=== PATIENT | female | born 1960 | race Caucasian/White ===

== ENCOUNTER 2020-05-10 08:00 | Outpatient (RCR) | payer OTHER, SELFPAY | END 2020-05-19 10:32 | disposition home or self-care (01) | LOC: PT.CARL 08:00 | PROVIDERS: Visit Provider Orthopaedic Surgery Sports Medicine | DX: Z47.1 Aftercare following joint replacement surgery (principal); M25.511 Pain in right shoulder | CPT/HCPCS: 97010; 97014; 97033; 97110; 97140; 97163; 97164; G0283 ==

== ENCOUNTER 2022-01-15 13:50 | Inpatient (IN) | payer MEDICARE, MEDICAID, SELFPAY ==
[2022-01-15] VITALS (12 sets, daily range): BP systolic 145–172; BP diastolic 65–86; PULSE 83–109; RESP 16–22; TEMP 37; O2SAT 54–100; BMI 17.4; BMI 18.6
--- NOTE | 2022-01-15 14:24 | XR_ITS ---
PROCEDURE INFORMATION: Exam: XR Chest Exam date and time: 01/15/2022 2:24 PM Age: 61 years old Clinical indication: Patient HX: Shortness of breath, smoker, no chest surgeries. ; Additional info: SOA TECHNIQUE: Imaging protocol: XR of the chest. Views: 1 view. COMPARISON: No relevant prior studies available. FINDINGS: Airway: Patent Lungs: Diffuse interstitial prominence. Ground-glass and dense airspace consolidation in the right lung base. Diffuse patchy ground-glass airspace opacities seen throughout the lungs. COPD/emphysema is appreciated. Pleural spaces: Unremarkable. No pleural effusion. No pneumothorax. Heart/Mediastinum: The heart is moderately enlarged. Vasculature: Calcified aortic knob. Bones/joints: Reverse right shoulder arthroplasty. Partially visualized lumbar spine fixation hardware without complications. No acute skeletal abnormality or aggressive osseous lesion. IMPRESSION: 1. Diffuse interstitial and early airspace disease, worse in the right lung base. Differential would include pulmonary edema or atypical infectious pneumonia. Atypical viral organisms should be entertained in the appropriate clinical setting. 2. COPD/emphysema.
--- NOTE | 2022-01-15 14:27 | HMH.EDGENADL ---
ED Disposition Clinical Impression: Acute respiratory failure with hypoxia Pneumonia Qualifiers: Pneumonia type: due to unspecified organism Laterality: bilateral Lung location: lower lobe of lung Qualified Code(s): J18.9 - Pneumonia, unspecified organism Sepsis Qualifiers: Sepsis type: sepsis due to unspecified organism Sepsis acute organ dysfunction status: with acute organ dysfunction Severe sepsis acute organ dysfunction type: acute respiratory failure Acute respiratory failure type: with hypoxia Severe sepsis shock status: without septic shock Qualified Code(s): A41.9 - Sepsis, unspecified organism; R65.20 - Severe sepsis without septic shock; J96.01 - Acute respiratory failure with hypoxia Disposition: Admitted As Inpatient Condition on Discharge: Serious Instructions: DI for Altered Mental Status Referrals: Provider,Referral, MD [Primary Care Provider] - - Critical Care Critical Care Time: No Attestation: On 01/15/22, the high probability of a clinically significant, sudden or life threatening deterioration of the following system(s) required my full and direct attention, intervention and personal management. The time I documented below is in addition to time spent performing reported procedures but includes the following listed in this critical care notation. Medical Decision Making - Kayden Inquiry Pt receiving controlled substance: No Vital Signs: 01/15/22 13:52 01/15/22 13:53 01/15/22 13:55 Temperature 98.6 F Temperature Source Oral Pulse Rate Pulse Rate [Left Radial] 103 H Respiratory Rate 16 Blood Pressure Blood Pressure [Right Arm] 172/65 H Blood Pressure Mean Blood Pressure Mean [Right Arm] 100 Blood Pressure Source [Right Arm] Automatic Cuff Blood Pressure Position [Right Arm] Sitting 02 Sat by Pulse Oximetry 54 L 83 L 95 Oxygen Delivery Method Room Air Nasal Cannula Non-Rebreather Oxygen Flow Rate (LPM) 6 15 01/15/22 14:00 01/15/22 14:30 01/15/22 15:30 Temperature Temperature Source Pulse Rate 109 H 99 H 94 H Pulse Rate [Left Radial] Respiratory Rate Blood Pressure 172/85 H 155/82 H 161/86 H Blood Pressure [Right Arm] Blood Pressure Mean Blood Pressure Mean [Right Arm] Blood Pressure Source [Right Arm] Blood Pressure Position [Right Arm] 02 Sat by Pulse Oximetry 55 L 100 100 Oxygen Delivery Method Room Air Non-Rebreather Oxygen Flow Rate (LPM) 01/15/22 16:00 Temperature Temperature Source Pulse Rate 97 H Pulse Rate [Left Radial] Respiratory Rate Blood Pressure 154/86 H Blood Pressure [Right Arm] Blood Pressure Mean 105 Blood Pressure Mean [Right Arm] Blood Pressure Source [Right Arm] Blood Pressure Position [Right Arm] 02 Sat by Pulse Oximetry 100 Oxygen Delivery Method Oxygen Flow Rate (LPM) - Lab Data Lab Results 01/15/22 14:10: WBC 20.0 H, RBC 4.45, Hgb 13.3, Hct 42.4, MCV 95.4, MCH 29.8, MCHC 31.2 L, RDW 16.1, Plt Count 186, MPV 9.3, Neut % (Auto) 93.7 H, Lymph % (Auto) 2.3 L, Hunt % (Auto) 2.9, Eos % (Auto) 0.7, Baso % (Auto) 0.5, Neut # (Auto) 18.7 H, Lymph # (Auto) 0.5 L, Hunt # (Auto) 0.6, Eos # (Auto) 0.1, Baso # (Auto) 0.1, Total Counted 100, Neutrophils % (Manual) 84 H, Lymphocytes % (Manual) 12, Monocytes % (Manual) 4, Platelet Estimate Normal, Hypochromasia 1+, Microcytosis 1+ 01/15/22 14:10: Sodium 127 L, Potassium 4.8, Chloride 90 L, Carbon Dioxide 29, Anion Gap 12.8, BUN 20 H, Creatinine 0.60, Estimated Creat Clear 40, Estimated GFR 101, Est GFR ( Amer) 123, Glucose 104 H, Calcium 8.2 L, Total Bilirubin 1.0, AST 28, ALT 20, Alkaline Phosphatase 164 H, Troponin I 0.03, Total Protein 6.9, Albumin 3.5, Globulin 3.4 H, Albumin/Globulin Ratio 1.0 L 01/15/22 14:10: NT-Pro-B Natriuret Pep [id number] H 01/15/22 14:34: SARS-CoV-2 (PCR) Not detected, Influenza A Untype (PCR) Not detected, Influenza Type B (PCR) Not detected 01/15/22 15:20: Lactate 1.2 01/15/22 16:00: Urine Color Yellow, Urine Appear
[2022-01-15 14:32] LABS: Basophils # 0.1 K/mm3 (0-0.2); Basophils % 0.5 % (0.1-2.0); Eosinophils # 0.1 K/mm3 (0.0-0.4); Eosinophils % 0.7 % (0.1-12.0); Hematocrit 42.4 % (37.0-47.0); Hemoglobin 13.3 g/dL (12.2-16.2); Lymphocytes # 0.5 K/mm3 (0.7-4.5); Lymphocytes % 2.3 % (10-50); Mean Corpuscular HGB Conc 31.2 g/dL (31.8-35.4); Mean Corpuscular Hemoglobin 29.8 pg (27.0-31.2); Mean Corpuscular Volume 95.4 fl (81-99); Mean Platelet Volume 9.3 fl (7.4-10.4); Monocytes # 0.6 K/mm3 (0.1-1.0); Monocytes % 2.9 % (1.7-9.3); Neutrophils # 18.7 K/mm3 (1.8-7.8); Neutrophils % 93.7 % (37.0-80.0); Platelet Count 186 K/mm3 (142-424); Red Blood Count 4.45 M/mm3 (4.20-5.40); Red Cell Distribution Width 16.1 % (11.5-17.5)
--- NOTE | 2022-01-15 14:32 | ECG_ITS ---
APPROVED REPORT Exam: Resting ECG HR:98 bpm ECG Measurements Heart Rate 98 AXES NC 170 P 69 QRSd 79 QRS 0 QT 352 T 73 QTc 407 Conclusion SINUS RHYTHM LEFT ATRIAL ENLARGEMENT [-0.15mV P-WAVE IN V1/V2] POSSIBLE RIGHT VENTRICULAR CONDUCTION DELAY [RSR (QR) IN V1/V2] ABNORMAL ECG UNCONFIRMED REPORT Electronically signed by : Sudheer Tan MD 01/16/2022 19:51:56
[2022-01-15 14:34] LABS: Chloride 90 mmol/L (98-107); Potassium 4.8 mmoL/L (3.5-5.1); Sodium 127 mmol/L (136-145)
[2022-01-15 14:37] LABS: Alanine Aminotransferase 20 U/L (12-78); Albumin Level 3.5 g/dl (3.5-5.0); Alkaline Phosphatase 164 U/L (38-126); Anion Gap 12.8 mEq/L (5-15); Aspartate Amino Transferase 28 U/L (14-36); Blood Urea Nitrogen 20 mg/dl (7-17); Carbon Dioxide 29 mmol/L (22.0-30.0); Creatinine Clearance Estimated 40 mL/min (50-200); Estimated Glomerular Filt Rate 101 ml/min (>60); GFR (African American) 123 ML/MIN (>60); Globulin 3.4 g/dL (1.3-3.2); Total Protein,Serum 6.9 g/dl (6.3-8.2)
[2022-01-15 14:38] LABS: Calcium 8.2 mg/dl (8.4-10.2); Glucose 104 mg/dl (74-100)
[2022-01-15 14:41] LABS: MANUAL DIFFERENTIAL MANUAL DIFFERENTIAL (MANUAL DIFF)
[2022-01-15 14:47] LABS: NT Pro Brain Natriuretic Pep. 16700 pg/mL (0-125)
--- NOTE | 2022-01-15 14:48 | CT_ITS ---
PROCEDURE INFORMATION: Exam: CT Head Without Contrast Exam date and time: 01/15/2022 2:48 PM Age: 61 years old Clinical indication: Altered mental status/memory loss; Confusion or disorientation; Additional info: AMS, fall TECHNIQUE: Imaging protocol: Computed tomography of the head without contrast. Radiation optimization: All CT scans at this facility use at least one of these dose optimization techniques: automated exposure control; mA and/or kV adjustment per patient size (includes targeted exams where dose is matched to clinical indication); or iterative reconstruction. COMPARISON: No relevant prior studies available. FINDINGS: Brain: No acute intracranial hemorrhage.. There is mild diffuse heterogeneity of the white matter attenuation, consistent with chronic white matter ischemic changes. Mild cerebral atrophy Cerebral ventricles: No ventriculomegaly. Paranasal sinuses: Visualized sinuses are unremarkable. No fluid levels. Mastoid air cells: Visualized mastoid air cells are well aerated. Bones/joints: Unremarkable. No acute fracture. Soft tissues: Unremarkable. IMPRESSION: No acute intracranial hemorrhage..
--- NOTE | 2022-01-15 14:48 | CT_ITS ---
PROCEDURE INFORMATION: Exam: CTA Chest With Contrast Exam date and time: 01/15/2022 2:48 PM Age: 61 years old Clinical indication: Shortness of breath; Additional info: Hypoxia, hemoptysis TECHNIQUE: Imaging protocol: Computed tomographic angiography of the chest with contrast. 3D rendering (Not supervised by radiologist): MIP and/or 3D reconstructed images were created by the technologist. Radiation optimization: All CT scans at this facility use at least one of these dose optimization techniques: automated exposure control; mA and/or kV adjustment per patient size (includes targeted exams where dose is matched to clinical indication); or iterative reconstruction. Contrast material: ISOVUE; Contrast volume: 70 ml; Contrast route: INTRAVENOUS (IV); COMPARISON: CR XR CHEST PORTABLE 01/15/2022 2:34 PM FINDINGS: Pulmonary arteries: The pulmonary arteries demonstrate moderate central enlargement, consistent with moderate pulmonary hypertension. No pulmonary emboli. Aorta: Aneurysmal dilation of the mid ascending thoracic aorta measuring 4 cm. The aorta demonstrates mild atherosclerotic calcification. No acute pathology in the aorta. Thyroid: 1.3 cm right thyroid lobe nodule. Consider correlation with nonemergent thyroid ultrasound. Lungs: Basal predominant ground-glass and patchy airspace consolidations appreciated, worse in the right lower lobe and right middle lobe. There is atelectasis in the right lower lobe, right middle lobe, and left lower lobe noted as well. There is interlobular septal thickening in the lung bases. COPD related lung changes. There is diffuse moderate to severe centrilobular emphysema. There is bilateral segmental bronchial wall thickening. There is multifocal mucoid impaction of the bilateral lower lobe segmental bronchi. Pleural spaces: Unremarkable. No pneumothorax. No pleural effusion. Heart: There is calcification of the aortic valve annulus. There is mild atherosclerotic calcification of the coronary arteries. The heart is markedly enlarged. No pericardial thickening or effusion. Lymph nodes: Prominent diffuse mediastinal and bilateral hilar lymph nodes. No axillary adenopathy. Bones/joints: Partially visualized thoracolumbar spine fixation hardware. Reverse right shoulder arthroplasty. No acute skeletal pathology. Mild multilevel degenerative changes of the spine, as manifested by multilevel anterior osteophytes and multilevel decrease in intervertebral disc space. Soft tissues: Unremarkable. Other findings: The visualized intra-abdominal structures demonstrate no acute findings. IMPRESSION: 1. No pulmonary emboli. 2. Mediastinal and bilateral hilar adenopathy, most probably of reactive etiology. 3. Severe and bilateral basal predominant pneumonia, worse in the right lower lobe. Considering the associated multifocal bronchial mucoid impaction, both infectious and aspiration related pneumonia should be entertained. 4. Severe COPD/emphysema. 5. Incidental findings as above. COMMENTS: Consistent with the [employer]'s Incidental Findings Committee white paper (J Am Jt Radiol 2015): In patients aged 35 years and older with an incidental thyroid nodule equal to or greater than 1.[address], MRI or extrathyroidal US, further evaluation with dedicated thyroid US is recommended for patients with normal life expectancy and without comorbidities. For smaller nodules without suspicious features, no further evaluation or follow up is recommended.
[2022-01-15 14:50] LABS: Troponin I 0.03 ng/ml (0.00-0.034)
--- NOTE | 2022-01-15 14:51 | PC.NURSE ---
lab to come draw cultures and lactic
--- NOTE | 2022-01-15 14:57 | PC.NURSE ---
Pt to rad.
[2022-01-15 15:10] LABS: Coronavirus 19, PCR Not Detected (NotDetected); Influenza A, PCR Not Detected (NotDetected); Influenza B, PCR Not Detected (NotDetected)
[2022-01-15 15:23] LABS: Lymphocytes % 12 % (10-50); Monocytes % 4 % (2-9); Neutrophils % 84 % (42-76); Total Cells Counted 100
[2022-01-15 15:24] LABS: Hypochromasia 1+; Microcytosis 1+; Platelet Estimate Normal
[2022-01-15 15:45] LABS: Lactic Acid 1.2 mmol/L (0.7-2.1)
[2022-01-15 16:00] LABS: Microscopic, Urine URINE MICROSCOPIC (MICROSCOPIC)
[2022-01-15 16:03] LABS: Appearance,Urine CLEAR (Clear); Bilirubin,Urine Negative (Negative); Blood, Urine TRACE-L (Negative); Color,Urine YELLOW (Yellow); Glucose,Urine (UA) Negative (Negative); Ketones,Urine TRACE (Negative); Leukocyte Esterase,Urine Negative (Negative); Nitrate,Urine Negative (Negative); Protein,Urine 1+ (Negative); Urobilinogen,Urine 0.2 EU/dl (0.2)
[2022-01-15 16:33] LABS: Bacteria,Urine Trace /lpf; Squamous Epithelial Cell,Urine Occasional #/hpf (0-5)
--- NOTE | 2022-01-15 17:15 | PC.NURSE ---
report given to Orin VILLAREAL
[2022-01-16] VITALS (10 sets, daily range): BP systolic 127–168; BP diastolic 68–85; PULSE 84–106; RESP 16–22; TEMP 36.2–36.9; O2SAT 81–100; BMI 18.6
[2022-01-16 06:48] LABS: Basophils % 0.1 % (0.1-2.0); Eosinophils % 0.1 % (0.1-12.0); Hematocrit 44.6 % (37.0-47.0); Hemoglobin 13.8 g/dL (12.2-16.2); Lymphocytes # 0.4 K/mm3 (0.7-4.5); Lymphocytes % 3.3 % (10-50); Mean Corpuscular Hemoglobin 29.6 pg (27.0-31.2); Mean Corpuscular Volume 95.5 fl (81-99); Monocytes # 0.2 K/mm3 (0.1-1.0); Monocytes % 1.7 % (1.7-9.3); Neutrophils # 12.3 K/mm3 (1.8-7.8); Neutrophils % 94.8 % (37.0-80.0); Platelet Count 174 K/mm3 (142-424); Red Blood Count 4.67 M/mm3 (4.20-5.40)
[2022-01-16 07:12] LABS: MANUAL DIFFERENTIAL MANUAL DIFFERENTIAL (MANUAL DIFF)
--- NOTE | 2022-01-16 07:26 | HMH.PHAVTE ---
[facility] VTE Monitoring - Patient Demographics Admission date: 01/15/22 Report Date: 01/16/22 Time: 07:26 Allergies/Adverse Reactions: Patient Allergies No Known Allergies Allergy (Verified 01/15/22 14:24) Height: 1.63 m Weight: 49.47 kg Patient Problems: Current Active Problems Pneumonia (Acute) Acute respiratory failure with hypoxia (Acute) Sepsis (Acute) - VTE Risk Labs: VTE Related Lab Results Hgb 13.8 g/dL (12.2-16.2) 01/16/22 06:25 Hct 44.6 % (37.0-47.0) 01/16/22 06:25 Plt Count 174 K/mm3 (142-424) 01/16/22 06:25 BUN 20 mg/dl (7-17) H 01/15/22 14:10 Creatinine 0.60 mg/dl (0.52-1.04) 01/15/22 14:10 Estimated Creat Clear 40 mL/min (50-200) 01/15/22 14:10 Was VTE Risk Assessment Performed: Yes VTE Score: 1 Clinical Trial Participant: No - Prophylaxis VTE Prophylaxis Ordered?: Yes Types of VTE Prophylaxis: TEDS Knee High
[2022-01-16 07:52] LABS: Lymphocytes % 4 % (10-50); Neutrophils % 96 % (42-76); Platelet Estimate Normal; RBC Morphology Normal; Total Cells Counted 100
--- NOTE | 2022-01-16 09:27 | HMH.HP ---
*Admission Date: 01/15/22 *Chief complaint: Altered mental status *History of present illness: History is limited. History obtained from brother and boyfriend. Both of them are able to provide very limited information. The patient is unable to provide any further information herself. The patient saw her primary care provider about a week to 2 ago. Brother and boyfriend are uncertain why she saw him. They state that her oxygen was found to be very low and they wanted her started on oxygen, but she refused. They also wanted her to go straight to [facility] for further testing and she also refused that and came home. He thinks that they told her she might have pneumonia or something in her lungs. She is apparently supposed to have some sort of further evaluation, possibly a biopsy within the next few days. They state that she fell on 3 days ago and cracked some ribs. She did not seek medical care for that fall. Brother states that he talked to her today and noted that she was disoriented and short of breath. The patient currently denies any pain, but is disoriented. Boyfriend and brother report that she is on gabapentin and Linzess, no other medications. She is a smoker but does not have a diagnosis of COPD or any other lung or heart conditions. She is not diabetic. She has been vaccinated against COVID-19, but has not had a booster. No known exposures to any illnesses (Per Dr. Kaba). 61-year-old female patient sitting up in bed, she denies any needs at present. Current oxygenation 98% on nonrebreather. She denies wearing oxygen at home. She does report she is a longtime smoker. She is a very poor historian and we will make attempts to contact family for past medical history. [facility] History I have reviewed the patient's past medical history: Yes Medical History: Denies:: Cancer, Diabetes Mellitus Type 1, Diabetes Mellitus Type 2, MRSA *Have you ever received a pneumonia vaccine?: Yes *Have you received a flu vaccine this season?: Yes Other Medical History: Reports: Arthritis Amputation: No - *Social History Last grade of school completed: High school graduate Smoking Status: Current every day smoker Tobacco Type: cigarettes # Packs/Day (cigarettes): 3 Alcohol Intake: never *Occupational Status:: disabled Housing: house Household Members: significant other *Travel in the last 8 weeks: None Family Hx:: Cancer Review of Systems - Review of Systems Review of systems:: pertinent systems reviewed and negative unless documented below Limited data, patient is poor historian - Constitutional Reports chills, Reports fatigue, Denies fever(s) - Eyes Denies double vision, Denies loss of vision - ENT Denies difficulty swallowing, Denies headache(s) - *Cardiovascular Reports shortness of breath, Reports shortness of breath with activity, Denies chest pain - *Respiratory Reports chest congestion, Reports cough, Reports shortness of breath, Reports shortness of breath with activity - Integumentary/Breasts Reports change in skin color, Reports lesions, Denies rash - *Neurologic Denies dizziness, Denies loss of vision Meds Home Medications Medication Instructions Recorded Confirmed Type Furosemide [Furosemide 20mg Tab*] 20 mg PO DAILY 01/16/22 01/16/22 History Gabapentin [Gabapentin 400mg Cap] 400 mg PO DAY 01/16/22 01/16/22 History Linaclotide [Linzess] 145 mcg PO DAILY 01/16/22 01/16/22 History Potassium Chloride [Micro-K 10mEq 20 meq PO DAILY 01/16/22 01/16/22 History cap] lisinopriL [Lisinopril] 5 mg PO DAILY 01/16/22 01/16/22 History Allergies Allergy/AdvReac Type Severity Reaction Status Date / Time No Known Allergies Allergy Verified 01/15/22 14:24 Exam Vital signs and Labs for Last 24 Hours: Temp Pulse Resp BP Pulse Ox 97.6 F 85 19 168/79 H 81 L 01/16/22 08:00 01/16/22 11:40 01/16/22 08:00 01/16/22 08:00 01/16/22 11:40 Laboratory
[2022-01-16 09:33] LABS: Anion Gap 12.6 mEq/L (5-15); Blood Urea Nitrogen 22 mg/dl (7-17); Calcium 8.6 mg/dl (8.4-10.2); Carbon Dioxide 30 mmol/L (22.0-30.0); Chloride 97 mmol/L (98-107); Creatinine Clearance Estimated 46 mL/min (50-200); Estimated Glomerular Filt Rate 125 ml/min (>60); GFR (African American) 151 ML/MIN (>60); Glucose 110 mg/dl (74-100); Potassium 4.6 mmoL/L (3.5-5.1); Sodium 135 mmol/L (136-145)
--- NOTE | 2022-01-16 09:33 | HMH.PULMCON ---
*Admission Date: 01/15/22 *Reason for consult:: Acute hypoxic respiratory failure *History of present illness: Patient is a poor historian. Limited history available. Ms. Kruse is a 61-year-old female with questionable around 2-pack-year smoking history not using any oxygen at baseline presented to the hospital with worsening respiratory distress and pulmonary was called for further management [facility] History Medical History: Denies:: Cancer, Diabetes Mellitus Type 1, Diabetes Mellitus Type 2, MRSA *Have you ever received a pneumonia vaccine?: Yes *Have you received a flu vaccine this season?: Yes Other Medical History: Reports: Arthritis Amputation: No - *Social History Last grade of school completed: High school graduate Smoking Status: Current every day smoker Tobacco Type: cigarettes # Packs/Day (cigarettes): 3 Alcohol Intake: never *Occupational Status:: disabled Housing: house Household Members: significant other *Travel in the last 8 weeks: None Family Hx:: Cancer ROS - Review of Systems Limited review of systems, poor historian. - Cons Reports chills - Card Reports shortness of breath, Reports shortness of breath with activity - Resp Respiratory: Reports chest congestion, Reports cough, Reports dyspnea on exertion, Reports excessive phlegm production - GI Gastrointestingal: Denies: abdominal pain - Psych Denies thoughts of hurting/killing others, Denies thoughts of hurting/killing yourself Meds Home Medications Medication Instructions Recorded Confirmed Type Furosemide [Furosemide 20mg Tab*] 20 mg PO DAILY 01/16/22 01/16/22 History Gabapentin [Gabapentin 400mg Cap] 400 mg PO 5XDAY 01/16/22 01/16/22 History Linaclotide [Linzess] 145 mcg PO DAILY 01/16/22 01/16/22 History Potassium Chloride [Micro-K 10mEq 20 meq PO DAILY 01/16/22 01/16/22 History cap] lisinopriL [Lisinopril] 5 mg PO DAILY 01/16/22 01/16/22 History Allergies Allergy/AdvReac Type Severity Reaction Status Date / Time No Known Allergies Allergy Verified 01/15/22 14:24 Exam - Constitutional Constitutional:: Present: no acute distress - HENMT Exam HENMT: Present: normocephalic - Eye Exam Eyes:: Present: normal appearance both eyes and related structures - Neck Exam Neck:: Present: normal visual inspection - Respiratory Exam Respiratory:: Present: able to speak in complete sentences, no respiratory distress, rhonchi. Absent: wheezing - Cardiovascular Exam Cardiac:: Present: S1, S2 - GI Exam GI:: Present: soft - Skin Exam Skin: Present: warm, no rash - Neurological Exam Neurological: Present: awake. Absent: alert, normal cognition, oriented X3 - Extremities Exam Extremities: Present: no cyanosis, no clubbing, no edema Internal Medicine - CN: Reslt - Labs CBC & Chem 7: 01/16/22 06:25 01/16/22 08:07 Labs: Short CBC 01/15/22 01/16/22 Range/Units 14:10 06:25 WBC 20.0 H 13.0 H D (4.8-10.8) K/mm3 Hgb 13.3 13.8 (12.2-16.2) g/dL Hct 42.4 44.6 (37.0-47.0) % Plt Count 186 174 (142-424) K/mm3 BMP 01/15/22 14:10 Sodium 127 L Potassium 4.8 Chloride 90 L Carbon Dioxide 29 BUN 20 H Creatinine 0.60 Glucose 104 H Calcium 8.2 L Cardiac Enzymes 01/15/22 Range/Units 14:10 Troponin I 0.03 (0.00-0.034) ng/ml Liver Function 01/15/22 Range/Units 14:10 Total Bilirubin 1.0 (0.2-1.3) mg/dl AST 28 (14-36) U/L ALT 20 (12-78) U/L Alkaline Phosphatase 164 H (38-126) U/L Albumin 3.5 (3.5-5.0) g/dl Urine 01/15/22 Range/Units 16:00 Urine Color Yellow (Yellow) Urine Appearance Clear (Clear) Urine pH 6.0 (5.0-8.5) Ur Specific [place] 1.020 (1.005-1.030) Urine Protein 1+ (Negative) Urine Glucose (UA) Negative (Negative) Assessment and Plan - Assessment and plan all Dx Assessment and Plan for all problems:: #Acute hypoxic respiratory failure: #Community-acquired pneumonia: Pa
--- NOTE | 2022-01-16 10:00 | SW/DCPLANNER ---
I spoke with this patient S.O. regarding discharge plans: S.O. stated that he does reside at home with patient and present most of the day. S.O. stated that patient does not have home O2 at this time. S.O. stated that he plans on patient returning home at time of discharge. Discharge date is unknown at this time.
[2022-01-16 10:26] LABS: ABG Oxygen Saturation 98 % (90-100); ABG PCO2 44.8 mmhg (35.0-45.0); ABG PH 7.43 mmol/L (7.35-7.45); ABG PO2 97.2 mmhg (80-100); ABG TCO2 30.4 mmhg (23-27)
[2022-01-16 10:27] LABS: Oxygen 100 NRB %; Source Left Radial
[2022-01-16 16:27] LABS: ABG Base Excess 1.9 mmol/L (-2.4-2.3); ABG Oxygen Saturation 85 % (90-100); ABG PCO2 46.7 mmhg (35.0-45.0); ABG PH 7.38 mmol/L (7.35-7.45); ABG PO2 51.9 mmhg (80-100); ABG TCO2 28.4 mmhg (23-27)
[2022-01-16 16:31] LABS: Allen's Test acceptable; Oxygen 50 %; Source Left Radial
--- NOTE | 2022-01-16 16:31 | PC.NURSE ---
SPUTUM COLLECTED AND SENT TO LAB
[2022-01-17] VITALS (9 sets, daily range): BP systolic 130–161; BP diastolic 59–79; PULSE 65–90; RESP 16–20; TEMP 36.4–37; O2SAT 90–98; BMI 19.5
[2022-01-17 07:24] LABS: Basophils % 0.3 % (0.1-2.0); Eosinophils % 0.2 % (0.1-12.0); Hematocrit 41.3 % (37.0-47.0); Hemoglobin 12.3 g/dL (12.2-16.2); Lymphocytes # 0.4 K/mm3 (0.7-4.5); Mean Corpuscular HGB Conc 29.7 g/dL (31.8-35.4); Mean Corpuscular Hemoglobin 29.1 pg (27.0-31.2); Mean Corpuscular Volume 97.8 fl (81-99); Mean Platelet Volume 8.7 fl (7.4-10.4); Monocytes # 0.4 K/mm3 (0.1-1.0); Monocytes % 3.8 % (1.7-9.3); Neutrophils # 9.2 K/mm3 (1.8-7.8); Neutrophils % 91.7 % (37.0-80.0); Platelet Count 156 K/mm3 (142-424); Red Blood Count 4.23 M/mm3 (4.20-5.40); Red Cell Distribution Width 16.1 % (11.5-17.5)
[2022-01-17 07:25] LABS: MANUAL DIFFERENTIAL MANUAL DIFFERENTIAL (MANUAL DIFF)
[2022-01-17 07:36] LABS: Blood Urea Nitrogen 24 mg/dl (7-17); Calcium 8.6 mg/dl (8.4-10.2); Carbon Dioxide 32 mmol/L (22.0-30.0); Chloride 101 mmol/L (98-107); Creatinine Clearance Estimated 48 mL/min (50-200); Estimated Glomerular Filt Rate 101 ml/min (>60); GFR (African American) 123 ML/MIN (>60); Glucose 110 mg/dl (74-100); Sodium 137 mmol/L (136-145)
[2022-01-17 08:16] LABS: Lymphocytes % 2 % (10-50); Monocytes % 1 % (2-9); Neutrophils % 97 % (42-76); Total Cells Counted 100
[2022-01-17 08:17] LABS: Platelet Estimate Normal
--- NOTE | 2022-01-17 09:16 | HMH.PULMPN ---
Internal Medicine - PN: Subj *Date: 01/17/22 *Time: 10:33 Interval history: No acute respiratory vents overnight. Patient admits continued improvement in her symptoms. Exam - Constitutional Constitutional:: Present: no acute distress, comfortable - HENMT Exam HENMT: Present: normocephalic, atraumatic - Eye Exam Eyes:: Present: normal appearance both eyes and related structures - Neck Exam Neck:: Present: normal visual inspection - Respiratory Exam Respiratory:: Present: able to speak in complete sentences, no respiratory distress. Absent: wheezing - Cardiovascular Exam Cardiac:: Present: S1, S2 - GI Exam GI:: Present: soft - Skin Exam Skin: Present: warm, no rash - Neurological Exam Neurological: Present: alert, awake, normal cognition - Extremities Exam Extremities: Present: no cyanosis, no clubbing, no edema Assessment and Plan (1) Pneumonia Status: Acute Qualifiers: Pneumonia type: due to unspecified organism Laterality: bilateral Lung location: lower lobe of lung Qualified Code(s): J18.9 - Pneumonia, unspecified organism Category: Medical Code(s): J18.9 - Pneumonia, unspecified organism (2) Acute respiratory failure with hypoxia Status: Acute Category: Medical Code(s): J96.01 - Acute respiratory failure with hypoxia (3) Sepsis Status: Acute Qualifiers: Sepsis type: sepsis due to unspecified organism Sepsis acute organ dysfunction status: with acute organ dysfunction Severe sepsis acute organ dysfunction type: acute respiratory failure Acute respiratory failure type: with hypoxia Severe sepsis shock status: without septic shock Qualified Code(s): A41.9 - Sepsis, unspecified organism; R65.20 - Severe sepsis without septic shock; J96.01 - Acute respiratory failure with hypoxia Category: Medical Code(s): A41.9 - Sepsis, unspecified organism (4) Community acquired bacterial pneumonia Status: Acute Category: Medical Code(s): J15.9 - Unspecified bacterial pneumonia - Assessment and plan all Dx Assessment and Plan for all problems:: #Acute hypoxic respiratory failure: #Community-acquired pneumonia: Patient is a poor historian, limited history available. Questionable 2-PPD smoking history not using any oxygen at baseline presented with worsening respiratory distress. CTA on admission, no pulmonary embolism, bilateral predominant lower lobe airspace disease right greater than left. CT chest also noted to have bronchiectasis. Leukocytosis on admission, improving. Patient was initiated on ceftriaxone azithromycin along with methylprednisolone and nebulization treatments. Interval update: Patient respiratory status continued to improve. On 2 L nasal cannula this morning. Saturating 90%.. Talk with the patient family this morning, patient has been noncompliant with all her medications except for gabapentin. She has greater than 10-[id number] smoking current smoker. She has been noncompliant with her inhaler therapy. Sputum less than 10 WBC rare gram-positive cocci likely result in MURF, will continue current antibiotics Plan: -Continue nasal oxygen supplementation to maintain O2 saturation goal of 80% and above -Continue incentive spirometry. -Continue Trelegy 100 inhaler, will change duo nebs to every 6 hours as needed -Prednisone 40 mg daily x5 days -Ceftriaxone and azithromycin X5 DAYS, can be weaned to levofloxacin to complete total of 5-day course prior to discharge. #Thank you for involving pulmonary in this patient care. We will continue to follow.
--- NOTE | 2022-01-17 09:27 | XR_ITS ---
FINAL REPORT CLINICAL HISTORY: soa COMPARISON: January 15, 2022 FINDINGS: Two views of the chest were obtained. Cardiomegaly is noted. The mediastinum is normal. There is a worsening left base opacity. There is a small left pleural effusion. There is persistent but partially improved right basilar opacity. There is no pneumothorax. The bony thorax is intact. IMPRESSION: Worsening left base opacity could represent pneumonia or atelectasis. Persistent but partially improved right base opacity. Small left pleural effusion. Reviewed, Interpreted and Dictated by Arthur Mora III, MD Transcribed by Malaika Agee Authenticated by Arthur Mora III, MD on 01/17/2022 11:09:33 AM [facility]
--- NOTE | 2022-01-17 09:27 | HMH.ACPN2 ---
Internal Medicine - PN: Subj *Date: 01/17/22 *Time: 19:55 Interval history: 61-year-old female patient sitting up in bed she denies any shortness of breath or chest pain during the night. She is currently on room air with oxygen saturation of 96%, she reports she is feeling better today than yesterday. When asked she denies having any inhalers at home and has not been using any. Currently blood cultures x2 no growth at 48 hours Exam Vital signs and Labs for Last 24 Hours: Temp Pulse Resp BP Pulse Ox 97.7 F 65 17 149/62 H 98 01/17/22 08:00 01/17/22 08:00 01/17/22 08:00 01/17/22 08:00 01/17/22 08:00 Laboratory Results - last 24 hr 01/15/22 14:35: Specimen Source Left radial, O2 % 100 nrb, ABG pH 7.43, ABG pCO2 44.8, ABG pO2 97.2, ABG HCO3 29.0 H, ABG Total CO2 30.4 H, ABG O2 Saturation 98, ABG Base Excess 4.0 H 01/16/22 08:07: Sodium 135 L, Potassium 4.6, Chloride 97 L, Carbon Dioxide 30, Anion Gap 12.6, BUN 22 H, Creatinine 0.50 L, Estimated Creat Clear 46, Estimated GFR 125, Est GFR ( Amer) 151 D, Glucose 110 H, Calcium 8.6 01/16/22 09:16: Specimen Source Left radial, O2 % 50, ABG pH 7.38, ABG pCO2 46.7 H, ABG pO2 51.9 L, ABG HCO3 27.0 H, ABG Total CO2 28.4 H, ABG O2 Saturation 85 L*, ABG Base Excess 1.9, Emigdio Test acceptable 01/17/22 07:05: WBC 10.0, RBC 4.23, Hgb 12.3, Hct 41.3, MCV 97.8, MCH 29.1, MCHC 29.7 L, RDW 16.1, Plt Count 156, MPV 8.7, Neut % (Auto) 91.7 H, Lymph % (Auto) 4.0 L, [place] % (Auto) 3.8, Eos % (Auto) 0.2, Baso % (Auto) 0.3, Neut # (Auto) 9.2 H, Lymph # (Auto) 0.4 L, [place] # (Auto) 0.4, Eos # (Auto) 0.0, Baso # (Auto) 0.0, Total Counted 100, Neutrophils % (Manual) 97 H, Lymphocytes % (Manual) 2 L, Monocytes % (Manual) 1 L, Platelet Estimate Normal 01/17/22 07:05: Sodium 137, Potassium 4.0, Chloride 101, Carbon Dioxide 32 H, Anion Gap 8.0, BUN 24 H, Creatinine 0.60, Estimated Creat Clear 48, Estimated GFR 101, Est GFR ( Amer) 123, Glucose 110 H, Calcium 8.6 I & O for Last 24 hours: Intake & Output 01/14/22 01/15/22 01/16/22 01/17/22 23:59 23:59 23:59 23:59 Intake Total 240 / 270 390 / 390 Output Total 0 / 0 Balance 240 / 270 390 / 390 Weight 108 lb 8 oz 109 lb 1.003 oz 114 lb 9.6 oz Microbiology Reports for the Last 24 Hours: Microbiology 01/16/22 16:28 Sputum - Expectorated Sputum Gram Stain - Final - Constitutional no acute distress, chronically ill appearing - *Routine HEENT Exam Head: Present: normocephalic Eye: Present: EOMI ENT: Present: mucous membranes moist - *Routine Neck Exam Present: trachea midline. Absent: tracheal deviation - *Routine Respiratory Exam Present: decreased breath sounds. Absent: accessory muscle use - *Routine Cardiovascular Exam Present: RRR - *Routine Abdominal Exam Present: soft, normoactive bowel sounds. Absent: tenderness, guarding - *Routine Extremities Exam Present: full ROM, pulses intact. Absent: cyanosis, clubbing, edema - *Routine Skin Exam Present: intact, dry. Absent: cyanosis, erythema - *Routine Neurological Exam Present: alert, oriented X3. Absent: motor deficit - Routine Psychiatric Exam Present: normal affect, normal thought process Assessment and Plan (1) Pneumonia Status: Acute Qualifiers: Pneumonia type: due to unspecified organism Laterality: bilateral Lung location: lower lobe of lung Qualified Code(s): J18.9 - Pneumonia, unspecified organism Category: Medical Code(s): J18.9 - Pneumonia, unspecified organism (2) Acute respiratory failure with hypoxia Status: Acute Category: Medical Code(s): J96.01 - Acute respiratory failure with hypoxia (3) Sepsis Status: Acute Qualifiers: Sepsis type: sepsis due to unspecified organism Sepsis acute organ dysfunction status: with acute organ dysfunction Severe sepsis acute organ dysfunction type: acute respiratory failure Acute respiratory failure type: with hypoxia Severe sepsis shock status: wit
[2022-01-17 10:22] LABS: Adenovirus,PCR Not Detected (NotDetected); Bordetella Pertussis Not Detected (NotDetected); Chlamydophila Pneumoniae, PCR Not Detected (NotDetected); Coronavirus 19, PCR Not Detected (NotDetected); Coronavirus 229E Not Detected (NotDetected); Coronavirus NL63 Not Detected (NotDetected); Coronavirus OC43 Not Detected (NotDetected); Coronovirus HKU1,PCR Not Detected (NotDetected); Human Metapneumovirus Not Detected (NotDetected); Influenza A, PCR Not Detected (NotDetected); Influenza AH1, 2009 Not Detected (NotDetected); Influenza AH1, PCR Not Detected (NotDetected); Influenza AH3,PCR Not Detected (NotDetected); Influenza B, PCR Not Detected (NotDetected); Mycoplasma Pneumoniae, PCR Not Detected (NotDetected); Parainfluenza 1, PCR Not Detected (NotDetected); Parainfluenza 2, PCR Not Detected (NotDetected); Parainfluenza 3, PCR Not Detected (NotDetected); Parainfluenza 4, PCR Not Detected (NotDetected); Respiratory Syncytial Virus Not Detected (NotDetected); Rhinovirus/Enterovirus Not Detected (NotDetected)
[2022-01-17 10:30] LABS: Ammonia < 9 umol/L (9-30)
--- NOTE | 2022-01-17 14:14 | PC.NURSE ---
rounded on patient. patient was up at sink filling out her menu for tomorrow. educated patient and family on her new inhaler and how to use. also educated on pleurisy pain with coughing. no other concerns, questions or needs voiced at this time.
[2022-01-18] VITALS: BP 153/81; PULSE 78; RESP 22; TEMP 36.4; O2SAT 92
[2022-01-18 04:00] VITALS: BP 155/82; PULSE 71; RESP 16; TEMP 37; O2SAT 95
[2022-01-18 06:00] VITALS: BMI 18.6
[2022-01-18 06:45] LABS: Basophils % 0.3 % (0.1-2.0); Hematocrit 37.5 % (37.0-47.0); Hemoglobin 11.8 g/dL (12.2-16.2); Lymphocytes # 0.7 K/mm3 (0.7-4.5); Lymphocytes % 8.2 % (10-50); Mean Corpuscular HGB Conc 31.5 g/dL (31.8-35.4); Mean Corpuscular Hemoglobin 29.6 pg (27.0-31.2); Monocytes # 0.4 K/mm3 (0.1-1.0); Monocytes % 4.8 % (1.7-9.3); Neutrophils % 86.6 % (37.0-80.0); Platelet Count 129 K/mm3 (142-424); Red Blood Count 3.99 M/mm3 (4.20-5.40); Red Cell Distribution Width 15.8 % (11.5-17.5); White Blood Count 8.1 K/mm3 (4.8-10.8)
[2022-01-18 06:51] LABS: MANUAL DIFFERENTIAL MANUAL DIFFERENTIAL (MANUAL DIFF)
[2022-01-18 07:19] LABS: Anion Gap 5.6 mEq/L (5-15); Blood Urea Nitrogen 22 mg/dl (7-17); Calcium 8.4 mg/dl (8.4-10.2); Carbon Dioxide 35 mmol/L (22.0-30.0); Chloride 98 mmol/L (98-107); Creatinine Clearance Estimated 46 mL/min (50-200); Estimated Glomerular Filt Rate 101 ml/min (>60); GFR (African American) 123 ML/MIN (>60); Glucose 88 mg/dl (74-100); Potassium 3.6 mmoL/L (3.5-5.1); Sodium 135 mmol/L (136-145)
[2022-01-18 07:42] VITALS: O2SAT 95
[2022-01-18 08:00] VITALS: BP 151/70; PULSE 90; RESP 14; TEMP 36.6; O2SAT 95
[2022-01-18 09:04] LABS: Lymphocytes % 8 % (10-50); Monocytes % 3 % (2-9); Neutrophils % 89 % (42-76); Platelet Estimate Normal; Total Cells Counted 100
--- NOTE | 2022-01-18 09:34 | HMH.DCSUM ---
General - General Admission date:: 01/15/22 Discharge date: 01/18/22 HPI HPI: History is limited. History obtained from brother and boyfriend. Both of them are able to provide very limited information. The patient is unable to provide any further information herself. The patient saw her primary care provider about a week to 2 ago. Brother and boyfriend are uncertain why she saw him. They state that her oxygen was found to be very low and they wanted her started on oxygen, but she refused. They also wanted her to go straight to [facility] for further testing and she also refused that and came home. He thinks that they told her she might have pneumonia or something in her lungs. She is apparently supposed to have some sort of further evaluation, possibly a biopsy within the next few days. They state that she fell on 3 days ago and cracked some ribs. She did not seek medical care for that fall. Brother states that he talked to her today and noted that she was disoriented and short of breath. The patient currently denies any pain, but is disoriented. Boyfriend and brother report that she is on gabapentin and Linzess, no other medications. She is a smoker but does not have a diagnosis of COPD or any other lung or heart conditions. She is not diabetic. She has been vaccinated against COVID-19, but has not had a booster. No known exposures to any illnesses (Per Dr. Kaba). 61-year-old female patient sitting up in bed, she denies any needs at present. Current oxygenation 98% on nonrebreather. She denies wearing oxygen at home. She does report she is a longtime smoker. She is a very poor historian and we will make attempts to contact family for past medical history. Hospital Course Hospital Course: 61-year-old female patient presented to the [facility] emergency department with increasing shortness of breath and confusion and was admitted with pneumonia. 01/15/22 CXR: IMPRESSION: 1. Diffuse interstitial and early airspace disease, worse in the right lung base. Differential would include pulmonary edema or atypical infectious pneumonia. Atypical viral organisms should be entertained in the appropriate clinical setting. 2. COPD/emphysema. Electronically signed by Gerardo Parra MD 01/15/22 Chest CTA: FINDINGS: Pulmonary arteries: The pulmonary arteries demonstrate moderate central enlargement, consistent with moderate pulmonary hypertension. No pulmonary emboli. Aorta: Aneurysmal dilation of the mid ascending thoracic aorta measuring 4 cm. The aorta demonstrates mild atherosclerotic calcification. No acute pathology in the aorta. Thyroid: 1.3 cm right thyroid lobe nodule. Consider correlation with nonemergent thyroid ultrasound. Lungs: Basal predominant ground-glass and patchy airspace consolidations appreciated, worse in the right lower lobe and right middle lobe. There is atelectasis in the right lower lobe, right middle lobe, and left lower lobe noted as well. There is interlobular septal thickening in the lung bases. COPD related lung changes. There is diffuse moderate to severe centrilobular emphysema. There is bilateral segmental bronchial wall thickening. There is multifocal mucoid impaction of the bilateral lower lobe segmental bronchi. Pleural spaces: Unremarkable. No pneumothorax. No pleural effusion. Heart: There is calcification of the aortic valve annulus. There is mild atherosclerotic calcification of the coronary arteries. The heart is markedly enlarged. No pericardial thickening or effusion. Lymph nodes: Prominent diffuse mediastinal and bilateral hilar lymph nodes. No axillary adenopathy. Bones/joints: Partially visualized thoracolumbar spine fixation hardware. Reverse right shoulder arthroplasty. No acute skeletal pathology. Mild multilevel degenerative changes of the spine, as manifested by
--- NOTE | 2022-01-18 09:37 | HMH.OTEV ---
OT Inpatient Evaluation Rehab OT IP Evaluation Start: 01/18/22 08:39 Freq: ONCE Status: Complete Protocol: Document 01/18/22 09:26 FELIZ (Rec: 01/18/22 09:36 CIERRAOMID [id number]) Rehab OT IP Assessment Subjective History History is limited. History obtained from brother and boyfriend. Both of them are able to provide very limited information. The patient is unable to provide any further information herself. The patient saw her primary care provider about a week to 2 ago . Brother and boyfriend are uncertain why she saw him. They state that her oxygen was found to be very low and they wanted her started on oxygen, but she refused. They also wanted her to go straight to [facility] for further testing and she also refused that and came home. He thinks that they told her she might have pneumonia or something in her lungs. She is apparently supposed to have some sort of further evaluation, possibly a biopsy within the next few days. They state that she fell on 3 days ago and cracked some ribs. She did not seek medical care for that fall. Brother states that he talked to her today and noted that she was disoriented and short of breath. The patient currently denies any pain, but is disoriented. Boyfriend and brother report that she is on gabapentin and Linzess, no other medications. She is a smoker but does not have a diagnosis of COPD or any other lung or heart conditions. She is not diabetic. She has been vaccinated against COVID- 19, but has not had a booster. No known exposures to any
--- NOTE | 2022-01-18 09:41 | HMH.PULMPN ---
Internal Medicine - PN: Subj *Date: 01/18/22 *Time: 10:31 Interval history: No acute respiratory vents overnight. Patient admits continued improvement in her symptoms. Exam - Constitutional Constitutional:: Present: no acute distress, comfortable - HENMT Exam HENMT: Present: normocephalic, atraumatic - Eye Exam Eyes:: Present: normal appearance both eyes and related structures - Neck Exam Neck:: Present: normal visual inspection - Respiratory Exam Respiratory:: Present: able to speak in complete sentences, no respiratory distress. Absent: crackles, wheezing - Cardiovascular Exam Cardiac:: Present: S1, S2 - GI Exam GI:: Present: soft - Skin Exam Skin: Present: warm, no rash - Neurological Exam Neurological: Present: alert, awake. Absent: normal cognition - Extremities Exam Extremities: Present: no cyanosis, no clubbing, no edema Assessment and Plan (1) Pneumonia Status: Acute Qualifiers: Pneumonia type: due to unspecified organism Laterality: bilateral Lung location: lower lobe of lung Qualified Code(s): J18.9 - Pneumonia, unspecified organism Category: Medical Code(s): J18.9 - Pneumonia, unspecified organism (2) Acute respiratory failure with hypoxia Status: Acute Category: Medical Code(s): J96.01 - Acute respiratory failure with hypoxia (3) Sepsis Status: Acute Qualifiers: Sepsis type: sepsis due to unspecified organism Sepsis acute organ dysfunction status: with acute organ dysfunction Severe sepsis acute organ dysfunction type: acute respiratory failure Acute respiratory failure type: with hypoxia Severe sepsis shock status: without septic shock Qualified Code(s): A41.9 - Sepsis, unspecified organism; R65.20 - Severe sepsis without septic shock; J96.01 - Acute respiratory failure with hypoxia Category: Medical Code(s): A41.9 - Sepsis, unspecified organism (4) Community acquired bacterial pneumonia Status: Acute Category: Medical Code(s): J15.9 - Unspecified bacterial pneumonia - Assessment and plan all Dx Assessment and Plan for all problems:: #Acute hypoxic respiratory failure: #Community-acquired pneumonia: Patient is a poor historian, limited history available. Questionable 2-PPD smoking history not using any oxygen at baseline presented with worsening respiratory distress. CTA on admission, no pulmonary embolism, bilateral predominant lower lobe airspace disease right greater than left. CT chest also noted to have bronchiectasis. Leukocytosis on admission, improving. Patient was initiated on ceftriaxone azithromycin along with methylprednisolone and nebulization treatments. Interval update: Patient respiratory status continued to improve. She was weaned to room air this morning with saturations maintained at 90% and above. I have extensively discussed the patient however it is interesting to notice that patient denies any prior knowledge of COPD or she being prescribed any inhalers however her boyfriend that stays with the patient has a different story where patient has a diagnosis COPD and she has been noncompliant with inhalers. I have extensively discussed the patient regarding the need to continue her Trelegy inhaler and will follow in the clinic in 4 to 6 weeks with a full PFT and 6-minute walk testing and will plan further. Plan: -Continue incentive spirometry. -Continue Trelegy 100 inhaler, long with albuterol/duo nebs to every 6 hours as needed -Prednisone 40 mg daily x5 days -Ceftriaxone and azithromycin X5 DAYS, can be weaned to levofloxacin to complete total of 5-day course prior to discharge. #Thank you for involving pulmonary in this patient care. We will follow in pulmonary clinic in 4 to 6 weeks with a full PFT and 6-minute walk testing.
--- NOTE | 2022-01-18 10:20 | DIET.NUTRFU ---
During rounds Dr Sheldon and this RD expressed the importance for getting routine meals in and drinking supplements to maintain weight at home. She cannot afford to skip multiple meals throughout the day and maintain strength. Family present during review. Plans to discharge home with family today
--- NOTE | 2022-01-18 10:51 | HMH.PTEV ---
Physical Therapy Evaluation Rehab PT IP Evaluation Start: 01/18/22 08:38 Freq: ONCE Status: Active Protocol: Document 01/18/22 10:47 NELYRALPH (Rec: 01/18/22 10:51 PURVI [id number]) Subjective/History History History History is limited. History obtained from brother and boyfriend. Both of them are able to provide very limited information. The patient is unable to provide any further information herself. The patient saw her primary care provider about a week to 2 ago . Brother and boyfriend are uncertain why she saw him. They state that her oxygen was found to be very low and they wanted her started on oxygen, but she refused. They also wanted her to go straight to [facility] for further testing and she also refused that and came home. He thinks that they told her she might have pneumonia or something in her lungs. She is apparently supposed to have some sort of further evaluation, possibly a biopsy within the next few days. They state that she fell on 3 days ago and cracked some ribs. She did not seek medical care for that fall. Brother states that he talked to her today and noted that she was disoriented and short of breath. Subjective Subjective No complaints from pt - agrees to participate w/ therapy Rehab PT IP Eval Objective Appearance Patient Behavior Appropriate,Cooperative Patient Orientation Name,Birthday,Year,Situation Difficulty following instructions none Speech Pattern Clear,Appropriate Ambulation Patient Able to Ambulate Yes Ambulation Observation IP General Gait Pattern Observation No Deviations/Normal Ambulation Distance (feet) 60 Ambulation Assistive Device None Ambulation Ability Supervision/Stand by Balance Ability to Arise
--- NOTE | 2022-01-18 11:29 | CARE MANAGER ---
Nebulizer ordered for this patient, called [facility] (per patient choice) and faxed order and demographic information, they will deliver later today to patient.
[2022-01-18 12:00] VITALS: BP 152/71; PULSE 80; RESP 16; TEMP 36.6; O2SAT 95
--- NOTE | 2022-01-18 13:51 | HMH.PHAINT ---
Discharge counseling complete. Informed patient of new medications, purpose, how to take, and potential side effects. Pt expressed concern over her ability to quit smoking and frustrations with family pushing her to do so. I explained potential smoking cessation options including gum, lozenge, patch, and Chantix. Pt seemed receptive but slightly hesitant. Emphasized the importance of compliance with her new medications.
--- NOTE | 2022-01-19 13:43 | CARE MANAGER ---
Spoke with patient and she states that she is doing well, no problems at this time.
== END 2022-01-18 13:59 | disposition home or self-care (01) | DRG 871 ==
LOC: ER 16:24 → 2ND 16:35
PROVIDERS: Nurse Practitioner Family; Admitting Provider Emergency Medicine; Emergency Provider Emergency Medicine; Visit Provider Emergency Medicine
DX: A41.9 Sepsis, unspecified organism (principal); J96.01 Acute respiratory failure with hypoxia; J18.9 Pneumonia, unspecified organism; R65.20 Severe sepsis without septic shock; F17.210 Nicotine dependence, cigarettes, uncomplicated; Z20.822 Contact with and (suspected) exposure to COVID-19; M19.90 Unspecified osteoarthritis, unspecified site; Z91.14 Patient's other noncompliance with medication regimen
CPT/HCPCS: 36415; 70450; 71045; 71046; 71275; 80048; 80053; 81001; 82140; 82803; 83605; 83880; 84484; 85007; 85025; 87040; 87070; 87077; 87186; 87205; 87581; 87632; 87798; 93005; 93306; 94640; 94760; 94761; 96374; 96375; 97162; 97165; 99285; C9803; J0456; J0696; Q9967; U0003; U0005

== ENCOUNTER → 2022-02-16 07:49 | Outpatient (CLI) | payer MEDICARE, MEDICAID, SELFPAY | PROVIDERS: Visit Provider Internal Medicine Pulmonary Disease | DX: J96.01 Acute respiratory failure with hypoxia (principal) | CPT/HCPCS: 94060; 94618; 94726; 94729 ==

== ENCOUNTER → 2022-07-04 13:56 | Outpatient (CLI) | payer MEDICARE, MEDICAID, SELFPAY ==
--- NOTE | 2022-07-04 13:56 | CT_ITS ---
FINAL REPORT CLINICAL HISTORY: lung cancer screening COMPARISON: January 15, 2022 FINDINGS: Low-Dose Chest CT Axial images were obtained from the lung apex to the mid abdomen by computed tomography. Low-dose protocol was utilized. CTDI vol (mGy): 2.90 DLP (mGy-cm): 108.38 There is some mild to moderate mediastinal adenopathy, particularly in the right paratracheal region measuring up to 1.3 cm. This is more evident than on the previous exam. There is no axillary adenopathy. There is no hilar adenopathy. The heart is proper size. A small pericardial effusion measures up to 1.2 cm. Limited images of the upper abdomen are unremarkable. Lung window images demonstrate advanced changes of centrilobular emphysema. There is biapical pleural and parenchymal scarring. Streak artifact arises from a right shoulder prosthesis. There is pleural calcification in the medial right hemithorax. There are some small noncalcified nodules in the posterior right lower lobe seen on image 41 of series 4 measuring up to 4 mm. IMPRESSION: Small noncalcified nodules in the posterior right lower lobe measuring up to 4 mm. Modifier S: Moderate mediastinal adenopathy and new pericardial effusion. Lung RADS category 2S. Recommend 12 month follow-up low-dose chest CT. Reviewed, Interpreted and Dictated by Skyler Mills MD Transcribed by Roselia Starr Authenticated and [facility]
== END ==
PROVIDERS: PCP Physician Assistant; Visit Provider Internal Medicine Pulmonary Disease
DX: Z87.891 Personal history of nicotine dependence (principal); Z12.2 Encounter for screening for malignant neoplasm of respiratory organs
CPT/HCPCS: 71271

== ENCOUNTER → 2022-08-01 12:01 | Outpatient (CLI) | payer MEDICARE, MEDICAID, SELFPAY ==
[2022-08-01 16:27] LABS: Erythrocyte Sedimentation Rate 18 mm/hr (0-30)
[2022-08-01 16:30] LABS: Basophils % 0.6 % (0.1-2.0); Eosinophils # 0.1 K/mm3 (0.0-0.4); Eosinophils % 1.7 % (0.1-12.0); Hematocrit 35.8 % (37.0-47.0); Hemoglobin 11.1 g/dL (12.2-16.2); Lymphocytes # 0.6 K/mm3 (0.7-4.5); Lymphocytes % 11.4 % (10-50); Mean Corpuscular Volume 80.9 fl (81-99); Mean Platelet Volume 9.6 fl (7.4-10.4); Monocytes # 0.4 K/mm3 (0.1-1.0); Monocytes % 7.3 % (1.7-9.3); Neutrophils # 3.9 K/mm3 (1.8-7.8); Neutrophils % 79.1 % (37.0-80.0); Platelet Count 304 K/mm3 (142-424); Red Blood Count 4.43 M/mm3 (4.20-5.40); Red Cell Distribution Width 17.6 % (11.5-17.5); White Blood Count 4.9 K/mm3 (4.8-10.8)
[2022-08-01 16:35] LABS: Chloride 93 mmol/L (98-107)
[2022-08-01 16:36] LABS: Potassium 4.3 mmoL/L (3.5-5.1); Sodium 133 mmol/L (136-145)
[2022-08-01 16:38] LABS: Alanine Aminotransferase 17 U/L (12-78); Albumin Level 3.1 g/dl (3.5-5.0); Alkaline Phosphatase 97 U/L (38-126); Anion Gap 14.3 mEq/L (5-15); Aspartate Amino Transferase 36 U/L (14-36); Blood Urea Nitrogen 7 mg/dl (7-17); Carbon Dioxide 30 mmol/L (22.0-30.0); Estimated Glomerular Filt Rate 85 ml/min (>60); GFR (African American) 102 ML/MIN (>60); Glucose 90 mg/dl (74-100); Total Protein,Serum 6.1 g/dl (6.3-8.2)
[2022-08-01 16:44] LABS: C-Reactive Protein 69.3 mg/L (0-4)
[2022-08-01 16:49] LABS: Bilirubin,Total < 0.1 mg/dl (0.2-1.3)
== END ==
PROVIDERS: PCP Orthopaedic Surgery; Visit Provider Orthopaedic Surgery
DX: R79.9 Abnormal finding of blood chemistry, unspecified (principal); R79.82 Elevated C-reactive protein (CRP)
CPT/HCPCS: 80053; 85025; 85651; 86140

== ENCOUNTER 2024-01-25 17:25 | Emergency (ER) | payer MEDICARE, MEDICAID, SELFPAY ==
[2024-01-25] VITALS (7 sets, daily range): BP systolic 127–174; BP diastolic 70–92; PULSE 85–112; RESP 15–18; TEMP 36.6; O2SAT 88–95; BMI 18.3
--- NOTE | 2024-01-25 17:25 | ECG_ITS ---
APPROVED REPORT Exam: Resting ECG HR:100 bpm ECG Measurements Heart Rate 100 AXES FL 210 P 62 QRSd 82 QRS 47 QT 336 T 87 QTc 393 Conclusion SINUS TACHYCARDIA WITH FIRST DEGREE AV BLOCK WITH OCCASIONAL SUPRAVENTRICULAR PREMATURE COMPLEXES Electronically signed by : RYAN MORRIS, 01/25/2024 23:56:52
--- NOTE | 2024-01-25 17:32 | XR_ITS ---
PROCEDURE INFORMATION: Exam: XR Chest Exam date and time: 01/25/2024 5:33 PM Age: 63 years old Clinical indication: Pain; Chest pressure; Additional info: Chest pain TECHNIQUE: Imaging protocol: Radiologic exam of the chest. Views: 1 view. COMPARISON: CT LUNG SCREENING 07/04/2022 2:02 PM FINDINGS: Lungs: Stable mild diffuse pulmonary interstitial prominence. No emmanuel pulmonary consolidation. Pleural spaces: Unremarkable. No pleural effusion. No pneumothorax. Heart/Mediastinum: Unremarkable. No cardiomegaly. Bones/joints: Right shoulder prosthesis in place. Orthopedic hardware noted in the lumbar spine. IMPRESSION: No acute disease
[2024-01-25 17:41] LABS: Basophils # 0.1 K/mm3 (0-0.2); Chloride 98 mmol/L (98-107); Eosinophils # 0.1 K/mm3 (0.0-0.4); Eosinophils % 1.7 % (0.1-12.0); Hemoglobin 13.6 g/dL (12.2-16.2); Lymphocytes # 1.9 K/mm3 (0.7-4.5); Lymphocytes % 22.6 % (10-50); Mean Corpuscular Hemoglobin 28.3 pg (27.0-31.2); Mean Corpuscular Volume 91.1 fl (81-99); Mean Platelet Volume 8.4 fl (7.4-10.4); Monocytes # 0.6 K/mm3 (0.1-1.0); Neutrophils # 5.6 K/mm3 (1.8-7.8); Neutrophils % 67.7 % (37.0-80.0); Platelet Count 201 K/mm3 (142-424); Potassium 4.1 mmoL/L (3.5-5.1); Red Blood Count 4.82 M/mm3 (4.20-5.40); Red Cell Distribution Width 15.7 % (11.5-17.5); Sodium 132 mmol/L (136-145); White Blood Count 8.3 K/mm3 (4.8-10.8)
[2024-01-25 17:44] LABS: Anion Gap 8.1 mEq/L (5-15); Blood Urea Nitrogen 7 mg/dl (7-17); Carbon Dioxide 30 mmol/L (22.0-30.0); Creatinine Clearance Estimated 45 mL/min (50-200); Estimated Glomerular Filt Rate 101 ml/min (>60); GFR (African American) 122 ML/MIN (>60); Glucose 70 mg/dl (74-100)
[2024-01-25 17:54] LABS: NT Pro Brain Natriuretic Pep. 2150 pg/mL (0-125)
[2024-01-25] MEDS: ASPIRIN 81MG CHEWABLE TABLET 324 MG PO (18:02)
[2024-01-25 18:11] LABS: Troponin I < 0.01 ng/ml (0.00-0.034)
--- NOTE | 2024-01-25 18:21 | ED_ITS ---
Discharge Plan Disposition Patient Disposition: Home, Self-Care Chief Complaint: Chest Pain Prescriptions Prescriptions: No Action furosemide 20 mg tablet 20 mg PO DAILY Qty: 30 1RF albuterol sulfate 90 mcg/actuation HFA aerosol inhaler 2 inh INHALATION Q6H PRN (Reason: shortness of breath or wheezing) 90 Days Qty: 8.5 3RF cjibvyqblsu-vkrnunwvw-uezausaz 100-62.5-25 mcg blister with device 1 inh INHALATION DAILY 90 Days Qty: 1 3RF prednisone 10 mg tablet 10 mg PO .COMPLEX Qty: 60 0RF Rx Instructions: 20mg (2 Tabs) PO BID x5days; 10 mg (1 Tab) PO BID x5days; 5mg (1/2 Tab) PO BID x5days potassium chloride 10 MEQ capsule, extended release 20 meq PO DAILY gabapentin 400 MG capsule 400 mg PO 5XDAY lisinopril 5 MG tablet 5 mg PO DAILY linaclotide 145 MCG capsule 145 mcg PO DAILY levofloxacin 750 MG tablet 750 mg PO DAILY 2 Days Qty: 2 0RF Activity Restrictions/Add. Instructions Additional Instructions/Restrictions: Follow-up with field technical support consultant to get sooner appointment scheduled. If you have any other concerning signs or symptoms, return to the emergency department for further evaluation. Clinical Impressions Clinical Impression: Chest pain Discharge ED Provider: Merlin Espinosa General Chief Complaint: Chest Pain Stated Complaint: chest pain Time Seen by Provider: 01/25/24 17:26 Mode of Arrival: Ambulatory Source of Information: Patient Limitations: No Limitations Description of Symptoms (Recalled from ER Triage Doc. by RN): Patient presents to ER with complaints of intermittent chest pain that started yesterday. Patient states the pain is sharp and is in left and right chest. Patient reports no current pain. History of Present Illness HPI narrative: 63-year-old female history of hypertension, hyperlipidemia, COPD still currently smoking, CHF presenting with chest pain. Patient states that she has had new, sharp chest pains over the past couple of days. Yesterday, started while she was walking, had left-sided chest pain that did not radiate, moderate in intensity, self abated. Today, she had 2 episodes, one was just prior to arrival. Not associated with any other symptoms including shortness of breath, diaphoresis, nausea, vomiting, or any other concerns. Related Data Home Medications Medication Instructions Recorded Confirmed gabapentin 400 mg capsule 400 mg PO 5XDAY Pain 01/16/22 06/26/22 linaclotide 145 mcg capsule 145 mcg PO DAILY constipation 01/16/22 06/26/22 lisinopril 5 mg tablet 5 mg PO DAILY Hypertension 01/16/22 06/26/22 potassium chloride 10 mEq 20 meq PO DAILY potassium 01/16/22 06/26/22 capsule,extended release replacement Previous Rx's Medication Instructions Recorded levofloxacin 750 mg tablet 750 mg PO DAILY 2 days #2 tabs 01/18/22 prednisone 10 mg tablet 10 mg PO .COMPLEX #60 tabs 01/18/22 furosemide 20 mg tablet 20 mg PO DAILY Fluid #30 tabs 01/25/22 albuterol sulfate 90 mcg/actuation 2 inh inhalation Q6H PRN shortness 02/16/22 aerosol inhaler of breath or wheezing 90 days #8.5 grams fluticasone fur. 100 mcg-umeclid 1 inh inhalation DAILY 90 days #1 06/26/22 62.5 mcg-vilant 25 mcg ea inhalat.powder Allergies Allergy/AdvReac Type Severity Reaction Status Date / Time No Known Allergies Allergy Verified 06/26/22 16:13 [facility] Disclaimer: The information contained in this section may have been updated after the patient was seen, as this information can be updated by other users. Medical History (Updated 01/25/24 @ 20:39 by Merlin Espinosa MD) Encounter for screening for malignant neoplasm of lung in current smoker with 30 pack year history or greater Pleural thickening Lung nodule Tobacco abuse disorder Tobacco abuse counseling COPD (chronic obstructive pulmonary disease) Smoking greater than 30 pack years Dyspnea on exertion Surgical History (Updated 07/06/22 @ 09:41 by Nandini Nix RT) Previous back surgery Social History (Updated 07/06/22 @ 13:49 by Melvin Aponte MD) Smoking Status: Current every day smoker tobacco type: cigarettes packs per day: 3 alcohol intake: never current occupational status: disabled Travel in the last 8 weeks: None household members: significant other housing: house caffeine: Yes ROS Obtained: Yes All systems reviewed & no additional complaints except as documented Physical Exam General General appearance: alert Neck Neck exam: Present trachea midline Chest Chest inspection: Present normal inspection and symmetric chest wall rise Respiratory Respiratory exam: Present normal lung sounds bilaterally; Absent respiratory distress, wheezes, stridor, accessory muscle use or prolonged expiratory phase Cardiovascular Cardiovascular exam: Present regular rate and normal rhythm Extremities Exam Extremities exam: Absent edema Neurological Exam Neurological exam: Present alert, oriented X3 and CN II-XII intact Skin Skin exam: Present warm and dry; Absent cyanosis, diaphoresis or pallor HEART Score HEART Score HEART Score assessment performed?: Yes HEART Score: 4 Critical Care Critical Care Time Critical Care Time: No Medical Decision Making Medical Records Medical records reviewed: Yes I reviewed the patient's medical records. Kayden Inquiry Pt receiving controlled substance: No Kayden was queried for this patient: No Vital Signs Vital Signs: 01/25/24 17:25 01/25/24 17:30 01/25/24 17:34 Temperature 97.9 F Temperature Source Oral Pulse Rate 85 100 H Pulse Rate [Right] 112 H Respiratory Rate 18 18 Blood Pressure 167/88 H Blood Pressure [Right Arm] 174/92 H Blood Pressure Mean [Right Arm] 119 Blood Pressure Source [Right Arm] Automatic Cuff 02 Sat by Pulse Oximetry 95 95 Oxygen Delivery Method Room Air Room Air 01/25/24 18:00 01/25/24 18:30 Temperature Temperature Source Pulse Rate 86 90 Pulse Rate [Right] Respiratory Rate 16 15 Blood Pressure 141/70 H 153/78 H Blood Pressure [Right Arm] Blood Pressure Mean [Right Arm] Blood Pressure Source [Right Arm] 02 Sat by Pulse Oximetry 92 L 90 L Oxygen Delivery Method Lab Data Labs: Lab Results 01/25/24 17:25: WBC 8.3, RBC 4.82, Hgb 13.6, Hct 44.0, MCV 91.1, MCH 28.3, MCHC 31.0 L, RDW 15.7, Plt Count 201, MPV 8.4, Neut % (Auto) 67.7, Lymph % (Auto) 22.6, [place] % (Auto) 7.0, Eos % (Auto) 1.7, Baso % (Auto) 1.0, Neut # (Auto) 5.6, Lymph # (Auto) 1.9, [place] # (Auto) 0.6, Eos # (Auto) 0.1, Baso # (Auto) 0.1, D- Dimer 0.44, Sodium 132 L, Potassium 4.1, Chloride 98, Carbon Dioxide 30, Anion Gap 8.1, BUN 7, Creatinine 0.60, Estimated Creat Clear 45, Estimated GFR 101, Est GFR ( Amer) 122, Glucose 70 L, Calcium 9.0, Troponin I < 0.01, N T-Pro-B Natriuret Pep 2150 H 01/25/24 19:48: Troponin I < 0.01 01/25/24 17:25 01/25/24 17:25 Response Orders (Tests/Meds): ED MEDICATIONS Discontinued Medications Generic Name Dose Route Start Last Admin Trade Name Joyce PRN Reason Stop Dose Admin Aspirin 324 mg 01/25/24 17:55 01/25/24 18:02 Aspirin 81mg Chewable Tablet PO 01/25/24 17:56 324 mg ONCE ONE Administration ORDERS Category Date Time Status XR chest portable Stat Exams 01/25/24 17:32 Completed BNP [Brain Natriuretic Peptide] Stat Lab 01/25/24 17:25 Completed Basic Metabolic Panel Stat Lab 01/25/24 17:25 Completed Complete Blood Count Auto Diff Stat Lab 01/25/24 17:25 Completed D-Dimer Stat Lab 01/25/24 17:25 Completed Troponin I Q3H Lab 01/25/24 19:48 Completed Troponin I Q3H Lab 01/25/24 23:45 Ordered Troponin I Stat Lab 01/25/24 17:25 Completed MDM Narrative Medical Decision Narrative: 63-year-old female history of hypertension, hyperlipidemia, COPD still currently smoking, CHF presenting with chest pain. Patient states that she has had new, sharp chest pains over the past couple of days. Yesterday, started while she was walking, had left-sided chest pain that did not radiate, moderate in intensity, self abated. Today, she had 2 episodes, one was just prior to arrival. Not associated with any other symptoms including shortness of breath, diaphoresis, nausea, vomiting, or any other concerns. History was obtained via conversation with patient. On arrival, patient hemodynamically stable, alert, oriented x4, appropriate, GCS 15, moving all extremities spontaneously, pupils equal and reactive to light. Full physical exam performed and significant for well-appearing woman in no acute distress. Lungs are clear to auscultation bilaterally, cardiac exam within normal limits. Pulses equal and symmetric. Neurologically intact. Differential includes microvascular coronary artery disease, CHF, ACS, PR, coronary artery dissection, pneumothorax, PE, dissection, pericarditis, myocarditis, pneumothorax, aortic aneurysm, pneumonia, bronchitis, among others. Patient was given 324 mg aspirin for symptomatic management and correction of underlying abnormalities. Workup independently interpreted and significant for nonactionable CBC or chemistry. BNP nonactionable. Initial troponin negative, chest x-ray without acute cardiopulmonary airspace disease.. See radiology read for full review of final results. Independent interpretation of EKG shows sinus tachycardia [address] or T wave changes concerning for acute ischemia. DE, QRS, QT intervals within normal limits. [place] normal. Patient placed on continuous cardiac monitoring and continuous pulse ox with initial blood pressure 174/92, heart rate 112, saturation 95% on room air. Heart score 4. Patient was placed in observation beginning at 6 PM in order to rule out evolving PR with delta troponins and determine need for admission versus home-going. The patient was provided serial exams, monitoring, labs while awaiting results. Independent interpretation of results demonstrated negative delta troponin. On reevaluation, patient ready go feeling much better. At this time, I feel patient is appropriate for discharge. Total observation time 3 hours. Patient states that she does not have follow-up with cardiology until May, it is recommended that she call and schedule follow-up for much sooner given concern for continued smoking and possible stable angina. She voiced her understanding. Return precautions given.
[2024-01-25 18:27] LABS: D-Dimer 0.44 ug/mL (0.0-0.5)
[2024-01-25 20:23] LABS: Troponin I < 0.01 ng/ml (0.00-0.034)
== END 2024-01-25 20:53 | disposition home or self-care (01) ==
PROVIDERS: Emergency Provider Emergency Medicine
DX: R07.9 Chest pain, unspecified (principal); J44.9 Chronic obstructive pulmonary disease, unspecified; I11.0 Hypertensive heart disease with heart failure; I50.9 Heart failure, unspecified; E78.5 Hyperlipidemia, unspecified; F17.210 Nicotine dependence, cigarettes, uncomplicated
CPT/HCPCS: 71045; 80048; 83880; 84484; 85025; 85378; 93005; 99285

== ENCOUNTER 2024-03-15 16:26 | Emergency (ER) | payer MEDICARE, SELFPAY ==
[2024-03-15 16:27] VITALS: BP 150/92; PULSE 100; RESP 18; TEMP 37.2; O2SAT 95; BMI 20.5
[2024-03-15 16:32] VITALS: BP 150/92; PULSE 102; RESP 18; O2SAT 94
--- NOTE | 2024-03-15 16:39 | PC.NURSE ---
DR MORRIS AT BEDSIDE
[2024-03-15 17:00] VITALS: BP 153/87; PULSE 99; RESP 18; O2SAT 92
--- NOTE | 2024-03-15 17:01 | XR_ITS ---
PROCEDURE INFORMATION: Exam: XR Lumbosacral Spine Exam date and time: 03/15/2024 5:30 PM Age: 63 years old Clinical indication: Low back pain; Prior surgery; Surgery date: 6+ months; Surgery type: L spine; Additional info: Hardware, acute pain L paraspinal TECHNIQUE: Imaging protocol: Radiologic exam of the lumbosacral spine. Views: 2 or 3 views. COMPARISON: No relevant prior studies available. FINDINGS: Bones/joints: L2-S1 posterior lumbar and bilateral sacroiliac joint fusion. Grossly intact surgical hardware. No acute fracture. Mild levoconvex curvature. Multilevel degenerative changes. Chronic appearing severe L1-L2 endplate erosive changes. Soft tissues: Unremarkable. IMPRESSION: 1. Postsurgical changes of lumbosacral and sacroiliac joint effusion without identifiable acute hardware complication. No acute osseous findings. 2. Multilevel degenerative changes. Chronic appearing severe L1-L2 endplate erosive changes.
[2024-03-15] MEDS: LIDOCAINE 5% TRANSDERMAL PATCH 1 EACH TP (17:14)
[2024-03-15] MEDS: predniSONE 20MG TAB 40 MG PO (17:15)
--- NOTE | 2024-03-15 17:15 | ED_ITS ---
Discharge Plan Disposition Patient Disposition: Home, Self-Care Prescriptions Prescriptions: New prednisone 20 mg tablet 40 mg PO DAILY 5 Days Qty: 10 0RF lidocaine 5 % adhesive patch,medicated 1 patch topical DAILY Qty: 30 0RF Rx Instructions: leave on most painful area for up to 12 hrs No Action furosemide 20 mg tablet 20 mg PO DAILY Qty: 30 1RF albuterol sulfate 90 mcg/actuation HFA aerosol inhaler 2 inh INHALATION Q6H PRN (Reason: shortness of breath or wheezing) 90 Days Qty: 8.5 3RF hqnofmoclyr-kuevcgenc-nboarkci 100-62.5-25 mcg blister with device 1 inh INHALATION DAILY 90 Days Qty: 1 3RF prednisone 10 mg tablet 10 mg PO .COMPLEX Qty: 60 0RF Rx Instructions: 20mg (2 Tabs) PO BID x5days; 10 mg (1 Tab) PO BID x5days; 5mg (1/2 Tab) PO BID x5days potassium chloride 10 MEQ capsule, extended release 20 meq PO DAILY gabapentin 400 MG capsule 400 mg PO 5XDAY lisinopril 5 MG tablet 5 mg PO DAILY linaclotide 145 MCG capsule 145 mcg PO DAILY levofloxacin 750 MG tablet 750 mg PO DAILY 2 Days Qty: 2 0RF Referrals Follow up/Referrals: Debora Mckeon [Primary Care Provider] - See instructions Activity Restrictions/Add. Instructions Additional Instructions/Restrictions: Call your family doctor to establish care for this visit to the emergency department and schedule follow-up within 48 hours to ensure improvement. If you have any worsening of your condition or any other concerning signs or symptoms, return to the emergency department or your primary care doctor for further evaluation. Clinical Impressions Clinical Impression: Acute lumbar radiculopathy Instructions Patient Instructions: DI for Low Back Pain Discharge ED Provider: Merlin Espinosa General Adult HPI General Chief complaint: Back Pain/Injury Stated complaint: hip/back pain, no accident Time Seen by Provider: 03/15/24 16:28 Mode of Arrival: Ambulatory Limitations: No Limitations Description of Symptoms (Recalled from ER Triage Doc. by RN): PT C/O CHRONIC LOW BACK PAIN, WORSE FOR ABOUT 3-4 WEEKS, PAIN RADIATES TO LEFT HIP. NO INJURY. HX OF BACK SURGERY History of Present Illness HPI narrative: Please note that above description of symptoms, in this electronic medical record under categorization of recalled from ER triage doctor by RN are reflective of an initial nursing assessment, however, is not reflective of my full history and physical exam that was personally taken and clarified. Consequentially, this preceding description of symptoms, which may include the patient's categorized chief complaint in the EMR, do not reflect my personal clinical impression, and the ultimate description of history of present illness and patient stated complaints should be deferred to this section of the note. Unless stated otherwise or congruent with this section of the note, additional signs, symptoms, or incongruence should be interpreted as inaccurate with my clinical impression. Related Data Home Medications Medication Instructions Recorded Confirmed gabapentin 400 mg capsule 400 mg PO 5XDAY Pain 01/16/22 06/26/22 linaclotide 145 mcg capsule 145 mcg PO DAILY constipation 01/16/22 06/26/22 lisinopril 5 mg tablet 5 mg PO DAILY Hypertension 01/16/22 06/26/22 potassium chloride 10 mEq 20 meq PO DAILY potassium 01/16/22 06/26/22 capsule,extended release replacement Previous Rx's Medication Instructions Recorded levofloxacin 750 mg tablet 750 mg PO DAILY 2 days #2 tabs 01/18/22 prednisone 10 mg tablet 10 mg PO .COMPLEX #60 tabs 01/18/22 furosemide 20 mg tablet 20 mg PO DAILY Fluid #30 tabs 01/25/22 albuterol sulfate 90 mcg/actuation 2 inh inhalation Q6H PRN shortness 02/16/22 aerosol inhaler of breath or wheezing 90 days #8.5 grams fluticasone fur. 100 mcg-umeclid 1 inh inhalation DAILY 90 days #1 06/26/22 62.5 mcg-vilant 25 mcg ea inhalat.powder lidocaine 5 % topical patch 1 patch topical DAILY #30 ea 03/15/24 prednisone 20 mg tablet 40 mg (2 x 20 mg) PO DAILY 5 days 03/15/24 #10 tabs Allergies Allergy/AdvReac Type Severity Reaction Status Date / Time No Known Allergies Allergy Verified 06/26/22 16:13 [facility] Disclaimer: The information contained in this section may have been updated after the patient was seen, as this information can be updated by other users. Medical History (Updated 03/15/24 @ 18:31 by Merlin Espinosa MD) Encounter for screening for malignant neoplasm of lung in current smoker with 30 pack year history or greater Pleural thickening Lung nodule Tobacco abuse disorder Tobacco abuse counseling COPD (chronic obstructive pulmonary disease) Smoking greater than 30 pack years Dyspnea on exertion Surgical History (Updated 07/06/22 @ 09:41 by Nandini Nix RT) Previous back surgery Social History (Updated 07/06/22 @ 13:49 by Melvin Aponte MD) Smoking Status: Current every day smoker tobacco type: cigarettes packs per day: 3 alcohol intake: never current occupational status: disabled Travel in the last 8 weeks: None household members: significant other housing: house caffeine: Yes ROS Obtained: Yes All systems reviewed & no additional complaints except as documented Physical Exam General General appearance: alert and in no apparent distress Head Head exam: atraumatic and normocephalic Eye Eye exam: Present normal appearance, PERRL and EOMI ENT ENT exam: Present mucous membranes moist Neck Neck exam: Present normal inspection, full ROM and trachea midline Respiratory Respiratory exam: Absent respiratory distress, wheezes, stridor, accessory mu scle use or prolonged expiratory phase Cardiovascular Cardiovascular exam: Present normal rhythm Abdominal Exam Abdominal exam: Present soft; Absent distention, tenderness, guarding, rebound or rigidity Extremities Exam Extremities exam: Absent edema Back Exam Back exam: Present tenderness (Left side paraspinal, no outward signs of abnormality) Neurological Exam Neurological exam: Present alert, oriented X3, CN II-XII intact and normal gait; Absent motor sensory deficit Skin Skin exam: Present warm and dry; Absent diaphoresis or erythema Medical Decision Making Medical Records Medical records reviewed: Yes I reviewed the patient's medical records. Kayden Inquiry Pt receiving controlled substance: No Kayden was queried for this patient: No Vital Signs: 03/15/24 16:27 03/15/24 16:32 03/15/24 17:00 Temperature 99.0 F Temperature Source Oral Pulse Rate 102 H 99 H Pulse Rate [Radial] 100 H Respiratory Rate 18 18 18 Blood Pressure 150/92 H 153/87 H Blood Pressure [Right Arm] 150/92 H Blood Pressure Mean 104 109 Blood Pressure Mean [Right Arm] 111 Blood Pressure Source [Right Arm] Automatic Cuff Blood Pressure Position [Right Arm] Sitting 02 Sat by Pulse Oximetry 95 94 L 92 L Oxygen Delivery Method Room Air Orders (Tests/Meds): ED MEDICATIONS Discontinued Medications Generic Name Dose Route Start Last Admin Trade Name Freq PRN Reason Stop Dose Admin Lidocaine 1 each 03/15/24 16:43 03/15/24 17:14 Lidocaine 5% Transdermal Patch TP 03/15/24 16:44 1 each ONCE ONE Administration Prednisone 40 mg 03/15/24 16:43 03/15/24 17:15 Prednisone 20mg Tab PO 03/15/24 16:44 40 mg ONCE ONE Administration ORDERS Category Date Time Status Lumbar spine XR 2-3 views [XR lumbar spine 2-3V] Stat Exams 03/15/24 17:01 Taken Medical Decision Narrative: Is a 63-year-old female with history of chronic back pain, RA, lumbar spinal fixation presenting with left flank/buttock pain. Has been getting worse over the last couple of days, she has been putting her arthritis cream on it. This seems to help a little bit. Today, severe, stabbing, point tenderness just above SI joint on the left. No neurologic deficits in the left leg, no bowel or bladder dysfunction, otherwise okay. History was obtained via conversation with patient. On arrival, patient hemodynamically stable, alert, oriented x4, appropriate, GCS 15, moving all extremities spontaneously, pupils equal and reactive to light. Neurologically intact. full physical exam performed and significant for midline lumbar spinal scar appears normal limits. She does have paraspinal tenderness on the left without outward signs of injury. Differential includes radiculopathy, neuropathy, hardware failure, among others. Patient was given lidocaine patch and prednisone for symptomatic management and correction of underlying abnormalities. Workup independently interpreted and significant for nonactionable flexion extension AP and lateral films of the lumbar spine with intact hardware. See radiology read for full review of final results. On reevaluation, patient resting comfortably ready to go. Given patient presentation, workup, history, this most likely represents sciatica. Because patient at baseline without signs or symptoms of clinical decompensation, deemed appropriate for discharge. Results were relayed to patient who voiced understanding and were agreeable to outpatient management and follow up. I discussed my clinical impression with patient and answered all ques tions. At this time, the evidence for any other entities in the differential is insufficient to warrant any further testing or ED observation. This was explained as well. Advisory was given that persistent or worsening symptoms require further evaluation. I confirmed the understanding of this discussion. Critical Care Critical Care Time Critical Care Time: No
--- NOTE | 2024-03-15 17:37 | PC.NURSE ---
PT TO XR
--- NOTE | 2024-03-15 18:29 | PC.NURSE ---
DR MORRIS AT BEDSIDE TO UPDATE PT AND FAMILY
[2024-03-15 18:35] VITALS: BP 153/87; PULSE 99; RESP 18; TEMP 37.2; O2SAT 92
== END 2024-03-15 18:35 | disposition home or self-care (01) ==
PROVIDERS: Emergency Provider Emergency Medicine; PCP Nurse Practitioner Family
DX: M54.16 Radiculopathy, lumbar region (principal); M54.59 Other low back pain; M25.552 Pain in left hip
CPT/HCPCS: 72100; 99283

== ENCOUNTER 2024-05-07 08:20 | Outpatient (CLI) | payer MEDICARE, SELFPAY ==
--- NOTE | 2024-05-07 08:39 | CT_ITS ---
FINAL REPORT CLINICAL HISTORY: LOW BACK PAIN FINDINGS: CT LUMBAR SPINE TECHNIQUE: Thin section axial CT with sagittal and coronal reconstructions FINDINGS: No acute fracture is evident. Extensive postoperative changes spinal fixation are noted with hardware extending from L2-S2. The L2 pedicle screws do extend into the L1-2 disc space. There is sclerosis and mild endplate irregularity particularly right side. There is mild levoscoliosis. Lateral subluxation at L1-2 measures up to 10 mm. Postoperative changes of laminectomy are present. Thecal sac is obscured by postoperative change. Neural foraminal narrowing is noted L1-2 and L2-3. IMPRESSION: 1. Postoperative changes spinal fixation L2-S2 2. L2 hardware screws do extend into the L1-2 disc space particular right side. There is endplate sclerosis and remodeling. Findings could indicate discitis or chronic postoperative and degenerative change. 3. No bony canal stenosis. However there is neural foraminal narrowing upper lumbar spine This study was performed using automated techniques to achieve radiation exposure as low as reasonably achievable Authenticated and [facility]
[2024-05-07 08:49] LABS: Blood Urea Nitrogen 7 mg/dl (7-17); Estimated Glomerular Filt Rate 84 ml/min (>60); GFR (African American) 102 ML/MIN (>60)
--- NOTE | 2024-05-07 09:01 | MR_ITS ---
FINAL REPORT TECHNIQUE: Multiplanar MR, without and with gadolinium enhancement CLINICAL HISTORY: HISTORY OF ARTHRODESIS concern for broken hardware COMPARISON: None FINDINGS: There is endplate irregularity with sclerosis at L1-2. There is also fluid in the disc space with endplate enhancement. The L2 pedicle screws extend into the L1-2 disc space, most pronounced on the right. Discitis is not excluded, although changes could be attributed to hardware erosion into the disc space. Spinal fixation rods and pedicle screws are noted extending from L2-S2. L1-2: Hardware artifact mildly obscures the spinal canal. No obvious canal stenosis. Moderate bilateral neuroforaminal narrowing. L2-3: Mild annular disc bulge. L3-4: Status post laminectomy without canal stenosis. L4-5: Mild endplate spurring. No canal stenosis. L5-S1: No evidence of canal stenosis. IMPRESSION: Abnormal appearance of the disc space at L1-2. Discitis is not excluded although this could be related to L2 pedicle screws extending into the disc space. No evidence of central canal stenosis. Reviewed, Interpreted and Dictated by Sunni Quesada MD Transcribed by Kelsey Bejarano Authenticated and [facility]
== END 2024-05-07 23:59 | disposition home or self-care (01) ==
LOC: RAD 08:21
PROVIDERS: Visit Provider Physician Assistant
DX: M54.50 Low back pain, unspecified (principal); Z98.1 Arthrodesis status
CPT/HCPCS: 36415; 72131; 72158; 82565; 84520; A9576

== ENCOUNTER 2024-07-29 16:00 | Emergency (ER) | payer MEDICARE, SELFPAY ==
--- NOTE | 2024-07-29 16:41 | ED_ITS ---
<Statement entered by Linda Carmona DO - 07/29/24 18:19> I was consulted by the SENTHIL, and we discussed the complexity of the problems being addressed. I approved the treatment and management plan for this patient's care in the emergency department, thus performing a substantive portion of the medical decision making. Linda Carmona DO Discharge Plan Disposition Patient Disposition: Home, Self-Care Condition: Good Chief Complaint: Back Pain/Injury Prescriptions Prescriptions: No Action furosemide 20 mg tablet 20 mg PO DAILY Qty: 30 1RF albuterol sulfate 90 mcg/actuation HFA aerosol inhaler 2 inh INHALATION Q6H PRN (Reason: shortness of breath or wheezing) 90 Days Qty: 8.5 3RF ikjxdfphebz-qpgatpkrn-sblexlgp 100-62.5-25 mcg blister with device 1 inh INHALATION DAILY 90 Days Qty: 1 3RF prednisone 10 mg tablet 10 mg PO .COMPLEX Qty: 60 0RF Rx Instructions: 20mg (2 Tabs) PO BID x5days; 10 mg (1 Tab) PO BID x5days; 5mg (1/2 Tab) PO BID x5days potassium chloride 10 MEQ capsule, extended release 20 meq PO DAILY gabapentin 400 MG capsule 400 mg PO 5XDAY lisinopril 5 MG tablet 5 mg PO DAILY linaclotide 145 MCG capsule 145 mcg PO DAILY levofloxacin 750 MG tablet 750 mg PO DAILY 2 Days Qty: 2 0RF prednisone 20 mg tablet 40 mg PO DAILY 5 Days Qty: 10 0RF lidocaine 5 % adhesive patch,medicated 1 patch topical DAILY Qty: 30 0RF Rx Instructions: leave on most painful area for up to 12 hrs Referrals Follow up/Referrals: Debora Mckeon [Primary Care Provider] - See instructions Activity Restrictions/Add. Instructions Additional Instructions/Restrictions: Follow-up with PCP/neurosurgeon in [place] as directed. Continue to follow postoperative restrictions, utilize Tylenol and muscle relaxers for pain. Clinical Impressions Clinical Impression: Back pain, thoracic Instructions Patient Instructions: DI for Low Back Pain Print Language Print Language: Icelandic Discharge ED Provider: Linda Carmona General Adult HPI General Chief complaint: Back Pain/Injury Stated complaint: back [id number] back pain Time Seen by Provider: 07/29/24 16:22 Mode of Arrival: Ambulatory Source of Information: Patient History of Present Illness HPI narrative: 64-year-old female presents emergency department with a mid thoracic back injury. Patient states that yesterday she was outside walking the dog, when the dog knocked her over, she landed on her knees, she denies striking the head denies any anticoagulant use, denies even landing on her back. But does admit thoracic back pain outside of her normal postoperative back pain since yesterday. Patient is status post what sounds like a large multilevel thoracolumbar fusion formed at [facility] on July 09. He has followed her postoperative striction's thus far, and denies any fever chills chest pain shortness of breath, abdominal pain, nausea, vomiting, or any other acute symptomatology. He denies any other upper or lower extremity weakness, saddle anesthesia, urinary bladder or bowel dysfunction. Medical history consistent with hypertension, IBS, hyperlipidemia, COPD, she is current everyday smoker, osteoarthritis, she denies any alcohol or drug use. Triage vitals grossly unremarkable. Onset (ago): day(s) Related Data Home Medications ?Medication ?Instructions ?Recorded ?Confirmed gabapentin 400 mg capsule 400 mg PO 5XDAY Pain 01/16/22 06/26/22 linaclotide 145 mcg capsule 145 mcg PO DAILY constipation 01/16/22 06/26/22 lisinopril 5 mg tablet 5 mg PO DAILY Hypertension 01/16/22 06/26/22 potassium chloride 10 mEq 20 meq PO DAILY potassium 01/16/22 06/26/22 capsule,extended release replacement Previous Rx's ?Medication ?Instructions ?Recorded levofloxacin 750 mg tablet 750 mg PO DAILY 2 days #2 tabs 01/18/22 prednisone 10 mg tablet 10 mg PO .COMPLEX #60 tabs 01/18/22 furosemide 20 mg tablet 20 mg PO DAILY Fluid #30 tabs 01/25/22 albuterol sulfate 90 mcg/actuation 2 inh inhalation Q6H PRN shortness 02/16/22 aerosol inhaler of breath or wheezing 90 days #8.5 grams fluticasone fur. 100 mcg-umeclid 1 inh inhalation DAILY 90 days #1 06/26/22 62.5 mcg-vilant 25 mcg ea inhalat.powder lidocaine 5 % topical patch 1 patch topical DAILY #30 ea 03/15/24 prednisone 20 mg tablet 40 mg (2 x 20 mg) PO DAILY 5 days 03/15/24 #10 tabs Allergies Allergy/AdvReac Type Severity Reaction Status Date / Time No Known Allergies Allergy Verified 06/26/22 16:13 [facility] Disclaimer: The information contained in this section may have been updated after the patient was seen, as this information can be updated by other users. Medical History (Updated 07/29/24 @ 18:08 by ANY Agarwal) Encounter for screening for malignant neoplasm of lung in current smoker with 30 pack year history or greater Pleural thickening Lung nodule Tobacco abuse disorder Tobacco abuse counseling COPD (chronic obstructive pulmonary disease) Smoking greater than 30 pack years Dyspnea on exertion Surgical History (Updated 07/06/22 @ 09:41 by RT Ketty) Previous back surgery Social History (Updated 07/06/22 @ 13:49 by Melvin Aponte MD) Smoking Status: Current every day smoker tobacco type: cigarettes packs per day: 3 alcohol intake: never current occupational status: disabled Travel in the last 8 weeks: None household members: significant other housing: house caffeine: Yes ROS Obtained: Yes All systems reviewed & no additional complaints except as documented Physical Exam General General appearance: alert and in no apparent distress Head Head exam: atraumatic and normocephalic Eye Eye exam: Present PERRL and EOMI ENT ENT exam: Present mucous membranes moist Neck Neck exam: Present normal inspection Chest Chest inspection: Present normal inspection and symmetric chest wall rise Respiratory Respiratory exam: Present normal lung sounds bilaterally; Absent respiratory distress Cardiovascular Cardiovascular exam: Present regular rate and normal rhythm Abdominal Exam Abdominal exam: Present soft; Absent tenderness Extremities Exam Extremities exam: Present normal inspection Back Exam Back exam: Present normal inspection, full ROM, tenderness and paraspinal tenderness; Absent straight leg raise (R) or straight leg raise (L) Neurological Exam Neurological exam: Present alert, oriented X3 and other (Patient has 5 out of 5 strength in the bilateral lower and upper extremities, negative straight leg test bilaterally, extremities to command, no sensation deficit, negative Juan Jose sign bilaterally) Psychiatric Psychiatric exam: Present normal affect Skin Skin exam: Present warm, dry and other (Patient has large thoracolumbar incision looks to be well-healed, well epithelialized, there is no evidence of any wound dehiscence, no erythema or drainage.) Medical Decision Making Medical Records Screening: Per USPSTF and CDC recommendations, given the prevalence of disease in our region, it is our hospital?s policy to screen for HIV and viral Hepatitis for all patients aged 18 and over and those with ongoing risk factors. [place]den Inquiry Pt receiving controlled substance: Yes [place] was queried for this patient: Yes Risks and benefits of using a controlled substance: were discussed with pt by me Vital Signs: 07/29/24 16:54 Pulse Rate [Right Radial] 95 H Respiratory Rate 20 Blood Pressure [Right Arm] 106/61 L Blood Pressure Mean [Right Arm] 76 Blood Pressure Source [Right Arm] Automatic Cuff Blood Pressure Position [Right Arm] Sitting 02 Sat by Pulse Oximetry 97 Oxygen Delivery Method Room Air Orders (Tests/Meds): ED MEDICATIONS Discontinued Medications Generic Name Dose Route Start Last Admin Trade Name Freq PRN Reason Stop Dose Admin Hydrocodone Bitart/Acetaminophen 1 tab 07/29/24 16:40 07/29/24 16:59 Hydrocodone/Apap 5/325 Mg Tablet PO 07/29/24 16:41 1 tab ONCE ONE Administration ORDERS Category Date Time Status CT lumbar spine wo con Stat Cat Scan 07/29/24 16:[address] thoracic spine wo con Stat Cat Scan 07/29/24 16:48 Completed Medical Decision Narrative: 64-year-old female presents emergency department with midthoracic back pain, after fall yesterday, differential diagnose include but not limited to, hardware failure, acute lumbar sacral strain, acute thoracic myofascial sprain, thoracic spine fracture. Discussed this patient's case with the attending physician Dr. Carmona I will obtain CT without Contrast of the thoracic and lumbar spine to assess for any hardware failure, I will give 5 mg p.o. [place] for pain. I reviewed the patient's CT of the thoracic and without contrast on the corresponding radiologic report, there is no CT evidence of significant thoracic spine abnormality, by pedicular fusion hardware being at the T11 level and extending off the bottom of the study, the T11 and T12 hardware is intact, calcified coronary artery disease, extensive central lobar emphysema. I reviewed the patient's CT lumbar spine without contrast on the corresponding radiologic report, there is interval revision of the posterior spinal fusion which now spans from T11-S1, the hardware is intact and there are no acute abnormalities, the by pedicular screws at L2 have been removed since prior study, stable chronic changes at the L1-L2 disc space, unchanged from April 2024, MRI of the lumbar spine possibly representing sequela of discitis/osteomyelitis, moderate constipation. I discussed these findings with the patient at the bedside, patient's pain is better, patient agreement with current plan/discharge plan, follow-up with neurosurgery provider/PCP as directed, strict ED return precaution given. Patient can utilize Tylenol and muscle relaxers which she has at home for postoperative pain. Continue to follow postoperative striction's. Critical Care Critical Care Time Critical Care Time: No
--- NOTE | 2024-07-29 16:48 | CT_ITS ---
PROCEDURE INFORMATION: Exam: CT Lumbar Spine Without Contrast Exam date and time: 07/29/2024 5:14 PM Age: 64 years old Clinical indication: Low back pain; Prior surgery; Surgery date: 1-6 months; Surgery type: Hardware; Additional info: Fall S/P fusion, assess for hardware failure or FX TECHNIQUE: Imaging protocol: Computed tomography of the lumbar spine without contrast. Radiation optimization: All CT scans at this facility use at least one of these dose optimization techniques: automated exposure control; mA and/or kV adjustment per patient size (includes targeted exams where dose is matched to clinical indication); or iterative reconstruction. COMPARISON: 1. MR LUMBAR SPINE WO/W CON 05/07/2024 9:[address] LUMBAR SPINE WO CON 05/07/2024 8:48 AM FINDINGS: Tubes, catheters and devices: There are intact posterior bipedicular screws and intervening rods spanning the T11-S1 level. The bipedicular screws at the L2 level have been removed when compared to prior imaging and the T11-L1 screws have been added. All hardware appears intact. There are also fixation screws spanning the sacroiliac joints on each side. Bones/joints: Stable destructive bone changes along the inferior endplate of L1 and superior endplate of L2, possibly representing the sequelae of prior infection. Previous laminectomies L1-L5. Kidneys and ureters: Left renal atrophy. Stomach and bowel: Moderate constipation. Soft tissues: Dystrophic calcifications in the soft tissues IMPRESSION: 1. Interval revision of the posterior spinal fusion which now spans T11-S1. The hardware is intact and there are no acute abnormalities appreciated. The bipedicular screws at L2 have been removed since the prior study. 2. Stable chronic changes at the L1-L2 disc space, unchanged from the April 2024 MRI of the lumbar spine, possibly representing the sequelae of discitis/osteomyelitis. 3. Moderate constipation.
--- NOTE | 2024-07-29 16:48 | CT_ITS ---
PROCEDURE INFORMATION: Exam: CT Thoracic Spine Without Contrast Exam date and time: 07/29/2024 5:11 PM Age: 64 years old Clinical indication: Pain in thoracic spine; Prior surgery; Surgery date: 1-6 months; Surgery type: Hardware; Additional info: Fall S/P fusion, assess for hardware failure or FX TECHNIQUE: Imaging protocol: Computed tomography of the thoracic spine without contrast. Radiation optimization: All CT scans at this facility use at least one of these dose optimization techniques: automated exposure control; mA and/or kV adjustment per patient size (includes targeted exams where dose is matched to clinical indication); or iterative reconstruction. COMPARISON: MR LUMBAR SPINE WO/W CON 05/07/2024 9:14 AM FINDINGS: Bones/joints: Significant chronic degenerative disc disease at C6-C7. There are minor degenerative changes in the upper and midthoracic spine. There is bone cement in the T11 and T12 vertebral bodies. There are intact posterior bipedicular fusion screws in the T11 and T12 vertebral bodies. Soft tissues: Unremarkable. Lungs: Extensive centrilobular emphysema. Bilateral upper lobe pulmonary parenchymal scar. Pleural spaces: Small/focal calcified pleural plaque in the medial right lower chest. Heart: Aortic valve calcifications. Coronary arteries: Calcified coronary artery disease. IMPRESSION: 1. No CT evidence of a significant thoracic spine abnormality. 2. Bipedicular fusion hardware beginning at the T11 level and extending off the bottom of the study. The T11 and T12 hardware is intact. 3. Calcified coronary artery disease. 4. Extensive centrilobular emphysema.
[2024-07-29 16:54] VITALS: BP 106/61; PULSE 95; RESP 20; O2SAT 97; BMI 17.4
[2024-07-29] MEDS: HYDROCODONE/APAP 5/325 MG TABLET 1 TAB PO (16:59)
[2024-07-29 18:21] VITALS: BP 143/67; PULSE 70; RESP 20; TEMP 36.7; O2SAT 100
== END 2024-07-29 18:22 | disposition home or self-care (01) ==
PROVIDERS: Emergency Provider Emergency Medicine; PCP Nurse Practitioner Family
DX: M54.6 Pain in thoracic spine (principal); W54.8XXA Other contact with dog, initial encounter; M43.25 Fusion of spine, thoracolumbar region
CPT/HCPCS: 72128; 72131; 99284

== ENCOUNTER 2024-10-25 19:12 | Emergency (ER) | payer MEDICARE, SELFPAY ==
--- NOTE | 2024-10-25 17:45 | ECG_ITS ---
APPROVED REPORT Exam: Resting ECG HR:87 bpm ECG Measurements Heart Rate 87 AXES NC 205 P 70 QRSd 85 QRS 50 QT 377 T 83 QTc 422 Conclusion SINUS RHYTHM VOLTAGE CRITERIA FOR LVH [MEETS CRITERIA IN ONE OF: R(aVL), S(V1), R(V5), R(V5/V6)+S(V1)] ABNORMAL ECG UNCONFIRMED REPORT Electronically signed by : MURIEL MITCEHLL, 10/27/2024 23:24:49
[2024-10-25 19:13] VITALS: BP 135/64; PULSE 85; RESP 26; TEMP 36.4; O2SAT 95; BMI 17.3
[2024-10-25 19:30] VITALS: BP 139/72; RESP 12
--- NOTE | 2024-10-25 19:37 | XR_ITS ---
PROCEDURE INFORMATION: Exam: XR Chest Exam date and time: 10/25/2024 7:40 PM Age: 64 years old Clinical indication: Shortness of breath TECHNIQUE: Imaging protocol: Radiologic exam of the chest. Views: 2 views. COMPARISON: CR XR CHEST 2V 10/25/2024 7:40 PM FINDINGS: Lungs: There is a rounded nodular opacity in the right mid lung which is new from the comparison study and measures up to 2.3 cm. Pleural spaces: No large effusion or pneumothorax. Heart/Mediastinum: No evidence of mediastinal widening or cardiac silhouette enlargement; the mediastinum and heart appear within normal limits for contour and size. Vasculature: There are calcifications of the aortic arch. Bones/joints: Status post right shoulder arthroplasty. Surgical hardware is noted within the thoracolumbar spine. This could reflect a developing consolidation but further evaluation with thoracic CT may be appropriate. IMPRESSION: There is a rounded nodular opacity in the right mid lung which is new from the comparison study and measures up to 2.3 cm. This could reflect a developing consolidation but further evaluation with thoracic CT may be appropriate.
[2024-10-25] MEDS: ONDANSETRON 4MG/2ML VIAL 4 MG IV (19:42)
[2024-10-25] MEDS: ACETAMINOPHEN 500MG TAB 1000 MG PO (19:42)
[2024-10-25 19:45] LABS: Coronavirus 19, PCR Not Detected (NotDetected); Influenza A, PCR Not Detected (NotDetected); Influenza B, PCR Not Detected (NotDetected)
--- NOTE | 2024-10-25 19:45 | HMH.EDGENADL ---
Discharge Plan Disposition Patient Disposition: Home, Self-Care Condition: Good Prescriptions Prescriptions: New amoxicillin 250 mg capsule 250 mg PO BID 4 Days Qty: 8 0RF amoxicillin 500 mg capsule 1,000 mg PO TID 6 Days Qty: 36 0RF No Action furosemide 20 mg tablet 20 mg PO DAILY Qty: 30 1RF albuterol sulfate 90 mcg/actuation HFA aerosol inhaler 2 inh INHALATION Q6H PRN (Reason: shortness of breath or wheezing) 90 Days Qty: 8.5 3RF uthuwvckoxh-pgqarizgq-ghagapmi 100-62.5-25 mcg blister with device 1 inh INHALATION DAILY 90 Days Qty: 1 3RF prednisone 10 mg tablet 10 mg PO .COMPLEX Qty: 60 0RF Rx Instructions: 20mg (2 Tabs) PO BID x5days; 10 mg (1 Tab) PO BID x5days; 5mg (1/2 Tab) PO BID x5days potassium chloride 10 MEQ capsule, extended release 20 meq PO DAILY gabapentin 400 MG capsule 400 mg PO 5XDAY lisinopril 5 MG tablet 5 mg PO DAILY linaclotide 145 MCG capsule 145 mcg PO DAILY levofloxacin 750 MG tablet 750 mg PO DAILY 2 Days Qty: 2 0RF prednisone 20 mg tablet 40 mg PO DAILY 5 Days Qty: 10 0RF lidocaine 5 % adhesive patch,medicated 1 patch topical DAILY Qty: 30 0RF Rx Instructions: leave on most painful area for up to 12 hrs Referrals Follow up/Referrals: Provider,Referral, MD [Primary Care Provider] - See instructions Activity Restrictions/Add. Instructions Additional Instructions/Restrictions: You are being prescribed antibiotics to treat your pneumonia. Take this as prescribed. Follow-up with your primary care doctor on Sunday or Sunday if symptoms do not improve. If you develop any new or worsening symptoms, or if you become concerned for your health for any reason, return to the emergency department for evaluation Clinical Impressions Clinical Impression: Pneumonia Qualifiers: Pneumonia type: due to unspecified organism Laterality: bilateral Lung location: lower lobe of lung Qualified Code(s): J18.9 - Pneumonia, unspecified organism Print Language Print Language: Danish Discharge ED Provider: Eddie Canales Adult [facility] General Chief complaint: Chest Pain Stated complaint: stomach and head pain soa Time Seen by Provider: 10/25/24 19:27 Mode of Arrival: Wheelchair Source of Information: Patient Limitations: No Limitations Description of Symptoms (Recalled from ER Triage Doc. by RN): Pt c/o chest pressure/soa/cough/vasquez starting today around 1600. History of Present Illness HPI narrative: Marisa Yepez is a 64-year-old female with a past medical history of COPD and reportedly had congestive heart failure at 1 point who presents to the emergency department for complaints of 1 day of upper abdominal pain, chest tightness and a headache. Patient states that the pain in her chest feels tight and radiates to her back. She states that she has never had a heart attack before. She has had pneumonia before and states that it feels somewhat similar to this but not quite the same. She does have a cough as well as a headache that began around the same time. She denies any body aches or joints. She denies any leg swelling. She denies any previous history of pancreatitis or gallbladder issues. She denies any previous abdominal surgeries. She denies any dysuria or hematuria. Related Data Home Medications ?Medication ?Instructions ?Recorded ?Confirmed gabapentin 400 mg capsule 400 mg PO 5XDAY Pain 01/16/22 06/26/22 linaclotide 145 mcg capsule 145 mcg PO DAILY constipation 01/16/22 06/26/22 lisinopril 5 mg tablet 5 mg PO DAILY Hypertension 01/16/22 06/26/22 potassium chloride 10 mEq 20 meq PO DAILY potassium 01/16/22 06/26/22 capsule,extended release replacement Previous Rx's ?Medication ?Instructions ?Recorded levofloxacin 750 mg tablet 750 mg PO DAILY 2 days #2 tabs 01/18/22 prednisone 10 mg tablet 10 mg PO .COMPLEX #60 tabs 01/18/22 furosemide 20 mg tablet 20 mg PO DAILY Fluid #30 tabs 01/25/22 albuterol sulfate 90 mcg/actuation 2 inh inhalation Q6H PRN shortness 02/16/22 aerosol inhaler of breath or wheezing 90 days #8.5 grams fluticasone fur. 100 mcg-umeclid 1 inh inhalation DAILY 90 days #1 06/26/22 62.5 mcg-vilant 25 mcg ea inhalat.powder lidocaine 5 % topical patch 1 patch topical DAILY #30 ea 03/15/24 prednisone 20 mg tablet 40 mg (2 x 20 mg) PO DAILY 5 days 03/15/24 #10 tabs amoxicillin 250 mg capsule 250 mg PO BID 4 days #8 caps 10/25/24 amoxicillin 500 mg capsule 1,000 mg (2 x 500 mg) PO TID 6 10/25/24 days #36 caps Allergies Allergy/AdvReac Type Severity Reaction Status Date / Time No Known Allergies Allergy Verified 06/26/22 16:13 [facility] Disclaimer: The information contained in this section may have been updated after the patient was seen, as this information can be updated by other users. Medical History (Updated 10/25/24 @ 21:36 by Eddie Canales MD) Encounter for screening for malignant neoplasm of lung in current smoker with 30 pack year history or greater Pleural thickening Lung nodule Tobacco abuse disorder Tobacco abuse counseling COPD (chronic obstructive pulmonary disease) Smoking greater than 30 pack years Dyspnea on exertion Surgical History (Updated 07/06/22 @ 09:41 by RT Ketty) Previous back surgery Social History (Updated 07/06/22 @ 13:49 by Melvin Aponte MD) Smoking Status: Current some day smoker tobacco type: cigarettes packs per day: 3 alcohol intake: never current occupational status: disabled Travel in the last 8 weeks: None household members: significant other housing: house caffeine: Yes Have you lived/traveled outside [place] in past 30 days?: No Contact w/someone who lives/traveled outside [place] past 30 days?: No Exposure to someone with infectious disease in past 14 days?: No Do you have a fever (greater than 100.4 F or 38 C)?: No Have you tested positive for COVID-19: No Exposed to someone with COVID-19 in past 14 days?: Yes Do you have a sore throat?: No Do you have a cough?: No Do you have any weakness?: Yes Do you have any diarrhea?: No Are you experiencing any unusual bleeding?: No Do you have any muscle aches/pain?: No Do you have any abdominal pain?: Yes Are you experiencing loss of taste or smell?: No Other Medical History Have you received the Flu Vaccine for this season: No Have you received the Pneumonia Vaccine: No ROS Obtained: Yes Systems reviewed as appropriate & no additional complaints except as documented Physical Exam General General appearance: alert and in no apparent distress Comment: Thin Head Head exam: atraumatic Eye Eye exam: Present normal appearance ENT ENT exam: Present normal external ear exam Neck Neck exam: Present full ROM Chest Chest inspection: Present symmetric chest wall rise Respiratory Respiratory exam: Present normal lung sounds bilaterally; Absent respiratory distress, wheezes or stridor Cardiovascular Cardiovascular exam: Present regular rate and normal rhythm Abdominal Exam Abdominal exam: Present soft; Absent distention, tenderness or guarding Extremities Exam Extremities exam: Present normal inspection; Absent edema Back Exam Back exam: Present normal inspection Neurological Exam Neurological exam: Present alert and oriented X3 Psychiatric Psychiatric exam: Present normal affect Skin Skin exam: Present warm and dry Medical Decision Making Medical Records Screening: Per USPSTF and CDC recommendations, given the prevalence of disease in our region, it is our hospital?s policy to screen for HIV and viral Hepatitis for all patients aged 18 and over and those with ongoing risk factors. Kayden Inquiry Pt receiving controlled substance: No Vital Signs: 10/25/24 19:13 10/25/24 19:30 10/25/24 21:28 Temperature 97.6 F 98 F Temperature Source Oral Pulse Rate 87 Pulse Rate [Apical] 85 Respiratory Rate 26 H 12 22 Blood Pressure 139/72 143/66 H Blood Pressure [Right Arm] 135/64 Blood Pressure Mean [Right Arm] 87 02 Sat by Pulse Oximetry 95 Oxygen Delivery Method Room Air Room Air Lab Data Lab Results 10/25/24 19:25: WBC 11.9 H, RBC 3.76 L, Hgb 10.4 L, Hct 32.0 L, MCV 85.1, MCH 27.7, MCHC 32.6, RDW 15.9, Plt Count 294, MPV 8.0, Neut % (Auto) 81.8 H, Lymph % (Auto) 9.9 L, [place] % (Auto) 7.7, Eos % (Auto) 0.3, Baso % (Auto) 0.3, Neut # (Auto) 9.7 H, Lymph # (Auto) 1.2, [place] # (Auto) 0.9, Eos # (Auto) 0.0, Baso # (Auto) 0.0, Sodium 126 L, Potassium 4.4, Chloride 93 L, Carbon Dioxide 30, Anion Gap 7.4, BUN 15, Creatinine 0.50 L, Estimated Creat Clear 42, Estimated GFR 124, Est GFR ( Amer) 150, Glucose 108 H, Calcium 8.8, Total Bilirubin 0.5, AST 24, ALT 17, Alkaline Phosphatase 121, Troponin I < 0.01, NT-Pro-B Natriuret Pep 1860 H, Total Protein 6.5, Albumin 3.4 L, Globulin 3.1, Albumin/Globulin Ratio 1.1, Lipase 150 10/25/24 19:32: SARS-CoV-2 (PCR) Not detected, Influenza A Untype (PCR) Not detected, Influenza Type B (PCR) Not detected 10/25/24 19:46: Lactate 0.8 10/25/24 19:25 10/25/24 19:25 Orders (Tests/Meds): ED MEDICATIONS Discontinued Medications Generic Name Dose Route Start Last Admin Trade Name Freq PRN Reason Stop Dose Admin Acetaminophen 1,000 mg 10/25/24 19:37 10/25/24 19:42 Acetaminophen 500mg Tab PO 10/25/24 19:38 1,000 mg ONCE ONE Administration Amoxicillin 1,000 mg 10/25/24 21:32 10/25/24 21:36 Amoxicillin 500mg Capsule PO 10/25/24 21:33 1,000 mg ONCE ONE Administration Azithromycin 500 mg 10/25/24 21:32 10/25/24 21:36 Azithromycin 250mg Tablet PO 10/25/24 21:33 500 mg ONCE ONE Administration Ondansetron HCl 4 mg 10/25/24 19:37 10/25/24 19:42 Ondansetron 4mg/2ml Vial IV 10/25/24 19:38 4 mg ONCE ONE Administration ORDERS Category Date Time Status CXR 2 view (NOT portable) [XR chest 2V] Stat Exams 10/25/24 19:37 Completed BNP [NT Pro Brain Natriuretic Pep.] Stat Lab 10/25/24 19:25 Completed CBC w/Auto Diff [Complete Blood Count Auto Diff] Stat Lab 10/25/24 19:25 Completed CMP [Comprehensive Metabolic Panel] Stat Lab 10/25/24 19:25 Completed HIV (1&2) Antibody Rapid Stat Lab 10/25/24 19:25 Received Hep C Ab with Reflex to RNA Stat Lab 10/25/24 19:25 Received Lactic Acid Stat Lab 10/25/24 19:46 Completed Lipase Stat Lab 10/25/24 19:25 Completed Rapid PCR Covid and Flu A/B Stat Lab 10/25/24 19:32 Completed Troponin I Stat Lab 10/25/24 19:25 Completed UA [Urinalysis and Microscopic] Stat Lab 10/25/24 19:37 Stop Req Medical Decision Narrative: Marisa Yepez is a 64-year-old female with a past medical history of COPD, tobacco use and reported history of CHF in the past who presents to the emergency department for complaints of 4 hours of chest tightness, upper abdominal pain and cough as well as headache. On arrival, patient is hemodynamically stable, in no acute respiratory distress, afebrile, breathing comfortably on room air and is not tachypneic. SpO2 is 95% on room air. Physical exam, as stated above, reveals a thin appearing female in no acute distress. No wheezing, rales or rhonchi. No murmurs were appreciated. Abdomen is soft, nontender and nondistended. She does not have any peripheral edema. Differential diagnosis includes, but is not limited to: Pneumonia, ACS, pancreatitis, UTI, viral respiratory illness, among others. Patient's workup in the emergency department included: EKG, two-view chest x-ray, troponin, BNP, CBC, CMP, lipase, urinalysis. Patient's headache was treated with 1000 mg of oral Tylenol EKG interpreted by me personally at 1923 demonstrated a normal sinus rhythm with a ventricular rate of [address] elevation or depression. Patient does have large QRS complexes in the lateral leads likely indicative of LVH. Normal QTc of 422. W[place] interval of 205. Patient's chest x-ray interpreted by me personally. There is increased airway opacity in the right middle lobe concerning for infection. See radiology report for final details. Given patient's cough in the setting of these x-ray findings, will treat community-acquired pneumonia with amoxicillin and azithromycin. Lab work with mild leukocytosis of 11.9, sodium of 126 (is chronically low and close to baseline), no THUAN, electrolytes within normal limits, initial troponin 0.01 (will discontinue second troponin), BNP elevated at 1860, however at or below patient's baseline, lipase normal at 150, negative rapid respiratory panel. Patient was given a dose of amoxicillin and azithromycin here in the emergency department and is being discharged with a prescription for azithromycin and amoxicillin. Patient instructed to follow-up with her primary care physician on Sunday or Sunday of next week if symptoms are not improving. Return precautions were given. All questions were answered. She had remained hemodynamically stable throughout her entire ED visit and was appropriate for discharge at this time. She was amenable to this plan. She was then discharged from the emergency department in stable condition Critical Care Critical Care Time Critical Care Time: No
[2024-10-25 19:48] LABS: Albumin Level 3.4 g/dl (3.5-5.0); Basophils % 0.3 % (0.1-2.0); Chloride 93 mmol/L (98-107); Eosinophils % 0.3 % (0.1-12.0); Hemoglobin 10.4 g/dL (12.2-16.2); Lymphocytes # 1.2 K/mm3 (0.7-4.5); Lymphocytes % 9.9 % (10-50); Mean Corpuscular HGB Conc 32.6 g/dL (31.8-35.4); Mean Corpuscular Hemoglobin 27.7 pg (27.0-31.2); Mean Corpuscular Volume 85.1 fl (81-99); Monocytes # 0.9 K/mm3 (0.1-1.0); Monocytes % 7.7 % (1.7-9.3); Neutrophils # 9.7 K/mm3 (1.8-7.8); Neutrophils % 81.8 % (37.0-80.0); Platelet Count 294 K/mm3 (142-424); Red Blood Count 3.76 M/mm3 (4.20-5.40); Red Cell Distribution Width 15.9 % (11.5-17.5); White Blood Count 11.9 K/mm3 (4.8-10.8)
--- NOTE | 2024-10-25 19:48 | PC.NURSE ---
Pt to xray via wheelchair
[2024-10-25 19:49] LABS: Potassium 4.4 mmoL/L (3.5-5.1); Sodium 126 mmol/L (136-145)
[2024-10-25 19:51] LABS: Alanine Aminotransferase 17 U/L (12-78); Alkaline Phosphatase 121 U/L (38-126); Anion Gap 7.4 mEq/L (5-15); Aspartate Amino Transferase 24 U/L (14-36); Bilirubin,Total 0.5 mg/dl (0.2-1.3); Blood Urea Nitrogen 15 mg/dl (7-17); Carbon Dioxide 30 mmol/L (22.0-30.0); Creatinine Clearance Estimated 42 mL/min (50-200); Estimated Glomerular Filt Rate 124 ml/min (>60); GFR (African American) 150 ML/MIN (>60)
[2024-10-25 19:52] LABS: Albumin/Globulin Ratio 1.1 (1.1-1.8); Calcium 8.8 mg/dl (8.4-10.2); Globulin 3.1 g/dL (1.3-3.2); Glucose 108 mg/dl (74-100); Lipase 150 U/L (23-300); Total Protein,Serum 6.5 g/dl (6.3-8.2)
--- NOTE | 2024-10-25 19:52 | PC.NURSE ---
Pt back from xray
[2024-10-25 20:01] LABS: NT Pro Brain Natriuretic Pep. 1860 pg/mL (0-125)
[2024-10-25 20:05] LABS: Troponin I < 0.01 ng/ml (0.00-0.034)
[2024-10-25 20:08] LABS: Lactic Acid 0.8 mmol/L (0.7-2.1)
--- NOTE | 2024-10-25 20:20 | PC.NURSE ---
Pt to bathroom via wheelchair with lab technician assisting, unsuccessful urine collection. pt states I feel like im dehydrated. pt placed back into bed, placed back on monitor. aware
[2024-10-25 21:28] VITALS: BP 143/66; PULSE 87; RESP 22; TEMP 36.6; O2SAT 95
[2024-10-25] MEDS: AMOXICILLIN 500MG CAPSULE 1000 MG PO (21:36)
[2024-10-25] MEDS: AZITHROMYCIN 250MG TABLET 500 MG PO (21:36)
[2024-10-26 13:25] LABS: HIV Combo NEGATIVE (Negative)
[2024-10-27 10:08] LABS: HCV Ab Non Reactive (Non Reactive)
== END 2024-10-25 21:47 | disposition home or self-care (01) ==
PROVIDERS: Emergency Provider Student in an Organized Health Care Education/Training Program
DX: J18.9 Pneumonia, unspecified organism (principal); R07.89 Other chest pain; R06.02 Shortness of breath; R05.9 Cough, unspecified; R51.9 Headache, unspecified; F17.210 Nicotine dependence, cigarettes, uncomplicated
CPT/HCPCS: 71046; 80053; 83605; 83690; 83880; 84484; 85025; 86803; 87389; 87636; 93005; 96374; 99284; J2405

== ENCOUNTER 2024-12-18 09:50 | Inpatient (IN) | payer MEDICARE, SELFPAY ==
[2024-12-18] VITALS (17 sets, daily range): BP systolic 102–162; BP diastolic 46–78; PULSE 71–104; RESP 16–20; TEMP 36.3–36.7; O2SAT 90–100; BMI 16.6; BMI 16.9
--- NOTE | 2024-12-18 10:30 | XR_ITS ---
FINAL REPORT CLINICAL HISTORY: sob, cough COMPARISON: 01/25/2024 FINDINGS: There is mild cardiomegaly. The mediastinum is normal. There is a new dense airspace opacity at the right base probably due to acute pneumonia. There is no pneumothorax. There is a right shoulder prosthesis fusion and fusion hardware bridging the upper lumbar spine. IMPRESSION: New dense right lower lobe airspace infiltrate and effusion consistent with acute pneumonia or aspiration. Reviewed, Interpreted and Dictated by Skyler Mills MD Transcribed by Juliana Bowers Authenticated and [facility]
--- NOTE | 2024-12-18 10:34 | CT_ITS ---
FINAL REPORT TECHNIQUE: Axial images were performed through the brain. This study was performed with techniques to keep radiation doses as low as reasonably achievable, (ALARA). Individualized dose reduction techniques using automated exposure control or adjustment of mA and/or kV according to the patient''s size were employed. CLINICAL HISTORY: ams COMPARISON: 01/15/2022 FINDINGS: There is mild atrophy with proportional ventriculomegaly. There is no extra-axial fluid or midline shift. There is no evidence of acute hemorrhage or mass. There is mild opacification of the inferior right mastoid air cells consistent with mild right mastoiditis. IMPRESSION: Mild atrophy without acute intracranial abnormality. Mild right mastoiditis. Reviewed, Interpreted and Dictated by Skyler Mills MD Transcribed by Rosalina Currie Authenticated and [facility]
--- NOTE | 2024-12-18 10:51 | HMH.EDGENADL ---
Discharge Plan Disposition Patient Disposition: Admitted Clinical Impressions Clinical Impression: COPD exacerbation Pneumonia Qualifiers: Laterality: right Lung location: lower lobe of lung Discharge ED Provider: Ralph Mckeon Adult HPI General Chief complaint: Recheck/Abnormal Lab/Rx Stated complaint: Confusion Time Seen by Provider: 12/18/24 09:55 Mode of Arrival: Wheelchair Source of Information: Spouse Limitations: No Limitations Description of Symptoms (Recalled from ER Triage Doc. by RN): Spouse states the patient is talking out of her head. States he is having to repeat himself over and over again. Patient is currently alert and oriented x 4. History of Present Illness HPI narrative: Patient is a 64-year-old female with a history of COPD, not on any oxygen at home. Patient presents today due to concern for altered mental status. Reportedly yesterday she was talking out of her head . This is per significant other who is at bedside. Reports that she has not done this before. He does report that she has been more short of breath as of recent, reports chronic cough with no change in the characteristic of the cough. Denies any falls. She is denying any chest pain. Denies any fevers. Denying any dysuria, hematuria, vomiting, diarrhea. Denying any focal weakness numbness tingling. Does report that she had a headache this morning that self resolved. Related Data Home Medications ?Medication ?Instructions ?Recorded ?Confirmed linaclotide 145 mcg capsule 145 mcg PO DAILY 01/16/22 12/18/24 carvedilol 6.25 mg tablet 6.25 mg PO BID 12/18/24 12/18/24 diclofenac sodium 75 mg 75 mg PO BID 12/18/24 12/18/24 tablet,delayed release fluticasone fur. 200 mcg-umeclid 1 inh inhalation DAILY 12/18/24 12/18/24 62.5 mcg-vilant 25 mcg inhalat.powder (Trelegy Ellipta) fluticasone propionate 50 1 spray intranasal DAILY 12/18/24 12/18/24 mcg/actuation nasal spray,suspension lisinopril 10 mg tablet 10 mg PO DAILY 12/18/24 12/18/24 omeprazole 20 mg capsule,delayed 20 mg PO DAILY 12/18/24 12/18/24 release potassium chloride 20 mEq 20 meq PO DAILY 12/18/24 12/18/24 tablet,extended release(part/cryst) rosuvastatin 10 mg tablet 10 mg PO HS 12/18/24 12/18/24 Allergies Allergy/AdvReac Type Severity Reaction Status Date / Time No Known Allergies Allergy Verified 06/26/22 16:13 [facility] Disclaimer: The information contained in this section may have been updated after the patient was seen, as this information can be updated by other users. Medical History Encounter for screening for malignant neoplasm of lung in current smoker with 30 pack year history or greater Pleural thickening Lung nodule Tobacco abuse disorder Tobacco abuse counseling COPD (chronic obstructive pulmonary disease) Smoking greater than 30 pack years Dyspnea on exertion Surgical History Previous back surgery Family History Other No significant family history Social History Smoking Status: Current every day smoker tobacco type: cigarettes packs per day: 3 alcohol intake: never current occupational status: disabled Travel in the last 8 weeks: None household members: significant other housing: house caffeine: Yes Contact w/someone who lives/traveled outside [place] past 30 days?: No Exposure to someone with infectious disease in past 14 days?: No Do you have a fever (greater than 100.4 F or 38 C)?: No Have you tested positive for COVID-19: No Exposed to someone with COVID-19 in past 14 days?: No Do you have a sore throat?: No Do you have a cough?: No Do you have any weakness?: No Are you experiencing any nausea/vomitting?: No Do you have any diarrhea?: No Are you experiencing any unusual bleeding?: No Do you have any muscle aches/pain?: No Do you have any abdominal pain?: No Are you experiencing loss of taste or smell?: No Other Medical History Have you received the Flu Vaccine for this season: No Have you received the Pneumonia Vaccine: No ROS Obtained: Yes All systems reviewed & no additional complaints except as documented Physical Exam General General appearance: alert and in no apparent distress Head Head exam: atraumatic and normocephalic Eye Eye exam: Present PERRL and EOMI ENT ENT exam: Present normal oropharynx Neck Neck exam: Present full ROM and trachea midline Chest Chest inspection: Present symmetric chest wall rise Respiratory Respiratory exam: Present normal lung sounds bilaterally and wheezes (Rhonchi in the bases as well. No increased work of breathing no retractions); Absent stridor Cardiovascular Cardiovascular exam: Present regular rate and normal rhythm Abdominal Exam Abdominal exam: Present soft; Absent distention or tenderness Extremities Exam Extremities exam: Present full ROM Neurological Exam Neurological exam: Present alert and oriented X3 Psychiatric Psychiatric exam: Present normal mood Skin Skin exam: Present warm and dry Medical Decision Making Medical Records Screening: Per USPSTF and CDC recommendations, given the prevalence of disease in our region, it is our hospital?s policy to screen for HIV and viral Hepatitis for all patients aged 18 and over and those with ongoing risk factors. [place] Inquiry Pt receiving controlled substance: No Vital Signs: 12/18/24 09:52 12/18/24 10:11 12/18/24 10:31 Temperature 97.9 F Temperature Source Oral Pulse Rate 83 80 Pulse Rate [Radial] 87 Respiratory Rate 18 Blood Pressure 116/63 119/58 L Blood Pressure [Right Arm] 116/63 Blood Pressure Mean [Right Arm] 80 Blood Pressure Source Blood Pressure Source [Right Arm] Automatic Cuff Blood Pressure Position Blood Pressure Position [Right Arm] Sitting 02 Sat by Pulse Oximetry 95 92 L 98 Oxygen Delivery Method Room Air Nasal Cannula Nasal Cannula Oxygen Flow Rate (LPM) Fraction of Inspired Oxygen 12/18/24 11:01 12/18/24 11:25 12/18/24 11:30 Temperature Temperature Source Pulse Rate 84 76 Pulse Rate [Radial] Respiratory Rate Blood Pressure 124/61 105/53 L Blood Pressure [Right Arm] Blood Pressure Mean [Right Arm] Blood Pressure Source Blood Pressure Source [Right Arm] Blood Pressure Position Blood Pressure Position [Right Arm] 02 Sat by Pulse Oximetry 100 100 Oxygen Delivery Method Nasal Cannula Nasal Cannula Oxygen Flow Rate (LPM) Fraction of Inspired Oxygen 35 12/18/24 12:01 12/18/24 12:30 12/18/24 13:00 Temperature Temperature Source Pulse Rate 75 71 76 Pulse Rate [Radial] Respiratory Rate Blood Pressure 125/54 L 102/49 L 113/55 L Blood Pressure [Right Arm] Blood Pressure Mean [Right Arm] Blood Pressure Source Blood Pressure Source [Right Arm] Blood Pressure Position Blood Pressure Position [Right Arm] 02 Sat by Pulse Oximetry 99 99 98 Oxygen Delivery Method BiPAP BiPAP BiPAP Oxygen Flow Rate (LPM) Fraction of Inspired Oxygen 12/18/24 13:32 12/18/24 14:00 12/18/24 14:01 Temperature Temperature Source Pulse Rate 78 85 Pulse Rate [Radial] Respiratory Rate Blood Pressure 139/50 L 113/57 L Blood Pressure [Right Arm] Blood Pressure Mean [Right Arm] Blood Pressure Source Blood Pressure Source [Right Arm] Blood Pressure Position Blood Pressure Position [Right Arm] 02 Sat by Pulse Oximetry 98 96 Oxygen Delivery Method BiPAP Nasal Cannula Nasal Cannula Oxygen Flow Rate (LPM) 2 Fraction of Inspired Oxygen 12/18/24 14:03 Temperature 98.0 F Temperature Source Oral Pulse Rate 74 Pulse Rate [Radial] Respiratory Rate 16 Blood Pressure 139/78 Blood Pressure [Right Arm] Blood Pressure Mean [Right Arm] Blood Pressure Source Automatic Cuff Blood Pressure Source [Right Arm] Blood Pressure Position Sitting Blood Pressure Position [Right Arm] 02 Sat by Pulse Oximetry Oxygen Delivery Method Nasal Cannula Oxygen Flow Rate (LPM) 3 Fraction of Inspired Oxygen Lab Data Lab Results 12/18/24 10:43: WBC 8.6, RBC 3.33 L, Hgb 8.8 L, Hct 27.0 L, MCV 81.1, MCH 26.4 L, MCHC 32.6, RDW 17.5, Plt Count 146, MPV 9.7, Neut % (Auto) 86.3 H, Lymph % (Auto) 6.1 L, [place] % (Auto) 6.5, Eos % (Auto) 0.1, Baso % (Auto) 0.2, Neut # (Auto) 7.4, Lymph # (Auto) 0.5 L, [place] # (Auto) 0.6, Eos # (Auto) 0.0, Baso # (Auto) 0.0, Sodium 126 L, Potassium 4.5, Chloride 89 L, Carbon Dioxide 33 H, Anion Gap 8.5, BUN 12, Creatinine 0.50 L, Estimated Creat Clear 40, Estimated GFR 124, Est GFR ( Amer) 150, Glucose 78, Calcium 8.6, Magnesium 1.6, Total Bilirubin 0.2, AST 24, ALT 19, Alkaline Phosphatase 127 H, Ammonia < 9 L, Total Protein 6.2 L, Albumin 3.0 L, Globulin 3.2, Albumin/Globulin Ratio 0.9 L, Procalcitonin 0.071, TSH 1.03, Free T4 2.09, HCV Ab VEGA w/Rflx PCR Qn Negative, HIV Ag/Ab Combo Qual Negative 12/18/24 10:51: VBG pH 7.34, VBG pCO2 55.3 H, VBG pO2 41.8 H, VBG HCO3 29.3, VBG Total CO2 31.0 H, VBG O2 Saturation 73.3 H, VBG Base Excess 3.6 H, VBG Lactic Acid 0.9 12/18/24 12:52: VBG pH 7.34, VBG pCO2 53.8 H, VBG pO2 56.6 H, VBG HCO3 28.5, VBG Total CO2 30.2 H, VBG O2 Saturation 87.3 H, VBG Base Excess 2.8 H, VBG Lactic Acid 0.9 12/18/24 10:43 12/18/24 10:43 Orders (Tests/Meds): ED MEDICATIONS Generic Name Dose Route Start Last Admin Trade Name Freq PRN Reason Stop Dose Admin Acetaminophen 650 mg 12/18/24 14:13 Acetaminophen 325mg Tab PO 01/17/25 14:12 Q4HP PRN Fever or Mild Pain (1-3) Albuterol/Ipratropium 3 ml 12/18/24 18:00 Ipratropium/Albuterol 3 Ml Neb IH 01/17/25 17:59 Q6RT ROMULO Enoxaparin Sodium 40 mg 12/19/24 09:00 Enoxaparin 40mg/0.4ml Syringe SUBCUT 01/18/25 08:59 DAILY ROMULO Ceftriaxone Sodium 2 gm/ 100 mls @ 200 mls/hr 12/18/24 12:45 12/18/24 12:55 Sodium Chloride IV 12/28/24 12:44 200 mls/hr Q24H ROMULO Administration Azithromycin 500 mg/ Sodium 250 mls @ 250 mls/hr 12/18/24 12:45 12/18/24 13:48 Chloride IV 12/28/24 12:44 250 mls/hr Q24H ROMULO Administration Sodium Chloride 10 ml 12/18/24 14:28 Sodium Chloride 0.9% 10ml Flush Syringe IV 01/17/25 14:27 NEEDED PRN Maintain IV Site Discontinued Medications Generic Name Dose Route Start Last Admin Trade Name Freq PRN Reason Stop Dose Admin Albuterol/Ipratropium 9 ml 12/18/24 10:30 12/18/24 10:55 Ipratropium/Albuterol 3 Ml Neb IH 12/18/24 10:31 9 ml ONCE ONE Administration Magnesium Sulfate 2 gm in 50 mls @ 50 mls/hr 12/18/24 10:30 12/18/24 10:55 Magnesium Sulfate 2gm/50ml Premix IV 12/18/24 11:29 50 mls/hr ONCE ONE Administration Methylprednisolone Sodium Succinate 80 mg 12/18/24 10:30 12/18/24 10:55 Methylprednisolone Sod Succ 125mg Vial IV 12/18/24 10:31 80 mg ONCE ONE Administration ORDERS Category Date Time Status CT head/brain wo con Stat Cat Scan 12/18/24 10:34 Completed XR chest portable Stat Exams 12/18/24 10:30 Completed Ammonia Stat Lab 12/18/24 10:43 Completed CBC w/Auto Diff [Complete Blood Count Auto Diff] Stat Lab 12/18/24 10:43 Completed CMP [Comprehensive Metabolic Panel] Stat Lab 12/18/24 10:43 Completed Free T4 (Free Thyroxine) Stat Lab 12/18/24 10:43 Completed MAG [Magnesium] Stat Lab 12/18/24 10:43 Completed Procalcitonin Stat Lab 12/18/24 10:43 Completed TSH [Thyroid Stimulating Hormone] Stat Lab 12/18/24 10:43 Completed UA [Urinalysis and Microscopic] Stat Lab 12/18/24 10:31 Ordered UDS [Drug Screen,Urine] Stat Lab 12/18/24 10:31 Ordered Urine Culture Stat Micro 12/18/24 10:33 Ordered VBG [Venous Blood Gas] Stat RT 12/18/24 10:51 Completed VBG [Venous Blood Gas] Stat RT 12/18/24 12:52 Completed ECG Data Tracing #1: I reviewed this ECG and interpreted as documented below: Independently interpreted by myself demonstrate normal sinus rhythm with no acute ischemic ST changes. Meets criteria for LVH, not acutely actionable. Medical Decision Narrative: In summary, this 64-year-old presents to the emergency department today with altered mental status. On initial evaluation patient is afebrile, hemodynamically stable, apart from desaturating into the low 80s on room air. Placed on 2 L nasal cannula with good response. On exam, patient is warm and well-perfused with full pulses in bilateral upper extremities. She has no significant lower extremity edema. Heart is regular rate and rhythm, lung sounds have diffuse wheezing with a prolonged expiratory phase and rhonchi in the bases.. Differential diagnosis includes but is not limited to COPD exacerbation, ICH, SDH, delirium, UTI, electrolyte disturbance, hypothyroidism. Based on these concerns, I ordered CBC, CMP, magnesium, ammonia, TSH, free T4, chest x-ray, CT head, urinalysis. Patient received Solu-Medrol, magnesium IV, Rocephin, azithromycin, DuoNeb for treatment. Labs personally reviewed demonstrate anemia with hemoglobin of 8.8, down from 10.4 when compared with prior my independent review of the EMR. Mild hyponatremia at 126, similar compared with prior. No evidence of THUAN, no evidence of hyperammonemia, thyroid studies within normal limits. VBG demonstrates compensated respiratory acidosis 7.3 //. Spent an hour on BiPAP with some minimal improvement. She reports symptomatically she feels better. Though, once trialed on nasal cannula, she was unable to maintain her oxygen saturations above 80%, so was placed on 3 L nasal cannula with good effect. This is a new oxygen requirement, so will consult hospitalist for admission.. XR personally interpreted demonstrates right lower lobe pneumonia. CT imaging personally interpreted demonstrate no acute intracranial abnormality. I had an interactive discussion with hospitalist Dr. Huber who agrees to admit the patient to service for further workup and management. Patient returns to their service in hemodynamically stable condition on 3 L nasal cannula.. Of note, social determinants of health include poor health literacy. Critical Care Critical Care Time Critical Care Time: Yes Attestation: On 12/18/24, the high probability of a clinically significant, sudden or life threatening deterioration of the following system(s) required my full and direct attention, intervention and personal management. The time I documented below is in addition to time spent performing reported procedures but includes the following listed in this critical care notation. Total Time Total Critical Care Time: 35
--- NOTE | 2024-12-18 10:52 | PC.NURSE ---
NOTIFIED RESPIRATORY OF VBG ORDER
[2024-12-18] MEDS: METHYLPREDNISOLONE SOD SUCC 125MG VIAL 80 MG IV (10:55)
[2024-12-18] MEDS: MAGNESIUM SULFATE IN WATER 2 GM/50 ML PIGGYBACK IV (10:55)
[2024-12-18] MEDS: IPRATROPIUM/ALBUTEROL 3 ML NEB 9 ML IH (10:55)
--- NOTE | 2024-12-18 10:55 | ECG_ITS ---
APPROVED REPORT Exam: Resting ECG HR:88 bpm ECG Measurements Heart Rate 88 AXES MO 215 P 65 QRSd 87 QRS 14 QT 376 T 89 QTc 421 Conclusion SINUS RHYTHM WITH FIRST DEGREE AV BLOCK VOLTAGE CRITERIA FOR LVH [MEETS CRITERIA IN ONE OF: R(aVL), S(V1), R(V5), R(V5/V6)+S(V1)] NONSPECIFIC T-WAVE ABNORMALITY ABNORMAL ECG UNCONFIRMED REPORT Electronically signed by : MURIEL MITCHELL, 12/19/2024 06:52:18
[2024-12-18 10:56] LABS: Chloride 89 mmol/L (98-107); Sodium 126 mmol/L (136-145)
[2024-12-18 10:57] LABS: Potassium 4.5 mmoL/L (3.5-5.1)
[2024-12-18 10:59] LABS: Lactate Venous 0.9 mmol/L (0.4-2.0); VBG Base Excess 3.6 mmol/L (-2.4-2.3); VBG HCO3 29.3 mmol/L (23-30); VBG Oxygen Saturation 73.3 % (50-70); VBG PH 7.34 mmol/L (7.31-7.41); VBG PO2 41.8 mmol/L (28-40)
[2024-12-18 10:59] LABS: Alanine Aminotransferase 19 U/L (12-78); Albumin/Globulin Ratio 0.9 (1.1-1.8); Alkaline Phosphatase 127 U/L (38-126); Ammonia < 9 umol/L (9-30); Anion Gap 8.5 mEq/L (5-15); Aspartate Amino Transferase 24 U/L (14-36); Bilirubin,Total 0.2 mg/dl (0.2-1.3); Blood Urea Nitrogen 12 mg/dl (7-17); Calcium 8.6 mg/dl (8.4-10.2); Carbon Dioxide 33 mmol/L (22.0-30.0); Creatinine Clearance Estimated 40 mL/min (50-200); Estimated Glomerular Filt Rate 124 ml/min (>60); GFR (African American) 150 ML/MIN (>60); Globulin 3.2 g/dL (1.3-3.2); Glucose 78 mg/dl (74-100); Total Protein,Serum 6.2 g/dl (6.3-8.2)
[2024-12-18 11:00] LABS: Magnesium 1.6 mg/dl (1.6-2.3)
[2024-12-18 11:02] LABS: VBG PCO2 55.3 mmol/L (35-51)
--- NOTE | 2024-12-18 11:13 | PC.NURSE ---
Respiratory aware that MD order for bipap for one hour and then repeat vbg
[2024-12-18 11:20] LABS: Basophils % 0.2 % (0.1-2.0); Eosinophils % 0.1 % (0.1-12.0); Hemoglobin 8.8 g/dL (12.2-16.2); Lymphocytes # 0.5 K/mm3 (0.7-4.5); Lymphocytes % 6.1 % (10-50); Mean Corpuscular HGB Conc 32.6 g/dL (31.8-35.4); Mean Corpuscular Hemoglobin 26.4 pg (27.0-31.2); Mean Corpuscular Volume 81.1 fl (81-99); Mean Platelet Volume 9.7 fl (7.4-10.4); Monocytes # 0.6 K/mm3 (0.1-1.0); Monocytes % 6.5 % (1.7-9.3); Neutrophils # 7.4 K/mm3 (1.8-7.8); Neutrophils % 86.3 % (37.0-80.0); Platelet Count 146 K/mm3 (142-424); Red Blood Count 3.33 M/mm3 (4.20-5.40); Red Cell Distribution Width 17.5 % (11.5-17.5); White Blood Count 8.6 K/mm3 (4.8-10.8)
[2024-12-18 11:25] LABS: Free T4 (Free Thyroxine) 2.09 ng/dl (0.78-2.19)
[2024-12-18 11:30] LABS: Thyroid Stimulating Hormone 1.03 uIU/mL (0.465-4.68)
--- NOTE | 2024-12-18 12:45 | PC.NURSE ---
VBG sent to lab at 1245. Respiratory notified.
[2024-12-18] MEDS: CEFTRIAXONE SODIUM 2 GM in 0.9 % SODIUM CHLORIDE 100 ML IV (12:55)
[2024-12-18 13:11] LABS: Procalcitonin 0.071 ng/mL (0.0-2.0)
--- NOTE | 2024-12-18 13:16 | PC.NURSE ---
Ce from respiratory called, 7.34 pH, CO53.8, PO2 56.6, and sat 87.3
[2024-12-18 13:21] LABS: VBG HCO3 28.5 mmol/L (23-30); VBG PCO2 53.8 mmol/L (35-51); VBG PH 7.34 mmol/L (7.31-7.41); VBG PO2 56.6 mmol/L (28-40)
[2024-12-18 13:22] LABS: Lactate Venous 0.9 mmol/L (0.4-2.0); VBG Base Excess 2.8 mmol/L (-2.4-2.3); VBG Oxygen Saturation 87.3 % (50-70); VBG Total CO2 30.2 mmol/L (23-27)
[2024-12-18] MEDS: AZITHROMYCIN 500 MG in 0.9 % SODIUM CHLORIDE 250 ML 250 MG IV (13:48)
--- NOTE | 2024-12-18 13:53 | PC.NURSE ---
[facility] made [facility]
--- NOTE | 2024-12-18 14:03 | PC.NURSE ---
Report called to [facility] Spaulding on Med Surg.
--- NOTE | 2024-12-18 14:09 | HMH.PHAINT1 ---
Pharmacy Intervention Comments: MEDICATION RECONCILIATION COMPLETED ON PATIENT USING EXTERNAL FILL HISTORY FROM PHARMACY. -BEN SILVA, JUANAD
--- NOTE | 2024-12-18 14:15 | P.HP_ITS ---
History of Present Illness *Admission Date: 12/18/24 *Reason for visit:: Shortness of breath, confusion, cough *History of present illness: Mrs. Kruse is a 64-year-old female with extensive smoking history, COPD, hypertension, hyperlipidemia. She presents to the ER with her who states she has been talking out of her head. He has been repeating himself more than usual. On arrival to the ER, she appeared alert. Workup in the ER shows patient to be hypoxic. Normally wears 1 L at night, needing 3 L continuous to maintain sats above 90%. Initial labs showed normal white count, sodium low at 126. Chest imaging concerning for right lower lobe airspace disease. Given her confusion, findings on chest imaging, and increased oxygen requirement, medicine consulted for admission and treatment of pneumonia. Patient initiated on antibiotics in the ER. Hemodynamically stable febrile this time. On evaluation after arriving to the floor, she denies any significant chest pain. Does complain of cough for about a week. Denies any fevers but has been cold lately. No nausea, vomiting, diarrhea. Given location of pneumonia, asked about choking when she eats. States sometimes she will cough when she eats or drinks but not regularly. She is alert and oriented x 4 on my interview. Exam remarkable for crackles in right lower lobe. Appears comfortable in bed. [facility] Disclaimer: The information contained in this section may have been updated after the patient was seen, as this information can be updated by other users. Medical History Encounter for screening for malignant neoplasm of lung in current smoker with 30 pack year history or greater Pleural thickening Lung nodule Tobacco abuse disorder Tobacco abuse counseling COPD (chronic obstructive pulmonary disease) Smoking greater than 30 pack years Dyspnea on exertion Surgical History Previous back surgery Family History Other No significant family history Social History Smoking Status: Current every day smoker tobacco type: cigarettes packs per day: 3 alcohol intake: never current occupational status: disabled Travel in the last 8 weeks: None household members: significant other housing: house caffeine: Yes Contact w/someone who lives/traveled outside [place] past 30 days?: No Exposure to someone with infectious disease in past 14 days?: No Do you have a fever (greater than 100.4 F or 38 C)?: No Have you tested positive for COVID-19: No Exposed to someone with COVID-19 in past 14 days?: No Do you have a sore throat?: No Do you have a cough?: No Do you have any weakness?: No Are you experiencing any nausea/vomitting?: No Do you have any diarrhea?: No Are you experiencing any unusual bleeding?: No Do you have any muscle aches/pain?: No Do you have any abdominal pain?: No Are you experiencing loss of taste or smell?: No Other Medical History Have you received the Flu Vaccine for this season: No Have you received the Pneumonia Vaccine: No Review of Systems Review of Systems Review of systems (narrative): 14 point review of systems performed, pertinent positives and negatives as per [facility] Meds Home Medications and Allergies Home Medications ?Medication ?Instructions ?Recorded ?Confirmed ?Type linaclotide 145 mcg capsule 145 mcg PO DAILY 01/16/22 12/18/24 History carvedilol 6.25 mg tablet 6.25 mg PO BID 12/18/24 12/18/24 History diclofenac sodium 75 mg 75 mg PO BID 12/18/24 12/18/24 History tablet,delayed release fluticasone fur. 200 mcg-umeclid 1 inh inhalation DAILY 12/18/24 12/18/24 History 62.5 mcg-vilant 25 mcg inhalat.powder (Trelegy Ellipta) fluticasone propionate 50 1 spray intranasal DAILY 12/18/24 12/18/24 History mcg/actuation nasal spray,suspension lisinopril 10 mg tablet 10 mg PO DAILY 12/18/24 12/18/24 History omeprazole 20 mg capsule,delayed 20 mg PO DAILY 12/18/24 12/18/24 History release potassium chloride 20 mEq 20 meq PO DAILY 12/18/24 12/18/24 History tablet,extended release(part/cryst) rosuvastatin 10 mg tablet 10 mg PO HS 12/18/24 12/18/24 History New Prescriptions to Start Prescriptions: Allergies Allergy/AdvReac Type Severity Reaction Status Date / Time No Known Allergies Allergy Verified 06/26/22 16:13 Exam Data for Last 24 hours Vital signs and Labs for Last 24 Hours: Temp Pulse Resp BP Pulse Ox O2 Del Method O2 Flow Rate 98.0 F 74 16 139/78 98 Nasal Cannula 3 12/18/24 14:03 12/18/24 14:03 12/18/24 14:03 12/18/24 14:03 12/18/24 13:32 12/18/24 14:03 12/18/24 14:03 FiO2 35 12/18/24 11:25 Laboratory Results - last 24 hr 12/18/24 10:43: WBC 8.6, RBC 3.33 L, Hgb 8.8 L, Hct 27.0 L, MCV 81.1, MCH 26.4 L , MCHC 32.6, RDW 17.5, Plt Count 146, MPV 9.7, Neut % (Auto) 86.3 H, Lymph % (Auto) 6.1 L, [place] % (Auto) 6.5, Eos % (Auto) 0.1, Baso % (Auto) 0.2, Neut # (Auto) 7.4, Lymph # (Auto) 0.5 L, [place] # (Auto) 0.6, Eos # (Auto) 0.0, Baso # (Auto) 0.0, Sodium 126 L, Potassium 4.5, Chloride 89 L, Carbon Dioxide 33 H, Anion Gap 8.5, BUN 12, Creatinine 0.50 L, Estimated Creat Clear 40, Estimated GFR 124, Est GFR ( Amer) 150, Glucose 78, Calcium 8.6, Magnesium 1.6, Total Bilirubin 0.2, AST 24, ALT 19, Alkaline Phosphatase 127 H, Ammonia < 9 L, Total Protein 6.2 L, Albumin 3.0 L, Globulin 3.2, Albumin/Globulin Ratio 0.9 L, Procalcitonin 0.071, TSH 1.03, Free T4 2.09 12/18/24 10:51: VBG pH 7.34, VBG pCO2 55.3 H, VBG pO2 41.8 H, VBG HCO3 29.3, VBG Total CO2 31.0 H, VBG O2 Saturation 73.3 H, VBG Base Excess 3.6 H, VBG Lactic Acid 0.9 12/18/24 12:52: VBG pH 7.34, VBG pCO2 53.8 H, VBG pO2 56.6 H, VBG HCO3 28.5, VBG Total CO2 30.2 H, VBG O2 Saturation 87.3 H, VBG Base Excess 2.8 H, VBG Lactic Acid 0.9 I & O for Last 24 hours: Intake & Output 12/15/24 12/16/24 12/17/24 12/18/24 23:59 23:59 23:59 23:59 Weight 45.359 kg Constitutional Constitutional: mild distress, thin, chronically ill appearing and cooperative *Routine HEENT Exam Head: Present normocephalic Eye: Present EOMI and PERRL ENT: Present mucous membranes moist *Routine Neck Exam Neck: Present supple; Absent lymphadenopathy *Routine Respiratory Exam Respiratory: Present prolonged expiratory phase and crackles (Right lower lung field); Absent accessory muscle use, rhonchi or wheezes *Routine Cardiovascular Exam Cardiovascular: Present RRR *Routine Abdominal Exam Abdominal: Present soft and normoactive bowel sounds; Absent tenderness *Routine Rectal Exam Rectal:: deferred *Routine Genitalia Exam Genitalia:: deferred *Routine Extremities Exam Extremities: Absent cyanosis, clubbing or edema *Routine Skin Exam Skin: Present warm; Absent rash *Routine Neurological Exam Neurological: Present alert, oriented X3 and moving all extremities; Absent altered mental status Assessment and Plan *Assessment and plan (1) Pneumonia: Status: Acute Qualifiers: Laterality: right Lung location: lower lobe of lung Category: Medical Code(s): J18.9 - Pneumonia, unspecified organism (2) Acute on chronic hypoxic respiratory failure: Status: Acute Category: Medical Code(s): J96.21 - Acute and chronic respiratory failure with hypoxia (3) Confusion: Status: Acute Category: Medical Code(s): R41.0 - Disorientation, unspecified (4) COPD (chronic obstructive pulmonary disease): Status: Chronic Qualifiers: COPD type: unspecified COPD Qualified Code(s): J44.9 - Chronic obstructive pulmonary disease, unspecified Category: Medical Code(s): J44.9 - Chronic obstructive pulmonary disease, unspecified (5) Smoking greater than 30 pack years: Status: Chronic Category: Social Hx Code(s): F17.210 - Nicotine dependence, cigarettes, uncomplicated (6) Severe protein-calorie malnutrition: Status: Acute Category: Medical Code(s): E43 - Unspecified severe protein-calorie malnutrition Plan 64-year-old female with extensive smoking history on intermittent oxygen at night. Presents with worsening shortness of breath and cough for a week. Family brought her in because she was confused and talking out of her head. Has some improvement in mentation but found to have pneumonia on chest imaging. Discussed case with ER physician, request admission for further management. I agreed to admit for further treatment, IV antibiotics, given increased oxygen requirement. PSI/port score 105, class IV risk. necessitating admission. Problems addressed as follows Lobar pneumonia COPD Acute on chronic hypoxemic respiratory failure -Pneumonia concerning for community-acquired versus aspiration given location in right lobe. Per my review of chest x-ray, has consolidation of right lower lobe. White count normal at 8.6. Procalcitonin 0.07 - White count neutrophil predominant 86%. -Continue supplemental oxygen as needed for goal sats greater 90%. Currently on 2L -Continue ceftriaxone 2 g daily and azithromycin 500 mg daily. -Received methylprednisolone in the ER, she does not have significant wheeze we will hold on further steroid -DuoNebs every 6 hours - sputum and blood cultures pending -Resume home Trelegy 200 inhaler - CBC,CMP Mg ordered for the morning Hyponatremia -May be additional culprit in her confusion. Sodium 126 on presentation. Urine sodium pending. Monitor for improvement with gentle hydration. -Suspect SIADH given lung infection and lung pathology versus hypovolemic hyponatremia. CAD Hyperlipidemia Hypertension -Continue home Crestor 10 mg nightly, continue lisinopril 10 mg daily, continue carvedilol 6.25 mg twice daily GERD: Continue home PPI Severe protein calorie malnutrition: Patient is cachectic with BMI of 17. Will supplement with meals. Nutrition consulted. DNR/DNI Lovenox 40 mg subcu daily Regular diet
[2024-12-18 15:16] LABS: Adenovirus,PCR Not Detected (NotDetected); Bordetella Pertussis Not Detected (NotDetected); Chlamydophila Pneumoniae, PCR Not Detected (NotDetected); Coronavirus 19, PCR Not Detected (NotDetected); Coronavirus 229E Not Detected (NotDetected); Coronavirus NL63 Not Detected (NotDetected); Coronavirus OC43 Not Detected (NotDetected); Coronovirus HKU1,PCR Not Detected (NotDetected); Human Metapneumovirus Not Detected (NotDetected); Influenza A, PCR Not Detected (NotDetected); Influenza AH1, 2009 Not Detected (NotDetected); Influenza AH1, PCR Not Detected (NotDetected); Influenza AH3,PCR Not Detected (NotDetected); Influenza B, PCR Not Detected (NotDetected); Mycoplasma Pneumoniae, PCR Not Detected (NotDetected); Parainfluenza 1, PCR Not Detected (NotDetected); Parainfluenza 2, PCR Not Detected (NotDetected); Parainfluenza 3, PCR Not Detected (NotDetected); Parainfluenza 4, PCR Not Detected (NotDetected); Respiratory Syncytial Virus Not Detected (NotDetected); Rhinovirus/Enterovirus Not Detected (NotDetected)
[2024-12-18 15:24] LABS: HIV Combo NEGATIVE (Negative)
[2024-12-18 15:32] LABS: Hepatitis C Ab Qual. W/ RFX NEGATIVE (Negative)
--- NOTE | 2024-12-18 15:36 | PC.NURSE ---
Pt. passed bedside swallow exam.
[2024-12-18] MEDS: 0.9 % SODIUM CHLORIDE 1000ML 1,000 ML 100 ML IV (16:53)
[2024-12-18] MEDS: IPRATROPIUM/ALBUTEROL 3 ML NEB IH (18:02)
[2024-12-18] MEDS: PANTOPRAZOLE 40MG TABLET 40 MG PO (20:19)
[2024-12-18] MEDS: CARVEDILOL 6.25MG TABLET 6.25 MG PO (20:19)
[2024-12-19] VITALS: BP 126/54; PULSE 95; RESP 17; TEMP 36.6; O2SAT 93
[2024-12-19] MEDS: IPRATROPIUM/ALBUTEROL 3 ML NEB IH ×3 (00:15→12:58)
[2024-12-19 01:42] LABS: Microscopic, Urine URINE MICROSCOPIC (MICROSCOPIC)
[2024-12-19 02:26] LABS: Appearance,Urine CLEAR (Clear); Bilirubin,Urine Negative (Negative); Blood, Urine Negative (Negative); Color,Urine YELLOW (Yellow); Glucose,Urine (UA) Negative (Negative); Ketones,Urine Negative (Negative); Leukocyte Esterase,Urine TRACE (Negative); Nitrate,Urine Negative (Negative); PH,Urine 6.5 (5.0-8.5); Protein,Urine Negative (Negative); Specific Gravity, Urine 1.015 (1.005-1.030); Urobilinogen,Urine 0.2 EU/dl (0.2)
[2024-12-19 02:37] LABS: Bacteria,Urine Trace /lpf; WBC,Urine Occasional #/hpf (0-3)
[2024-12-19 03:50] LABS: Barbiturates Screen,Urine Negative ng/ml (<200)
[2024-12-19 03:51] LABS: Amphetamine/Metha Screen,Urine Negative ng/ml (<1000); Benzodiazepines Screen,Urine Negative ng/ml (<200)
[2024-12-19 03:52] LABS: Cannabinoid Screen,Urine Negative ng/ml (<50); Methadone Screen,Urine Negative ng/ml (<300)
[2024-12-19 03:53] LABS: Cocaine Screen,Urine Negative ng/ml (<300)
[2024-12-19 03:54] LABS: Opiate Screen,Urine Negative ng/ml (<300)
[2024-12-19 03:55] LABS: Phencyclidine Screen,Urine Negative ng/ml (<25)
[2024-12-19 04:00] VITALS: BP 129/88; PULSE 93; RESP 16; TEMP 36.4; O2SAT 91; BMI 17.8
--- NOTE | 2024-12-19 04:16 | PC.NURSE ---
Patient is alert and oriented x4. Patient was observed to have eyes closed, respirations even and unlabored on 2 L of oxygen via nasal cannula, and no apparent distress throughout the night. Oxygen saturations have remained within the low 90s. She has not had any complaints this shift. Upon auscultation, diminished lung sounds could be heard; heart and bowel sounds were within normal findings. Abdomen was soft and non-tender with palpation. Upon assessment, she stated that she was unsure of when her last bowel movement occurred. Scheduled medications were administered as appropriately per JAN. Normal saline infusion was completed during this shift. Patient ambulates independently as tolerated with standby assistance. She refused a bedtime snack but was given a couple different beverages to drink. Swallows without difficulty. At this time, the patient is resting in bed. No acute changes noted thus far. Call light within reach.
[2024-12-19 06:26] LABS: Basophils % 0.2 % (0.1-2.0); Hematocrit 23.9 % (37.0-47.0); Lymphocytes # 0.5 K/mm3 (0.7-4.5); Lymphocytes % 8.2 % (10-50); Mean Corpuscular HGB Conc 32.2 g/dL (31.8-35.4); Mean Corpuscular Hemoglobin 26.2 pg (27.0-31.2); Mean Corpuscular Volume 81.3 fl (81-99); Mean Platelet Volume 9.8 fl (7.4-10.4); Monocytes # 0.3 K/mm3 (0.1-1.0); Neutrophils % 84.6 % (37.0-80.0); Platelet Count 119 K/mm3 (142-424); Red Blood Count 2.94 M/mm3 (4.20-5.40); Red Cell Distribution Width 17.6 % (11.5-17.5)
[2024-12-19 06:45] LABS: Albumin Level 2.7 g/dl (3.5-5.0); Chloride 92 mmol/L (98-107); Potassium 4.6 mmoL/L (3.5-5.1); Sodium 126 mmol/L (136-145)
[2024-12-19 06:48] LABS: Alanine Aminotransferase 15 U/L (12-78); Albumin/Globulin Ratio 0.9 (1.1-1.8); Alkaline Phosphatase 103 U/L (38-126); Anion Gap 6.6 mEq/L (5-15); Aspartate Amino Transferase 23 U/L (14-36); Blood Urea Nitrogen 9 mg/dl (7-17); Carbon Dioxide 32 mmol/L (22.0-30.0); Creatinine Clearance Estimated 43 mL/min (50-200); Estimated Glomerular Filt Rate 124 ml/min (>60); GFR (African American) 150 ML/MIN (>60); Total Protein,Serum 5.7 g/dl (6.3-8.2)
[2024-12-19 06:49] LABS: Calcium 8.4 mg/dl (8.4-10.2); Glucose 110 mg/dl (74-100)
[2024-12-19 06:51] LABS: Hemoglobin 7.7 g/dL (12.2-16.2)
[2024-12-19 06:52] LABS: Bilirubin,Total 0.1 mg/dl (0.2-1.3)
[2024-12-19 08:00] VITALS: BP 140/70; PULSE 91; RESP 18; TEMP 36.6; O2SAT 92
[2024-12-19] MEDS: CARVEDILOL 6.25MG TABLET 6.25 MG PO (08:48)
[2024-12-19] MEDS: LISINOPRIL 10MG TABLET 10 MG PO (08:48)
[2024-12-19] MEDS: ENOXAPARIN 40MG/0.4ML SYRINGE 40 MG SUBCUT (08:50)
--- NOTE | 2024-12-19 10:36 | HMH.SLDYSPHA ---
Speech & Language Evaluation Speech/Language Dysphagia Evaluation Start: 12/19/24 10:16 Freq: ONCE Status: Active Protocol: Document 12/19/24 10:16 MIKE (Rec: 12/19/24 10:36 [facility] [id number]) Dysphagia Assess/Goals/Plan Assessment Date of Evaluation: 12/19/24 Evaluation Type Initial Certification Assessment/Problems dysphagia per MD order Does Patient Qualify for Service No Qualify/Failure Comment Based on clinical observations made throughout CSE, as well as patient and nursing interviews, pt's mastication and manipulation of bolus appear to be WFL no further skilled speech therapy services are warranted at this time. Recommendations PHYSICIAN CERTIFICATION: The specified therapy services are required, authorized, and reviewed every 30 days. Diet Recommendations Mechanical Soft Liquid Type Recommendations Normal/Thin SL Swallow Guidelines Alt bite w/sip thru meal, Standard Aspiration Prec. Dysphagia Swallow Precautions/Strategies Sitting Upright (90 deg),Small Bites and Sips,Alternate Liquids/Solids Plan Pt/Guardian verbally ack understanding Yes of dx/prognosis/goals G -code Required No Education Instructions provided Discussed CSE results, diet recommendations, compensatory strategies, and aspiration risks/precautions with pt, nursing, and care management all of which expressed understanding. Pt/Caregiver able to recall information Able to recall/restate Reinforcement needed No Speech & Language HPI History Present Illness Description of Patient Problem SENIOR BI ARCHITECT pulled following from H&P and chart review, Mrs. Kruse is a 64-year-old female with extensive smoking history, COPD, hypertension, hyperlipidemia. She presents to the ER with her who states she has been talking out of her head. He has been repeating himself more than usual. On arrival to the ER, she appeared alert. Workup in the ER shows patient to be hypoxic. Normally wears 1 L at night, needing 3 L continuous to maintain sats above 90%. Initial labs showed normal white count, sodium low at 126. Chest imaging concerning for right lower lobe airspace disease. Given her confusion, findings on chest imaging, and increased oxygen requirement, medicine consulted for admission and treatment of pneumonia. Patient initiated on antibiotics in the ER. Hemodynamically stable febrile this time. On evaluation after arriving to the floor, she denies any significant chest pain. Does complain of cough for about a week. Denies any fevers but has been cold lately. No nausea, vomiting, diarrhea. Given location of pneumonia, asked about choking when she eats. States sometimes she will cough when she eats or drinks but not regularly. She is alert and oriented x 4 on my interview. Exam remarkable for crackles in right lower lobe. Appears comfortable in bed. CXR impressions New dense right lower lobe airspace infiltrate and effusion consistent with acute pneumonia or aspiration. Pt/Caregiver Concerns Pt reports no concerns with swallowing. She states it takes her longer to eat 2' not wearing bottom dentures. When asked about coughing/choking concerns pt declined. Pt also noted to report she does not eat much and grazes. SENIOR BI ARCHITECT reported to nursing given pt c /o sore tongue and mouth. Rehab Services Assessed Speech therapy Language Primary Language [place]uran General Information General Current Food Consistancy Regular,Thin Liquids Dentition Upper Only Oxygen Status Nasal Cannula Patient Orientation Person,Place,Time,Situation Ability to Follow Directions Good Communication Ability No Impairment Dysphagia:Food Presentation Evaluation Food Type Pureed,Mechanical Soft,Regular ,Liquid,Pudding Dysphagia Evaluation Summary Pt was seen sitting upright in bed at this date. She was A& Ox4. She reported no difficulty with breakfast. Nursing stated she ate well and had no s/sxs of overt aspiration, as well as doing well with meds. She was presented all bolus consistency trials x3 to assess for consistency and/or fatigue. Pt reports her mouth is sore, does not wear her bottom denture, and mealtimes are extended 2' eating slowly. Pt was administered the following trials with no overt s/sxs of aspiration: thin liquids (declined ice chips, spoonful of water, one open cup sip (pt then stated she prefers straw and rarely drinks with open cup, straw sip, and subsequent sips from straw), pudding, pureed applesauce, mechanical soft ( nutrigrain bar), and regular ( claudine cracker x1 given oral withholding to 'soften' cracker 2' lack of adequate dentition.) Pt would benefit from mechanical soft chopped diet with thin liquids during stay at [facility] and no further skilled speech therapy services are warranted at this time. SENIOR BI ARCHITECT will f/u as needed and/or if new concerns arise. Stroke Dysphagia Assessment PHYSICIAN CERTIFICATION: I certify the specified therapy services for Marisa Kruse are required, authorized, and reviewed every 30 days.
[2024-12-19] MEDS: CEFTRIAXONE SODIUM 2 GM in 0.9 % SODIUM CHLORIDE 100 ML IV (12:42)
[2024-12-19] MEDS: NYSTATIN SUSP 500,000 UNITS/5ML UDC 500000 UNIT PO (12:42)
[2024-12-19 13:19] VITALS: RESP 18
[2024-12-19] MEDS: SODIUM CHLORIDE 3% 15ML NEB 3 ML IH (13:21)
[2024-12-19 13:30] VITALS: BP 143/72; PULSE 77; RESP 18; TEMP 36.7; O2SAT 98
[2024-12-19] MEDS: AZITHROMYCIN 500 MG in 0.9 % SODIUM CHLORIDE 250 ML 250 MG IV (13:32)
[2024-12-19 13:45] VITALS: BP 125/69; PULSE 78; RESP 20; O2SAT 95
--- NOTE | 2024-12-19 14:03 | P.DS_ITS ---
General Admission date:: 12/18/24 Discharge date: 12/19/24 HPI HPI HPI: Mrs. Kruse is a 64-year-old female with extensive smoking history, COPD, hypertension, hyperlipidemia. She presents to the ER with her who states she has been talking out of her head. He has been repeating himself more than usual. On arrival to the ER, she appeared alert. Workup in the ER shows patient to be hypoxic. Normally wears 1 L at night, needing 3 L continuous to maintain sats above 90%. Initial labs showed normal white count, sodium low at 126. Chest imaging concerning for right lower lobe airspace disease. Given her confusion, findings on chest imaging, and increased oxygen requirement, medicine consulted for admission and treatment of pneumonia. Patient initiated on antibiotics in the ER. Hemodynamically stable febrile this time. On evaluation after arriving to the floor, she denies any significant chest pain. Does complain of cough for about a week. Denies any fevers but has been cold lately. No nausea, vomiting, diarrhea. Given location of pneumonia, asked about choking when she eats. States sometimes she will cough when she eats or drinks but not regularly. She is alert and oriented x 4 on my interview. Exam remarkable for crackles in right lower lobe. Appears comfortable in bed. Hospital Course Hospital Course Hospital Course: 64-year-old female with extensive smoking history on intermittent oxygen at night. Presents with worsening shortness of breath and cough for a week. Family brought her in because she was confused and talking out of her head. Has some improvement in mentation but found to have pneumonia on chest imaging. Discussed case with ER physician, request admission for further management. I agreed to admit for further treatment, IV antibiotics, given increased oxygen requirement. PSI/port score 105, class IV risk. necessitating admission. Patient did well during admission. Evaluated by speech, recommend mechanical soft diet. Tolerating antibiotics. Will transition to oral antibiotics. Stable oxygen requirement of 2 L. Stable to discharge home with further management as an outpatient. Problems addressed as follows -Concern for component of thrush due to antibiotics and inhalers. Started on nystatin swish and swallow 4 times a day. Lobar pneumonia COPD Acute on chronic hypoxemic respiratory failure -Pneumonia concerning for community-acquired versus aspiration given location in right lobe. Per my review of chest x-ray, has consolidation of right lower lobe. White count normal at 8.6. Procalcitonin 0.07. White count neutrophil predominant. Remained stable at 6 on day of discharge. Continues to require continuous supplemental oxygen at 2 L. Patient's oxygen saturation was 85% at rest on room air. Initially treated with ceftriaxone and azithromycin on admission. Transition to Augmentin for coverage of aspiration pathogens. Continue breathing treatments as needed. Resume Trelegy 200 inhaler. Cultures remain negative recommend follow-up with PCP in 1 to 2 weeks Hyponatremia -May be additional culprit in her confusion. Sodium 126 on presentation. Urine sodium 52, inappropriately high for hyponatremia. Suspect component of mild SIADH from lung pathology or lung infection. Would benefit from liberal sodium intake with diet. Encourage restriction less than 2 L a day of p.o. free water CAD Hyperlipidemia Hypertension -Continue home Crestor 10 mg nightly, continue lisinopril 10 mg daily, continue carvedilol 6.25 mg twice daily GERD: Continue home PPI Severe protein calorie malnutrition: Patient is cachectic with BMI of 17. Will supplement with meals. Nutrition consulted. Exam Data for Last 24 hours Vital signs and Labs for Last 24 Hours: Temp Pulse Resp BP Pulse Ox O2 Del Method O2 Flow Rate 97.8 F 91 H 18 140/70 92 L Nasal Cannula 2 12/19/24 08:00 12/19/24 08:00 12/19/24 13:19 12/19/24 08:00 12/19/24 08:00 12/19/24 13:00 12/19/24 13:00 FiO2 35 12/18/24 11:25 Laboratory Results - last 24 hr 12/18/24 10:43: HCV Ab VEGA w/Rflx PCR Qn Negative, HIV Ag/Ab Combo Qual Negative 12/18/24 15:11: Chlamy pneumoniae PCR Not detected, Adenovirus (PCR) Not detected, B. pertussis DNA (PCR) Not detected, Coronavirus OC43 (PCR) Not detected, Coronavirus HKU1 (PCR) Not detected, Coronavirus 229E (PCR) Not detected, SARS-CoV-2 (PCR) Not detected, Coronavirus NL63 (PCR) Not detected, Human Metapneumovir PCR Not detected, Influenza A (H1) PCR Not detected, Influ A (H1N1/09) PCR Not detected, Influenza A (H3) PCR Not detected, Influenza Type A (PCR) Not detected, Influenza Type B (PCR) Not detected, M. pneumoniae (PCR) Not detected, Parainfluenza 1 (PCR) Not detected, Parainfluenza 2 (PCR) Not detected, Parainfluenza 3 (PCR) Not detected, Parainfluenza 4 (PCR) Not detected, RSV (PCR) Not detected, Entero/Rhino (PCR) Not detected 12/19/24 01:39: Urine Color Yellow, Urine Appearance Clear, Urine pH 6.5, Ur Specific [place] 1.015, Urine Protein Negative, Urine Glucose (UA) Negative, Urine Ketones Negative, Urine Blood Negative, Urine Nitrate Negative, Urine Bilirubin Negative, Urine Urobilinogen 0.2, Ur Leukocyte Esterase Trace, Urine WBC Occasional, Ur Squamous Epith Cells 3-5, Urine Bacteria Trace, Urine Sodium 52.0, Urine Opiates Screen Negative, Urine Methadone Screen Negative, Ur Barbituates Screen Negative, Ur Phencyclidine Scrn Negative, Ur Amphetamines Screen Negative, U Benzodiazepines Scrn Negative, Urine Cocaine Screen Negative, U Marijuana (THC) Screen Negative 12/19/24 05:43: WBC 6.0 D, RBC 2.94 L, Hgb 7.7 L D, Hct 23.9 L, MCV 81.3, MCH 26.2 L, MCHC 32.2, RDW 17.6 H, Plt Count 119 L, MPV 9.8, Neut % (Auto) 84.6 H, Lymph % (Auto) 8.2 L, [place] % (Auto) 5.0, Eos % (Auto) 0.0 L, Baso % (Auto) 0.2, Neut # (Auto) 5.0, Lymph # (Auto) 0.5 L, [place] # (Auto) 0.3, Eos # (Auto) 0.0, Baso # (Auto) 0.0, Sodium 126 L, Potassium 4.6, Chloride 92 L, Carbon Dioxide 32 H, Anion Gap 6.6, BUN 9, Creatinine 0.50 L, Estimated Creat Clear 43, Estimated GFR 124, Est GFR ( Amer) 150, Glucose 110 H D, Calcium 8.4, Magnesium 2.0 D, Total Bilirubin 0.1 L, AST 23, ALT 15, Alkaline Phosphatase 103, Total Protein 5.7 L, Albumin 2.7 L, Globulin 3.0, Albumin/Globulin Ratio 0.9 L I & O for Last 24 hours: Intake & Output 12/16/24 12/17/24 12/18/24 12/19/24 23:59 23:59 23:59 23:59 Intake Total 1788 Output Total 0 / 0 Balance 1788 Weight 46.266 kg 48.58 kg Constitutional Constitutional: no acute distress, cachectic, chronically ill appearing and cooperative *Routine HEENT Exam Head: Present normocephalic Eye: Present EOMI and PERRL ENT: Present mucous membranes moist *Routine Neck Exam Neck: Present supple; Absent lymphadenopathy *Routine Respiratory Exam Respiratory: Present crackles (Right lower lobe) and normal respiratory effort; Absent rhonchi or wheezes *Routine Cardiovascular Exam Cardiovascular: Present RRR *Routine Abdominal Exam Abdominal: Present soft and normoactive bowel sounds; Absent tenderness *Routine Rectal Exam Patient deferred: visual exam *Routine Exam Patient deferred: external exam *Routine Extremities Exam Extremities: Absent cyanosis, clubbing or edema *Routine Skin Exam Skin: Present warm; Absent rash *Routine Neurological Exam Neurological: Present alert, oriented X3 and moving all extremities; Absent altered mental status Results Data Completed and Pending Labs on day of discharge: Labs from last 24 hours 12/19/24 12/19/24 12/18/24 05:43 01:39 15:11 WBC 6.0 D RBC 2.94 L Hgb 7.7 L D Hct 23.9 L MCV 81.3 MCH 26.2 L MCHC 32.2 RDW 17.6 H Plt Count 119 L MPV 9.8 Neut % (Auto) 84.6 H Lymph % (Auto) 8.2 L [place] % (Auto) 5.0 Eos % (Auto) 0.0 L Baso % (Auto) 0.2 Neut # (Auto) 5.0 Lymph # (Auto) 0.5 L [place] # (Auto) 0.3 Eos # (Auto) 0.0 Baso # (Auto) 0.0 Sodium 126 L Potassium 4.6 Chloride 92 L Carbon Dioxide 32 H Anion Gap 6.6 BUN 9 Creatinine 0.50 L Estimated Creat Clear 43 Estimated GFR 124 Est GFR ( Amer) 150 Glucose 110 H D Calcium 8.4 Magnesium 2.0 D Total Bilirubin 0.1 L AST 23 ALT 15 Alkaline Phosphatase 103 Total Protein 5.7 L Albumin 2.7 L Globulin 3.0 Albumin/Globulin Ratio 0.9 L Urine Color Yellow Urine Appearance Clear Urine pH 6.5 Ur Specific [place] 1.015 Urine Protein Negative Urine Glucose (UA) Negative Urine Ketones Negative Urine Blood Negative Urine Nitrate Negative Urine Bilirubin Negative Urine Urobilinogen 0.2 Ur Leukocyte Esterase Trace Urine WBC Occasional Ur Squamous Epith Cells 3-5 Urine Bacteria Trace Urine Sodium 52.0 Urine Opiates Screen Negative Urine Methadone Screen Negative Ur Barbituates Screen Negative Ur Phencyclidine Scrn Negative Ur Amphetamines Screen Negative U Benzodiazepines Scrn Negative Urine Cocaine Screen Negative U Marijuana (THC) Screen Negative Chlamy pneumoniae PCR Not detected Adenovirus (PCR) Not detected B. pertussis DNA (PCR) Not detected Coronavirus OC43 (PCR) Not detected Coronavirus HKU1 (PCR) Not detected Coronavirus 229E (PCR) Not detected SARS-CoV-2 (PCR) Not detected Coronavirus NL63 (PCR) Not detected HCV Ab VEGA w/Rflx PCR Qn HIV Ag/Ab Combo Qual Human Metapneumovir PCR Not detected Influenza A (H1) PCR Not detected Influ A (H1N1/09) PCR Not detected Influenza A (H3) PCR Not detected Influenza Type A (PCR) Not detected Influenza Type B (PCR) Not detected M. pneumoniae (PCR) Not detected Parainfluenza 1 (PCR) Not detected Parainfluenza 2 (PCR) Not detected Parainfluenza 3 (PCR) Not detected Parainfluenza 4 (PCR) Not detected RSV (PCR) Not detected Entero/Rhino (PCR) Not detected 12/18/24 10:43 WBC RBC Hgb Hct MCV MCH MCHC RDW Plt Count MPV Neut % (Auto) Lymph % (Auto) [place] % (Auto) Eos % (Auto) Baso % (Auto) Neut # (Auto) Lymph # (Auto) [place] # (Auto) Eos # (Auto) Baso # (Auto) Sodium Potassium Chloride Carbon Dioxide Anion Gap BUN Creatinine Estimated Creat Clear Estimated GFR Est GFR ( Amer) Glucose Calcium Magnesium Total Bilirubin AST ALT Alkaline Phosphatase Total Protein Albumin Globulin Albumin/Globulin Ratio Urine Color Urine Appearance Urine pH Ur Specific [place] Urine Protein Urine Glucose (UA) Urine Ketones Urine Blood Urine Nitrate Urine Bilirubin Urine Urobilinogen Ur Leukocyte Esterase Urine WBC Ur Squamous Epith Cells Urine Bacteria Urine Sodium Urine Opiates Screen Urine Methadone Screen Ur Barbituates Screen Ur Phencyclidine Scrn Ur Amphetamines Screen U Benzodiazepines Scrn Urine Cocaine Screen U Marijuana (THC) Screen Chlamy pneumoniae PCR Adenovirus (PCR) B. pertussis DNA (PCR) Coronavirus OC43 (PCR) Coronavirus HKU1 (PCR) Coronavirus 229E (PCR) SARS-CoV-2 (PCR) Coronavirus NL63 (PCR) HCV Ab VEGA w/Rflx PCR Qn Negative HIV Ag/Ab Combo Qual Negative Human Metapneumovir PCR Influenza A (H1) PCR Influ A (H1N1/) PCR Influenza A (H3) PCR Influenza Type A (PCR) Influenza Type B (PCR) M. pneumoniae (PCR) Parainfluenza 1 (PCR) Parainfluenza 2 (PCR) Parainfluenza 3 (PCR) Parainfluenza 4 (PCR) RSV (PCR) Entero/Rhino (PCR) DS: Diagnosis Discharge Diagnosis (1) Pneumonia: Status: Acute Code(s): J18.9 - Pneumonia, unspecified organism Qualifiers: Aspiration pneumonia type: unspecified Laterality: right Lung location: lower lobe of lung Pneumonia type: aspiration pneumonia Qualified Code(s): J69.0 - Pneumonitis due to inhalation of food and vomit (2) Acute on chronic hypoxic respiratory failure: Status: Acute Code(s): J96.21 - Acute and chronic respiratory failure with hypoxia (3) Confusion: Status: Acute Code(s): R41.0 - Disorientation, unspecified (4) COPD (chronic obstructive pulmonary disease): Status: Chronic Code(s): J44.9 - Chronic obstructive pulmonary disease, unspecified Qualifiers: COPD type: unspecified COPD Qualified Code(s): J44.9 - Chronic obstructive pulmonary disease, unspecified (5) Smoking greater than 30 pack years: Status: Chronic Code(s): F17.210 - Nicotine dependence, cigarettes, uncomplicated (6) Severe protein-calorie malnutrition: Status: Acute Code(s): E43 - Unspecified severe protein-calorie malnutrition Meds Home Medications and Allergies Home Medications ?Medication ?Instructions ?Recorded ?Confirmed ?Type linaclotide 145 mcg capsule 145 mcg PO DAILY 01/16/22 12/18/24 History carvedilol 6.25 mg tablet 6.25 mg PO BID 12/18/24 12/18/24 History diclofenac sodium 75 mg 75 mg PO BID 12/18/24 12/18/24 History tablet,delayed release fluticasone fur. 200 mcg-umeclid 1 inh inhalation DAILY 12/18/24 12/18/24 History 62.5 mcg-vilant 25 mcg inhalat.powder (Trelegy Ellipta) fluticasone propionate 50 1 spray intranasal DAILY 12/18/24 12/18/24 History mcg/actuation nasal spray,suspension lisinopril 10 mg tablet 10 mg PO DAILY 12/18/24 12/18/24 History omeprazole 20 mg capsule,delayed 20 mg PO DAILY 12/18/24 12/18/24 History release potassium chloride 20 mEq 20 meq PO DAILY 12/18/24 12/18/24 History tablet,extended release(part/cryst) rosuvastatin 10 mg tablet 10 mg PO HS 12/18/24 12/18/24 History amoxicillin 500 mg-potassium 1 tab PO TID 5 days #15 tabs 12/19/24 Rx clavulanate 125 mg tablet (Augmentin) nystatin 100,000 unit/mL oral 500,000 unit (5 mL) PO QID 10 days 12/19/24 Rx suspension #200 mL New Prescriptions to Start Prescriptions: amoxicillin-pot clavulanate [Augmentin] Yosvany Huber James Allergies Allergy/AdvReac Type Severity Reaction Status Date / Time No Known Allergies Allergy Verified 06/26/22 16:13 Discharge Plan Disposition Patient Disposition: Home, Self-Care Condition: Fair Discharge Order Discharge Orders: Discharge Order (Routine); Ordered 12/19/24 Ordered By: Yosvany Huber Follow up Plan Follow up with: Debora Mckeon [Primary Care Provider] - 12/26/24 9:15 am Prescriptions/Medication Reconciliation: New nystatin 100,000 unit/mL Suspension 500,000 unit PO QID 10 Days Qty: 200 0RF amoxicillin-pot clavulanate [Augmentin] 500-125 mg tablet 1 tab PO TID 5 Days Qty: 15 0RF Continued linaclotide 145 MCG capsule 145 mcg PO DAILY carvedilol 6.25 mg tablet 6.25 mg PO BID Patient Comments: TAKE 1 TABLET BY MOUTH TWICE DAILY WITH FOOD omeprazole 20 mg capsule,delayed release(DR/EC) 20 mg PO DAILY Patient Comments: TAKE 1 CAPSULE BY MOUTH ONCE DAILY AROUND THE CLOCK rosuvastatin 10 mg tablet 10 mg PO HS Patient Comments: TAKE 1 TABLET BY MOUTH ONCE DAILY Trelegy Ellipta 200-62.5-25 mcg blister with device 1 inh INHALATION DAILY Patient Comments: INHALE 1 PUFF ONCE DAILY potassium chloride 20 mEq tablet,ER particles/crystals 20 meq PO DAILY Patient Comments: TAKE 1 TABLET BY MOUTH ONCE DAILY lisinopril 10 mg tablet 10 mg PO DAILY Patient Comments: TAKE 1 TABLET BY MOUTH ONCE DAILY fluticasone propionate 50 mcg/actuation spray,suspension 1 spray INTRANASAL DAILY Patient Comments: USE 1 SPRAY(S) IN EACH NOSTRIL ONCE DAILY diclofenac sodium 75 mg tablet,delayed release (DR/EC) 75 mg PO BID Patient Comments: TAKE 1 TABLET BY MOUTH TWICE DAILY WITH FOOD OR MILK Other Ambulatory Orders: Home Medical Equipment (Routine) Location: None Selected Ordered By: Yosvany Huber Problem Reconciliation Problems Reviewed?: Yes Patient Discharge Instructions ACTIVITY: Continue current activity DIET: continue same diet and other Additional Instructions: Mechanical soft diet Patient Instructions: DI for Chronic Obstructive Pulmonary Disease, DI for Pneumonia -- Adult Print Language: Icelandic Providers Primary Care Provider: Debora Mckeon Admit Provider: Yosvany Huber Attending Provider: Yosvany Huber
--- NOTE | 2024-12-19 15:31 | SW/DCPLANNER ---
Patient was already on home o2 and was already a member sent patients info over to [facility] for her acccount could be updated. Martha Hussein
--- NOTE | 2024-12-23 10:43 | SW/DCPLANNER ---
Spoke with patient on the phone. Patient stated that she is doing pretty good. Patient stated that she did not know she had an upcoming appointment this Sunday. Patient stated that she did get her new medicine picked up from clinic pharmacy. Patient stated that she has no concerns or questions at this time. Martha Hussein
== END 2024-12-19 15:20 | disposition home or self-care (01) | DRG 189 ==
LOC: ER 09:57 → 2ND 13:58
PROVIDERS: Admitting Provider Internal Medicine Adolescent Medicine; Emergency Provider Emergency Medicine; PCP Nurse Practitioner Family; Visit Provider Internal Medicine Adolescent Medicine
DX: J96.21 Acute and chronic respiratory failure with hypoxia (principal); J18.9 Pneumonia, unspecified organism; E43 Unspecified severe protein-calorie malnutrition; Z68.1 Body mass index [BMI] 19.9 or less, adult; E87.1 Hypo-osmolality and hyponatremia; J44.0 Chronic obstructive pulmonary disease with (acute) lower respiratory infection; F17.210 Nicotine dependence, cigarettes, uncomplicated; E78.5 Hyperlipidemia, unspecified; K21.9 Gastro-esophageal reflux disease without esophagitis; I10 Essential (primary) hypertension; I25.10 Atherosclerotic heart disease of native coronary artery without angina pectoris; Z95.5 Presence of coronary angioplasty implant and graft; Z79.899 Other long term (current) drug therapy
CPT/HCPCS: 36415; 70450; 71045; 80053; 80307; 81001; 82140; 82803; 83735; 84145; 84439; 84443; 84540; 85025; 86803; 87086; 87088; 87186; 87389; 87633; 92610; 93005; 94640; 99291; J0456; J0696; J1650; J2919; J3475; J7030; J7050; J7620

== ENCOUNTER 2024-12-25 13:42 | Inpatient (IN) | payer MEDICARE, SELFPAY ==
[2024-12-25] VITALS (26 sets, daily range): BP systolic 77–133; BP diastolic 38–64; PULSE 65–83; RESP 12–30; TEMP 34.4–37; O2SAT 78–99; BMI 16.6; BMI 17.8
--- NOTE | 2024-12-25 13:50 | PC.NURSE ---
1348 Pt taken to room 8 placed on6L NC due to O2 saturation of 76% noted in triage. NCT notified of need to perform EKG. Lyric RN notified of patient arrival.
--- NOTE | 2024-12-25 13:54 | CT_ITS ---
FINAL REPORT TECHNIQUE: IV contrast enhanced exam This study was performed with techniques to keep radiation doses as low as reasonably achievable, (ALARA). Individualized dose reduction techniques using automated exposure control or adjustment of mA and/or kV according to the patient''s size were employed. CLINICAL HISTORY: abdominal distension, pain COMPARISON: 01/15/2022 FINDINGS: Abdomen: The gallbladder is unremarkable. There is a 24 mm liver mass, faintly evident from prior exam performed in 2021 consistent with benign etiology. The spleen, pancreas and adrenal glands are unremarkable. Kidneys show no mass or obstruction. The left kidney is severely atrophic. Significant calcified plaque is seen of the aorta and branch vessels. There are chronic changes of discitis at L2-3. There is fluid-filled colon which could represent colitis or ileus. There is no evidence of obstruction. Pelvis: There is severely distended urinary bladder. Trace pelvic free fluid is seen. There is pelvic floor prolapse. No adnexal mass is identified. IMPRESSION: Fluid-filled bowel which may be seen with enterocolitis or ileus. Severely distended urinary bladder with pelvic floor prolapse. No free air or free fluid. Other chronic changes as above. Reviewed, Interpreted and Dictated by Sunni Quesada MD Transcribed by Janie Live Authenticated and [facility]
--- NOTE | 2024-12-25 13:54 | CT_ITS ---
FINAL REPORT TECHNIQUE: Thin section axial CT with contrast with multiplanar reconstruction This study was performed with techniques to keep radiation doses as low as reasonably achievable, (ALARA). Individualized dose reduction techniques using automated exposure control or adjustment of mA and/or kV according to the patient''s size were employed. CLINICAL HISTORY: resp failure, recent PNA COMPARISON: 07/04/2022 FINDINGS: Pulmonary vessels enhance in normal fashion without evidence of embolism. There is extensive right lower lobe infiltrate consistent with pneumonia. There is left lower lobe atelectasis. Upper lobes are clear. There are emphysematous changes. There is moderate right hilar adenopathy. A right infrahilar lymph node is seen measuring up to 25 mm. There is left paratracheal adenopathy measuring up to 18 mm. In AP window lymph node is seen measuring up to 17 mm. Thoracic aorta without dissection or aneurysm. The mid ascending aorta measures 38 mm. There is no pleural or pericardial effusion. A mild compression fracture is seen of the T9 vertebral body which is new from prior exam, favor chronic. IMPRESSION: 1. No evidence of pulmonary embolism 2. Extensive right lower lobe pneumonia. 3. Nonspecific adenopathy which could be reactive. However, neoplastic etiology is not excluded. Recommend 3-month follow-up. Reviewed, Interpreted and Dictated by Sunni Quesada MD Transcribed by Janie Live Authenticated and [facility]
--- NOTE | 2024-12-25 13:59 | ECG_ITS ---
APPROVED REPORT Exam: Resting ECG HR:75 bpm ECG Measurements Heart Rate 75 AXES LA 222 P 42 QRSd 102 QRS 47 QT 407 T 80 QTc 436 Conclusion SINUS RHYTHM WITH FIRST DEGREE AV BLOCK POSSIBLE RIGHT VENTRICULAR CONDUCTION DELAY [RSR (QR) IN V1/V2] VOLTAGE CRITERIA FOR LVH [MEETS CRITERIA IN ONE OF: R(aVL), S(V1), R(V5), R(V5/V6)+S(V1)] MODERATE ST DEPRESSION [0.05+ mV ST DEPRESSION] ABNORMAL ECG Significant chatter Electronically signed by : VAUGHN RAMIRES, 12/26/2024 09:26:15
--- NOTE | 2024-12-25 14:01 | HMH.EDGENADL ---
Discharge Plan Disposition Patient Disposition: Admitted Chief Complaint: Shortness of Breath/Dyspnea Prescriptions Prescriptions: No Action linaclotide 145 MCG capsule 145 mcg PO DAILY carvedilol 6.25 mg tablet 6.25 mg PO BID Patient Comments: TAKE 1 TABLET BY MOUTH TWICE DAILY WITH FOOD omeprazole 20 mg capsule,delayed release(DR/EC) 20 mg PO DAILY Patient Comments: TAKE 1 CAPSULE BY MOUTH ONCE DAILY AROUND THE CLOCK rosuvastatin 10 mg tablet 10 mg PO HS Patient Comments: TAKE 1 TABLET BY MOUTH ONCE DAILY Trelegy Ellipta 200-62.5-25 mcg blister with device 1 inh INHALATION DAILY Patient Comments: INHALE 1 PUFF ONCE DAILY potassium chloride 20 mEq tablet,ER particles/crystals 20 meq PO DAILY Patient Comments: TAKE 1 TABLET BY MOUTH ONCE DAILY lisinopril 10 mg tablet 10 mg PO DAILY Patient Comments: TAKE 1 TABLET BY MOUTH ONCE DAILY fluticasone propionate 50 mcg/actuation spray,suspension 1 spray INTRANASAL DAILY Patient Comments: USE 1 SPRAY(S) IN EACH NOSTRIL ONCE DAILY diclofenac sodium 75 mg tablet,delayed release (DR/EC) 75 mg PO BID Patient Comments: TAKE 1 TABLET BY MOUTH TWICE DAILY WITH FOOD OR MILK nystatin 100,000 unit/mL Suspension 500,000 unit PO QID 10 Days Qty: 200 0RF Referrals Follow up/Referrals: Debora Mckeon [Primary Care Provider] - See instructions Clinical Impressions Clinical Impression: Adult failure to thrive, Right lower lobe pneumonia, Acute urinary retention Print Language Print Language: Occitan Discharge ED Provider: Merlin Espinosa General Adult HPI <Linda Carmona DO - Last Filed: 12/25/24 16:02> General Chief complaint: Shortness of Breath/Dyspnea Stated complaint: SOA, Low O2, weakness Time Seen by Provider: 12/25/24 13:51 History of Present Illness HPI narrative: This patient is a 64-year-old female with a history of COPD, protein calorie malnutrition, tobacco dependence, recent admission for pneumonia/respiratory failure presented to the emergency department for evaluation with concern for shortness of breath, fatigue, abdominal distention/bloating, poor appetite, generally feeling unwell. Her states that he is worried because she had initially done well after being discharged from the hospital about a week ago, but now she is acutely doing worse again. He states that she is tired, irritable, has no energy, has no appetite, and will not eat or drink. Patient states that she has no specific concerns or complaints except that she has not felt well for a while. Related Data Home Medications ?Medication ?Instructions ?Recorded ?Confirmed linaclotide 145 mcg capsule 145 mcg PO DAILY 01/16/22 12/25/24 carvedilol 6.25 mg tablet 6.25 mg PO BID 12/18/24 12/25/24 diclofenac sodium 75 mg 75 mg PO BID 12/18/24 12/25/24 tablet,delayed release fluticasone fur. 200 mcg-umeclid 1 inh inhalation DAILY 12/18/24 12/25/24 62.5 mcg-vilant 25 mcg inhalat.powder (Trelegy Ellipta) fluticasone propionate 50 1 spray intranasal DAILY 12/18/24 12/25/24 mcg/actuation nasal spray,suspension lisinopril 10 mg tablet 10 mg PO DAILY 12/18/24 12/25/24 omeprazole 20 mg capsule,delayed 20 mg PO DAILY 12/18/24 12/25/24 release potassium chloride 20 mEq 20 meq PO DAILY 12/18/24 12/25/24 tablet,extended release(part/cryst) rosuvastatin 10 mg tablet 10 mg PO HS 12/18/24 12/25/24 Previous Rx's ?Medication ?Instructions ?Recorded nystatin 100,000 unit/mL oral 500,000 unit (5 mL) PO QID 10 days 12/19/24 suspension #200 mL Allergies Allergy/AdvReac Type Severity Reaction Status Date / Time No Known Allergies Allergy Verified 12/25/24 15:02 [facility] <Linda Carmona DO - Last Filed: 12/25/24 16:02> [facility] Disclaimer: The information contained in this section may have been updated after the patient was seen, as this information can be updated by other users. Medical History Encounter for screening for malignant neoplasm of lung in current smoker with 30 pack year history or greater Pleural thickening Lung nodule Tobacco abuse disorder Tobacco abuse counseling COPD (chronic obstructive pulmonary disease) Smoking greater than 30 pack years Dyspnea on exertion Surgical History Previous back surgery Family History Other No significant family history Social History Smoking Status: Current every day smoker tobacco type: cigarettes packs per day: 3 alcohol intake: never current occupational status: disabled Travel in the last 8 weeks: None household members: significant other housing: house caffeine: Yes Have you lived/traveled outside [place] in past 30 days?: No Contact w/someone who lives/traveled outside US past 30 days?: No Exposure to someone with infectious disease in past 14 days?: No Do you have a fever (greater than 100.4 F or 38 C)?: No Have you tested positive for COVID-19: No Exposed to someone with COVID-19 in past 14 days?: No Do you have a sore throat?: No Do you have a cough?: No Do you have any weakness?: Yes Do you have any diarrhea?: No Are you experiencing any unusual bleeding?: No Do you have any muscle aches/pain?: No Do you have any abdominal pain?: No Are you experiencing loss of taste or smell?: No Other Medical History Have you received the Flu Vaccine for this season: No Have you received the Pneumonia Vaccine: No <Linda Carmona DO - Last Filed: 12/25/24 16:02> ROS Obtained: Yes All systems reviewed & no additional complaints except as documented Physical Exam <Linda Carmona DO - Last Filed: 12/25/24 16:02> General General appearance: alert, in no apparent distress and cachectic Comment: Thin, frail, chronically ill-appearing Head Head exam: atraumatic and normocephalic Eye Eye exam: Present normal appearance, PERRL and EOMI ENT ENT exam: Present normal exam, normal oropharynx, mucous membranes moist and normal external ear exam Neck Neck exam: Present normal inspection, full ROM and trachea midline; Absent tenderness Chest Chest inspection: Present normal inspection and symmetric chest wall rise; Absent tenderness Respiratory Respiratory exam: Present other (ronchi bilaterally, harsh wet cough); Absent respiratory distress, wheezes, stridor or accessory muscle use Cardiovascular Cardiovascular exam: Present regular rate and normal rhythm Abdominal Exam Abdominal exam: Present soft, distention and tenderness; Absent guarding, rebound or rigidity Extremities Exam Extremities exam: Present normal inspection, full ROM and normal capillary refill; Absent tenderness or edema Back Exam Back exam: Present normal inspection and full ROM; Absent tenderness Neurological Exam Neurological exam: Present alert, oriented X3, CN II-XII intact and normal gait; Absent motor sensory deficit Psychiatric Psychiatric exam: Present normal affect and normal mood Skin Skin exam: Present warm and dry Medical Decision Making <Linda Jaycob Carmona DO - Last Filed: 12/25/24 16:02> Medical Records Medical records reviewed: Yes I reviewed the patient's medical records. Screening: Per USPSTF and CDC recommendations, given the prevalence of disease in our region, it is our hospital?s policy to screen for HIV and viral Hepatitis for all patients aged 18 and over and those with ongoing risk factors. Kayden Inquiry Pt receiving controlled substance: No Vital Signs: 12/25/24 13:42 12/25/24 14:10 12/25/24 14:30 Temperature 98.6 F Temperature Source Oral Pulse Rate 77 78 Pulse Rate [Right Radial] 79 Respiratory Rate 30 H 14 14 Blood Pressure 113/59 L 116/50 L Blood Pressure [Right Arm] 113/59 L Blood Pressure Mean 73 Blood Pressure Mean [Right Arm] 77 02 Sat by Pulse Oximetry 78 L 98 98 Oxygen Delivery Method Room Air Room Air 12/25/24 15:00 12/25/24 16:00 12/25/24 16:30 Temperature Temperature Source Pulse Rate 75 80 80 Pulse Rate [Right Radial] Respiratory Rate 15 15 15 Blood Pressure 123/60 110/59 L 121/52 L Blood Pressure [Right Arm] Blood Pressure Mean Blood Pressure Mean [Right Arm] 02 Sat by Pulse Oximetry 99 95 91 L Oxygen Delivery Method Room Air Room Air Room Air Lab Data Lab results reviewed: Yes I reviewed the patient's lab results. Lab Results 12/25/24 14:17: SARS-CoV-2 (PCR) Not detected, Influenza A Untype (PCR) Not detected, Influenza Type B (PCR) Not detected 12/25/24 14:35: VBG pH 7.35, VBG pCO2 54.9 H, VBG pO2 42.0 H, VBG HCO3 29.4, VBG Total CO2 31.0 H, VBG O2 Saturation 75.5 H, VBG Base Excess 3.7 H, VBG Lactic Acid 0.9 12/25/24 14:37: WBC 8.1, RBC 3.29 L, Hgb 8.6 L, Hct 26.9 L, MCV 81.8, MCH 26.1 L, MCHC 32.0, RDW 18.0 H, Plt Count 100 L, MPV 11.0 H, Neut % (Auto) 89.4 H, Lymph % (Auto) 5.5 L, [place] % (Auto) 4.1, Eos % (Auto) 0.2, Baso % (Auto) 0.1, Neut # (Auto) 7.3, Lymph # (Auto) 0.5 L, [place] # (Auto) 0.3, Eos # (Auto) 0.0, Baso # (Auto) 0.0, PT 10.8, INR 0.98, Sodium 125 L, Potassium 4.2, Chloride 89 L, Carbon Dioxide 34 H, Anion Gap 6.2, BUN 12, Creatinine 0.40 L, Estimated Creat Clear 40, Estimated GFR 160, Est GFR ( Amer) 194, Glucose 71 L, Calcium 8.6, Phosphorus 3.2, Magnesium 1.6, Total Bilirubin 0.2, AST 26, ALT 18, Alkaline Phosphatase 85, Troponin I < 0.01, NT-Pro-B Natriuret Pep 2070 H, Total Protein 5.8 L, Albumin 2.8 L, Globulin 3.0, Albumin/Globulin Ratio 0.9 L, TSH 1.44, Thyroxine (T4) 13.0 H 12/25/24 16:30: Urine Color Yellow, Urine Appearance Clear, Urine pH 6.5, Ur Specific [place] 1.010, Urine Protein Negative, Urine Glucose (UA) Negative, Urine Ketones Negative, Urine Blood Negative, Urine Nitrate Negative, Urine Bilirubin Negative, Urine Urobilinogen 0.2, Ur Leukocyte Esterase Negative 12/25/24 14:37 12/25/24 14:37 Orders (Tests/Meds): ED MEDICATIONS Generic Name Dose Route Start Last Admin Trade Name Freq PRN Reason Stop Dose Admin Sodium Chloride 3 ml 12/25/24 13:57 Sodium Chloride 3% 15ml [facility] 01/24/25 13:56 ONCE PRN INDUCE SPUTUM COLLECTION Discontinued Medications Generic Name Dose Route Start Last Admin Trade Name Freq PRN Reason Stop Dose Admin Albuterol/Ipratropium 3 ml 12/25/24 13:57 12/25/24 14:49 Ipratropium/Albuterol 3 Ml [facility] 12/25/24 13:58 3 ml ONCE ONE Administration Lactated Ringer's 1,000 mls @ 999 mls/hr 12/25/24 14:05 12/25/24 14:49 Lactated Ringer's 1000 Ml Bag IV 12/25/24 15:05 999 mls/hr .Q1H1M ONE Administration Ceftriaxone Sodium 2 gm/ 100 mls @ 200 mls/hr 12/25/24 16:18 Sodium Chloride IV 12/25/24 16:47 ONCE ONE Azithromycin 500 mg/ Sodium 250 mls @ 250 mls/hr 12/25/24 16:18 12/25/24 16:55 Chloride IV 12/25/24 16:19 250 mls/hr ONCE ONE Administration Iopamidol 80 ml 12/25/24 15:33 12/25/24 15:34 Iopamidol-370 (76%);100ml Bottle IV 12/25/24 15:34 80 ml ONCE ONE Administration Sodium Chloride 10 ml 12/25/24 15:33 12/25/24 15:34 Sodium Chloride 0.9% 10ml Syr (Rad Only) IV 12/25/24 15:34 10 ml ONCE ONE Administration Sodium Chloride 50 ml 12/25/24 15:33 12/25/24 15:34 0.9 % Sodium Chloride 50 Ml Vial IV 12/25/24 15:34 50 ml ONCE ONE Administration ORDERS Category Date Time Status CT abdomen pelvis w con Stat Cat Scan 12/25/24 13:[address] angio chest PE protocol Stat Cat Scan 12/25/24 13:54 Completed BNP [NT Pro Brain Natriuretic Pep.] Stat Lab 12/25/24 14:37 Completed Complete Blood Count Auto Diff Stat Lab 12/25/24 14:37 Completed Comprehensive Metabolic Panel Stat Lab 12/25/24 14:37 Completed MAG [Magnesium] Stat Lab 12/25/24 14:37 Completed PHOS [Phosphorous] Stat Lab 12/25/24 14:37 Completed Prothrombin Time INR Stat Lab 12/25/24 14:37 Completed Rapid PCR Covid and Flu A/B Stat Lab 12/25/24 14:17 Completed T4 (Thyroxine) Stat Lab 12/25/24 14:37 Completed TSH [Thyroid Stimulating Hormone] Stat Lab 12/25/24 14:37 Completed Trop I [Troponin I] Stat Lab 12/25/24 14:37 Completed Troponin I Q3H Lab 12/25/24 17:00 Ordered Troponin I Q3H Lab 12/25/24 20:00 Ordered UA [Urinalysis and Microscopic] Stat Lab 12/25/24 16:30 Results Blood Culture Stat Micro 12/25/24 14:37 Received Sputum Culture & Gram Stain Stat Micro 12/25/24 16:10 Received VBG [Venous Blood Gas] Stat RT 12/25/24 14:35 Completed ECG Data Tracing #1: I reviewed this ECG and interpreted as documented below: Normal sinus rhythm with first-degree AV block with a HI interval of treatment and [address] changes concerning for STEMI. Motion artifact degraded study. ECG initial impression date: 12/25/24 ECG initial impression time: 14:01 Medical Decision Narrative: In summary, this patient is a 64-year-old female presenting to the Emergency Department for evaluation of fatigue, general weakness, poor appetite, generally feeling unwell, irritability, abdominal distention. Differential diagnoses considered include but are not limited to dehydration, electrolyte derangements, THUAN, UTI, constipation, fecal impaction, malignancy, pneumonia. Ruling out the most morbid conditions drove assessment. It should be noted patient's history includes tobacco abuse, COPD, malnutrition which are not at goal therapy. This complicates all aspects of care by increasing patient's risk for morbidity. I reviewed patient's past medical records and noted recent admission for acute on chronic respiratory failure in the setting of pneumonia as detailed in HPI. On exam, the patient is chronically ill-appearing, cachectic, looks slightly jaundiced. She has abdominal distention with tenderness, coarse rhonchi, harsh cough. She is neurologically intact. Workup included labs to evaluate for infectious, metabolic, cardiac etiologies of her symptoms as well as CTA chest PE protocol, CT abdomen pelvis with IV contrast. She was given a DuoNeb as well as a bolus of IV fluids to assess for symptomatic improvement. Labs obtained demonstrated chronic anemia, which is actually improved from prior. She has chronic hyponatremia without significant change from prior. BNP is around her prior. Kidney function is around her prior. She is negative for COVID and flu. Patient care was signed out to the oncoming provider, Dr. Espinosa, pending CT's and disposition. <Merlin Espinosa MD - Last Filed: 12/25/24 17:09> Vital Signs: 12/25/24 13:42 12/25/24 14:10 12/25/24 14:30 Temperature 98.6 F Temperature Source Oral Pulse Rate 77 78 Pulse Rate [Right Radial] 79 Respiratory Rate 30 H 14 14 Blood Pressure 113/59 L 116/50 L Blood Pressure [Right Arm] 113/59 L Blood Pressure Mean 73 Blood Pressure Mean [Right Arm] 77 02 Sat by Pulse Oximetry 78 L 98 98 Oxygen Delivery Method Room Air Room Air 12/25/24 15:00 12/25/24 16:00 12/25/24 16:30 Temperature Temperature Source Pulse Rate 75 80 80 Pulse Rate [Right Radial] Respiratory Rate 15 15 15 Blood Pressure 123/60 110/59 L 121/52 L Blood Pressure [Right Arm] Blood Pressure Mean Blood Pressure Mean [Right Arm] 02 Sat by Pulse Oximetry 99 95 91 L Oxygen Delivery Method Room Air Room Air Room Air Lab Data Lab Results 12/25/24 14:17: SARS-CoV-2 (PCR) Not detected, Influenza A Untype (PCR) Not detected, Influenza Type B (PCR) Not detected 12/25/24 14:35: VBG pH 7.35, VBG pCO2 54.9 H, VBG pO2 42.0 H, VBG HCO3 29.4, VBG Total CO2 31.0 H, VBG O2 Saturation 75.5 H, VBG Base Excess 3.7 H, VBG Lactic Acid 0.9 12/25/24 14:37: WBC 8.1, RBC 3.29 L, Hgb 8.6 L, Hct 26.9 L, MCV 81.8, MCH 26.1 L, MCHC 32.0, RDW 18.0 H, Plt Count 100 L, MPV 11.0 H, Neut % (Auto) 89.4 H, Lymph % (Auto) 5.5 L, [place] % (Auto) 4.1, Eos % (Auto) 0.2, Baso % (Auto) 0.1, Neut # (Auto) 7.3, Lymph # (Auto) 0.5 L, [place] # (Auto) 0.3, Eos # (Auto) 0.0, Baso # (Auto) 0.0, PT 10.8, INR 0.98, Sodium 125 L, Potassium 4.2, Chloride 89 L, Carbon Dioxide 34 H, Anion Gap 6.2, BUN 12, Creatinine 0.40 L, Estimated Creat Clear 40, Estimated GFR 160, Est GFR ( Amer) 194, Glucose 71 L, Calcium 8.6, Phosphorus 3.2, Magnesium 1.6, Total Bilirubin 0.2, AST 26, ALT 18, Alkaline Phosphatase 85, Troponin I < 0.01, NT-Pro-B Natriuret Pep 2070 H, Total Protein 5.8 L, Albumin 2.8 L, Globulin 3.0, Albumin/Globulin Ratio 0.9 L, TSH 1.44, Thyroxine (T4) 13.0 H 12/25/24 16:30: Urine Color Yellow, Urine Appearance Clear, Urine pH 6.5, Ur Specific [place] 1.010, Urine Protein Negative, Urine Glucose (UA) Negative, Urine Ketones Negative, Urine Blood Negative, Urine Nitrate Negative, Urine Bilirubin Negative, Urine Urobilinogen 0.2, Ur Leukocyte Esterase Negative Orders (Tests/Meds): ED MEDICATIONS Generic Name Dose Route Start Last Admin Trade Name Freq PRN Reason Stop Dose Admin Sodium Chloride 3 ml 12/25/24 13:57 Sodium Chloride 3% 15ml [facility] 01/24/25 13:56 ONCE PRN INDUCE SPUTUM COLLECTION Discontinued Medications Generic Name Dose Route Start Last Admin Trade Name Freq PRN Reason Stop Dose Admin Albuterol/Ipratropium 3 ml 12/25/24 13:57 12/25/24 14:49 Ipratropium/Albuterol 3 Ml [facility] 12/25/24 13:58 3 ml ONCE ONE Administration Lactated Ringer's 1,000 mls @ 999 mls/hr 12/25/24 14:05 12/25/24 14:49 Lactated Ringer's 1000 Ml Bag IV 12/25/24 15:05 999 mls/hr .Q1H1M ONE Administration Ceftriaxone Sodium 2 gm/ 100 mls @ 200 mls/hr 12/25/24 16:18 Sodium Chloride IV 12/25/24 16:47 ONCE ONE Azithromycin 500 mg/ Sodium 250 mls @ 250 mls/hr 12/25/24 16:18 12/25/24 16:55 Chloride IV 12/25/24 16:19 250 mls/hr ONCE ONE Administration Iopamidol 80 ml 12/25/24 15:33 12/25/24 15:34 Iopamidol-370 (76%);100ml Bottle IV 12/25/24 15:34 80 ml ONCE ONE Administration Sodium Chloride 10 ml 12/25/24 15:33 12/25/24 15:34 Sodium Chloride 0.9% 10ml Syr (Rad Only) IV 12/25/24 15:34 10 ml ONCE ONE Administration Sodium Chloride 50 ml 12/25/24 15:33 12/25/24 15:34 0.9 % Sodium Chloride 50 Ml Vial IV 12/25/24 15:34 50 ml ONCE ONE Administration ORDERS Category Date Time Status CT abdomen pelvis w con Stat Cat Scan 12/25/24 13:[address] angio chest PE protocol Stat Cat Scan 12/25/24 13:54 Completed BNP [NT Pro Brain Natriuretic Pep.] Stat Lab 12/25/24 14:37 Completed Complete Blood Count Auto Diff Stat Lab 12/25/24 14:37 Completed Comprehensive Metabolic Panel Stat Lab 12/25/24 14:37 Completed MAG [Magnesium] Stat Lab 12/25/24 14:37 Completed PHOS [Phosphorous] Stat Lab 12/25/24 14:37 Completed Prothrombin Time INR Stat Lab 12/25/24 14:37 Completed Rapid PCR Covid and Flu A/B Stat Lab 12/25/24 14:17 Completed T4 (Thyroxine) Stat Lab 12/25/24 14:37 Completed TSH [Thyroid Stimulating Hormone] Stat Lab 12/25/24 14:37 Completed Trop I [Troponin I] Stat Lab 12/25/24 14:37 Completed Troponin I Q3H Lab 12/25/24 17:00 Ordered Troponin I Q3H Lab 12/25/24 20:00 Ordered UA [Urinalysis and Microscopic] Stat Lab 12/25/24 16:30 Results Blood Culture Stat Micro 12/25/24 14:37 Received Sputum Culture & Gram Stain Stat Micro 12/25/24 16:10 Received VBG [Venous Blood Gas] Stat RT 12/25/24 14:35 Completed Medical Decision Narrative: In summary, this patient is a 64-year-old female presenting to the Emergency Department for evaluation of fatigue, general weakness, poor appetite, generally feeling unwell, irritability, abdominal distention. Differential diagnoses considered include but are not limited to dehydration, electrolyte derangements, THUAN, UTI, constipation, fecal impaction, malignancy, pneumonia. Ruling out the most morbid conditions drove assessment. It should be noted patient's history includes tobacco abuse, COPD, malnutrition which are not at goal therapy. This complicates all aspects of care by increasing patient's risk for morbidity. I reviewed patient's past medical records and noted recent admission for acute on chronic respiratory failure in the setting of pneumonia as detailed in HPI. On exam, the patient is chronically ill-appearing, cachectic, looks slightly jaundiced. She has abdominal distention with tenderness, coarse rhonchi, harsh cough. She is neurologically intact. Workup included labs to evaluate for infectious, metabolic, cardiac etiologies of her symptoms as well as CTA chest PE protocol, CT abdomen pelvis with IV contrast. She was given a DuoNeb as well as a bolus of IV fluids to assess for symptomatic improvement. Labs obtained demonstrated chronic anemia, which is actually improved from prior. She has chronic hyponatremia without significant change from prior. BNP is around her prior. Kidney function is around her prior. She is negative for COVID and flu. Patient care was signed out to the oncoming provider, Dr. Espinosa, pending CT's and disposition. Francisca: I assumed primary responsibility for this patient after signout from previous physician. On my evaluation, patient lethargic, falling asleep midsentence. Stating she has no complaints. Abdomen is distended, likely secondary to distended bladder. Ramos catheter was placed. Independent interpretation of workup, patient has stably low hemoglobin and steadily worsening thrombocytopenia. VBG nonactionable with chronic findings and normal pH. Patient has stable a chronic hyponatremia 125, normal kidney function. BNP elevated at 2000, troponin negative albumin low at 2.8 consistent with malnutrition. Patient's urine without UTI. COVID swab negative. Regarding CT abdomen and pelvis. Patient does have distended loops of bowel consistent with enteritis. Patient states that she has had diarrhea over the past couple of months, unknown what is causing it. also states that patient has had productive cough this been worsening since her admission and discharge. On independent interpretation of patient's CT, patient has large right lower lobe pneumonia. Placed on azithromycin and ceftriaxone for this. Because patient unable to perform ADLs at home, states that she has not even been able to walk given her weakness. Constellation of symptoms, numerous metabolic abnormalities and large right lower lobe pneumonia, patient unsafe for home-going. Hospital medicine was contacted and case was discussed, agreeable to admission. Patient will likely need placement given trajectory that she is on. Because patient high risk for clinical decompensation, deemed appropriate for inpatient admission. Results were relayed to patient who voiced understanding and patient was agreeable to inpatient admission and management. Patient was admitted to the hospital for further definitive management. Critical Care <Linda Carmona, DO - Last Filed: 12/25/24 16:02> Critical Care Time Critical Care Time: No
--- NOTE | 2024-12-25 14:18 | PC.NURSE ---
Patients swab was sent to lab at 1417. fausto was also made aware that we need a UA as soon as she is able.
[2024-12-25 14:21] LABS: Coronavirus 19, PCR Not Detected (NotDetected); Influenza A, PCR Not Detected (NotDetected); Influenza B, PCR Not Detected (NotDetected)
--- NOTE | 2024-12-25 14:41 | PC.NURSE ---
ROUNDED ON THE PT. THE PT VOICES THAT SHE DOES NOT NEED ANYTHING AT THIS TIME. CALL LIGHT IS WITHIN REACH OF THE PT. FAMILY MEMBER IS PRESENT AT THE BEDSIDE.
[2024-12-25 14:48] LABS: Lactate Venous 0.9 mmol/L (0.4-2.0); VBG Base Excess 3.7 mmol/L (-2.4-2.3); VBG HCO3 29.4 mmol/L (23-30); VBG Oxygen Saturation 75.5 % (50-70); VBG PH 7.35 mmol/L (7.31-7.41)
[2024-12-25] MEDS: IPRATROPIUM/ALBUTEROL 3 ML NEB IH (14:49)
[2024-12-25] MEDS: LACTATED RINGERS 1000ML 1,000 ML 999 ML IV (14:49)
[2024-12-25 14:51] LABS: Basophils % 0.1 % (0.1-2.0); Eosinophils % 0.2 % (0.1-12.0); Hematocrit 26.9 % (37.0-47.0); Hemoglobin 8.6 g/dL (12.2-16.2); Lymphocytes # 0.5 K/mm3 (0.7-4.5); Lymphocytes % 5.5 % (10-50); Mean Corpuscular Hemoglobin 26.1 pg (27.0-31.2); Mean Corpuscular Volume 81.8 fl (81-99); Monocytes # 0.3 K/mm3 (0.1-1.0); Monocytes % 4.1 % (1.7-9.3); Neutrophils # 7.3 K/mm3 (1.8-7.8); Neutrophils % 89.4 % (37.0-80.0); Platelet Count 100 K/mm3 (142-424); Red Blood Count 3.29 M/mm3 (4.20-5.40); White Blood Count 8.1 K/mm3 (4.8-10.8)
[2024-12-25 14:52] LABS: VBG PCO2 54.9 mmol/L (35-51)
[2024-12-25 15:02] LABS: Albumin Level 2.8 g/dl (3.5-5.0); Chloride 89 mmol/L (98-107); Potassium 4.2 mmoL/L (3.5-5.1); Sodium 125 mmol/L (136-145)
[2024-12-25 15:05] LABS: Alanine Aminotransferase 18 U/L (12-78); Albumin/Globulin Ratio 0.9 (1.1-1.8); Alkaline Phosphatase 85 U/L (38-126); Anion Gap 6.2 mEq/L (5-15); Aspartate Amino Transferase 26 U/L (14-36); Bilirubin,Total 0.2 mg/dl (0.2-1.3); Blood Urea Nitrogen 12 mg/dl (7-17); Calcium 8.6 mg/dl (8.4-10.2); Carbon Dioxide 34 mmol/L (22.0-30.0); Creatinine Clearance Estimated 40 mL/min (50-200); Estimated Glomerular Filt Rate 160 ml/min (>60); GFR (African American) 194 ML/MIN (>60); Glucose 71 mg/dl (74-100); Phosphorous 3.2 mg/dl (2.5-4.5); Total Protein,Serum 5.8 g/dl (6.3-8.2)
[2024-12-25 15:06] LABS: Magnesium 1.6 mg/dl (1.6-2.3)
[2024-12-25 15:15] LABS: NT Pro Brain Natriuretic Pep. 2070 pg/mL (0-125)
[2024-12-25 15:24] LABS: Troponin I < 0.01 ng/ml (0.00-0.034)
[2024-12-25 15:32] LABS: INR 0.98 (0.9-1.1); Prothrombin Time 10.8 seconds (9.2-12.1)
[2024-12-25] MEDS: 0.9 % SODIUM CHLORIDE 50 ML VIAL IV (15:34)
[2024-12-25] MEDS: IOPAMIDOL-370 (76%);100ML BOTTLE 80 ML IV (15:34)
[2024-12-25] MEDS: SODIUM CHLORIDE 0.9% 10ML SYR (RAD ONLY) 10 ML IV (15:34)
[2024-12-25 15:38] LABS: Thyroid Stimulating Hormone 1.44 uIU/mL (0.465-4.68)
--- NOTE | 2024-12-25 16:12 | PC.NURSE ---
Patient stated that she could not go to the restroom at this time. She was informed we need that soon.
--- NOTE | 2024-12-25 16:21 | PC.NURSE ---
dr vásquez speaking with hospitalist
--- NOTE | 2024-12-25 16:34 | PC.NURSE ---
ROUNDED ON THE PT. THE PT VOICES THAT SHE DOES NOT NEED ANYTHING AT THIS TIME. CALL LIGHT IS WITHIN REACH OF THE PT.
[2024-12-25 16:35] LABS: Microscopic, Urine URINE MICROSCOPIC (MICROSCOPIC)
--- NOTE | 2024-12-25 16:37 | PC.NURSE ---
dr vásquez at bedside
[2024-12-25 16:55] LABS: Appearance,Urine CLEAR (Clear); Bilirubin,Urine Negative (Negative); Blood, Urine Negative (Negative); Color,Urine YELLOW (Yellow); Glucose,Urine (UA) Negative (Negative); Ketones,Urine Negative (Negative); Leukocyte Esterase,Urine Negative (Negative); Nitrate,Urine Negative (Negative); PH,Urine 6.5 (5.0-8.5); Protein,Urine Negative (Negative); Urobilinogen,Urine 0.2 EU/dl (0.2)
[2024-12-25] MEDS: AZITHROMYCIN 500 MG in 0.9 % SODIUM CHLORIDE 250 ML 250 MG IV (16:55)
[2024-12-25 17:06] LABS: Bacteria,Urine Trace /lpf; Squamous Epithelial Cell,Urine Occasional #/hpf (0-5)
--- NOTE | 2024-12-25 17:22 | PC.NURSE ---
Report called to [facility] Spaulding on Med Surg.
[2024-12-25] MEDS: CEFTRIAXONE SODIUM 2 GM in 0.9 % SODIUM CHLORIDE 100 ML IV (17:28)
[2024-12-25 18:05] LABS: Troponin I < 0.01 ng/ml (0.00-0.034)
--- NOTE | 2024-12-25 18:49 | P.HP_ITS ---
History of Present Illness *Admission Date: 12/25/24 *Reason for visit:: Shortness of breath *History of present illness: Marisa Kruse is a 64-year-old female with a medical history of COPD, hypertension, extensive smoking history, chronic hyponatremia, CAD presents with progressive functional decline, shortness of breath, productive cough. She was recently discharged about a week ago in stable condition after treatment for right lobar pneumonia. Patient states she did well for a few days at home and finished her course of Augmentin, however over the past few days she became increasingly short of breath, productive cough and profound weakness. She denies chest pain, abdominal pain. Patient at this time is not the best historian given her lethargy workup in the ED significant for WBC 8.1, sodium 125, BNP 2070. CTA revealed extensive right lower lobe pneumonia, hilar tatum nopathy. CT abdomen/pelvis suggestive of fluid-filled bowels, and severely distended urinary bladder. Ramos was placed with significant urine output. Case discussed with ED provider and decision was made to admit patient for acute hypoxic respiratory failure secondary to pneumonia, and functional decline. [facility] Disclaimer: The information contained in this section may have been updated after the patient was seen, as this information can be updated by other users. Medical History Encounter for screening for malignant neoplasm of lung in current smoker with 30 pack year history or greater Pleural thickening Lung nodule Tobacco abuse disorder Tobacco abuse counseling COPD (chronic obstructive pulmonary disease) Smoking greater than 30 pack years Dyspnea on exertion Surgical History Previous back surgery Family History Other No significant family history Social History (Updated 12/25/24 @ 18:18 by Anatoly Bennett RN) Smoking Status: Current every day smoker tobacco type: cigarettes packs per day: 3 alcohol intake: never current occupational status: disabled Travel in the last 8 weeks: None household members: significant other housing: house caffeine: Yes Have you lived/traveled outside [place] in past 30 days?: No Contact w/someone who lives/traveled outside US past 30 days?: No Exposure to someone with infectious disease in past 14 days?: No Do you have a fever (greater than 100.4 F or 38 C)?: No Have you tested positive for COVID-19: No Exposed to someone with COVID-19 in past 14 days?: No Do you have a sore throat?: No Do you have a cough?: No Do you have any weakness?: Yes Do you have any diarrhea?: No Are you experiencing any unusual bleeding?: No Do you have any muscle aches/pain?: No Do you have any abdominal pain?: No Are you experiencing loss of taste or smell?: No Other Medical History Have you received the Flu Vaccine for this season: No Have you received the Pneumonia Vaccine: No Meds Home Medications and Allergies Home Medications ?Medication ?Instructions ?Recorded ?Confirmed ?Type linaclotide 145 mcg capsule 145 mcg PO DAILY 01/16/22 12/25/24 History carvedilol 6.25 mg tablet 6.25 mg PO BID 12/18/24 12/25/24 History diclofenac sodium 75 mg 75 mg PO BID 12/18/24 12/25/24 History tablet,delayed release fluticasone fur. 200 mcg-umeclid 1 inh inhalation DAILY 12/18/24 12/25/24 History 62.5 mcg-vilant 25 mcg inhalat.powder (Trelegy Ellipta) fluticasone propionate 50 1 spray intranasal DAILY 12/18/24 12/25/24 History mcg/actuation nasal spray,suspension lisinopril 10 mg tablet 10 mg PO DAILY 12/18/24 12/25/24 History omeprazole 20 mg capsule,delayed 20 mg PO DAILY 12/18/24 12/25/24 History release potassium chloride 20 mEq 20 meq PO DAILY 12/18/24 12/25/24 History tablet,extended release(part/cryst) rosuvastatin 10 mg tablet 10 mg PO HS 12/18/24 12/25/24 History nystatin 100,000 unit/mL oral 500,000 unit (5 mL) PO QID 10 days 12/19/24 12/25/24 Rx suspension #200 mL New Prescriptions to Start Prescriptions: Allergies Allergy/AdvReac Type Severity Reaction Status Date / Time No Known Allergies Allergy Verified 12/25/24 15:02 Exam Data for Last 24 hours Vital signs and Labs for Last 24 Hours: Temp Pulse Resp BP Pulse Ox O2 Del Method O2 Flow Rate 98.0 F 80 15 113/56 L 91 L Nasal Cannula 4 12/25/24 17:20 12/25/24 17:20 12/25/24 17:20 12/25/24 17:20 12/25/24 16:30 12/25/24 18:00 12/25/24 18:00 Laboratory Results - last 24 hr 12/25/24 14:17: SARS-CoV-2 (PCR) Not detected, Influenza A Untype (PCR) Not detected, Influenza Type B (PCR) Not detected 12/25/24 14:35: VBG pH 7.35, VBG pCO2 54.9 H, VBG pO2 42.0 H, VBG HCO3 29.4, VBG Total CO2 31.0 H, VBG O2 Saturation 75.5 H, VBG Base Excess 3.7 H, VBG Lactic Acid 0.9 12/25/24 14:37: WBC 8.1, RBC 3.29 L, Hgb 8.6 L, Hct 26.9 L, MCV 81.8, MCH 26.1 L , MCHC 32.0, RDW 18.0 H, Plt Count 100 L, MPV 11.0 H, Neut % (Auto) 89.4 H, Lymph % (Auto) 5.5 L, [place] % (Auto) 4.1, Eos % (Auto) 0.2, Baso % (Auto) 0.1, Neut # (Auto) 7.3, Lymph # (Auto) 0.5 L, [place] # (Auto) 0.3, Eos # (Auto) 0.0, Baso # (Auto) 0.0, PT 10.8, INR 0.98, Sodium 125 L, Potassium 4.2, Chloride 89 L , Carbon Dioxide 34 H, Anion Gap 6.2, BUN 12, Creatinine 0.40 L, Estimated Creat Clear 40, Estimated GFR 160, Est GFR ( Amer) 194, Glucose 71 L, Calcium 8.6, Phosphorus 3.2, Magnesium 1.6, Total Bilirubin 0.2, AST 26, ALT 18, Alkaline Phosphatase 85, Troponin I < 0.01, NT-Pro-B Natriuret Pep 2070 H, Total Protein 5.8 L, Albumin 2.8 L, Globulin 3.0, Albumin/Globulin Ratio 0.9 L, TSH 1.44, Thyroxine (T4) 13.0 H 12/25/24 16:30: Urine Color Yellow, Urine Appearance Clear, Urine pH 6.5, Ur Specific [place] 1.010, Urine Protein Negative, Urine Glucose (UA) Negative, Urine Ketones Negative, Urine Blood Negative, Urine Nitrate Negative, Urine Bilirubin Negative, Urine Urobilinogen 0.2, Ur Leukocyte Esterase Negative, Urine RBC None, Urine WBC None, Ur Squamous Epith Cells Occasional, Urine Bacteria Trace 12/25/24 17:25: Troponin I < 0.01 I & O for Last 24 hours: Intake & Output 12/22/24 12/23/24 12/24/24 12/25/24 23:59 23:59 23:59 23:59 Weight 45.359 kg Constitutional Constitutional: no acute distress and cachectic *Routine HEENT Exam Head: Present normocephalic Eye: Present EOMI and PERRL ENT: Present mucous membranes moist *Routine Neck Exam Neck: Present supple; Absent lymphadenopathy *Routine Respiratory Exam Respiratory: Present CTA bilaterally *Routine Cardiovascular Exam Cardiovascular: Present RRR *Routine Abdominal Exam Abdominal: Present soft and normoactive bowel sounds; Absent tenderness *Routine Rectal Exam Rectal:: deferred *Routine Genitalia Exam Genitalia:: deferred *Routine Extremities Exam Extremities: Absent cyanosis, clubbing or edema Comments: Lower extremity pitting edema 2+. *Routine Skin Exam Skin: Present warm; Absent rash *Routine Neurological Exam Neurological: Present alert and oriented X3 Assessment and Plan *Assessment and plan (1) Acute urinary retention: Status: Acute Category: Medical Code(s): R33.8 - Other retention of urine (2) Right lower lobe pneumonia: Status: Acute Category: Medical Code(s): J18.9 - Pneumonia, unspecified organism Plan Marisa Kruse is a 64-year-old female with a medical history of COPD, hypertension, extensive smoking history, chronic hyponatremia, CAD presents with progressive functional decline, shortness of breath, productive cough. She was recently discharged about a week ago in stable condition after treatment for right lobar pneumonia. Patient states she did well for a few days at home and finished her course of Augmentin, however over the past few days she became increasingly short of breath, productive cough and profound weakness. She denies chest pain, abdominal pain. Patient at this time is not the best historian given her lethargy workup in the ED significant for WBC 8.1, sodium 125, BNP 2070. CTA revealed extensive right lower lobe pneumonia, hilar adenopathy. CT abdomen/pelvis suggestive of fluid-filled bowels, and severely distended urinary bladder. Ramos was placed with significant urine output. Case discussed with ED provider and decision was made to admit patient for acute hypoxic respiratory failure secondary to pneumonia, and functional decline. #Acute hypoxic respiratory failure #Right lobar pneumonia #Hilar adenopathy #Functional decline, weight loss ? Discharged in stable condition about a week ago, unfortunately returns due to progressive shortness of breath and functional decline. ? CTA continues to reveal right lobar pneumonia. No leukocytosis or signs of sepsis at this time. ? CTA also reveals hilar adenopathy, and with patient's chronic hyponatremia and functional decline, weight loss this may represent cancer. ? Started vancomycin, cefepime day 1. ? Follow-up procalcitonin, sputum culture, blood culture, MRSA nare. ? Pulmonology consulted, pending further recommendations. Will make n.p.o. at midnight for possible bronchoscopy. #Physical deconditioning #Functional decline #Severe protein calorie malnutrition ? PT/OT consulted, pending further recommendations. ? Will provide high-protein shakes with meals. ? Follow-up TFTs, B12, folate, vitamin D. #Urinary retention ? Conservatively distended bladder on CT, s/p Ramos insertion with significant output. ? Continue to monitor. #Chronic hyponatremia ? Sodium 125 on admission. Seems to have had a decline over the past few months. ? 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 ? Follow-up serum/urine osmolality, urine sodium, TSH, free T4, lipid panel, cortisol. ? Patient has severe nutritional deficiencies, so will not fluid restrict at this time. ? Will also hold off on salt tabs given significant third spacing at this time. #Elevated BNP ? Initial BNP 1999, with 2+ pitting edema. ? This may be related to heart failure and/or severe protein/nutritional deficiencies. ? Will hold off on diuresis due to soft pressures. ? Follow-up ECHO. #Hypertension ? Hold off on home BP meds given soft pressures. #GERD ? Resume home PPI Full code DVT prophylaxis: Lovenox 30 mg
[2024-12-25 19:00] LABS: POC Glucose,Bedside 71 (70-110)
--- NOTE | 2024-12-25 19:06 | ECG_ITS ---
APPROVED REPORT Exam: Resting ECG HR:81 bpm ECG Measurements Heart Rate 81 AXES NE 226 P 70 QRSd 102 QRS 50 QT 447 T 103 QTc 484 Conclusion SINUS RHYTHM WITH FIRST DEGREE AV BLOCK LEFT VENTRICULAR HYPERTROPHY AND ST-T CHANGE [VOLTAGE CRITERIA PLUS ST/T ABNORMALITY] ABNORMAL ECG UNCONFIRMED REPORT Electronically signed by : Sudheer Tan MD 12/26/2024 15:49:55
[2024-12-25] MEDS: DEXTROSE 50% 50ML SYRINGE (CRASH CART) 50 ML IV (19:21)
--- NOTE | 2024-12-25 19:21 | PC.NURSE ---
Pt. given iv dextrose one amp and started NS 500ml bolus.
[2024-12-25] MEDS: 0.9 % SODIUM CHLORIDE 500 ML 999 ML IV (19:24)
[2024-12-25 19:45] LABS: Chloride 90 mmol/L (98-107); Potassium 3.7 mmoL/L (3.5-5.1); Sodium 124 mmol/L (136-145)
[2024-12-25 19:48] LABS: Anion Gap 6.7 mEq/L (5-15); Blood Urea Nitrogen 11 mg/dl (7-17); Carbon Dioxide 31 mmol/L (22.0-30.0); Creatinine Clearance Estimated 43 mL/min (50-200); Estimated Glomerular Filt Rate 160 ml/min (>60); GFR (African American) 194 ML/MIN (>60)
[2024-12-25 19:49] LABS: Calcium 8.1 mg/dl (8.4-10.2); Glucose 196 mg/dl (74-100)
[2024-12-25] MEDS: VANCOMYCIN CONSULT REQUEST 1 EACH NOTAPPLIC (19:56)
[2024-12-25 19:58] LABS: NT Pro Brain Natriuretic Pep. 2320 pg/mL (0-125)
[2024-12-25 20:02] LABS: Troponin I < 0.01 ng/ml (0.00-0.034)
[2024-12-25 20:44] LABS: Troponin I < 0.01 ng/ml (0.00-0.034)
[2024-12-25] MEDS: CEFEPIME HCL 1 GM in 0.9 % SODIUM CHLORIDE 50 ML IV (21:16)
[2024-12-25] MEDS: VANCOMYCIN HCL 1,000 MG in 0.9 % SODIUM CHLORIDE 250 ML 125 MG IV (21:17)
--- NOTE | 2024-12-25 21:30 | PC.NURSE ---
Provider notified of pts bp : 76/40 map 52, manual bp 74/38. See MAR for new orders. Provider also notified of pts temp rectally being 94.2 degrees. Provider stated not to put pt on bear hugger yet until pts bp comes up with new orders. Pt covered in blankets at this time.
[2024-12-25] MEDS: NOREPINEPHRINE BITARTRATE/D5W 8 MG/250 ML PLAST..BAG 15 MG IV (21:48)
[2024-12-25] MEDS: HYDROCORTISONE SOD SUCCINATE 100MG VIAL 100 MG IV (22:40)
[2024-12-26] VITALS (40 sets, daily range): BP systolic 93–132; BP diastolic 48–94; PULSE 77–120; RESP 12–20; TEMP 35.4–37.4; O2SAT 89–98; BMI 18.0; BMI 17.9
[2024-12-26 00:27] LABS: Adenovirus,PCR Not Detected (NotDetected); Bordetella Pertussis Not Detected (NotDetected); Chlamydophila Pneumoniae, PCR Not Detected (NotDetected); Coronavirus 19, PCR Not Detected (NotDetected); Coronavirus 229E Not Detected (NotDetected); Coronavirus NL63 Not Detected (NotDetected); Coronavirus OC43 Not Detected (NotDetected); Coronovirus HKU1,PCR Not Detected (NotDetected); Human Metapneumovirus Not Detected (NotDetected); Influenza A, PCR Not Detected (NotDetected); Influenza AH1, 2009 Not Detected (NotDetected); Influenza AH1, PCR Not Detected (NotDetected); Influenza AH3,PCR Not Detected (NotDetected); Influenza B, PCR Not Detected (NotDetected); Mycoplasma Pneumoniae, PCR Not Detected (NotDetected); Parainfluenza 1, PCR Not Detected (NotDetected); Parainfluenza 2, PCR Not Detected (NotDetected); Parainfluenza 3, PCR Not Detected (NotDetected); Parainfluenza 4, PCR Not Detected (NotDetected); Respiratory Syncytial Virus Not Detected (NotDetected); Rhinovirus/Enterovirus Not Detected (NotDetected)
[2024-12-26 02:47] LABS: ABG Base Excess 2.9 mmol/L (-2.4-2.3); ABG HCO3 28.7 mmhg (22.0-26.0); ABG Oxygen Saturation 92 % (90-100); ABG PH 7.34 mmol/L (7.35-7.45); ABG PO2 70.2 mmhg (80-100); ABG TCO2 30.4 mmhg (23-27)
[2024-12-26 02:48] LABS: ABG PCO2 54.7 mmhg (35.0-45.0); Allen's Test Acceptable; Oxygen 50 %; Source Right Radial
--- NOTE | 2024-12-26 06:00 | CA_ITS ---
APPROVED REPORT EXAM: Comprehensive 2D, Doppler, and color-flow Echocardiogram Title Attorney: Mirna Gonzalez, RCS, RVS Ht: 5 ft 5 in Wt: 107lbs BSA: 1.52 BP: 125/64 mmHg Indications: COPD, Smoker, SOA, HTN, CHF, CAD 2D Dimensions IVSd 0.88 cm LVEF (Visual) 56.70 % PWd 0.83 cm LA Volume 41.70 mL LVDd 4.44 cm LA Volume Index [id number] mL/m2 (M/F) 16-34 LVDs 3.13 cm Left Atrium 2.09 cm M-Mode Dimensions RVDd 2.04 cm (0.9-2.6) LA Diam 2.59 cm (1.9-4.0) LVDd 4.82 cm (3.5-5.7) LVDs 3.58 cm (3.5-5.7) IVSd 0.97 cm (0.6-1.1) PWd 0.80 cm (0.6-1.1) EF (Teich) 50.60% EPSs 0.47 cm FS 25.70% EDV (Teich) 108.60 mL TAPSE 2.48 (<1.7) ESV (Teich) 53.70 mL LV Diastology E Decel Time 82 (160-240 msec) E/A Ratio 1.04 MED A' 6.00 cm/s LAT A' 5.20 cm/s Aortic Valve GUERA Index 1.46 cm2/m2 AoV Peak Vickey. 184.0 (50-130 cm/s) AI PHT 460.00 ms AO Peak GR. 13.50 mmHg AO Mean GR. 6.70 (<5 mmHg) AO VTI 29.6 (18-25 cm) GUERA (VTI) 2.26 (2.5-4.5 cm2) Mitral Valve MV A Velocity 82.0 (40-130 cm/s) E/A Ratio 1.04 Pulmonary Valve PV Peak Velocity 104.0 (50-150 cm/s) Tricuspid Valve TR P. Velocity 356.00 cm/s RAP Estimate 10.00 mmHg RVSP 60.70 mmHg Left Ventricle The left ventricle is normal size. There is increased LV wall thickness. The left ventricular systolic function is normal. The left ventricular ejection fraction is within the normal range. There is normal LV segmental wall motion. Diastolic function is indeterminate. LVEF is 55%. Right Ventricle Right ventricle is moderately dilated. Right ventricle is mildly hypokinetic. Atria Left atrium is mildly dilated. Right atrium is mildly dilated. There is no Doppler evidence of interatrial shunt. Aortic Valve Aortic valve is mildly thickened. Mild aortic regurgitation. There is no aortic valvular stenosis. Mitral Valve The mitral valve is normal in structure. No evidence of mitral valve stenosis. Mild mitral regurgitation. Tricuspid Valve Tricuspid valve is grossly normal in structure and function. Moderate tricuspid regurgitation. RVSP is 50-55 mmHg. Pulmonic Valve The pulmonary valve is normal in structure. Mild pulmonic regurgitation. Great Vessels The aortic root is normal in size. The ascending aorta is not well-visualized. IVC is normal in size and collapses >50% with inspiration. Pericardium There is no pericardial effusion. Other Information Study Quality: Fair Conclusion Normal LV systolic function. Moderate RV dilation with mild reduction in RV function. Moderate TR. Mild AI, mild MR, mild AR. Elevated RVSP 50-55 mmHg. Electronically signed by : Nathaly Browne MD 12/26/2024 20:08:48
[2024-12-26] MEDS: CEFEPIME HCL 1 GM in 0.9 % SODIUM CHLORIDE 50 ML IV ×2 (06:49→18:00)
[2024-12-26 07:03] LABS: Basophils % 0.2 % (0.1-2.0); Hemoglobin 8.1 g/dL (12.2-16.2); Lymphocytes # 0.2 K/mm3 (0.7-4.5); Lymphocytes % 1.6 % (10-50); Mean Corpuscular HGB Conc 32.4 g/dL (31.8-35.4); Mean Corpuscular Hemoglobin 26.6 pg (27.0-31.2); Mean Corpuscular Volume 82.2 fl (81-99); Mean Platelet Volume 10.7 fl (7.4-10.4); Monocytes # 0.1 K/mm3 (0.1-1.0); Monocytes % 1.2 % (1.7-9.3); Neutrophils # 9.2 K/mm3 (1.8-7.8); Neutrophils % 96.1 % (37.0-80.0); Platelet Count 107 K/mm3 (142-424); Red Blood Count 3.04 M/mm3 (4.20-5.40); Red Cell Distribution Width 18.2 % (11.5-17.5); White Blood Count 9.6 K/mm3 (4.8-10.8)
[2024-12-26 07:17] LABS: Albumin Level 2.6 g/dl (3.5-5.0); Chloride 93 mmol/L (98-107); Potassium 4.1 mmoL/L (3.5-5.1); Sodium 127 mmol/L (136-145)
[2024-12-26 07:19] LABS: Blood Urea Nitrogen 10 mg/dl (7-17); Creatinine Clearance Estimated 43 mL/min (50-200); Estimated Glomerular Filt Rate 124 ml/min (>60); GFR (African American) 150 ML/MIN (>60)
[2024-12-26 07:20] LABS: Alanine Aminotransferase 16 U/L (12-78); Albumin/Globulin Ratio 0.9 (1.1-1.8); Alkaline Phosphatase 107 U/L (38-126); Anion Gap 7.1 mEq/L (5-15); Aspartate Amino Transferase 21 U/L (14-36); Calcium 8.4 mg/dl (8.4-10.2); Carbon Dioxide 31 mmol/L (22.0-30.0); Glucose 64 mg/dl (74-100); Lactic Acid < 0.5 mmol/L (0.7-2.1); Total Protein,Serum 5.6 g/dl (6.3-8.2)
[2024-12-26 07:21] LABS: Bilirubin,Total < 0.1 mg/dl (0.2-1.3); MANUAL DIFFERENTIAL MANUAL DIFFERENTIAL (MANUAL DIFF); Magnesium 1.6 mg/dl (1.6-2.3)
--- NOTE | 2024-12-26 07:49 | EXP.PHA.CONS ---
Pharmacy Consult Date: 12/26/24 Time: 07:49 Referring provider: DR. THOMPSON Reason for Consult:: VANCOMYCIN DOSING Allergies Allergy/AdvReac Type Severity Reaction Status Date / Time No Known Allergies Allergy Verified 12/25/24 15:02 Home Medications ?Medication ?Instructions ?Recorded ?Confirmed ?Type linaclotide 145 mcg capsule 145 mcg PO DAILY 01/16/22 12/25/24 History carvedilol 6.25 mg tablet 6.25 mg PO BID 12/18/24 12/25/24 History diclofenac sodium 75 mg 75 mg PO BID 12/18/24 12/25/24 History tablet,delayed release fluticasone fur. 200 mcg-umeclid 1 inh inhalation DAILY 12/18/24 12/25/24 History 62.5 mcg-vilant 25 mcg inhalat.powder (Trelegy Ellipta) fluticasone propionate 50 1 spray intranasal DAILY 12/18/24 12/25/24 History mcg/actuation nasal spray,suspension lisinopril 10 mg tablet 10 mg PO DAILY 12/18/24 12/25/24 History omeprazole 20 mg capsule,delayed 20 mg PO DAILY 12/18/24 12/25/24 History release potassium chloride 20 mEq 20 meq PO DAILY 12/18/24 12/25/24 History tablet,extended release(part/cryst) rosuvastatin 10 mg tablet 10 mg PO HS 12/18/24 12/25/24 History nystatin 100,000 unit/mL oral 500,000 unit (5 mL) PO QID 10 days 12/19/24 12/25/24 Rx suspension #200 mL New Prescriptions to Start Prescriptions: Height: 1.65 m Weight: 49.124 kg Laboratory Results:: Laboratory Results - last 24 hr 12/25/24 14:17: SARS-CoV-2 (PCR) Not detected, Influenza A Untype (PCR) Not detected, Influenza Type B (PCR) Not detected 12/25/24 14:35: VBG pH 7.35, VBG pCO2 54.9 H, VBG pO2 42.0 H, VBG HCO3 29.4, VBG Total CO2 31.0 H, VBG O2 Saturation 75.5 H, VBG Base Excess 3.7 H, VBG Lactic Acid 0.9 12/25/24 14:37: WBC 8.1, RBC 3.29 L, Hgb 8.6 L, Hct 26.9 L, MCV 81.8, MCH 26.1 L, MCHC 32.0, RDW 18.0 H, Plt Count 100 L, MPV 11.0 H, Neut % (Auto) 89.4 H, Lymph % (Auto) 5.5 L, [place] % (Auto) 4.1, Eos % (Auto) 0.2, Baso % (Auto) 0.1, Neut # (Auto) 7.3, Lymph # (Auto) 0.5 L, [place] # (Auto) 0.3, Eos # (Auto) 0.0, Baso # (Auto) 0.0, PT 10.8, INR 0.98, Sodium 125 L, Potassium 4.2, Chloride 89 L, Carbon Dioxide 34 H, Anion Gap 6.2, BUN 12, Creatinine 0.40 L, Estimated Creat Clear 40, Estimated GFR 160, Est GFR ( Amer) 194, Glucose 71 L, Calcium 8.6, Phosphorus 3.2, Magnesium 1.6, Total Bilirubin 0.2, AST 26, ALT 18, Alkaline Phosphatase 85, Troponin I < 0.01, NT-Pro-B Natriuret Pep 2070 H, Total Protein 5.8 L, Albumin 2.8 L, Globulin 3.0, Albumin/Globulin Ratio 0.9 L, TSH 1.44, Thyroxine (T4) 13.0 H 12/25/24 16:30: Urine Color Yellow, Urine Appearance Clear, Urine pH 6.5, Ur Specific [place] 1.010, Urine Protein Negative, Urine Glucose (UA) Negative, Urine Ketones Negative, Urine Blood Negative, Urine Nitrate Negative, Urine Bilirubin Negative, Urine Urobilinogen 0.2, Ur Leukocyte Esterase Negative, Urine RBC None, Urine WBC None, Ur Squamous Epith Cells Occasional, Urine Bacteria Trace 12/25/24 17:25: Troponin I < 0.01 12/25/24 18:53: POC Glucose 71 12/25/24 19:14: Sodium 124 L, Potassium 3.7, Chloride 90 L, Carbon Dioxide 31 H, Anion Gap 6.7, BUN 11, Creatinine 0.40 L, Estimated Creat Clear 43, Estimated GFR 160, Est GFR ( Amer) 194, Glucose 196 H D, Calcium 8.1 L, Troponin I < 0.01, NT-Pro-B Natriuret Pep 2320 H 12/25/24 19:55: Troponin I < 0.01 12/25/24 21:54: Folate 18.40 12/26/24 00:03: Chlamy pneumoniae PCR Not detected, Adenovirus (PCR) Not detected, B. pertussis DNA (PCR) Not detected, Coronavirus OC43 (PCR) Not detected, Coronavirus HKU1 (PCR) Not detected, Coronavirus 229E (PCR) Not detected, SARS-CoV-2 (PCR) Not detected, Coronavirus NL63 (PCR) Not detected, Human Metapneumovir PCR Not detected, Influenza A (H1) PCR Not detected, Influ A (H1N1/09) PCR Not detected, Influenza A (H3) PCR Not detected, Influenza Type A (PCR) Not detected, Influenza Type B (PCR) Not detected, M. pneumoniae (PCR) Not detected, Parainfluenza 1 (PCR) Not detected, Parainfluenza 2 (PCR) Not detected, Parainfluenza 3 (PCR) Not detected, Parainfluenza 4 (PCR) Not detected, RSV (PCR) Not detected, Entero/Rhino (PCR) Not detected 12/26/24 02:39: Specimen Source Right radial, O2 % 50, ABG pH 7.34 L, ABG pCO2 54.7 H, ABG pO2 70.2 L, ABG HCO3 28.7 H, ABG Total CO2 30.4 H, ABG O2 Saturation 92, ABG Base Excess 2.9 H, Emigdio Test Acceptable 12/26/24 06:13: WBC 9.6, RBC 3.04 L, Hgb 8.1 L, Hct 25.0 L, MCV 82.2, MCH 26.6 L, MCHC 32.4, RDW 18.2 H, Plt Count 107 L, MPV 10.7 H, Neut % (Auto) 96.1 H, Lymph % (Auto) 1.6 L, [place] % (Auto) 1.2 L, Eos % (Auto) 0.0 L, Baso % (Auto) 0.2, Neut # (Auto) 9.2 H, Lymph # (Auto) 0.2 L, [place] # (Auto) 0.1, Eos # (Auto) 0.0, Baso # (Auto) 0.0, Sodium 127 L, Potassium 4.1, Chloride 93 L, Carbon Dioxide 31 H, Anion Gap 7.1, BUN 10, Creatinine 0.50 L D, Estimated Creat Clear 43, Estimated GFR 124, Est GFR ( Amer) 150 D, Glucose 64 L D, Lactate < 0.5 L, Calcium 8.4, Magnesium 1.6, Total Bilirubin < 0.1 L, AST 21, ALT 16, Alkaline Phosphatase 107, Total Protein 5.6 L, Albumin 2.6 L, Globulin 3.0, Albumin/Globulin Ratio 0.9 L Medical History: Medical History (Updated 12/25/24 @ 17:09 by Merlin Espinosa MD) Encounter for screening for malignant neoplasm of lung in current smoker with 30 pack year history or greater Pleural thickening Lung nodule Tobacco abuse disorder Tobacco abuse counseling COPD (chronic obstructive pulmonary disease) Smoking greater than 30 pack years Dyspnea on exertion Assessment and Plan Assessment and plan all Dx Assessment and Plan for all problems:: Pharmacokinetic dosing service Objective: Patient: Floor: Age: 64 yo Serum creatinine: 0.50 mg/dL Height: 65.0 Inches Weight (kg): 49.1 Assessment: IBW (kg): 57.00 Dosing wt(kg): 49.1 Estimated Creatinine clearance (ml/min): 86.9 CRCL method: Cockcroft and Gault using ibw(default). Drug selected: Vancomycin Loading dose (mg): Vd (liters): 34.4 (factor used: 0.7 L/kg) Radu (hr-1): 0.077 Half life (hrs): 9.00 CLvanco=?? 2.649 L/hr Recommended dose: 750 mg Interval: 12 hrs Infusion time (hrs): 2.0 Predicted peak (mcg/mL): 33.5 Predicted trough (mcg/mL): 15.51 Total body weight is being used for vancomycin dosing. Recommendations: Give Vancomycin 750 mg q 12 hrs with an expected Cpeak of 33.5 mcg/ml and an expected Ctrough of 15.51 mcg/ml AUC 0-24 /DES Data: DES 0.5 mcg/mL:?? AUC/DES:? 1132.5 DES 1.0 mcg/mL:?? AUC/DES:? 566.3 --------- DES 1.5 mcg/mL:?? AUC/DES:? 377.5 DES 2.0 mcg/mL:?? AUC/DES:? 283.1 Thank you for the consult, will continue to follow. -BEN SILVA, JUANAD
--- NOTE | 2024-12-26 08:08 | HMH.PHAINT1 ---
Pharmacy Intervention Comments: HOME MEDICATION LIST VERIFIED USING LIST FROM OUTPATIENT PHARMACY AND PT INTERVIEW
[2024-12-26] MEDS: ENOXAPARIN 30MG/0.3ML SYRINGE 30 MG SUBCUT (08:36)
[2024-12-26] MEDS: VANCOMYCIN HCL 750 MG in 0.9 % SODIUM CHLORIDE 250 ML 125 MG IV ×2 (08:36→20:05)
[2024-12-26 08:43] LABS: Chol/HDL Ratio 2.2 (1-3.5); Cholesterol 111 mg/dl (140-200); HDL Cholesterol 50 mg/dl (40-60); Triglycerides 56 mg/dl (30-150); VLDL Cholesterol 11 mg/dL (0-40)
[2024-12-26 08:54] LABS: NT Pro Brain Natriuretic Pep. 2720 pg/mL (0-125)
--- NOTE | 2024-12-26 08:57 | XR_ITS ---
FINAL REPORT CLINICAL HISTORY: pneumonia COMPARISON: 12/18/2024 FINDINGS: There has been moderate improvement in the advanced right lower lobe pneumonia. A moderate right pleural effusion is also improved. The left lung is clear. There is no evidence of pneumothorax. Mediastinum is unremarkable. Heart size is normal. IMPRESSION: Improved right lower lobe pneumonia and pleural effusion. Reviewed, Interpreted and Dictated by Sunni Quesada MD Transcribed by Kelsey Bejarano Authenticated and [facility]
[2024-12-26 09:01] LABS: Procalcitonin 0.062 ng/mL (0.0-2.0); Total Iron Binding Capacity 273 ug/dL (265-497)
[2024-12-26 09:02] LABS: Lymphocytes % 3 % (10-50); Monocytes % 2 % (2-9); Neutrophils % 94 % (42-76); Total Cells Counted 100
[2024-12-26 09:03] LABS: Platelet Estimate Slight Decrease; RBC Morphology Normal
[2024-12-26 09:04] LABS: Microcytosis 1+
[2024-12-26 09:05] LABS: Hypochromasia 1+
[2024-12-26 09:10] LABS: Hemoglobin A1C 5.3 % (4.0-6.0)
[2024-12-26 09:12] LABS: Direct LDL Cholesterol 36.34 mg/dL (100-129)
[2024-12-26 09:15] LABS: Thyroid Stimulating Hormone 0.86 uIU/mL (0.465-4.68)
[2024-12-26] MEDS: FUROSEMIDE 40MG/4ML VIAL 40 MG IV (09:21)
--- NOTE | 2024-12-26 09:35 | DIET.NUTRFU ---
RD completed chart review, patient was seen by [facility] [employer] [facility] n 12/19 with recommendations of MSOFT chopped with thin liquids. She was not wearing bottom dentures at time of [employer] eval. Wt stable x1 year. High protein homemade shakes will by restarted with all meals once NPO discontinued.
[2024-12-26 09:38] LABS: Vitamin B12 > 1000 pg/mL (239-931)
[2024-12-26 09:40] LABS: Lactate Venous 0.9 mmol/L (0.4-2.0); VBG Base Excess 2.9 mmol/L (-2.4-2.3); VBG HCO3 27.7 mmol/L (23-30); VBG Oxygen Saturation 93.7 % (50-70); VBG PCO2 45.4 mmol/L (35-51); VBG Total CO2 29.1 mmol/L (23-27)
--- NOTE | 2024-12-26 10:13 | ECG_ITS ---
APPROVED REPORT Exam: Resting ECG HR:94 bpm ECG Measurements Heart Rate 94 AXES [place] 207 P 87 QRSd 83 QRS 58 QT 364 T 97 QTc 416 Conclusion SINUS RHYTHM WITH OCCASIONAL VENTRICULAR PREMATURE COMPLEXES POSSIBLE RIGHT VENTRICULAR CONDUCTION DELAY Late R wave progression ABNORMAL ECG UNCONFIRMED REPORT Electronically signed by : Sudheer Tan MD 12/26/2024 15:49:27
--- NOTE | 2024-12-26 10:15 | EXP.PULM.CON ---
History of Present Illness History of present illness: Ms. Kruse is a 64-year-old female with reported history of COPD hypertension CAD chronic hyponatremia recently discharged from the hospital for right lobar pneumonia on Augmentin presented with worsening respiratory distress found be hypotensive needing vasopressor support and pulmonary was called for further evaluation and management. Patient during her recent admission found to be having the right lower lobe dense consolidative changes, initiated on ceftriaxone and azithromycin on admission, discharged home on Augmentin. Current smoker greater than 30 PPD. At baseline not using oxygen supplementation during the daytime until most recent discharge. Prescribed nocturnal oxygen supplementation however has not been compliant. [facility] Disclaimer: The information contained in this section may have been updated after the patient was seen, as this information can be updated by other users. Medical History (Updated 12/26/24 @ 13:35 by Melvin Aponte MD) Unresolved pneumonia Pseudomonas pneumonia Acute respiratory failure with hypoxemia Encounter for screening for malignant neoplasm of lung in current smoker with 30 pack year history or greater Pleural thickening Lung nodule Tobacco abuse disorder Tobacco abuse counseling COPD (chronic obstructive pulmonary disease) Smoking greater than 30 pack years Dyspnea on exertion Surgical History Previous back surgery Family History Other No significant family history Social History (Updated 12/25/24 @ 18:18 by Anatoly Bennett RN) Smoking Status: Current every day smoker tobacco type: cigarettes packs per day: 3 alcohol intake: never current occupational status: disabled Travel in the last 8 weeks: None household members: significant other housing: house caffeine: Yes Have you lived/traveled outside US in past 30 days?: No Contact w/someone who lives/traveled outside US past 30 days?: No Exposure to someone with infectious disease in past 14 days?: No Do you have a fever (greater than 100.4 F or 38 C)?: No Have you tested positive for COVID-19: No Exposed to someone with COVID-19 in past 14 days?: No Do you have a sore throat?: No Do you have a cough?: No Do you have any weakness?: Yes Do you have any diarrhea?: No Are you experiencing any unusual bleeding?: No Do you have any muscle aches/pain?: No Do you have any abdominal pain?: No Are you experiencing loss of taste or smell?: No Review of Systems Constitutional Constitutional: Reports anorexia, Reports body ache(s), Reports fatigue and Reports lethargy Eyes Eyes: Denies eye discharge, Denies dry eyes, Denies irritation and Denies itchy eyes ENT Ears, Nose, Mouth, and Throat: Denies epistaxis, Denies facial pain, Denies lip swelling and Denies throat swelling *Cardiovascular Cardiovascular: Reports dyspnea and Reports dyspnea on exertion *Respiratory Respiratory: Reports chest congestion, Reports cough, Reports dyspnea, Reports dyspnea on exertion, Reports excessive phlegm production, Denies hemoptysis, Denies pain on inspiration, Denies pain with cough and Reports wheezing *Gastrointestinal Gastrointestinal: Denies abdominal pain, Denies belching and Denies cramping *Musculoskeletal Musculoskeletal: Reports back pain, Reports myalgias and Reports other (No small joint swelling or Pain) Psychiatric Psychiatric: Denies homicidal ideation and Denies suicidal ideation Endocrine Endocrine: Reports fatigue and Denies heat intolerance Hematologic/Lymphatic Hematologic/Lymphatic: Denies easy bleeding and Denies lymphadenopathy Allergic/Immunologic Allergic/Immunologic: Denies itchy eyes, Denies lip swelling, Denies throat swelling and Reports wheezing Pulmonology Exam Inpatient Vital signs and Labs for Last 24 Hours: Temp Pulse Resp BP Pulse Ox O2 Del Method O2 Flow Rate 98.7 F 120 H 17 123/53 L 97 BiPAP 3 12/26/24 08:00 12/26/24 08:00 12/26/24 08:00 12/26/24 08:25 12/26/24 08:00 12/26/24 09:25 12/26/24 02:00 FiO2 35 12/26/24 07:52 Laboratory Results - last 24 hr 12/25/24 14:17: SARS-CoV-2 (PCR) Not detected, Influenza A Untype (PCR) Not detected, Influenza Type B (PCR) Not detected 12/25/24 14:35: VBG pH 7.35, VBG pCO2 54.9 H, VBG pO2 42.0 H, VBG HCO3 29.4, VBG Total CO2 31.0 H, VBG O2 Saturation 75.5 H, VBG Base Excess 3.7 H, VBG Lactic Acid 0.9 12/25/24 14:37: WBC 8.1, RBC 3.29 L, Hgb 8.6 L, Hct 26.9 L, MCV 81.8, MCH 26.1 L, MCHC 32.0, RDW 18.0 H, Plt Count 100 L, MPV 11.0 H, Neut % (Auto) 89.4 H, Lymph % (Auto) 5.5 L, Storey % (Auto) 4.1, Eos % (Auto) 0.2, Baso % (Auto) 0.1, Neut # (Auto) 7.3, Lymph # (Auto) 0.5 L, Storey # (Auto) 0.3, Eos # (Auto) 0.0, Baso # (Auto) 0.0, PT 10.8, INR 0.98, Sodium 125 L, Potassium 4.2, Chloride 89 L, Carbon Dioxide 34 H, Anion Gap 6.2, BUN 12, Creatinine 0.40 L, Estimated Creat Clear 40, Estimated GFR 160, Est GFR ( Amer) 194, Glucose 71 L, Calcium 8.6, Phosphorus 3.2, Magnesium 1.6, Total Bilirubin 0.2, AST 26, ALT 18, Alkaline Phosphatase 85, Troponin I < 0.01, NT-Pro-B Natriuret Pep 2070 H, Total Protein 5.8 L, Albumin 2.8 L, Globulin 3.0, Albumin/Globulin Ratio 0.9 L, TSH 1.44, Thyroxine (T4) 13.0 H 12/25/24 16:30: Urine Color Yellow, Urine Appearance Clear, Urine pH 6.5, Ur Specific [place] 1.010, Urine Protein Negative, Urine Glucose (UA) Negative, Urine Ketones Negative, Urine Blood Negative, Urine Nitrate Negative, Urine Bilirubin Negative, Urine Urobilinogen 0.2, Ur Leukocyte Esterase Negative, Urine RBC None, Urine WBC None, Ur Squamous Epith Cells Occasional, Urine Bacteria Trace 12/25/24 17:25: Troponin I < 0.01 12/25/24 18:53: POC Glucose 71 12/25/24 19:14: Sodium 124 L, Potassium 3.7, Chloride 90 L, Carbon Dioxide 31 H, Anion Gap 6.7, BUN 11, Creatinine 0.40 L, Estimated Creat Clear 43, Estimated GFR 160, Est GFR ( Amer) 194, Glucose 196 H D, Calcium 8.1 L, Troponin I < 0.01, NT-Pro-B Natriuret Pep 2320 H 12/25/24 19:55: Troponin I < 0.01 12/25/24 21:54: Folate 18.40 12/26/24 00:03: Chlamy pneumoniae PCR Not detected, Adenovirus (PCR) Not detected, B. pertussis DNA (PCR) Not detected, Coronavirus OC43 (PCR) Not detected, Coronavirus HKU1 (PCR) Not detected, Coronavirus 229E (PCR) Not detected, SARS-CoV-2 (PCR) Not detected, Coronavirus NL63 (PCR) Not detected, Human Metapneumovir PCR Not detected, Influenza A (H1) PCR Not detected, Influ A (H1N1/09) PCR Not detected, Influenza A (H3) PCR Not detected, Influenza Type A (PCR) Not detected, Influenza Type B (PCR) Not detected, M. pneumoniae (PCR) Not detected, Parainfluenza 1 (PCR) Not detected, Parainfluenza 2 (PCR) Not detected, Parainfluenza 3 (PCR) Not detected, Parainfluenza 4 (PCR) Not detected, RSV (PCR) Not detected, Entero/Rhino (PCR) Not detected 12/26/24 02:39: Specimen Source Right radial, O2 % 50, ABG pH 7.34 L, ABG pCO2 54.7 H, ABG pO2 70.2 L, ABG HCO3 28.7 H, ABG Total CO2 30.4 H, ABG O2 Saturation 92, ABG Base Excess 2.9 H, Emigdio Test Acceptable 12/26/24 06:13: WBC 9.6, RBC 3.04 L, Hgb 8.1 L, Hct 25.0 L, MCV 82.2, MCH 26.6 L, MCHC 32.4, RDW 18.2 H, Plt Count 107 L, MPV 10.7 H, Neut % (Auto) 96.1 H, Lymph % (Auto) 1.6 L, Storey % (Auto) 1.2 L, Eos % (Auto) 0.0 L, Baso % (Auto) 0.2, Neut # (Auto) 9.2 H, Lymph # (Auto) 0.2 L, Storey # (Auto) 0.1, Eos # (Auto) 0.0, Baso # (Auto) 0.0, Total Counted 100, Neutrophils % (Manual) 94 H, Band Neutrophils % 1.0, Lymphocytes % (Manual) 3 L, Monocytes % (Manual) 2, Platelet Estimate Slight decrease, RBC Morphology Normal, Hypochromasia 1+, Microcytosis 1+, Sodium 127 L, Potassium 4.1, Chloride 93 L, Carbon Dioxide 31 H, Anion Gap 7.1, BUN 10, Creatinine 0.50 L D, Estimated Creat Clear 43, Estimated GFR 124, Est GFR ( Amer) 150 D, Glucose 64 L D, Hemoglobin A1c 5.3, Lactate < 0.5 L, Calcium 8.4, Magnesium 1.6, TIBC 273, Total Bilirubin < 0.1 L, AST 21, ALT 16, Alkaline Phosphatase 107, NT-Pro-B Natriuret Pep 2720 H, Total Protein 5.6 L, Albumin 2.6 L, Globulin 3.0, Albumin/Globulin Ratio 0.9 L, Triglycerides 56, Cholesterol 111 L, LDL Cholesterol Direct 36.34 L, VLDL Cholesterol 11, HDL Cholesterol 50, Cholesterol/HDL Ratio 2.2, Vitamin B12 > 1000 H, Procalcitonin 0.062, TSH 0.86 D 12/26/24 09:35: VBG pH 7.40, VBG pCO2 45.4, VBG pO2 71.0 H, VBG HCO3 27.7, VBG Total CO2 29.1 H, VBG O2 Saturation 93.7 H, VBG Base Excess 2.9 H, VBG Lactic Acid 0.9 I & O for Labs for Last 24 Hours: Intake & Output 12/23/24 12/24/24 12/25/24 12/26/24 23:59 23:59 23:59 23:59 Intake Total 488.750 / 488.750 Output Total 715 / 715 Balance -226.250 / -226.250 Weight 107 lb 5 oz 108 lb 4.8 oz Microbiology Reports for the Last 24 Hours: Microbiology 12/25/24 16:10 Sputum - Expectorated Sputum Gram Stain - Final Constitutional: Present moderate distress and severe distress Head: Present normocephalic and atraumatic ENT: Present normal exam, normal oropharynx and mucous membranes moist Neck: Present normal inspection and full ROM Respiratory: Present rhonchi, wheezes, diminished air movement and able to speak in complete sentences Cardiac: Present S1/S2, Tachycardia and radial pulses present GI: Present soft and distention; Absent tenderness or guarding Rectal (female): Present deferred (female): Present deferred Skin: Present intact; Absent cyanosis or jaundice Neuro: Present alert, awake and oriented x 3 Extremities: Present normal inspection; Absent clubbing or cyanosis Psychiatric: Present normal affect and cooperative Meds Home Medications and Allergies Home Medications ?Medication ?Instructions ?Recorded ?Confirmed ?Type linaclotide 145 mcg capsule 145 mcg PO DAILY 01/16/22 12/25/24 History carvedilol 6.25 mg tablet 6.25 mg PO BID 12/18/24 12/25/24 History diclofenac sodium 75 mg 75 mg PO BIDP PRN ARTHRITIS PAIN 12/18/24 12/26/24 History tablet,delayed release fluticasone fur. 200 mcg-umeclid 1 inh inhalation DAILY 12/18/24 12/25/24 History 62.5 mcg-vilant 25 mcg inhalat.powder (Trelegy Ellipta) fluticasone propionate 50 1 spray intranasal DAILY 12/18/24 12/25/24 History mcg/actuation nasal spray,suspension lisinopril 10 mg tablet 10 mg PO DAILY 12/18/24 12/25/24 History omeprazole 20 mg capsule,delayed 20 mg PO DAILY 12/18/24 12/25/24 History release potassium chloride 20 mEq 20 meq PO DAILY 12/18/24 12/25/24 History tablet,extended release(part/cryst) rosuvastatin 10 mg tablet 10 mg PO HS 12/18/24 12/25/24 History nystatin 100,000 unit/mL oral 500,000 unit (5 mL) PO QID 10 days 12/19/24 12/25/24 Rx suspension #200 mL cetirizine 10 mg tablet 10 mg PO DAILY 12/26/24 12/26/24 History ergocalciferol (vitamin D2) 1,250 1,250 mcg PO WEEKLY 12/26/24 12/26/24 History mcg (50,000 unit) capsule New Prescriptions to Start Prescriptions: Allergies Allergy/AdvReac Type Severity Reaction Status Date / Time No Known Allergies Allergy Verified 12/25/24 15:02 Results Laboratory Findings 12/26/24 06:13 12/26/24 06:13 ABG ABG pH 7.34 mmol/L (7.35-7.45) L 12/26/24 02:39 ABG pCO2 54.7 mmhg (35.0-45.0) H 12/26/24 02:39 ABG pO2 70.2 mmhg (80-100) L 12/26/24 02:39 ABG O2 Saturation 92 % (90-100) 12/26/24 02:39 PT/INR, D-dimer PT 10.8 seconds (9.2-12.1) 12/25/24 14:37 INR 0.98 (0.9-1.1) 12/25/24 14:37 Abnormal lab findings: Abnormal Labs 12/25/24 12/25/24 12/25/24 14:35 14:37 19:14 RBC 3.29 L Hgb 8.6 L Hct 26.9 L MCH 26.1 L RDW 18.0 H Plt Count 100 L MPV 11.0 H Neut % (Auto) 89.4 H Lymph % (Auto) 5.5 L Storey % (Auto) Eos % (Auto) Neut # (Auto) Lymph # (Auto) 0.5 L Neutrophils % (Manual) Lymphocytes % (Manual) ABG pH ABG pCO2 ABG pO2 ABG HCO3 ABG Total CO2 ABG Base Excess VBG pCO2 54.9 H VBG pO2 42.0 H VBG Total CO2 31.0 H VBG O2 Saturation 75.5 H VBG Base Excess 3.7 H Sodium 125 L 124 L Chloride 89 L 90 L Carbon Dioxide 34 H 31 H Creatinine 0.40 L 0.40 L Glucose 71 L 196 H D Lactate Calcium 8.1 L Total Bilirubin NT-Pro-B Natriuret Pep 2070 H 2320 H Total Protein 5.8 L Albumin 2.8 L Albumin/Globulin Ratio 0.9 L Cholesterol LDL Cholesterol Direct Vitamin B12 Thyroxine (T4) 13.0 H 12/26/24 12/26/24 12/26/24 02:39 06:13 09:35 RBC 3.04 L Hgb 8.1 L Hct 25.0 L MCH 26.6 L RDW 18.2 H Plt Count 107 L MPV 10.7 H Neut % (Auto) 96.1 H Lymph % (Auto) 1.6 L Storey % (Auto) 1.2 L Eos % (Auto) 0.0 L Neut # (Auto) 9.2 H Lymph # (Auto) 0.2 L Neutrophils % (Manual) 94 H Lymphocytes % (Manual) 3 L ABG pH 7.34 L ABG pCO2 54.7 H ABG pO2 70.2 L ABG HCO3 28.7 H ABG Total CO2 30.4 H ABG Base Excess 2.9 H VBG pCO2 VBG pO2 71.0 H VBG Total CO2 29.1 H VBG O2 Saturation 93.7 H VBG Base Excess 2.9 H Sodium 127 L Chloride 93 L Carbon Dioxide 31 H Creatinine 0.50 L D Glucose 64 L D Lactate < 0.5 L Calcium Total Bilirubin < 0.1 L NT-Pro-B Natriuret Pep 2720 H Total Protein 5.6 L Albumin 2.6 L Albumin/Globulin Ratio 0.9 L Cholesterol 111 L LDL Cholesterol Direct 36.34 L Vitamin B12 > 1000 H Thyroxine (T4) Assessment and Plan *Assessment and plan (1) Right lower lobe pneumonia: Status: Acute Category: Medical Code(s): J18.9 - Pneumonia, unspecified organism (2) Acute respiratory failure with hypoxemia: Status: Acute Category: Medical Code(s): J96.01 - Acute respiratory failure with hypoxia (3) Pseudomonas pneumonia: Status: Acute Category: Medical Code(s): J15.1 - Pneumonia due to Pseudomonas (4) Unresolved pneumonia: Status: Acute Category: Medical Code(s): J18.9 - Pneumonia, unspecified organism Plan Ms. Kruse is a 64-year-old female with reported history of COPD hypertension CAD chronic hyponatremia recently discharged from the hospital for right lobar pneumonia on Augmentin presented with worsening respiratory distress found be hypotensive needing vasopressor support and pulmonary was called for further evaluation and management. Patient during her recent admission found to be having the right lower lobe dense consolidative changes, initiated on ceftriaxone and azithromycin on admission, discharged home on Augmentin. Current smoker greater than 30 PPD. At baseline not using oxygen supplementation during the daytime until most recent discharge. Prescribed nocturnal oxygen supplementation however has not been compliant. Chest x-ray from this morning continue to show right lower lobe airspace disease that appeared to be improved on recent admission. CTA upon admission evidence of pulmonary embolism. Continued symptoms of right lower lobe consolidative changes. Sputum cultures from most recent admission growing Enterococcus faecalis and Pseudomonas, Pseudomonas intermediate sensitive. Mild neutrophilic predominant leukocytosis. Comprehensive respiratory viral PCR panel negative On this admission was initiated on vancomycin and cefepime. On examination patient was on BiPAP therapy. Weaned to nasal cannula with saturations maintained at 90% and above. Bilateral rhonchorous breath sounds. Hemodynamically stable, off pressors Plan: No need for BiPAP therapy at this point of time. If desaturations noted will escalate to high flow nasal cannula. Continue oxygen supplementation via nasal cannula to maintain O2 saturation goal of 90% and above, currently having 3 to 4 L nasal cannula oxygen supplementation. Volume optimization per primary team, diuresing appropriately at this point of time DuoNebs every 4 hours along with Pulmicort Q12 scheduled Incentive spirometry and flutter valve Continue cefepime to complete a total of 10-day course. Follow with repeat blood and sputum cultures Continue vancomycin pending nasal MRSA PCR Follow-up with echocardiogram report # The CT scan on still concerning for nodular opacities in the right lower lobe along with lymphadenopathy though likely from infectious etiology at this point of time. Will follow after antibiotic treatment completion with repeat imaging as an outpatient basis
--- NOTE | 2024-12-26 11:30 | PC.NURSE ---
pt placed on 3 lpm by RT and Dr melo at this time
[2024-12-26 12:15] LABS: Iron 42 ug/dL (37-170)
[2024-12-26 12:49] LABS: Free T4 (Free Thyroxine) 1.37 ng/dl (0.78-2.19)
[2024-12-26 12:52] LABS: Ferritin 71.9 ng/ml (11.1-264)
[2024-12-26] MEDS: FLUTICASONE/UMECLIDIN/VILANTER 200/62.5/25MCG INHALER 1 PUFF IH (13:03)
--- NOTE | 2024-12-26 14:53 | HMH.PTEV ---
Physical Therapy Evaluation Rehab PT IP Evaluation Start: 12/25/24 21:36 Freq: ONCE Status: Active Protocol: Document 12/26/24 14:33 CHIKIFRED (Rec: 12/26/24 14:53 TERRELL [id number]) Subjective/History History History 64-year-old female with a medical history of COPD, hypertension, extensive smoking history, chronic hyponatremia, CAD presents with progressive functional decline, shortness of breath, productive cough. She was recently discharged about a week ago in stable condition after treatment for right lobar pneumonia. Patient states she did well for a few days at home and finished her course of Augmentin, however over the past few days she became increasingly short of breath, productive cough and profound weakness. She reports she lives with her significant other, 2 YANN the home, and she is generally independent with all mobility and ADLs without an AD. Subjective Subjective Pt reports feeling weak this pm, but agrees to OOB mobility assessment. Rehab PT IP Eval Objective Appearance Patient Behavior Appropriate Patient Orientation Person,Place,Time Difficulty following instructions none Speech Pattern Clear Ambulation Patient Able to Ambulate Yes Ambulation Observation IP General Gait Pattern Observation Shuffling Step Ambulation Distance (feet) 6 Ambulation Assistive Device None Ambulation Ability Minimal x 1 (25% assist) Balance Ability to Arise Able, uses arms to help Sitting Balance Steady, safe Standing Balance Steady, wide stance Dynamic Sitting Balance Ability Good Dynamic Standing Balance Ability Fair Transfers Bed Transfer Ability Contact Guard/Hand Hold Chair Transfer Ability Contact Guard/Hand Hold Sit to Stand Bed Transfer Ability Contact Guard/Hand Hold Sit to Stand Chair Transfer Ability Contact Guard/Hand Hold ROM All Extremities PT ROM Status WFL MMT All Extremities PT MMT WFL Rehab PT IP prob,goals,plan Problems Date of Evaluation: 12/26/24 PT IP Problems Bed Mobility,Transfers,Gait Rehab Potential Rehab Potential Good Plan PT Intervention Plan Bed Mobility,Transfers,Gait, Therapeutic Exercise PT Plan Frequency Daily Duration LOS Discharge Goals Bed Transfer Ability Supervision/Stand by Sit to Stand Chair Transfer Ability Supervision/Stand by Ambulation Assistive Device Rolling Walker Ambulation Distance (feet) 20 Discharge Plan PT Discharge Plan Pt is appropriate to return home at this time with family assistance. Skilled therapy is indicated to improve endurance to upright activity, increase ambulation ability, and improve transfers in order to return pt to [facility]. Eval Complexity Eval Charge Codes 74315 - High Complexity PHYSICIAN CERTIFICATION: I certify the specified therapy services for Marisa Kruse are required, authorized, and reviewed every 30 days.
--- NOTE | 2024-12-26 15:01 | HMH.OTEV ---
OT Inpatient Evaluation Rehab OT IP Evaluation Start: 12/25/24 21:36 Freq: ONCE Status: Active Protocol: Document 12/26/24 14:50 [facility] (Rec: 12/26/24 15:01 [facility] [id number]) Rehab OT IP Assessment Subjective History Pt oriented x 2 on arrival. Pt slightly confused. Pt admitted on 12/25/24 due to PNA and failure to thrive. History and physical: Marisa Kruse is a 64-year- old female with a medical history of COPD, hypertension, extensive smoking history, chronic hyponatremia, CAD presents with progressive functional decline, shortness of breath, productive cough. She was recently discharged about a week ago in stable condition after treatment for right lobar pneumonia. Patient states she did well for a few days at home and finished her course of Augmentin, however over the past few days she became increasingly short of breath, productive cough and profound weakness. She denies chest pain, abdominal pain. Patient at this time is not the best historian given her lethargy workup in the ED significant for WBC 8.1, sodium 125, BNP 2070. CTA revealed extensive right lower lobe pneumonia, hilar adenopathy. CT abdomen/ pelvis suggestive of fluid- filled bowels, and severely distended urinary bladder. Ramos was placed with significant urine output. Case discussed with ED provider and decision was made to admit patient for acute hypoxic respiratory failure secondary to pneumonia, and functional decline. Subjective Prior to being in the hospital , pt lived with her boyfriend. Pt claims normally she was independent with all ADLs and IADLs. Pt was not using any type of AE during functional transfers. Objective Patient Orientation Person,Birthday Right Upper Extremity Gross ROM Min Limitation <25% Left Upper Extremity Gross ROM Min Limitation <25% Shoulder ROM Limitations Muscle Weakness Elbow ROM Limitations Muscle Weakness Wrist Limitations of Range of Motion Muscle Weakness Bed Mobility bed mobility-scooting,bed mobility - supine/sit Assist Level Minimal x 1 (25% assist) Transfer Training Sit/Stand Transfer Assist Level Minimal x 1 (25% assist) Rehab OT IP prob,goals,plan Problems Date of Evaluation: 12/26/24 OT IP Problems Bed Mobility,Transfers,Balance ,Self care,Safety Rehab Potential Rehab Potential Good Equipment Needs Assistive Devices Rolling / Wheeled Walker Plan OT intervention Plan Bed Mobility,Transfers,Balance ,Self care,Safety,Therapeutic Exercise OT Plan Frequency Daily Duration LOS Discharge Goals Bed Mobility Ability Standby Assistance Sit to Stand Chair Transfer Ability Contact Guard/Hand Hold Chair Transfer Ability Contact Guard/Hand Hold, Minimal x 1 (25% assist) Chair Transfer Technique Sit to/from Ambulatory Chair Transfer Assistive Devices Rolling Walker Lower Body Dressing Ability Minimal Assistance Upper Body Dressing Ability Standby Assistance Bathing Ability Minimal Assistance Performing Toilet Hygiene Ability Minimal Assistance Overall Commode/Toilet Transfer Ability Contact Guard,Minimal Assistance Commode/Toilet Transfer Technique Sit to/from Ambulatory Commode/Toilet Transfer Assistive Grab Bars Devices Discharge Plan OT Discharge Plan Pt will continue to be seen for OT services while at [facility]. Pt would benefit from continued skilled therapy services upon discharge from hospital. Therapist recommends OT evaluation. Continued skilled therapy is important in order for patient to improve strength, safety, endurance, ADL independence, and functional transfers to reach PLOF. Eval Complexity Eval Charge Codes 26989 - Moderate Complexity PHYSICIAN CERTIFICATION: I certify the specified therapy services for Marisa Kruse are required, authorized, and reviewed every 30 days.
[2024-12-26 15:47] LABS: POC Glucose,Bedside 92 (70-110)
--- NOTE | 2024-12-26 17:03 | PC.NURSE ---
All patient care and documentation by Kristie ROBERTS was completed under my direct supervision. Nina Beal RN
--- NOTE | 2024-12-26 17:10 | PC.NURSE ---
Pt is sitting up in bed eating supper with assistance from staff. pt is a/o x 4 at this time with some slight confusion on details. nad noted. pt brother at bedside states that pt has experienced some confusion for the past 3-4 months and he has been concerned for dementia. pt tolerating 5lpm/nc with oxygen in the mid 90's. pt bp has remained stable with maps in the 70's since levophed drip was stopped at 1000 this am. pt is voiding clear yellow urine via motta catheter.
[2024-12-26] MEDS: PANTOPRAZOLE 40MG TABLET 40 MG PO (20:05)
--- NOTE | 2024-12-26 21:38 | P.PN_ITS ---
Subjective *Date: 12/26/24 *Time: 21:38 Exam Data for Last 24 hours Vital signs and Labs for Last 24 Hours: Temp Pulse Resp BP Pulse Ox O2 Del Method O2 Flow Rate 97.9 F 96 H 18 112/53 L 95 Nasal Cannula 5 12/26/24 15:30 12/26/24 20:00 12/26/24 18:00 12/26/24 18:00 12/26/24 18:00 12/26/24 20:00 12/26/24 20:00 FiO2 50 12/26/24 10:00 Laboratory Results - last 24 hr 12/25/24 21:54: Folate 18.40 12/26/24 00:03: Chlamy pneumoniae PCR Not detected, Adenovirus (PCR) Not detected, B. pertussis DNA (PCR) Not detected, Coronavirus OC43 (PCR) Not detected, Coronavirus HKU1 (PCR) Not detected, Coronavirus 229E (PCR) Not detected, SARS-CoV-2 (PCR) Not detected, Coronavirus NL63 (PCR) Not detected, Human Metapneumovir PCR Not detected, Influenza A (H1) PCR Not detected, Influ A (H1N1/09) PCR Not detected, Influenza A (H3) PCR Not detected, Influenza Type A (PCR) Not detected, Influenza Type B (PCR) Not detected, M. pneumoniae (PCR) Not detected, Parainfluenza 1 (PCR) Not detected, Parainfluenza 2 (PCR) Not detected, Parainfluenza 3 (PCR) Not detected, Parainfluenza 4 (PCR) Not detected, RSV (PCR) Not detected, Entero/Rhino (PCR) Not detected 12/26/24 02:39: Specimen Source Right radial, O2 % 50, ABG pH 7.34 L, ABG pCO2 54.7 H, ABG pO2 70.2 L, ABG HCO3 28.7 H, ABG Total CO2 30.4 H, ABG O2 Saturation 92, ABG Base Excess 2.9 H, Emigdio Test Acceptable 12/26/24 06:13: WBC 9.6, RBC 3.04 L, Hgb 8.1 L, Hct 25.0 L, MCV 82.2, MCH 26.6 L , MCHC 32.4, RDW 18.2 H, Plt Count 107 L, MPV 10.7 H, Neut % (Auto) 96.1 H, Lymph % (Auto) 1.6 L, [place] % (Auto) 1.2 L, Eos % (Auto) 0.0 L, Baso % (Auto) 0.2, Neut # (Auto) 9.2 H, Lymph # (Auto) 0.2 L, [place] # (Auto) 0.1, Eos # (Auto) 0.0, Baso # (Auto) 0.0, Total Counted 100, Neutrophils % (Manual) 94 H, Band Neutrophils % 1.0, Lymphocytes % (Manual) 3 L, Monocytes % (Manual) 2, Platelet Estimate Slight decrease, RBC Morphology Normal, Hypochromasia 1+, Microcytosis 1+, Sodium 127 L, Potassium 4.1, Chloride 93 L, Carbon Dioxide 31 H, Anion Gap 7.1, BUN 10, Creatinine 0.50 L D, Estimated Creat Clear 43, Estimated GFR 124, Est GFR ( Amer) 150 D, Glucose 64 L D, Hemoglobin A1c 5.3, Lactate < 0.5 L, Calcium 8.4, Magnesium 1.6, Iron 42, TIBC 273, Iron Saturation 15.80742, Ferr itin 71.9, Total Bilirubin < 0.1 L, AST 21, ALT 16, Alkaline Phosphatase 107, NT-Pro-B Natriuret Pep 2720 H, Total Protein 5.6 L, Albumin 2.6 L, Globulin 3.0, Albumin/Globulin Ratio 0.9 L, Triglycerides 56, Cholesterol 111 L, LDL Cholesterol Direct 36.34 L, VLDL Cholesterol 11, HDL Cholesterol 50, Cholesterol/HDL Ratio 2.2, Vitamin B12 > 1000 H, Procalcitonin 0.062, TSH 0.86 D, Free T4 1.37 12/26/24 09:35: VBG pH 7.40, VBG pCO2 45.4, VBG pO2 71.0 H, VBG HCO3 27.7, VBG Total CO2 29.1 H, VBG O2 Saturation 93.7 H, VBG Base Excess 2.9 H, VBG Lactic Acid 0.9 12/26/24 15:39: POC Glucose 92 I & O for Last 24 hours: Intake & Output 12/23/24 12/24/24 12/25/24 12/26/24 23:59 23:59 23:59 23:59 Intake Total 4 / 1289.750 / 1289.750 Output Total 2372 / 2372 Balance -1082.250 / -1082.250 Weight 48.676 kg 49 kg Microbiology Reports for the Last 24 Hours: Microbiology 12/25/24 14:37 Blood Blood Culture - Preliminary NO GROWTH AFTER 24 HOURS 12/25/24 14:37 Blood Blood Culture - Preliminary NO GROWTH AFTER 24 HOURS 12/25/24 16:10 Sputum - Expectorated Sputum Gram Stain - Final 12/25/24 16:10 Sputum - Expectorated Sputum Sputum Culture - Preliminary Gram Positive Cocci Assessment and Plan *Assessment and plan (1) Acute urinary retention: Status: Acute Category: Medical Code(s): R33.8 - Other retention of urine (2) Right lower lobe pneumonia: Status: Acute Category: Medical Code(s): J18.9 - Pneumonia, unspecified organism Plan Marisa Kruse is a 64-year-old female with a medical history of COPD, hypertension, extensive smoking history, chronic hyponatremia, CAD presents with progressive functional decline, shortness of breath, productive cough. She was recently discharged about a week ago in stable condition after treatment for right lobar pneumonia. Patient states she did well for a few days at home and finished her course of Augmentin, however over the past few days she became increasingly short of breath, productive cough and profound weakness. She denies chest pain, abdominal pain. Patient at this time is not the best historian given her lethargy workup in the ED significant for WBC 8.1, sodium 125, BNP 2070. CTA revealed extensive right lower lobe pneumonia, hilar adenopathy. CT abdomen/pelvis suggestive of fluid-filled bowels, and severely distended urinary bladder. Ramos was placed with significant urine output. Case discussed with ED provider and decision was made to admit patient for acute hypoxic respiratory failure secondary to pneumonia, and functional decline. #Acute hypoxic respiratory failure #Right lobar pneumonia #Hilar adenopathy #Functional decline, weight loss ? Discharged in stable condition about a week ago, unfortunately returns due to progressive shortness of breath and functional decline. ? CTA continues to reveal right lobar pneumonia. No leukocytosis or signs of sepsis at this time. ? CTA also reveals hilar adenopathy, and with patient's chronic hyponatremia and functional decline, weight loss this may represent cancer. ? Continue vancomycin, cefepime day 2. ? Follow-up procalcitonin, sputum culture, blood culture, MRSA nare. ? Pulmonology consulted, assisting with care as above. #Physical deconditioning #Functional decline #Severe protein calorie malnutrition ? PT/OT consulted, pending further recommendations. ? Will provide high-protein shakes with meals. ? Follow-up TFTs, B12, folate, vitamin D. #Urinary retention ? Conservatively distended bladder on CT, s/p Ramos insertion with significant output. ? Continue to monitor. #Chronic hyponatremia ? Sodium 125 on admission. Seems to have had a decline over the past few months. ? 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 ? Follow-up serum/urine osmolality, urine sodium, TSH, free T4, lipid panel, cortisol. ? Patient has severe nutritional deficiencies, so will not fluid restrict at this time. ? Will also hold off on salt tabs given significant third spacing at this time. #Elevated BNP ? Initial BNP 1999, with 2+ pitting edema. ? This may be related to heart failure and/or severe protein/nutritional deficiencies. ? Will hold off on diuresis due to soft pressures. ? Follow-up ECHO. ? Given IV Lasix 40 mg once a day. Follow-up response. #Hypertension ? Hold off on home BP meds given soft pressures. #GERD ? Resume home PPI Full code DVT prophylaxis: Lovenox 30 mg
[2024-12-27] VITALS (27 sets, daily range): BP systolic 117–145; BP diastolic 54–76; PULSE 90–120; RESP 14–27; TEMP 36.3–37.2; O2SAT 88–98; BMI 19.1
[2024-12-27] MEDS: CEFEPIME HCL 1 GM in 0.9 % SODIUM CHLORIDE 50 ML IV (06:17)
[2024-12-27] MEDS: FLUTICASONE/UMECLIDIN/VILANTER 200/62.5/25MCG INHALER 1 PUFF IH (06:58)
[2024-12-27 07:30] LABS: C-Reactive Protein 57.4 mg/L (0-4)
[2024-12-27 08:53] LABS: Vancomycin,Trough 14.1 ug/mL (5.0-10.0)
[2024-12-27 09:00] LABS: Basophils % 0.3 % (0.1-2.0); Eosinophils % 0.1 % (0.1-12.0); Hematocrit 23.1 % (37.0-47.0); Hemoglobin 7.3 g/dL (12.2-16.2); Lymphocytes # 0.3 K/mm3 (0.7-4.5); Lymphocytes % 4.6 % (10-50); Mean Corpuscular HGB Conc 31.6 g/dL (31.8-35.4); Mean Corpuscular Hemoglobin 26.4 pg (27.0-31.2); Mean Corpuscular Volume 83.4 fl (81-99); Mean Platelet Volume 10.1 fl (7.4-10.4); Monocytes # 0.5 K/mm3 (0.1-1.0); Monocytes % 6.5 % (1.7-9.3); Neutrophils % 87.3 % (37.0-80.0); Platelet Count 101 K/mm3 (142-424); Red Blood Count 2.77 M/mm3 (4.20-5.40); Red Cell Distribution Width 18.7 % (11.5-17.5); White Blood Count 6.9 K/mm3 (4.8-10.8)
[2024-12-27 09:03] LABS: Albumin Level 2.3 g/dl (3.5-5.0); Chloride 94 mmol/L (98-107); Potassium 3.7 mmoL/L (3.5-5.1); Sodium 131 mmol/L (136-145)
[2024-12-27 09:06] LABS: Alanine Aminotransferase 15 U/L (12-78); Albumin/Globulin Ratio 0.9 (1.1-1.8); Alkaline Phosphatase 90 U/L (38-126); Anion Gap 3.7 mEq/L (5-15); Aspartate Amino Transferase 20 U/L (14-36); Blood Urea Nitrogen 14 mg/dl (7-17); Calcium 8.2 mg/dl (8.4-10.2); Carbon Dioxide 37 mmol/L (22.0-30.0); Creatinine Clearance Estimated 46 mL/min (50-200); Estimated Glomerular Filt Rate 124 ml/min (>60); GFR (African American) 150 ML/MIN (>60); Globulin 2.6 g/dL (1.3-3.2); Glucose 67 mg/dl (74-100); Magnesium 1.6 mg/dl (1.6-2.3); Total Protein,Serum 4.9 g/dl (6.3-8.2)
[2024-12-27 09:14] LABS: Bilirubin,Total < 0.1 mg/dl (0.2-1.3)
[2024-12-27] MEDS: ENOXAPARIN 40MG/0.4ML SYRINGE 40 MG SUBCUT (09:58)
[2024-12-27] MEDS: VANCOMYCIN HCL 750 MG in 0.9 % SODIUM CHLORIDE 250 ML 125 MG IV ×2 (09:58→21:14)
[2024-12-27] MEDS: BUMETANIDE 1MG/4ML VIAL 1 MG IV (09:58)
[2024-12-27 11:19] LABS: POC Glucose,Bedside 102 (70-110)
--- NOTE | 2024-12-27 16:31 | EXP.PN ---
Subjective *Date: 01/01/25 *Time: 19:08 Interval history: Patient diuresed well, will switch to Bumex given low albumin. Still requiring Vapotherm. Exam Data for Last 24 hours Vital signs and Labs for Last 24 Hours: Temp Pulse Resp BP Pulse Ox O2 Del Method O2 Flow Rate 98.4 F 105 H 15 137/66 93 L Vapotherm 25 12/27/24 12:00 12/27/24 16:00 12/27/24 16:00 12/27/24 16:00 12/27/24 16:07 12/27/24 16:07 12/27/24 16:07 FiO2 55 12/27/24 16:07 Laboratory Results - last 24 hr 12/26/24 06:13: Cortisol 44.6 H 12/27/24 06:22: WBC 6.9 D, RBC 2.77 L, Hgb 7.3 L, Hct 23.1 L, MCV 83.4, MCH 26.4 L, MCHC 31.6 L, RDW 18.7 H, Plt Count 101 L, MPV 10.1, Neut % (Auto) 87.3 H, Lymph % (Auto) 4.6 L, [place] % (Auto) 6.5, Eos % (Auto) 0.1, Baso % (Auto) 0.3, Neut # (Auto) 6.0, Lymph # (Auto) 0.3 L, [place] # (Auto) 0.5, Eos # (Auto) 0.0, Baso # (Auto) 0.0, Sodium 131 L, Potassium 3.7, Chloride 94 L, Carbon Dioxide 37 H, Anion Gap 3.7 L, BUN 14 D, Creatinine 0.50 L, Estimated Creat Clear 46, Estimated GFR 124, Est GFR ( Amer) 150, Glucose 67 L, Calcium 8.2 L, Magnesium 1.6, Total Bilirubin < 0.1 L, AST 20, ALT 15, Alkaline Phosphatase 90, C-Reactive Protein 57.4 H, Total Protein 4.9 L, Albumin 2.3 L D, Globulin 2.6, Albumin/Globulin Ratio 0.9 L 12/27/24 08:04: Vancomycin Trough 14.1 H 12/27/24 11:12: POC Glucose 102 I & O for Last 24 hours: Intake & Output 02/12/12/25/24 12/26/24 12/27/24 23:59 23:59 23:59 23:59 Intake Total 1289.750 / 1289.750 520 / 520 Output Total 2472 / 2472 2310 / 2310 Balance -1182.250 / -1182.250 -1790 / -1790 Weight 48.676 kg 49 kg 52 kg Microbiology Reports for the Last 24 Hours: Microbiology 12/25/24 14:37 Blood Blood Culture - Preliminary NO GROWTH AFTER 48 HOURS 12/25/24 14:37 Blood Blood Culture - Preliminary NO GROWTH AFTER 48 HOURS 12/26/24 05:46 Anus CRE Surveillance Culture - Final Negative 12/25/24 16:10 Sputum - Expectorated Sputum Gram Stain - Final 12/25/24 16:10 Sputum - Expectorated Sputum Sputum Culture - Final Staphylococcus aureus Constitutional Constitutional: no acute distress and cachectic *Routine HEENT Exam Head: Present normocephalic Eye: Present EOMI and PERRL ENT: Present mucous membranes moist *Routine Neck Exam Neck: Present supple; Absent lymphadenopathy *Routine Respiratory Exam Respiratory: Present rhonchi and wheezes; Absent CTA bilaterally *Routine Cardiovascular Exam Cardiovascular: Present RRR *Routine Abdominal Exam Abdominal: Present soft and normoactive bowel sounds; Absent tenderness *Routine Extremities Exam Extremities: Absent cyanosis, clubbing or edema *Routine Skin Exam Skin: Present warm; Absent rash *Routine Neurological Exam Neurological: Present alert and oriented X3 Assessment and Plan *Assessment and plan (1) Acute urinary retention: Status: Acute Category: Medical Code(s): R33.8 - Other retention of urine (2) Right lower lobe pneumonia: Status: Acute Category: Medical Code(s): J18.9 - Pneumonia, unspecified organism Plan Marisa Kruse is a 64-year-old female with a medical history of COPD, hypertension, extensive smoking history, chronic hyponatremia, CAD presents with progressive functional decline, shortness of breath, productive cough. She was recently discharged about a week ago in stable condition after treatment for right lobar pneumonia. Patient states she did well for a few days at home and finished her course of Augmentin, however over the past few days she became increasingly short of breath, productive cough and profound weakness. She denies chest pain, abdominal pain. Patient at this time is not the best historian given her lethargy workup in the ED significant for WBC 8.1, sodium 125, BNP 2070. CTA revealed extensive right lower lobe pneumonia, hilar adenopathy. CT abdomen/pelvis suggestive of fluid-filled bowels, and severely distended urinary bladder. Ramos was placed with significant urine output. Case discussed with ED provider and decision was made to admit patient for acute hypoxic respiratory failure secondary to pneumonia, and functional decline. #Acute hypoxic respiratory failure #Right lobar pneumonia #Hilar adenopathy ? Discharged in stable condition about a week ago with Augmentin for right lower lobe pneumonia, unfortunately returns due to progressive shortness of breath and functional decline. ? Initial CTA continued to reveal right lobar pneumonia. No leukocytosis or signs of sepsis at this time. ? CTA also reveals hilar adenopathy and spoke with pulmonology, likely reactive at this time. ? Sputum culture growing MRSA. Discontinue cefepime. Blood cultures, procalcitonin normal. ? Continue vancomycin day 3. ? Requiring Vapotherm 25L 55% ? Pulmonology consulted, assisting with care as above. #Right heart failure #Elevated BNP ? Initial BNP 1999, with 3+ pitting edema. Likely further exacerbated by protein deficiencies. ? ECHO reveals moderate RV dilation, mildly reduced RV function. RVSP 50 to 55 mmHg ? Switched from Lasix to IV Bumex 1 mg daily, has had total -3000 output. ? Monitor renal function, electrolytes. Follow-up CMP in the morning #Physical deconditioning #Functional decline #Severe protein calorie malnutrition ? PT/OT consulted, recommended home with home health. ? Will provide high-protein shakes with meals. ? TFTs, B12, folate normal. Follow-up vitamin D. #Urinary retention ? Severely distended bladder on CT, s/p Ramos insertion with significant output. ? Will remove Ramos today. Continue to monitor. #Chronic hyponatremia ? Sodium 125 on admission. Seems to have had a decline over the past few months. ? 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 ? Follow-up serum/urine osmolality, urine sodium, TSH, free T4, lipid panel, cortisol. ? Patient has severe nutritional deficiencies, so will not fluid restrict at this time. ? Will also hold off on salt tabs given significant third spacing at this time. #Hypertension ? Hold off on home BP meds given soft pressures. #GERD ? Resume home PPI Full code DVT prophylaxis: Lovenox 30 mg
[2024-12-27 16:51] LABS: Albumin Level 2.8 g/dl (3.5-5.0); Chloride 90 mmol/L (98-107); Potassium 3.3 mmoL/L (3.5-5.1); Sodium 131 mmol/L (136-145)
[2024-12-27 16:53] LABS: Blood Urea Nitrogen 12 mg/dl (7-17); Creatinine Clearance Estimated 46 mL/min (50-200); Estimated Glomerular Filt Rate 100 ml/min (>60); GFR (African American) 121 ML/MIN (>60)
[2024-12-27 16:54] LABS: Alanine Aminotransferase 19 U/L (12-78); Albumin/Globulin Ratio 0.9 (1.1-1.8); Alkaline Phosphatase 97 U/L (38-126); Anion Gap 4.3 mEq/L (5-15); Aspartate Amino Transferase 27 U/L (14-36); Calcium 8.3 mg/dl (8.4-10.2); Carbon Dioxide 40 mmol/L (22.0-30.0); Globulin 3.1 g/dL (1.3-3.2); Glucose 88 mg/dl (74-100); Total Protein,Serum 5.9 g/dl (6.3-8.2)
[2024-12-27 16:58] LABS: POC Glucose,Bedside 92 (70-110)
[2024-12-27 17:14] LABS: Bilirubin,Total < 0.1 mg/dl (0.2-1.3)
--- NOTE | 2024-12-27 18:26 | PC.NURSE ---
pt has appeared to rest well this shift. she wanted to sleep and refused breakfast this time. pt received a bath right before lunch and was able to stay awake and eat 75% and drink her shake. pt appeared was able to work with PT and stood at bedside for approx 5 mins and tolerated this well. following PT, she slept until 1630 when her brother came to visit. pt is a/o x 4, with short periods of confusion. pt lungs contain scattered rhonchi, bowel sounds are active in all quads. pt has a hx of ibs and takes linzess. pt has not had a bm this admission. pt has redness to coccyx that is blanchable. and a old/scabbed sore to her fourth toe on her right foot. scattered scabs to legs. nad noted. pt remains on vapo @ . pt kalia was removed at [address]. [address], secured with mesh panties.
[2024-12-27] MEDS: PANTOPRAZOLE 40MG TABLET 40 MG PO (21:14)
[2024-12-28] VITALS (21 sets, daily range): BP systolic 100–160; BP diastolic 42–75; PULSE 76–100; RESP 12–22; TEMP 36.3–36.9; O2SAT 88–98; BMI 19.0
[2024-12-28] MEDS: FLUTICASONE/UMECLIDIN/VILANTER 200/62.5/25MCG INHALER 1 PUFF IH (06:05)
[2024-12-28 06:17] LABS: POC Glucose,Bedside 88 (70-110)
--- NOTE | 2024-12-28 08:26 | XR_ITS ---
PROCEDURE INFORMATION: Exam: XR Chest Exam date and time: 12/28/2024 11:12 AM Age: 64 years old Clinical indication: Other: Rll pnx, now on vapotherm TECHNIQUE: Imaging protocol: Radiologic exam of the chest. Views: 1 view. COMPARISON: CR XR CHEST PORTABLE 12/26/2024 8:56 AM FINDINGS: Lungs: Patchy and coalescent opacity in right lower lobe is not substantially changed from most recent exam. Pleural spaces: Small right parapneumonic pleural effusion Heart/Mediastinum: Heart size is top normal. Bones/joints: Status post right shoulder arthroplasty. Surgical changes are incidentally noted in the lower thoracic/upper lumbar spine. IMPRESSION: 1. There is redemonstration of right lower lobe pneumonia and parapneumonic effusion. 2. No substantial change since 12/26/2024
--- NOTE | 2024-12-28 08:26 | PC.NURSE ---
Decreased vapotherm settings to 25L, 60%
[2024-12-28 08:51] LABS: Albumin Level 2.6 g/dl (3.5-5.0); Chloride 88 mmol/L (98-107); Potassium 5.1 mmoL/L (3.5-5.1); Sodium 126 mmol/L (136-145)
[2024-12-28 08:53] LABS: Basophils % 0.5 % (0.1-2.0); Eosinophils % 0.4 % (0.1-12.0); Hematocrit 22.3 % (37.0-47.0); Lymphocytes # 0.4 K/mm3 (0.7-4.5); Lymphocytes % 7.4 % (10-50); Mean Corpuscular HGB Conc 31.4 g/dL (31.8-35.4); Mean Corpuscular Hemoglobin 26.4 pg (27.0-31.2); Mean Corpuscular Volume 84.2 fl (81-99); Mean Platelet Volume 10.3 fl (7.4-10.4); Monocytes # 0.4 K/mm3 (0.1-1.0); Monocytes % 7.4 % (1.7-9.3); Neutrophils # 4.6 K/mm3 (1.8-7.8); Neutrophils % 83.2 % (37.0-80.0); Platelet Count 100 K/mm3 (142-424); Red Blood Count 2.65 M/mm3 (4.20-5.40); Red Cell Distribution Width 18.8 % (11.5-17.5); White Blood Count 5.6 K/mm3 (4.8-10.8)
[2024-12-28 08:54] LABS: Alanine Aminotransferase 18 U/L (12-78); Albumin/Globulin Ratio 0.8 (1.1-1.8); Alkaline Phosphatase 43 U/L (38-126); Anion Gap 5.1 mEq/L (5-15); Aspartate Amino Transferase 46 U/L (14-36); Bilirubin,Total 0.5 mg/dl (0.2-1.3); Blood Urea Nitrogen 13 mg/dl (7-17); Calcium 7.9 mg/dl (8.4-10.2); Carbon Dioxide 38 mmol/L (22.0-30.0); Creatinine Clearance Estimated 46 mL/min (50-200); Estimated Glomerular Filt Rate 160 ml/min (>60); GFR (African American) 194 ML/MIN (>60); Globulin 3.1 g/dL (1.3-3.2); Glucose 99 mg/dl (74-100); Magnesium 1.6 mg/dl (1.6-2.3); Total Protein,Serum 5.7 g/dl (6.3-8.2)
[2024-12-28] MEDS: VANCOMYCIN HCL 750 MG in 0.9 % SODIUM CHLORIDE 250 ML 125 MG IV ×2 (09:01→20:10)
[2024-12-28] MEDS: ENOXAPARIN 40MG/0.4ML SYRINGE 40 MG SUBCUT (09:04)
[2024-12-28] MEDS: BUMETANIDE 1 MG TABLET PO ×2 (09:04→17:01)
--- NOTE | 2024-12-28 10:35 | PC.NURSE ---
report called to MONO Tovar @ this time. pt is going to room 217
[2024-12-28 11:40] LABS: POC Glucose,Bedside 108 (70-110)
[2024-12-28] MEDS: MAGNESIUM SULFATE IN WATER 2 GM/50 ML PIGGYBACK IV ×2 (11:50→12:44)
[2024-12-28 13:09] LABS: Adrenocorticotropic Hormone <1.5 pg/mL (7.2-63.3)
[2024-12-28 14:15] LABS: Legionella pneumophila Urinary Negative (Negative)
--- NOTE | 2024-12-28 15:11 | PC.NURSE ---
Pt bladder scanned at 1440 due to not urinating sice motta removal yesterday and straight cath over night. Bladder scan showed 1100mls of urine in pt's bladder. pt endorsed feeling abdominal pressure/stretching but no urge to pee. made aware and stated to place a motta. 16F motta cath placed at 1500. urine sample sent to lab.
[2024-12-28 15:37] LABS: Microscopic, Urine URINE MICROSCOPIC (MICROSCOPIC)
[2024-12-28 15:45] LABS: Appearance,Urine CLEAR (Clear); Bilirubin,Urine Negative (Negative); Blood, Urine Negative (Negative); Color,Urine YELLOW (Yellow); Glucose,Urine (UA) Negative (Negative); Ketones,Urine Negative (Negative); Leukocyte Esterase,Urine Negative (Negative); Nitrate,Urine Negative (Negative); PH,Urine 6.5 (5.0-8.5); Protein,Urine Negative (Negative); Specific Gravity, Urine 1.015 (1.005-1.030); Urobilinogen,Urine 0.2 EU/dl (0.2)
[2024-12-28 15:55] LABS: WBC,Urine Occasional #/hpf (0-3)
--- NOTE | 2024-12-28 18:00 | PC.NURSE ---
Pt has done fair since this RN took over pt care. She has had to be educated multiple times to not take her vapo therm off because she quickly desats into the 50's and her lips turn blue. Around 1440 this afternoon she was bladder scanned again showing over 1,000 mls of urine in her bladder. stated to place a motta. Motta is draining adequate amounts of clear yellow urine. stated that pt would most likely be discharged with the motta based on how severe her retention has been and her inability to feel like she has to pee. vss.
[2024-12-28] MEDS: PANTOPRAZOLE 40MG TABLET 40 MG PO (20:10)
--- NOTE | 2024-12-28 22:36 | EXP.PN ---
Subjective *Date: 12/28/24 *Time: 22:36 Interval history: Patient much more alert, oriented, active today. Denies chest pain, shortness of breath. Continues to require Vapotherm, will wean as tolerated. Continue vancomycin, consider repeat CT chest tomorrow. Exam Data for Last 24 hours Vital signs and Labs for Last 24 Hours: Temp Pulse Resp BP Pulse Ox O2 Del Method O2 Flow Rate 97.3 F L 91 H 21 144/75 H 97 Vapotherm 20 12/28/24 20:00 12/28/24 22:00 12/28/24 22:00 12/28/24 22:00 12/28/24 22:00 12/28/24 22:00 12/28/24 19:47 FiO2 55 12/28/24 19:47 Laboratory Results - last 24 hr 12/25/24 16:30: Ur L.pneumophila Ag Negative 12/26/24 10:52: ACTH <1.5 L 12/27/24 06:22: Cortisol 17.7 12/28/24 06:03: POC Glucose 88 12/28/24 08:20: WBC 5.6, RBC 2.65 L, Hgb 7.0 L, Hct 22.3 L, MCV 84.2, MCH 26.4 L, MCHC 31.4 L, RDW 18.8 H, Plt Count 100 L, MPV 10.3, Neut % (Auto) 83.2 H, Lymph % (Auto) 7.4 L, [place] % (Auto) 7.4, Eos % (Auto) 0.4, Baso % (Auto) 0.5, Neut # (Auto) 4.6, Lymph # (Auto) 0.4 L, [place] # (Auto) 0.4, Eos # (Auto) 0.0, Baso # (Auto) 0.0, Sodium 126 L, Potassium 5.1 D, Chloride 88 L, Carbon Dioxide 38 H, Anion Gap 5.1, BUN 13, Creatinine 0.40 L D, Estimated Creat Clear 46, Estimated GFR 160, Est GFR ( Amer) 194 D, Glucose 99, Calcium 7.9 L, Magnesium 1.6, Total Bilirubin 0.5, AST 46 H D, ALT 18, Alkaline Phosphatase 43, Total Protein 5.7 L, Albumin 2.6 L, Globulin 3.1, Albumin/Globulin Ratio 0.8 L 12/28/24 11:29: POC Glucose 108 12/28/24 15:00: Urine Color Yellow, Urine Appearance Clear, Urine pH 6.5, Ur Specific [place] 1.015, Urine Protein Negative, Urine Glucose (UA) Negative, Urine Ketones Negative, Urine Blood Negative, Urine Nitrate Negative, Urine Bilirubin Negative, Urine Urobilinogen 0.2, Ur Leukocyte Esterase Negative, Urine RBC None, Urine WBC Occasional, Ur Squamous Epith Cells 3-5, Urine Bacteria None I & O for Last 24 hours: Intake & Output 12/25/24 12/26/24 12/27/24 12/28/24 23:59 23:59 23:59 23:59 Intake Total 304 1289.750 / 7318.113 3014 / 1190 1890 / 1890 Output Total 2472 / 2472 2760 / 2760 2450 / 2450 Balance 304 -1182.250 / -1182.250 -1570 / -1570 -560 / -560 Weight 48.676 kg 49 kg 52 kg 51.785 kg Constitutional Constitutional: no acute distress and cachectic *Routine HEENT Exam Head: Present normocephalic Eye: Present EOMI and PERRL ENT: Present mucous membranes moist *Routine Neck Exam Neck: Present supple; Absent lymphadenopathy *Routine Respiratory Exam Respiratory: Present CTA bilaterally *Routine Cardiovascular Exam Cardiovascular: Present RRR *Routine Abdominal Exam Abdominal: Present soft and normoactive bowel sounds; Absent tenderness *Routine Extremities Exam Extremities: Absent cyanosis, clubbing or edema *Routine Skin Exam Skin: Present warm; Absent rash *Routine Neurological Exam Neurological: Present alert and oriented X3 Assessment and Plan *Assessment and plan (1) Acute urinary retention: Status: Acute Category: Medical Code(s): R33.8 - Other retention of urine (2) Right lower lobe pneumonia: Status: Acute Category: Medical Code(s): J18.9 - Pneumonia, unspecified organism Plan Marisa Kruse is a 64-year-old female with a medical history of COPD, hypertension, extensive smoking history, chronic hyponatremia, CAD presents with progressive functional decline, shortness of breath, productive cough. She was recently discharged about a week ago in stable condition after treatment for right lobar pneumonia. Patient states she did well for a few days at home and finished her course of Augmentin, however over the past few days she became increasingly short of breath, productive cough and profound weakness. She denies chest pain, abdominal pain. Patient at this time is not the best historian given her lethargy workup in the ED significant for WBC 8.1, sodium 125, BNP 2070. CTA revealed extensive right lower lobe pneumonia, hilar adenopathy. CT abdomen/pelvis suggestive of fluid-filled bowels, and severely distended urinary bladder. Ramos was placed with significant urine output. Case discussed with ED provider and decision was made to admit patient for acute hypoxic respiratory failure secondary to pneumonia, and functional decline. #Acute hypoxic respiratory failure #Right lobar pneumonia #Hilar adenopathy ? Discharged in stable condition about a week ago with Augmentin for right lower lobe pneumonia, unfortunately returns due to progressive shortness of breath and functional decline. ? Initial CTA continued to reveal right lobar pneumonia. No leukocytosis or signs of sepsis at this time. ? CTA also reveals hilar adenopathy and spoke with pulmonology, likely reactive at this time. ? Sputum culture growing MRSA. Discontinued cefepime. Blood cultures negative. ? Continue vancomycin day 4. Will discuss with pulmonology if this can be transitioned to linezolid on discharge. ? Requiring Vapotherm 20L 55%, continue to wean as tolerated. ? Pulmonology consulted, assisting with care as above. #Right heart failure #Elevated BNP ? Initial BNP 2000, with 3+ pitting edema. Likely further exacerbated by protein deficiencies. ? ECHO reveals moderate RV dilation, mildly reduced RV function. RVSP 50 to 55 mmHg ? Continue Bumex 1 mg twice daily. Total net -3300 mL. ? Creatinine 0.4, stable. ? Monitor renal function, electrolytes. Follow-up CMP in the morning #Physical deconditioning #Functional decline #Severe protein calorie malnutrition ? PT/OT consulted, recommended home with home health. ? Will provide high-protein shakes with meals. ? TFTs, B12, folate normal. Follow-up vitamin D. #Urinary retention ? Severely distended bladder on CT, s/p Ramos insertion with significant output. ? Voiding challenge failed, Ramos reinserted. Will likely need this on discharge, will refer to urology. #Chronic hyponatremia ? Sodium 125 on admission. Seems to have had a decline over the past few months. ? There is hilar adenopathy on CTA chest, which may represent possible malignancy especially in the setting of chronic hyponatremia/possible SIADH. ? Follow-up serum/urine osmolality. ? Patient has severe nutritional deficiencies, so will not fluid restrict at this time. ? Will also hold off on salt tabs right heart failure. #Hypertension ? Hold off on home BP meds given soft pressures. #GERD ? Resume home PPI Full code DVT prophylaxis: Lovenox 30 mg
[2024-12-29] VITALS (20 sets, daily range): BP systolic 114–162; BP diastolic 51–80; PULSE 70–100; RESP 14–23; TEMP 35.9–36.8; O2SAT 91–100; BMI 18.2
--- NOTE | 2024-12-29 04:56 | PC.NURSE ---
Patient is alert and oriented. Did not sleep much, rested intermittently later in the shift. Remains on vapotherm, O2 sat >90%. Lung sounds scattered expiratory wheezing. No complaints from patient. Ramos in place and draining light yellow urine. Incontinent of the bowel. Call light in reach. Bed alarm on.
[2024-12-29] MEDS: FLUTICASONE/UMECLIDIN/VILANTER 200/62.5/25MCG INHALER 1 PUFF IH (06:14)
[2024-12-29] MEDS: BUMETANIDE 1 MG TABLET PO (08:02)
[2024-12-29] MEDS: VANCOMYCIN HCL 750 MG in 0.9 % SODIUM CHLORIDE 250 ML 125 MG IV (08:02)
[2024-12-29 08:03] LABS: Basophils % 0.3 % (0.1-2.0); Eosinophils % 0.4 % (0.1-12.0); Hematocrit 24.1 % (37.0-47.0); Lymphocytes # 0.3 K/mm3 (0.7-4.5); Lymphocytes % 3.8 % (10-50); Mean Corpuscular HGB Conc 32.4 g/dL (31.8-35.4); Mean Corpuscular Hemoglobin 26.4 pg (27.0-31.2); Mean Corpuscular Volume 81.4 fl (81-99); Mean Platelet Volume 9.9 fl (7.4-10.4); Monocytes # 0.4 K/mm3 (0.1-1.0); Monocytes % 5.3 % (1.7-9.3); Neutrophils # 6.7 K/mm3 (1.8-7.8); Neutrophils % 88.6 % (37.0-80.0); Platelet Count 108 K/mm3 (142-424); Red Blood Count 2.96 M/mm3 (4.20-5.40); Red Cell Distribution Width 18.3 % (11.5-17.5); White Blood Count 7.6 K/mm3 (4.8-10.8)
[2024-12-29 08:11] LABS: Albumin Level 2.9 g/dl (3.5-5.0); Chloride 77 mmol/L (98-107); Sodium 121 mmol/L (136-145)
[2024-12-29 08:14] LABS: Alanine Aminotransferase 20 U/L (12-78); Albumin/Globulin Ratio 0.9 (1.1-1.8); Alkaline Phosphatase 99 U/L (38-126); Aspartate Amino Transferase 33 U/L (14-36); Bilirubin,Total 0.2 mg/dl (0.2-1.3); Blood Urea Nitrogen 9 mg/dl (7-17); Calcium 7.8 mg/dl (8.4-10.2); Creatinine Clearance Estimated 44 mL/min (50-200); Estimated Glomerular Filt Rate 124 ml/min (>60); GFR (African American) 150 ML/MIN (>60); Globulin 3.3 g/dL (1.3-3.2); Glucose 90 mg/dl (74-100); Magnesium 1.8 mg/dl (1.6-2.3); Total Protein,Serum 6.2 g/dl (6.3-8.2)
[2024-12-29] MEDS: ENOXAPARIN 40MG/0.4ML SYRINGE 40 MG SUBCUT (08:20)
[2024-12-29 08:23] LABS: Potassium 2.9 mmoL/L (3.5-5.1)
[2024-12-29 08:41] LABS: Hemoglobin 7.8 g/dL (12.2-16.2)
[2024-12-29 08:58] LABS: Anion Gap 7.9 mEq/L (5-15); Carbon Dioxide 39 mmol/L (22.0-30.0)
[2024-12-29] MEDS: SODIUM CHLORIDE 1,000MG TABLET 1000 MG PO ×2 (09:42→12:06)
[2024-12-29] MEDS: POTASSIUM CHLORIDE 20MEQ TAB 40 MEQ PO ×2 (09:42→12:06)
--- NOTE | 2024-12-29 09:48 | EXP.PULM.PN ---
Subjective *Date: 12/29/24 *Time: 11:23 Interval history: Respiratory events over the weekend. Patient admits improvement respiratory symptoms. Pulmonology Exam Inpatient Vital signs and Labs for Last 24 Hours: Temp Pulse Resp BP Pulse Ox O2 Del Method O2 Flow Rate 97.5 F L 90 18 162/80 H 96 Vapotherm 20 12/29/24 08:00 12/29/24 08:00 12/29/24 08:00 12/29/24 08:00 12/29/24 08:00 12/29/24 08:10 12/29/24 08:10 FiO2 55 12/29/24 08:10 Laboratory Results - last 24 hr 12/25/24 16:30: Ur L.pneumophila Ag Negative 12/26/24 10:52: ACTH <1.5 L 12/28/24 11:29: POC Glucose 108 12/28/24 15:00: Urine Color Yellow, Urine Appearance Clear, Urine pH 6.5, Ur Specific [place] 1.015, Urine Protein Negative, Urine Glucose (UA) Negative, Urine Ketones Negative, Urine Blood Negative, Urine Nitrate Negative, Urine Bilirubin Negative, Urine Urobilinogen 0.2, Ur Leukocyte Esterase Negative, Urine RBC None, Urine WBC Occasional, Ur Squamous Epith Cells 3-5, Urine Bacteria None 12/29/24 07:51: WBC 7.6 D, RBC 2.96 L, Hgb 7.8 L D, Hct 24.1 L, MCV 81.4, MCH 26.4 L, MCHC 32.4, RDW 18.3 H, Plt Count 108 L, MPV 9.9, Neut % (Auto) 88.6 H, Lymph % (Auto) 3.8 L, [place] % (Auto) 5.3, Eos % (Auto) 0.4, Baso % (Auto) 0.3, Neut # (Auto) 6.7, Lymph # (Auto) 0.3 L, [place] # (Auto) 0.4, Eos # (Auto) 0.0, Baso # (Auto) 0.0, Sodium 121 L, Potassium 2.9 L* D, Chloride 77 L, Carbon Dioxide 39 H, Anion Gap 7.9, BUN 9 D, Creatinine 0.50 L D, Estimated Creat Clear 44, Estimated GFR 124, Est GFR ( Amer) 150 D, Glucose 90, Calcium 7.8 L, Magnesium 1.8 D, Total Bilirubin 0.2, AST 33 D, ALT 20, Alkaline Phosphatase 99, Total Protein 6.2 L, Albumin 2.9 L D, Globulin 3.3 H, Albumin/Globulin Ratio 0.9 L Temp Pulse Resp BP Pulse Ox O2 Del Method O2 Flow Rate 98.7 F 120 H 17 123/53 L 97 BiPAP 3 12/26/24 08:00 12/26/24 08:00 12/26/24 08:00 12/26/24 08:25 12/26/24 08:00 12/26/24 09:25 12/26/24 02:00 FiO2 35 12/26/24 07:52 Laboratory Results - last 24 hr 12/25/24 14:17: SARS-CoV-2 (PCR) Not detected, Influenza A Untype (PCR) Not detected, Influenza Type B (PCR) Not detected 12/25/24 14:35: VBG pH 7.35, VBG pCO2 54.9 H, VBG pO2 42.0 H, VBG HCO3 29.4, VBG Total CO2 31.0 H, VBG O2 Saturation 75.5 H, VBG Base Excess 3.7 H, VBG Lactic Acid 0.9 12/25/24 14:37: WBC 8.1, RBC 3.29 L, Hgb 8.6 L, Hct 26.9 L, MCV 81.8, MCH 26.1 L, MCHC 32.0, RDW 18.0 H, Plt Count 100 L, MPV 11.0 H, Neut % (Auto) 89.4 H, Lymph % (Auto) 5.5 L, [place] % (Auto) 4.1, Eos % (Auto) 0.2, Baso % (Auto) 0.1, Neut # (Auto) 7.3, Lymph # (Auto) 0.5 L, [place] # (Auto) 0.3, Eos # (Auto) 0.0, Baso # (Auto) 0.0, PT 10.8, INR 0.98, Sodium 125 L, Potassium 4.2, Chloride 89 L, Carbon Dioxide 34 H, Anion Gap 6.2, BUN 12, Creatinine 0.40 L, Estimated Creat Clear 40, Estimated GFR 160, Est GFR ( Amer) 194, Glucose 71 L, Calcium 8.6, Phosphorus 3.2, Magnesium 1.6, Total Bilirubin 0.2, AST 26, ALT 18, Alkaline Phosphatase 85, Troponin I < 0.01, NT-Pro-B Natriuret Pep 2070 H, Total Protein 5.8 L, Albumin 2.8 L, Globulin 3.0, Albumin/Globulin Ratio 0.9 L, TSH 1.44, Thyroxine (T4) 13.0 H 12/25/24 16:30: Urine Color Yellow, Urine Appearance Clear, Urine pH 6.5, Ur Specific [place] 1.010, Urine Protein Negative, Urine Glucose (UA) Negative, Urine Ketones Negative, Urine Blood Negative, Urine Nitrate Negative, Urine Bilirubin Negative, Urine Urobilinogen 0.2, Ur Leukocyte Esterase Negative, Urine RBC None, Urine WBC None, Ur Squamous Epith Cells Occasional, Urine Bacteria Trace 12/25/24 17:25: Troponin I < 0.01 12/25/24 18:53: POC Glucose 71 12/25/24 19:14: Sodium 124 L, Potassium 3.7, Chloride 90 L, Carbon Dioxide 31 H, Anion Gap 6.7, BUN 11, Creatinine 0.40 L, Estimated Creat Clear 43, Estimated GFR 160, Est GFR ( Amer) 194, Glucose 196 H D, Calcium 8.1 L, Troponin I < 0.01, NT-Pro-B Natriuret Pep 2320 H 12/25/24 19:55: Troponin I < 0.01 12/25/24 21:54: Folate 18.40 12/26/24 00:03: Chlamy pneumoniae PCR Not detected, Adenovirus (PCR) Not detected, B. pertussis DNA (PCR) Not detected, Coronavirus OC43 (PCR) Not detected, Coronavirus HKU1 (PCR) Not detected, Coronavirus 229E (PCR) Not detected, SARS-CoV-2 (PCR) Not detected, Coronavirus NL63 (PCR) Not detected, Human Metapneumovir PCR Not detected, Influenza A (H1) PCR Not detected, Influ A (H1N1/09) PCR Not detected, Influenza A (H3) PCR Not detected, Influenza Type A (PCR) Not detected, Influenza Type B (PCR) Not detected, M. pneumoniae (PCR) Not detected, Parainfluenza 1 (PCR) Not detected, Parainfluenza 2 (PCR) Not detected, Parainfluenza 3 (PCR) Not detected, Parainfluenza 4 (PCR) Not detected, RSV (PCR) Not detected, Entero/Rhino (PCR) Not detected 12/26/24 02:39: Specimen Source Right radial, O2 % 50, ABG pH 7.34 L, ABG pCO2 54.7 H, ABG pO2 70.2 L, ABG HCO3 28.7 H, ABG Total CO2 30.4 H, ABG O2 Saturation 92, ABG Base Excess 2.9 H, Emigdio Test Acceptable 12/26/24 06:13: WBC 9.6, RBC 3.04 L, Hgb 8.1 L, Hct 25.0 L, MCV 82.2, MCH 26.6 L, MCHC 32.4, RDW 18.2 H, Plt Count 107 L, MPV 10.7 H, Neut % (Auto) 96.1 H, Lymph % (Auto) 1.6 L, [place] % (Auto) 1.2 L, Eos % (Auto) 0.0 L, Baso % (Auto) 0.2, Neut # (Auto) 9.2 H, Lymph # (Auto) 0.2 L, [place] # (Auto) 0.1, Eos # (Auto) 0.0, Baso # (Auto) 0.0, Total Counted 100, Neutrophils % (Manual) 94 H, Band Neutrophils % 1.0, Lymphocytes % (Manual) 3 L, Monocytes % (Manual) 2, Platelet Estimate Slight decrease, RBC Morphology Normal, Hypochromasia 1+, Microcytosis 1+, Sodium 127 L, Potassium 4.1, Chloride 93 L, Carbon Dioxide 31 H, Anion Gap 7.1, BUN 10, Creatinine 0.50 L D, Estimated Creat Clear 43, Estimated GFR 124, Est GFR ( Amer) 150 D, Glucose 64 L D, Hemoglobin A1c 5.3, Lactate < 0.5 L, Calcium 8.4, Magnesium 1.6, TIBC 273, Total Bilirubin < 0.1 L, AST 21, ALT 16, Alkaline Phosphatase 107, NT-Pro-B Natriuret Pep 2720 H, Total Protein 5.6 L, Albumin 2.6 L, Globulin 3.0, Albumin/Globulin Ratio 0.9 L, Triglycerides 56, Cholesterol 111 L, LDL Cholesterol Direct 36.34 L, VLDL Cholesterol 11, HDL Cholesterol 50, Cholesterol/HDL Ratio 2.2, Vitamin B12 > 1000 H, Procalcitonin 0.062, TSH 0.86 D 12/26/24 09:35: VBG pH 7.40, VBG pCO2 45.4, VBG pO2 71.0 H, VBG HCO3 27.7, VBG Total CO2 29.1 H, VBG O2 Saturation 93.7 H, VBG Base Excess 2.9 H, VBG Lactic Acid 0.9 I & O for Labs for Last 24 Hours: Intake & Output 12/26/24 12/27/24 12/28/24 12/29/24 23:59 23:59 23:59 23:59 Intake Total 1289.750 / 1792.126 8587 / 1190 1890 / 2070 780 / 780 Output Total 2472 / 2472 2760 / 2760 2450 / 2450 600 / 600 Balance -1182.250 / -1182.250 -1570 / -1570 -560 / -380 180 / 180 Weight 108 lb 0.424 oz 114 lb 10.246 oz 114 lb 2.662 oz 109 lb 4.8 oz Intake & Output 12/23/24 12/24/24 12/25/24 12/26/24 23:59 23:59 23:59 23:59 Intake Total 4 / 304 488.750 / 488.750 Output Total 715 / 715 Balance 4 / 304 -226.250 / -226.250 Weight 107 lb 5 oz 108 lb 4.8 oz Microbiology Reports for the Last 24 Hours: Microbiology 12/25/24 16:10 Sputum - Expectorated Sputum Gram Stain - Final Constitutional: Present moderate distress and severe distress Head: Present normocephalic and atraumatic ENT: Present normal exam, normal oropharynx and mucous membranes moist Neck: Present normal inspection and full ROM Respiratory: Present respiratory distress, rhonchi and able to speak in complete sentences; Absent wheezes Cardiac: Present S1/S2, Tachycardia and radial pulses present GI: Present soft and distention; Absent tenderness or guarding Rectal (female): Present deferred (female): Present deferred Skin: Present intact; Absent cyanosis or jaundice Neuro: Present alert, awake and oriented x 3 Extremities: Present normal inspection; Absent clubbing or cyanosis Psychiatric: Present normal affect and cooperative Assessment and Plan *Assessment and plan (1) Right lower lobe pneumonia: Status: Acute Category: Medical Code(s): J18.9 - Pneumonia, unspecified organism (2) Acute respiratory failure with hypoxemia: Status: Acute Category: Medical Code(s): J96.01 - Acute respiratory failure with hypoxia (3) Unresolved pneumonia: Status: Acute Category: Medical Code(s): J18.9 - Pneumonia, unspecified organism (4) MRSA pneumonia: Status: Acute Category: Medical Code(s): J15.212 - Pneumonia due to Methicillin resistant Staphylococcus aureus Plan Ms. Kruse is a 64-year-old female with reported history of COPD hypertension CAD chronic hyponatremia recently discharged from the hospital for right lobar pneumonia on Augmentin presented with worsening respiratory distress found be hypotensive needing vasopressor support and pulmonary was called for further evaluation and management. Patient during her recent admission found to be having the right lower lobe dense consolidative changes, initiated on ceftriaxone and azithromycin on admission, discharged home on Augmentin. Current smoker greater than 30 PPD. At baseline not using oxygen supplementation during the daytime until most recent discharge. Prescribed nocturnal oxygen supplementation however has not been compliant. Chest x-ray from this morning continue to show right lower lobe airspace disease that appeared to be improved on recent admission. CTA upon admission evidence of pulmonary embolism. Continued symptoms of right lower lobe consolidative changes. No sputum cultures available from recent admission. Mild neutrophilic predominant leukocytosis. Comprehensive respiratory viral PCR panel negative On this admission was initiated on vancomycin and cefepime. On examination patient was on BiPAP therapy. Weaned to nasal cannula with saturations maintained at 90% and above. Bilateral rhonchorous breath sounds. Hemodynamically stable, off pressors. Interval Update: Sputum Cultures MRSA on vancomycin. CXR 12/28/24 RLL PNM, improving. On high flow nasal cannula this morning saturating 99%. Weaned to 4 L with saturations maintained at 90% and abve CT chest from this morning reviewed, worsening right lower lobe consolidative changes and a small right effusion. Afebrile. Hemodynamically stable. Stable leukocytosis. Plan: Incentive spirometry and flutter valve. Continue oxygen supplementation to maintain O2 saturation of 90% and above DuoNebs every 6 hours along with Pulmicort Q12 scheduled Incentive spirometry and flutter valve Continue vancomycin for MRSA pneumonia to complete a 10 day course. # The CT scan on still concerning for nodular opacities in the right lower lobe along with lymphadenopathy though likely from infectious etiology at this point of time. Will follow after antibiotic treatment completion with repeat imaging as an outpatient basis
[2024-12-29] MEDS: MAGNESIUM SULFATE IN WATER 2 GM/50 ML PIGGYBACK IV (10:11)
--- NOTE | 2024-12-29 10:20 | CT_ITS ---
FINAL REPORT TECHNIQUE: Thin section axial images were obtained from the lung apices through the upper abdomen without contrast. This study was performed with techniques to keep radiation doses as low as reasonably achievable (ALARA). Individualized dose reduction techniques using automated exposure control or adjustment of mA and/or kV according to the patient's size were employed. CLINICAL HISTORY: Worsening hypoxia COMPARISON: 12/25/2024 FINDINGS: There is no axillary adenopathy present. There is stable mediastinal adenopathy when compared with the prior exam. There is also a stable dilated ascending aorta and enlarged main pulmonary arteries. Cardiomegaly is also noted, stable. There are new small bilateral pleural effusions. A small pericardial effusion is present, stable. There has been interval worsening of bilateral lower lobe consolidation. Underlying emphysema remains present, stable in appearance. There is a mixed density nodule in the right middle lobe, best seen on image #162 of series 3, stable. Limited, unenhanced evaluation of the upper abdomen is without acute abnormality. There is no acute osseous abnormality. IMPRESSION: Worsening pneumonia in the bilateral lower lobes. New small bilateral pleural effusions are noted. Reviewed, Interpreted and Dictated by Anais Raygoza MD Transcribed by Mari Meek Authenticated and [facility]
--- NOTE | 2024-12-29 11:25 | P.PN_ITS ---
Subjective *Date: 12/29/24 *Time: 11:25 Medical Exam Vital signs and Labs for Last 24 Hours: Vital Signs Temp Pulse Pulse Resp BP Pulse Ox O2 Del Method 12/29/24 10:00 82 18 150/74 H 99 Vapotherm 12/29/24 09:00 Vapotherm 12/29/24 08:10 Vapotherm 12/29/24 08:00 97.5 F L 12/29/24 08:00 90 18 162/80 H 96 Vapotherm 12/29/24 08:00 96 Vapotherm 12/29/24 06:44 Vapotherm 12/29/24 06:12 97 Vapotherm 12/29/24 06:00 84 18 140/75 94 L Vapotherm 12/29/24 04:55 Vapotherm 12/29/24 04:00 97.6 F 12/29/24 04:00 98 H 20 129/77 91 L Vapotherm 12/29/24 04:00 70 12/29/24 03:00 Vapotherm 12/29/24 02:00 Vapotherm 12/29/24 02:00 93 H 22 131/68 95 Vapotherm 12/29/24 01:00 Vapotherm 12/29/24 00:00 80 12/29/24 00:00 97.3 F L 12/29/24 00:00 77 20 135/64 98 Vapotherm 12/28/24 22:47 Vapotherm 12/28/24 22:00 91 H 21 144/75 H 97 Vapotherm 12/28/24 21:00 Vapotherm 12/28/24 20:00 90 12/28/24 20:00 97.3 F L 12/28/24 20:00 97.3 F L 94 H 22 160/67 H 95 Vapotherm 12/28/24 19:47 12/28/24 19:40 98 Vapotherm 12/28/24 18:40 Vapotherm 12/28/24 18:00 94 H 18 137/71 97 Vapotherm 12/28/24 17:00 Vapotherm 12/28/24 16:32 97.5 F L 12/28/24 16:00 100 H 12/28/24 16:00 98 Vapotherm 12/28/24 16:00 94 H 20 149/71 H 96 Vapotherm 12/28/24 15:00 Vapotherm 12/28/24 14:00 95 Vapotherm 12/28/24 14:00 91 H 20 120/71 93 L Vapotherm 12/28/24 13:00 Vapotherm 12/28/24 12:00 93 H 20 120/63 98 Vapotherm 12/28/24 12:00 98.4 F O2 Flow Rate FiO2 12/29/24 10:00 20 55 12/29/24 09:00 20 12/29/24 08:10 20 55 12/29/24 08:00 12/29/24 08:00 20 55 12/29/24 08:00 20 55 12/29/24 06:44 12/29/24 06:12 55 12/29/24 06:00 12/29/24 04:55 12/29/24 04:00 12/29/24 04:00 12/29/24 04:00 12/29/24 03:00 12/29/24 02:00 12/29/24 02:00 12/29/24 01:00 12/29/24 00:00 12/29/24 00:00 12/29/24 00:00 12/28/24 22:47 12/28/24 22:00 12/28/24 21:00 12/28/24 20:00 12/28/24 20:00 12/28/24 20:00 12/28/24 19:47 20 55 12/28/24 19:40 12/28/24 18:40 25 12/28/24 18:00 25 55 12/28/24 17:00 25 12/28/24 16:32 12/28/24 16:00 12/28/24 16:00 25 55 12/28/24 16:00 25 55 12/28/24 15:00 12/28/24 14:00 25 55 12/28/24 14:00 25 55 12/28/24 13:00 25 12/28/24 12:00 25 55 12/28/24 12:00 Intake and Output 12/28/24 12/29/24 12/29/24 23:59 07:59 15:59 Intake Total 800 / 2070 360 / 780 420 / 780 Output Total 750 / 2450 600 / 600 0 / 600 Balance 50 / -380 -240 / 180 420 / 180 Intake: Intake, Oral Amount 450 / 1470 360 / 780 420 / 780 Intake, Total IV Amount 350 / 600 Magnesium Sulfate in Water 2 gm 100 / 100 In 50 ml @ 50 mls/hr IV Q1H [facility] Rx#:[id number] Vancomycin HCl 750 mg In 0.9 % 250 / 500 Sodium Chloride 250 ml @ 125 mls/hr IV Q12H [facility] Rx#:[id number] Output: Output, Urine Amount 750 / 750 600 / 600 0 / 600 Other: Number of Voids 0 Number of Unmeasured Voids 0 0 Number of Bowel Movements 1 1 Weight 49.578 kg Patient Weight 12/29/24 23:59 Weight 49.578 kg Laboratory Results - last 24 hr 12/25/24 16:30: Ur L.pneumophila Ag Negative 12/26/24 10:52: ACTH <1.5 L 12/28/24 11:29: POC Glucose 108 12/28/24 15:00: Urine Color Yellow, Urine Appearance Clear, Urine pH 6.5, Ur Specific [place] 1.015, Urine Protein Negative, Urine Glucose (UA) Negative, Urine Ketones Negative, Urine Blood Negative, Urine Nitrate Negative, Urine Bilirubin Negative, Urine Urobilinogen 0.2, Ur Leukocyte Esterase Negative, Urine RBC None, Urine WBC Occasional, Ur Squamous Epith Cells 3-5, Urine Bacteria None 12/29/24 07:51: WBC 7.6 D, RBC 2.96 L, Hgb 7.8 L D, Hct 24.1 L, MCV 81.4, MCH 26.4 L, MCHC 32.4, RDW 18.3 H, Plt Count 108 L, MPV 9.9, Neut % (Auto) 88.6 H, Lymph % (Auto) 3.8 L, [place] % (Auto) 5.3, Eos % (Auto) 0.4, Baso % (Auto) 0.3, Neut # (Auto) 6.7, Lymph # (Auto) 0.3 L, [place] # (Auto) 0.4, Eos # (Auto) 0.0, Baso # (Auto) 0.0, Sodium 121 L, Potassium 2.9 L* D, Chloride 77 L, Carbon Dioxide 39 H, Anion Gap 7.9, BUN 9 D, Creatinine 0.50 L D, Estimated Creat Clear 44, Estimated GFR 124, Est GFR ( Amer) 150 D, Glucose 90, Calcium 7.8 L, Magnesium 1.8 D, Total Bilirubin 0.2, AST 33 D, ALT 20, Alkaline Phosphatase 99, Total Protein 6.2 L, Albumin 2.9 L D, Globulin 3.3 H, Albumin/Globulin Ratio 0.9 L I & O for Labs for Last 24 Hours: Intake & Output 12/26/24 12/27/24 12/28/24 12/29/24 23:59 23:59 23:59 23:59 Intake Total 1289.750 / 7398.988 6836 / 1190 1890 / 2070 780 / 780 Output Total 2472 / 2472 2760 / 2760 2450 / 2450 600 / 600 Balance -1182.250 / -1182.250 -1570 / -1570 -560 / -380 180 / 180 Weight 49 kg 52 kg 51.785 kg 49.578 kg The patient's infection will respond to the chosen ABx?: Yes Is the patient receiving the right drug, dose, and route?: Yes Could a more targeted ABx be ordered?: No (AFEBRILE, WBC WNL, MRSA IN SPUTUM)
[2024-12-29] MEDS: LISINOPRIL 10MG TABLET 10 MG PO (12:06)
[2024-12-29 12:32] LABS: MRSA DNA PCR NEGATIVE
[2024-12-29] MEDS: IPRATROPIUM/ALBUTEROL 3 ML NEB IH ×2 (12:56→18:17)
[2024-12-29] MEDS: SODIUM CHLORIDE 3% 15ML NEB 3 ML IH (12:56)
--- NOTE | 2024-12-29 12:58 | PC.NURSE ---
specimen cup taken into room. Pt educated on the need for a sputum sample.
[2024-12-29 14:11] LABS: Lactate Venous 0.9 mmol/L (0.4-2.0); VBG HCO3 36.3 mmol/L (23-30); VBG PH 7.43 mmol/L (7.31-7.41); VBG PO2 31.5 mmol/L (28-40)
[2024-12-29 14:17] LABS: VBG PCO2 56.1 mmol/L (35-51)
--- NOTE | 2024-12-29 14:38 | PC.NURSE ---
pt appears more confused today. This AM she did not know where she was and why she was here. She keeps asking if she can have a cigarette. She has been educated multiple times that she cannot smoke while in the hospital. She has been trying to get out of bed by herself this afternoon. Bed alarm put in place for pt safety. Dr. melo informed of pt's increased confusion. VBG ordered and done. MD Eric made aware of pt's increased confusion as well, states that her low sodium could be the cause.
--- NOTE | 2024-12-29 17:31 | PC.NURSE ---
PT HAS BECOME MORE AGITATED THE SHIFT HAS WENT ON. PT IS NOT VERY UPSET THAT WE WILL NOT LET HER GO SMOKE. SHE THINKS SHE IS IN A TRAILER IN [place]. FAMILY IS AT BEDSIDE AND PT IS NOT RESPONDING TO HER ATTEMPTS TO CALM HER DOWN. NOTIFIED OF PT'S BEHAVIOR. PT IS CURRENTLY HAS AN SRNA AT BEDSIDE FOR HER SAFETY. PT REPEATEDLY STATES THAT SHE IS GOING TO THE [facility]ITCH[facility] AND THAT THIS ISN'T A HOSPITAL. REDIRECTION HAS ONLY FURTHER AGITATED THE PT. PT'S FAMILY MEMBER AT BEDSIDE HAS ATTEMPTED TO REACH HER SON
[2024-12-29] MEDS: HALOPERIDOL LACTATE 5 MG/ML VIAL 2 MG IV (17:40)
[2024-12-29] MEDS: BUDESONIDE 0.5MG/2ML NEB 0.5 MG IH (18:17)
--- NOTE | 2024-12-29 20:36 | P.PN_ITS ---
Subjective *Date: 12/29/24 *Time: 20:36 Interval history: Patient has increased wheezing, rhonchi today., Pulmonology started DuoNebs, Pulmicort. Exhibiting increased agitation, confusion today. Probably from sodium 121 from Bumex, started salt tabs. Cautious with right heart failure. Holding Bumex. Started Haldol as needed. Per patient's brother, patient has had cognitive decline since Thanksgiving. He believes that patient is not adequately taking care of herself at home, does not always remember to take her medications, does have boyfriend but he is not around every day. Exam Data for Last 24 hours Vital signs and Labs for Last 24 Hours: Temp Pulse Resp BP Pulse Ox O2 Del Method O2 Flow Rate 98.1 F 88 20 135/78 91 L Nasal Cannula 4 12/29/24 16:00 12/29/24 18:18 12/29/24 16:00 12/29/24 16:00 12/29/24 18:18 12/29/24 19:54 12/29/24 18:57 FiO2 55 12/29/24 10:00 Laboratory Results - last 24 hr 12/26/24 11:28: MRSA (PCR) Negative 12/29/24 07:51: WBC 7.6 D, RBC 2.96 L, Hgb 7.8 L D, Hct 24.1 L, MCV 81.4, MCH 26.4 L, MCHC 32.4, RDW 18.3 H, Plt Count 108 L, MPV 9.9, Neut % (Auto) 88.6 H, Lymph % (Auto) 3.8 L, Harrison % (Auto) 5.3, Eos % (Auto) 0.4, Baso % (Auto) 0.3, Neut # (Auto) 6.7, Lymph # (Auto) 0.3 L, Harrison # (Auto) 0.4, Eos # (Auto) 0.0, Baso # (Auto) 0.0, Sodium 121 L, Potassium 2.9 L* D, Chloride 77 L, Carbon Dioxide 39 H, Anion Gap 7.9, BUN 9 D, Creatinine 0.50 L D, Estimated Creat Clear 44, Estimated GFR 124, Est GFR ( Amer) 150 D, Glucose 90, Calcium 7.8 L, Magnesium 1.8 D, Total Bilirubin 0.2, AST 33 D, ALT 20, Alkaline Phosphatase 99, Total Protein 6.2 L, Albumin 2.9 L D, Globulin 3.3 H, Albumin/Globulin Ratio 0.9 L 12/29/24 13:41: VBG pH 7.43 H, VBG pCO2 56.1 H, VBG pO2 31.5, VBG HCO3 36.3 H, VBG Total CO2 38.0 H, VBG O2 Saturation 60.0, VBG Base Excess 12.0 H, VBG Lactic Acid 0.9 I & O for Last 24 hours: Intake & Output 12/26/24 12/27/24 12/28/24 12/29/24 23:59 23:59 23:59 23:59 Intake Total 1289.750 / 1350.531 4982 / 1190 1890 / 2070 1140 / 1140 Output Total 2472 / 2472 2760 / 2760 2450 / 2450 2049 / 2049 Balance -1182.250 / -1182.250 -1570 / -1570 -560 / -380 -910 / -910 Weight 49 kg 52 kg 51.785 kg 49.578 kg Microbiology Reports for the Last 24 Hours: Microbiology 12/29/24 16:18 Sputum - Expectorated Sputum Gram Stain - Final 12/25/24 14:37 Blood Blood Culture - Preliminary NO GROWTH AFTER 4 DAYS 12/25/24 14:37 Blood Blood Culture - Preliminary NO GROWTH AFTER 4 DAYS Constitutional Constitutional: no acute distress and cachectic *Routine HEENT Exam Head: Present normocephalic Eye: Present EOMI and PERRL ENT: Present mucous membranes moist *Routine Neck Exam Neck: Present supple; Absent lymphadenopathy *Routine Respiratory Exam Respiratory: Present rhonchi and wheezes; Absent CTA bilaterally *Routine Cardiovascular Exam Cardiovascular: Present RRR *Routine Abdominal Exam Abdominal: Present soft and normoactive bowel sounds; Absent tenderness *Routine Extremities Exam Extremities: Absent cyanosis, clubbing or edema *Routine Skin Exam Skin: Present warm; Absent rash *Routine Neurological Exam Neurological: Present alert and oriented X3 Assessment and Plan *Assessment and plan (1) Acute urinary retention: Status: Acute Category: Medical Code(s): R33.8 - Other retention of urine (2) Right lower lobe pneumonia: Status: Acute Category: Medical Code(s): J18.9 - Pneumonia, unspecified organism (3) MRSA pneumonia: Status: Acute Category: Medical Code(s): J15.212 - Pneumonia due to Methicillin resistant Staphylococcus aureus (4) Acute respiratory failure with hypoxemia: Status: Acute Category: Medical Code(s): J96.01 - Acute respiratory failure with hypoxia (5) Severe protein-calorie malnutrition: Status: Acute Category: Medical Code(s): E43 - Unspecified severe protein-calorie malnutrition Plan Marisa Kruse is a 64-year-old female with a medical history of COPD, hypertension, extensive smoking history, chronic hyponatremia, CAD presents with progressive functional decline, shortness of breath, productive cough. She was recently discharged about a week ago in stable condition after treatment for right lobar pneumonia. Patient states she did well for a few days at home and finished her course of Augmentin, however over the past few days she became increasingly short of breath, productive cough and profound weakness. She denies chest pain, abdominal pain. Patient at this time is not the best historian given her lethargy workup in the ED significant for WBC 8.1, sodium 125, BNP 2070. CTA revealed extensive right lower lobe pneumonia, hilar adenopathy. CT abdomen/pelvis suggestive of fluid-filled bowels, and severely distended urinary bladder. Ramos was placed with significant urine output. Case discussed with ED provider and decision was made to admit patient for acute hypoxic respiratory failure secondary to pneumonia, and functional decline. #Acute hypoxic respiratory failure #MRSA multifocal pneumonia #Hilar adenopathy ? Initial CTA revealed right lobar pneumonia. No leukocytosis or signs of sepsis at this time. ? CTA also reveals hilar adenopathy and spoke with pulmonology, likely reactive at this time. However, worth investigating given chronic hyponatremia in 120s, possibly SIADH pending labs. ? Sputum culture growing MRSA. Discontinued cefepime. Blood cultures negative. ? Repeat CT chest 12/29/2024 revealed worsening opacities, but patient overall clinically improving. Repeat sputum cultures obtained today. ? Weaned to 4 L nasal cannula from Vapotherm today. ? Discussed with pulmonology, switched to linezolid from vancomycin. Recommend total of 10 days. ? Continue Zyvox 600 mg twice daily, end date 01/03/2025. ? Follow-up repeat sputum cultures given worsening opacities on CT chest. ? Pulmonology consulted, assisting with care as above. ? Follow-up CBC, CRP, ESR tomorrow. #Right heart failure #Elevated BNP ? Initial BNP 1999, with 3+ pitting edema. Likely further exacerbated by protein/nutritional deficiencies. ? ECHO reveals moderate RV dilation, mildly reduced RV function. RVSP 50 to 55 mmHg. Likely from advanced COPD, probable pulmonary hypertension. ? Hypervolemia resolved with Bumex diuresis, net -4100 mL. ? Holding Bumex today given worsening hyponatremia. ? Creatinine 0.5, stable. ? Monitor renal function, electrolytes. Follow-up CMP in the morning # Acute on chronic hyponatremia ? Sodium 125 on admission. Seems to have had a decline since October 2024. ? There is hilar adenopathy on CTA chest, which may represent possible malignancy especially in the setting of chronic hyponatremia/possible SIADH. ? Follow-up serum/urine osmolality. Follow-up morning cortisol, ACTH again. I nitially high, then normal. ? Patient has severe nutritional deficiencies, so will not fluid restrict at this time. ? Sodium 121 today, patient more agitated today. Started sodium chloride 1000 mg 3 times daily, wean with improvement. Cautious with right heart failure. No encephalopathy, seizures. #COPD exacerbation ? Current smoker. COPD seems slightly exacerbated today. ? Pulmonology started Jacques Anaya. Hold Treasiyagy. #Cognitive decline ? Per patient's brother, patient has had cognitive decline since . He believes that patient is not adequately taking care of herself at home, does not always remember to take her medications, does have boyfriend but he is not around every day. ? Patient is waxing and waning in confusion during hospitalization. Could be hospital-acquired delirium with underlying dementia. ? There is some concern for dementia given progressive cognitive changes. TFTs, B12, folate normal. ? CT head 12/18/2024 shows mild atrophy. ? Started IV Haldol 2 mg as needed for agitation. ? Will discuss with patient tomorrow whether she would be interested in long- term assisted living. ? Plan to refer to neurology for further evaluation. #Physical deconditioning #Functional decline #Severe protein calorie malnutrition ? PT/OT consulted, recommended home with home health. ? Will provide high-protein shakes with meals. ? TFTs, B12, folate normal. Follow-up vitamin D. #Urinary retention ? Severely distended bladder on initial CT, s/p Ramos insertion with significant output. ? Voiding challenge failed, Ramos reinserted with 1100 mL urine output.. May need Ramos on discharge, will refer to urology. #Hypertension ? Continue home lisinopril 10 mg daily. #GERD ? Resume home PPI. Full code DVT prophylaxis: Lovenox 40 mg
[2024-12-29] MEDS: LINEZOLID 600 MG/300 ML IV.SOLN 300 MG IV (20:39)
--- NOTE | 2024-12-29 20:59 | PC.NURSE ---
nurse made aware of hypothermic temperature. Pt covered with blanket and to be rechecked in 15 minutes
--- NOTE | 2024-12-29 21:30 | PC.NURSE ---
warm blankets being given to pt, will recheck temp in 15 minutes
[2024-12-29 21:39] LABS: ABG Base Excess 12.6 mmol/L (-2.4-2.3); ABG HCO3 36.7 mmhg (22.0-26.0); ABG Oxygen Saturation 97 % (90-100); ABG PH 7.44 mmol/L (7.35-7.45); ABG PO2 90.9 mmhg (80-100); ABG TCO2 38.4 mmhg (23-27); Allen's Test Acceptable; Oxygen 40L/100% %; Source Right Brachial
[2024-12-29 21:40] LABS: ABG PCO2 54.8 mmhg (35.0-45.0)
--- NOTE | 2024-12-29 22:03 | PC.NURSE ---
temp 97.6
[2024-12-30] VITALS (19 sets, daily range): BP systolic 107–134; BP diastolic 52–75; PULSE 70–100; RESP 13–20; TEMP 36.4–37; O2SAT 90–100; BMI 19.0
[2024-12-30] MEDS: IPRATROPIUM/ALBUTEROL 3 ML NEB IH ×4 (00:11→18:25)
[2024-12-30] MEDS: HALOPERIDOL LACTATE 5 MG/ML VIAL 2 MG IV (00:52)
--- NOTE | 2024-12-30 04:44 | PC.NURSE ---
Alert to self only. Patient believes she is home. Pt rested until 0030, woke up, combative, hitting and talking profanity to staff, repeatedly attempted to get out of bed, PRN med given for agitation, patient went back to sleep, currently awake and has attempted to get out of bed, bed alarm on and functioning. Santo NUNES aware of decreased urine output, continued to monitor. Patient placed back on vapotherm early in shift due to not being able to maintain on nasal cannula or venti mask, settings have be adjusted depending on patients status, respiratory called several times over O2 sat. Lung sounds wheezing with crackles in bases. Call light in reach. Son did come to visit for some time.
--- NOTE | 2024-12-30 05:02 | PC.NURSE ---
Son, Macario, left number to be called if needed,
[2024-12-30] MEDS: BUDESONIDE 0.5MG/2ML NEB 0.5 MG IH ×2 (06:11→18:25)
[2024-12-30 07:06] LABS: C-Reactive Protein 143.7 mg/L (0-4)
[2024-12-30 07:46] LABS: Erythrocyte Sedimentation Rate 136 mm/hr (0-30)
[2024-12-30 08:13] LABS: Basophils % 0.3 % (0.1-2.0); Eosinophils % 0.3 % (0.1-12.0); Hematocrit 24.5 % (37.0-47.0); Hemoglobin 7.7 g/dL (12.2-16.2); Lymphocytes # 0.3 K/mm3 (0.7-4.5); Lymphocytes % 4.5 % (10-50); Mean Corpuscular HGB Conc 31.4 g/dL (31.8-35.4); Mean Corpuscular Hemoglobin 25.7 pg (27.0-31.2); Mean Corpuscular Volume 81.7 fl (81-99); Mean Platelet Volume 10.3 fl (7.4-10.4); Monocytes # 0.3 K/mm3 (0.1-1.0); Monocytes % 4.7 % (1.7-9.3); Neutrophils # 5.7 K/mm3 (1.8-7.8); Neutrophils % 88.9 % (37.0-80.0); Platelet Count 124 K/mm3 (142-424); White Blood Count 6.4 K/mm3 (4.8-10.8)
[2024-12-30 08:18] LABS: Albumin Level 2.7 g/dl (3.5-5.0); Chloride 80 mmol/L (98-107); Potassium 3.8 mmoL/L (3.5-5.1); Sodium 122 mmol/L (136-145)
[2024-12-30 08:21] LABS: Alanine Aminotransferase 20 U/L (12-78); Albumin/Globulin Ratio 0.8 (1.1-1.8); Alkaline Phosphatase 99 U/L (38-126); Aspartate Amino Transferase 32 U/L (14-36); Blood Urea Nitrogen 8 mg/dl (7-17); Creatinine Clearance Estimated 46 mL/min (50-200); Estimated Glomerular Filt Rate 124 ml/min (>60); GFR (African American) 150 ML/MIN (>60); Globulin 3.3 g/dL (1.3-3.2); Glucose 78 mg/dl (74-100); Magnesium 1.9 mg/dl (1.6-2.3)
[2024-12-30 08:27] LABS: Bilirubin,Total 0.1 mg/dl (0.2-1.3)
[2024-12-30] MEDS: LISINOPRIL 10MG TABLET 10 MG PO (08:43)
[2024-12-30] MEDS: LINEZOLID 600 MG/300 ML IV.SOLN 300 MG IV ×2 (08:43→20:46)
[2024-12-30] MEDS: ENOXAPARIN 40MG/0.4ML SYRINGE 40 MG SUBCUT (08:43)
[2024-12-30] MEDS: SODIUM CHLORIDE 1,000MG TABLET 1000 MG PO ×2 (08:44→20:46)
--- NOTE | 2024-12-30 09:40 | SW/DCPLANNER ---
Addendum entered by Linda Armenta 01/09/25 08:41: Due to patient having confusion I spoke w/ patient's SO Rasheed this AM regarding plans once medically stable for discharge. 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 Rasheed requested that I call and speak w/ patient's brother (Chiki [phone]) regarding situation. I called and spoke w/ Chiki and he stated that he would like for patient to be able to return home and family would be available to assist w/ patient and Rasheed at home. Chiki is going to speak w/ Rasheed and other family members today then follow up w/ me. Per PT patient is doing well and would be able to return home w/ family and home health services. I will continue to follow up. Addendum entered by Linda Armenta 12/30/24 10:10: I also spoke w/ patient's son Macario and updated him of discharge plans. Original Note: I spoke w/ this patient and her S.O. regarding plans once medically stable for discharge. PT/OT has been working w/ patient and recommended returning home w/ home health services. Patient currently lives at home w/ S.O.. Patient is agreeable to home health services once medically stable for discharge. Patient also has a rollator at home. I will continue to follow up w/ this patient and set up home health services once medically stable for discharge. Discharge date is unknown at this time.
[2024-12-30 10:09] LABS: Anion Gap 15.8 mEq/L (5-15); Carbon Dioxide 30 mmol/L (22.0-30.0)
[2024-12-30] MEDS: MAGNESIUM SULFATE IN WATER 2 GM/50 ML PIGGYBACK IV (10:21)
--- NOTE | 2024-12-30 10:57 | P.PN_ITS ---
Subjective *Date: 12/30/24 *Time: 13:00 Interval history: No acute respiratory vents overnight. Patient denies any new respiratory complaints. Pulmonology Exam Inpatient Vital signs and Labs for Last 24 Hours: Temp Pulse Resp BP Pulse Ox O2 Del Method O2 Flow Rate 98.1 F 84 19 117/61 95 Vapotherm 40 12/30/24 08:00 12/30/24 10:00 12/30/24 10:00 12/30/24 10:00 12/30/24 10:00 12/30/24 10:00 12/30/24 10:00 FiO2 70 12/30/24 10:00 Laboratory Results - last 24 hr 12/26/24 11:28: MRSA (PCR) Negative 12/29/24 13:41: VBG pH 7.43 H, VBG pCO2 56.1 H, VBG pO2 31.5, VBG HCO3 36.3 H, VBG Total CO2 38.0 H, VBG O2 Saturation 60.0, VBG Base Excess 12.0 H, VBG Lactic Acid 0.9 12/29/24 21:37: Specimen Source Right brachial, O2 % 40l/100%, ABG pH 7.44, ABG pCO2 54.8 H, ABG pO2 90.9, ABG HCO3 36.7 H, ABG Total CO2 38.4 H, ABG O2 Saturation 97, ABG Base Excess 12.6 H, Emigdio Test Acceptable 12/30/24 06:00: ESR 136 H, C-Reactive Protein 143.7 H, 25-OH Vitamin D Total 14.0 L 12/30/24 07:56: WBC 6.4, RBC 3.00 L, Hgb 7.7 L, Hct 24.5 L, MCV 81.7, MCH 25.7 L , MCHC 31.4 L, RDW 18.0 H, Plt Count 124 L, MPV 10.3, Neut % (Auto) 88.9 H, Lymph % (Auto) 4.5 L, Smyth % (Auto) 4.7, Eos % (Auto) 0.3, Baso % (Auto) 0.3, Neut # (Auto) 5.7, Lymph # (Auto) 0.3 L, Smyth # (Auto) 0.3, Eos # (Auto) 0.0, Baso # (Auto) 0.0, Sodium 122 L, Potassium 3.8 D, Chloride 80 L, Carbon Dioxide 30, Anion Gap 15.8 H, BUN 8, Creatinine 0.50 L, Estimated Creat Clear 46, Estimated GFR 124, Est GFR ( Amer) 150, Glucose 78, Calcium 8.0 L, Magnesium 1.9, Total Bilirubin 0.1 L, AST 32, ALT 20, Alkaline Phosphatase 99, Total Protein 6.0 L, Albumin 2.7 L, Globulin 3.3 H, Albumin/Globulin Ratio 0.8 L , Vancomycin Trough 11.0 H Temp Pulse Resp BP Pulse Ox O2 Del Method O2 Flow Rate 98.7 F 120 H 17 123/53 L 97 BiPAP 3 12/26/24 08:00 12/26/24 08:00 12/26/24 08:00 12/26/24 08:25 12/26/24 08:00 12/26/24 09:25 12/26/24 02:00 FiO2 35 12/26/24 07:52 Laboratory Results - last 24 hr 12/25/24 14:17: SARS-CoV-2 (PCR) Not detected, Influenza A Untype (PCR) Not detected, Influenza Type B (PCR) Not detected 12/25/24 14:35: VBG pH 7.35, VBG pCO2 54.9 H, VBG pO2 42.0 H, VBG HCO3 29.4, VBG Total CO2 31.0 H, VBG O2 Saturation 75.5 H, VBG Base Excess 3.7 H, VBG Lactic Acid 0.9 12/25/24 14:37: WBC 8.1, RBC 3.29 L, Hgb 8.6 L, Hct 26.9 L, MCV 81.8, MCH 26.1 L , MCHC 32.0, RDW 18.0 H, Plt Count 100 L, MPV 11.0 H, Neut % (Auto) 89.4 H, Lymph % (Auto) 5.5 L, Smyth % (Auto) 4.1, Eos % (Auto) 0.2, Baso % (Auto) 0.1, Neut # (Auto) 7.3, Lymph # (Auto) 0.5 L, Smyth # (Auto) 0.3, Eos # (Auto) 0.0, Baso # (Auto) 0.0, PT 10.8, INR 0.98, Sodium 125 L, Potassium 4.2, Chloride 89 L , Carbon Dioxide 34 H, Anion Gap 6.2, BUN 12, Creatinine 0.40 L, Estimated Creat Clear 40, Estimated GFR 160, Est GFR ( Amer) 194, Glucose 71 L, Calcium 8.6, Phosphorus 3.2, Magnesium 1.6, Total Bilirubin 0.2, AST 26, ALT 18, Alkaline Phosphatase 85, Troponin I < 0.01, NT-Pro-B Natriuret Pep 2070 H, Total Protein 5.8 L, Albumin 2.8 L, Globulin 3.0, Albumin/Globulin Ratio 0.9 L, TSH 1.44, Thyroxine (T4) 13.0 H 12/25/24 16:30: Urine Color Yellow, Urine Appearance Clear, Urine pH 6.5, Ur Specific [place] 1.010, Urine Protein Negative, Urine Glucose (UA) Negative, Urine Ketones Negative, Urine Blood Negative, Urine Nitrate Negative, Urine Bret irubin Negative, Urine Urobilinogen 0.2, Ur Leukocyte Esterase Negative, Urine RBC None, Urine WBC None, Ur Squamous Epith Cells Occasional, Urine Bacteria Trace 12/25/24 17:25: Troponin I < 0.01 12/25/24 18:53: POC Glucose 71 12/25/24 19:14: Sodium 124 L, Potassium 3.7, Chloride 90 L, Carbon Dioxide 31 H, Anion Gap 6.7, BUN 11, Creatinine 0.40 L, Estimated Creat Clear 43, Estimated GFR 160, Est GFR ( Amer) 194, Glucose 196 H D, Calcium 8.1 L, Troponin I < 0.01, NT-Pro-B Natriuret Pep 2320 H 12/25/24 19:55: Troponin I < 0.01 12/25/24 21:54: Folate 18.40 12/26/24 00:03: Chlamy pneumoniae PCR Not detected, Adenovirus (PCR) Not detected, B. pertussis DNA (PCR) Not detected, Coronavirus OC43 (PCR) Not detected, Coronavirus HKU1 (PCR) Not detected, Coronavirus 229E (PCR) Not detected, SARS-CoV-2 (PCR) Not detected, Coronavirus NL63 (PCR) Not detected, Human Metapneumovir PCR Not detected, Influenza A (H1) PCR Not detected, Influ A (H1N1/09) PCR Not detected, Influenza A (H3) PCR Not detected, Influenza Type A (PCR) Not detected, Influenza Type B (PCR) Not detected, M. pneumoniae (PCR) Not detected, Parainfluenza 1 (PCR) Not detected, Parainfluenza 2 (PCR) Not detected, Parainfluenza 3 (PCR) Not detected, Parainfluenza 4 (PCR) Not detected, RSV (PCR) Not detected, Entero/Rhino (PCR) Not detected 12/26/24 02:39: Specimen Source Right radial, O2 % 50, ABG pH 7.34 L, ABG pCO2 54.7 H, ABG pO2 70.2 L, ABG HCO3 28.7 H, ABG Total CO2 30.4 H, ABG O2 Saturation 92, ABG Base Excess 2.9 H, Emigdio Test Acceptable 12/26/24 06:13: WBC 9.6, RBC 3.04 L, Hgb 8.1 L, Hct 25.0 L, MCV 82.2, MCH 26.6 L , MCHC 32.4, RDW 18.2 H, Plt Count 107 L, MPV 10.7 H, Neut % (Auto) 96.1 H, Lymph % (Auto) 1.6 L, Smyth % (Auto) 1.2 L, Eos % (Auto) 0.0 L, Baso % (Auto) 0.2, Neut # (Auto) 9.2 H, Lymph # (Auto) 0.2 L, Smyth # (Auto) 0.1, Eos # (Auto) 0.0, Baso # (Auto) 0.0, Total Counted 100, Neutrophils % (Manual) 94 H, Band Neutrophils % 1.0, Lymphocytes % (Manual) 3 L, Monocytes % (Manual) 2, Platelet Estimate Slight decrease, RBC Morphology Normal, Hypochromasia 1+, Microcytosis 1+, Sodium 127 L, Potassium 4.1, Chloride 93 L, Carbon Dioxide 31 H, Anion Gap 7.1, BUN 10, Creatinine 0.50 L D, Estimated Creat Clear 43, Estimated GFR 124, Est GFR ( Amer) 150 D, Glucose 64 L D, Hemoglobin A1c 5.3, Lactate < 0.5 L, Calcium 8.4, Magnesium 1.6, TIBC 273, Total Bilirubin < 0.1 L, AST 21, ALT 16, Alkaline Phosphatase 107, NT-Pro-B Natriuret Pep 2720 H, Total Protein 5.6 L , Albumin 2.6 L, Globulin 3.0, Albumin/Globulin Ratio 0.9 L, Triglycerides 56, Cholesterol 111 L, LDL Cholesterol Direct 36.34 L, VLDL Cholesterol 11, HDL Cholesterol 50, Cholesterol/HDL Ratio 2.2, Vitamin B12 > 1000 H, Procalcitonin 0.062, TSH 0.86 D 12/26/24 09:35: VBG pH 7.40, VBG pCO2 45.4, VBG pO2 71.0 H, VBG HCO3 27.7, VBG Total CO2 29.1 H, VBG O2 Saturation 93.7 H, VBG Base Excess 2.9 H, VBG Lactic Acid 0.9 I & O for Labs for Last 24 Hours: Intake & Output 12/27/24 12/28/24 12/29/24 12/30/24 23:59 23:59 23:59 23:59 Intake Total 1190 / 1190 1890 / 2070 1140 / 1440 300 / 300 Output Total 2760 / 2760 2450 / 2450 2049 / 2049 250 / 250 Balance -1570 / -1570 -560 / -380 -910 / -610 50 / 50 Weight 114 lb 10.246 oz 114 lb 2.662 oz 109 lb 4.8 oz 114 lb 3.2 oz Intake & Output 12/23/24 12/24/24 12/25/24 12/26/24 23:59 23:59 23:59 23:59 Intake Total 488.750 / 488.750 Output Total 715 / 715 Balance 304 -226.250 / -226.250 Weight 107 lb 5 oz 108 lb 4.8 oz Microbiology Reports for the Last 24 Hours: Microbiology 12/29/24 16:18 Sputum - Expectorated Sputum Gram Stain - Final 12/29/24 16:18 Sputum - Expectorated Sputum Sputum Culture - Preliminary 12/25/24 14:37 Blood Blood Culture - Preliminary NO GROWTH AFTER 4 DAYS 12/25/24 14:37 Blood Blood Culture - Preliminary NO GROWTH AFTER 4 DAYS Microbiology 12/25/24 16:10 Sputum - Expectorated Sputum Gram Stain - Final Constitutional: Present moderate distress and severe distress Head: Present normocephalic and atraumatic ENT: Present normal exam, normal oropharynx and mucous membranes moist Neck: Present normal inspection and full ROM Respiratory: Present respiratory distress, rhonchi and able to speak in complete sentences; Absent wheezes Cardiac: Present S1/S2, Tachycardia and radial pulses present GI: Present soft and distention; Absent tenderness or guarding Rectal (female): Present deferred (female): Present deferred Skin: Present intact; Absent cyanosis or jaundice Neuro: Present alert, awake and oriented x 3 Extremities: Present normal inspection; Absent clubbing or cyanosis Psychiatric: Present normal affect and cooperative Assessment and Plan *Assessment and plan (1) Right lower lobe pneumonia: Status: Acute Category: Medical Code(s): J18.9 - Pneumonia, unspecified organism (2) Acute respiratory failure with hypoxemia: Status: Acute Category: Medical Code(s): J96.01 - Acute respiratory failure with hypoxia (3) Unresolved pneumonia: Status: Acute Category: Medical Code(s): J18.9 - Pneumonia, unspecified organism (4) MRSA pneumonia: Status: Acute Category: Medical Code(s): J15.212 - Pneumonia due to Methicillin resistant Staphylococcus aureus Plan Ms. Kruse is a 64-year-old female with reported history of COPD hypertension CAD chronic hyponatremia recently discharged from the hospital for right lobar pneumonia on Augmentin presented with worsening respiratory distress found be hypotensive needing vasopressor support and pulmonary was called for further evaluation and management. Patient during her recent admission found to be having the right lower lobe dense consolidative changes, initiated on ceftriaxone and azithromycin on admission, discharged home on Augmentin. Current smoker greater than 30 PPD. At baseline not using oxygen supplementation during the daytime until most recent discharge. Prescribed nocturnal oxygen supplementation however has not been compliant. Chest x-ray from this morning continue to show right lower lobe airspace disease that appeared to be improved on recent admission. CTA upon admission evidence of pulmonary embolism. Continued symptoms of right lower lobe consolidative changes. No sputum cultures available from recent admission. Mild neutrophilic predominant leukocytosis. Comprehensive respiratory viral PCR panel negative On this admission was initiated on vancomycin and cefepime. On examination patient was on BiPAP therapy. Weaned to nasal cannula with saturations maintained at 90% and above. Bilateral rhonchorous breath sounds. Hemodynamically stable, off pressors. Repeat CT chest reviewed, worsening right lower lobe consolidative changes and a small right effusion. Sputum Cultures MRSA on vancomycin, changed to Linezolid Interval Update: Afebrile. Hemodynamically stable. Weaned to nasal cannula. This morning on 4 L saturating 94% and above. Plan: Incentive spirometry and flutter valve. CPT BID Continue oxygen supplementation to maintain O2 saturation of 90% and above. on 4L NC DuoNebs every 6 hours along with Pulmicort Q12 scheduled Continue Linezolid for MRSA pneumonia to complete a 14 day course. # The CT scan on still concerning for nodular opacities in the right lower lobe along with lymphadenopathy though likely from infectious etiology at this point of time. Will follow after antibiotic treatment completion with repeat imaging as an outpatient basis
--- NOTE | 2024-12-30 14:19 | DIET.NUTRFU ---
Spoke to patient today about her meal intake. She is trying but still only consuming 25-50% of meals. She does not like the homemade shake and previously stated she dislikes boost or ensure. Willing to try boost breeze to help meet protein needs. Also encouaraged high protein meals- cottage cheese/yogurt/pudding/chicken salad. To prioritize the protein on plate, she said she has been. She was also started on fluid restriction today secondary to low sodium of 122. LBM noted 12/29. Will continue to encourage high protein intake
--- NOTE | 2024-12-30 16:44 | PC.NURSE ---
Pt is more alert and oriented this afternoon. She is A&O x3. She is currently on 6L O2 NC with O2 sats in lower 90s. She has been up to the chair this shift and tolerated well. F/C DC. VSS. Call light within reach. Safety measures in place.
--- NOTE | 2024-12-30 18:54 | EXP.ACUTE.PN ---
Subjective *Date: 12/30/24 *Time: 23:40 Interval history: Feeling somewhat better today. Weaned from Vapotherm to nasal cannula. Continues to require oxygen higher than baseline at home. Afebrile. No nausea or vomiting. Sodium remains low. Continuing supplementation. Working with therapy. Independently mobile. Medical Exam Vital signs and Labs for Last 24 Hours: Vital Signs Temp Pulse Pulse Resp BP Pulse Ox O2 Del Method 12/30/24 18:28 86 12/30/24 18:28 86 12/30/24 18:28 91 L Nasal Cannula 12/30/24 18:00 83 17 132/75 95 Nasal Cannula 12/30/24 17:00 Nasal Cannula 12/30/24 16:00 100 H 12/30/24 16:00 86 20 134/74 96 Nasal Cannula 12/30/24 15:00 Nasal Cannula 12/30/24 14:00 91 H 17 128/56 L 90 L Nasal Cannula 12/30/24 14:00 Nasal Cannula 12/30/24 13:00 Nasal Cannula 12/30/24 12:00 90 12/30/24 12:00 98.6 F 12/30/24 12:00 87 17 131/62 93 L Nasal Cannula 12/30/24 11:25 85 12/30/24 11:25 84 12/30/24 11:25 92 L Nasal Cannula 12/30/24 11:00 Nasal Cannula 12/30/24 10:00 84 19 117/61 95 Vapotherm 12/30/24 09:45 98 Vapotherm 12/30/24 09:00 Vapotherm 12/30/24 08:00 80 17 127/69 99 Vapotherm 12/30/24 08:00 80 12/30/24 08:00 98.1 F 12/30/24 08:00 Vapotherm 12/30/24 06:47 Vapotherm 12/30/24 06:11 74 12/30/24 06:11 78 12/30/24 06:11 96 Vapotherm 12/30/24 06:00 73 13 115/70 100 Vapotherm 12/30/24 04:55 Vapotherm 12/30/24 04:08 98 Vapotherm 12/30/24 04:00 97.9 F 77 16 120/55 L 95 Vapotherm 12/30/24 04:00 70 12/30/24 03:39 98 Vapotherm 12/30/24 02:52 93 L Vapotherm 12/30/24 02:48 Vapotherm 12/30/24 02:00 Vapotherm 12/30/24 02:00 77 18 107/52 L 99 Vapotherm 12/30/24 01:00 Vapotherm 12/30/24 00:11 83 12/30/24 00:11 84 12/30/24 00:11 99 Vapotherm 12/30/24 00:00 75 12/30/24 00:00 80 20 115/59 L 91 L Vapotherm 12/29/24 23:59 97.9 F 12/29/24 23:00 Vapotherm 12/29/24 22:10 98 Vapotherm 12/29/24 22:03 97.6 F 75 14 118/63 98 Vapotherm 12/29/24 22:00 97.6 F 75 15 118/63 95 Vapotherm 12/29/24 21:46 96 Vapotherm 12/29/24 21:43 99 Vapotherm 12/29/24 21:29 96.7 F L 79 18 123/63 100 Vapotherm 12/29/24 21:10 Vapotherm 12/29/24 20:50 96.7 F L 79 17 114/51 L 94 L Nasal Cannula 12/29/24 20:00 75 12/29/24 20:00 Nasal Cannula 12/29/24 19:54 Nasal Cannula 12/29/24 18:57 Nasal Cannula O2 Flow Rate FiO2 12/30/24 18:28 12/30/24 18:28 12/30/24 18:28 6 12/30/24 18:00 5 12/30/24 17:00 6 12/30/24 16:00 12/30/24 16:00 6 12/30/24 15:00 6 12/30/24 14:00 6 12/30/24 14:00 4 12/30/24 13:00 4 12/30/24 12:00 12/30/24 12:00 12/30/24 12:00 6 12/30/24 11:25 12/30/24 11:25 12/30/24 11:25 6 12/30/24 11:00 6 12/30/24 10:00 40 70 12/30/24 09:45 25 50 02/18/25 09:00 40 12/30/24 08:00 40 70 12/30/24 08:00 12/30/24 08:00 12/30/24 08:00 40 70 12/30/24 06:47 12/30/24 06:11 12/30/24 06:11 12/30/24 06:11 70 12/30/24 06:00 12/30/24 04:55 12/30/24 04:08 40 70 12/30/24 04:00 12/30/24 04:00 12/30/24 03:39 30 50 12/30/24 02:52 35 75 12/30/24 02:48 12/30/24 02:00 12/30/24 02:00 12/30/24 01:00 12/30/24 00:11 12/30/24 00:11 12/30/24 00:11 40 80 12/30/24 00:00 12/30/24 00:00 12/29/24 23:59 12/29/24 23:00 12/29/24 22:10 35 55 12/29/24 22:03 12/29/24 22:00 12/29/24 21:46 25 40 12/29/24 21:43 40 60 12/29/24 21:29 12/29/24 21:10 40 100 12/29/24 20:50 4 12/29/24 20:00 12/29/24 20:00 4 12/29/24 19:54 12/29/24 18:57 4 Intake and Output 12/30/24 12/30/24 12/30/24 07:59 15:59 23:59 Intake Total 300 / 1370 360 / 1370 710 / 1370 Output Total 250 / 650 400 / 650 Balance 50 / 720 -40 / 720 710 / 720 Intake: Intake, Oral Amount 360 / 720 360 / 720 Intake, Total IV Amount 300 / 650 350 / 650 Linezolid 600 mg In 300 ml @ 300 / 600 300 / 600 300 mls/hr IV Q12H [facility] Rx#: [id number] Magnesium Sulfate in Water 2 gm 50 / 50 In 50 ml @ 50 mls/hr IV ONCE ONE Rx#:[id number] Output: Output, Urine Amount 250 / 650 400 / 650 Other: Number of Voids 0 0 Number of Unmeasured Voids 0 0 Weight 51.8 kg Patient Weight 12/30/24 23:59 Weight 51.8 kg Laboratory Results - last 24 hr 12/29/24 21:37: Specimen Source Right brachial, O2 % 40l/100%, ABG pH 7.44, ABG pCO2 54.8 H, ABG pO2 90.9, ABG HCO3 36.7 H, ABG Total CO2 38.4 H, ABG O2 Saturation 97, ABG Base Excess 12.6 H, Emigdio Test Acceptable 12/30/24 06:00: ESR 136 H, C-Reactive Protein 143.7 H, 25-OH Vitamin D Total 14.0 L 12/30/24 07:56: WBC 6.4, RBC 3.00 L, Hgb 7.7 L, Hct 24.5 L, MCV 81.7, MCH 25.7 L, MCHC 31.4 L, RDW 18.0 H, Plt Count 124 L, MPV 10.3, Neut % (Auto) 88.9 H, Lymph % (Auto) 4.5 L, Hays % (Auto) 4.7, Eos % (Auto) 0.3, Baso % (Auto) 0.3, Neut # (Auto) 5.7, Lymph # (Auto) 0.3 L, Hays # (Auto) 0.3, Eos # (Auto) 0.0, Baso # (Auto) 0.0, Sodium 122 L, Potassium 3.8 D, Chloride 80 L, Carbon Dioxide 30, Anion Gap 15.8 H, BUN 8, Creatinine 0.50 L, Estimated Creat Clear 46, Estimated GFR 124, Est GFR ( Amer) 150, Glucose 78, Calcium 8.0 L, Magnesium 1.9, Total Bilirubin 0.1 L, AST 32, ALT 20, Alkaline Phosphatase 99, Total Protein 6.0 L, Albumin 2.7 L, Globulin 3.3 H, Albumin/Globulin Ratio 0.8 L, Vancomycin Trough 11.0 H I & O for Labs for Last 24 Hours: Intake & Output 12/27/24 12/28/24 12/29/24 12/30/24 23:59 23:59 23:59 23:59 Intake Total 1190 / 1190 1890 / 2070 1140 / 1440 1370 / 1370 Output Total 2760 / 2760 2450 / 2450 2049 650 / 650 Balance -1570 / -1570 -560 / -380 -910 / -610 720 / 720 Weight 52 kg 51.785 kg 49.578 kg 51.8 kg Microbiology Reports for the Last 24 Hours: Microbiology 12/25/24 14:37 Blood Blood Culture - Final NO GROWTH AFTER 5 DAYS 12/25/24 14:37 Blood Blood Culture - Final NO GROWTH AFTER 5 DAYS 12/29/24 16:18 Sputum - Expectorated Sputum Gram Stain - Final 12/29/24 16:18 Sputum - Expectorated Sputum Sputum Culture - Preliminary Constitutional: Present no acute distress, cachectic, chronically ill appearing and cooperative Head: Present atraumatic and normocephalic ENT: Present normal exam Respiratory: Present prolonged expiratory phase, wheezes, crackles and normal respiratory effort; Absent rhonchi Cardiac: Present Reg Rate and Rhythm GI: Present soft and normal bowel sounds; Absent distention or tenderness Extremities: Present normal inspection and full ROM Skin: Present intact; Absent erythema Neuro: Present Grossly Intact, alert, awake, oriented x 3 and moves all extremities Assessment and Plan *Assessment and plan (1) Right lower lobe pneumonia: Status: Acute Category: Medical Code(s): J18.9 - Pneumonia, unspecified organism (2) Acute urinary retention: Status: Acute Category: Medical Code(s): R33.8 - Other retention of urine (3) MRSA pneumonia: Status: Acute Category: Medical Code(s): J15.212 - Pneumonia due to Methicillin resistant Staphylococcus aureus (4) Acute respiratory failure with hypoxemia: Status: Acute Category: Medical Code(s): J96.01 - Acute respiratory failure with hypoxia (5) Severe protein-calorie malnutrition: Status: Acute Category: Medical Code(s): E43 - Unspecified severe protein-calorie malnutrition Plan Marisa Kruse is a 64-year-old female with a medical history of COPD, hypertension, extensive smoking history, chronic hyponatremia, CAD presents with progressive functional decline, shortness of breath, productive cough. She was recently discharged about a week ago in stable condition after treatment for right lobar pneumonia. Patient states she did well for a few days at home and finished her course of Augmentin, however over the past few days she became increasingly short of breath, productive cough and profound weakness. She denies chest pain, abdominal pain. Patient at this time is not the best historian given her lethargy workup in the ED significant for WBC 8.1, sodium 125, BNP 0. CTA revealed extensive right lower lobe pneumonia, hilar adenopathy. CT abdomen/pelvis suggestive of fluid-filled bowels, and severely distended urinary bladder. Ramos was placed with significant urine output. Ramos removed today for voiding trial. Continues to require inpatient management. Weaning oxygen as tolerated. Pulmonology assisting with care. Problems addressed as follows: #Acute hypoxic respiratory failure #MRSA multifocal pneumonia #Hilar adenopathy ? Initial CTA revealed right lobar pneumonia. No leukocytosis or signs of sepsis at this time. ? CTA also reveals hilar adenopathy and spoke with pulmonology, likely reactive at this time. However, worth investigating given chronic hyponatremia in 120s, possibly SIADH pending labs. ? Sputum culture growing MRSA. Continuing Zyvox. 600 mg p.o. twice daily. Blood cultures negative. ? Repeat CT chest 12/29/2024 revealed worsening opacities, but patient overall clinically improving. Repeat sputum cultures obtained today. -Discussed case with pulmonology today, continue antibiotics. Inflammatory markers remain elevated. Wean oxygen as tolerated. - Supplemental oxygen for goal sats greater 90%. Currently on 6 L. ? Follow-up CBC, CRP, ESR tomorrow. #Right heart failure #Elevated BNP ? Initial BNP 1999, with 3+ pitting edema. Likely further exacerbated by protein/nutritional deficiencies. ? ECHO reveals moderate RV dilation, mildly reduced RV function. RVSP 50 to 55 mmHg. Likely from advanced COPD, probable pulmonary hypertension. ? Hypervolemia resolved with Bumex diuresis, net -4100 mL. ? Holding Bumex today ? Creatinine 0.5, BUN 8 ? Monitor renal function, electrolytes. Follow-up CMP in the morning # Acute on chronic hyponatremia ? Sodium 125 on admission. Down to 122 today. Consistent with SIADH based on labs earlier this month with urine sodium in the 50s. Inappropriately elevated. -Fluid restrict 1500 cc today. Continue sodium chloride replacement with 1000 mg twice daily. #COPD exacerbation ? Current smoker. COPD seems slightly exacerbated today. ? Pulmonology started Jacques Anaya. Hold Trelegy. #Cognitive decline ? Per patient's brother, patient has had cognitive decline since Thanks. He believes that patient is not adequately taking care of herself at home, does not always remember to take her medications, does have boyfriend but he is not around every day. ? Patient is waxing and waning in confusion during hospitalization. Could be hospital-acquired delirium with underlying dementia. ? There is some concern for dementia given progressive cognitive changes. TFTs, B12, folate normal. ? CT head 12/18/2024 shows mild atrophy. ? Started IV Haldol 2 mg as needed for agitation. #Physical deconditioning #Functional decline #Severe protein calorie malnutrition ? PT/OT consulted, recommended home with home health. ? Will provide high-protein shakes with meals. ? TFTs, B12, folate normal. Follow-up vitamin D. #Urinary retention ? Severely distended bladder on initial CT, s/p Ramos insertion with significant output. ? Reattempt voiding trial today. Ramos catheter removed. If no voiding, will consider replacing and leaving in place with outpatient urology referral. #Hypertension ? Continue home lisinopril 10 mg daily. #GERD ? Resume home PPI. Full code DVT prophylaxis: Lovenox 40 mg
[2024-12-30] MEDS: guaiFENesin 600 MG TAB.ER.12H PO (20:46)
[2024-12-30] MEDS: PANTOPRAZOLE 40MG TABLET 40 MG PO (20:46)
--- NOTE | 2024-12-30 22:51 | PC.NURSE ---
Patient has not urinated since motta DC, bladder scan showed 320ml, 300ml, notified Sanjay NUNES. Patient got to bedside, unable to urinate. Abdomen distended, but patient is not uncomfortable. Stated to rescan at 0200.
[2024-12-31] VITALS (23 sets, daily range): BP systolic 109–137; BP diastolic 55–68; PULSE 65–108; RESP 14–27; TEMP 34.8–36.7; O2SAT 91–100
[2024-12-31] MEDS: IPRATROPIUM/ALBUTEROL 3 ML NEB IH ×5 (00:13→23:57)
--- NOTE | 2024-12-31 01:53 | PC.NURSE ---
Bladder scanned 480ml, 469ml, notified Chelly Grace, patient is comfortable and not in pain, tried bedside commode, bowel movement only, states to rescan 0400.
--- NOTE | 2024-12-31 01:54 | PC.NURSE ---
Unable to get temp on patient axillary or oral, rectal temp obtained 95.0, warm blankets applied and room temp increased, fan turned off. Rechecked rectal temp 94.9, renan paws applied at this time.
--- NOTE | 2024-12-31 03:17 | PC.NURSE ---
Rectal temp 0245 94.6, oral temp obtained 97.9, patient stated she was feeling really hot and she could not handle the heat, stated she was feeling short of breathe, renan paws removed at this time, patient face feels flushed, patient O2 dropped to 83%, venti applied , maintained 85%, vapotherm reapplied at this time, .
--- NOTE | 2024-12-31 05:26 | PC.NURSE ---
Addendum entered by Flores Farmer RN 12/31/24 05:53: notified Sanjay NUNES at bedside, stated to straight cath patient Original Note: 670ml in bladder
--- NOTE | 2024-12-31 06:29 | PC.NURSE ---
in/out cath, 750mL yellow clear urine
[2024-12-31] MEDS: BUDESONIDE 0.5MG/2ML NEB 0.5 MG IH ×2 (06:30→18:25)
[2024-12-31 07:29] LABS: C-Reactive Protein 147.8 mg/L (0-4)
[2024-12-31 07:44] LABS: Erythrocyte Sedimentation Rate > 140 mm/hr (0-30)
[2024-12-31 07:45] LABS: Albumin Level 2.4 g/dl (3.5-5.0); Chloride 78 mmol/L (98-107)
[2024-12-31 07:46] LABS: Potassium 3.6 mmoL/L (3.5-5.1); Sodium 119 mmol/L (136-145)
[2024-12-31 07:47] LABS: Basophils % 0.1 % (0.1-2.0); Eosinophils % 0.3 % (0.1-12.0); Hematocrit 22.6 % (37.0-47.0); Hemoglobin 7.4 g/dL (12.2-16.2); Lymphocytes # 0.3 K/mm3 (0.7-4.5); Lymphocytes % 4.3 % (10-50); Mean Corpuscular HGB Conc 32.7 g/dL (31.8-35.4); Mean Corpuscular Hemoglobin 26.1 pg (27.0-31.2); Mean Corpuscular Volume 79.9 fl (81-99); Mean Platelet Volume 10.7 fl (7.4-10.4); Monocytes # 0.3 K/mm3 (0.1-1.0); Monocytes % 4.4 % (1.7-9.3); Neutrophils # 6.1 K/mm3 (1.8-7.8); Neutrophils % 89.4 % (37.0-80.0); Platelet Count 124 K/mm3 (142-424); Red Blood Count 2.83 M/mm3 (4.20-5.40); Red Cell Distribution Width 17.9 % (11.5-17.5); White Blood Count 6.8 K/mm3 (4.8-10.8)
[2024-12-31 07:48] LABS: Alanine Aminotransferase 17 U/L (12-78); Aspartate Amino Transferase 22 U/L (14-36); Blood Urea Nitrogen 8 mg/dl (7-17); Carbon Dioxide 38 mmol/L (22.0-30.0); Creatinine Clearance Estimated 48 mL/min (50-200); Estimated Glomerular Filt Rate 124 ml/min (>60); GFR (African American) 150 ML/MIN (>60); Total Protein,Serum 5.2 g/dl (6.3-8.2)
[2024-12-31 07:49] LABS: Albumin/Globulin Ratio 0.9 (1.1-1.8); Alkaline Phosphatase 93 U/L (38-126); Anion Gap 6.6 mEq/L (5-15); Bilirubin,Total < 0.1 mg/dl (0.2-1.3); Calcium 7.6 mg/dl (8.4-10.2); Globulin 2.8 g/dL (1.3-3.2); Glucose 85 mg/dl (74-100); Magnesium 1.7 mg/dl (1.6-2.3)
--- NOTE | 2024-12-31 08:47 | PC.NURSE ---
tech notified this RN of inability to get oral or axillary temp on pt. this rn checked rectal temp of pt and it was 95.8 @ 0845. Diyva paws applied, temp in room turned up and multiple warm blankets applied to pt.
[2024-12-31] MEDS: SODIUM CHLORIDE 1,000MG TABLET 1000 MG PO (08:56)
[2024-12-31] MEDS: guaiFENesin 600 MG TAB.ER.12H PO (08:56)
[2024-12-31] MEDS: ENOXAPARIN 40MG/0.4ML SYRINGE 40 MG SUBCUT (08:56)
[2024-12-31] MEDS: LINEZOLID 600 MG/300 ML IV.SOLN 300 MG IV ×2 (08:56→22:06)
[2024-12-31] MEDS: LISINOPRIL 10MG TABLET 10 MG PO (08:56)
[2024-12-31] MEDS: SODIUM CHLORIDE 3 % 500 ML 25 ML IV (09:29)
--- NOTE | 2024-12-31 10:22 | XR_ITS ---
FINAL REPORT CLINICAL HISTORY: pnm COMPARISON: 12/28/2024 FINDINGS: A portable view of the chest was obtained. Mild cardiomegaly is noted. There are bilateral perihilar and bibasilar airspace opacities, right greater than left, and bilateral pleural effusions also right greater than left. These are favored to represent pneumonia. Pulmonary edema is not excluded. There is no pneumothorax. IMPRESSION: Airspace opacities and pleural effusion favoring pneumonia but pulmonary edema not excluded. Reviewed, Interpreted and Dictated by Anais Raygoza MD Transcribed by Kelsey Bejarano Authenticated and [facility]
--- NOTE | 2024-12-31 11:02 | PC.NURSE ---
Addendum entered by Fadumo Ricks RN 12/31/24 11:04: PT HAD A TOTAL OF 420ML THIS AM WITH BREAKFAST Original Note: LATE ENTRY FOR 829: HOSPITALIST CALLED TO NOTIFY THIS RN THAT PT EXCEEDED FLUID RESTRICTION IN THE LAST 24 HRS. ASKED PT TO HAVE 1500 FLUID RESTRICTION ENFORCED. THIS RN REEDUCATED PT AND , NOTIFIED TECHS & WROTE ON PT WHITEBOARD. PT AGREEABLE TO RESTRICTION
[2024-12-31] MEDS: MAGNESIUM SULFATE IN WATER 2 GM/50 ML PIGGYBACK IV ×2 (11:58→12:26)
[2024-12-31 12:52] LABS: Microscopic, Urine URINE MICROSCOPIC (MICROSCOPIC)
[2024-12-31 13:00] LABS: Appearance,Urine CLEAR (Clear); Bilirubin,Urine Negative (Negative); Blood, Urine TRACE-L (Negative); Color,Urine YELLOW (Yellow); Glucose,Urine (UA) Negative (Negative); Ketones,Urine Negative (Negative); Leukocyte Esterase,Urine Negative (Negative); Nitrate,Urine Negative (Negative); PH,Urine 6.5 (5.0-8.5); Protein,Urine TRACE (Negative); Urobilinogen,Urine 0.2 EU/dl (0.2)
[2024-12-31 13:12] LABS: Bacteria,Urine Trace /lpf; WBC,Urine Occasional #/hpf (0-3); Yeast,Urine Occasional /lpf
--- NOTE | 2024-12-31 13:37 | PC.NURSE ---
This rn has placed the renan paws and multiple blankets on the pt numerous times. pt refuses to leave blankets on and states that she is hot . educated pt on the need for the extra warmth. pt is adamant that she does not want the covers on. will recheck temp and attempt to apply blankets another time.
[2024-12-31 15:37] LABS: Chloride 82 mmol/L (98-107); Sodium 120 mmol/L (136-145)
[2024-12-31 15:38] LABS: Potassium 3.6 mmoL/L (3.5-5.1)
[2024-12-31 15:40] LABS: Blood Urea Nitrogen 9 mg/dl (7-17); Creatinine Clearance Estimated 48 mL/min (50-200); Estimated Glomerular Filt Rate 100 ml/min (>60); GFR (African American) 121 ML/MIN (>60)
[2024-12-31 15:41] LABS: Anion Gap 6.6 mEq/L (5-15); Calcium 7.5 mg/dl (8.4-10.2); Carbon Dioxide 35 mmol/L (22.0-30.0); Glucose 84 mg/dl (74-100)
--- NOTE | 2024-12-31 17:16 | PC.NURSE ---
PT FOUND ON BOTTOM IN FRONT OF RECLINING CHAIR AT 1712. PT STATES THAT SHE SLIPPED OUT OF CHAIR. NO LOSS OF CONSCIOUSNESS. NO COMPLAINTS OF PAIN. NO VISIBLE INJURY. VSS. BP 128/61 HR 102 O2 100% ON VAPOTHERM RR 20. NON SLIP SOCKS WERE IN PLACE, CHAIR ALARM WAS REMOVED BY PT AND SITTING IN CHAIR. PROVIDER NOTIFIED. PT PLACED INTO BED WITH BED ALARM IN PLACE. PT EDUCATED ON THE NEED TO CALL OUT FOR HELP. PT HAS NO NEEDS OR COMPLAINTS AT THIS TIME.
--- NOTE | 2024-12-31 17:43 | P.PN_ITS ---
Subjective *Date: 12/31/24 *Time: 17:43 Interval history: Feeling no better today. Transitioned back to Vapotherm overnight. Currently on 40 L and 60%. Afebrile with no nausea or vomiting. Sodium down a bit today. Had persistence of urinary retention necessitating placement of Ramos catheter this morning. Patient appears fatigued but is oriented to self and place. Weak globally. Working with therapy. Medical Exam Vital signs and Labs for Last 24 Hours: Vital Signs Temp Pulse Pulse Resp BP Pulse Ox O2 Del Method 12/31/24 17:15 102 H 20 128/61 100 Vapotherm 12/31/24 16:00 90 12/31/24 15:00 Vapotherm 12/31/24 14:00 Vapotherm 12/31/24 13:00 Vapotherm 12/31/24 12:45 98 F 12/31/24 12:00 100 H 12/31/24 12:00 98.1 F 98 H 18 137/58 L 93 L Vapotherm 12/31/24 12:00 97.6 F 92 H 22 125/66 92 L Vapotherm 12/31/24 11:45 97.8 F 12/31/24 11:05 83 12/31/24 11:05 84 12/31/24 11:05 92 L Vapotherm 12/31/24 11:00 Vapotherm 12/31/24 10:45 97.6 F 12/31/24 09:47 96.4 F L 12/31/24 09:00 Vapotherm 12/31/24 08:00 84 Vapotherm 12/31/24 08:00 90 12/31/24 08:00 95.8 F L 79 14 127/58 L 94 L Vapotherm 12/31/24 06:36 Vapotherm 12/31/24 06:31 83 12/31/24 06:31 86 12/31/24 06:31 99 Vapotherm 12/31/24 05:00 Vapotherm 12/31/24 04:00 97.7 F 80 18 133/62 95 Vapotherm 12/31/24 04:00 83 22 125/68 93 L Vapotherm 12/31/24 04:00 80 12/31/24 03:22 95 Vapotherm 12/31/24 03:17 97.9 F 12/31/24 03:00 Nasal Cannula 12/31/24 02:45 94.7 F L 12/31/24 01:00 Nasal Cannula 12/31/24 00:14 69 12/31/24 00:14 77 12/31/24 00:00 65 12/31/24 00:00 82 21 114/61 91 L Nasal Cannula 12/30/24 23:00 Nasal Cannula 12/30/24 21:00 Nasal Cannula 12/30/24 20:00 80 12/30/24 20:00 Nasal Cannula 12/30/24 20:00 97.6 F 85 17 110/52 L 93 L Nasal Cannula 12/30/24 19:00 Nasal Cannula 12/30/24 18:28 86 12/30/24 18:28 86 12/30/24 18:28 91 L Nasal Cannula 12/30/24 18:00 83 17 132/75 95 Nasal Cannula O2 Flow Rate FiO2 12/31/24 17:15 12/31/24 16:00 12/31/24 15:00 12/31/24 14:00 40 60 12/31/24 13:00 12/31/24 12:45 12/31/24 12:00 12/31/24 12:00 12/31/24 12:00 40 60 12/31/24 11:45 12/31/24 11:05 12/31/24 11:05 12/31/24 11:05 40 60 12/31/24 11:00 40 12/31/24 10:45 12/31/24 09:47 12/31/24 09:00 12/31/24 08:00 40 65 12/31/24 08:00 12/31/24 08:00 12/31/24 06:36 12/31/24 06:31 12/31/24 06:31 12/31/24 06:31 65 12/31/24 05:00 12/31/24 04:00 12/31/24 04:00 12/31/24 04:00 12/31/24 03:22 40 65 12/31/24 03:17 12/31/24 03:00 6 12/31/24 02:45 12/31/24 01:00 6 12/31/24 00:14 12/31/24 00:14 12/31/24 00:00 12/31/24 00:00 6 12/30/24 23:00 5 12/30/24 21:00 5 12/30/24 20:00 12/30/24 20:00 5 12/30/24 20:00 12/30/24 19:00 5 12/30/24 18:28 12/30/24 18:28 12/30/24 18:28 6 12/30/24 18:00 5 Intake and Output 12/31/24 12/31/24 12/31/24 07:59 15:59 23:59 Intake Total 480 / 1598 918 / 1598 200 / 1598 Output Total 250 / 250 Balance 480 / 1348 668 / 1348 200 / 1348 Intake: Intake, Oral Amount 180 / 760 480 / 760 100 / 760 Intake, Total IV Amount 300 / 838 438 / 838 100 / 838 Linezolid 600 mg In 300 ml @ 300 / 590 290 / 590 300 mls/hr IV Q12H [facility] Rx#: [id number] Magnesium Sulfate in Water 2 gm 80 / 80 In 50 ml @ 50 mls/hr IV Q1H [facility] Rx#:[id number] Sodium Chloride 3 % 500 ml @ 25 68 / 168 100 / 168 mls/hr IV .Q20H [facility] Rx#: [id number] Output: Output, Urine Amount 250 / 250 Other: Number of Bowel Movements 1 Weight 54.613 kg Patient Weight 12/31/24 23:59 Weight 54.613 kg Laboratory Results - last 24 hr 12/30/24 06:00: Cortisol 21.0 H 12/31/24 06:58: WBC 6.8, RBC 2.83 L, Hgb 7.4 L, Hct 22.6 L, MCV 79.9 L, MCH 26.1 L, MCHC 32.7, RDW 17.9 H, Plt Count 124 L, MPV 10.7 H, Neut % (Auto) 89.4 H, Lymph % (Auto) 4.3 L, [place] % (Auto) 4.4, Eos % (Auto) 0.3, Baso % (Auto) 0.1, Neut # (Auto) 6.1, Lymph # (Auto) 0.3 L, [place] # (Auto) 0.3, Eos # (Auto) 0.0, Baso # (Auto) 0.0, ESR > 140 H, Sodium 119 L, Potassium 3.6, Chloride 78 L, Carbon Dioxide 38 H, Anion Gap 6.6, BUN 8, Creatinine 0.50 L, Estimated Creat Clear 48, Estimated GFR 124, Est GFR ( Amer) 150, Glucose 85, Calcium 7.6 L, Magnesium 1.7 D, Total Bilirubin < 0.1 L, AST 22 D, ALT 17, Alkaline Phosphatase 93, C-Reactive Protein 147.8 H, Total Protein 5.2 L, Albumin 2.4 L D , Globulin 2.8, Albumin/Globulin Ratio 0.9 L 12/31/24 11:45: Urine Color Yellow, Urine Appearance Clear, Urine pH 6.5, Ur Specific [place] 1.010, Urine Protein Trace, Urine Glucose (UA) Negative, Urine Ketones Negative, Urine Blood Trace-l, Urine Nitrate Negative, Urine Bilirubin Negative, Urine Urobilinogen 0.2, Ur Leukocyte Esterase Negative, Urine RBC 3-5, Urine WBC Occasional, Ur Squamous Epith Cells 3-5, Urine Bacteria Trace, Urine Yeast Occasional 12/31/24 15:26: Sodium 120 L, Potassium 3.6, Chloride 82 L, Carbon Dioxide 35 H, Anion Gap 6.6, BUN 9, Creatinine 0.60, Estimated Creat Clear 48, Estimated GFR 100, Est GFR ( Amer) 121, Glucose 84, Calcium 7.5 L I & O for Labs for Last 24 Hours: Intake & Output 12/28/24 12/29/24 12/30/24 12/31/24 23:59 23:59 23:59 23:59 Intake Total 1889 / 2069 1140 / 1440 2231 / 2531 1598 / 1598 Output Total 2450 / 2450 2049 650 / 650 250 / 250 Balance -560 / -380 -910 / -610 1581 / 1881 1348 / 1348 Weight 51.785 kg 49.578 kg 51.8 kg 54.613 kg Microbiology Reports for the Last 24 Hours: Microbiology 12/29/24 16:18 Sputum - Expectorated Sputum Gram Stain - Final 12/29/24 16:18 Sputum - Expectorated Sputum Sputum Culture - Preliminary Gram Positive Cocci Gram Negative Rods 12/25/24 14:37 Blood Blood Culture - Final NO GROWTH AFTER 5 DAYS 12/25/24 14:37 Blood Blood Culture - Final NO GROWTH AFTER 5 DAYS Constitutional: Present no acute distress, cachectic, chronically ill appearing and cooperative Head: Present atraumatic and normocephalic ENT: Present normal exam Respiratory: Present prolonged expiratory phase, wheezes, crackles and normal respiratory effort; Absent rhonchi Cardiac: Present Reg Rate and Rhythm GI: Present soft and normal bowel sounds; Absent distention or tenderness Extremities: Present normal inspection and full ROM Skin: Present intact; Absent erythema Neuro: Present Grossly Intact, alert, awake, oriented x 3 and moves all extremities Assessment and Plan *Assessment and plan (1) Right lower lobe pneumonia: Status: Acute Category: Medical Code(s): J18.9 - Pneumonia, unspecified organism (2) Acute urinary retention: Status: Acute Category: Medical Code(s): R33.8 - Other retention of urine (3) MRSA pneumonia: Status: Acute Category: Medical Code(s): J15.212 - Pneumonia due to Methicillin resistant Staphylococcus aureus (4) Acute respiratory failure with hypoxemia: Status: Acute Category: Medical Code(s): J96.01 - Acute respiratory failure with hypoxia (5) Severe protein-calorie malnutrition: Status: Acute Category: Medical Code(s): E43 - Unspecified severe protein-calorie malnutrition (6) SIADH (syndrome of inappropriate ADH production): Status: Acute Category: Medical Code(s): E22.2 - Syndrome of inappropriate secretion of antidiuretic hormone (7) Hyponatremia: Status: Acute Category: Medical Code(s): E87.1 - Hypo-osmolality and hyponatremia Plan Marisa Kruse is a 64-year-old female with a medical history of COPD, hypertension, extensive smoking history, chronic hyponatremia, CAD presents with progressive functional decline, shortness of breath, productive cough. She was recently discharged about a week ago in stable condition after treatment for r ight lobar pneumonia. Patient states she did well for a few days at home and finished her course of Augmentin, however over the past few days she became increasingly short of breath, productive cough and profound weakness. She denies chest pain, abdominal pain. Patient at this time is not the best historian given her lethargy workup in the ED significant for WBC 8.1, sodium 125, BNP 2070. CTA revealed extensive right lower lobe pneumonia, hilar adenopathy. CT abdomen/pelvis suggestive of fluid-filled bowels, and severely distended urinary bladder. Ramos removed yesterday, had persistent retention. Ramos replaced this morning. Continues to require inpatient management. Escalated oxygen requirement from nasal cannula to Vapotherm. Pulmonology to plan for bronchoscopy in the morning. Problems addressed as follows: #Acute hypoxic respiratory failure #MRSA multifocal pneumonia #Hilar adenopathy ? Initial CTA revealed right lobar pneumonia. No leukocytosis or signs of sepsis at this time. ? CTA also reveals hilar adenopathy and spoke with pulmonology, likely reactive at this time. However, worth investigating given chronic hyponatremia in 120s, possibly SIADH pending labs. ? Sputum culture growing MRSA. Continuing Zyvox. 600 mg p.o. twice daily. Blood cultures negative. ? Repeat CT chest 12/29/2024 revealed worsening opacities, but patient overall clinically improving. Repeat sputum cultures obtained today. -Discussed case with pulmonology today, continue antibiotics. Inflammatory markers remain elevated with ESR greater than 140 and CRP of 147. On Vapotherm 40 L and 60%. Will plan for bronchoscopy in the morning. ? Follow-up CBC, CRP, ESR tomorrow. -White count 6.8, hemoglobin 7.4. #Right heart failure #Elevated BNP ? Initial BNP 2000, with 3+ pitting edema. Likely further exacerbated by protein/nutritional deficiencies. ? ECHO reveals moderate RV dilation, mildly reduced RV function. RVSP 50 to 55 mmHg. Likely from advanced COPD, probable pulmonary hypertension. ? Hypervolemia resolved with Bumex diuresis, net -4100 mL. ? Holding Bumex today ? Creatinine 0.5, BUN 8 ? Monitor renal function, electrolytes. Follow-up CMP in the morning # Acute on chronic hyponatremia ? Sodium 125 on admission. Down to 119 this morning with chloride of 78. Serial BMP every 8 hours. Initiate hypertonic saline at 25 cc an hour. Fluid restrict to less than 1.5 liters daily. - Consistent with SIADH based on labs earlier this month with urine sodium in the 50s. Inappropriately elevated. - Continue sodium chloride replacement with 1000 mg twice daily p.o. #COPD exacerbation ? Current smoker. COPD seems slightly exacerbated today. ? Pulmonology started Jacques Anaya. Hold Trelegy. #Cognitive decline ? Per patient's brother, patient has had cognitive decline since . He believes that patient is not adequately taking care of herself at home, does not always remember to take her medications, does have boyfriend but he is not around every day. ? Patient is waxing and waning in confusion during hospitalization. Could be hospital-acquired delirium with underlying dementia. ? There is some concern for dementia given progressive cognitive changes. TFTs, B12, folate normal. ? CT head 12/18/2024 shows mild atrophy. ? Started IV Haldol 2 mg as needed for agitation. #Physical deconditioning #Functional decline #Severe protein calorie malnutrition ? PT/OT consulted, recommended home with home health. ? Will provide high-protein shakes with meals. ? TFTs, B12, folate normal. Follow-up vitamin D. #Urinary retention ? Severely distended bladder on initial CT, s/p Ramos insertion with significant output. ? Reattempt voiding trial today. Ramos catheter removed. If no voiding, will consider replacing and leaving in place with outpatient urology referral. #Hypertension ? Continue home lisinopril 10 mg daily. #GERD ? Resume home PPI. Full code DVT prophylaxis: Lovenox 40 mg
--- NOTE | 2024-12-31 18:44 | PC.NURSE ---
vapotherm turned to 40L 40%fio2
[2024-12-31] MEDS: HALOPERIDOL LACTATE 5 MG/ML VIAL 2 MG IV (18:58)
[2024-12-31 19:44] LABS: ABG Base Excess 1.7 mmol/L (-2.4-2.3); ABG HCO3 28.2 mmhg (22.0-26.0); ABG Oxygen Saturation 80 % (90-100)
[2024-12-31 19:46] LABS: Allen's Test Acceptable; Oxygen Vapotherm 40L/75% %; Source Right Radial
[2024-12-31 19:49] LABS: ABG PCO2 58.8 mmhg (35.0-45.0)
[2024-12-31 19:52] LABS: Lactate Arterial 1.2 mmol/L (0.4-2.0)
[2024-12-31 22:33] LABS: Chloride 85 mmol/L (98-107); Potassium 3.4 mmoL/L (3.5-5.1); Sodium 123 mmol/L (136-145)
[2024-12-31 22:36] LABS: Blood Urea Nitrogen 10 mg/dl (7-17); Creatinine Clearance Estimated 48 mL/min (50-200); Estimated Glomerular Filt Rate 124 ml/min (>60); GFR (African American) 150 ML/MIN (>60)
[2024-12-31 22:37] LABS: Anion Gap 7.4 mEq/L (5-15); Calcium 7.4 mg/dl (8.4-10.2); Carbon Dioxide 34 mmol/L (22.0-30.0); Glucose 102 mg/dl (74-100)
[2025-01-01] VITALS (80 sets, daily range): BP systolic 76–139; BP diastolic 39–75; PULSE 70–112; RESP 15–30; TEMP 34.7–37.8; O2SAT 85–100; BMI 19.1
--- NOTE | 2025-01-01 03:16 | PC.NURSE ---
patient had slept throughout the shift, patient was placed on BiPAP at [address] Mac, patient has tolerated well with O2 sat remaining >95%, motta catheter noted, no complaints of pain or discomfort, bed alarm is on and functioning, call button is in reach
--- NOTE | 2025-01-01 04:18 | PC.NURSE ---
patient temp is 96.3, warm blankets applied
--- NOTE | 2025-01-01 06:00 | XR_ITS ---
PROCEDURE INFORMATION: Exam: XR Chest Exam date and time: 01/01/2025 5:40 AM Age: 64 years old Clinical indication: Shortness of breath; Additional info: Increased oxygen needs TECHNIQUE: Imaging protocol: Radiologic exam of the chest. Views: 1 view. COMPARISON: CR XR CHEST PORTABLE 12/31/2024 10:55 AM FINDINGS: Lungs: Patchy bibasilar airspace opacities not significantly changed from prior. Stable bilateral effusions. Pleural spaces: Unremarkable. No pleural effusion. No pneumothorax. Heart/Mediastinum: Stable cardiomegaly. Bones/joints: Unremarkable. IMPRESSION: Patchy bibasilar airspace opacities not significantly changed from prior. Stable bilateral effusions. Stable cardiomegaly.
[2025-01-01] MEDS: BUDESONIDE 0.5MG/2ML NEB 0.5 MG IH ×2 (06:24→18:20)
[2025-01-01] MEDS: IPRATROPIUM/ALBUTEROL 3 ML NEB IH ×5 (06:24→21:54)
[2025-01-01 06:55] LABS: C-Reactive Protein 135.9 mg/L (0-4)
[2025-01-01 07:30] LABS: Erythrocyte Sedimentation Rate > 140 mm/hr (0-30)
[2025-01-01 08:16] LABS: Magnesium 2.1 mg/dl (1.6-2.3)
--- NOTE | 2025-01-01 08:19 | EXP.PHA.PN ---
Subjective *Date: 01/01/25 *Time: 08:19 Medical Exam Vital signs and Labs for Last 24 Hours: Vital Signs Temp Pulse Pulse Resp BP Pulse Ox O2 Del Method 01/01/25 06:57 BiPAP 01/01/25 06:24 80 01/01/25 06:24 81 01/01/25 06:24 01/01/25 06:00 70 20 117/60 97 BiPAP 01/01/25 05:00 BiPAP 01/01/25 04:00 96.3 F L 01/01/25 04:00 80 16 138/60 96 BiPAP 01/01/25 04:00 70 01/01/25 03:00 BiPAP 01/01/25 02:22 01/01/25 02:00 99 BiPAP 01/01/25 02:00 73 19 110/53 L 100 BiPAP 01/01/25 01:00 BiPAP 01/01/25 00:58 01/01/25 00:39 96.4 F L 01/01/25 00:02 78 01/01/25 00:02 74 01/01/25 00:00 75 18 122/75 100 BiPAP 01/01/25 00:00 70 01/01/25 00:00 100 BiPAP 12/31/24 23:00 BiPAP 12/31/24 22:00 12/31/24 22:00 85 17 114/63 100 BiPAP 12/31/24 21:00 BiPAP 12/31/24 20:20 12/31/24 20:00 95 H 17 109/55 L 100 BiPAP 12/31/24 20:00 100 BiPAP 12/31/24 20:00 90 12/31/24 19:55 97.5 F L 12/31/24 18:46 92 L Vapotherm 12/31/24 18:36 Vapotherm 12/31/24 18:26 108 H 12/31/24 18:26 107 H 12/31/24 18:26 100 Vapotherm 12/31/24 18:13 97.7 F 12/31/24 17:15 102 H 20 128/61 100 Vapotherm 12/31/24 17:00 Vapotherm 12/31/24 16:00 90 12/31/24 15:00 Vapotherm 12/31/24 14:00 Vapotherm 12/31/24 13:00 Vapotherm 12/31/24 12:45 98 F 12/31/24 12:00 100 H 12/31/24 12:00 98.1 F 98 H 18 137/58 L 93 L Vapotherm 12/31/24 12:00 97.6 F 92 H 22 125/66 92 L Vapotherm 12/31/24 11:45 97.8 F 12/31/24 11:05 83 12/31/24 11:05 84 12/31/24 11:05 92 L Vapotherm 12/31/24 11:00 Vapotherm 12/31/24 10:45 97.6 F 12/31/24 09:47 96.4 F L 12/31/24 09:00 Vapotherm O2 Flow Rate FiO2 01/01/25 06:57 01/01/25 06:24 01/01/25 06:24 01/01/25 06:24 50 01/01/25 06:00 01/01/25 05:00 01/01/25 04:00 01/01/25 04:00 01/01/25 04:00 01/01/25 03:00 01/01/25 02:22 50 01/01/25 02:00 01/01/25 02:00 01/01/25 01:00 01/01/25 00:58 60 01/01/25 00:39 01/01/25 00:02 01/01/25 00:02 01/01/25 00:00 01/01/25 00:00 01/01/25 00:00 75 12/31/24 23:00 12/31/24 22:00 75 12/31/24 22:00 12/31/24 21:00 12/31/24 20:20 75 12/31/24 20:00 12/31/24 20:00 12/31/24 20:00 12/31/24 19:55 12/31/24 18:46 40 40 12/31/24 18:36 12/31/24 18:26 12/31/24 18:26 12/31/24 18:26 40 60 12/31/24 18:13 12/31/24 17:15 12/31/24 17:00 12/31/24 16:00 12/31/24 15:00 12/31/24 14:00 40 60 12/31/24 13:00 12/31/24 12:45 12/31/24 12:00 12/31/24 12:00 12/31/24 12:00 40 60 12/31/24 11:45 12/31/24 11:05 12/31/24 11:05 12/31/24 11:05 40 60 12/31/24 11:00 40 12/31/24 10:45 12/31/24 09:47 12/31/24 09:00 Intake and Output 12/31/24 01/01/25 01/01/25 23:59 07:59 15:59 Intake Total 798 / 2196 250 / 250 Output Total 550 / 550 Balance 798 / 1946 -300 / -300 Intake: Intake, Oral Amount 340 / 1000 Intake, Total IV Amount 458 / 1196 250 / 250 Linezolid 600 mg In 300 ml @ 300 / 890 300 mls/hr IV Q12H [facility] Rx#: [id number] Sodium Chloride 3 % 500 ml @ 25 158 / 226 250 / 250 mls/hr IV .Q20H [facility] Rx#: [id number] Output: Output, Urine Amount 550 / 550 Other: Number of Unmeasured Voids 0 Number of Bowel Movements 1 Weight 51.982 kg Patient Weight 01/01/25 23:59 Weight 51.982 kg Laboratory Results - last 24 hr 12/31/24 11:45: Urine Color Yellow, Urine Appearance Clear, Urine pH 6.5, Ur Specific [place] 1.010, Urine Protein Trace, Urine Glucose (UA) Negative, Urine Ketones Negative, Urine Blood Trace-l, Urine Nitrate Negative, Urine Bilirubin Negative, Urine Urobilinogen 0.2, Ur Leukocyte Esterase Negative, Urine RBC 3-5, Urine WBC Occasional, Ur Squamous Epith Cells 3-5, Urine Bacteria Trace, Urine Yeast Occasional 12/31/24 15:26: Sodium 120 L, Potassium 3.6, Chloride 82 L, Carbon Dioxide 35 H, Anion Gap 6.6, BUN 9, Creatinine 0.60, Estimated Creat Clear 48, Estimated GFR 100, Est GFR ( Amer) 121, Glucose 84, Calcium 7.5 L 12/31/24 19:27: Specimen Source Right radial, O2 % Vapotherm 40l/75%, ABG pH 7.30 L, ABG pCO2 58.8 H, ABG pO2 52.0 L, ABG HCO3 28.2 H, ABG Total CO2 30.0 H, ABG O2 Saturation 80 L*, ABG Base Excess 1.7, Emigdio Test Acceptable, ABG Lactate 1.2 12/31/24 22:17: Sodium 123 L, Potassium 3.4 L, Chloride 85 L, Carbon Dioxide 34 H, Anion Gap 7.4, BUN 10, Creatinine 0.50 L, Estimated Creat Clear 48, Estimated GFR 124, Est GFR ( Amer) 150 D, Glucose 102 H D, Calcium 7.4 L 01/01/25 06:05: ESR > 140 H, C-Reactive Protein 135.9 H I & O for Labs for Last 24 Hours: Intake & Output 12/29/24 12/30/24 12/31/24 01/01/25 23:59 23:59 23:59 23:59 Intake Total 1140 / 1440 2231 / 2531 2196 / 2196 250 / 250 Output Total 2049 / 0 650 / 650 250 / 250 550 / 550 Balance -910 / -610 1581 / 1881 1946 / 1946 -300 / -300 Weight 49.578 kg 51.8 kg 54.613 kg 51.982 kg Microbiology Reports for the Last 24 Hours: Microbiology 12/29/24 16:18 Sputum - Expectorated Sputum Gram Stain - Final 12/29/24 16:18 Sputum - Expectorated Sputum Sputum Culture - Preliminary Gram Positive Cocci Gram Negative Rods The patient's infection will respond to the chosen ABx?: Yes (12/27 SPUTUM = MRSA, REPEAT SPUTUM = GRAM POS COCCI, GRAM NEG RODS, AFEBRILE) Is the patient receiving the right drug, dose, and route?: Yes Could a more targeted ABx be ordered?: No How long ABx needed (days)?: 7
[2025-01-01] MEDS: guaiFENesin 600 MG TAB.ER.12H PO (08:30)
[2025-01-01] MEDS: NYSTATIN SUSP 500,000 UNITS/5ML UDC 500000 UNIT PO (08:30)
[2025-01-01] MEDS: ENOXAPARIN 40MG/0.4ML SYRINGE 40 MG SUBCUT (08:30)
[2025-01-01] MEDS: SODIUM CHLORIDE 1,000MG TABLET 1000 MG PO (08:31)
[2025-01-01] MEDS: LINEZOLID 600 MG/300 ML IV.SOLN 300 MG IV ×2 (08:31→21:15)
[2025-01-01] MEDS: LISINOPRIL 10MG TABLET 10 MG PO (08:31)
[2025-01-01 09:09] LABS: Basophils % 0.2 % (0.1-2.0); Eosinophils % 0.2 % (0.1-12.0); Hematocrit 21.5 % (37.0-47.0); Lymphocytes # 0.3 K/mm3 (0.7-4.5); Lymphocytes % 4.8 % (10-50); Mean Corpuscular HGB Conc 32.1 g/dL (31.8-35.4); Mean Corpuscular Hemoglobin 26.2 pg (27.0-31.2); Mean Corpuscular Volume 81.7 fl (81-99); Monocytes # 0.3 K/mm3 (0.1-1.0); Monocytes % 5.1 % (1.7-9.3); Neutrophils # 4.7 K/mm3 (1.8-7.8); Neutrophils % 88.9 % (37.0-80.0); Platelet Count 122 K/mm3 (142-424); Red Blood Count 2.63 M/mm3 (4.20-5.40); Red Cell Distribution Width 17.8 % (11.5-17.5); White Blood Count 5.3 K/mm3 (4.8-10.8)
[2025-01-01 09:11] LABS: Albumin Level 2.4 g/dl (3.5-5.0); Chloride 89 mmol/L (98-107); Hemoglobin 6.9 g/dL (12.2-16.2); Potassium 3.3 mmoL/L (3.5-5.1); Sodium 126 mmol/L (136-145)
[2025-01-01 09:14] LABS: Alanine Aminotransferase 15 U/L (12-78); Albumin/Globulin Ratio 0.8 (1.1-1.8); Alkaline Phosphatase 88 U/L (38-126); Anion Gap 5.3 mEq/L (5-15); Aspartate Amino Transferase 20 U/L (14-36); Blood Urea Nitrogen 7 mg/dl (7-17); Calcium 7.8 mg/dl (8.4-10.2); Carbon Dioxide 35 mmol/L (22.0-30.0); Creatinine Clearance Estimated 46 mL/min (50-200); Estimated Glomerular Filt Rate 124 ml/min (>60); GFR (African American) 150 ML/MIN (>60); Glucose 105 mg/dl (74-100); Magnesium 2.1 mg/dl (1.6-2.3); Total Protein,Serum 5.4 g/dl (6.3-8.2)
[2025-01-01 09:24] LABS: Bilirubin,Total < 0.1 mg/dl (0.2-1.3)
--- NOTE | 2025-01-01 10:12 | EXP.PULM.PN ---
Subjective *Date: 01/01/25 *Time: 12:37 Interval history: Patient admits no significant improvement in her respiratory distress. Pulmonology Exam Inpatient Vital signs and Labs for Last 24 Hours: Temp Pulse Resp BP Pulse Ox O2 Del Method O2 Flow Rate 96.3 F L 83 30 H 103/52 L 91 L BiPAP 40 01/01/25 04:00 01/01/25 10:00 01/01/25 10:00 01/01/25 10:00 01/01/25 10:00 01/01/25 10:00 12/31/24 18:46 FiO2 50 01/01/25 06:24 Laboratory Results - last 24 hr 12/31/24 11:45: Urine Color Yellow, Urine Appearance Clear, Urine pH 6.5, Ur Specific [place] 1.010, Urine Protein Trace, Urine Glucose (UA) Negative, Urine Ketones Negative, Urine Blood Trace-l, Urine Nitrate Negative, Urine Bilirubin Negative, Urine Urobilinogen 0.2, Ur Leukocyte Esterase Negative, Urine RBC 3-5, Urine WBC Occasional, Ur Squamous Epith Cells 3-5, Urine Bacteria Trace, Urine Yeast Occasional 12/31/24 15:26: Sodium 120 L, Potassium 3.6, Chloride 82 L, Carbon Dioxide 35 H, Anion Gap 6.6, BUN 9, Creatinine 0.60, Estimated Creat Clear 48, Estimated GFR 100, Est GFR ( Amer) 121, Glucose 84, Calcium 7.5 L 12/31/24 19:27: Specimen Source Right radial, O2 % Vapotherm 40l/75%, ABG pH 7.30 L, ABG pCO2 58.8 H, ABG pO2 52.0 L, ABG HCO3 28.2 H, ABG Total CO2 30.0 H, ABG O2 Saturation 80 L*, ABG Base Excess 1.7, Emigdio Test Acceptable, ABG Lactate 1.2 12/31/24 22:17: Sodium 123 L, Potassium 3.4 L, Chloride 85 L, Carbon Dioxide 34 H, Anion Gap 7.4, BUN 10, Creatinine 0.50 L, Estimated Creat Clear 48, Estimated GFR 124, Est GFR ( Amer) 150 D, Glucose 102 H D, Calcium 7.4 L 01/01/25 06:05: ESR > 140 H, Magnesium 2.1 D, C-Reactive Protein 135.9 H 01/01/25 08:48: WBC 5.3, RBC 2.63 L, Hgb 6.9 L, Hct 21.5 L, MCV 81.7, MCH 26.2 L, MCHC 32.1, RDW 17.8 H, Plt Count 122 L, MPV 10.0, Neut % (Auto) 88.9 H, Lymph % (Auto) 4.8 L, [place] % (Auto) 5.1, Eos % (Auto) 0.2, Baso % (Auto) 0.2, Neut # (Auto) 4.7, Lymph # (Auto) 0.3 L, [place] # (Auto) 0.3, Eos # (Auto) 0.0, Baso # (Auto) 0.0, Sodium 126 L, Potassium 3.3 L, Chloride 89 L, Carbon Dioxide 35 H, Anion Gap 5.3, BUN 7 D, Creatinine 0.50 L, Estimated Creat Clear 46, Estimated GFR 124, Est GFR ( Amer) 150, Glucose 105 H, Calcium 7.8 L, Magnesium 2.1, Total Bilirubin < 0.1 L, AST 20, ALT 15, Alkaline Phosphatase 88, Total Protein 5.4 L, Albumin 2.4 L, Globulin 3.0, Albumin/Globulin Ratio 0.8 L Temp Pulse Resp BP Pulse Ox O2 Del Method O2 Flow Rate 98.7 F 120 H 17 123/53 L 97 BiPAP 3 12/26/24 08:00 12/26/24 08:00 12/26/24 08:00 12/26/24 08:25 12/26/24 08:00 12/26/24 09:25 12/26/24 02:00 FiO2 35 12/26/24 07:52 Laboratory Results - last 24 hr 12/25/24 14:17: SARS-CoV-2 (PCR) Not detected, Influenza A Untype (PCR) Not detected, Influenza Type B (PCR) Not detected 12/25/24 14:35: VBG pH 7.35, VBG pCO2 54.9 H, VBG pO2 42.0 H, VBG HCO3 29.4, VBG Total CO2 31.0 H, VBG O2 Saturation 75.5 H, VBG Base Excess 3.7 H, VBG Lactic Acid 0.9 12/25/24 14:37: WBC 8.1, RBC 3.29 L, Hgb 8.6 L, Hct 26.9 L, MCV 81.8, MCH 26.1 L, MCHC 32.0, RDW 18.0 H, Plt Count 100 L, MPV 11.0 H, Neut % (Auto) 89.4 H, Lymph % (Auto) 5.5 L, [place] % (Auto) 4.1, Eos % (Auto) 0.2, Baso % (Auto) 0.1, Neut # (Auto) 7.3, Lymph # (Auto) 0.[address], [place] # (Auto) 0.3, Eos # (Auto) 0.0, Baso # (Auto) 0.0, PT 10.8, INR 0.98, Sodium 125 L, Potassium 4.2, Chloride 89 L, Carbon Dioxide 34 H, Anion Gap 6.2, BUN 12, Creatinine 0.40 L, Estimated Creat Clear 40, Estimated GFR 160, Est GFR ( Amer) 194, Glucose 71 L, Calcium 8.6, Phosphorus 3.2, Magnesium 1.6, Total Bilirubin 0.2, AST 26, ALT 18, Alkaline Phosphatase 85, Troponin I < 0.01, NT-Pro-B Natriuret Pep 2070 H, Total Protein 5.8 L, Albumin 2.8 L, Globulin 3.0, Albumin/Globulin Ratio 0.9 L, TSH 1.44, Thyroxine (T4) 13.0 H 12/25/24 16:30: Urine Color Yellow, Urine Appearance Clear, Urine pH 6.5, Ur Specific [place] 1.010, Urine Protein Negative, Urine Glucose (UA) Negative, Urine Ketones Negative, Urine Blood Negative, Urine Nitrate Negative, Urine Bilirubin Negative, Urine Urobilinogen 0.2, Ur Leukocyte Esterase Negative, Urine RBC None, Urine WBC None, Ur Squamous Epith Cells Occasional, Urine Bacteria Trace 12/25/24 17:25: Troponin I < 0.01 12/25/24 18:53: POC Glucose 71 12/25/24 19:14: Sodium 124 L, Potassium 3.7, Chloride 90 L, Carbon Dioxide 31 H, Anion Gap 6.7, BUN 11, Creatinine 0.40 L, Estimated Creat Clear 43, Estimated GFR 160, Est GFR ( Amer) 194, Glucose 196 H D, Calcium 8.1 L, Troponin I < 0.01, NT-Pro-B Natriuret Pep 2320 H 12/25/24 19:55: Troponin I < 0.01 12/25/24 21:54: Folate 18.40 12/26/24 00:03: Chlamy pneumoniae PCR Not detected, Adenovirus (PCR) Not detected, B. pertussis DNA (PCR) Not detected, Coronavirus OC43 (PCR) Not detected, Coronavirus HKU1 (PCR) Not detected, Coronavirus 229E (PCR) Not detected, SARS-CoV-2 (PCR) Not detected, Coronavirus NL63 (PCR) Not detected, Human Metapneumovir PCR Not detected, Influenza A (H1) PCR Not detected, Influ A (H1N1/09) PCR Not detected, Influenza A (H3) PCR Not detected, Influenza Type A (PCR) Not detected, Influenza Type B (PCR) Not detected, M. pneumoniae (PCR) Not detected, Parainfluenza 1 (PCR) Not detected, Parainfluenza 2 (PCR) Not detected, Parainfluenza 3 (PCR) Not detected, Parainfluenza 4 (PCR) Not detected, RSV (PCR) Not detected, Entero/Rhino (PCR) Not detected 12/26/24 02:39: Specimen Source Right radial, O2 % 50, ABG pH 7.34 L, ABG pCO2 54.7 H, ABG pO2 70.2 L, ABG HCO3 28.7 H, ABG Total CO2 30.4 H, ABG O2 Saturation 92, ABG Base Excess 2.9 H, Emigdio Test Acceptable 12/26/24 06:13: WBC 9.6, RBC 3.04 L, Hgb 8.1 L, Hct 25.0 L, MCV 82.2, MCH 26.6 L, MCHC 32.4, RDW 18.2 H, Plt Count 107 L, MPV 10.7 H, Neut % (Auto) 96.1 H, Lymph % (Auto) 1.[address] L, [place] % (Auto) 1.2 L, Eos % (Auto) 0.0 L, Baso % (Auto) 0.2, Neut # (Auto) 9.2 H, Lymph # (Auto) 0.[address] L, [place] # (Auto) 0.1, Eos # (Auto) 0.0, Baso # (Auto) 0.0, Total Counted 100, Neutrophils % (Manual) 94 H, Band Neutrophils % 1.0, Lymphocytes % (Manual) 3 L, Monocytes % (Manual) 2, Platelet Estimate Slight decrease, RBC Morphology Normal, Hypochromasia 1+, Microcytosis 1+, Sodium 127 L, Potassium 4.1, Chloride 93 L, Carbon Dioxide 31 H, Anion Gap 7.1, BUN 10, Creatinine 0.50 L D, Estimated Creat Clear 43, Estimated GFR 124, Est GFR ( Amer) 150 D, Glucose 64 L D, Hemoglobin A1c 5.3, Lactate < 0.5 L, Calcium 8.4, Magnesium 1.6, TIBC 273, Total Bilirubin < 0.1 L, AST 21, ALT 16, Alkaline Phosphatase 107, NT-Pro-B Natriuret Pep 2720 H, Total Protein 5.6 L, Albumin 2.6 L, Globulin 3.0, Albumin/Globulin Ratio 0.9 L, Triglycerides 56, Cholesterol 111 L, LDL Cholesterol Direct 36.34 L, VLDL Cholesterol 11, HDL Cholesterol 50, Cholesterol/HDL Ratio 2.2, Vitamin B12 > 1000 H, Procalcitonin 0.062, TSH 0.86 D 12/26/24 09:35: VBG pH 7.40, VBG pCO2 45.4, VBG pO2 71.0 H, VBG HCO3 27.7, VBG Total CO2 29.1 H, VBG O2 Saturation 93.7 H, VBG Base Excess 2.9 H, VBG Lactic Acid 0.9 I & O for Labs for Last 24 Hours: Intake & Output 12/29/24 12/30/24 12/31/24 01/01/25 23:59 23:59 23:59 23:59 Intake Total 1140 / 1440 2231 / 2531 2196 / 2196 540 / 540 Output Total 2049 650 / 650 250 / 250 550 / 550 Balance -910 / -610 1581 / 1881 1946 / 1945 -10 / -10 Weight 109 lb 4.8 oz 114 lb 3.2 oz 120 lb 6.4 oz 114 lb 9.6 oz Intake & Output 12/23/24 12/24/24 12/25/24 12/26/24 23:59 23:59 23:59 23:59 Intake Total 4 / 488.750 / 488.750 Output Total 715 / 715 Balance 4 / 304 -226.250 / -226.250 Weight 107 lb 5 oz 108 lb 4.8 oz Microbiology Reports for the Last 24 Hours: Microbiology 12/29/24 16:18 Sputum - Expectorated Sputum Gram Stain - Final 12/29/24 16:18 Sputum - Expectorated Sputum Sputum Culture - Final Staphylococcus aureus Stenotrophomonas species Microbiology 12/25/24 16:10 Sputum - Expectorated Sputum Gram Stain - Final Constitutional: Present severe distress Head: Present normocephalic and atraumatic ENT: Present normal exam, normal oropharynx and mucous membranes moist Neck: Present normal inspection and full ROM Respiratory: Present prolonged expiratory phase, respiratory distress and rhonchi; Absent wheezes or able to speak in complete sentences Cardiac: Present S1/S2, Tachycardia and radial pulses present GI: Present soft and distention; Absent tenderness or guarding Rectal (female): Present deferred (female): Present deferred Skin: Present intact; Absent cyanosis or jaundice Neuro: Present alert, awake and oriented x 3 Extremities: Present normal inspection; Absent clubbing or cyanosis Psychiatric: Present normal affect and cooperative Assessment and Plan *Assessment and plan (1) Right lower lobe pneumonia: Status: Acute Category: Medical Code(s): J18.9 - Pneumonia, unspecified organism (2) Acute respiratory failure with hypoxemia: Status: Acute Category: Medical Code(s): J96.01 - Acute respiratory failure with hypoxia (3) Unresolved pneumonia: Status: Acute Category: Medical Code(s): J18.9 - Pneumonia, unspecified organism (4) MRSA pneumonia: Status: Acute Category: Medical Code(s): J15.212 - Pneumonia due to Methicillin resistant Staphylococcus aureus Plan Ms. Kruse is a 64-year-old female with reported history of COPD hypertension CAD chronic hyponatremia recently discharged from the hospital for right lobar pneumonia on Augmentin presented with worsening respiratory distress found be hypotensive needing vasopressor support and pulmonary was called for further evaluation and management. Patient during her recent admission found to be having the right lower lobe dense consolidative changes, initiated on ceftriaxone and azithromycin on admission, discharged home on Augmentin. Current smoker greater than 30 PPD. At baseline not using oxygen supplementation during the daytime until most recent discharge. Prescribed nocturnal oxygen supplementation however has not been compliant. Chest x-ray from this morning continue to show right lower lobe airspace disease that appeared to be improved on recent admission. CTA upon admission evidence of pulmonary embolism. Continued symptoms of right lower lobe consolidative changes. No sputum cultures available from recent admission. Mild neutrophilic predominant leukocytosis. Comprehensive respiratory viral PCR panel negative On this admission was initiated on vancomycin and cefepime. On examination patient was on BiPAP therapy. Weaned to nasal cannula with saturations maintained at 90% and above. Bilateral rhonchorous breath sounds. Hemodynamically stable, off pressors. Repeat CT chest reviewed, worsening right lower lobe consolidative changes and a small right effusion. Sputum Cultures MRSA on vancomycin, changed to Linezolid Interval Update: Afebrile. Hemodynamically stable. No evidence of leukocytosis. Continue to receive linezolid. Repeat sputum cultures now growing staph RES on stenotrophomonas. Intermittently needing high flow nasal cannula last 3 to 4 days. ABG while needing high flow nasal cannula yesterday showed hypercarbic respiratory failure needing BiPAP therapy with improved saturations and respiratory distress. Attempted to wean nasal cannula and decline in her oxygen saturations. Chest x-ray from this morning slight improvement in the noted right lower lobe infiltrates are concerning for new right middle lobe airspace disease. Also concerning for increased vascular congestion. Plan: Proceed with bronchoscopy transbronchial biopsy. Risk and benefits of patient explained including the possible need for mechanical ventilator support postprocedure. Continue BiPAP therapy to maintain O2 saturation goal of 90% and above DuoNebs every 4 hours along with Pulmicort every 12 scheduled Continue Linezolid for MRSA pneumonia to complete a 14 day course. Initiate Bactrim DS twice daily for stenotrophomonas pneumonia along with continuation of her linezolid pending bronchoscopy result # The CT scan on still concerning for nodular opacities in the right lower lobe along with lymphadenopathy though likely from infectious etiology at this point of time. Will follow after antibiotic treatment completion with repeat imaging as an outpatient basis. Will also follow-up with the bronchoscopy results
[2025-01-01] MEDS: KCl 10mEq/100ml 100 ML 100 MEQ IV ×6 (10:30→23:19)
--- NOTE | 2025-01-01 11:40 | PC.NURSE ---
Addendum entered by Fadumo Ricks RN 01/01/25 11:41: OR staff verbalizes that they will obtain consent from the patient for procedure Original Note: pt leaving floor with OR staff at this time
--- NOTE | 2025-01-01 12:12 | EXP.ANES.CKL ---
[facility] Disclaimer: The information contained in this section may have been updated after the patient was seen, as this information can be updated by other users. Medical History (Updated 12/31/24 @ 17:46 by Yosvany Huber MD) MRSA pneumonia Unresolved pneumonia Pseudomonas pneumonia Acute respiratory failure with hypoxemia Encounter for screening for malignant neoplasm of lung in current smoker with 30 pack year history or greater Pleural thickening Lung nodule Tobacco abuse disorder Tobacco abuse counseling COPD (chronic obstructive pulmonary disease) Smoking greater than 30 pack years Dyspnea on exertion Surgical History Previous back surgery Family History Other No significant family history Social History (Updated 12/25/24 @ 18:18 by Anatoly Bennett RN) Smoking Status: Current every day smoker tobacco type: cigarettes packs per day: 3 alcohol intake: never substance use type: denies use current occupational status: disabled Travel in the last 8 weeks: None household members: significant other housing: house caffeine: Yes [facility] Anesthesia Checklist Patient Identification Patient Identification: Arm Band Structural Data Admitted From: Inpatient Planned Operative Procedure/s: Bronchoscopy with Biopsy Consent for Planned Operative Procedure(s) Verified: Yes Verified Documents: Surgical Consent and History and Physical NPO Status Verified Time NPO: 00:00 Additional verifications Anesthesia Reactions: No Airway Assessment Mallampati Score:: Class II C-Spine Mobility Assessed: Yes TMJ Mobility Assessed: Yes Dentition: Edentulous Neurological Assessment Level of Consciousness: Awake, Alert and Appropriate Anesthesia Plan Anesthesia Risk discussed: Yes Anesthesia Plan: Verified ASA Class: IV Anesthesia Type: General
[2025-01-01 13:12] LABS: Adrenocorticotropic Hormone 9.1 pg/mL (7.2-63.3)
--- NOTE | 2025-01-01 13:37 | XR_ITS ---
FINAL REPORT CLINICAL HISTORY: BRONCH IN OR 1.4 Min 13.02 mGy FINDINGS: FLUOROSCOPY LESS THAN 1 HOUR HISTORY: Fluoroscopy guidance. FINDINGS: Fluoroscopic guidance was provided for bronchoscopy in the OR. A single spot film was obtained. A total of 1.4 minutes of fluoroscopy time were used. DAP: 13.02 mGy IMPRESSION: As above. Reviewed, Interpreted and Dictated by Anais Raygoza MD Transcribed by Kelsey Bejarano Authenticated and [facility]
--- NOTE | 2025-01-01 14:20 | PC.NURSE ---
pt arrived to ICU from surgery intubated with a 8.0 ett that is currently at 24cm at the teeth. pt has bilateral breath sounds and diminished lung sounds. pt is currently responding to loud voices. this nurse called hospitalist for sedation orders. verbal orders given for propofol and fentanyl drips
--- NOTE | 2025-01-01 14:20 | PC.NURSE ---
Verbal order received from Dr. Huber to transfer patient to ICU status at this time.
--- NOTE | 2025-01-01 14:30 | PC.NURSE ---
received report from MONO Callahan post op and MONO Merrill from med surg. Rosey reported the patient needed a one hour post h/h at 1434. order placed. When i reviewed the orders it appeared as though the patient was supposed to receive 2 units of blood and only got one unit. When i called blood bank they stated that they ended up having to dump a unit so the patient was downgraded to one unit.
--- NOTE | 2025-01-01 14:30 | SUR.PHASEI ---
report to Alphonso RN. PT to have 1h post h/h at 1434. Pt under [facility]an heart
[2025-01-01] MEDS: propofoL 100 ML 1.56 MG IV (14:35)
[2025-01-01 14:38] LABS: ABG Base Excess 5.3 mmol/L (-2.4-2.3); ABG HCO3 29.5 mmhg (22.0-26.0); ABG Oxygen Saturation 89 % (90-100); ABG PCO2 44.4 mmhg (35.0-45.0); ABG PH 7.44 mmol/L (7.35-7.45); ABG PO2 52.6 mmhg (80-100); ABG TCO2 30.8 mmhg (23-27)
[2025-01-01 14:43] LABS: Lactate Arterial 0.8 mmol/L (0.4-2.0); Oxygen 100 %; PEEP 5; Tidal Volume 420; Vent Rate 22
[2025-01-01] MEDS: FENTANYL CITRATE/PF 1,000 MCG in 0.9 % SODIUM CHLORIDE 80 ML 2.5 MCG IV (14:48)
--- NOTE | 2025-01-01 14:48 | PC.NURSE ---
Pt TEMPERATURE WAS 94.4 RECTALLY @1420. ELLA HUGGER IN PLACED ON pt DUE TO ELLA HUGGER PROTOCOL. TEMPERATURE WILL BE RECHECKED HOURLY.
--- NOTE | 2025-01-01 14:53 | P.PNANES_ITS ---
[facility] Anesthesia Record Part II Anesthesia Record Part II Discharge Time: 14:35 Destination: Intensive Care Unit PACU nurse assessment reviewed?: Yes Patient Condition:: Good Anesthesia Complications:: None Swallowing reflex intact?: No Airway Patency: Patent Cyanosis?: No Blood Pressure: 106/50 SaO2: 93 Respiratory Rate: 22 Pulse Rate: 74 Temperature: 94.4 F Mental Status: Unresponsive (Pt Sedated with Mechanical Ventilation) Pain level:: 0 Nausea and/or vomitting:: None Intake, IV Amount: 0 Hydration: Adequate
[2025-01-01 15:12] LABS: Hemoglobin 7.2 g/dL (12.2-16.2)
--- NOTE | 2025-01-01 15:38 | EXP.BRONCH.N ---
Procedure: Date: 01/01/25 Patient Date of :: 1960 Procedure Performed:: Bronchoscopy with airway examination bronchoalveolar lavage transbronchial and endobronchial lung biopsy Indications:: Nonresolving pneumonia Performing Provider:: Melvin Aponte MD Referring Provider:: Dr. Huber Sedation:: General anesthesia Procedure:: Bronchoscopy airway examination, bronchoalveolar lavage and transbronchial lung biopsy: A clean DIAGNOSTIC bronchoscopy was advanced through the ET tube and airways were examined up to subsegmental bronchi. Copious amount of thick mucoid secretions were present throughout her bilateral airways suction with significant difficulty. Airways in the left lung feng appear normal after secretions were suctioned completely. During this process patient noted to have spontaneous bleeding episode from the right lower lobe bronchi which was stopped after instillation of cold saline. Bronchoalveolar lavage was performed in the LEFT LOWER LOBE with instillation of 60 cc normal saline with return of 30 cc back. BAL fluid was sent for cell count and differential along with bacterial fungal and AFB stain and cultures. BAL was also performed in the right lower lobe with instillation of 60 cc of normal saline with return of 30 cc blood-tinged fluid. Patient experienced bleeding while performing this bronchoalveolar lavage. Cold saline was instilled with resolution of the bleeding. At this point of time diagnostic bronchoscopy was exchanged therapeutic bronchoscopy in anticipation. No further bleeding was noted. The concerning endobronchial lesions were also noted in the right lower lobe bronchi. A total of 4 endobronchial biopsies was performed were sent in formalin for cytopathologic examination. Transbronchial biopsy was also performed in the RIGHT LOWER LOBE with a total of 7 biopsies performed, 5 biopsy specimens were sent in formalin for cytopathologic examination. The other 2 biopsy samples, were sent one each in two separate normal saline specimen cups for bacterial fungal and AFB stain cultures. Special request was also made for the pathologist to evaluate for AFB and fungal organisms on the cytopathologic examination. Patient tolerated the procedure with no immediate acute complications. We will follow the patient in pulmonary clinic in 7 to 10 days. Findings:: Please see the procedure note Recommendations:: Postoperative bronchoscopy instructions Please see the progress note from today Complications:: No acute immediate complication Estimated blood obtained (mL): 15
--- NOTE | 2025-01-01 15:43 | XR_ITS ---
PROCEDURE INFORMATION: Exam: XR Chest Exam date and time: 01/01/2025 4:07 PM Age: 64 years old Clinical indication: Other: Post biopsy TECHNIQUE: Imaging protocol: Radiologic exam of the chest. Views: 1 view. COMPARISON: CR XR CHEST AP 01/01/2025 1:30 PM FINDINGS: Tubes, catheters and devices: Endotracheal tube within the takeoff of the right mainstem bronchus. Airway: Airways are patent. Lungs: Basal ground-glass consolidations, worse on the right. Bilateral perihilar vascular congestion and interstitial prominence which also extends to the lung bases, along with bronchial cuffing. Bilateral apical capping/scarring. Pleural spaces: Small left and moderate right bilateral pleural effusions. No large pneumothorax. Heart/Mediastinum: Moderate cardiomegaly. Vasculature: Calcified aortic knob. Bones/joints: Reverse right shoulder arthroplasty without definitive complications. Partially visualized lower thoracolumbar spine fixation hardware without discrete complications. IMPRESSION: 1. Endotracheal tube within the takeoff of the right mainstem bronchus. Consider retracting 5 cm. 2. Small left and moderate right bilateral pleural effusions. 3. Basal ground-glass consolidations, worse on the right. Suspicious for atelectasis and/or pneumonia or pulmonary edema. 4. Bilateral perihilar vascular congestion and interstitial prominence which also extends to the lung bases, along with bronchial cuffing. [id number] pulmonary edema is most concerning.
--- NOTE | 2025-01-01 17:17 | XR_ITS ---
PROCEDURE INFORMATION: Exam: XR Chest Exam date and time: 01/01/2025 5:15 PM Age: 64 years old Clinical indication: Device placement; Ett placement (vent status); Additional info: Post ett placement adjustment TECHNIQUE: Imaging protocol: Radiologic exam of the chest. Views: 1 view. COMPARISON: CR XR CHEST PORTABLE 01/01/2025 4:07 PM FINDINGS: Tubes, catheters and devices: An endotracheal tube is present, distal tip approximately 3.5 cm above the anton. Lungs: Mild mixed interstitial and airspace opacities in the perihilar and bibasilar regions are not dramatically changed given differences in imaging technique. More dense opacification in the right lower lobe and inferomedial left lower lobe are stable. Pleural spaces: Small to moderate bilateral pleural effusions are stable. Mild biapical pleural thickening/effusion is stable. Negative for pneumothorax. Heart/Mediastinum: Cardiac silhouette is within range of normal and stable. There is pulmonary vascular equalization, as before. Bones/joints: There is no evidence of acute fracture. Postoperative right shoulder arthroplasty is incompletely visualized. Visualized portions appear unchanged. Postoperative spinal fixation hardware involving the thoracolumbar junction is incompletely visualized. Visualized portions appear unchanged. IMPRESSION: 1. Repositioning of endotracheal tube, now approximately 3.5 cm above the anton. 2. Otherwise, stable exam without significant changes.
--- NOTE | 2025-01-01 17:20 | P.PN_ITS ---
Subjective *Date: 01/01/25 *Time: 23:45 Interval history: Patient had worsening respiratory status overnight. Necessitated escalation to BiPAP. Taken for bronchoscopy this morning. Due to significant secretions, increased respiratory need, bleeding after biopsy of endobronchial lesion, patient remained intubated. Transition to ICU. Appears ill today. Afebrile. Appears quite weak. Sodium showing slight improvement. No nausea or vomiting. Family at bedside and updated of plan. Medical Exam Vital signs and Labs for Last 24 Hours: Vital Signs Temp Pulse Pulse Pulse Resp BP BP 01/01/25 15:28 95.0 F L 01/01/25 15:00 01/01/25 14:55 22 01/01/25 14:35 74 22 106/50 L 01/01/25 14:25 76 22 130/63 01/01/25 14:20 94.4 F L 01/01/25 14:20 01/01/25 14:18 82 01/01/25 14:18 80 01/01/25 14:15 81 22 132/62 01/01/25 14:09 22 01/01/25 14:05 94.4 F L 87 22 124/62 01/01/25 13:34 97.8 F 95 H 22 104/55 L 01/01/25 13:30 98.0 F 91 H 22 102/52 L 01/01/25 13:15 98.0 F 97 H 22 115/60 01/01/25 13:10 97.8 F 96 H 22 80/47 L 01/01/25 13:05 98.2 F 94 H 22 85/49 L 01/01/25 13:00 98.1 F 92 H 22 94/50 L 01/01/25 12:59 98.0 F 93 H 22 116/65 01/01/25 12:02 97.8 F 112 H 24 111/46 L 01/01/25 11:15 94 H 01/01/25 11:15 92 H 01/01/25 11:15 01/01/25 11:00 01/01/25 10:00 83 30 H 103/52 L 01/01/25 09:00 01/01/25 08:00 80 01/01/25 08:00 89 01/01/25 08:00 84 19 139/67 01/01/25 06:57 01/01/25 06:24 80 01/01/25 06:24 81 01/01/25 06:24 01/01/25 06:00 70 20 117/60 01/01/25 05:00 01/01/25 04:00 96.3 F L 01/01/25 04:00 80 16 138/60 01/01/25 04:00 70 01/01/25 03:00 01/01/25 02:22 01/01/25 02:00 01/01/25 02:00 73 19 110/53 L 01/01/25 01:00 01/01/25 00:58 01/01/25 00:39 96.4 F L 01/01/25 00:02 78 01/01/25 00:02 74 01/01/25 00:00 75 18 122/75 01/01/25 00:00 70 01/01/25 00:00 12/31/24 23:00 12/31/24 22:00 12/31/24 22:00 85 17 114/63 12/31/24 21:00 12/31/24 20:20 12/31/24 20:00 95 H 17 109/55 L 12/31/24 20:00 12/31/24 20:00 90 12/31/24 19:55 97.5 F L 12/31/24 18:46 12/31/24 18:36 12/31/24 18:26 108 H 12/31/24 18:26 107 H 12/31/24 18:26 12/31/24 18:13 97.7 F Pulse Ox O2 Del Method O2 Flow Rate FiO2 01/01/25 15:28 01/01/25 15:00 Mechanical Ventilation 01/01/25 14:55 01/01/25 14:35 93 L Mechanical Ventilation 01/01/25 14:25 95 Mechanical Ventilation 01/01/25 14:20 01/01/25 14:20 94 L Mechanical Ventilation 100 01/01/25 14:18 01/01/25 14:18 01/01/25 14:15 95 Mechanical Ventilation 01/01/25 14:09 94 L 100 01/01/25 14:05 94 L Mechanical Ventilation 01/01/25 13:34 96 01/01/25 13:30 95 01/01/25 13:15 96 01/01/25 13:10 86 L 01/01/25 13:05 87 L 01/01/25 13:00 89 L 01/01/25 12:59 90 L 01/01/25 12:02 85 L Non-Rebreather 15 01/01/25 11:15 01/01/25 11:15 01/01/25 11:15 40 01/01/25 11:00 BiPAP 01/01/25 10:00 91 L BiPAP 01/01/25 09:00 BiPAP 01/01/25 08:00 01/01/25 08:00 90 L BiPAP 01/01/25 08:00 97 BiPAP 01/01/25 06:57 BiPAP 01/01/25 06:24 01/01/25 06:24 01/01/25 06:24 50 01/01/25 06:00 97 BiPAP 01/01/25 05:00 BiPAP 01/01/25 04:00 01/01/25 04:00 96 BiPAP 01/01/25 04:00 01/01/25 03:00 BiPAP 01/01/25 02:22 50 01/01/25 02:00 99 BiPAP 01/01/25 02:00 100 BiPAP 01/01/25 01:00 BiPAP 01/01/25 00:58 60 01/01/25 00:39 01/01/25 00:02 01/01/25 00:02 01/01/25 00:00 100 BiPAP 01/01/25 00:00 01/01/25 00:00 100 BiPAP 75 12/31/24 23:00 BiPAP 12/31/24 22:00 75 12/31/24 22:00 100 BiPAP 12/31/24 21:00 BiPAP 12/31/24 20:20 75 12/31/24 20:00 100 BiPAP 12/31/24 20:00 100 BiPAP 12/31/24 20:00 12/31/24 19:55 12/31/24 18:46 92 L Vapotherm 40 40 12/31/24 18:36 Vapotherm 12/31/24 18:26 12/31/24 18:26 12/31/24 18:26 100 Vapotherm 40 60 12/31/24 18:13 Intake and Output 01/01/25 01/01/2525 07:59 15:59 23:59 Intake Total 250 / 794.290 544.290 / 794.290 Output Total 550 / 550 Balance -300 / 244.290 544.290 / 244.290 Intake: Intake, Total IV Amount 250 / 544.290 294.290 / 544.290 Linezolid 600 mg In 300 ml @ 290 / 290 300 mls/hr IV Q12H [facility] Rx#: [id number] Sodium Chloride 3 % 500 ml @ 25 250 / 250 mls/hr IV .Q20H [facility] Rx#: [id number] Intake (Blood Product) Amt 250 / 250 Red Blood Cells Unit 250 / 250 [id number] Output: Output, Urine Amount 550 / 550 Other: Number of Unmeasured Voids 0 0 Weight 51.982 kg Patient Weight 01/01/25 23:59 Weight 51.982 kg Laboratory Results - last 24 hr 12/31/24 06:58: ACTH 9.1 12/31/24 19:27: Specimen Source Right radial, O2 % Vapotherm 40l/75%, ABG pH 7.30 L, ABG pCO2 58.8 H, ABG pO2 52.0 L, ABG HCO3 28.2 H, ABG Total CO2 30.0 H, ABG O2 Saturation 80 L*, ABG Base Excess 1.7, Emigdio Test Acceptable, ABG Lactate 1.2 12/31/24 22:17: Sodium 123 L, Potassium 3.4 L, Chloride 85 L, Carbon Dioxide 34 H, Anion Gap 7.4, BUN 10, Creatinine 0.50 L, Estimated Creat Clear 48, Estimated GFR 124, Est GFR ( Amer) 150 D, Glucose 102 H D, Calcium 7.4 L 01/01/25 06:05: ESR > 140 H, Magnesium 2.1 D, C-Reactive Protein 135.9 H 01/01/25 08:48: WBC 5.3, RBC 2.63 L, Hgb 6.9 L, Hct 21.5 L, MCV 81.7, MCH 26.2 L , MCHC 32.1, RDW 17.8 H, Plt Count 122 L, MPV 10.0, Neut % (Auto) 88.9 H, Lymph % (Auto) 4.8 L, [place] % (Auto) 5.1, Eos % (Auto) 0.2, Baso % (Auto) 0.2, Neut # (Auto) 4.7, Lymph # (Auto) 0.3 L, [place] # (Auto) 0.3, Eos # (Auto) 0.0, Baso # (Auto) 0.0, Sodium 126 L, Potassium 3.3 L, Chloride 89 L, Carbon Dioxide 35 H, Anion Gap 5.3, BUN 7 D, Creatinine 0.50 L, Estimated Creat Clear 46, Estimated GFR 124, Est GFR ( Amer) 150, Glucose 105 H, Calcium 7.8 L, Magnesium 2.1, Total Bilirubin < 0.1 L, AST 20, ALT 15, Alkaline Phosphatase 88, Total Pr otein 5.4 L, Albumin 2.4 L, Globulin 3.0, Albumin/Globulin Ratio 0.8 L 01/01/25 08:50: Blood Type Confirm O Positive 01/01/25 10:25: Blood Type O Positive, Antibody Screen Negative, Crossmatch (AHG) See Detail 01/01/25 14:35: Specimen Source r brachial, O2 % 100, ABG pH 7.44, ABG pCO2 44.4, ABG pO2 52.6 L, ABG HCO3 29.5 H, ABG Total CO2 30.8 H, ABG O2 Saturation 89 L, ABG Base Excess 5.3 H, ABG Lactate 0.8, Vent Rate 22, Tidal Volume 420, PEEP 5 01/01/25 15:05: Hgb 7.2 L, Hct 22.0 L I & O for Labs for Last 24 Hours: Intake & Output 12/29/24 12/30/24 12/31/24 01/01/25 23:59 23:59 23:59 23:59 Intake Total 1140 / 1440 2231 / 2531 2196 / 2196 794.290 / 794.290 Output Total 2049 / 2049 650 / 650 250 / 250 550 / 550 Balance -910 / -610 1581 / 1881 1946 / 1946 244.290 / 244.290 Weight 49.578 kg 51.8 kg 54.613 kg 51.982 kg Microbiology Reports for the Last 24 Hours: Microbiology 12/29/24 16:18 Sputum - Expectorated Sputum Gram Stain - Final 12/29/24 16:18 Sputum - Expectorated Sputum Sputum Culture - Final Staphylococcus aureus Stenotrophomonas species Constitutional: Present moderate distress, cachectic, chronically ill appearing and cooperative Head: Present atraumatic and normocephalic ENT: Present normal exam Respiratory: Present accessory muscle use, prolonged expiratory phase, wheezes, crackles and diminished air movement; Absent rhonchi Cardiac: Present Reg Rate and Rhythm GI: Present soft and normal bowel sounds; Absent distention or tenderness Extremities: Present normal inspection and full ROM Skin: Present intact; Absent erythema Neuro: Present Grossly Intact, alert, awake, oriented x 3 and moves all extremities Assessment and Plan *Assessment and plan (1) Right lower lobe pneumonia: Status: Acute Category: Medical Code(s): J18.9 - Pneumonia, unspecified organism (2) Acute urinary retention: Status: Acute Category: Medical Code(s): R33.8 - Other retention of urine (3) MRSA pneumonia: Status: Acute Category: Medical Code(s): J15.212 - Pneumonia due to Methicillin resistant Staphylococcus aureus (4) Acute respiratory failure with hypoxemia: Status: Acute Category: Medical Code(s): J96.01 - Acute respiratory failure with hypoxia (5) Severe protein-calorie malnutrition: Status: Acute Category: Medical Code(s): E43 - Unspecified severe protein-calorie malnutrition (6) SIADH (syndrome of inappropriate ADH production): Status: Acute Category: Medical Code(s): E22.2 - Syndrome of inappropriate secretion of antidiuretic hormone (7) Hyponatremia: Status: Acute Category: Medical Code(s): E87.1 - Hypo-osmolality and hyponatremia Plan Marisa Kruse is a 64-year-old female with a medical history of COPD, hypertension, extensive smoking history, chronic hyponatremia, CAD presents with progressive functional decline, shortness of breath, productive cough. She was recently discharged about a week ago in stable condition after treatment for right lobar pneumonia. Patient states she did well for a few days at home and finished her course of Augmentin, however over the past few days she became increasingly short of breath, productive cough and profound weakness. She denies chest pain, abdominal pain. Patient at this time is not the best historian given her lethargy workup in the ED significant for WBC 8.1, sodium 125, BNP 2070. CTA revealed extensive right lower lobe pneumonia, hilar adenopathy. CT abdomen/pelvis suggestive of fluid-filled bowels, and severely distended urinary bladder. Worsening respiratory failure overnight. Necessitating BiPAP. Taken for bronchoscopy. Remained intubated. Transitioned to ICU on ventilator. Condition critical, prognosis guarded. Problems addressed as follows: #Acute hypoxic respiratory failure #MRSA multifocal pneumonia #Hilar adenopathy ? Initial CTA revealed right lobar pneumonia. No leukocytosis or signs of sepsis at this time. ? CTA also reveals hilar adenopathy and spoke with pulmonology, likely reactive at this time. However, worth investigating given chronic hyponatremia in 120s, possibly SIADH pending labs. ? Patient taken for bronchoscopy today. Discussed case with pulmonology, due to secretions and respiratory compromise along with bleeding from biopsy, decision made to keep patient intubated. Transition to ICU on mechanical ventilator support. Will continue DuoNebs every 4 hours along with Pulmicort every 12 hours. -Sputum sample growing stenotrophomonas, will broaden antibiotic coverage with Bactrim double strength twice daily. Continue linezolid for MRSA. -Biopsy of endobronchial lesion obtained. Will consider repeat bronchoscopy in the morning -White count 5.3, hemoglobin 6.9. Repeat CBC, CMP, magnesium ordered for the morning Anemia: Given hemoglobin dropped 6.9, will transfuse 2 units today. Transfusion threshold hemoglobin less than 7. #Right heart failure #Elevated BNP ? Initial BNP 2000, with 3+ pitting edema. Likely further exacerbated by protein/nutritional deficiencies. ? ECHO reveals moderate RV dilation, mildly reduced RV function. RVSP 50 to 55 mmHg. Likely from advanced COPD, probable pulmonary hypertension. ? Hypervolemia resolved with Bumex diuresis, net negative during admission ? Creatinine 0.5, BUN 7 ? Monitor renal function, electrolytes. Follow-up CMP in the morning # Acute on chronic hyponatremia ? Sodium 125 on admission. Sodium improved to 126. Repeat sodium level every 12 hours. Chloride 89. Continue to fluid restrict less than 1500 cc a day. - Consistent with SIADH based on labs earlier this month with urine sodium in the 50s. Inappropriately elevated. - Continue sodium chloride replacement with 1000 mg twice daily p.o. #COPD exacerbation ? Current smoker. COPD seems slightly exacerbated today. ? Pulmonology started DuoNebs, Pulmicort. Hold Trelegy. #Cognitive decline ? Per patient's brother, patient has had cognitive decline since Thanksgiving. He believes that patient is not adequately taking care of herself at home, does not always remember to take her medications, does have boyfriend but he is not around every day. ? Patient is waxing and waning in confusion during hospitalization. Could be hospital-acquired delirium with underlying dementia. ? There is some concern for dementia given progressive cognitive changes. TFTs, B12, folate normal. ? CT head 12/18/2024 shows mild atrophy. ? Started IV Haldol 2 mg as needed for agitation. #Physical deconditioning #Functional decline #Severe protein calorie malnutrition ? PT/OT consulted, recommended home with home health. ? Will provide high-protein shakes with meals. ? TFTs, B12, folate normal. Follow-up vitamin D. #Urinary retention ? Severely distended bladder on initial CT, s/p Ramos insertion with significant output. ?Ramos replaced yesterday due to failure of spontaneous voiding trial. Will refer to urology as an outpatient #Hypertension: Hold home lisinopril today. #GERD: Resume home PPI. Full code DVT prophylaxis: Lovenox 40 mg ICU/Critical care attestation This patient is critically ill with 35 minutes devoted solely to this patient managing life/organ supporting interventions that required physician assessment. This includes time spent making adjustments in ventilator settings, IV fluid administration, titration of pressors, adjustments of medications, discussion of patient with consultants and other care providers as well as updating patient and/or family (if patient by virtue of his/her condition is unable to pa rticipate in decision making). This does not include time spent performing separately billed procedures. Time is not concurrent with that of other providers.
[2025-01-01 18:06] LABS: Chloride 93 mmol/L (98-107); Potassium 4.2 mmoL/L (3.5-5.1); Sodium 125 mmol/L (136-145)
[2025-01-01 18:09] LABS: Anion Gap 6.2 mEq/L (5-15); Blood Urea Nitrogen 7 mg/dl (7-17); Calcium 7.5 mg/dl (8.4-10.2); Carbon Dioxide 30 mmol/L (22.0-30.0); Creatinine Clearance Estimated 46 mL/min (50-200); Estimated Glomerular Filt Rate 124 ml/min (>60); GFR (African American) 150 ML/MIN (>60); Glucose 78 mg/dl (74-100)
[2025-01-01] MEDS: SULFAMETHOXAZOLE/TRIMETHOPRIM 10 ML in DEXTROSE 5 % IN WATER 250 ML 173.333 ML IV (18:32)
[2025-01-01] MEDS: propofoL 100 ML 9.36 MG IV (20:03)
[2025-01-02] VITALS (53 sets, daily range): BP systolic 93–135; BP diastolic 49–76; PULSE 76–98; RESP 12–23; TEMP 36.6–37.6; O2SAT 89–100; BMI 190750.5
[2025-01-02] MEDS: ACETAMINOPHEN 650MG SUPPOSITORY 650 MG RC (00:19)
[2025-01-02] MEDS: SULFAMETHOXAZOLE/TRIMETHOPRIM 10 ML in DEXTROSE 5 % IN WATER 250 ML 173.333 ML IV ×2 (02:00→14:01)
[2025-01-02] MEDS: IPRATROPIUM/ALBUTEROL 3 ML NEB IH ×6 (02:10→22:03)
[2025-01-02 06:12] LABS: C-Reactive Protein 156.1 mg/L (0-4)
[2025-01-02] MEDS: BUDESONIDE 0.5MG/2ML NEB 0.5 MG IH ×2 (06:33→18:11)
[2025-01-02 06:40] LABS: Erythrocyte Sedimentation Rate > 140 mm/hr (0-30)
[2025-01-02 08:32] LABS: Basophils % 0.3 % (0.1-2.0); Eosinophils % 0.2 % (0.1-12.0); Hematocrit 23.7 % (37.0-47.0); Hemoglobin 7.8 g/dL (12.2-16.2); Lymphocytes # 0.5 K/mm3 (0.7-4.5); Mean Corpuscular HGB Conc 32.9 g/dL (31.8-35.4); Mean Corpuscular Hemoglobin 26.7 pg (27.0-31.2); Mean Corpuscular Volume 81.2 fl (81-99); Mean Platelet Volume 9.7 fl (7.4-10.4); Monocytes # 0.4 K/mm3 (0.1-1.0); Monocytes % 7.1 % (1.7-9.3); Neutrophils % 83.9 % (37.0-80.0); Platelet Count 122 K/mm3 (142-424); Red Blood Count 2.92 M/mm3 (4.20-5.40); Red Cell Distribution Width 17.2 % (11.5-17.5); White Blood Count 5.9 K/mm3 (4.8-10.8)
[2025-01-02 08:46] LABS: Albumin Level 2.2 g/dl (3.5-5.0); Chloride 93 mmol/L (98-107)
--- NOTE | 2025-01-02 08:46 | PC.NURSE ---
Call received from received orders to call OR to schedule repeat Bronchoscopy at 09:30 this AM. Call made to MONO Kinsey in OR to schedule.
[2025-01-02 08:47] LABS: Potassium 4.6 mmoL/L (3.5-5.1); Sodium 124 mmol/L (136-145)
[2025-01-02 08:49] LABS: Alanine Aminotransferase 14 U/L (12-78); Albumin/Globulin Ratio 0.7 (1.1-1.8); Alkaline Phosphatase 90 U/L (38-126); Anion Gap 5.6 mEq/L (5-15); Aspartate Amino Transferase 19 U/L (14-36); Blood Urea Nitrogen 9 mg/dl (7-17); Carbon Dioxide 30 mmol/L (22.0-30.0); Creatinine Clearance Estimated 46 mL/min (50-200); Estimated Glomerular Filt Rate 100 ml/min (>60); GFR (African American) 121 ML/MIN (>60); Glucose 81 mg/dl (74-100); Total Protein,Serum 5.2 g/dl (6.3-8.2)
[2025-01-02 08:50] LABS: Calcium 7.7 mg/dl (8.4-10.2); Magnesium 1.9 mg/dl (1.6-2.3)
[2025-01-02 09:02] LABS: Bilirubin,Total < 0.1 mg/dl (0.2-1.3)
[2025-01-02] MEDS: ENOXAPARIN 40MG/0.4ML SYRINGE 40 MG SUBCUT (09:11)
[2025-01-02] MEDS: LINEZOLID 600 MG/300 ML IV.SOLN 300 MG IV ×2 (09:11→20:08)
--- NOTE | 2025-01-02 09:33 | P.PN_ITS ---
Subjective *Date: 01/02/25 *Time: 13:14 Interval history: No acute respiratory vents overnight. Pulmonology Exam Inpatient Vital signs and Labs for Last 24 Hours: Temp Pulse Resp BP Pulse Ox O2 Del Method O2 Flow Rate 99.6 F 85 22 104/55 L 99 Mechanical Ventilation 15 01/02/25 08:00 01/02/25 08:00 01/02/25 08:00 01/02/25 08:00 01/02/25 08:58 01/02/25 09:00 01/01/25 12:02 FiO2 50 01/02/25 08:58 Laboratory Results - last 24 hr 12/31/24 06:58: ACTH 9.1 01/01/25 08:50: Blood Type Confirm O Positive 01/01/25 10:25: Blood Type O Positive, Antibody Screen Negative, Crossmatch (AHG) See Detail 01/01/25 14:35: Specimen Source r brachial, O2 % 100, ABG pH 7.44, ABG pCO2 44.4, ABG pO2 52.6 L, ABG HCO3 29.5 H, ABG Total CO2 30.8 H, ABG O2 Saturation 89 L, ABG Base Excess 5.3 H, ABG Lactate 0.8, Vent Rate 22, Tidal Volume 420, PEEP 5 01/01/25 15:05: Hgb 7.2 L, Hct 22.0 L 01/01/25 17:46: Sodium 125 L, Potassium 4.2 D, Chloride 93 L, Carbon Dioxide 30, Anion Gap 6.2, BUN 7, Creatinine 0.50 L, Estimated Creat Clear 46, Estimated GFR 124, Est GFR ( Amer) 150, Glucose 78 D, Calcium 7.5 L 01/02/25 05:26: ESR > 140 H, C-Reactive Protein 156.1 H 01/02/25 08:25: WBC 5.9, RBC 2.92 L, Hgb 7.8 L, Hct 23.7 L, MCV 81.2, MCH 26.7 L , MCHC 32.9, RDW 17.2, Plt Count 122 L, MPV 9.7, Neut % (Auto) 83.9 H, Lymph % (Auto) 8.0 L, [place] % (Auto) 7.1, Eos % (Auto) 0.2, Baso % (Auto) 0.3, Neut # (Auto) 5.0, Lymph # (Auto) 0.5 L, [place] # (Auto) 0.4, Eos # (Auto) 0.0, Baso # (Auto) 0.0, Sodium 124 L, Potassium 4.6, Chloride 93 L, Carbon Dioxide 30, Anion Gap 5.6, BUN 9 D, Creatinine 0.60, Estimated Creat Clear 46, Estimated GFR 100, Est GFR ( Amer) 121, Glucose 81, Calcium 7.7 L, Magnesium 1.9, Total Bilirubin < 0.1 L, AST 19, ALT 14, Alkaline Phosphatase 90, Total Protein 5.2 L, Albumin 2.2 L, Globulin 3.0, Albumin/Globulin Ratio 0.7 L I & O for Labs for Last 24 Hours: Intake & Output 12/30/24 12/31/24 01/01/25 01/02/25 23:59 23:59 23:59 23:59 Intake Total 2231 / 2531 2196 / 2196 1386.722 / 1386.722 Output Total 650 / 650 250 / 250 1100 / 1200 400 / 400 Balance 1581 / 1881 1946 / 1946 286.722 / 186.722 -400 / -400 Weight 114 lb 3.2 oz 120 lb 6.4 oz 114 lb 9.6 oz 114 lb 10.246 oz Microbiology Reports for the Last 24 Hours: Microbiology 01/01/25 14:20 Sputum - Endotracheal Wash Gram Stain - Final 12/29/24 16:18 Sputum - Expectorated Sputum Gram Stain - Final 12/29/24 16:18 Sputum - Expectorated Sputum Sputum Culture - Final Staphylococcus aureus Stenotrophomonas species Constitutional: Present severe distress Comment:: Intubated and Sedated Head: Present normocephalic and atraumatic Neck: Present normal inspection and trachea midline Respiratory: Present patient mechanically ventilated, prolonged expiratory phase and rhonchi; Absent wheezes, diminished air movement or able to speak in complete sentences Cardiac: Present S1/S2 and Tachycardia GI: Present soft; Absent distention or tenderness Skin: Present intact; Absent cyanosis Neuro: Absent alert, awake or oriented x 3 Comment:: Intubated and sedated Extremities: Present normal inspection; Absent clubbing or cyanosis Psychiatric: Present unable to assess Assessment and Plan *Assessment and plan (1) Right lower lobe pneumonia: Status: Acute Category: Medical Code(s): J18.9 - Pneumonia, unspecified organism (2) Acute respiratory failure with hypoxemia: Status: Acute Category: Medical Code(s): J96.01 - Acute respiratory failure with hypoxia (3) Unresolved pneumonia: Status: Acute Category: Medical Code(s): J18.9 - Pneumonia, unspecified organism (4) MRSA pneumonia: Status: Acute Category: Medical Code(s): J15.212 - Pneumonia due to Methicillin resistant Staphylococcus aureus Plan Ms. Kruse is a 64-year-old female with reported history of COPD hypertension CAD chronic hyponatremia recently discharged from the hospital for right lobar pneumonia on Augmentin presented with worsening respiratory distress found be hypotensive needing vasopressor support and pulmonary was called for further evaluation and management. Patient during her recent admission found to be having the right lower lobe dense consolidative changes, initiated on ceftriaxone and azithromycin on admission, discharged home on Augmentin. Current smoker greater than 30 PPD. At baseline not using oxygen supplementation during the daytime until most recent discharge. Prescribed nocturnal oxygen supplementation however has not been compliant. Chest x-ray from this morning continue to show right lower lobe airspace disease that appeared to be improved on recent admission. CTA upon admission evidence of pulmonary embolism. Continued symptoms of right lower lobe consolidative changes. No sputum cultures available from recent admission. Mild neutrophilic predominant leukocytosis. Comprehensive respiratory viral PCR panel negative On this admission was initiated on vancomycin and cefepime. On examination patient was on BiPAP therapy. Weaned to nasal cannula with saturations maintained at 90% and above. Bilateral rhonchorous breath sounds. Hemodynamically stable, off pressors. Repeat CT chest reviewed, worsening right lower lobe consolidative changes and a small right effusion. Sputum Cultures MRSA on vancomycin, changed to Linezolid Interval Update: Status post bronchoscopy with copious amount of mucoid secretions. Concerning right lower lobe endobronchial lesion status post biopsy. Remained on mechanical ventilatory support since yesterday. Continue to receive linezolid and Bactrim. Stable leukocytosis. Plan: Continue mechanical ventilatory support. Continue propofol and fentanyl for sedation. Will wean sedation to perform SBT. Chest x-ray this morning ET tube in place with no new infiltrates. Stable right effusion. Afebrile. Hemodynamically stable. Stable leukocytosis. Status post repeat bronchoscopy no evidence of active bleeding. No blood or blood clots also noted. The previously concerning right lower lobe endobronchial appeared to be not entirely present which can well be from old blood clot that was seen yesterday. Will follow with the biopsy results. Continue DuoNebs every 4 hours along with Pulmicort every 12 scheduled Continue Linezolid for MRSA pneumonia BAL cultures growing gram-positive cocci so far. Will follow with final results. Initiate Bactrim DS twice daily for stenotrophomonas pneumonia along with continuation of her linezolid pending bronchoscopy result - Continue mechanical ventilatory support - Continue AnalgoSedation with Propofol and Fentanyl with CPOT gal less than or euqal to 2 and RASS goal of to 2 (No need for deep sedation) - VAP bundle Recommend elevate head of the bed at 30 to 45 degrees Recommend oral care with chlorhexidne Recommend GI ulcer prophylaxis - Famotidine 20mg IV BID Recommend chemical DVT prophylaxis # The CT scan on still concerning for nodular opacities in the right lower lobe along with lymphadenopathy though likely from infectious etiology at this point of time. Will follow after antibiotic treatment completion with repeat imaging as an outpatient basis. Will also follow-up with the bronchoscopy results Total critical care time spent on this patient is 35 minutes managing acute hypoxic respiratory failure needing mechanical ventilation. This time spent include reviewing test results including interpreting chest x-rays, labs and arterial blood gas, optimizing the ventilator settings,formulating plan of care, discussing the plan of care with the team and the nursing staff.
--- NOTE | 2025-01-02 09:34 | XR_ITS ---
FINAL REPORT CLINICAL HISTORY: MV COMPARISON: 01/01/2025 FINDINGS: A portable view of the chest is obtained. There is no change in the endotracheal tube. The heart size is stable. Bilateral mixed interstitial and alveolar opacities and a right pleural effusion are unchanged. There has been slight improvement in a left pleural effusion. There is no pneumothorax. IMPRESSION: Improved left pleural effusion, otherwise no change. Reviewed, Interpreted and Dictated by Anais Raygoza MD Transcribed by Juliana Bowers Authenticated and [facility]
[2025-01-02] MEDS: propofoL 100 ML 9.36 MG IV (09:37)
[2025-01-02] MEDS: FENTANYL 100MCG/2ML VIAL 50 MCG IV (10:51)
--- NOTE | 2025-01-02 13:11 | EXP.BRONCH.N ---
Procedure: Date: 01/02/25 Patient Date of :: 1960 Procedure Performed:: Bronchoscopy with airway examination Indications:: Nonresolving pneumonia. Hemoptysis Performing Provider:: Melvin Aponte MD Referring Provider:: Dr. Huber Sedation:: Patient on propofol and fentanyl for sedation for mechanical ventilation but she received additional 50 mcg of IV fentanyl for the procedure Procedure:: Bronchoscopy with airway examination: A clean DIAGNOSTIC bronchoscopy was advanced through the ET tube and airways were examined up to subsegmental bronchi. Airways appeared grossly normal, no evidence of mucoid secretions, mucous plugging active bleeding/old blood clots noted. The right lower lobe airways where bleeding was noted yesterday appeared to be clear with no evidence of active bleeding/old blood clots. It is reassuring that the previously concerning right lower lobe endobronchial lesion is not entirely clear on today's examination which can well be from old blood clot that was seen yesterday after the bleeding. Will follow-up with the biopsy results. Patient tolerated the procedure with no immediate acute complications. We will follow the patient in pulmonary clinic in 7 to 10 days. Findings:: Please see the procedure note Recommendations:: Postoperative bronchoscopy instructions. Complications:: No acute immediate complication Estimated blood obtained (mL): 0
[2025-01-02 14:32] LABS: ABG Base Excess 3.1 mmol/L (-2.4-2.3); ABG HCO3 27.8 mmhg (22.0-26.0); ABG Oxygen Saturation 92 % (90-100); ABG PCO2 44.7 mmhg (35.0-45.0); ABG PH 7.41 mmol/L (7.35-7.45); ABG PO2 63.8 mmhg (80-100); ABG TCO2 29.1 mmhg (23-27); Oxygen 50 %; PEEP 5; Pressure Support 5
[2025-01-02 14:33] LABS: Allen's Test ACCEPTABLE; Source L RADIAL
--- NOTE | 2025-01-02 15:29 | PC.NURSE ---
Patient was extubated was 15:00. Patient was placed on Venti mask 15L/50%. Patient was only maintaining O2 sats 88%. RT placed patient on Vapotherm 40L/70%. O2 sats above 90% at this time.
--- NOTE | 2025-01-02 15:45 | P.PN_ITS ---
Subjective *Date: 01/02/25 *Time: 15:45 Interval history: Initial evaluation performed patient intubated. She is calm and comfortable. Satting 100% on vent. Evaluated after extubation. Somnolent but will open eyes and respond to questions. Appears quite fatigued and chronically ill. Afebrile Medical Exam Vital signs and Labs for Last 24 Hours: Vital Signs Temp Pulse Resp BP Pulse Ox O2 Del Method O2 Flow Rate 01/02/25 15:21 90 L Vapotherm 40 01/02/25 15:12 94 L Vapotherm 40 01/02/25 15:11 95 01/02/25 15:00 98 H 14 129/56 L 92 L Vapotherm 40 01/02/25 15:00 Vapotherm 40 01/02/25 14:00 98 H 14 131/63 94 L Mechanical Ventilation 01/02/25 13:16 86 01/02/25 13:16 95 H 01/02/25 13:10 12 94 L 01/02/25 13:00 95 H 20 113/53 L 95 Mechanical Ventilation 01/02/25 13:00 Mechanical Ventilation 01/02/25 12:00 Mechanical Ventilation 01/02/25 12:00 85 22 99/53 L 96 Mechanical Ventilation 01/02/25 12:00 87 01/02/25 12:00 96 Mechanical Ventilation 01/02/25 11:00 87 22 106/49 L 96 Mechanical Ventilation 01/02/25 11:00 Mechanical Ventilation 01/02/25 11:00 81 22 106/49 L 96 Mechanical Ventilation 01/02/25 11:00 Mechanical Ventilation 01/02/25 10:12 84 22 95/52 L 96 Mechanical Ventilation 01/02/25 10:12 Mechanical Ventilation 01/02/25 09:08 84 22 93/52 L 94 L Mechanical Ventilation 01/02/25 09:08 Mechanical Ventilation 01/02/25 09:00 Mechanical Ventilation 01/02/25 08:58 99 01/02/25 08:00 99.6 F 88 22 104/55 L 100 Mechanical Ventilation 01/02/25 08:00 Mechanical Ventilation 01/02/25 08:00 85 01/02/25 08:00 100 Mechanical Ventilation 01/02/25 07:00 80 22 96/49 L 100 Mechanical Ventilation 01/02/25 06:36 76 01/02/25 06:36 76 01/02/25 06:36 22 100 01/02/25 06:25 Mechanical Ventilation 01/02/25 06:00 78 22 94/49 L 100 01/02/25 05:00 99.6 F 97 H 15 115/76 100 Mechanical Ventilation 01/02/25 04:31 Mechanical Ventilation 01/02/25 04:00 98.6 F 86 22 109/50 L 100 Mechanical Ventilation 01/02/25 04:00 Mechanical Ventilation 01/02/25 04:00 84 01/02/25 03:58 22 100 01/02/25 03:00 Mechanical Ventilation 01/02/25 03:00 93 H 22 114/60 100 Mechanical Ventilation 01/02/25 02:11 84 01/02/25 02:11 85 01/02/25 02:11 22 100 01/02/25 02:05 83 22 100 01/02/25 02:00 85 22 109/51 L 100 Mechanical Ventilation 01/02/25 02:00 Mechanical Ventilation 01/02/25 01:25 110/56 L 01/02/25 01:20 81 22 109/56 L 100 Mechanical Ventilation 01/02/25 01:10 82 22 110/56 L 100 Mechanical Ventilation 01/02/25 01:05 82 22 113/55 L 100 Mechanical Ventilation 01/02/25 01:05 113/55 L 01/02/25 01:00 81 22 108/56 L 100 Mechanical Ventilation 01/02/25 01:00 Mechanical Ventilation 01/02/25 00:55 80 22 101/54 L 100 Mechanical Ventilation 01/02/25 00:50 83 22 101/52 L 100 Mechanical Ventilation 01/02/25 00:45 84 22 97/52 L 100 Mechanical Ventilation 01/02/25 00:45 97/52 L 01/02/25 00:40 82 22 96/51 L 100 Mechanical Ventilation 01/02/25 00:35 85 22 100 01/02/25 00:30 84 22 97/56 L 100 Mechanical Ventilation 01/02/25 00:25 84 22 100/51 L 100 Mechanical Ventilation 01/02/25 00:20 86 23 99/54 L 100 Mechanical Ventilation 01/02/25 00:17 22 100 01/02/25 00:15 85 21 104/52 L 100 Mechanical Ventilation 01/02/25 00:10 84 22 104/52 L 100 Mechanical Ventilation 01/02/25 00:05 99.6 F 86 22 100/52 L 100 Mechanical Ventilation 01/02/25 00:00 84 01/02/25 00:00 85 22 105/57 L 100 Mechanical Ventilation 01/01/25 23:50 86 22 107/50 L 100 Mechanical Ventilation 01/01/25 23:45 85 22 108/50 L 100 Mechanical Ventilation 01/01/25 23:30 85 26 H 103/48 L 100 Mechanical Ventilation 01/01/25 23:30 103/48 L 01/01/25 23:25 85 22 103/48 L 100 Mechanical Ventilation 01/01/25 23:20 87 22 103/48 L 100 Mechanical Ventilation 01/01/25 23:15 86 22 108/49 L 100 01/01/25 23:10 85 22 108/50 L 100 Mechanical Ventilation 01/01/25 23:05 86 22 114/51 L 100 Mechanical Ventilation 01/01/25 23:00 86 22 111/50 L 100 Mechanical Ventilation 01/01/25 23:00 Mechanical Ventilation 01/01/25 23:00 99.4 F 86 22 107/50 L 100 01/01/25 22:55 83 15 113/51 L 100 Mechanical Ventilation 01/01/25 22:50 83 22 100 01/01/25 22:50 99.6 F 112/51 L 01/01/25 22:45 83 22 100 01/01/25 22:45 110/48 L 01/01/25 22:40 84 22 100 01/01/25 22:40 112/51 L 01/01/25 22:35 85 22 100 01/01/25 22:35 111/49 L 01/01/25 22:30 87 22 100 01/01/25 22:30 105/49 L 01/01/25 22:25 99/44 L 01/01/25 22:25 81 22 100 01/01/25 22:20 81 22 100 01/01/25 22:20 98/45 L 01/01/25 22:15 99.4 F 84 22 103/58 L 100 01/01/25 22:15 81 24 100 01/01/25 22:15 97/44 L 01/01/25 22:10 95/44 L 01/01/25 22:10 81 22 95/44 L 100 Mechanical Ventilation 01/01/25 22:09 83 01/01/25 22:09 80 02/20/25 22:09 22 100 01/01/25 22:00 99.4 F 85 22 98/54 L 100 01/01/25 22:00 82 22 102/47 L 100 Mechanical Ventilation 01/01/25 21:55 83 22 95/46 L 100 Mechanical Ventilation 01/01/25 21:50 84 22 94/47 L 100 Mechanical Ventilation 01/01/25 21:45 83 22 96/46 L 100 Mechanical Ventilation 01/01/25 21:45 99.4 F 83 22 96/46 L 100 01/01/25 21:40 82 22 91/44 L 100 Mechanical Ventilation 01/01/25 21:35 83 22 88/42 L 100 Mechanical Ventilation 01/01/25 21:30 84 22 89/47 L 100 Mechanical Ventilation 01/01/25 21:30 99.4 F 83 22 87/42 L 100 01/01/25 21:25 83 22 87/42 L 100 Mechanical Ventilation 01/01/25 21:20 84 22 86/41 L 100 Mechanical Ventilation 01/01/25 21:15 85 22 83/40 L 100 Mechanical Ventilation 01/01/25 21:15 99.3 F 84 22 83/40 L 100 01/01/25 21:10 85 22 78/39 L 100 Mechanical Ventilation 01/01/25 21:10 99.3 F 82 22 78/39 L 100 01/01/25 21:05 89 22 76/42 L 100 Mechanical Ventilation 01/01/25 21:05 100.0 F H 88 22 76/42 L 100 01/01/25 21:02 84 22 77/40 L 100 Mechanical Ventilation 01/01/25 21:00 84 22 79/41 L 100 Mechanical Ventilation 01/01/25 21:00 100.0 F H 82 22 77/40 L 100 01/01/25 20:55 100 F H 87 22 96/51 L 100 01/01/25 20:49 100 F H 01/01/25 20:45 87 22 96/51 L 100 Mechanical Ventilation 01/01/25 20:30 88 22 96/45 L 100 Mechanical Ventilation 01/01/25 20:15 86 22 86/42 L 100 Mechanical Ventilation 01/01/25 20:14 99.6 F 01/01/25 20:03 22 100 01/01/25 20:00 Mechanical Ventilation 01/01/25 20:00 87 22 100 01/01/25 20:00 85/41 L 01/01/25 19:45 92/41 L 01/01/25 19:45 86 22 100 01/01/25 19:30 98/45 L 01/01/25 19:30 88 22 100 01/01/25 19:15 86 22 100 01/01/25 19:15 102/47 L 01/01/25 19:00 82 22 100 01/01/25 19:00 107/50 L 01/01/25 18:45 79 22 100 01/01/25 18:20 78 01/01/25 18:20 80 01/01/25 18:20 22 100 01/01/25 18:19 97.5 F L 01/01/25 18:00 97.0 F L 01/01/25 17:00 Mechanical Ventilation 01/01/25 16:00 77 FiO2 01/02/25 15:21 70 01/02/25 15:12 50 01/02/25 15:11 01/02/25 15:00 01/02/25 15:00 01/02/25 14:00 01/02/25 13:16 01/02/25 13:16 01/02/25 13:10 50 01/02/25 13:00 01/02/25 13:00 01/02/25 12:00 50 01/02/25 12:00 01/02/25 12:00 01/02/25 12:00 50 01/02/25 11:00 01/02/25 11:00 50 01/02/25 11:00 01/02/25 11:00 01/02/25 10:12 01/02/25 10:12 50 01/02/25 09:08 01/02/25 09:08 50 01/02/25 09:00 01/02/25 08:58 50 01/02/25 08:00 01/02/25 08:00 100 01/02/25 08:00 01/02/25 08:00 100 01/02/25 07:00 01/02/25 06:36 01/02/25 06:36 01/02/25 06:36 100 01/02/25 06:25 01/02/25 06:00 01/02/25 05:00 01/02/25 04:31 01/02/25 04:00 01/02/25 04:00 100 01/02/25 04:00 01/02/25 03:58 100 01/02/25 03:00 01/02/25 03:00 01/02/25 02:11 01/02/25 02:11 01/02/25 02:11 01/02/25 02:05 01/02/25 02:00 01/02/25 02:00 01/02/25 01:25 01/02/25 01:20 01/02/25 01:10 01/02/25 01:05 01/02/25 01:05 01/02/25 01:00 01/02/25 01:00 01/02/25 00:55 01/02/25 00:50 01/02/25 00:45 01/02/25 00:45 01/02/25 00:40 01/02/25 00:35 01/02/25 00:30 01/02/25 00:25 01/02/25 00:20 01/02/25 00:17 01/02/25 00:15 01/02/25 00:10 01/02/25 00:05 01/02/25 00:00 01/02/25 00:00 01/01/25 23:50 01/01/25 23:45 01/01/25 23:30 01/01/25 23:30 01/01/25 23:25 01/01/25 23:20 01/01/25 23:15 01/01/25 23:10 01/01/25 23:05 01/01/25 23:00 01/01/25 23:00 01/01/25 23:00 01/01/25 22:55 01/01/25 22:50 01/01/25 22:50 01/01/25 22:45 01/01/25 22:45 01/01/25 22:40 01/01/25 22:40 01/01/25 22:35 01/01/25 22:35 01/01/25 22:30 01/01/25 22:30 01/01/25 22:25 01/01/25 22:25 01/01/25 22:20 01/01/25 22:20 01/01/25 22:15 01/01/25 22:15 01/01/25 22:15 01/01/25 22:10 01/01/25 22:10 01/01/25 22:09 01/01/25 22:09 01/01/25 22:09 100 01/01/25 22:00 01/01/25 22:00 01/01/25 21:55 01/01/25 21:50 01/01/25 21:45 01/01/25 21:45 01/01/25 21:40 01/01/25 21:35 01/01/25 21:30 01/01/25 21:30 01/01/25 21:25 01/01/25 21:20 01/01/25 21:15 01/01/25 21:15 01/01/25 21:10 01/01/25 21:10 01/01/25 21:05 01/01/25 21:05 01/01/25 21:02 01/01/25 21:00 01/01/25 21:00 01/01/25 20:55 01/01/25 20:49 01/01/25 20:45 01/01/25 20:30 01/01/25 20:15 01/01/25 20:14 01/01/25 20:03 01/01/25 20:00 01/01/25 20:00 01/01/25 20:00 01/01/25 19:45 01/01/25 19:45 01/01/25 19:30 01/01/25 19:30 01/01/25 19:15 01/01/25 19:15 01/01/25 19:00 01/01/25 19:00 01/01/25 18:45 01/01/25 18:20 01/01/25 18:20 01/01/25 18:20 100 01/01/25 18:19 01/01/25 18:00 01/01/25 17:00 01/01/25 16:00 Intake and Output 01/01/25 01/02/25 01/02/25 23:59 07:59 15:59 Intake Total 592.432 / 1386.722 100 / 474.637 374.637 / 474.637 Output Total 550 / 1200 400 / 600 200 / 600 Balance 42.432 / 186.722 -300 / -125.363 174.637 / -125.363 Intake: Intake, Total IV Amount 342.432 / 886.722 100 / 474.637 374.637 / 474.637 Linezolid 600 mg In 300 ml @ 300 / 590 300 / 300 300 mls/hr IV Q12H [facility] Rx#: [id number] Intake (Blood Product) Amt 250 / 500 Red Blood Cells Unit 250 / 250 [id number] Output: Output, Urine Amount 550 / 1200 400 / 500 100 / 500 Output, Urine Amount (Catheter) 100 / 100 Ramos 100 / 100 Other: Number of Unmeasured Voids 0 0 0 Number of Bowel Movements 1 Weight 52 kg Patient Weight 01/02/25 23:59 Weight 52 kg Laboratory Results - last 24 hr 01/01/25 10:25: Blood Type O Positive, Antibody Screen Negative, Crossmatch (AHG) See Detail 01/01/25 17:46: Sodium 125 L, Potassium 4.2 D, Chloride 93 L, Carbon Dioxide 30, Anion Gap 6.2, BUN 7, Creatinine 0.50 L, Estimated Creat Clear 46, Estimated GFR 124, Est GFR ( Amer) 150, Glucose 78 D, Calcium 7.5 L 01/02/25 05:26: ESR > 140 H, C-Reactive Protein 156.1 H 01/02/25 08:25: WBC 5.9, RBC 2.92 L, Hgb 7.8 L, Hct 23.7 L, MCV 81.2, MCH 26.7 L , MCHC 32.9, RDW 17.2, Plt Count 122 L, MPV 9.7, Neut % (Auto) 83.9 H, Lymph % (Auto) 8.0 L, [place] % (Auto) 7.1, Eos % (Auto) 0.2, Baso % (Auto) 0.3, Neut # (Auto) 5.0, Lymph # (Auto) 0.5 L, [place] # (Auto) 0.4, Eos # (Auto) 0.0, Baso # (Auto) 0.0, Sodium 124 L, Potassium 4.6, Chloride 93 L, Carbon Dioxide 30, Anion Gap 5.6, BUN 9 D, Creatinine 0.60, Estimated Creat Clear 46, Estimated GFR 100, Est GFR ( Amer) 121, Glucose 81, Calcium 7.7 L, Magnesium 1.9, Total Bilirubin < 0.1 L, AST 19, ALT 14, Alkaline Phosphatase 90, Total Protein 5.2 L, Albumin 2.2 L, Globulin 3.0, Albumin/Globulin Ratio 0.7 L 01/02/25 14:15: Specimen Source L radial, O2 % 50, ABG pH 7.41, ABG pCO2 44.7, ABG pO2 63.8 L, ABG HCO3 27.8 H, ABG Total CO2 29.1 H, ABG O2 Saturation 92, ABG Base Excess 3.1 H, Emigdio Test Acceptable, PEEP 5 I & O for Labs for Last 24 Hours: Intake & Output 12/30/24 12/31/24 01/01/25 01/02/25 23:59 23:59 23:59 23:59 Intake Total 2231 / 2531 2196 / 2196 1386.722 / 1386.722 474.637 / 474.637 Output Total 650 / 650 250 / 250 1100 / 1200 600 / 600 Balance 1581 / 1881 1946 / 1946 286.722 / 186.722 -125.363 / -125.363 Weight 51.8 kg 54.613 kg 51.982 kg 52 kg Microbiology Reports for the Last 24 Hours: Microbiology 01/01/25 13:20 Transbronchial Biopsy - Right Lower Lobe Surgical Biopsy Culture - Preliminary NO GROWTH AFTER 24 HOURS 01/01/25 13:20 Transbronchial Biopsy - Right Lower Lobe - Final 01/01/25 13:20 Transbronchial Biopsy - Right Lower Lobe Acid Fast Bacilli Smear - Final 01/01/25 13:20 Bronchial Lavage - Right Lower Lobe - Final 01/01/25 13:20 Bronchial Lavage - Right Lower Lobe Acid Fast Bacilli Smear - Final 01/01/25 13:20 Bronchial Lavage - Left Lower Lobe - Final 01/01/25 13:20 Bronchial Lavage - Left Lower Lobe Acid Fast Bacilli Smear - Final 01/01/25 14:20 Sputum - Endotracheal Wash Gram Stain - Final 01/01/25 14:20 Sputum - Endotracheal Wash Sputum Culture - Preliminary Gram Positive Cocci Constitutional: Present mild distress, cachectic, chronically ill appearing and cooperative Head: Present atraumatic and normocephalic ENT: Present normal exam Respiratory: Present accessory muscle use, prolonged expiratory phase, wheezes, crackles and diminished air movement; Absent rhonchi Cardiac: Present Reg Rate and Rhythm GI: Present soft and normal bowel sounds; Absent distention or tenderness Extremities: Present normal inspection and full ROM Skin: Present intact; Absent erythema Neuro: Present Grossly Intact, alert, awake and moves all extremities Assessment and Plan *Assessment and plan (1) Right lower lobe pneumonia: Status: Acute Category: Medical Code(s): J18.9 - Pneumonia, unspecified organism (2) Acute urinary retention: Status: Acute Category: Medical Code(s): R33.8 - Other retention of urine (3) MRSA pneumonia: Status: Acute Category: Medical Code(s): J15.212 - Pneumonia due to Methicillin resistant Staphylococcus aureus (4) Acute respiratory failure with hypoxemia: Status: Acute Category: Medical Code(s): J96.01 - Acute respiratory failure with hypoxia (5) Severe protein-calorie malnutrition: Status: Acute Category: Medical Code(s): E43 - Unspecified severe protein-calorie malnutrition (6) SIADH (syndrome of inappropriate ADH production): Status: Acute Category: Medical Code(s): E22.2 - Syndrome of inappropriate secretion of antidiuretic hormone (7) Hyponatremia: Status: Acute Category: Medical Code(s): E87.1 - Hypo-osmolality and hyponatremia Plan Marisa Kruse is a 64-year-old female with a medical history of COPD, hypertension, extensive smoking history, chronic hyponatremia, CAD presents with progressive functional decline, shortness of breath, productive cough. She was recently discharged about a week ago in stable condition after treatment for right lobar pneumonia. Patient states she did well for a few days at home and finished her course of Augmentin, however over the past few days she became increasingly short of breath, productive cough and profound weakness. She denies chest pain, abdominal pain. Patient at this time is not the best historian given her lethargy workup in the ED significant for WBC 8.1, sodium 125, BNP 2070. CTA revealed extensive right lower lobe pneumonia, hilar adenopathy. CT abdomen/pelvis suggestive of fluid-filled bowels, and severely distended urinary bladder. Patient to go back for repeat bronchoscopy today. Stable on vent overnight. Continues to require ICU level of care. Condition critical, prognosis guarded. Problems addressed as follows: #Acute hypoxic respiratory failure #MRSA multifocal pneumonia #Hilar adenopathy ? Initial CTA revealed right lobar pneumonia. No leukocytosis or signs of sepsis at that time. In the setting of tachypnea and tachycardia and persistent pneumonia, concern for sepsis at this time. ? CTA also reveals hilar adenopathy and spoke with pulmonology, likely reactive at this time. However, worth investigating given chronic hyponatremia in 120s, possibly SIADH pending labs. ? Patient taken for repeat bronchoscopy today. Case discussed with pulmonology. Continue broad-spectrum antibiotics with Zyvox and Bactrim double strength twice daily. Zyvox 600 mg twice a day. -Improved secretions on bronchoscopy today. Will extubate after bronchoscopy. -Endobronchial biopsy pending from lesion noted yesterday. No further bleeding. -White count 5.9, hemoglobin 7.8. ESR remains elevated at greater than 140, CRP 156. -Repeat CBC, CMP, magnesium ordered for the morning -Sputum growing stenotrophomonas and MRSA - Chest x-ray from today per my review, shows persistent but improving right lower effusion and pneumonia. Anemia: Hemoglobin improved to 7.8 after transfusion. transfusion threshold hemoglobin less than 7. #Right heart failure #Elevated BNP ? Initial BNP 2000, with 3+ pitting edema. Likely further exacerbated by protein/nutritional deficiencies. ? ECHO reveals moderate RV dilation, mildly reduced RV function. RVSP 50 to 55 mmHg. Likely from advanced COPD, probable pulmonary hypertension. ? Hypervolemia resolved with Bumex diuresis, net negative during admission ? Creatinine 0.6, BUN 9 ? Monitor renal function, electrolytes. Follow-up CMP in the morning # Acute on chronic hyponatremia ? Sodium 125 on admission. Sodium stable at 124, chloride 93. Repeat sodium level every 12 hours. Continue to fluid restrict less than 1500 cc a day. - Consistent with SIADH based on labs earlier this month with urine sodium in the 50s. Inappropriately elevated. - Continue sodium chloride replacement with 1000 mg twice daily p.o. #COPD exacerbation ? Current smoker. COPD seems slightly exacerbated today. ? continue DuoNebs, Pulmicort. Hold Trelegy. #Cognitive decline ? Per patient's brother, patient has had cognitive decline since Thanks. He believes that patient is not adequately taking care of herself at home, does not always remember to take her medications, does have boyfriend but he is not around every day. ? Patient is waxing and waning in confusion during hospitalization. Could be hospital-acquired delirium with underlying dementia. ? There is some concern for dementia given progressive cognitive changes. TFTs, B12, folate normal. ? CT head 12/18/2024 shows mild atrophy. ? Started IV Haldol 2 mg as needed for agitation. #Physical deconditioning #Functional decline #Severe protein calorie malnutrition ? PT/OT consulted, recommended home with home health. ? Will provide high-protein shakes with meals. ? TFTs, B12, folate normal. Follow-up vitamin D. #Urinary retention ? Severely distended bladder on initial CT, s/p Ramos insertion with significant output. ?Ramos replaced 01/01/25 due to failure of spontaneous voiding trial. Will refer to urology as an outpatient #Hypertension: Hold home lisinopril today. #GERD: continue home PPI. Full code DVT prophylaxis: Lovenox 40 mg ICU/Critical care attestation This patient is critically ill with 35 minutes devoted solely to this patient managing life/organ supporting interventions that required physician assessment. This includes time spent making adjustments in ventilator settings, IV fluid administration, titration of pressors, adjustments of medications, discussion of patient with consultants and other care providers as well as updating patient and/or family (if patient by virtue of his/her condition is unable to participate in decision making). This does not include time spent performing separately billed procedures. Time is not concurrent with that of other providers.
[2025-01-02] MEDS: NYSTATIN SUSP 500,000 UNITS/5ML UDC 500000 UNIT PO ×2 (18:17→20:08)
[2025-01-02] MEDS: PANTOPRAZOLE 40MG TABLET 40 MG PO (20:08)
[2025-01-03] VITALS (34 sets, daily range): BP systolic 114–153; BP diastolic 58–74; PULSE 79–106; RESP 11–23; TEMP 36.6–36.8; O2SAT 84–97; BMI 20.1
[2025-01-03] MEDS: IPRATROPIUM/ALBUTEROL 3 ML NEB IH ×6 (01:42→22:08)
[2025-01-03] MEDS: SULFAMETHOXAZOLE/TRIMETHOPRIM 10 ML in DEXTROSE 5 % IN WATER 250 ML 173.333 ML IV ×2 (01:58→13:54)
[2025-01-03] MEDS: BUDESONIDE 0.5MG/2ML NEB 0.5 MG IH ×2 (06:43→18:30)
[2025-01-03 08:36] LABS: Erythrocyte Sedimentation Rate 125 mm/hr (0-30)
[2025-01-03 08:46] LABS: Basophils % 0.5 % (0.1-2.0); Eosinophils % 0.3 % (0.1-12.0); Hematocrit 27.6 % (37.0-47.0); Lymphocytes # 0.4 K/mm3 (0.7-4.5); Lymphocytes % 5.8 % (10-50); Mean Corpuscular HGB Conc 32.2 g/dL (31.8-35.4); Mean Corpuscular Hemoglobin 26.5 pg (27.0-31.2); Mean Corpuscular Volume 82.1 fl (81-99); Mean Platelet Volume 9.7 fl (7.4-10.4); Monocytes # 0.4 K/mm3 (0.1-1.0); Monocytes % 5.7 % (1.7-9.3); Neutrophils # 5.5 K/mm3 (1.8-7.8); Neutrophils % 86.9 % (37.0-80.0); Platelet Count 143 K/mm3 (142-424); Red Blood Count 3.36 M/mm3 (4.20-5.40); Red Cell Distribution Width 17.4 % (11.5-17.5); White Blood Count 6.4 K/mm3 (4.8-10.8)
[2025-01-03] MEDS: LINEZOLID 600 MG/300 ML IV.SOLN 300 MG IV ×2 (08:50→20:00)
[2025-01-03] MEDS: ENOXAPARIN 40MG/0.4ML SYRINGE 40 MG SUBCUT (08:50)
[2025-01-03] MEDS: NYSTATIN SUSP 500,000 UNITS/5ML UDC 500000 UNIT PO ×4 (08:50→20:02)
[2025-01-03 08:54] LABS: Hemoglobin 8.9 g/dL (12.2-16.2)
[2025-01-03 09:32] LABS: Albumin Level 2.3 g/dl (3.5-5.0); Chloride 92 mmol/L (98-107); Potassium 4.6 mmoL/L (3.5-5.1); Sodium 126 mmol/L (136-145)
[2025-01-03 09:35] LABS: Alanine Aminotransferase 15 U/L (12-78); Albumin/Globulin Ratio 0.7 (1.1-1.8); Alkaline Phosphatase 106 U/L (38-126); Anion Gap 6.6 mEq/L (5-15); Aspartate Amino Transferase 24 U/L (14-36); Blood Urea Nitrogen 8 mg/dl (7-17); Calcium 7.8 mg/dl (8.4-10.2); Carbon Dioxide 32 mmol/L (22.0-30.0); Creatinine Clearance Estimated 48 mL/min (50-200); Estimated Glomerular Filt Rate 84 ml/min (>60); GFR (African American) 102 ML/MIN (>60); Globulin 3.4 g/dL (1.3-3.2); Glucose 69 mg/dl (74-100); Total Protein,Serum 5.7 g/dl (6.3-8.2)
[2025-01-03 09:36] LABS: Magnesium 1.8 mg/dl (1.6-2.3)
[2025-01-03 09:42] LABS: Bilirubin,Total 0.1 mg/dl (0.2-1.3)
[2025-01-03] MEDS: FUROSEMIDE 40MG/4ML VIAL 40 MG IV (10:46)
[2025-01-03] MEDS: SODIUM CHLORIDE 1,000MG TABLET 1000 MG PO ×2 (11:57→20:00)
[2025-01-03] MEDS: guaiFENesin 200MG/10ML SYRUP UDC 200 MG PO ×2 (11:58→20:00)
--- NOTE | 2025-01-03 12:55 | XR_ITS ---
PROCEDURE INFORMATION: Exam: XR Chest Exam date and time: 01/03/2025 1:09 PM Age: 64 years old Clinical indication: Shortness of breath; Additional info: SOB TECHNIQUE: Imaging protocol: Radiologic exam of the chest. Views: 1 view. COMPARISON: CR XR CHEST PORTABLE 01/02/2025 9:35 AM FINDINGS: Lungs: Slight improved aeration of interstitial opacities in the mid and lower lung zones bilaterally. Bibasilar airspace opacities. Pleural spaces: Small pleural effusions bilaterally. Heart/Mediastinum: Unremarkable. No cardiomegaly. Bones/joints: Stable hardware. Other findings: Interval extubation. IMPRESSION: 1. Interval extubation. 2. Slight improved aeration of interstitial opacities in the mid and lower lung zones bilaterally. 3. Bibasilar airspace opacities. 4. Small pleural effusions bilaterally.
--- NOTE | 2025-01-03 15:11 | P.PN_ITS ---
Subjective *Date: 01/03/25 *Time: 15:11 Interval history: More responsive and interactive on exam today. Answering questions appropriately. Alert and oriented x 4. No nausea or vomiting. On Vapotherm 40 L, 100%. Denies chest pain. Tolerating p.o. intake. Medical Exam Vital signs and Labs for Last 24 Hours: Vital Signs Temp Pulse Pulse Resp BP Pulse Ox O2 Del Method 01/03/25 15:00 87 16 139/71 96 Vapotherm 01/03/25 14:59 Vapotherm 01/03/25 14:53 92 H 01/03/25 14:53 92 H 01/03/25 14:53 92 L Vapotherm 01/03/25 14:00 95 H 18 143/67 H 95 Vapotherm 01/03/25 13:00 95 H 16 137/58 L 93 L Vapotherm 01/03/25 13:00 Vapotherm 01/03/25 12:00 91 L Vapotherm 01/03/25 12:00 98.2 F 95 H 14 136/71 92 L Vapotherm 01/03/25 12:00 90 01/03/25 11:00 98 H 16 129/62 89 L Vapotherm 01/03/25 10:52 Vapotherm 01/03/25 10:20 87 01/03/25 10:20 86 01/03/25 10:20 92 L Vapotherm 01/03/25 10:00 84 16 125/63 95 Vapotherm 01/03/25 09:00 Vapotherm 01/03/25 09:00 83 16 121/61 92 L Vapotherm 01/03/25 09:00 93 L Vapotherm 01/03/25 08:00 98.0 F 92 H 14 131/63 96 Vapotherm 01/03/25 08:00 83 01/03/25 07:00 89 13 121/61 95 Vapotherm 01/03/25 06:53 93 H 01/03/25 06:53 93 H 01/03/25 06:53 88 L Vapotherm 01/03/25 06:32 Vapotherm 01/03/25 06:17 114/61 01/03/25 06:00 89 16 90 L Vapotherm 01/03/25 05:00 90 16 90 L Vapotherm 01/03/25 05:00 135/62 02/22/25 05:00 Vapotherm 01/03/25 04:00 90 01/03/25 04:00 129/63 01/03/25 04:00 98.2 F 85 13 92 L Vapotherm 01/03/25 04:00 87 90 L Vapotherm 01/03/25 03:00 Vapotherm 01/03/25 03:00 16 125/62 92 L Vapotherm 01/03/25 02:00 97 H 21 93 L Vapotherm 01/03/25 02:00 127/64 01/03/25 01:42 91 H 01/03/25 01:42 92 H 01/03/25 01:00 86 15 92 L Vapotherm 01/03/25 01:00 141/65 H 01/03/25 01:00 Vapotherm 01/03/25 00:00 90 01/03/25 00:00 97.9 F 86 13 96 Vapotherm 01/03/25 00:00 139/67 01/03/25 00:00 90 92 L Vapotherm 01/02/25 23:14 92 H 20 89 L Vapotherm 01/02/25 23:00 Vapotherm 01/02/25 22:03 91 H 01/02/25 22:03 93 H 01/02/25 22:03 91 L Vapotherm 01/02/25 22:00 95 H 18 135/69 89 L Vapotherm 01/02/25 21:00 91 H 13 91 L Vapotherm 01/02/25 21:00 120/58 L 01/02/25 20:56 Vapotherm 01/02/25 20:00 90 01/02/25 20:00 93 H 16 92 L Vapotherm 01/02/25 20:00 126/61 01/02/25 19:54 92 H 91 L Vapotherm 01/02/25 19:00 90 16 129/58 L 90 L Vapotherm 01/02/25 18:54 Vapotherm 01/02/25 18:11 93 H 01/02/25 18:11 94 H 01/02/25 18:11 92 L Vapotherm 01/02/25 18:00 91 H 16 124/60 91 L Vapotherm 01/02/25 17:00 90 16 126/56 L 91 L Vapotherm 01/02/25 17:00 Vapotherm 01/02/25 16:00 97.8 F 96 H 16 131/62 90 L Vapotherm 01/02/25 16:00 96 H 01/02/25 16:00 89 L Vapotherm 01/02/25 15:21 90 L Vapotherm 01/02/25 15:12 94 L Vapotherm O2 Flow Rate FiO2 01/03/25 15:00 40 01/03/25 14:59 40 01/03/25 14:53 01/03/25 14:53 01/03/25 14:53 40 100 01/03/25 14:00 40 01/03/25 13:00 40 01/03/25 13:00 40 01/03/25 12:00 40 100 01/03/25 12:00 40 01/03/25 12:00 01/03/25 11:00 40 01/03/25 10:52 40 01/03/25 10:20 01/03/25 10:20 01/03/25 10:20 40 100 01/03/25 10:00 40 01/03/25 09:00 40 01/03/25 09:00 40 01/03/25 09:00 40 100 01/03/25 08:00 40 01/03/25 08:00 01/03/25 07:00 40 01/03/25 06:53 01/03/25 06:53 01/03/25 06:53 40 100 01/03/25 06:32 40 01/03/25 06:17 01/03/25 06:00 40 01/03/25 05:00 40 01/03/25 05:00 01/03/25 05:00 01/03/25 04:00 01/03/25 04:00 01/03/25 04:00 40 01/03/25 04:00 40 100 01/03/25 03:00 01/03/25 03:00 40 01/03/25 02:00 40 01/03/25 02:00 01/03/25 01:42 01/03/25 01:42 01/03/25 01:00 40 01/03/25 01:00 01/03/25 01:00 40 01/03/25 00:00 01/03/25 00:00 40 01/03/25 00:00 01/03/25 00:00 40 100 01/02/25 23:14 40 01/02/25 23:00 40 01/02/25 22:03 01/02/25 22:03 01/02/25 22:03 40 90 01/02/25 22:00 40 01/02/25 21:00 40 01/02/25 21:00 01/02/25 20:56 40 01/02/25 20:00 01/02/25 20:00 40 01/02/25 20:00 01/02/25 19:54 40 80 01/02/25 19:00 40 01/02/25 18:54 40 01/02/25 18:11 01/02/25 18:11 01/02/25 18:11 40 70 01/02/25 18:00 40 01/02/25 17:00 40 01/02/25 17:00 40 01/02/25 16:00 40 01/02/25 16:00 01/02/25 16:00 40 70 01/02/25 15:21 40 70 01/02/25 15:12 40 50 Intake and Output 01/02/25 01/03/25 01/03/25 23:59 07:59 15:59 Intake Total 285 / 759.637 0 / 400 400 / 400 Output Total 1200 / 2200 1200 / 4050 2850 / 4050 Balance -915 / -1440.363 -1200 / -3650 -2450 / -3650 Intake: Intake, Oral Amount 0 / 100 100 / 100 Intake, Total IV Amount 285 / 759.637 300 / 300 Linezolid 600 mg In 300 ml @ 285 / 585 300 / 300 300 mls/hr IV Q12H REPLACED BY [facility] Rx#: [id number] Output: Output, Urine Amount 450 / 950 1500 / 1500 Output, Urine Amount (Catheter) 750 / 1250 1200 / 2550 1350 / 2550 Ramos 750 / 1250 1200 / 2550 1350 / 2550 Other: Number of Bowel Movements 1 Weight 54.749 kg Patient Weight 01/03/25 23:59 Weight 54.749 kg Laboratory Results - last 24 hr 01/03/25 06:14: WBC 6.4, RBC 3.36 L, Hgb 8.9 L D, Hct 27.6 L, MCV 82.1, MCH 26.5 L, MCHC 32.2, RDW 17.4, Plt Count 143, MPV 9.7, Neut % (Auto) 86.9 H, Lymph % (Auto) 5.8 L, [place] % (Auto) 5.7, Eos % (Auto) 0.3, Baso % (Auto) 0.5, Neut # (Auto) 5.5, Lymph # (Auto) 0.4 L, [place] # (Auto) 0.4, Eos # (Auto) 0.0, Baso # (Auto) 0.0, ESR 125 H, Sodium 126 L, Potassium 4.6, Chloride 92 L, Carbon Dioxide 32 H, Anion Gap 6.6, BUN 8, Creatinine 0.70, Estimated Creat Clear 48, Estimated GFR 84, Est GFR ( Amer) 102, Glucose 69 L, Calcium 7.8 L, Magnesium 1.8, Total Bilirubin 0.1 L, AST 24 D, ALT 15, Alkaline Phosphatase 106, C-Reactive Protein 182.0 H, Total Protein 5.7 L, Albumin 2.3 L, Globulin 3.4 H, Albumin/Globulin Ratio 0.7 L I & O for Labs for Last 24 Hours: Intake & Output 12/31/24 01/01/25 01/02/25 01/03/25 23:59 23:59 23:59 23:59 Intake Total 2196 / 2196 1386.722 / 1386.722 759.637 / 759.637 400 / 400 Output Total 250 / 250 1100 / 1200 2200 / 2200 4050 / 4050 Balance 1946 / 1946 286.722 / 186.722 -1440.363 / -1440.363 -3650 / -3650 Weight 54.613 kg 51.982 kg 52 kg 54.749 kg Microbiology Reports for the Last 24 Hours: Microbiology 01/01/25 14:20 Sputum - Endotracheal Wash Gram Stain - Final 01/01/25 14:20 Sputum - Endotracheal Wash Sputum Culture - Final Staphylococcus aureus 01/01/25 13:20 Transbronchial Biopsy - Right Lower Lobe Gram Stain - Final 01/01/25 13:20 Transbronchial Biopsy - Right Lower Lobe Surgical Biopsy Culture - Preliminary NO GROWTH AFTER 24 HOURS 01/01/25 13:20 Bronchial Washings - Right Lower Lobe Gram Stain - Final 01/01/25 13:20 Bronchial Lavage - Left Lower Lobe Gram Stain - Final 01/01/25 13:20 Transbronchial Biopsy - Right Lower Lobe - Final 01/01/25 13:20 Transbronchial Biopsy - Right Lower Lobe Acid Fast Bacilli Smear - Final 01/01/25 13:20 Bronchial Lavage - Right Lower Lobe - Final 01/01/25 13:20 Bronchial Lavage - Right Lower Lobe Acid Fast Bacilli Smear - Final 01/01/25 13:20 Bronchial Lavage - Left Lower Lobe - Final 01/01/25 13:20 Bronchial Lavage - Left Lower Lobe Acid Fast Bacilli Smear - Final Constitutional: Present mild distress, cachectic, chronically ill appearing and cooperative Head: Present atraumatic and normocephalic ENT: Present normal exam Respiratory: Present accessory muscle use, prolonged expiratory phase, wheezes, crackles and diminished air movement; Absent rhonchi Cardiac: Present Reg Rate and Rhythm GI: Present soft and normal bowel sounds; Absent distention or tenderness Extremities: Present normal inspection and full ROM Skin: Present intact; Absent erythema Neuro: Present Grossly Intact, alert, awake, oriented x 3 and moves all extremities Assessment and Plan *Assessment and plan (1) Right lower lobe pneumonia: Status: Acute Category: Medical Code(s): J18.9 - Pneumonia, unspecified organism (2) Acute urinary retention: Status: Acute Category: Medical Code(s): R33.8 - Other retention of urine (3) MRSA pneumonia: Status: Acute Category: Medical Code(s): J15.212 - Pneumonia due to Methicillin resistant Staphylococcus aureus (4) Acute respiratory failure with hypoxemia: Status: Acute Category: Medical Code(s): J96.01 - Acute respiratory failure with hypoxia (5) Severe protein-calorie malnutrition: Status: Acute Category: Medical Code(s): E43 - Unspecified severe protein-calorie malnutrition (6) SIADH (syndrome of inappropriate ADH production): Status: Acute Category: Medical Code(s): E22.2 - Syndrome of inappropriate secretion of antidiuretic hormone (7) Hyponatremia: Status: Acute Category: Medical Code(s): E87.1 - Hypo-osmolality and hyponatremia Plan Marisa Kruse is a 64-year-old female with a medical history of COPD, hypertension, extensive smoking history, chronic hyponatremia, CAD presents with progressive functional decline, shortness of breath, productive cough. She was recently discharged about a week ago in stable condition after treatment for right lobar pneumonia. Patient states she did well for a few days at home and finished her course of Augmentin, however over the past few days she became increasingly short of breath, productive cough and profound weakness. She denies chest pain, abdominal pain. Patient at this time is not the best historian given her lethargy workup in the ED significant for WBC 8.1, sodium 125, BNP 2069. CTA revealed extensive right lower lobe pneumonia, hilar adenopathy. CT abdomen/pelvis suggestive of fluid-filled bowels, and severely distended urinary bladder. Showing improvement, on Vapotherm. More interactive today. Still requiring 100% FiO2 however showing improvement clinically. Denies any chest pain. No nausea or vomiting. Problems addressed as follows: #Acute hypoxic respiratory failure #MRSA multifocal pneumonia #Hilar adenopathy ? Initial CTA revealed right lobar pneumonia. No leukocytosis or signs of sepsis at that time. In the setting of tachypnea and tachycardia and persistent pneumonia, concern for sepsis at this time. ? CTA also reveals hilar adenopathy and spoke with pulmonology, likely reactive at this time. However, worth investigating given chronic hyponatremia in 120s, possibly SIADH pending labs. ? Per my review of chest x-ray, has continued improvement of pneumonia, effusion, and edema. -Will diurese with Lasix 40 mg IV once today -Continues to require Vapotherm, 40 L at 100%. More interactive and alert today however. -Endobronchial biopsy pending from lesion noted yesterday. No further bleeding. -Will count 6.4, hemoglobin 8.9. CRP 182, ESR slightly down at 125. -Repeat CBC, CMP, magnesium ordered for the morning -Sputum growing stenotrophomonas and MRSA -Continue Zyvox 600 mg IV twice daily and double strength Bactrim IV twice daily Anemia: Hemoglobin improved to 8.9 today. No active signs of bleeding. transfusion threshold hemoglobin less than 7. #Right heart failure #Elevated BNP ? Initial BNP 1999, with 3+ pitting edema. Likely further exacerbated by protein/nutritional deficiencies. ? ECHO reveals moderate RV dilation, mildly reduced RV function. RVSP 50 to 55 mmHg. Likely from advanced COPD, probable pulmonary hypertension. ?Lasix 40 mg IV once today given increased oxygen requirement. Monitor for improvement with diuresis ? Monitor renal function, electrolytes. Potassium 4.6, BUN 8, creatinine 0.7. # Acute on chronic hyponatremia ? Sodium 125 on admission. Sodium stable at 126, chloride 92. Repeat sodium level every 12 hours. Continue to fluid restrict less than 1500 cc a day. - Consistent with SIADH based on labs earlier this month with urine sodium in the 50s. Inappropriately elevated. - Continue sodium chloride replacement with 1000 mg twice daily p.o. #COPD exacerbation ? Current smoker. COPD seems slightly exacerbated today. ? continue DuoNebs, Pulmicort. Hold Trelegy. #Cognitive decline ? Per patient's brother, patient has had cognitive decline since . He believes that patient is not adequately taking care of herself at home, does not always remember to take her medications, does have boyfriend but he is not around every day. ? Patient is waxing and waning in confusion during hospitalization. Could be hospital-acquired delirium with underlying dementia. ? There is some concern for dementia given progressive cognitive changes. TFTs, B12, folate normal. ? CT head 12/18/2024 shows mild atrophy. #Physical deconditioning #Functional decline #Severe protein calorie malnutrition ? PT/OT consulted, recommended home with home health. ? Will provide high-protein shakes with meals. ? TFTs, B12, folate normal. Follow-up vitamin D. #Urinary retention ? Severely distended bladder on initial CT, s/p Ramos insertion with significant output. ?Ramos replaced 01/01/25 due to failure of spontaneous voiding trial. Will refer to urology as an outpatient #Hypertension: Hold home lisinopril today. #GERD: continue home PPI. Full code DVT prophylaxis: Lovenox 40 mg
[2025-01-03 16:05] LABS: Chloride 87 mmol/L (98-107)
[2025-01-03 16:06] LABS: Potassium 3.7 mmoL/L (3.5-5.1); Sodium 126 mmol/L (136-145)
[2025-01-03 16:09] LABS: Anion Gap 9.7 mEq/L (5-15); Blood Urea Nitrogen 7 mg/dl (7-17); Carbon Dioxide 33 mmol/L (22.0-30.0); Creatinine Clearance Estimated 48 mL/min (50-200); Estimated Glomerular Filt Rate 84 ml/min (>60); GFR (African American) 102 ML/MIN (>60); Glucose 101 mg/dl (74-100)
[2025-01-03] MEDS: ACETYLCYSTEINE 20% 4ML VIAL 2 ML IH (18:30)
[2025-01-03] MEDS: PANTOPRAZOLE 40MG TABLET 40 MG PO (20:00)
[2025-01-04] VITALS (32 sets, daily range): BP systolic 113–153; BP diastolic 51–94; PULSE 80–110; RESP 12–22; TEMP 36.7–37.2; O2SAT 87–97
[2025-01-04] MEDS: IPRATROPIUM/ALBUTEROL 3 ML NEB IH ×6 (02:17→21:33)
[2025-01-04] MEDS: SULFAMETHOXAZOLE/TRIMETHOPRIM 10 ML in DEXTROSE 5 % IN WATER 250 ML 173.333 ML IV ×2 (02:53→13:16)
[2025-01-04 04:59] LABS: POC Glucose,Bedside 122 (70-110)
[2025-01-04 04:59] LABS: POC Glucose,Bedside 91 (70-110)
[2025-01-04 04:59] LABS: POC Glucose,Bedside 90 (70-110)
[2025-01-04 04:59] LABS: POC Glucose,Bedside 87 (70-110)
[2025-01-04 04:59] LABS: POC Glucose,Bedside 98 (70-110)
[2025-01-04 04:59] LABS: POC Glucose,Bedside 98 (70-110)
[2025-01-04 04:59] LABS: POC Glucose,Bedside 82 (70-110)
[2025-01-04 04:59] LABS: POC Glucose,Bedside 126 (70-110)
[2025-01-04] MEDS: BUDESONIDE 0.5MG/2ML NEB 0.5 MG IH ×2 (07:12→18:28)
[2025-01-04] MEDS: ACETYLCYSTEINE 20% 4ML VIAL 2 ML IH ×2 (07:14→18:28)
[2025-01-04 07:56] LABS: POC Glucose,Bedside 105 (70-110)
--- NOTE | 2025-01-04 08:57 | P.PN_ITS ---
Subjective *Date: 01/04/25 *Time: 08:57 Medical Exam Vital signs and Labs for Last 24 Hours: Vital Signs Temp Pulse Pulse Resp BP Pulse Ox O2 Del Method 01/04/25 07:51 93 L Vapotherm 01/04/25 07:51 98.0 F 102 H 18 115/51 L 93 L Vapotherm 01/04/25 07:27 92 L Vapotherm 01/04/25 07:00 Vapotherm 01/04/25 07:00 83 17 87 L 01/04/25 07:00 84 115/51 L 87 L Vapotherm 01/04/25 06:00 91 H 12 88 L 01/04/25 06:00 84 20 127/59 L 92 L Venturi Mask 01/04/25 05:00 82 14 93 L Vapotherm 01/04/25 05:00 129/60 01/04/25 04:59 Vapotherm 01/04/25 04:00 89 93 L Vapotherm 01/04/25 04:00 80 01/04/25 04:00 127/59 L 01/04/25 04:00 98.6 F 83 16 127/59 L 91 L Vapotherm 01/04/25 03:09 93 H 15 92 L 01/04/25 03:09 89 122/63 91 L 01/04/25 03:00 Vapotherm 01/04/25 02:43 80 01/04/25 02:43 83 01/04/25 02:00 122/67 01/04/25 02:00 87 15 122/67 94 L 01/04/25 01:00 89 20 92 L Vapotherm 01/04/25 01:00 139/75 01/04/25 00:44 Vapotherm 01/04/25 00:00 90 01/04/25 00:00 136/66 01/04/25 00:00 91 H 13 93 L Vapotherm 01/04/25 00:00 97 H 97 Vapotherm 01/04/25 00:00 95 01/04/25 00:00 98.6 F 91 H 19 136/66 96 Vapotherm 01/03/25 23:00 88 20 94 L Vapotherm 01/03/25 23:00 136/59 L 01/03/25 23:00 Vapotherm 01/03/25 22:09 80 01/03/25 22:09 83 01/03/25 22:01 132/60 01/03/25 22:01 81 11 L 94 L 01/03/25 22:00 82 14 132/60 96 01/03/25 21:00 87 23 94 L 01/03/25 21:00 144/65 H 01/03/25 20:53 Vapotherm 01/03/25 20:22 Vapotherm 01/03/25 20:00 88 16 97 01/03/25 20:00 142/67 H 01/03/25 20:00 90 01/03/25 20:00 87 96 Vapotherm 01/03/25 20:00 89 20 142/67 H 96 Vapotherm 01/03/25 19:00 152/74 H 01/03/25 19:00 106 H 13 92 L 01/03/25 19:00 Vapotherm 01/03/25 18:59 101 H 18 152/74 H 93 L Vapotherm 01/03/25 18:45 97 H 01/03/25 18:30 93 H 01/03/25 18:00 79 20 93 L 01/03/25 18:00 144/73 H 01/03/25 18:00 98 H 16 144/73 H 96 Vapotherm 01/03/25 17:00 103 H 16 90 L 01/03/25 17:00 153/73 H 01/03/25 17:00 98 H 18 153/73 H 97 Vapotherm 01/03/25 17:00 Vapotherm 01/03/25 16:00 92 H 11 L 93 L 01/03/25 16:00 136/67 01/03/25 16:00 90 L Vapotherm 01/03/25 16:00 90 01/03/25 16:00 89 18 136/67 92 L Vapotherm 01/03/25 15:00 139/71 01/03/25 15:00 89 17 96 01/03/25 15:00 87 16 139/71 96 Vapotherm 01/03/25 14:59 Vapotherm 01/03/25 14:53 92 H 01/03/25 14:53 92 H 01/03/25 14:53 92 L Vapotherm 01/03/25 14:00 143/67 H 01/03/25 14:00 93 H 20 95 01/03/25 14:00 95 H 18 143/67 H 95 Vapotherm 01/03/25 13:00 89 17 93 L 01/03/25 13:00 137/58 L 01/03/25 13:00 95 H 16 137/58 L 93 L Vapotherm 01/03/25 13:00 Vapotherm 01/03/25 12:00 91 H 14 92 L 01/03/25 12:00 136/71 01/03/25 12:00 91 L Vapotherm 01/03/25 12:00 98.2 F 95 H 14 136/71 92 L Vapotherm 01/03/25 12:00 90 01/03/25 11:00 91 H 21 84 L 01/03/25 11:00 129/62 01/03/25 11:00 98 H 16 129/62 89 L Vapotherm 01/03/25 10:52 Vapotherm 01/03/25 10:20 87 01/03/25 10:20 86 01/03/25 10:20 92 L Vapotherm 01/03/25 10:00 125/63 01/03/25 10:00 89 20 85 L 01/03/25 10:00 84 16 125/63 95 Vapotherm 01/03/25 09:00 85 14 92 L 01/03/25 09:00 121/61 01/03/25 09:00 Vapotherm 01/03/25 09:00 83 16 121/61 92 L Vapotherm 01/03/25 09:00 93 L Vapotherm O2 Flow Rate FiO2 01/04/25 07:51 40 100 01/04/25 07:51 40 01/04/25 07:27 40 100 01/04/25 07:00 40 01/04/25 07:00 01/04/25 07:00 40 01/04/25 06:00 01/04/25 06:00 40 01/04/25 05:00 40 01/04/25 05:00 01/04/25 04:59 20 01/04/25 04:00 40 100 01/04/25 04:00 01/04/25 04:00 01/04/25 04:00 40 01/04/25 03:09 01/04/25 03:09 01/04/25 03:00 40 01/04/25 02:43 02/23/25 02:43 01/04/25 02:00 01/04/25 02:00 01/04/25 01:00 40 01/04/25 01:00 01/04/25 00:44 40 01/04/25 00:00 01/04/25 00:00 01/04/25 00:00 40 01/04/25 00:00 40 100 01/04/25 00:00 40 100 01/04/25 00:00 40 01/03/25 23:00 01/03/25 23:00 01/03/25 23:00 40 01/03/25 22:09 01/03/25 22:09 01/03/25 22:01 01/03/25 22:01 01/03/25 22:00 01/03/25 21:00 01/03/25 21:00 01/03/25 20:53 40 100 01/03/25 20:22 40 01/03/25 20:00 01/03/25 20:00 01/03/25 20:00 01/03/25 20:00 40 100 01/03/25 20:00 40 01/03/25 19:00 01/03/25 19:00 01/03/25 19:00 40 01/03/25 18:59 01/03/25 18:45 01/03/25 18:30 01/03/25 18:00 01/03/25 18:00 01/03/25 18:00 40 01/03/25 17:00 01/03/25 17:00 01/03/25 17:00 40 01/03/25 17:00 40 01/03/25 16:00 01/03/25 16:00 01/03/25 16:00 40 100 01/03/25 16:00 01/03/25 16:00 40 01/03/25 15:00 01/03/25 15:00 01/03/25 15:00 40 01/03/25 14:59 40 01/03/25 14:53 01/03/25 14:53 01/03/25 14:53 40 100 01/03/25 14:00 01/03/25 14:00 01/03/25 14:00 40 01/03/25 13:00 01/03/25 13:00 01/03/25 13:00 40 01/03/25 13:00 40 01/03/25 12:00 01/03/25 12:00 01/03/25 12:00 40 100 01/03/25 12:00 40 01/03/25 12:00 01/03/25 11:00 01/03/25 11:00 01/03/25 11:00 40 01/03/25 10:52 40 01/03/25 10:20 01/03/25 10:20 01/03/25 10:20 40 100 01/03/25 10:00 01/03/25 10:00 01/03/25 10:00 40 01/03/25 09:00 01/03/25 09:00 01/03/25 09:00 40 01/03/25 09:00 40 01/03/25 09:00 40 100 Intake and Output 01/03/25 01/04/25 01/04/25 23:59 07:59 15:59 Intake Total 250 / 950 675 / 675 Output Total 600 / 4650 850 / 850 Balance -350 / -3700 -175 / -175 Intake: Intake, Oral Amount 125 / 125 Intake, Total IV Amount 250 / 850 550 / 550 Linezolid 600 mg In 300 ml @ 300 / 300 300 mls/hr IV Q12H [facility] Rx#: [id number] Sulfamethoxazole/Trimethoprim 250 / 250 250 / 250 10 ml In Dextrose 5 % in Water 250 ml @ 173.333 mls/hr IV Q12H [facility] Rx#:[id number] Output: Output, Urine Amount 600 / 2100 850 / 850 Other: Number of Bowel Movements 1 Weight 54.522 kg Patient Weight 01/04/25 23:59 Weight 54.522 kg Laboratory Results - last 24 hr 01/02/25 08:09: POC Glucose 90 01/02/25 14:07: POC Glucose 98 01/02/25 20:56: POC Glucose 126 H 01/03/25 02:04: POC Glucose 91 01/03/25 06:14: Sodium 126 L, Potassium 4.6, Chloride 92 L, Carbon Dioxide 32 H, Anion Gap 6.6, BUN 8, Creatinine 0.70, Estimated Creat Clear 48, Estimated GFR 84, Est GFR ( Amer) 102, Glucose 69 L, Calcium 7.8 L, Magnesium 1.8, Total Bilirubin 0.1 L, AST 24 D, ALT 15, Alkaline Phosphatase 106, Total Protein 5.7 L, Albumin 2.3 L, Globulin 3.4 H, Albumin/Globulin Ratio 0.7 L 01/03/25 08:54: POC Glucose 82 01/03/25 13:39: POC Glucose 87 01/03/25 15:56: Sodium 126 L, Potassium 3.7, Chloride 87 L, Carbon Dioxide 33 H, Anion Gap 9.7, BUN 7, Creatinine 0.70, Estimated Creat Clear 48, Estimated GFR 84, Est GFR ( Amer) 102, Glucose 101 H D, Calcium 8.0 L 01/03/25 20:05: POC Glucose 98 01/04/25 02:39: POC Glucose 122 H 01/04/25 07:46: POC Glucose 105 I & O for Labs for Last 24 Hours: Intake & Output 01/01/25 01/02/25 01/03/25 01/04/25 23:59 23:59 23:59 23:59 Intake Total 1386.722 / 1386.722 759.637 / 759.637 650 / 950 675 / 675 Output Total 1100 / 1200 2200 / 2200 4650 / 4650 850 / 850 Balance 286.722 / 186.722 -1440.363 / -1440.363 -4000 / -3700 -175 / -175 Weight 51.982 kg 52 kg 54.749 kg 54.522 kg Microbiology Reports for the Last 24 Hours: Microbiology 01/01/25 13:20 Bronchial Washings - Right Lower Lobe Gram Stain - Final 01/01/25 13:20 Bronchial Washings - Right Lower Lobe Bronchoalveolar Lavage Culture - Final Staphylococcus aureus 01/01/25 13:20 Transbronchial Biopsy - Right Lower Lobe Gram Stain - Final 01/01/25 13:20 Transbronchial Biopsy - Right Lower Lobe Surgical Biopsy Culture - Preliminary NO GROWTH AFTER 48 HOURS 01/01/25 14:20 Sputum - Endotracheal Wash Gram Stain - Final 01/01/25 14:20 Sputum - Endotracheal Wash Sputum Culture - Final Staphylococcus aureus The patient's infection will respond to the chosen ABx?: Yes (BRONCHIAL WASHINGS, SPUTUM = MRSA, VANCO/LINEZOLID SUSCEPTIBLE.) Is the patient receiving the right drug, dose, and route?: Yes Could a more targeted ABx be ordered?: No How long ABx needed (days)?: 7
[2025-01-04] MEDS: LINEZOLID 600 MG/300 ML IV.SOLN 300 MG IV ×2 (09:01→20:05)
[2025-01-04] MEDS: ENOXAPARIN 40MG/0.4ML SYRINGE 40 MG SUBCUT (09:01)
[2025-01-04] MEDS: NYSTATIN SUSP 500,000 UNITS/5ML UDC 500000 UNIT PO ×3 (09:02→20:05)
[2025-01-04] MEDS: SODIUM CHLORIDE 1,000MG TABLET 1000 MG PO ×2 (09:02→20:05)
--- NOTE | 2025-01-04 09:38 | PC.NURSE ---
labs drawn and sent.
[2025-01-04 09:43] LABS: Basophils % 0.4 % (0.1-2.0); Eosinophils % 0.1 % (0.1-12.0); Hematocrit 28.8 % (37.0-47.0); Hemoglobin 9.5 g/dL (12.2-16.2); Lymphocytes # 0.4 K/mm3 (0.7-4.5); Lymphocytes % 5.1 % (10-50); Mean Corpuscular Hemoglobin 26.8 pg (27.0-31.2); Mean Corpuscular Volume 81.4 fl (81-99); Mean Platelet Volume 9.4 fl (7.4-10.4); Monocytes # 0.5 K/mm3 (0.1-1.0); Monocytes % 6.7 % (1.7-9.3); Neutrophils # 6.7 K/mm3 (1.8-7.8); Neutrophils % 86.8 % (37.0-80.0); Platelet Count 154 K/mm3 (142-424); Red Blood Count 3.54 M/mm3 (4.20-5.40); Red Cell Distribution Width 16.5 % (11.5-17.5); White Blood Count 7.7 K/mm3 (4.8-10.8)
[2025-01-04 09:53] LABS: Albumin Level 2.6 g/dl (3.5-5.0); Chloride 87 mmol/L (98-107); Potassium 3.9 mmoL/L (3.5-5.1); Sodium 125 mmol/L (136-145)
[2025-01-04 09:55] LABS: Blood Urea Nitrogen 7 mg/dl (7-17); Creatinine Clearance Estimated 48 mL/min (50-200); Estimated Glomerular Filt Rate 100 ml/min (>60); GFR (African American) 121 ML/MIN (>60)
[2025-01-04 09:56] LABS: Alanine Aminotransferase 16 U/L (12-78); Albumin/Globulin Ratio 0.7 (1.1-1.8); Alkaline Phosphatase 98 U/L (38-126); Anion Gap 8.9 mEq/L (5-15); Aspartate Amino Transferase 23 U/L (14-36); Bilirubin,Total 0.3 mg/dl (0.2-1.3); Carbon Dioxide 33 mmol/L (22.0-30.0); Globulin 3.5 g/dL (1.3-3.2); Glucose 115 mg/dl (74-100); Magnesium 1.5 mg/dl (1.6-2.3); Total Protein,Serum 6.1 g/dl (6.3-8.2)
--- NOTE | 2025-01-04 10:24 | P.PN_ITS ---
Subjective *Date: 01/04/25 *Time: 12:24 Interval history: Responsive and interactive on exam today. Answering questions appropriately. Alert and oriented x 3. No nausea or vomiting. On Vapotherm 40 L, 100%. Denies chest pain. Tolerating p.o. intake. Medical Exam Vital signs and Labs for Last 24 Hours: Vital Signs Temp Pulse Pulse Resp BP Pulse Ox O2 Del Method 01/04/25 10:00 99 H 18 129/58 L 93 L Vapotherm 01/04/25 09:52 91 H 01/04/25 09:52 92 H 01/04/25 09:52 91 L Vapotherm 01/04/25 09:00 Vapotherm 01/04/25 09:00 90 18 126/62 90 L Vapotherm 01/04/25 07:51 93 L Vapotherm 01/04/25 07:51 98.0 F 102 H 18 115/51 L 93 L Vapotherm 01/04/25 07:27 92 L Vapotherm 01/04/25 07:00 Vapotherm 01/04/25 07:00 83 17 87 L 01/04/25 07:00 84 115/51 L 87 L Vapotherm 01/04/25 06:00 91 H 12 88 L 01/04/25 06:00 84 20 127/59 L 92 L Venturi Mask 01/04/25 05:00 82 14 93 L Vapotherm 01/04/25 05:00 129/60 01/04/25 04:59 Vapotherm 01/04/25 04:00 89 93 L Vapotherm 01/04/25 04:00 80 01/04/25 04:00 127/59 L 01/04/25 04:00 98.6 F 83 16 127/59 L 91 L Vapotherm 01/04/25 03:09 93 H 15 92 L 01/04/25 03:09 89 122/63 91 L 01/04/25 03:00 Vapotherm 01/04/25 02:43 80 01/04/25 02:43 83 01/04/25 02:00 122/67 01/04/25 02:00 87 15 122/67 94 L 01/04/25 01:00 89 20 92 L Vapotherm 01/04/25 01:00 139/75 01/04/25 00:44 Vapotherm 01/04/25 00:00 90 01/04/25 00:00 136/66 01/04/25 00:00 91 H 13 93 L Vapotherm 01/04/25 00:00 97 H 97 Vapotherm 01/04/25 00:00 95 01/04/25 00:00 98.6 F 91 H 19 136/66 96 Vapotherm 01/03/25 23:00 88 20 94 L Vapotherm 01/03/25 23:00 136/59 L 01/03/25 23:00 Vapotherm 01/03/25 22:09 80 01/03/25 22:09 83 01/03/25 22:01 132/60 01/03/25 22:01 81 11 L 94 L 01/03/25 22:00 82 14 132/60 96 01/03/25 21:00 87 23 94 L 01/03/25 21:00 144/65 H 01/03/25 20:53 Vapotherm 01/03/25 20:22 Vapotherm 01/03/25 20:00 88 16 97 01/03/25 20:00 142/67 H 01/03/25 20:00 90 01/03/25 20:00 87 96 Vapotherm 01/03/25 20:00 89 20 142/67 H 96 Vapotherm 01/03/25 19:00 152/74 H 01/03/25 19:00 106 H 13 92 L 01/03/25 19:00 Vapotherm 01/03/25 18:59 101 H 18 152/74 H 93 L Vapotherm 01/03/25 18:45 97 H 01/03/25 18:30 93 H 01/03/25 18:00 79 20 93 L 01/03/25 18:00 144/73 H 01/03/25 18:00 98 H 16 144/73 H 96 Vapotherm 01/03/25 17:00 103 H 16 90 L 01/03/25 17:00 153/73 H 01/03/25 17:00 98 H 18 153/73 H 97 Vapotherm 01/03/25 17:00 Vapotherm 01/03/25 16:00 92 H 11 L 93 L 01/03/25 16:00 136/67 01/03/25 16:00 90 L Vapotherm 01/03/25 16:00 90 01/03/25 16:00 89 18 136/67 92 L Vapotherm 01/03/25 15:00 139/71 01/03/25 15:00 89 17 96 01/03/25 15:00 87 16 139/71 96 Vapotherm 01/03/25 14:59 Vapotherm 01/03/25 14:53 92 H 01/03/25 14:53 92 H 01/03/25 14:53 92 L Vapotherm 01/03/25 14:00 143/67 H 01/03/25 14:00 93 H 20 95 01/03/25 14:00 95 H 18 143/67 H 95 Vapotherm 01/03/25 13:00 89 17 93 L 01/03/25 13:00 137/58 L 01/03/25 13:00 95 H 16 137/58 L 93 L Vapotherm 01/03/25 13:00 Vapotherm 01/03/25 12:00 91 H 14 92 L 01/03/25 12:00 136/71 01/03/25 12:00 91 L Vapotherm 01/03/25 12:00 98.2 F 95 H 14 136/71 92 L Vapotherm 01/03/25 12:00 90 01/03/25 11:00 91 H 21 84 L 01/03/25 11:00 129/62 01/03/25 11:00 98 H 16 129/62 89 L Vapotherm 01/03/25 10:52 Vapotherm O2 Flow Rate FiO2 01/04/25 10:00 40 01/04/25 09:52 01/04/25 09:52 01/04/25 09:52 40 100 01/04/25 09:00 40 01/04/25 09:00 40 01/04/25 07:51 40 100 01/04/25 07:51 40 01/04/25 07:27 40 100 01/04/25 07:00 40 01/04/25 07:00 01/04/25 07:00 40 01/04/25 06:00 01/04/25 06:00 40 01/04/25 05:00 40 01/04/25 05:00 01/04/25 04:59 20 01/04/25 04:00 40 100 01/04/25 04:00 01/04/25 04:00 01/04/25 04:00 40 01/04/25 03:09 01/04/25 03:09 01/04/25 03:00 40 01/04/25 02:43 01/04/25 02:43 01/04/25 02:00 01/04/25 02:00 01/04/25 01:00 40 01/04/25 01:00 01/04/25 00:44 40 01/04/25 00:00 01/04/25 00:00 01/04/25 00:00 40 01/04/25 00:00 40 100 01/04/25 00:00 40 100 01/04/25 00:00 40 01/03/25 23:00 01/03/25 23:00 01/03/25 23:00 40 01/03/25 22:09 01/03/25 22:09 01/03/25 22:01 01/03/25 22:01 01/03/25 22:00 01/03/25 21:00 01/03/25 21:00 01/03/25 20:53 40 100 01/03/25 20:22 40 01/03/25 20:00 01/03/25 20:00 01/03/25 20:00 01/03/25 20:00 40 100 01/03/25 20:00 40 01/03/25 19:00 01/03/25 19:00 01/03/25 19:00 40 01/03/25 18:59 01/03/25 18:45 01/03/25 18:30 01/03/25 18:00 01/03/25 18:00 01/03/25 18:00 40 01/03/25 17:00 01/03/25 17:00 01/03/25 17:00 40 01/03/25 17:00 40 01/03/25 16:00 01/03/25 16:00 01/03/25 16:00 40 100 01/03/25 16:00 01/03/25 16:00 40 01/03/25 15:00 01/03/25 15:00 01/03/25 15:00 40 01/03/25 14:59 40 01/03/25 14:53 01/03/25 14:53 01/03/25 14:53 40 100 01/03/25 14:00 01/03/25 14:00 01/03/25 14:00 40 01/03/25 13:00 01/03/25 13:00 01/03/25 13:00 40 01/03/25 13:00 40 01/03/25 12:00 01/03/25 12:00 01/03/25 12:00 40 100 01/03/25 12:00 40 01/03/25 12:00 01/03/25 11:00 01/03/25 11:00 01/03/25 11:00 40 01/03/25 10:52 40 Intake and Output 01/03/25 01/04/25 01/04/25 23:59 07:59 15:59 Intake Total 250 / 950 675 / 675 Output Total 600 / 4650 850 / 850 Balance -350 / -3700 -175 / -175 Intake: Intake, Oral Amount 125 / 125 Intake, Total IV Amount 250 / 850 550 / 550 Linezolid 600 mg In 300 ml @ 300 / 300 300 mls/hr IV Q12H [facility] Rx#: [id number] Sulfamethoxazole/Trimethoprim 250 / 250 250 / 250 10 ml In Dextrose 5 % in Water 250 ml @ 173.333 mls/hr IV Q12H [facility] Rx#:[id number] Output: Output, Urine Amount 600 / 2100 850 / 850 Other: Number of Bowel Movements 1 Weight 54.522 kg Patient Weight 01/04/25 23:59 Weight 54.522 kg Laboratory Results - last 24 hr 01/02/25 08:09: POC Glucose 90 01/02/25 14:07: POC Glucose 98 01/02/25 20:56: POC Glucose 126 H 01/03/25 02:04: POC Glucose 91 01/03/25 08:54: POC Glucose 82 01/03/25 13:39: POC Glucose 87 01/03/25 15:56: Sodium 126 L, Potassium 3.7, Chloride 87 L, Carbon Dioxide 33 H, Anion Gap 9.7, BUN 7, Creatinine 0.70, Estimated Creat Clear 48, Estimated GFR 84, Est GFR ( Amer) 102, Glucose 101 H D, Calcium 8.0 L 01/03/25 20:05: POC Glucose 98 01/04/25 02:39: POC Glucose 122 H 01/04/25 07:46: POC Glucose 105 01/04/25 09:18: WBC 7.7, RBC 3.54 L, Hgb 9.5 L, Hct 28.8 L, MCV 81.4, MCH 26.8 L , MCHC 33.0, RDW 16.5, Plt Count 154, MPV 9.4, Neut % (Auto) 86.8 H, Lymph % (Auto) 5.1 L, [place] % (Auto) 6.7, Eos % (Auto) 0.1, Baso % (Auto) 0.4, Neut # (Auto) 6.7, Lymph # (Auto) 0.4 L, [place] # (Auto) 0.5, Eos # (Auto) 0.0, Baso # (Auto) 0.0, Sodium 125 L, Potassium 3.9, Chloride 87 L, Carbon Dioxide 33 H, Anion Gap 8.9, BUN 7, Creatinine 0.60, Estimated Creat Clear 48, Estimated GFR 100, Est GFR ( Amer) 121, Glucose 115 H, Calcium 8.0 L, Magnesium 1.5 L D , Total Bilirubin 0.3, AST 23, ALT 16, Alkaline Phosphatase 98, Total Protein 6.1 L, Albumin 2.6 L D, Globulin 3.5 H, Albumin/Globulin Ratio 0.7 L I & O for Labs for Last 24 Hours: Intake & Output 01/01/25 01/02/25 01/03/25 01/04/25 23:59 23:59 23:59 23:59 Intake Total 1386.722 / 1386.722 759.637 / 759.637 650 / 950 675 / 675 Output Total 1100 / 1200 2200 / 2200 4650 / 4650 850 / 850 Balance 286.722 / 186.722 -1440.363 / -1440.363 -4000 / -3700 -175 / -175 Weight 51.982 kg 52 kg 54.749 kg 54.522 kg Microbiology Reports for the Last 24 Hours: Microbiology 01/01/25 13:20 Bronchial Washings - Right Lower Lobe Gram Stain - Final 01/01/25 13:20 Bronchial Washings - Right Lower Lobe Bronchoalveolar Lavage Culture - Final Staphylococcus aureus 01/01/25 13:20 Transbronchial Biopsy - Right Lower Lobe Gram Stain - Final 01/01/25 13:20 Transbronchial Biopsy - Right Lower Lobe Surgical Biopsy Culture - Preliminary NO GROWTH AFTER 48 HOURS 01/01/25 14:20 Sputum - Endotracheal Wash Gram Stain - Final 01/01/25 14:20 Sputum - Endotracheal Wash Sputum Culture - Final Staphylococcus aureus Constitutional: Present mild distress, cachectic, chronically ill appearing and cooperative Head: Present atraumatic and normocephalic ENT: Present normal exam Respiratory: Present prolonged expiratory phase, wheezes, crackles and diminished air movement; Absent accessory muscle use or rhonchi Cardiac: Present Reg Rate and Rhythm GI: Present soft and normal bowel sounds; Absent distention or tenderness Extremities: Present normal inspection and full ROM Skin: Present intact; Absent erythema Neuro: Present Grossly Intact, alert, awake and moves all extremities Comment:: Oriented to self and place. Assessment and Plan *Assessment and plan (1) Right lower lobe pneumonia: Status: Acute Category: Medical Code(s): J18.9 - Pneumonia, unspecified organism (2) Acute urinary retention: Status: Acute Category: Medical Code(s): R33.8 - Other retention of urine (3) MRSA pneumonia: Status: Acute Category: Medical Code(s): J15.212 - Pneumonia due to Methicillin resistant Staphylococcus aureus (4) Acute respiratory failure with hypoxemia: Status: Acute Category: Medical Code(s): J96.01 - Acute respiratory failure with hypoxia (5) Severe protein-calorie malnutrition: Status: Acute Category: Medical Code(s): E43 - Unspecified severe protein-calorie malnutrition (6) SIADH (syndrome of inappropriate ADH production): Status: Acute Category: Medical Code(s): E22.2 - Syndrome of inappropriate secretion of antidiuretic hormone (7) Hyponatremia: Status: Acute Category: Medical Code(s): E87.1 - Hypo-osmolality and hyponatremia Plan Marisa Kruse is a 64-year-old female with a medical history of COPD, hypertension, extensive smoking history, chronic hyponatremia, CAD presents with progressive functional decline, shortness of breath, productive cough. She was recently discharged about a week ago in stable condition after treatment for right lobar pneumonia. Patient states she did well for a few days at home and finished her course of Augmentin, however over the past few days she became increasingly short of breath, productive cough and profound weakness. She denies chest pain, abdominal pain. Patient at this time is not the best historian given her lethargy workup in the ED significant for WBC 8.1, sodium 125, BNP 2069. CTA revealed extensive right lower lobe pneumonia, hilar adenopathy. CT abdomen/pelvis suggestive of fluid-filled bowels, and severely distended urinary bladder. Still requiring Vapotherm. Interactive on exam today. Still requiring 100% FiO2 however showing improvement clinically. Denies any chest pain. No nausea or vomiting. Problems addressed as follows: #Acute hypoxic respiratory failure #MRSA multifocal pneumonia #Hilar adenopathy ? Initial CTA revealed right lobar pneumonia. No leukocytosis or signs of sepsis at that time. In the setting of tachypnea and tachycardia and persistent pneumonia, concern for sepsis at this time. ? CTA also reveals hilar adenopathy and spoke with pulmonology, likely reactive at this time. However, worth investigating given chronic hyponatremia in 120s, possibly SIADH pending labs. -Hold Lasix today -Continues to require Vapotherm, 40 L at 100%. More interactive and alert today however. -Endobronchial biopsy pending. No further bleeding. -White count 7.7, hemoglobin 9.5. -Repeat CBC, CMP, magnesium, ESR and CRP ordered for the morning -Sputum growing stenotrophomonas and MRSA -Continue Zyvox 600 mg IV twice daily and double strength Bactrim IV twice daily Anemia: Hemoglobin improved to 9.5 today. No active signs of bleeding. transfusion threshold hemoglobin less than 7. #Right heart failure #Elevated BNP ? Initial BNP 1999, with 3+ pitting edema. Likely further exacerbated by pro tein/nutritional deficiencies. ? ECHO reveals moderate RV dilation, mildly reduced RV function. RVSP 50 to 55 mmHg. Likely from advanced COPD, probable pulmonary hypertension. ? Impressive response to Lasix yesterday. 140 mg dose IV. Put out 5 L. ? Monitor renal function, electrolytes. Potassium 3.9, magnesium 1.5, BUN 7, creatinine 0.6. # Acute on chronic hyponatremia ? Sodium 125 on admission. Sodium stable at 125, chloride 87. Continue to fluid restrict less than 1500 cc a day. - Consistent with SIADH based on labs earlier this month with urine sodium in the 50s. Inappropriately elevated. - Continue sodium chloride replacement with 1000 mg twice daily p.o. #COPD exacerbation ? Current smoker. COPD seems slightly exacerbated today; continue DuoNebs, Pulmicort. Hold Trelegy. #Cognitive decline ? Per patient's brother, patient has had cognitive decline since . He believes that patient is not adequately taking care of herself at home, does not always remember to take her medications, does have boyfriend but he is not around every day. ? Patient is waxing and waning in confusion during hospitalization. Could be hospital-acquired delirium with underlying dementia. ? There is some concern for dementia given progressive cognitive changes. TFTs, B12, folate normal. ? CT head 12/18/2024 shows mild atrophy. #Physical deconditioning #Functional decline #Severe protein calorie malnutrition ? PT/OT consulted, recommended home with home health; continue to work with patient daily. ? Will provide high-protein shakes with meals. ? TFTs, B12, folate normal. Follow-up vitamin D. #Urinary retention: Severely distended bladder on initial CT, multiple attempts to remove Ramos. Replaced on 01/01 due to failed voiding trial. Will refer to urology as an outpatient #Hypertension: Hold home lisinopril today. #GERD: continue home PPI. Full code DVT prophylaxis: Lovenox 40 mg
[2025-01-04] MEDS: MAGNESIUM SULFATE IN WATER 2 GM/50 ML PIGGYBACK IV ×2 (12:29→13:16)
[2025-01-04] MEDS: PANTOPRAZOLE 40MG TABLET 40 MG PO (20:05)
[2025-01-04 21:51] LABS: ABG HCO3 30.8 mmhg (22.0-26.0); ABG Oxygen Saturation 87 % (90-100); ABG PO2 54.2 mmhg (80-100); ABG TCO2 32.3 mmhg (23-27)
[2025-01-04 21:53] LABS: Allen's Test Acceptable; Oxygen Vapo 40L/100% %
[2025-01-04 21:54] LABS: ABG PCO2 50.8 mmhg (35.0-45.0); Source Left Radial
--- NOTE | 2025-01-04 23:28 | XR_ITS ---
PROCEDURE INFORMATION: Exam: XR Chest Exam date and time: 01/04/2025 11:29 PM Age: 64 years old Clinical indication: Shortness of breath; Additional info: Worsening SOB TECHNIQUE: Imaging protocol: Radiologic exam of the chest. Views: 1 view. COMPARISON: CR XR CHEST PORTABLE 01/03/2025 1:09 PM FINDINGS: Lungs: Stable bilateral interstitial opacities. Pleural spaces: Small bilateral pleural effusions. Heart/Mediastinum: Unremarkable. No cardiomegaly. Bones/joints: Right shoulder arthroplasty. Lumbar stabilization hardware. IMPRESSION: 1. Stable bilateral interstitial opacities. 2. Small bilateral pleural effusions.
[2025-01-05] VITALS (42 sets, daily range): BP systolic 115–181; BP diastolic 49–91; PULSE 80–108; RESP 11–23; TEMP 36.6–37; O2SAT 87–97; BMI 18.2
[2025-01-05] MEDS: FUROSEMIDE 40MG/4ML VIAL 20 MG IV (00:04)
[2025-01-05] MEDS: IPRATROPIUM/ALBUTEROL 3 ML NEB IH ×6 (02:22→21:35)
[2025-01-05] MEDS: SULFAMETHOXAZOLE/TRIMETHOPRIM 10 ML in DEXTROSE 5 % IN WATER 250 ML 173.333 ML IV ×2 (02:57→15:46)
[2025-01-05 03:19] LABS: POC Glucose,Bedside 115 (70-110)
[2025-01-05] MEDS: ACETYLCYSTEINE 20% 4ML VIAL 2 ML IH ×2 (06:07→17:34)
[2025-01-05] MEDS: BUDESONIDE 0.5MG/2ML NEB 0.5 MG IH ×2 (06:07→17:34)
[2025-01-05 07:08] LABS: C-Reactive Protein 230.1 mg/L (0-4)
[2025-01-05 07:18] LABS: Erythrocyte Sedimentation Rate > 140 mm/hr (0-30)
[2025-01-05 07:42] LABS: Basophils % 0.4 % (0.1-2.0); Eosinophils % 0.1 % (0.1-12.0); Hematocrit 28.8 % (37.0-47.0); Hemoglobin 9.3 g/dL (12.2-16.2); Lymphocytes # 0.4 K/mm3 (0.7-4.5); Lymphocytes % 4.8 % (10-50); Mean Corpuscular HGB Conc 32.3 g/dL (31.8-35.4); Mean Corpuscular Hemoglobin 26.5 pg (27.0-31.2); Mean Corpuscular Volume 82.1 fl (81-99); Mean Platelet Volume 9.6 fl (7.4-10.4); Monocytes # 0.5 K/mm3 (0.1-1.0); Monocytes % 6.8 % (1.7-9.3); Neutrophils # 6.7 K/mm3 (1.8-7.8); Neutrophils % 87.1 % (37.0-80.0); Platelet Count 147 K/mm3 (142-424); Red Blood Count 3.51 M/mm3 (4.20-5.40); White Blood Count 7.7 K/mm3 (4.8-10.8)
[2025-01-05 08:03] LABS: Chloride 85 mmol/L (98-107)
[2025-01-05 08:04] LABS: Albumin Level 2.2 g/dl (3.5-5.0); Potassium 3.6 mmoL/L (3.5-5.1); Sodium 126 mmol/L (136-145)
[2025-01-05 08:06] LABS: Alanine Aminotransferase 15 U/L (12-78); Albumin/Globulin Ratio 0.7 (1.1-1.8); Anion Gap 8.6 mEq/L (5-15); Aspartate Amino Transferase 21 U/L (14-36); Blood Urea Nitrogen 6 mg/dl (7-17); Carbon Dioxide 36 mmol/L (22.0-30.0); Creatinine Clearance Estimated 44 mL/min (50-200); Estimated Glomerular Filt Rate 124 ml/min (>60); GFR (African American) 150 ML/MIN (>60); Globulin 3.2 g/dL (1.3-3.2); Total Protein,Serum 5.4 g/dl (6.3-8.2)
[2025-01-05 08:07] LABS: Alkaline Phosphatase 117 U/L (38-126); Bilirubin,Total 0.2 mg/dl (0.2-1.3); Calcium 7.6 mg/dl (8.4-10.2); Glucose 78 mg/dl (74-100); Magnesium 1.9 mg/dl (1.6-2.3)
[2025-01-05 08:46] LABS: POC Glucose,Bedside 133 (70-110)
[2025-01-05] MEDS: LINEZOLID 600 MG/300 ML IV.SOLN 300 MG IV (09:17)
[2025-01-05] MEDS: NYSTATIN SUSP 500,000 UNITS/5ML UDC 500000 UNIT PO ×4 (09:17→20:13)
[2025-01-05] MEDS: ENOXAPARIN 40MG/0.4ML SYRINGE 40 MG SUBCUT (09:17)
[2025-01-05] MEDS: SODIUM CHLORIDE 1,000MG TABLET 1000 MG PO ×2 (09:18→20:14)
--- NOTE | 2025-01-05 09:55 | EXP.PULM.PN ---
Subjective *Date: 01/05/25 *Time: 11:44 Interval history: No acute respiratory events over the weekend. Patient denies any new respiratory complaints. Pulmonology Exam Inpatient Vital signs and Labs for Last 24 Hours: Temp Pulse Resp BP Pulse Ox O2 Del Method O2 Flow Rate 97.9 F 95 H 14 132/65 96 Non-Rebreather, Vapotherm 40 01/05/25 04:00 01/05/25 09:42 01/05/25 09:00 01/05/25 09:00 01/05/25 09:42 01/05/25 09:17 01/05/25 09:42 FiO2 100 01/05/25 09:42 Laboratory Results - last 24 hr 01/04/25 09:18: Carbon Dioxide 33 H, Anion Gap 8.9, BUN 7, Creatinine 0.60, Estimated Creat Clear 48, Estimated GFR 100, Est GFR ( Amer) 121, Glucose 115 H, Calcium 8.0 L, Magnesium 1.5 L D, Total Bilirubin 0.3, AST 23, ALT 16, Alkaline Phosphatase 98, Total Protein 6.1 L, Globulin 3.5 H, Albumin/Globulin Ratio 0.7 L 01/04/25 21:50: Specimen Source Left radial, O2 % Vapo 40l/100%, ABG pH 7.40, ABG pCO2 50.8 H, ABG pO2 54.2 L, ABG HCO3 30.8 H, ABG Total CO2 32.3 H, ABG O2 Saturation 87 L*, ABG Base Excess 6.0 H, Emigdio Test Acceptable 01/05/25 03:07: POC Glucose 115 H 01/05/25 05:35: WBC 7.7, RBC 3.51 L, Hgb 9.3 L, Hct 28.8 L, MCV 82.1, MCH 26.5 L, MCHC 32.3, RDW 17.0, Plt Count 147, MPV 9.6, Neut % (Auto) 87.1 H, Lymph % (Auto) 4.8 L, [place] % (Auto) 6.8, Eos % (Auto) 0.1, Baso % (Auto) 0.4, Neut # (Auto) 6.7, Lymph # (Auto) 0.4 L, [place] # (Auto) 0.5, Eos # (Auto) 0.0, Baso # (Auto) 0.0, ESR > 140 H, Sodium 126 L, Potassium 3.6, Chloride 85 L, Carbon Dioxide 36 H, Anion Gap 8.6, BUN 6 L, Creatinine 0.50 L, Estimated Creat Clear 44, Estimated GFR 124, Est GFR ( Amer) 150 D, Glucose 78 D, Calcium 7.6 L, Magnesium 1.9 D, Total Bilirubin 0.2, AST 21, ALT 15, Alkaline Phosphatase 117, C-Reactive Protein 230.1 H, Total Protein 5.4 L, Albumin 2.2 L D, Globulin 3.2, Albumin/Globulin Ratio 0.7 L 01/05/25 08:38: POC Glucose 133 H I & O for Labs for Last 24 Hours: Intake & Output 01/02/25 01/03/25 01/04/25 01/05/25 23:59 23:59 23:59 23:59 Intake Total 759.637 / 759.637 650 / 950 1465 / 1465 Output Total 2200 / 2200 4650 / 4650 2650 / 2650 1720 / 1720 Balance -1440.363 / -1440.363 -4000 / -3700 -1185 / -1185 -1720 / -1720 Weight 114 lb 10.246 oz 120 lb 11.2 oz 120 lb 3.2 oz 109 lb 6.4 oz Microbiology Reports for the Last 24 Hours: Microbiology 01/01/25 13:20 Bronchial Lavage - Left Lower Lobe Gram Stain - Final 01/01/25 13:20 Bronchial Lavage - Left Lower Lobe Bronchoalveolar Lavage Culture - Preliminary Staphylococcus aureus Stenotrophomonas maltophilia 01/01/25 13:20 Transbronchial Biopsy - Right Lower Lobe Gram Stain - Final 01/01/25 13:20 Transbronchial Biopsy - Right Lower Lobe Surgical Biopsy Culture - Preliminary NO GROWTH AFTER 72 HOURS 01/01/25 13:20 Bronchial Washings - Right Lower Lobe Gram Stain - Final 01/01/25 13:20 Bronchial Washings - Right Lower Lobe Bronchoalveolar Lavage Culture - Final Staphylococcus aureus Constitutional: Present severe distress Comment:: Intubated and Sedated Head: Present normocephalic and atraumatic Neck: Present normal inspection and trachea midline Respiratory: Present patient mechanically ventilated, prolonged expiratory phase, rhonchi, wheezes, diminished air movement and able to speak in complete sentences Cardiac: Present S1/S2 and Tachycardia GI: Present soft; Absent distention or tenderness Skin: Present intact; Absent cyanosis Neuro: Present alert, awake and oriented x 3 Extremities: Present normal inspection; Absent clubbing or cyanosis Psychiatric: Present normal affect Assessment and Plan *Assessment and plan (1) Right lower lobe pneumonia: Status: Acute Category: Medical Code(s): J18.9 - Pneumonia, unspecified organism (2) Acute respiratory failure with hypoxemia: Status: Acute Category: Medical Code(s): J96.01 - Acute respiratory failure with hypoxia (3) Unresolved pneumonia: Status: Acute Category: Medical Code(s): J18.9 - Pneumonia, unspecified organism (4) MRSA pneumonia: Status: Acute Category: Medical Code(s): J15.212 - Pneumonia due to Methicillin resistant Staphylococcus aureus Plan Ms. Kruse is a 64-year-old female with reported history of COPD hypertension CAD chronic hyponatremia recently discharged from the hospital for right lobar pneumonia on Augmentin presented with worsening respiratory distress found be hypotensive needing vasopressor support and pulmonary was called for further evaluation and management. Patient during her recent admission found to be having the right lower lobe dense consolidative changes, initiated on ceftriaxone and azithromycin on admission, discharged home on Augmentin. Current smoker greater than 30 PPD. At baseline not using oxygen supplementation during the daytime until most recent discharge. Prescribed nocturnal oxygen supplementation however has not been compliant. Chest x-ray from this morning continue to show right lower lobe airspace disease that appeared to be improved on recent admission. CTA upon admission evidence of pulmonary embolism. Continued symptoms of right lower lobe consolidative changes. No sputum cultures available from recent admission. Mild neutrophilic predominant leukocytosis. Comprehensive respiratory viral PCR panel negative Repeat CT chest reviewed, worsening right lower lobe consolidative changes and a small right effusion. Sputum Cultures MRSA on vancomycin, changed to Linezolid Status post bronchoscopy with copious amount of mucoid secretions. Concerning right lower lobe endobronchial lesion status post biopsy. Repeat sputum cultures grew stenotrophomonas along with MRSA, initiated on Bactrim along with continuation of linezolid. Repeat bronc and tracheal aspirate cultures continue to show MRSA Interval Update: No significant improvement in patient's oxygen status of the weekend. Continue to be needing high flow nasal cannula 40 L 100%. Appears very weak. She continue to receive linezolid and Bactrim Plan: PT OT consult. Out of bed to chair. Activity as tolerated. Continue chest percussion therapy along with Mucomyst twice daily Incentive spirometry and flutter valve Continue oxygen supplementation to maintain O2 saturation goal of 90% and above. Currently high flow nasal cannula 40 L 100%. DuoNebs every 6 hours along with Pulmicort Q12 scheduled Continue linezolid and Bactrim pending final bronchoscopy results (Initiated on vancomycin 12/25/2024 which was eventually changed to linezolid /initiated on Bactrim on 2024 for stenotrophomonas pneumonia) Follow-up with CTA PE Protocol to evaluate for other possible etiology patient nonresolving pneumonia and also to evaluate for bilateral effusions and the need for chest tube. She continue to receive diuretics with net negative volume status. Will follow.
--- NOTE | 2025-01-05 10:55 | CT_ITS ---
FINAL REPORT TECHNIQUE: Postcontrast axial images of the chest were performed in a CTA protocol. This study was performed with techniques to keep radiation doses as low as reasonably achievable, (ALARA). Individualized dose reduction technique using automated exposure control or adjustment of mA and/or kV according to the patient's size were employed. CLINICAL HISTORY: Hypoxia COMPARISON: 12/25/2024 FINDINGS: The heart is normal in size. No adenopathy is identified. No pericardial effusion is identified. The thoracic aorta is normal in caliber with no focal aneurysm or dissection identified. There is no filling defect to suggest pulmonary embolism. There is advanced atelectasis in the lower lobes which would obscure right lower lobe pneumonia seen on prior exam. There is minimal patchy airspace opacity in the left lower lobe suspicious for pneumonia. Interstitial prominence is seen suggestive of mild edema. There are moderate bilateral pleural effusions which have increased. IMPRESSION: No evidence for PE on this exam. New left upper lobe pneumonia. Significant bilateral lower lobe atelectasis with new pleural effusions, underlying CHF suspected. Reviewed, Interpreted and Dictated by Sunni Quesada MD Transcribed by Janie Live Authenticated and [facility]
--- NOTE | 2025-01-05 11:00 | DIET.NUTRFU ---
Nursing reported po intake for 01/04: eggs and boost for breakfast, refused boost for lunch, consumed a couple green beans and for dinner ate few bites of fish and green beans. Continues to have poor po intake. Boost breeze on all trays for extra calories and protein- she reports she dislikes milk based supplements. May benefit from placement
[2025-01-05] MEDS: SODIUM CHLORIDE 0.9% 10ML SYR (RAD ONLY) 10 ML IV (12:53)
[2025-01-05] MEDS: IOPAMIDOL-370 (76%);100ML BOTTLE 70 ML IV (12:53)
[2025-01-05] MEDS: 0.9 % SODIUM CHLORIDE 50 ML VIAL IV (12:53)
[2025-01-05 14:12] LABS: POC Glucose,Bedside 83 (70-110)
[2025-01-05] MEDS: predniSONE 20MG TAB 40 MG PO (15:46)
[2025-01-05] MEDS: BUMETANIDE 1MG/4ML VIAL 1 MG IV (18:14)
--- NOTE | 2025-01-05 19:32 | P.PN_ITS ---
Subjective *Date: 01/05/25 *Time: 22:03 Interval history: Alert but disoriented to location and situation. Continues to require 100% Vapotherm. Afebrile. No nausea or vomiting. Tolerating p.o. intake. Afebrile. Administered 20 mg of Lasix overnight, having good response with negative at least 1 L by morning. Denies chest pain. Medical Exam Vital signs and Labs for Last 24 Hours: Vital Signs Temp Pulse Pulse Resp BP Pulse Ox O2 Del Method 01/05/25 19:19 Vapotherm 01/05/25 19:00 104 H 14 146/72 H 93 L Vapotherm 01/05/25 18:23 107 H 16 143/80 H 88 L Vapotherm 01/05/25 18:00 102 H 16 181/91 H 87 L Vapotherm 01/05/25 17:35 105 H 01/05/25 17:35 105 H 20 01/05/25 17:35 108 H 01/05/25 17:35 91 L Vapotherm 01/05/25 17:28 Vapotherm 01/05/25 17:24 92 L Vapotherm 01/05/25 17:00 88 19 164/81 H 90 L Vapotherm 01/05/25 16:45 96 H 92 L Vapotherm 01/05/25 16:13 90 01/05/25 16:00 96 H 15 155/81 H 93 L Vapotherm 01/05/25 15:50 Vapotherm 01/05/25 15:00 93 H 18 137/80 94 L Vapotherm 01/05/25 14:45 18 01/05/25 14:00 99 H 20 121/74 91 L Vapotherm 01/05/25 13:31 Non-Rebreather, Vapotherm 01/05/25 13:10 96 H 18 131/58 L 90 L 01/05/25 13:00 92 H 01/05/25 13:00 93 H 01/05/25 12:00 94 H 15 122/60 90 L Non-Rebreather, Vapotherm 01/05/25 12:00 93 H 90 L Non-Rebreather, Vapotherm 01/05/25 12:00 90 01/05/25 11:00 Non-Rebreather, Vapotherm 01/05/25 11:00 Non-Rebreather, Vapotherm 01/05/25 11:00 99 H 16 121/53 L 90 L Non-Rebreather, Vapotherm 01/05/25 10:00 96 H 14 131/61 96 Non-Rebreather, Vapotherm 01/05/25 10:00 Non-Rebreather, Vapotherm 01/05/25 09:42 95 H 01/05/25 09:42 97 H 01/05/25 09:42 96 01/05/25 09:17 Non-Rebreather, Vapotherm 01/05/25 09:00 Non-Rebreather, Vapotherm 01/05/25 09:00 96 H 14 132/65 94 L Non-Rebreather, Vapotherm 01/05/25 08:40 96 Non-Rebreather, Vapotherm 01/05/25 08:00 90 01/05/25 08:00 91 H 17 116/52 L 94 L Non-Rebreather, Vapotherm 01/05/25 07:30 103 H 90 L Non-Rebreather, Vapotherm 01/05/25 07:00 81 13 115/49 L 89 L Non-Rebreather, Vapotherm 01/05/25 06:30 Non-Rebreather, Vapotherm 01/05/25 06:13 81 01/05/25 06:13 83 01/05/25 06:13 90 L Vapotherm 01/05/25 06:00 118/53 L 01/05/25 06:00 83 13 88 L Non-Rebreather, Vapotherm 01/05/25 05:00 84 13 87 L Non-Rebreather, Vapotherm 01/05/25 05:00 118/52 L 01/05/25 05:00 Non-Rebreather, Vapotherm 01/05/25 04:11 80 01/05/25 04:00 86 88 L Non-Rebreather, Vapotherm 01/05/25 04:00 97.9 F 125/53 L 01/05/25 04:00 87 14 89 L Non-Rebreather, Vapotherm 01/05/25 03:00 Vapotherm 01/05/25 03:00 120/56 L 01/05/25 03:00 93 H 12 91 L Non-Rebreather, Vapotherm 01/05/25 02:24 96 H 01/05/25 02:23 97 H 01/05/25 02:00 96 H 16 90 L Non-Rebreather, Vapotherm 01/05/25 02:00 136/63 01/05/25 01:00 89 12 89 L 01/05/25 01:00 124/59 L 01/05/25 01:00 Non-Rebreather, Vapotherm 01/05/25 00:29 89 13 90 L 01/05/25 00:29 124/66 01/05/25 00:23 100 H 01/05/25 00:00 98.5 F 96 H 17 90 L Non-Rebreather, Vapotherm 01/05/25 00:00 117/60 01/05/25 00:00 91 H 89 L Non-Rebreather, Vapotherm 01/04/25 23:00 96 H 18 87 L Non-Rebreather, Vapotherm 01/04/25 23:00 130/62 01/04/25 23:00 Non-Rebreather, Vapotherm 01/04/25 22:00 94 H 17 87 L Non-Rebreather, Vapotherm 01/04/25 22:00 137/56 L 01/04/25 21:33 98 H 01/04/25 21:33 101 H 01/04/25 21:01 109 H 21 89 L Vapotherm 01/04/25 21:01 136/66 01/04/25 20:44 Vapotherm 01/04/25 20:12 100 H 01/04/25 20:00 98.9 F 107 H 22 92 L Vapotherm 01/04/25 20:00 151/74 H 01/04/25 20:00 104 H 92 L Vapotherm O2 Flow Rate FiO2 01/05/25 19:19 40 01/05/25 19:00 40 01/05/25 18:23 40 01/05/25 18:00 40 01/05/25 17:35 01/05/25 17:35 01/05/25 17:35 01/05/25 17:35 40 100 01/05/25 17:28 40 01/05/25 17:24 40 100 01/05/25 17:00 40 01/05/25 16:45 40 100 01/05/25 16:13 01/05/25 16:00 40 01/05/25 15:50 40 01/05/25 15:00 40 01/05/25 14:45 01/05/25 14:00 40 01/05/25 13:31 01/05/25 13:10 01/05/25 13:00 01/05/25 13:00 01/05/25 12:00 01/05/25 12:00 30 100 01/05/25 12:00 01/05/25 11:00 01/05/25 11:00 30 100 01/05/25 11:00 30 01/05/25 10:00 40 01/05/25 10:00 40 100 01/05/25 09:42 01/05/25 09:42 01/05/25 09:42 40 01/05/25 09:17 40 01/05/25 09:00 40 100 01/05/25 09:00 40 01/05/25 08:40 40 100 01/05/25 08:00 01/05/25 08:00 40 01/05/25 07:30 40 100 01/05/25 07:00 40 01/05/25 06:30 40 01/05/25 06:13 01/05/25 06:13 01/05/25 06:13 40 100 01/05/25 06:00 01/05/25 06:00 40 01/05/25 05:00 40 01/05/25 05:00 01/05/25 05:00 40 01/05/25 04:11 01/05/25 04:00 40 100 01/05/25 04:00 01/05/25 04:00 40 01/05/25 03:00 40 01/05/25 03:00 01/05/25 03:00 40 01/05/25 02:24 01/05/25 02:23 01/05/25 02:00 40 01/05/25 02:00 01/05/25 01:00 01/05/25 01:00 01/05/25 01:00 40 01/05/25 00:29 01/05/25 00:29 01/05/25 00:23 01/05/25 00:00 40 01/05/25 00:00 01/05/25 00:00 40 100 01/04/25 23:00 40 01/04/25 23:00 01/04/25 23:00 40 01/04/25 22:00 40 01/04/25 22:00 01/04/25 21:33 01/04/25 21:33 01/04/25 21:01 40 01/04/25 21:01 01/04/25 20:44 40 01/04/25 20:12 01/04/25 20:00 40 01/04/25 20:00 01/04/25 20:00 40 100 Intake and Output 01/05/25 01/05/25 01/05/25 07:59 15:59 23:59 Intake Total 300 / 810 510 / 810 Output Total 1600 / 2215 340 / 2215 275 / 2215 Balance -1600 / -1405 -40 / -1405 235 / -1405 Intake: Intake, Oral Amount 260 / 260 Intake, Total IV Amount 300 / 550 250 / 550 Linezolid 600 mg In 300 ml @ 300 / 300 300 mls/hr IV Q12H ROMULO Rx#: [id number] Sulfamethoxazole/Trimethoprim 250 / 250 10 ml In Dextrose 5 % in Water 250 ml @ 173.333 mls/hr IV Q12H ROMULO Rx#:[id number] Output: Output, Urine Amount 220 / 495 275 / 495 Output, Urine Amount (Catheter) 1600 / 1720 120 / 1720 Ramos 1600 / 1720 120 / 1720 Other: Number of Unmeasured Voids 0 0 Weight 49.623 kg Patient Weight 01/05/25 23:59 Weight 49.623 kg Laboratory Results - last 24 hr 01/04/25 21:50: Specimen Source Left radial, O2 % Vapo 40l/100%, ABG pH 7.40, ABG pCO2 50.8 H, ABG pO2 54.2 L, ABG HCO3 30.8 H, ABG Total CO2 32.3 H, ABG O2 Saturation 87 L*, ABG Base Excess 6.0 H, Emigdio Test Acceptable 01/05/25 03:07: POC Glucose 115 H 01/05/25 05:35: WBC 7.7, RBC 3.51 L, Hgb 9.3 L, Hct 28.8 L, MCV 82.1, MCH 26.5 L , MCHC 32.3, RDW 17.0, Plt Count 147, MPV 9.6, Neut % (Auto) 87.1 H, Lymph % (Auto) 4.8 L, [place] % (Auto) 6.8, Eos % (Auto) 0.1, Baso % (Auto) 0.4, Neut # (Auto) 6.7, Lymph # (Auto) 0.4 L, [place] # (Auto) 0.5, Eos # (Auto) 0.0, Baso # (Auto) 0.0, ESR > 140 H, Sodium 126 L, Potassium 3.6, Chloride 85 L, Carbon Dioxide 36 H, Anion Gap 8.6, BUN 6 L, Creatinine 0.50 L, Estimated Creat Clear 44, Estimated GFR 124, Est GFR ( Amer) 150 D, Glucose 78 D, Calcium 7.6 L, Magnesium 1.9 D, Total Bilirubin 0.2, AST 21, ALT 15, Alkaline Phosphatase 117, C-Reactive Protein 230.1 H, Total Protein 5.4 L, Albumin 2.2 L D, Globulin 3.2, Albumin/Globulin Ratio 0.7 L 01/05/25 08:38: POC Glucose 133 H 01/05/25 14:04: POC Glucose 83 I & O for Labs for Last 24 Hours: Intake & Output 01/02/25 01/03/25 01/04/25 01/05/25 23:59 23:59 23:59 23:59 Intake Total 759.637 / 759.637 650 / 950 1465 / 1465 810 / 810 Output Total 2200 / 2200 4650 / 4650 2650 / 2650 2215 / 2215 Balance -1440.363 / -1440.363 -4000 / -3700 -1185 / -1185 -1405 / -1405 Weight 52 kg 54.749 kg 54.522 kg 49.623 kg Microbiology Reports for the Last 24 Hours: Microbiology 01/01/25 13:20 Transbronchial Biopsy - Right Lower Lobe Gram Stain - Final 01/01/25 13:20 Transbronchial Biopsy - Right Lower Lobe Surgical Biopsy Culture - Preliminary NO GROWTH AFTER 4 DAYS 01/01/25 13:20 Bronchial Lavage - Left Lower Lobe Gram Stain - Final 01/01/25 13:20 Bronchial Lavage - Left Lower Lobe Bronchoalveolar Lavage Culture - Preliminary Staphylococcus aureus Stenotrophomonas maltophilia Constitutional: Present mild distress, cachectic, chronically ill appearing and cooperative Head: Present atraumatic and normocephalic ENT: Present normal exam Respiratory: Present prolonged expiratory phase, wheezes, crackles and diminished air movement; Absent accessory muscle use or rhonchi Cardiac: Present Reg Rate and Rhythm GI: Present soft and normal bowel sounds; Absent distention or tenderness Extremities: Present normal inspection and full ROM Skin: Present intact; Absent erythema Neuro: Present Grossly Intact, alert, awake and moves all extremities Comment:: Oriented to self and place. Assessment and Plan *Assessment and plan (1) Right lower lobe pneumonia: Status: Acute Category: Medical Code(s): J18.9 - Pneumonia, unspecified organism (2) Acute urinary retention: Status: Acute Category: Medical Code(s): R33.8 - Other retention of urine (3) MRSA pneumonia: Status: Acute Category: Medical Code(s): J15.212 - Pneumonia due to Methicillin resistant Staphylococcus aureus (4) Acute respiratory failure with hypoxemia: Status: Acute Category: Medical Code(s): J96.01 - Acute respiratory failure with hypoxia (5) Severe protein-calorie malnutrition: Status: Acute Category: Medical Code(s): E43 - Unspecified severe protein-calorie malnutrition (6) SIADH (syndrome of inappropriate ADH production): Status: Acute Category: Medical Code(s): E22.2 - Syndrome of inappropriate secretion of antidiuretic hormone (7) Hyponatremia: Status: Acute Category: Medical Code(s): E87.1 - Hypo-osmolality and hyponatremia Plan Marisa Kruse is a 64-year-old female with a medical history of COPD, hypertension, extensive smoking history, chronic hyponatremia, CAD presents with progressive functional decline, shortness of breath, productive cough. She was recently discharged about a week ago in stable condition after treatment for right lobar pneumonia. Patient states she did well for a few days at home and finished her course of Augmentin, however over the past few days she became increasingly short of breath, productive cough and profound weakness. She denies chest pain, abdominal pain. Patient at this time is not the best historian given her lethargy workup in the ED significant for WBC 8.1, sodium 125, BNP 2070. CTA revealed extensive right lower lobe pneumonia, hilar adenopathy. CT abdomen/pelvis suggestive of fluid-filled bowels, and severely distended urinary bladder. Still requiring Vapotherm. Interactive on exam today. Still requiring 100% FiO2 however showing improvement clinically. Denies any chest pain. No nausea or vomiting. Problems addressed as follows: #Acute hypoxic respiratory failure #MRSA multifocal pneumonia #Hilar adenopathy ? Initial CTA revealed right lobar pneumonia. No leukocytosis or signs of sepsis at that time. In the setting of tachypnea and tachycardia and persistent pneumonia, concern for sepsis at this time. ? Patient continues to be confused. Will continue supplemental oxygen to maintain goal sats greater 90%. Discussed case with pulmonology today, continue high flow nasal cannula. Continue DuoNebs every 6 hours along with Pulmicort twice daily. - Will continue Zyvox twice daily (today is day 8) and Bactrim double strength twice daily pending final bronchoscopy results. - Repeat CTA PE today to evaluate for possible other etiologies for persistent high oxygen requirement. CT does reveal effusions, and possible new left upper airspace disease. -Continue diuretics with Lasix 40 mg IV daily, has responded well to this dose over the weekend -ABG this morning with pH 7.4, pCO2 50, pO2 54 -White count remains normal at 7.7. Hemoglobin 9.3. Inflammatory markers elevated with CRP of 230 and ESR greater than 140. -Sputum growing stenotrophomonas and MRSA Anemia: Hemoglobin stable at 9.3. No active signs of bleeding. transfusion threshold hemoglobin less than 7. #Right heart failure #Elevated BNP ? Initial BNP 2000, with 3+ pitting edema. Likely further exacerbated by protein/nutritional deficiencies. ? ECHO reveals moderate RV dilation, mildly reduced RV function. RVSP 50 to 55 mmHg. Likely from advanced COPD, probable pulmonary hypertension. ? Impressive response to Lasix over weekend. Continue 40 mg IV daily. ? Monitor renal function, electrolytes. Potassium 3.6 magnesium 1.9, BUN 6, creatinine 0.5 # Acute on chronic hyponatremia ? Sodium 125 on admission. Sodium stable at 126, chloride 85. Continue to fluid restrict less than 1500 cc a day. - Consistent with SIADH based on labs earlier this month with urine sodium in the 50s. Inappropriately elevated. - Continue sodium chloride replacement with 1000 mg twice daily p.o. #COPD exacerbation ? Current smoker. COPD seems slightly exacerbated today; continue DuoNebs, Pulmicort. Hold Trelegy. #Cognitive decline ? Per patient's brother, patient has had cognitive decline since Thanks. He believes that patient is not adequately taking care of herself at home, does not always remember to take her medications, does have boyfriend but he is not around every day. ? Patient is waxing and waning in confusion during hospitalization. Could be hospital-acquired delirium with underlying dementia. ? There is some concern for dementia given progressive cognitive changes. TFTs, B12, folate normal. ? CT head 12/18/2024 shows mild atrophy. #Physical deconditioning #Functional decline #Severe protein calorie malnutrition ? PT/OT consulted, recommended home with home health; continue to work with patient daily. ? Will provide high-protein shakes with meals. ? TFTs, B12, folate normal. Follow-up vitamin D. #Urinary retention: Severely distended bladder on initial CT, multiple attempts to remove Ramos. Replaced on 01/01 due to failed voiding trial. Will refer to urology as an outpatient #Hypertension: Hold home lisinopril today. #GERD: continue home PPI. Full code DVT prophylaxis: Lovenox 40 mg
[2025-01-05] MEDS: PANTOPRAZOLE 40MG TABLET 40 MG PO (20:14)
[2025-01-06] VITALS (44 sets, daily range): BP systolic 113–160; BP diastolic 46–82; PULSE 66–100; RESP 11–25; TEMP 35.6–36.6; O2SAT 81–97; BMI 19.3
[2025-01-06] MEDS: IPRATROPIUM/ALBUTEROL 3 ML NEB IH ×6 (01:45→22:14)
[2025-01-06] MEDS: SULFAMETHOXAZOLE/TRIMETHOPRIM 10 ML in DEXTROSE 5 % IN WATER 250 ML 173.333 ML IV ×2 (02:58→14:13)
[2025-01-06] MEDS: BUDESONIDE 0.5MG/2ML NEB 0.5 MG IH ×2 (06:20→18:33)
[2025-01-06] MEDS: ACETYLCYSTEINE 20% 4ML VIAL 2 ML IH ×2 (06:21→18:33)
[2025-01-06 06:41] LABS: Eosinophils % 0.2 % (0.1-12.0); Hematocrit 29.6 % (37.0-47.0); Hemoglobin 9.5 g/dL (12.2-16.2); Lymphocytes # 0.2 K/mm3 (0.7-4.5); Lymphocytes % 4.1 % (10-50); Mean Corpuscular HGB Conc 32.1 g/dL (31.8-35.4); Mean Corpuscular Hemoglobin 26.5 pg (27.0-31.2); Mean Corpuscular Volume 82.5 fl (81-99); Mean Platelet Volume 9.4 fl (7.4-10.4); Monocytes # 0.2 K/mm3 (0.1-1.0); Monocytes % 4.2 % (1.7-9.3); Neutrophils # 4.9 K/mm3 (1.8-7.8); Neutrophils % 90.6 % (37.0-80.0); Platelet Count 169 K/mm3 (142-424); Red Blood Count 3.59 M/mm3 (4.20-5.40); Red Cell Distribution Width 16.9 % (11.5-17.5); White Blood Count 5.4 K/mm3 (4.8-10.8)
[2025-01-06 06:47] LABS: MANUAL DIFFERENTIAL MANUAL DIFFERENTIAL (MANUAL DIFF)
[2025-01-06 06:58] LABS: Albumin Level 2.7 g/dl (3.5-5.0); Chloride 84 mmol/L (98-107)
[2025-01-06 06:59] LABS: Potassium 3.5 mmoL/L (3.5-5.1); Sodium 126 mmol/L (136-145)
[2025-01-06 07:01] LABS: Anion Gap 9.5 mEq/L (5-15); Blood Urea Nitrogen 7 mg/dl (7-17); Carbon Dioxide 36 mmol/L (22.0-30.0); Creatinine Clearance Estimated 47 mL/min (50-200); Estimated Glomerular Filt Rate 124 ml/min (>60); GFR (African American) 150 ML/MIN (>60)
[2025-01-06 07:02] LABS: Alanine Aminotransferase 21 U/L (12-78); Albumin/Globulin Ratio 0.8 (1.1-1.8); Alkaline Phosphatase 111 U/L (38-126); Aspartate Amino Transferase 25 U/L (14-36); Calcium 8.4 mg/dl (8.4-10.2); Globulin 3.5 g/dL (1.3-3.2); Glucose 117 mg/dl (74-100); Magnesium 1.9 mg/dl (1.6-2.3); Total Protein,Serum 6.2 g/dl (6.3-8.2)
[2025-01-06 07:07] LABS: C-Reactive Protein 240.1 mg/L (0-4)
[2025-01-06 07:08] LABS: Bilirubin,Total < 0.1 mg/dl (0.2-1.3)
[2025-01-06 07:48] LABS: Erythrocyte Sedimentation Rate 125 mm/hr (0-30)
--- NOTE | 2025-01-06 08:05 | XR_ITS ---
FINAL REPORT CLINICAL HISTORY: f/u pnx, edema COMPARISON: 01/04/2025 FINDINGS: PORTABLE CHEST, 1 VIEW COMPARISON: 01/04/2025 FINDINGS: There are diffuse pulmonary markings noted bilaterally, consistent with pulmonary edema, similar to the prior exam. There is mild improvement in the moderate bilateral effusions in the moderate bilateral lower lobe atelectasis. The cardiac silhouette is mildly enlarged but stable. Support tubes and lines are stable. IMPRESSION: There is mild improvement of moderate bilateral pleural effusions, with persistent underlying edema. Reviewed, Interpreted and Dictated by Sunni Quesada MD Transcribed by Mari Meek Authenticated and . [facility]
--- NOTE | 2025-01-06 08:07 | CA_ITS ---
APPROVED REPORT EXAM: Limited 2D Echocardiogram Hospitalist Nocturnist Physician: Kirstin Barbosa RT(R) Ht: 5 ft 5 in Wt: 116lbs BSA: 1.57 BP: 146/66 mmHg Indications: failure to thrive, pneumonia, COPD, smoker, hyponatremia, pleural effusion, echo done 12/26/24 EF55%, ordered as limited today to reassess EF. 2D Dimensions EF AP4 43.50 % GL Strain -16.6 % M-Mode Dimensions RVDd 1.97 cm (0.9-2.6) LVDd 4.90 cm (3.5-5.7) LVDs 3.54 cm (3.5-5.7) IVSd 0.72 cm (0.6-1.1) PWd 0.64 cm (0.6-1.1) EF (Teich) 53.60% FS 27.80% EDV (Teich) 112.80 mL ESV (Teich) 52.30 mL Other Information Study Quality: Fair Conclusion This is a limited TTE to evaluate for LV systolic function. Limited windows are obtained. The left ventricle is normal in size. There is increased LV wall thickness. There is mild global hypokinesis present. The septum is asynchronous. LVEF is 45%. A moderate-sized, localized, posterior pericardial effusion is present, measuring approximately 1.4 cm in diastole. No clear echo indications of tamponade in the available views. Pleural effusion is present. Electronically signed by : Nathaly Browne MD 01/06/2025 12:25:56
[2025-01-06] MEDS: ENOXAPARIN 40MG/0.4ML SYRINGE 40 MG SUBCUT (08:18)
[2025-01-06] MEDS: FUROSEMIDE 40MG/4ML VIAL 40 MG IV (08:18)
[2025-01-06] MEDS: predniSONE 20MG TAB 40 MG PO (08:18)
[2025-01-06] MEDS: SODIUM CHLORIDE 1,000MG TABLET 1000 MG PO ×2 (08:18→20:04)
[2025-01-06] MEDS: NYSTATIN SUSP 500,000 UNITS/5ML UDC 500000 UNIT PO ×4 (08:18→20:04)
[2025-01-06 08:23] LABS: Procalcitonin 0.222 ng/mL (0.0-2.0)
[2025-01-06 08:27] LABS: Lymphocytes % 9 % (10-50); Neutrophils % 91 % (42-76); Platelet Estimate Normal; RBC Morphology Normal; Total Cells Counted 100
[2025-01-06 08:54] LABS: POC Glucose,Bedside 125 (70-110)
[2025-01-06 09:02] LABS: NT Pro Brain Natriuretic Pep. 9850 pg/mL (0-125)
--- NOTE | 2025-01-06 09:46 | P.PN_ITS ---
Subjective *Date: 01/06/25 *Time: 11:59 Interval history: No acute respiratory vents overnight. Patient denies any new respiratory complaints Pulmonology Exam Inpatient Vital signs and Labs for Last 24 Hours: Temp Pulse Resp BP Pulse Ox O2 Del Method O2 Flow Rate 97.8 F 74 16 146/65 H 91 L Vapotherm 40 01/06/25 00:00 01/06/25 09:41 01/06/25 09:00 01/06/25 09:00 01/06/25 09:06 01/06/25 09:06 01/06/25 09:06 FiO2 85 01/06/25 09:06 Laboratory Results - last 24 hr 01/05/25 14:04: POC Glucose 83 01/06/25 05:30: WBC 5.4 D, RBC 3.59 L, Hgb 9.5 L, Hct 29.6 L, MCV 82.5, MCH 26.5 L, MCHC 32.1, RDW 16.9, Plt Count 169, MPV 9.4, Neut % (Auto) 90.6 H, Lymph % (Auto) 4.1 L, [place] % (Auto) 4.2, Eos % (Auto) 0.2, Baso % (Auto) 0.0 L, Neut # (Auto) 4.9, Lymph # (Auto) 0.2 L, [place] # (Auto) 0.2, Eos # (Auto) 0.0, Baso # (Auto) 0.0, Total Counted 100, Neutrophils % (Manual) 91 H, Lymphocytes % (Manual) 9 L, Platelet Estimate Normal, RBC Morphology Normal, ESR 125 H, Sodium 126 L, Potassium 3.5, Chloride 84 L, Carbon Dioxide 36 H, Anion Gap 9.5, BUN 7, Creatinine 0.50 L, Estimated Creat Clear 47, Estimated GFR 124, Est GFR ( Amer) 150, Glucose 117 H D, Calcium 8.4, Magnesium 1.9, Total Bilirubin < 0.1 L, AST 25, ALT 21 D, Alkaline Phosphatase 111, C-Reactive Protein 240.1 H, NT-Pro-B Natriuret Pep 9850 H, Total Protein 6.2 L, Albumin 2.7 L D, Globulin 3.5 H, Albumin/Globulin Ratio 0.8 L, Procalcitonin 0.222 01/06/25 08:46: POC Glucose 125 H I & O for Labs for Last 24 Hours: Intake & Output 01/03/25 01/04/25 01/05/25 01/06/25 23:59 23:59 23:59 23:59 Intake Total 650 / 950 1465 / 1465 810 / 810 360 / 360 Output Total 4650 / 4650 2650 / 2650 2215 / 2700 1300 / 1300 Balance -4000 / -3700 -1185 / -1185 -1405 / -1890 -940 / -940 Weight 120 lb 11.2 oz 120 lb 3.2 oz 109 lb 6.4 oz 116 lb 4.8 oz Microbiology Reports for the Last 24 Hours: Microbiology 01/01/25 13:20 Bronchial Lavage - Left Lower Lobe Gram Stain - Final 01/01/25 13:20 Bronchial Lavage - Left Lower Lobe Bronchoalveolar Lavage Culture - Final Staphylococcus aureus Stenotrophomonas maltophilia 01/01/25 13:20 Transbronchial Biopsy - Right Lower Lobe Gram Stain - Final 01/01/25 13:20 Transbronchial Biopsy - Right Lower Lobe Surgical Biopsy Culture - Preliminary NO GROWTH AFTER 4 DAYS Constitutional: Present severe distress Comment:: Intubated and Sedated Head: Present normocephalic and atraumatic Neck: Present normal inspection and trachea midline Respiratory: Present patient mechanically ventilated, prolonged expiratory phase, rhonchi, wheezes, diminished air movement and able to speak in complete sentences Cardiac: Present S1/S2 and Tachycardia GI: Present soft; Absent distention or tenderness Skin: Present intact; Absent cyanosis Neuro: Present alert, awake and oriented x 3 Extremities: Present normal inspection; Absent clubbing or cyanosis Psychiatric: Present normal affect Assessment and Plan *Assessment and plan (1) Right lower lobe pneumonia: Status: Acute Category: Medical Code(s): J18.9 - Pneumonia, unspecified organism (2) Acute respiratory failure with hypoxemia: Status: Acute Category: Medical Code(s): J96.01 - Acute respiratory failure with hypoxia (3) Unresolved pneumonia: Status: Acute Category: Medical Code(s): J18.9 - Pneumonia, unspecified organism (4) MRSA pneumonia: Status: Acute Category: Medical Code(s): J15.212 - Pneumonia due to Methicillin resistant Staphylococcus aureus Plan Ms. Kruse is a 64-year-old female with reported history of COPD hypertension CAD chronic hyponatremia recently discharged from the hospital for right lobar pneumonia on Augmentin presented with worsening respiratory distress found be hypotensive needing vasopressor support and pulmonary was called for further evaluation and management. Patient during her recent admission found to be having the right lower lobe dense consolidative changes, initiated on ceftriaxone and azithromycin on admission, discharged home on Augmentin. Current smoker greater than 30 PPD. At baseline not using oxygen supplementation during the daytime until most recent discharge. Prescribed nocturnal oxygen supplementation however has not been compliant. Chest x-ray from this morning continue to show right lower lobe airspace disease that appeared to be improved on recent admission. CTA upon admission evidence of pulmonary embolism. Continued symptoms of right lower lobe consolidative changes. No sputum cultures available from recent admission. Mild neutrophilic predominant leukocytosis. Comprehensive respiratory viral PCR panel negative Repeat CT chest reviewed, worsening right lower lobe consolidative changes and a small right effusion. Sputum Cultures MRSA on vancomycin, changed to Linezolid Status post bronchoscopy with copious amount of mucoid secretions. Concerning right lower lobe endobronchial lesion status post biopsy. Repeat sputum cultures grew stenotrophomonas along with MRSA, initiated on Bactrim along with continuation of linezolid. Repeat bronc and tracheal aspirate cultures continue to show MRSA Interval Update: No acute respiratory events over the night. Afebrile. Hemodynamically stable. Improving leukocytosis. Biopsy consistent with organizing pneumonia. CRP elevated. Procalcitonin within normal limits Repeat CTA no evidence of pulmonary embolism. Continue to bilateral lower lobe predominant airspace disease along with atelectasis. Bilateral effusions noted. Chest x-ray from this morning stable from prior with respect to airspace disease and effusions with no acute changes from the CT scan from yesterday and recent chest x-ray Plan: PT OT consult. Out of bed to chair. Activity as tolerated. Continue chest percussion therapy along with Mucomyst twice daily Incentive spirometry and flutter valve Prednisone 40 mg daily Continue oxygen supplementation to maintain O2 saturation goal of 90% and above. Currently high flow nasal cannula 40 L 100%. DuoNebs every 6 hours along with Pulmicort Q12 scheduled Continue linezolid and Bactrim pending final bronchoscopy results (Initiated on vancomycin 12/25/2024 which was eventually changed to linezolid /initiated on Bactrim on 2024 for stenotrophomonas pneumonia) No need for thoracentesis/chest tube placement for the noted bilateral effusions at this point of time. She continue to receive diuretics with net negative volume status. Will follow.
--- NOTE | 2025-01-06 11:28 | PC.NURSE ---
PT REFUSED A RECTAL TEMPERATURE TO BE OBTAINED. THIS SRNA ATTEMPTED TO OBTAIN ORAL TEMPERATURE. READING AT 97.5 AT THIS TIME, WILL CONTINUE TO MONITOR
[2025-01-06 14:24] LABS: POC Glucose,Bedside 236 (70-110)
--- NOTE | 2025-01-06 15:36 | PC.NURSE ---
pt has had lots of confusion this shift. she needs frequent reminding that she is admitted to the hospital. pt is insistent that she is being discharged today. pt continually removes her vapotherm, which results in her o2 sats decreasing. once o2 is placed back on pt, she recovers quickly. pt has removed 2 of her own iv's this shift and has been noted to be tugging on her catheter. pt body temperature has been noted to be low several times during this admission. pt had renan paws placed on her this shift, but she continually removes it or refuses to wear it.
--- NOTE | 2025-01-06 16:46 | P.PN_ITS ---
Subjective *Date: 01/06/25 *Time: 16:46 Interval history: Confusion improved today, improving with IV Lasix and antibiotics. Continue Vapotherm, wean as tolerated. No acute concerns today, though states that she feels about the same as yesterday. Exam Data for Last 24 hours Vital signs and Labs for Last 24 Hours: Temp Pulse Resp BP Pulse Ox O2 Del Method O2 Flow Rate 97.5 F L 93 H 15 146/72 H 92 L Vapotherm 40 01/06/25 11:28 01/06/25 16:00 01/06/25 16:00 01/06/25 16:00 01/06/25 16:00 01/06/25 16:00 01/06/25 16:00 FiO2 75 01/06/25 15:45 Laboratory Results - last 24 hr 01/06/25 05:30: WBC 5.4 D, RBC 3.59 L, Hgb 9.5 L, Hct 29.6 L, MCV 82.5, MCH 26.5 L, MCHC 32.1, RDW 16.9, Plt Count 169, MPV 9.4, Neut % (Auto) 90.6 H, Lymph % (Auto) 4.1 L, [place] % (Auto) 4.2, Eos % (Auto) 0.2, Baso % (Auto) 0.0 L, Neut # (Auto) 4.9, Lymph # (Auto) 0.2 L, [place] # (Auto) 0.2, Eos # (Auto) 0.0, Baso # (Auto) 0.0, Total Counted 100, Neutrophils % (Manual) 91 H, Lymphocytes % (Manual) 9 L, Platelet Estimate Normal, RBC Morphology Normal, ESR 125 H, Sodium 126 L, Potassium 3.5, Chloride 84 L, Carbon Dioxide 36 H, Anion Gap 9.5, BUN 7, Creatinine 0.50 L, Estimated Creat Clear 47, Estimated GFR 124, Est GFR ( Amer) 150, Glucose 117 H D, Calcium 8.4, Magnesium 1.9, Total Bilirubin < 0.1 L, AST 25, ALT 21 D, Alkaline Phosphatase 111, C-Reactive Protein 240.1 H, NT-Pro-B Natriuret Pep 9850 H, Total Protein 6.2 L, Albumin 2.7 L D, Globulin 3.5 H, Albumin/Globulin Ratio 0.8 L, Procalcitonin 0.222 01/06/25 08:46: POC Glucose 125 H 01/06/25 14:17: POC Glucose 236 H I & O for Last 24 hours: Intake & Output 01/03/25 01/04/25 01/05/25 01/06/25 23:59 23:59 23:59 23:59 Intake Total 650 / 950 1465 / 1465 810 / 810 860 / 860 Output Total 4650 / 4650 2650 / 2650 2215 / 2700 2300 / 2300 Balance -4000 / -3700 -1185 / -1185 -1405 / -1890 -1440 / -1440 Weight 54.749 kg 54.522 kg 49.623 kg 52.753 kg Microbiology Reports for the Last 24 Hours: Microbiology 01/01/25 13:20 Transbronchial Biopsy - Right Lower Lobe - Final 01/01/25 13:20 Transbronchial Biopsy - Right Lower Lobe - Final 01/01/25 13:20 Transbronchial Biopsy - Right Lower Lobe - Final 01/01/25 13:20 Transbronchial Biopsy - Right Lower Lobe Acid Fast Bacilli Smear - Final 01/01/25 13:20 Bronchial Lavage - Right Lower Lobe - Final 01/01/25 13:20 Bronchial Lavage - Right Lower Lobe - Final 01/01/25 13:20 Bronchial Lavage - Right Lower Lobe - Final 01/01/25 13:20 Bronchial Lavage - Right Lower Lobe Acid Fast Bacilli Smear - Final 01/01/25 13:20 Bronchial Lavage - Left Lower Lobe - Final 01/01/25 13:20 Bronchial Lavage - Left Lower Lobe - Final 01/01/25 13:20 Bronchial Lavage - Left Lower Lobe - Final 01/01/25 13:20 Bronchial Lavage - Left Lower Lobe Acid Fast Bacilli Smear - Final 12/31/24 09:00 Sputum - Expectorated Sputum - Final 12/31/24 09:00 Sputum - Expectorated Sputum - Final 01/01/25 13:20 Transbronchial Biopsy - Right Lower Lobe Gram Stain - Final 01/01/25 13:20 Transbronchial Biopsy - Right Lower Lobe Surgical Biopsy Culture - Final NO GROWTH AFTER 5 DAYS 01/01/25 13:20 Bronchial Lavage - Left Lower Lobe Gram Stain - Final 01/01/25 13:20 Bronchial Lavage - Left Lower Lobe Bronchoalveolar Lavage Culture - Final Staphylococcus aureus Stenotrophomonas maltophilia Constitutional Constitutional: no acute distress and cachectic *Routine HEENT Exam Head: Present normocephalic Eye: Present EOMI and PERRL ENT: Present mucous membranes moist *Routine Neck Exam Neck: Present supple; Absent lymphadenopathy *Routine Respiratory Exam Respiratory: Present rhonchi and wheezes; Absent CTA bilaterally *Routine Cardiovascular Exam Cardiovascular: Present RRR *Routine Abdominal Exam Abdominal: Present soft and normoactive bowel sounds; Absent tenderness *Routine Extremities Exam Extremities: Absent cyanosis, clubbing or edema *Routine Skin Exam Skin: Present warm; Absent rash *Routine Neurological Exam Neurological: Present alert and oriented X3 Assessment and Plan *Assessment and plan (1) Right lower lobe pneumonia: Status: Acute Category: Medical Code(s): J18.9 - Pneumonia, unspecified organism (2) Acute urinary retention: Status: Acute Category: Medical Code(s): R33.8 - Other retention of urine (3) MRSA pneumonia: Status: Acute Category: Medical Code(s): J15.212 - Pneumonia due to Methicillin resistant Staphylococcus aureus (4) Acute respiratory failure with hypoxemia: Status: Acute Category: Medical Code(s): J96.01 - Acute respiratory failure with hypoxia (5) Severe protein-calorie malnutrition: Status: Acute Category: Medical Code(s): E43 - Unspecified severe protein-calorie malnutrition (6) SIADH (syndrome of inappropriate ADH production): Status: Acute Category: Medical Code(s): E22.2 - Syndrome of inappropriate secretion of antidiuretic hormone (7) Hyponatremia: Status: Acute Category: Medical Code(s): E87.1 - Hypo-osmolality and hyponatremia Plan Patient is a 64-year-old female with a medical history of COPD, hypertension, extensive smoking history, chronic hyponatremia, CAD presents with progressive functional decline, shortness of breath, productive cough. She was recently discharged about a week ago in stable condition after treatment for right lobar pneumonia. Patient states she did well for a few days at home and finished her course of Augmentin, however over the past few days she became increasingly short of breath, productive cough and profound weakness. She denies chest pain, abdominal pain. Patient at this time is not the best historian given her lethargy workup in the ED significant for WBC 8.1, sodium 125, BNP 2070. CTA revealed extensive right lower lobe pneumonia, hilar adenopathy. CT abdomen/pelvis suggestive of fluid-filled bowels, and severely distended urinary bladder. Still requiring Vapotherm. Interactive on exam today. Still requiring 100% FiO2 however showing improvement clinically. Denies any chest pain. No nausea or vomiting. Problems addressed as follows: #Acute hypoxic respiratory failure #MRSA multifocal pneumonia #Hilar adenopathy ? Initial CTA revealed right lobar pneumonia. No leukocytosis or signs of sepsis at that time. Tachypnea improved, no signs of sepsis at this time. Confusion improved today. ? Will continue supplemental oxygen to maintain goal sats greater 90%. ? Discussed case with pulmonology today, Vapotherm 40 L 75%. ? Repeat CXR today shows improvement in consolidations, atelectasis, effusions. ? Continue DuoNebs every 6 hours along with Pulmicort twice daily. ? Will continue Zyvox twice daily (today is day 07/26) and Bactrim double strength twice daily. Sputum culture showing MRSA and Stenotrophomonas maltophilia, but also suggesting cryptogenic pneumonia per pulmonology. ? Continue diuretics with Lasix 40 mg IV daily. ? White count remains normal at 7.7. Hemoglobin 9.3. Inflammatory markers jacob vated with CRP of 240 and ESR 125. #HFrEF #Right heart failure #Moderate posterior pericardial effusion ? Initial BNP 1999, with 3+ pitting edema. Likely further exacerbated by protein/nutritional deficiencies. ? Repeat limited ECHO 01/06/2025 reveals LVEF 45% with global hypokinesis indicating stress-induced cardiomyopathy. There is also a moderate-sized localized posterior pericardial effusion, 1.4 cm, with no tamponade physiology. ? Started metoprolol succinate 25 mg, lisinopril 5 mg. ? Impressive response to Lasix over weekend. Continue 40 mg IV daily. ? Cardiology consulted, pending further recommendations. ? Monitor renal function, electrolytes. #Acute on chronic hyponatremia ? Sodium 125 on admission. Sodium stable at 126, chloride 85. Continue to fluid restrict less than 1500 cc a day. ? Consistent with SIADH based on labs earlier this month with urine sodium in the 50s. Inappropriately elevated. ? Continue sodium chloride replacement with 1000 mg twice daily p.o. #COPD exacerbation ? Current smoker. COPD seems slightly exacerbated today; continue DuoNebs, Pulmicort. Hold Trelegy. #Cognitive decline ? Per patient's brother, patient has had cognitive decline since Thanks. He believes that patient is not adequately taking care of herself at home, does not always remember to take her medications, does have boyfriend but he is not around every day. ? Patient is waxing and waning in confusion during hospitalization. Could be hospital-acquired delirium with underlying dementia. ? There is some concern for dementia given progressive cognitive changes. ? CT head 12/18/2024 shows mild atrophy. #Physical deconditioning #Functional decline #Severe protein calorie malnutrition ? TFTs, B12, folate normal. Follow-up vitamin D. ? PT/OT consulted, recommended home with home health; continue to work with patient daily. ? Will provide high-protein shakes with meals. #Anemia ? Hemoglobin stable at 9.3. No active signs of bleeding. transfusion threshold hemoglobin less than 7. #Urinary retention ? Severely distended bladder on initial CT, multiple attempts to remove Ramos. Replaced on 01/01 due to failed voiding trial. Will refer to urology as an outpatient. #Hypertension ? Hold home lisinopril today. #GERD ? Continue home PPI. Full code DVT prophylaxis: Lovenox 40 mg
[2025-01-06] MEDS: METOPROLOL SUCCINATE XL 25MG TABLET 25 MG PO (17:37)
[2025-01-06] MEDS: IRBESARTAN 75MG TABLET 75 MG PO (17:38)
[2025-01-06 19:59] LABS: POC Glucose,Bedside 124 (70-110)
[2025-01-06] MEDS: PANTOPRAZOLE 40MG TABLET 40 MG PO (20:04)
[2025-01-07] VITALS (33 sets, daily range): BP systolic 105–203; BP diastolic 45–95; PULSE 56–97; RESP 12–20; TEMP 36.4–36.8; O2SAT 89–99; BMI 19.4
[2025-01-07] MEDS: IPRATROPIUM/ALBUTEROL 3 ML NEB IH ×5 (01:31→18:40)
[2025-01-07] MEDS: SULFAMETHOXAZOLE/TRIMETHOPRIM 10 ML in DEXTROSE 5 % IN WATER 250 ML 173.333 ML IV ×2 (03:00→14:04)
[2025-01-07 04:24] LABS: POC Glucose,Bedside 134 (70-110)
[2025-01-07] MEDS: LORazepam 2MG/ML VIAL 0.5 MG IV (05:19)
--- NOTE | 2025-01-07 05:22 | PC.NURSE ---
pt woke up confused/agitated. pt reoriented and assisted to the chair per pts request. Pt then became even more confused and agitated. Gerald and Melvin present. pt pulling ivs, casing tester, pulse ox, and oxygen off despite RNS reorienting pt multiple times. Pt yelling, refusing care. Provider called. See MAR for new orders, provider came to bedside. Mitts were applied. Pt continuing to be non-compliant with treatment at this time. SRNA at bedside.
[2025-01-07] MEDS: BUDESONIDE 0.5MG/2ML NEB 0.5 MG IH ×2 (06:24→18:40)
[2025-01-07] MEDS: ACETYLCYSTEINE 20% 4ML VIAL 2 ML IH ×2 (06:24→18:40)
[2025-01-07 07:53] LABS: Basophils % 0.2 % (0.1-2.0); Eosinophils % 0.2 % (0.1-12.0); Hematocrit 28.6 % (37.0-47.0); Hemoglobin 9.3 g/dL (12.2-16.2); Lymphocytes # 0.5 K/mm3 (0.7-4.5); Lymphocytes % 9.6 % (10-50); Mean Corpuscular HGB Conc 32.5 g/dL (31.8-35.4); Mean Corpuscular Hemoglobin 26.6 pg (27.0-31.2); Mean Corpuscular Volume 81.9 fl (81-99); Mean Platelet Volume 8.9 fl (7.4-10.4); Monocytes # 0.3 K/mm3 (0.1-1.0); Monocytes % 5.3 % (1.7-9.3); Neutrophils # 4.4 K/mm3 (1.8-7.8); Neutrophils % 83.8 % (37.0-80.0); Platelet Count 171 K/mm3 (142-424); Red Blood Count 3.49 M/mm3 (4.20-5.40); Red Cell Distribution Width 16.8 % (11.5-17.5); White Blood Count 5.3 K/mm3 (4.8-10.8)
[2025-01-07 08:10] LABS: Albumin Level 2.8 g/dl (3.5-5.0); Chloride 85 mmol/L (98-107); Potassium 3.8 mmoL/L (3.5-5.1); Sodium 127 mmol/L (136-145)
[2025-01-07 08:13] LABS: Alanine Aminotransferase 30 U/L (12-78); Albumin/Globulin Ratio 0.8 (1.1-1.8); Alkaline Phosphatase 106 U/L (38-126); Anion Gap 8.8 mEq/L (5-15); Aspartate Amino Transferase 44 U/L (14-36); Bilirubin,Total 0.2 mg/dl (0.2-1.3); Blood Urea Nitrogen 10 mg/dl (7-17); Calcium 8.4 mg/dl (8.4-10.2); Carbon Dioxide 37 mmol/L (22.0-30.0); Creatinine Clearance Estimated 47 mL/min (50-200); Estimated Glomerular Filt Rate 100 ml/min (>60); GFR (African American) 121 ML/MIN (>60); Globulin 3.6 g/dL (1.3-3.2); Glucose 136 mg/dl (74-100); Total Protein,Serum 6.4 g/dl (6.3-8.2)
[2025-01-07 08:14] LABS: Magnesium 1.7 mg/dl (1.6-2.3)
[2025-01-07 08:20] LABS: POC Glucose,Bedside 126 (70-110)
[2025-01-07 08:22] LABS: NT Pro Brain Natriuretic Pep. 5150 pg/mL (0-125)
[2025-01-07] MEDS: METOPROLOL SUCCINATE XL 25MG TABLET 25 MG PO (08:23)
[2025-01-07] MEDS: predniSONE 20MG TAB 40 MG PO (08:23)
[2025-01-07] MEDS: IRBESARTAN 75MG TABLET 75 MG PO (08:23)
[2025-01-07] MEDS: ENOXAPARIN 40MG/0.4ML SYRINGE 40 MG SUBCUT (08:23)
[2025-01-07] MEDS: SODIUM CHLORIDE 1,000MG TABLET 1000 MG PO ×2 (08:23→20:08)
[2025-01-07] MEDS: FUROSEMIDE 40MG/4ML VIAL 40 MG IV (08:23)
[2025-01-07] MEDS: NYSTATIN SUSP 500,000 UNITS/5ML UDC 500000 UNIT PO ×4 (08:23→20:08)
--- NOTE | 2025-01-07 09:38 | EXP.PULM.PN ---
Subjective *Date: 01/07/25 *Time: 11:55 Interval history: No acute respiratory vents overnight. Patient admits improvement in her respiratory symptoms. Pulmonology Exam Inpatient Vital signs and Labs for Last 24 Hours: Temp Pulse Resp BP Pulse Ox O2 Del Method O2 Flow Rate 98.2 F 80 14 138/68 90 L Vapotherm 40 01/07/25 04:00 01/07/25 08:00 01/07/25 08:00 01/07/25 08:00 01/07/25 08:00 01/07/25 08:00 01/07/25 08:00 FiO2 60 01/07/25 08:00 Laboratory Results - last 24 hr 01/06/25 14:17: POC Glucose 236 H 01/06/25 19:51: POC Glucose 124 H 01/07/25 04:17: POC Glucose 134 H 01/07/25 07:45: WBC 5.3, RBC 3.49 L, Hgb 9.3 L, Hct 28.6 L, MCV 81.9, MCH 26.6 L, MCHC 32.5, RDW 16.8, Plt Count 171, MPV 8.9, Neut % (Auto) 83.8 H, Lymph % (Auto) 9.6 L, [place] % (Auto) 5.3, Eos % (Auto) 0.2, Baso % (Auto) 0.2, Neut # (Auto) 4.4, Lymph # (Auto) 0.5 L, [place] # (Auto) 0.3, Eos # (Auto) 0.0, Baso # (Auto) 0.0, Sodium 127 L, Potassium 3.8, Chloride 85 L, Carbon Dioxide 37 H, Anion Gap 8.8, BUN 10 D, Creatinine 0.60, Estimated Creat Clear 47, Estimated GFR 100, Est GFR ( Amer) 121, Glucose 136 H, Calcium 8.4, Magnesium 1.7 D, Total Bilirubin 0.2, AST 44 H D, ALT 30 D, Alkaline Phosphatase 106, C-Reactive Protein 92.0 H D, NT-Pro-B Natriuret Pep 5150 H, Total Protein 6.4, Albumin 2.8 L, Globulin 3.6 H, Albumin/Globulin Ratio 0.8 L 01/07/25 08:12: POC Glucose 126 H I & O for Labs for Last 24 Hours: Intake & Output 02/23/25 02/24/25 02/25/25 02/26/25 23:59 23:59 23:59 23:59 Intake Total 1465 / 1465 810 / 810 980 / 980 210 / 210 Output Total 2650 / 2650 2215 / 2700 3325 / 3325 925 / 925 Balance -1185 / -1185 -1405 / -1890 -2345 / -2345 -715 / -715 Weight 120 lb 3.2 oz 109 lb 6.4 oz 116 lb 4.8 oz 116 lb 8.052 oz Microbiology Reports for the Last 24 Hours: Microbiology 01/01/25 13:20 Transbronchial Biopsy - Right Lower Lobe - Final 01/01/25 13:20 Transbronchial Biopsy - Right Lower Lobe - Final 01/01/25 13:20 Transbronchial Biopsy - Right Lower Lobe - Final 01/01/25 13:20 Transbronchial Biopsy - Right Lower Lobe Acid Fast Bacilli Smear - Final 01/01/25 13:20 Bronchial Lavage - Right Lower Lobe - Final 01/01/25 13:20 Bronchial Lavage - Right Lower Lobe - Final 01/01/25 13:20 Bronchial Lavage - Right Lower Lobe - Final 01/01/25 13:20 Bronchial Lavage - Right Lower Lobe Acid Fast Bacilli Smear - Final 01/01/25 13:20 Bronchial Lavage - Left Lower Lobe - Final 01/01/25 13:20 Bronchial Lavage - Left Lower Lobe - Final 01/01/25 13:20 Bronchial Lavage - Left Lower Lobe - Final 01/01/25 13:20 Bronchial Lavage - Left Lower Lobe Acid Fast Bacilli Smear - Final 12/31/24 09:00 Sputum - Expectorated Sputum - Final 12/31/24 09:00 Sputum - Expectorated Sputum - Final 01/01/25 13:20 Transbronchial Biopsy - Right Lower Lobe Gram Stain - Final 01/01/25 13:20 Transbronchial Biopsy - Right Lower Lobe Surgical Biopsy Culture - Final NO GROWTH AFTER 5 DAYS 01/01/25 13:20 Bronchial Lavage - Left Lower Lobe Gram Stain - Final 01/01/25 13:20 Bronchial Lavage - Left Lower Lobe Bronchoalveolar Lavage Culture - Final Staphylococcus aureus Stenotrophomonas maltophilia Constitutional: Present severe distress Comment:: Intubated and Sedated Head: Present normocephalic and atraumatic Neck: Present normal inspection and trachea midline Respiratory: Present patient mechanically ventilated, prolonged expiratory phase, rhonchi, wheezes, diminished air movement and able to speak in complete sentences Cardiac: Present S1/S2 and Tachycardia GI: Present soft; Absent distention or tenderness Skin: Present intact; Absent cyanosis Neuro: Present alert, awake and oriented x 3 Extremities: Present normal inspection; Absent clubbing or cyanosis Psychiatric: Present normal affect Assessment and Plan *Assessment and plan (1) Right lower lobe pneumonia: Status: Acute Category: Medical Code(s): J18.9 - Pneumonia, unspecified organism (2) Acute respiratory failure with hypoxemia: Status: Acute Category: Medical Code(s): J96.01 - Acute respiratory failure with hypoxia (3) Unresolved pneumonia: Status: Acute Category: Medical Code(s): J18.9 - Pneumonia, unspecified organism (4) MRSA pneumonia: Status: Acute Category: Medical Code(s): J15.212 - Pneumonia due to Methicillin resistant Staphylococcus aureus Plan Ms. Kruse is a 64-year-old female with reported history of COPD hypertension CAD chronic hyponatremia recently discharged from the hospital for right lobar pneumonia on Augmentin presented with worsening respiratory distress found be hypotensive needing vasopressor support and pulmonary was called for further evaluation and management. Patient during her recent admission found to be having the right lower lobe dense consolidative changes, initiated on ceftriaxone and azithromycin on admission, discharged home on Augmentin. Current smoker greater than 30 PPD. At baseline not using oxygen supplementation during the daytime until most recent discharge. Prescribed nocturnal oxygen supplementation however has not been compliant. Chest x-ray from this morning continue to show right lower lobe airspace disease that appeared to be improved on recent admission. CTA upon admission evidence of pulmonary embolism. Continued symptoms of right lower lobe consolidative changes. No sputum cultures available from recent admission. Mild neutrophilic predominant leukocytosis. Comprehensive respiratory viral PCR panel negative Repeat CT chest reviewed, worsening right lower lobe consolidative changes and a small right effusion. Sputum Cultures MRSA on vancomycin, changed to Linezolid Status post bronchoscopy with copious amount of mucoid secretions. Concerning right lower lobe endobronchial lesion status post biopsy. Repeat sputum cultures grew stenotrophomonas along with MRSA, initiated on Bactrim along with continuation of linezolid. Repeat bronc and tracheal aspirate cultures continue to show MRSA Repeat CTA no evidence of pulmonary embolism. Continue to bilateral lower lobe predominant airspace disease along with atelectasis. Bilateral effusions noted. Interval Update: No acute respiratory events overnight. Stable leukocytosis. Improving oxygen requirements. Continue to receive linezolid, Bactrim and prednisone. Plan: F/U PT OT. Out of bed to chair. Activity as tolerated. Continue chest percussion therapy along with Mucomyst twice daily Incentive spirometry and flutter valve COntinue Prednisone 40 mg daily Continue oxygen supplementation to maintain O2 saturation goal of 90% and above. Currently high flow nasal cannula 40 L60%. Continue to wean as tolerated DuoNebs every 6 hours along with Pulmicort Q12 scheduled Continue linezolid for a total of 10-day course including her vancomycin course and discontinue. ((Initiated on vancomycin 12/25/2024 which was eventually changed to linezolid) Continue Bactrim for a total of 10-day course from initiation (initiated on Bactrim on 2024 for stenotrophomonas pneumonia) No need for thoracentesis/chest tube placement for the noted bilateral effusions at this point of time. She continue to receive diuretics with net negative volume status. Will follow.
[2025-01-07] MEDS: NICOTINE 21MG/24HR PATCH 21 MG TD (09:46)
--- NOTE | 2025-01-07 10:42 | P.CONCA_ITS ---
History of Present Illness History of Present Illness Consult date: 01/07/25 Requesting physician: Simeon Eric Chief complaint: Pericardial effusion History of present illness: 64 yo WF admitted on 12/25/2024 for SOA, productive cough and progressive functional decline. She had previously been treated for pneumonia and discharged one week prior to this admission but relapsed necessitating re- admission. During this admission she has been treated for sputum cultures showing enterococcus faecalis and Pseudomonas with multiple antibiotics, hypotension treated wtih pressor support and hypoxia treated with vapotherm. Initial echo showed RV dilation with reduced RV function and RVSP of 50-55 mm Hg felt due to COPD/Pulm HTN with acute resp illness. Bronchoscopy performed this admission with sputum cultures growing stenotrophomonus along with MRSA for which the patient was started on Bactrim with continuation of low Nasalide. CTA shows no evidence of pulmonary embolism. Limited echo yesterday shows mild global hypokinesis with LVEF of 45% (decreased from EF 55% on 12/26/2024) and a moderate sized, localized, posterior pericardial effusion measuring approximately 1.4 cm in diastole. No evidence of tamponade noted. Cardiology consulted for evaluation and recommendations. Patient continues to on Vapotherm therapy at 40 L/min. She denies any chest pain, pressure or tightness. BNP has decreased from 98 50-50 150 Troponins are normal earlier this admission CRP down from 240 yesterday to 92 today Sodium 127 with normal renal functions Hemoglobin stable around 9.3 PFSH PFSH Disclaimer: The information contained in this section may have been updated after the patient was seen, as this information can be updated by other users. Medical History (Updated 01/07/25 @ 11:56 by ANY Schaefer) MRSA pneumonia Unresolved pneumonia Pseudomonas pneumonia Acute respiratory failure with hypoxemia Encounter for screening for malignant neoplasm of lung in current smoker with 30 pack year history or greater Pleural thickening Lung nodule Tobacco abuse disorder Tobacco abuse counseling COPD (chronic obstructive pulmonary disease) Smoking greater than 30 pack years Dyspnea on exertion Surgical History Previous back surgery Family History Other No significant family history Social History (Updated 01/01/25 @ 12:13 by Anthony Green CRNA) Smoking Status: Current every day smoker tobacco type: cigarettes packs per day: 3 alcohol intake: never substance use type: denies use current occupational status: disabled Travel in the last 8 weeks: None household members: significant other housing: house caffeine: Yes Have you lived/traveled outside [place] in past 30 days?: No Contact w/someone who lives/traveled outside [place] past 30 days?: No Exposure to someone with infectious disease in past 14 days?: No Do you have a fever (greater than 100.4 F or 38 C)?: No Have you tested positive for COVID-19: No Exposed to someone with COVID-19 in past 14 days?: No Do you have a sore throat?: No Do you have a cough?: No Do you have any weakness?: Yes Do you have any diarrhea?: No Are you experiencing any unusual bleeding?: No Do you have any muscle aches/pain?: No Do you have any abdominal pain?: No Are you experiencing loss of taste or smell?: No Review of Systems Review of Systems Review of systems:: pertinent systems reviewed and negative unless documented below *Cardiovascular Cardiovascular: Denies chest pain, Reports dyspnea and Reports dyspnea on exertion *Respiratory Respiratory: Reports dyspnea and Reports dyspnea on exertion Exam Data for Last 24 hours Vital signs and Labs for Last 24 Hours: Temp Pulse Resp BP Pulse Ox O2 Del Method O2 Flow Rate 98.2 F 70 18 118/71 92 L Vapotherm 40 01/07/25 04:00 01/07/25 10:27 01/07/25 10:27 01/07/25 10:00 01/07/25 10:27 01/07/25 10:27 01/07/25 10:27 FiO2 60 01/07/25 10:27 Laboratory Results - last 24 hr 01/06/25 14:17: POC Glucose 236 H 01/06/25 19:51: POC Glucose 124 H 01/07/25 04:17: POC Glucose 134 H 01/07/25 07:45: WBC 5.3, RBC 3.49 L, Hgb 9.3 L, Hct 28.6 L, MCV 81.9, MCH 26.6 L , MCHC 32.5, RDW 16.8, Plt Count 171, MPV 8.9, Neut % (Auto) 83.8 H, Lymph % (Auto) 9.6 L, [place] % (Auto) 5.3, Eos % (Auto) 0.2, Baso % (Auto) 0.2, Neut # (Auto) 4.4, Lymph # (Auto) 0.5 L, [place] # (Auto) 0.3, Eos # (Auto) 0.0, Baso # (Auto) 0.0, Sodium 127 L, Potassium 3.8, Chloride 85 L, Carbon Dioxide 37 H, Anion Gap 8.8, BUN 10 D, Creatinine 0.60, Estimated Creat Clear 47, Estimated GFR 100, Est GFR ( Amer) 121, Glucose 136 H, Calcium 8.4, Magnesium 1.7 D, Total Bilirubin 0.2, AST 44 H D, ALT 30 D, Alkaline Phosphatase 106, C- Reactive Protein 92.0 H D, NT-Pro-B Natriuret Pep 5150 H, Total Protein 6.4, Albumin 2.8 L, Globulin 3.6 H, Albumin/Globulin Ratio 0.8 L 01/07/25 08:12: POC Glucose 126 H I & O for Last 24 hours: Intake & Output 01/04/25 01/05/25 01/06/25 01/07/25 11:59 11:59 11:59 11:59 Intake Total 1325 / 1325 490 / 490 1290 / 1290 710 / 710 Output Total 2850 / 2850 3520 / 3640 2495 / 2795 2250 / 2250 Balance -1525 / -1525 -3030 / -3150 -1205 / -1505 -1540 / -1540 Weight 120 lb 3.2 oz 109 lb 6.4 oz 116 lb 4.8 oz 116 lb 8.052 oz Microbiology Reports for the Last 24 Hours: Microbiology 01/01/25 13:20 Transbronchial Biopsy - Right Lower Lobe - Final 01/01/25 13:20 Transbronchial Biopsy - Right Lower Lobe - Final 01/01/25 13:20 Transbronchial Biopsy - Right Lower Lobe - Final 01/01/25 13:20 Transbronchial Biopsy - Right Lower Lobe Acid Fast Bacilli Smear - Final 01/01/25 13:20 Bronchial Lavage - Right Lower Lobe - Final 01/01/25 13:20 Bronchial Lavage - Right Lower Lobe - Final 01/01/25 13:20 Bronchial Lavage - Right Lower Lobe - Final 01/01/25 13:20 Bronchial Lavage - Right Lower Lobe Acid Fast Bacilli Smear - Final 01/01/25 13:20 Bronchial Lavage - Left Lower Lobe - Final 01/01/25 13:20 Bronchial Lavage - Left Lower Lobe - Final 01/01/25 13:20 Bronchial Lavage - Left Lower Lobe - Final 01/01/25 13:20 Bronchial Lavage - Left Lower Lobe Acid Fast Bacilli Smear - Final 12/31/24 09:00 Sputum - Expectorated Sputum - Final 12/31/24 09:00 Sputum - Expectorated Sputum - Final 01/01/25 13:20 Transbronchial Biopsy - Right Lower Lobe Gram Stain - Final 01/01/25 13:20 Transbronchial Biopsy - Right Lower Lobe Surgical Biopsy Culture - Final NO GROWTH AFTER 5 DAYS 01/01/25 13:20 Bronchial Lavage - Left Lower Lobe Gram Stain - Final 01/01/25 13:20 Bronchial Lavage - Left Lower Lobe Bronchoalveolar Lavage Culture - Final Staphylococcus aureus Stenotrophomonas maltophilia Constitutional Constitutional: mild distress *Routine Respiratory Exam Respiratory: Present decreased breath sounds; Absent wheezes *Routine Cardiovascular Exam Cardiovascular: Present RRR and murmur; Absent gallop or rubs *Routine Extremities Exam Extremities: Absent edema Meds Home Medications and Allergies Home Medications ?Medication ?Instructions ?Recorded ?Confirmed ?Type linaclotide 145 mcg capsule 145 mcg PO DAILY 01/16/22 12/25/24 History carvedilol 6.25 mg tablet 6.25 mg PO BID 12/18/24 12/25/24 History diclofenac sodium 75 mg 75 mg PO BIDP PRN ARTHRITIS PAIN 12/18/24 12/26/24 History tablet,delayed release fluticasone fur. 200 mcg-umeclid 1 inh inhalation DAILY 12/18/24 12/25/24 History 62.5 mcg-vilant 25 mcg inhalat.powder (Trelegy Ellipta) fluticasone propionate 50 1 spray intranasal DAILY 12/18/24 12/25/24 History mcg/actuation nasal spray,suspension lisinopril 10 mg tablet 10 mg PO DAILY 12/18/24 12/25/24 History omeprazole 20 mg capsule,delayed 20 mg PO DAILY 12/18/24 12/25/24 History release potassium chloride 20 mEq 20 meq PO DAILY 12/18/24 12/25/24 History tablet,extended release(part/cryst) rosuvastatin 10 mg tablet 10 mg PO HS 12/18/24 12/25/24 History nystatin 100,000 unit/mL oral 500,000 unit (5 mL) PO QID 10 days 12/19/24 12/25/24 Rx suspension #200 mL cetirizine 10 mg tablet 10 mg PO DAILY 12/26/24 12/26/24 History ergocalciferol (vitamin D2) 1,250 1,250 mcg PO WEEKLY 12/26/24 12/26/24 History mcg (50,000 unit) capsule New Prescriptions to Start Prescriptions: Allergies Allergy/AdvReac Type Severity Reaction Status Date / Time No Known Allergies Allergy Verified 12/25/24 15:02 Assessment and Plan *Assessment and plan (1) Pericardial effusion: Status: Acute Category: Medical Code(s): I31.39 - Other pericardial effusion (noninflammatory) (2) Acute HFrEF (heart failure with reduced ejection fraction): Status: Acute Category: Medical Code(s): I50.21 - Acute systolic (congestive) heart failure (3) Acute respiratory failure with hypoxemia: Status: Acute Category: Medical Code(s): J96.01 - Acute respiratory failure with hypoxia (4) MRSA pneumonia: Status: Acute Qualifiers: Laterality: right Lung location: lower lobe of lung Qualified Code(s): J15.212 - Pneumonia due to Methicillin resistant Staphylococcus aureus Category: Medical Code(s): J15.212 - Pneumonia due to Methicillin resistant Staphylococcus aureus (5) Pseudomonas pneumonia: Status: Acute Qualifiers: Laterality: right Lung location: lower lobe of lung Qualified Code(s): J15.1 - Pneumonia due to Pseudomonas Category: Medical Code(s): J15.1 - Pneumonia due to Pseudomonas (6) Right lower lobe pneumonia: Status: Acute Qualifiers: Pneumonia type: due to methicillin-resistant Staphylococcus aureus (MRSA) Qualified Code(s): J15.212 - Pneumonia due to Methicillin resistant Staphylococcus aureus Category: Medical Code(s): J18.9 - Pneumonia, unspecified organism Plan 1. Moderate posterior Pericardial effusion without tamponade -incidental finding without clinical impact at this time. -follow and treat only if becomes clinically important 2. Resp failure with hypoxia, COPD -Multifocal Pneumonia with MRSA -Antibiotics and steroids per Pulmonary -continues on vapotherm 3. New systolic cardiomyopathy with LVEF 45%/HFrEF without regional wall motion abnormalities -likely due to prolonged resp illness -significant coronary artery calcifications on chest CT. Will need ischemic evaluation in future -check troponins today -agree with switching to entresto if tolerated (watch potassium level) -continue metoprolol for now -continue lasix -add spironolactone 4. Anemia, stable -Hgb 9.3 5. Cognitive decline -mild atrophy on head CT -hyponatremia, improved at 127 Adjusted cardiac meds Continue diuresis and follow renal functions. Follow clinically and repeat echo if indicated to assess LVEF and effusion
[2025-01-07] MEDS: HALOPERIDOL LACTATE 5 MG/ML VIAL 4 MG IV ×2 (11:06→20:49)
[2025-01-07 12:53] LABS: Troponin I < 0.01 ng/ml (0.00-0.034)
--- NOTE | 2025-01-07 14:40 | DIET.NUTRFU ---
Spoke to nursing staff today,her meal intake showed some improvement. Consumed 100% of fried eggs for breakfast and 1/2 chicken for lunch.Is requesting to discontinue the boost breeze also, she dislikes boost the boost breeze and regular boost, does not want anything milk based for extra calories and protein. She does like her coffee
[2025-01-07 16:16] LABS: POC Glucose,Bedside 129 (70-110)
--- NOTE | 2025-01-07 16:54 | P.PN_ITS ---
Subjective *Date: 01/07/25 *Time: 16:54 Interval history: Respiratory status stable, continues to require Vapotherm 40 L but weaned to 60%. More agitated today, started Haldol as needed. Exam Data for Last 24 hours Vital signs and Labs for Last 24 Hours: Temp Pulse Resp BP Pulse Ox O2 Del Method O2 Flow Rate 97.8 F 82 14 126/69 92 L Vapotherm 40 01/07/25 16:00 01/07/25 16:00 01/07/25 16:00 01/07/25 16:00 01/07/25 16:00 01/07/25 16:00 01/07/25 16:00 FiO2 60 01/07/25 16:00 Laboratory Results - last 24 hr 01/06/25 19:51: POC Glucose 124 H 01/07/25 04:17: POC Glucose 134 H 01/07/25 07:45: WBC 5.3, RBC 3.49 L, Hgb 9.3 L, Hct 28.6 L, MCV 81.9, MCH 26.6 L , MCHC 32.5, RDW 16.8, Plt Count 171, MPV 8.9, Neut % (Auto) 83.8 H, Lymph % (Auto) 9.6 L, [place] % (Auto) 5.3, Eos % (Auto) 0.2, Baso % (Auto) 0.2, Neut # (Auto) 4.4, Lymph # (Auto) 0.5 L, [place] # (Auto) 0.3, Eos # (Auto) 0.0, Baso # (Auto) 0.0, Sodium 127 L, Potassium 3.8, Chloride 85 L, Carbon Dioxide 37 H, Anion Gap 8.8, BUN 10 D, Creatinine 0.60, Estimated Creat Clear 47, Estimated GFR 100, Est GFR ( Amer) 121, Glucose 136 H, Calcium 8.4, Magnesium 1.7 D, Total Bilirubin 0.2, AST 44 H D, ALT 30 D, Alkaline Phosphatase 106, Troponin I < 0.01, C-Reactive Protein 92.0 H D, NT-Pro-B Natriuret Pep 5150 H, Total Protein 6.4, Albumin 2.8 L, Globulin 3.6 H, Albumin/Globulin Ratio 0.8 L 01/07/25 08:12: POC Glucose 126 H 01/07/25 16:09: POC Glucose 129 H I & O for Last 24 hours: Intake & Output 01/04/25 01/05/25 01/06/25 01/07/25 23:59 23:59 23:59 23:59 Intake Total 1465 / 1465 810 / 810 980 / 980 670 / 670 Output Total 2650 / 2650 2215 / 2700 3325 / 3325 1945 / 1945 Balance -1185 / -1185 -1405 / -1890 -2345 / -2345 -1275 / -1275 Weight 54.522 kg 49.623 kg 52.753 kg 52.845 kg Microbiology Reports for the Last 24 Hours: Microbiology 01/01/25 13:20 Transbronchial Biopsy - Right Lower Lobe - Final 01/01/25 13:20 Transbronchial Biopsy - Right Lower Lobe - Final 01/01/25 13:20 Transbronchial Biopsy - Right Lower Lobe - Final 01/01/25 13:20 Transbronchial Biopsy - Right Lower Lobe Acid Fast Bacilli Smear - Final 01/01/25 13:20 Bronchial Lavage - Right Lower Lobe - Final 01/01/25 13:20 Bronchial Lavage - Right Lower Lobe - Final 01/01/25 13:20 Bronchial Lavage - Right Lower Lobe - Final 01/01/25 13:20 Bronchial Lavage - Right Lower Lobe Acid Fast Bacilli Smear - Final 01/01/25 13:20 Bronchial Lavage - Left Lower Lobe - Final 01/01/25 13:20 Bronchial Lavage - Left Lower Lobe - Final 01/01/25 13:20 Bronchial Lavage - Left Lower Lobe - Final 01/01/25 13:20 Bronchial Lavage - Left Lower Lobe Acid Fast Bacilli Smear - Final 12/31/24 09:00 Sputum - Expectorated Sputum - Final 12/31/24 09:00 Sputum - Expectorated Sputum - Final Constitutional Constitutional: no acute distress and cachectic *Routine HEENT Exam Head: Present normocephalic Eye: Present EOMI and PERRL ENT: Present mucous membranes moist *Routine Neck Exam Neck: Present supple; Absent lymphadenopathy *Routine Respiratory Exam Respiratory: Present rhonchi and wheezes; Absent CTA bilaterally *Routine Cardiovascular Exam Cardiovascular: Present RRR *Routine Abdominal Exam Abdominal: Present soft and normoactive bowel sounds; Absent tenderness *Routine Extremities Exam Extremities: Absent cyanosis, clubbing or edema *Routine Skin Exam Skin: Present warm; Absent rash *Routine Neurological Exam Neurological: Present alert and oriented X3 Assessment and Plan *Assessment and plan (1) Right lower lobe pneumonia: Status: Acute Qualifiers: Pneumonia type: due to methicillin-resistant Staphylococcus aureus (MRSA) Qualified Code(s): J15.212 - Pneumonia due to Methicillin resistant Staphylococcus aureus Category: Medical Code(s): J18.9 - Pneumonia, unspecified organism (2) Acute urinary retention: Status: Acute Category: Medical Code(s): R33.8 - Other retention of urine (3) MRSA pneumonia: Status: Acute Qualifiers: Laterality: right Lung location: lower lobe of lung Qualified Code(s): J15.212 - Pneumonia due to Methicillin resistant Staphylococcus aureus Category: Medical Code(s): J15.212 - Pneumonia due to Methicillin resistant Staphylococcus aureus (4) Acute respiratory failure with hypoxemia: Status: Acute Category: Medical Code(s): J96.01 - Acute respiratory failure with hypoxia (5) Severe protein-calorie malnutrition: Status: Acute Category: Medical Code(s): E43 - Unspecified severe protein-calorie malnutrition (6) SIADH (syndrome of inappropriate ADH production): Status: Acute Category: Medical Code(s): E22.2 - Syndrome of inappropriate secretion of antidiuretic hormone (7) Hyponatremia: Status: Acute Category: Medical Code(s): E87.1 - Hypo-osmolality and hyponatremia Plan Patient is a 64-year-old female with a medical history of COPD, hypertension, extensive smoking history, chronic hyponatremia, CAD presents with progressive functional decline, shortness of breath, productive cough. She was recently discharged about a week ago in stable condition after treatment for right lobar pneumonia. Patient states she did well for a few days at home and finished her course of Augmentin, however over the past few days she became increasingly short of breath, productive cough and profound weakness. She denies chest pain, abdominal pain. Patient at this time is not the best historian given her lethargy workup in the ED significant for WBC 8.1, sodium 125, BNP 2070. CTA revealed extensive right lower lobe pneumonia, hilar adenopathy. CT abdomen/pelvis suggestive of fluid-filled bowels, and severely distended urinary bladder. Still requiring Vapotherm. Interactive on exam today. Still requiring 100% FiO2 however showing improvement clinically. Denies any chest pain. No nausea or vomiting. Problems addressed as follows: #Acute hypoxic respiratory failure #MRSA multifocal pneumonia #Hilar adenopathy ? Initial CTA revealed right lobar pneumonia. No leukocytosis or signs of sepsis at that time. Tachypnea improved, no signs of sepsis at this time. Confusion improved today. ? Will continue supplemental oxygen to maintain goal sats greater 90%. ? Discussed case with pulmonology, continue Vapotherm 40 L 40%. Wean as tolerated ? Repeat CXR 01/06/2025 shows improvement in consolidations, atelectasis, effusions. ? Continue DuoNebs every 6 hours along with Pulmicort twice daily. ? Will continue Zyvox twice daily (today is day 10) and Bactrim double strength twice daily. Sputum culture showing MRSA and Stenotrophomonas maltophilia, but also suggesting cryptogenic pneumonia per pulmonology. ? Continue diuretics with oral Lasix 40 mg daily. ? White count remains normal at 7.7. Hemoglobin 9.3. Inflammatory markers elevated with CRP of 240 and ESR 125. ? Follow-up CBC, ESR, CRP. ? Continue incentive spirometer. #HFrEF #Right heart failure #Moderate posterior pericardial effusion ? Initial BNP 1999, with 3+ pitting edema. Likely further exacerbated by protein/nutritional deficiencies. ? Repeat limited ECHO 01/06/2025 reveals LVEF 45% with global hypokinesis indicating stress-induced cardiomyopathy. There is also a moderate-sized loc alized posterior pericardial effusion, 1.4 cm, with no tamponade physiology. ? Cardiology consulted, agreed with starting metoprolol succinate 25 mg, Entresto, spironolactone 25 mg. ? Weaned to oral Lasix 40 mg daily today. ? Monitor renal function, electrolytes. #Acute on chronic hyponatremia ? Sodium 125 on admission. Sodium stable at 127, chloride 85. Continue to fl uid restrict less than 1500 cc a day. ? Consistent with SIADH based on labs earlier this month with urine sodium in the 50s. Inappropriately elevated. ? Continue sodium chloride replacement with 1000 mg twice daily p.o. #COPD exacerbation ? Current smoker. COPD seems slightly exacerbated today; continue DuoNebs, Pulmicort. Hold Trelegy. #Cognitive decline ? Per patient's brother, patient has had cognitive decline since Thanks. He believes that patient is not adequately taking care of herself at home, does not always remember to take her medications, does have boyfriend but he is not around every day. ? Patient is waxing and waning in confusion during hospitalization. Could be hospital-acquired delirium with underlying dementia. ? There is some concern for dementia given progressive cognitive changes. ? CT head 12/18/2024 shows mild atrophy. #Physical deconditioning #Functional decline #Severe protein calorie malnutrition ? TFTs, B12, folate normal. Low vitamin D, will replete daily. ? PT/OT consulted, recommended home with home health; continue to work with patient daily. ? Will provide high-protein shakes with meals. #Anemia ? Hemoglobin stable at 9.3. No active signs of bleeding. transfusion threshold hemoglobin less than 7. #Urinary retention ? Severely distended bladder on initial CT, multiple attempts to remove Ramos. Replaced on 01/01 due to failed voiding trial. Will refer to urology as an outpatient. #Hypertension ? Hold home lisinopril today. #GERD ? Continue home PPI. Full code DVT prophylaxis: Lovenox 40 mg
[2025-01-07] MEDS: SACUBITRIL/VALSARTAN 24-26MG TABLET 1 EACH PO (20:08)
[2025-01-07] MEDS: PANTOPRAZOLE 40MG TABLET 40 MG PO (20:08)
[2025-01-07 20:19] LABS: POC Glucose,Bedside 216 (70-110)
[2025-01-08] VITALS (33 sets, daily range): BP systolic 110–167; BP diastolic 52–81; PULSE 58–87; RESP 10–20; TEMP 36.2–37; O2SAT 86–97; BMI 19.8
[2025-01-08] MEDS: IPRATROPIUM/ALBUTEROL 3 ML NEB IH ×2 (00:27→19:12)
[2025-01-08] MEDS: SULFAMETHOXAZOLE/TRIMETHOPRIM 10 ML in DEXTROSE 5 % IN WATER 250 ML 173.333 ML IV ×2 (01:10→16:01)
[2025-01-08 02:18] LABS: POC Glucose,Bedside 204 (70-110)
[2025-01-08] MEDS: HALOPERIDOL LACTATE 5 MG/ML VIAL 4 MG IV (05:05)
[2025-01-08 06:24] LABS: Basophils % 0.2 % (0.1-2.0); Hematocrit 30.6 % (37.0-47.0); Hemoglobin 9.7 g/dL (12.2-16.2); Lymphocytes # 0.6 K/mm3 (0.7-4.5); Lymphocytes % 12.8 % (10-50); Mean Corpuscular HGB Conc 31.7 g/dL (31.8-35.4); Monocytes # 0.4 K/mm3 (0.1-1.0); Neutrophils # 3.5 K/mm3 (1.8-7.8); Neutrophils % 77.1 % (37.0-80.0); Platelet Count 196 K/mm3 (142-424); Red Blood Count 3.73 M/mm3 (4.20-5.40); Red Cell Distribution Width 16.8 % (11.5-17.5); White Blood Count 4.5 K/mm3 (4.8-10.8)
[2025-01-08 06:25] LABS: Chloride 87 mmol/L (98-107); Potassium 4.1 mmoL/L (3.5-5.1); Sodium 128 mmol/L (136-145)
[2025-01-08 06:34] LABS: C-Reactive Protein 53.6 mg/L (0-4)
[2025-01-08 06:37] LABS: NT Pro Brain Natriuretic Pep. 3530 pg/mL (0-125)
[2025-01-08 06:57] LABS: Erythrocyte Sedimentation Rate 128 mm/hr (0-30)
[2025-01-08 07:17] LABS: Alanine Aminotransferase 33 U/L (12-78); Albumin Level 2.8 g/dl (3.5-5.0); Albumin/Globulin Ratio 0.8 (1.1-1.8); Alkaline Phosphatase 100 U/L (38-126); Anion Gap 11.1 mEq/L (5-15); Aspartate Amino Transferase 34 U/L (14-36); Blood Urea Nitrogen 16 mg/dl (7-17); Calcium 8.6 mg/dl (8.4-10.2); Carbon Dioxide 34 mmol/L (22.0-30.0); Creatinine Clearance Estimated 48 mL/min (50-200); Estimated Glomerular Filt Rate 124 ml/min (>60); GFR (African American) 150 ML/MIN (>60); Globulin 3.7 g/dL (1.3-3.2); Glucose 68 mg/dl (74-100); Magnesium 1.8 mg/dl (1.6-2.3); Total Protein,Serum 6.5 g/dl (6.3-8.2)
[2025-01-08 07:20] LABS: Bilirubin,Total 0.1 mg/dl (0.2-1.3)
[2025-01-08] MEDS: predniSONE 20MG TAB 40 MG PO (08:42)
[2025-01-08] MEDS: CHOLECALCIFEROL 1,000 UNITS (25MCG) TABLET 50 MCG PO (08:43)
[2025-01-08] MEDS: ENOXAPARIN 40MG/0.4ML SYRINGE 40 MG SUBCUT (08:43)
[2025-01-08] MEDS: NYSTATIN SUSP 500,000 UNITS/5ML UDC 500000 UNIT PO ×4 (08:43→20:14)
[2025-01-08] MEDS: METOPROLOL SUCCINATE XL 25MG TABLET 25 MG PO (08:44)
[2025-01-08] MEDS: FUROSEMIDE 40 MG TABLET PO (08:45)
[2025-01-08] MEDS: SACUBITRIL/VALSARTAN 24-26MG TABLET 1 EACH PO ×2 (08:59→20:14)
[2025-01-08] MEDS: SPIRONOLACTONE 25MG TABLET 25 MG PO (09:00)
[2025-01-08] MEDS: SODIUM CHLORIDE 1,000MG TABLET 1000 MG PO ×2 (09:00→20:14)
--- NOTE | 2025-01-08 09:25 | EXP.PULM.PN ---
Subjective *Date: 01/08/25 *Time: 13:21 Interval history: No acute respiratory vents overnight. Patient admits improving respiratory symptoms. Pulmonology Exam Inpatient Vital signs and Labs for Last 24 Hours: Temp Pulse Resp BP Pulse Ox O2 Del Method O2 Flow Rate 97.1 F L 80 12 127/62 91 L Vapotherm 40 01/08/25 07:01 01/08/25 08:00 01/08/25 08:00 01/08/25 08:00 01/08/25 08:00 01/08/25 07:01 01/08/25 07:01 FiO2 50 01/08/25 06:24 Laboratory Results - last 24 hr 01/07/25 07:45: Troponin I < 0.01 01/07/25 16:09: POC Glucose 129 H 01/07/25 20:12: POC Glucose 216 H 01/08/25 02:08: POC Glucose 204 H 01/08/25 05:27: WBC 4.5 L, RBC 3.73 L, Hgb 9.7 L, Hct 30.6 L, MCV 82.0, MCH 26.0 L, MCHC 31.7 L, RDW 16.8, Plt Count 196, MPV 9.0, Neut % (Auto) 77.1, Lymph % (Auto) 12.8, [place] % (Auto) 9.0, Eos % (Auto) 0.0 L, Baso % (Auto) 0.2, Neut # (Auto) 3.5, Lymph # (Auto) 0.6 L, [place] # (Auto) 0.4, Eos # (Auto) 0.0, Baso # (Auto) 0.0, ESR 128 H, Sodium 128 L, Potassium 4.1, Chloride 87 L, Carbon Dioxide 34 H, Anion Gap 11.1, BUN 16 D, Creatinine 0.50 L, Estimated Creat Clear 48, Estimated GFR 124, Est GFR ( Amer) 150 D, Glucose 68 L D, Calcium 8.6, Magnesium 1.8, Total Bilirubin 0.1 L, AST 34, ALT 33, Alkaline Phosphatase 100, C-Reactive Protein 53.6 H D, NT-Pro-B Natriuret Pep 3530 H, Total Protein 6.5, Albumin 2.8 L, Globulin 3.7 H, Albumin/Globulin Ratio 0.8 L I & O for Labs for Last 24 Hours: Intake & Output 01/05/25 01/06/25 01/07/25 01/08/25 23:59 23:59 23:59 23:59 Intake Total 810 / 810 980 / 980 790 / 1040 500 / 500 Output Total 2215 / 2700 3325 / 3325 2870 / 3120 800 / 800 Balance -1405 / -1890 -2345 / -2345 -2080 / -2080 -300 / -300 Weight 109 lb 6.4 oz 116 lb 4.8 oz 116 lb 8.052 oz 119 lb 0.794 oz Constitutional: Present severe distress Comment:: Intubated and Sedated Head: Present normocephalic and atraumatic Neck: Present normal inspection and trachea midline Respiratory: Present patient mechanically ventilated, prolonged expiratory phase, rhonchi, wheezes, diminished air movement and able to speak in complete sentences Cardiac: Present S1/S2 and Tachycardia GI: Present soft; Absent distention or tenderness Skin: Present intact; Absent cyanosis Neuro: Present alert, awake and oriented x 3 Extremities: Present normal inspection; Absent clubbing or cyanosis Psychiatric: Present normal affect Assessment and Plan *Assessment and plan (1) Right lower lobe pneumonia: Status: Acute Qualifiers: Pneumonia type: due to methicillin-resistant Staphylococcus aureus (MRSA) Qualified Code(s): J15.212 - Pneumonia due to Methicillin resistant Staphylococcus aureus Category: Medical Code(s): J18.9 - Pneumonia, unspecified organism (2) Acute respiratory failure with hypoxemia: Status: Acute Category: Medical Code(s): J96.01 - Acute respiratory failure with hypoxia (3) Unresolved pneumonia: Status: Acute Category: Medical Code(s): J18.9 - Pneumonia, unspecified organism (4) MRSA pneumonia: Status: Acute Qualifiers: Laterality: right Lung location: lower lobe of lung Qualified Code(s): J15.212 - Pneumonia due to Methicillin resistant Staphylococcus aureus Category: Medical Code(s): J15.212 - Pneumonia due to Methicillin resistant Staphylococcus aureus Plan Ms. Kruse is a 64-year-old female with reported history of COPD hypertension CAD chronic hyponatremia recently discharged from the hospital for right lobar pneumonia on Augmentin presented with worsening respiratory distress found be hypotensive needing vasopressor support and pulmonary was called for further evaluation and management. Patient during her recent admission found to be having the right lower lobe dense consolidative changes, initiated on ceftriaxone and azithromycin on admission, discharged home on Augmentin. Current smoker greater than 30 PPD. At baseline not using oxygen supplementation during the daytime until most recent discharge. Prescribed nocturnal oxygen supplementation however has not been compliant. Chest x-ray from this morning continue to show right lower lobe airspace disease that appeared to be improved on recent admission. CTA upon admission evidence of pulmonary embolism. Continued symptoms of right lower lobe consolidative changes. No sputum cultures available from recent admission. Mild neutrophilic predominant leukocytosis. Comprehensive respiratory viral PCR panel negative Repeat CT chest reviewed, worsening right lower lobe consolidative changes and a small right effusion. Sputum Cultures MRSA on vancomycin, changed to Linezolid Status post bronchoscopy with copious amount of mucoid secretions. Concerning right lower lobe endobronchial lesion status post biopsy. Repeat sputum cultures grew stenotrophomonas along with MRSA, initiated on Bactrim along with continuation of linezolid. Repeat bronc and tracheal aspirate cultures continue to show MRSA Repeat CTA no evidence of pulmonary embolism. Continue to bilateral lower lobe predominant airspace disease along with atelectasis. Bilateral effusions noted. Interval Update: No acute respiratory events overnight. Stable leukocytosis. Improving oxygen requirements. Continue to receive, Bactrim and prednisone. Completed 14-day course of linezolid. Plan: Continue Bactrim for a total of 10-day course from initiation (initiated on Bactrim on 2024 for stenotrophomonas pneumonia) COntinue Prednisone 40 mg daily Continue high flow nasal cannula oxygen supplementation to maintain O2 saturation goal of 90% and above. Weaned to 25 L 50% this morning reviewed. Continue to wean as tolerated. F/U PT OT. Out of bed to chair. Activity as tolerated. Continue chest percussion therapy along with Mucomyst twice daily Incentive spirometry and flutter valve DuoNebs every 6 hours along with Pulmicort Q12 scheduled No need for thoracentesis/chest tube placement for the noted bilateral effusions at this point of time. She continue to receive diuretics with net negative volume status. Will follow.
--- NOTE | 2025-01-08 09:30 | PC.NURSE ---
Per Dr. Eric pt is to start bladder training in hopes of removing the indwelling catheter. pt motta clamped at this time.
--- NOTE | 2025-01-08 10:51 | EXP.CARD.PN ---
Subjective Subjective Date: 01/08/25 Time: 10:52 Principal diagnosis: pericardial effusion, pneumonia Interval history: 64 yo WF sitting in chair watching television in no acute distress. No complaints of chest pain, pressure or tightness. Telemetry shows sinus rhythm. Exam Data for Last 24 hours Vital signs and Labs for Last 24 Hours: Temp Pulse Resp BP Pulse Ox O2 Del Method O2 Flow Rate 97.1 F L 71 10 L 133/64 89 L Vapotherm 25 01/08/25 07:01 01/08/25 10:00 01/08/25 10:00 01/08/25 10:00 01/08/25 10:00 01/08/25 10:00 01/08/25 10:00 FiO2 50 01/08/25 06:24 Laboratory Results - last 24 hr 01/07/25 07:45: Troponin I < 0.01 01/07/25 16:09: POC Glucose 129 H 01/07/25 20:12: POC Glucose 216 H 01/08/25 02:08: POC Glucose 204 H 01/08/25 05:27: WBC 4.5 L, RBC 3.73 L, Hgb 9.7 L, Hct 30.6 L, MCV 82.0, MCH 26.0 L, MCHC 31.7 L, RDW 16.8, Plt Count 196, MPV 9.0, Neut % (Auto) 77.1, Lymph % (Auto) 12.8, [place] % (Auto) 9.0, Eos % (Auto) 0.0 L, Baso % (Auto) 0.2, Neut # (Auto) 3.5, Lymph # (Auto) 0.6 L, [place] # (Auto) 0.4, Eos # (Auto) 0.0, Baso # (Auto) 0.0, ESR 128 H, Sodium 128 L, Potassium 4.1, Chloride 87 L, Carbon Dioxide 34 H, Anion Gap 11.1, BUN 16 D, Creatinine 0.50 L, Estimated Creat Clear 48, Estimated GFR 124, Est GFR ( Amer) 150 D, Glucose 68 L D, Calcium 8.6, Magnesium 1.8, Total Bilirubin 0.1 L, AST 34, ALT 33, Alkaline Phosphatase 100, C-Reactive Protein 53.6 H D, NT-Pro-B Natriuret Pep 3530 H, Total Protein 6.5, Albumin 2.8 L, Globulin 3.7 H, Albumin/Globulin Ratio 0.8 L I & O for Last 24 hours: Intake & Output 01/05/25 01/06/25 01/07/25 01/08/25 11:59 11:59 11:59 11:59 Intake Total 490 / 490 1290 / 1290 710 / 710 1080 / 1080 Output Total 3520 / 3640 2495 / 2795 2950 / 3225 2044 / 204 Balance -3030 / -3150 -1205 / -1505 -2240 / -2515 -965 / -965 Weight 109 lb 6.4 oz 116 lb 4.8 oz 116 lb 8.052 oz 119 lb 0.794 oz Constitutional Constitutional: no acute distress *Routine Respiratory Exam Respiratory: Present decreased breath sounds; Absent wheezes *Routine Cardiovascular Exam Cardiovascular: Present RRR Progress Note: A&P Assessment and plan (1) Right lower lobe pneumonia: Status: Acute (2) Acute respiratory failure with hypoxemia: Status: Acute (3) Unresolved pneumonia: Status: Acute (4) MRSA pneumonia: Status: Acute (5) Acute HFrEF (heart failure with reduced ejection fraction): Status: Acute (6) Pericardial effusion without cardiac tamponade: Status: Acute Assessment and Plan Assessment and Plan for All Diagnoses:: 1. Moderate posterior Pericardial effusion without tamponade -incidental finding without clinical impact at this time. -follow and treat only if becomes clinically important -repeat echo as outpatient in 3-4 wks 2. Resp failure with hypoxia, COPD -Multifocal Pneumonia with MRSA -Antibiotics and steroids per Pulmonary -continues on vapotherm 3. New systolic cardiomyopathy with LVEF 45%/HFrEF without regional wall motion abnormalities -likely due to prolonged resp illness -significant coronary artery calcifications on chest CT. Will need ischemic evaluation in future (outpatient workup ok) -troponins normal -continue metoprolol with entresto (new this admission) -continue lasix and spironolactone while monitoring renal function and potassium 4. Anemia, stable -Hgb 9.7 5. Cognitive decline -mild atrophy on head CT -hyponatremia, improved at 128 Continue current treatment. Nothing new to add at this time.
--- NOTE | 2025-01-08 11:27 | PC.NURSE ---
pt called out and reported she had the urge to urinate. motta unclamped at this time. 300ml of unrine output measured via urometer.
--- NOTE | 2025-01-08 18:44 | P.PN_ITS ---
Subjective *Date: 01/08/25 *Time: 18:44 Interval history: Continues to improve, weaned Vapotherm to 25 L. Exam Data for Last 24 hours Vital signs and Labs for Last 24 Hours: Temp Pulse Resp BP Pulse Ox O2 Del Method O2 Flow Rate 97.6 F 82 20 161/77 H 94 L Vapotherm 25 01/08/25 16:00 01/08/25 18:00 01/08/25 16:00 01/08/25 18:00 01/08/25 18:00 01/08/25 18:00 01/08/25 18:00 FiO2 50 01/08/25 08:00 Laboratory Results - last 24 hr 01/07/25 20:12: POC Glucose 216 H 01/08/25 02:08: POC Glucose 204 H 01/08/25 05:27: WBC 4.5 L, RBC 3.73 L, Hgb 9.7 L, Hct 30.6 L, MCV 82.0, MCH 26.0 L, MCHC 31.7 L, RDW 16.8, Plt Count 196, MPV 9.0, Neut % (Auto) 77.1, Lymph % (Auto) 12.8, [place] % (Auto) 9.0, Eos % (Auto) 0.0 L, Baso % (Auto) 0.2, Neut # (Auto) 3.5, Lymph # (Auto) 0.6 L, [place] # (Auto) 0.4, Eos # (Auto) 0.0, Baso # (Auto) 0.0, ESR 128 H, Sodium 128 L, Potassium 4.1, Chloride 87 L, Carbon Dioxide 34 H, Anion Gap 11.1, BUN 16 D, Creatinine 0.50 L, Estimated Creat Clear 48, Estimated GFR 124, Est GFR ( Amer) 150 D, Glucose 68 L D, Calcium 8.6, Magnesium 1.8, Total Bilirubin 0.1 L, AST 34, ALT 33, Alkaline Phosphatase 100, C-Reactive Protein 53.6 H D, NT-Pro-B Natriuret Pep 3530 H, Total Protein 6.5, Albumin 2.8 L, Globulin 3.7 H, Albumin/Globulin Ratio 0.8 L I & O for Last 24 hours: Intake & Output 01/05/25 01/06/25 01/07/25 01/08/25 23:59 23:59 23:59 23:59 Intake Total 810 / 810 980 / 980 790 / 1040 1220 / 1220 Output Total 2215 / 2700 3325 / 3325 2870 / 3120 975 / 975 Balance -1405 / -1890 -2345 / -2345 -2080 / -2079 245 / 245 Weight 49.623 kg 52.753 kg 52.845 kg 54 kg Constitutional Constitutional: no acute distress *Routine HEENT Exam Head: Present normocephalic Eye: Present EOMI and PERRL ENT: Present mucous membranes moist *Routine Neck Exam Neck: Present supple; Absent lymphadenopathy *Routine Respiratory Exam Respiratory: Present CTA bilaterally *Routine Cardiovascular Exam Cardiovascular: Present RRR *Routine Abdominal Exam Abdominal: Present soft and normoactive bowel sounds; Absent tenderness *Routine Extremities Exam Extremities: Absent cyanosis, clubbing or edema *Routine Skin Exam Skin: Present warm; Absent rash *Routine Neurological Exam Neurological: Present alert and oriented X3 Assessment and Plan *Assessment and plan (1) Right lower lobe pneumonia: Status: Acute Qualifiers: Pneumonia type: due to methicillin-resistant Staphylococcus aureus (MRSA) Qualified Code(s): J15.212 - Pneumonia due to Methicillin resistant Staphylococcus aureus Category: Medical Code(s): J18.9 - Pneumonia, unspecified organism (2) Acute urinary retention: Status: Acute Category: Medical Code(s): R33.8 - Other retention of urine (3) MRSA pneumonia: Status: Acute Qualifiers: Laterality: right Lung location: lower lobe of lung Qualified Code(s): J15.212 - Pneumonia due to Methicillin resistant Staphylococcus aureus Category: Medical Code(s): J15.212 - Pneumonia due to Methicillin resistant Staphylococcus aureus (4) Acute respiratory failure with hypoxemia: Status: Acute Category: Medical Code(s): J96.01 - Acute respiratory failure with hypoxia (5) Severe protein-calorie malnutrition: Status: Acute Category: Medical Code(s): E43 - Unspecified severe protein-calorie malnutrition (6) SIADH (syndrome of inappropriate ADH production): Status: Acute Category: Medical Code(s): E22.2 - Syndrome of inappropriate secretion of antidiuretic hormone (7) Hyponatremia: Status: Acute Category: Medical Code(s): E87.1 - Hypo-osmolality and hyponatremia Plan Patient is a 64-year-old female with a medical history of COPD, hypertension, extensive smoking history, chronic hyponatremia, CAD presents with progressive functional decline, shortness of breath, productive cough. She was recently discharged about a week ago in stable condition after treatment for right lobar pneumonia. Patient states she did well for a few days at home and finished her course of Augmentin, however over the past few days she became increasingly short of breath, productive cough and profound weakness. She denies chest pain, abdominal pain. Patient at this time is not the best historian given her lethargy workup in the ED significant for WBC 8.1, sodium 125, BNP 2069. CTA revealed extensive right lower lobe pneumonia, hilar adenopathy. CT abdomen/pelvis suggestive of fluid-filled bowels, and severely distended urinary bladder. Still requiring Vapotherm. Interactive on exam today. Still requiring 100% FiO2 however showing improvement clinically. Denies any chest pain. No nausea or vomiting. Problems addressed as follows: #Acute hypoxic respiratory failure #MRSA multifocal pneumonia #Cryptogenic pneumonia #Hilar adenopathy ? Initial CTA revealed right lobar pneumonia. No leukocytosis or signs of sepsis at that time. Tachypnea improved, no signs of sepsis at this time. Confusion improved today. ? Will continue supplemental oxygen to maintain goal sats greater 90%. ? Weaned Vapotherm to 25 L 50%. ? Repeat CXR 01/06/2025 shows improvement in consolidations, atelectasis, effusions. ? Continue DuoNebs every 6 hours along with Pulmicort twice daily. ? Completed 10 days of Zyvox. Continue Bactrim double strength twice daily for 10 days, started on 01/02/2025. Sputum culture showing MRSA and Stenotrophomonas maltophilia, but also suggesting cryptogenic pneumonia per pulmonology. ? Continue prednisone 40 mg daily for cryptogenic pneumonia. ? Continue diuretics with oral Lasix 40 mg daily. ? White count remains normal at 7.7. Hemoglobin 9.3. Inflammatory markers elevated with CRP of 240 and ESR 125. ? Follow-up CBC, ESR, CRP. ? Continue incentive spirometer. ? Continue BiPAP nightly for atelectasis. #HFrEF #Right heart failure #Moderate posterior pericardial effusion ? Initial BNP 1999, with 3+ pitting edema. Likely further exacerbated by protein/nutritional deficiencies. ? Repeat limited ECHO 01/06/2025 reveals LVEF 45% with global hypokinesis indicating stress-induced cardiomyopathy. There is also a moderate-sized localized posterior pericardial effusion, 1.4 cm, with no tamponade physiology. ? Cardiology consulted, agreed with starting metoprolol succinate 25 mg, Entresto, spironolactone 25 mg. ? Weaned to oral Lasix 40 mg daily today. ? Monitor renal function, electrolytes. #Acute on chronic hyponatremia ? Sodium 125 on admission. Sodium stable at 127, chloride 85. Continue to fluid restrict less than 1500 cc a day. ? Consistent with SIADH based on labs earlier this month with urine sodium in the 50s. Inappropriately elevated. ? Continue sodium chloride replacement with 1000 mg twice daily p.o. #COPD exacerbation ? Current smoker. COPD seems slightly exacerbated today; continue DuoNebs, Pulmicort. Hold Trelegy. #Cognitive decline ? Per patient's brother, patient has had cognitive decline since . He believes that patient is not adequately taking care of herself at home, does not always remember to take her medications, does have boyfriend but he is not around every day. ? Patient is waxing and waning in confusion during hospitalization. Could be hospital-acquired delirium with underlying dementia. ? There is some concern for dementia given progressive cognitive changes. ? CT head 12/18/2024 shows mild atrophy. #Physical deconditioning #Functional decline #Severe protein calorie malnutrition ? TFTs, B12, folate normal. Low vitamin D, will replete daily. ? PT/OT consulted, recommended home with home health; continue to work with patient daily. ? Will provide high-protein shakes with meals. #Anemia ? Hemoglobin stable at 9.3. No active signs of bleeding. transfusion threshold hemoglobin less than 7. #Urinary retention ? Severely distended bladder on initial CT, multiple attempts to remove Ramos. Replaced on 01/01 due to failed voiding trial. Will refer to urology as an outpatient. #Hypertension ? Hold home lisinopril today. #GERD ? Continue home PPI. Full code DVT prophylaxis: Lovenox 40 mg
[2025-01-08] MEDS: BUDESONIDE 0.5MG/2ML NEB 0.5 MG IH (19:12)
[2025-01-08] MEDS: ACETYLCYSTEINE 20% 4ML VIAL 2 ML IH (19:12)
[2025-01-08] MEDS: PANTOPRAZOLE 40MG TABLET 40 MG PO (20:14)
[2025-01-09] VITALS (31 sets, daily range): BP systolic 104–167; BP diastolic 53–86; PULSE 68–110; RESP 12–22; TEMP 35.2–36.5; O2SAT 88–97
[2025-01-09] MEDS: IPRATROPIUM/ALBUTEROL 3 ML NEB IH ×4 (00:09→18:54)
[2025-01-09] MEDS: SULFAMETHOXAZOLE/TRIMETHOPRIM 10 ML in DEXTROSE 5 % IN WATER 250 ML 173.333 ML IV ×2 (01:41→14:32)
--- NOTE | 2025-01-09 05:53 | PC.NURSE ---
Pt did well throughout shift. A/O x2, pleasant and cooperative. Tolerated bipap for est. 6 hours while asleep, vapotherm 25L/50% while awake with sat >90%. Lung sounds diminished throughout this AM. NSR on telemetry. Pt has refused to sleep in bed and has preferred to stay in chair. Pt has been encouraged to shift weight often. Chair alarm in place for pt safety. Call light within reach.
[2025-01-09 06:18] LABS: Basophils % 0.2 % (0.1-2.0); Hematocrit 31.2 % (37.0-47.0); Hemoglobin 9.9 g/dL (12.2-16.2); Lymphocytes # 0.8 K/mm3 (0.7-4.5); Lymphocytes % 17.9 % (10-50); Mean Corpuscular HGB Conc 31.7 g/dL (31.8-35.4); Mean Corpuscular Hemoglobin 26.3 pg (27.0-31.2); Mean Platelet Volume 9.1 fl (7.4-10.4); Monocytes # 0.4 K/mm3 (0.1-1.0); Monocytes % 9.1 % (1.7-9.3); Neutrophils # 3.3 K/mm3 (1.8-7.8); Neutrophils % 72.1 % (37.0-80.0); Platelet Count 218 K/mm3 (142-424); Red Blood Count 3.76 M/mm3 (4.20-5.40); Red Cell Distribution Width 16.8 % (11.5-17.5); White Blood Count 4.5 K/mm3 (4.8-10.8)
[2025-01-09] MEDS: ACETYLCYSTEINE 20% 4ML VIAL 2 ML IH ×2 (06:23→18:55)
[2025-01-09] MEDS: BUDESONIDE 0.5MG/2ML NEB 0.5 MG IH ×2 (06:23→18:55)
--- NOTE | 2025-01-09 06:30 | PC.NURSE ---
Ramos catheter removed at this time.
[2025-01-09 06:33] LABS: Albumin Level 2.9 g/dl (3.5-5.0); Albumin/Globulin Ratio 0.8 (1.1-1.8); Alkaline Phosphatase 97 U/L (38-126); Blood Urea Nitrogen 16 mg/dl (7-17); Calcium 8.7 mg/dl (8.4-10.2); Carbon Dioxide 37 mmol/L (22.0-30.0); Creatinine Clearance Estimated 48 mL/min (50-200); Estimated Glomerular Filt Rate 160 ml/min (>60); GFR (African American) 194 ML/MIN (>60); Globulin 3.8 g/dL (1.3-3.2); Glucose 83 mg/dl (74-100); Total Protein,Serum 6.7 g/dl (6.3-8.2)
[2025-01-09 06:36] LABS: Alanine Aminotransferase 32 U/L (12-78); Anion Gap 6.9 mEq/L (5-15); Aspartate Amino Transferase 30 U/L (14-36); Chloride 90 mmol/L (98-107); Magnesium 1.8 mg/dl (1.6-2.3); Potassium 3.9 mmoL/L (3.5-5.1); Sodium 130 mmol/L (136-145)
[2025-01-09 06:39] LABS: C-Reactive Protein 30.1 mg/L (0-4)
[2025-01-09 06:42] LABS: NT Pro Brain Natriuretic Pep. 1700 pg/mL (0-125)
[2025-01-09 06:48] LABS: Bilirubin,Total 0.1 mg/dl (0.2-1.3)
[2025-01-09 07:39] LABS: Erythrocyte Sedimentation Rate 92 mm/hr (0-30)
[2025-01-09] MEDS: NYSTATIN SUSP 500,000 UNITS/5ML UDC 500000 UNIT PO ×4 (08:33→21:54)
[2025-01-09] MEDS: FUROSEMIDE 40 MG TABLET PO (08:33)
[2025-01-09] MEDS: METOPROLOL SUCCINATE XL 25MG TABLET 25 MG PO (08:33)
[2025-01-09] MEDS: CHOLECALCIFEROL 1,000 UNITS (25MCG) TABLET 50 MCG PO (08:33)
[2025-01-09] MEDS: ENOXAPARIN 40MG/0.4ML SYRINGE 40 MG SUBCUT (08:33)
[2025-01-09] MEDS: predniSONE 20MG TAB 40 MG PO (08:33)
[2025-01-09] MEDS: SODIUM CHLORIDE 1,000MG TABLET 1000 MG PO ×2 (08:33→21:54)
[2025-01-09] MEDS: SACUBITRIL/VALSARTAN 24-26MG TABLET 1 EACH PO ×2 (08:34→21:54)
[2025-01-09] MEDS: SPIRONOLACTONE 25MG TABLET 25 MG PO (08:38)
--- NOTE | 2025-01-09 10:07 | P.PN_ITS ---
Subjective *Date: 01/09/25 *Time: 13:44 Interval history: No acute respiratory vents overnight. Patient admits continued improvement in her respiratory symptoms Pulmonology Exam Inpatient Vital signs and Labs for Last 24 Hours: Temp Pulse Resp BP Pulse Ox O2 Del Method O2 Flow Rate 97.7 F 85 14 126/68 92 L Vapotherm 25 01/09/25 08:00 01/09/25 10:01/09/25 10:01/09/25 10:01/09/25 10:01/09/25 10:01/09/25 10:00 FiO2 50 01/09/25 08:00 Laboratory Results - last 24 hr 01/09/25 05:24: WBC 4.5 L, RBC 3.76 L, Hgb 9.9 L, Hct 31.2 L, MCV 83.0, MCH 26.3 L, MCHC 31.7 L, RDW 16.8, Plt Count 218, MPV 9.1, Neut % (Auto) 72.1, Lymph % (Auto) 17.9, [place] % (Auto) 9.1, Eos % (Auto) 0.0 L, Baso % (Auto) 0.2, Neut # (Auto) 3.3, Lymph # (Auto) 0.8, [place] # (Auto) 0.4, Eos # (Auto) 0.0, Baso # (Auto) 0.0, ESR 92 H, Sodium 130 L, Potassium 3.9, Chloride 90 L, Carbon Dioxide 37 H, Anion Gap 6.9, BUN 16, Creatinine 0.40 L, Estimated Creat Clear 48, Estimated GFR 160, Est GFR ( Amer) 194 D, Glucose 83 D, Calcium 8.7, Magnesium 1.8, Total Bilirubin 0.1 L, AST 30, ALT 32, Alkaline Phosphatase 97, C-Reactive Protein 30.1 H D, NT-Pro-B Natriuret Pep 1700 H, Total Protein 6.7, Albumin 2.9 L, Globulin 3.8 H, Albumin/Globulin Ratio 0.8 L I & O for Labs for Last 24 Hours: Intake & Output 01/06/25 01/07/25 01/08/25 01/09/25 23:59 23:59 23:59 23:59 Intake Total 980 / 980 790 / 1040 1497 / 1497 460 / 460 Output Total 3325 / 3325 2870 / 3120 3175 / 3175 625 / 625 Balance -2345 / -2345 -2080 / -2080 -1678 / -1678 -165 / -165 Weight 116 lb 4.8 oz 116 lb 8.052 oz 119 lb 0.794 oz Constitutional: Present severe distress Comment:: Intubated and Sedated Head: Present normocephalic and atraumatic Neck: Present normal inspection and trachea midline Respiratory: Present patient mechanically ventilated, rhonchi, diminished air movement and able to speak in complete sentences; Absent wheezes Cardiac: Present S1/S2 and Tachycardia GI: Present soft; Absent distention or tenderness Skin: Present intact; Absent cyanosis Neuro: Present alert, awake and oriented x 3 Extremities: Present normal inspection; Absent clubbing or cyanosis Psychiatric: Present normal affect Assessment and Plan *Assessment and plan (1) Right lower lobe pneumonia: Status: Acute Qualifiers: Pneumonia type: due to methicillin-resistant Staphylococcus aureus (MRSA) Qualified Code(s): J15.212 - Pneumonia due to Methicillin resistant Staphylococcus aureus Category: Medical Code(s): J18.9 - Pneumonia, unspecified organism (2) Acute respiratory failure with hypoxemia: Status: Acute Category: Medical Code(s): J96.01 - Acute respiratory failure with hypoxia (3) Unresolved pneumonia: Status: Acute Category: Medical Code(s): J18.9 - Pneumonia, unspecified organism (4) MRSA pneumonia: Status: Acute Qualifiers: Laterality: right Lung location: lower lobe of lung Qualified Code(s): J15.212 - Pneumonia due to Methicillin resistant Staphylococcus aureus Category: Medical Code(s): J15.212 - Pneumonia due to Methicillin resistant Staphylococcus aureus Plan Ms. Kruse is a 64-year-old female with reported history of COPD hypertension CAD chronic hyponatremia recently discharged from the hospital for right lobar pneumonia on Augmentin presented with worsening respiratory distress found be hypotensive needing vasopressor support and pulmonary was called for further evaluation and management. Patient during her recent admission found to be having the right lower lobe dense consolidative changes, initiated on ceftriaxone and azithromycin on admission, discharged home on Augmentin. Current smoker greater than 30 PPD. At baseline not using oxygen supplementation during the daytime until most recent discharge. Prescribed nocturnal oxygen supplementation however has not been compliant. Chest x-ray from this morning continue to show right lower lobe airspace disease that appeared to be improved on recent admission. CTA upon admission evidence of pulmonary embolism. Continued symptoms of right lower lobe consolidative c hanges. No sputum cultures available from recent admission. Mild neutrophilic predominant leukocytosis. Comprehensive respiratory viral PCR panel negative Repeat CT chest reviewed, worsening right lower lobe consolidative changes and a small right effusion. Sputum Cultures MRSA on vancomycin, changed to Linezolid Status post bronchoscopy with copious amount of mucoid secretions. Concerning right lower lobe endobronchial lesion status post biopsy. Repeat sputum cultures grew stenotrophomonas along with MRSA, initiated on Bactrim along with continuation of linezolid. Repeat bronc and tracheal aspirate cultures continue to show MRSA Repeat CTA no evidence of pulmonary embolism. Continue to bilateral lower lobe predominant airspace disease along with atelectasis. Bilateral effusions noted. Interval Update: No acute respiratory events overnight. Stable leukocytosis. Improving oxygen requirements. Continue to receive, Bactrim and prednisone. Completed 14-day course of linezolid. Plan: Continue Bactrim for a total of 10-day course from initiation (initiated on Bactrim on 2024 for stenotrophomonas pneumonia) COntinue Prednisone 40 mg daily x 2weeks Weaned to nasal cannula oxygen supplementation to maintain O2 saturation goal of 90% F/U PT OT. Out of bed to chair. Activity as tolerated. Continue chest percussion therapy along with Mucomyst twice daily Incentive spirometry and flutter valve DuoNebs every 6 hours along with Pulmicort Q12 scheduled No need for thoracentesis/chest tube placement for the noted bilateral effusions at this point of time. She continue to receive diuretics with net negative volume status. Will follow.
--- NOTE | 2025-01-09 17:00 | PC.NURSE ---
pt HAS BEEN UP TO CHAIR THROUGHOUT THE DAY. pt WAS PLACED ON A BAIRHUGGER AT SHIFT CHANGE THIS AM DUE TO A LOW TEMPERATURE. ELLA HUGGER WAS REMOVED @1200 DUE TO TEMPERATURE RETURNING TO NORMAL. pt TRANSFERS TO AND FROM [facility] [place] VOIDING WITH STANDBY ASSISTANCE. CALL LIGHT IS WITHIN REACH AND NO NEEDS ARE VOICED AT THIS TIME.
--- NOTE | 2025-01-09 17:25 | EXP.PN ---
Subjective *Date: 01/09/25 *Time: 17:25 Interval history: Patient feeling much better today, weaned to 5 L nasal cannula. Ramos removed with appropriate urine output Exam Data for Last 24 hours Vital signs and Labs for Last 24 Hours: Temp Pulse Resp BP Pulse Ox O2 Del Method O2 Flow Rate 97.4 F L 90 16 143/72 H 97 Nasal Cannula 5 01/09/25 16:00 01/09/25 16:00 01/09/25 16:00 01/09/25 16:00 01/09/25 16:00 01/09/25 17:00 01/09/25 17:00 FiO2 40 01/09/25 14:00 Laboratory Results - last 24 hr 01/09/25 05:24: WBC 4.5 L, RBC 3.76 L, Hgb 9.9 L, Hct 31.2 L, MCV 83.0, MCH 26.3 L, MCHC 31.7 L, RDW 16.8, Plt Count 218, MPV 9.1, Neut % (Auto) 72.1, Lymph % (Auto) 17.9, [place] % (Auto) 9.1, Eos % (Auto) 0.0 L, Baso % (Auto) 0.2, Neut # (Auto) 3.3, Lymph # (Auto) 0.8, [place] # (Auto) 0.4, Eos # (Auto) 0.0, Baso # (Auto) 0.0, ESR 92 H, Sodium 130 L, Potassium 3.9, Chloride 90 L, Carbon Dioxide 37 H, Anion Gap 6.9, BUN 16, Creatinine 0.40 L, Estimated Creat Clear 48, Estimated GFR 160, Est GFR ( Amer) 194 D, Glucose 83 D, Calcium 8.7, Magnesium 1.8, Total Bilirubin 0.1 L, AST 30, ALT 32, Alkaline Phosphatase 97, C-Reactive Protein 30.1 H D, NT-Pro-B Natriuret Pep 1700 H, Total Protein 6.7, Albumin 2.9 L, Globulin 3.8 H, Albumin/Globulin Ratio 0.8 L I & O for Last 24 hours: Intake & Output 01/06/25 01/07/25 01/08/25 01/09/25 23:59 23:59 23:59 23:59 Intake Total 980 / 980 790 / 1040 1497 / 1497 1130 / 1130 Output Total 3325 / 3325 2870 / 3120 3175 / 3175 2024 / 2024 Balance -2345 / -2345 -0 / -2080 -1678 / -1678 -895 / -895 Weight 52.753 kg 52.845 kg 54 kg Constitutional Constitutional: no acute distress *Routine HEENT Exam Head: Present normocephalic Eye: Present EOMI and PERRL ENT: Present mucous membranes moist *Routine Neck Exam Neck: Present supple; Absent lymphadenopathy *Routine Respiratory Exam Respiratory: Present CTA bilaterally *Routine Cardiovascular Exam Cardiovascular: Present RRR *Routine Abdominal Exam Abdominal: Present soft and normoactive bowel sounds; Absent tenderness *Routine Extremities Exam Extremities: Absent cyanosis, clubbing or edema *Routine Skin Exam Skin: Present warm; Absent rash *Routine Neurological Exam Neurological: Present alert and oriented X3 Assessment and Plan *Assessment and plan (1) Right lower lobe pneumonia: Status: Acute Qualifiers: Pneumonia type: due to methicillin-resistant Staphylococcus aureus (MRSA) Qualified Code(s): J15.212 - Pneumonia due to Methicillin resistant Staphylococcus aureus Category: Medical Code(s): J18.9 - Pneumonia, unspecified organism (2) Acute urinary retention: Status: Acute Category: Medical Code(s): R33.8 - Other retention of urine (3) MRSA pneumonia: Status: Acute Qualifiers: Laterality: right Lung location: lower lobe of lung Qualified Code(s): J15.212 - Pneumonia due to Methicillin resistant Staphylococcus aureus Category: Medical Code(s): J15.212 - Pneumonia due to Methicillin resistant Staphylococcus aureus (4) Acute respiratory failure with hypoxemia: Status: Acute Category: Medical Code(s): J96.01 - Acute respiratory failure with hypoxia (5) Severe protein-calorie malnutrition: Status: Acute Category: Medical Code(s): E43 - Unspecified severe protein-calorie malnutrition (6) SIADH (syndrome of inappropriate ADH production): Status: Acute Category: Medical Code(s): E22.2 - Syndrome of inappropriate secretion of antidiuretic hormone (7) Hyponatremia: Status: Acute Category: Medical Code(s): E87.1 - Hypo-osmolality and hyponatremia Plan Patient is a 64-year-old female with a medical history of COPD, hypertension, extensive smoking history, chronic hyponatremia, CAD presents with progressive functional decline, shortness of breath, productive cough. She was recently discharged about a week ago in stable condition after treatment for right lobar pneumonia. Patient states she did well for a few days at home and finished her course of Augmentin, however over the past few days she became increasingly short of breath, productive cough and profound weakness. She denies chest pain, abdominal pain. Patient at this time is not the best historian given her lethargy workup in the ED significant for WBC 8.1, sodium 125, BNP 2069. CTA revealed extensive right lower lobe pneumonia, hilar adenopathy. CT abdomen/pelvis suggestive of fluid-filled bowels, and severely distended urinary bladder. Still requiring Vapotherm. Interactive on exam today. Still requiring 100% FiO2 however showing improvement clinically. Denies any chest pain. No nausea or vomiting. Problems addressed as follows: #Acute hypoxic respiratory failure #MRSA multifocal pneumonia #Cryptogenic pneumonia #Hilar adenopathy ? Initial CTA revealed right lobar pneumonia. No leukocytosis or signs of sepsis at that time. Tachypnea improved, no signs of sepsis at this time. Confusion improved today. ? Repeat CXR 01/06/2025 shows improvement in consolidations, atelectasis, effusions. ? Weaned to 5 L nasal cannula saturating 97% this afternoon. ? Continue DuoNebs every 6 hours along with Pulmicort twice daily. ? Completed 10 days of Zyvox. Continue Bactrim double strength twice daily for 10 days, started on 01/02/2025. Sputum culture showing MRSA and Stenotrophomonas maltophilia, but also suggesting cryptogenic pneumonia per pulmonology. ? Continue prednisone 40 mg daily for cryptogenic pneumonia. Pulmonology recommends a total of 2 weeks. ? Continue diuretics with oral Lasix 40 mg daily. ? White count remains normal at 7.7. Hemoglobin 9.3. CRP, ESR significantly improving. . ? Follow-up CBC, ESR, CRP. ? Continue incentive spirometer. #HFrEF #Right heart failure #Moderate posterior pericardial effusion ? Initial BNP 1999, with 3+ pitting edema. Likely further exacerbated by protein/nutritional deficiencies. ? Repeat limited ECHO 01/06/2025 reveals LVEF 45% with global hypokinesis indicating stress-induced cardiomyopathy. There is also a moderate-sized localized posterior pericardial effusion, 1.4 cm, with no tamponade physiology. ? Cardiology consulted, agreed with starting metoprolol succinate 25 mg, Entresto, spironolactone 25 mg. ? Continue Lasix 40 mg daily. ? Monitor renal function, electrolytes. #Acute on chronic hyponatremia ? Sodium 125 on admission. Sodium stable at 127, chloride 85. Continue to fluid restrict less than 1500 cc a day. ? Consistent with SIADH based on labs earlier this month with urine sodium in the 50s. Inappropriately elevated. ? Continue sodium chloride replacement with 1000 mg twice daily p.o. #COPD exacerbation ? Current smoker. COPD seems slightly exacerbated today; continue DuoNebs, Pulmicort. Hold Trelegy. #Cognitive decline ? Per patient's brother, patient has had cognitive decline since . He believes that patient is not adequately taking care of herself at home, does not always remember to take her medications, does have boyfriend but he is not around every day. ? Patient is waxing and waning in confusion during hospitalization. Could be hospital-acquired delirium with underlying dementia. ? There is some concern for dementia given progressive cognitive changes. ? CT head 12/18/2024 shows mild atrophy. ? Patient's mentation, cognition has gradually improved during hospital course. #Physical deconditioning #Functional decline #Severe protein calorie malnutrition ? TFTs, B12, folate normal. Low vitamin D, will replete daily. ? PT/OT consulted, recommended home with home health; continue to work with patient daily. ? Will provide high-protein shakes with meals. #Anemia ? Hemoglobin stable at 9.3. No active signs of bleeding. transfusion threshold hemoglobin less than 7. #Urinary retention ? Severely distended bladder on initial CT, multiple attempts to remove Ramos. ? Ramos successfully removed this morning, having appropriate urine output. #Hypertension ? Hold home lisinopril today. #GERD ? Continue home PPI. Full code DVT prophylaxis: Lovenox 40 mg
[2025-01-09] MEDS: PANTOPRAZOLE 40MG TABLET 40 MG PO (21:54)
[2025-01-10] VITALS (31 sets, daily range): BP systolic 114–157; BP diastolic 53–84; PULSE 68–97; RESP 10–20; TEMP 34.1–36.7; O2SAT 86–95; BMI 16.4
[2025-01-10] MEDS: IPRATROPIUM/ALBUTEROL 3 ML NEB IH ×5 (00:16→23:21)
--- NOTE | 2025-01-10 01:23 | PC.NURSE ---
Patient refusing to wear her BiPAP at this time. No signs of distress noted. Patient tolerating her 4 Liter nasal cannula well.
[2025-01-10] MEDS: SULFAMETHOXAZOLE/TRIMETHOPRIM 10 ML in DEXTROSE 5 % IN WATER 250 ML 173.333 ML IV ×2 (02:58→13:48)
[2025-01-10] MEDS: BUDESONIDE 0.5MG/2ML NEB 0.5 MG IH ×2 (05:56→18:49)
[2025-01-10] MEDS: ACETYLCYSTEINE 20% 4ML VIAL 2 ML IH ×2 (05:56→18:49)
--- NOTE | 2025-01-10 05:57 | PC.NURSE ---
Rectal Temp is 96.0, patient refusing bear hugger and blankets to be applied at this time, despite staff encouragement. Patient is up to chair at this time. Pull alarm in place.
[2025-01-10 06:11] LABS: POC Glucose,Bedside 139 (70-110)
--- NOTE | 2025-01-10 06:23 | PC.NURSE ---
pt alert oriented x1 to self. pt up in chair. refused bipap throughout the night. continues to refuse renan hugger to get temp up. pt refuses blanket while in chair. pt oxygen was titrated down to 2lpm but pt oxygen started dropping into the 70s while sleeping pt is now back up to 6lpm via nc. pt has non adherant pad to coccyx area. chair alarm on for pt safety.
[2025-01-10] MEDS: CHOLECALCIFEROL 1,000 UNITS (25MCG) TABLET 50 MCG PO (08:15)
[2025-01-10] MEDS: SACUBITRIL/VALSARTAN 24-26MG TABLET 1 EACH PO ×2 (08:15→20:28)
[2025-01-10] MEDS: NICOTINE 21MG/24HR PATCH 21 MG TD (08:15)
[2025-01-10] MEDS: SODIUM CHLORIDE 1,000MG TABLET 1000 MG PO ×2 (08:15→20:28)
[2025-01-10] MEDS: SPIRONOLACTONE 25MG TABLET 25 MG PO (08:15)
[2025-01-10] MEDS: NYSTATIN SUSP 500,000 UNITS/5ML UDC 500000 UNIT PO ×4 (08:16→20:28)
[2025-01-10] MEDS: ENOXAPARIN 40MG/0.4ML SYRINGE 40 MG SUBCUT (08:16)
[2025-01-10] MEDS: FUROSEMIDE 40 MG TABLET PO (08:16)
[2025-01-10] MEDS: METOPROLOL SUCCINATE XL 25MG TABLET 25 MG PO (08:16)
[2025-01-10] MEDS: predniSONE 20MG TAB 40 MG PO (08:16)
[2025-01-10 08:21] LABS: Eosinophils % 0.4 % (0.1-12.0); Hematocrit 31.1 % (37.0-47.0); Hemoglobin 9.9 g/dL (12.2-16.2); Lymphocytes # 0.8 K/mm3 (0.7-4.5); Lymphocytes % 14.4 % (10-50); Mean Corpuscular HGB Conc 31.8 g/dL (31.8-35.4); Mean Corpuscular Hemoglobin 26.1 pg (27.0-31.2); Mean Corpuscular Volume 82.1 fl (81-99); Monocytes # 0.4 K/mm3 (0.1-1.0); Monocytes % 7.4 % (1.7-9.3); Neutrophils # 4.2 K/mm3 (1.8-7.8); Neutrophils % 77.1 % (37.0-80.0); Platelet Count 233 K/mm3 (142-424); Red Blood Count 3.79 M/mm3 (4.20-5.40); Red Cell Distribution Width 16.9 % (11.5-17.5); White Blood Count 5.4 K/mm3 (4.8-10.8)
[2025-01-10 08:46] LABS: Alanine Aminotransferase 31 U/L (12-78); Albumin Level 2.8 g/dl (3.5-5.0); Albumin/Globulin Ratio 0.8 (1.1-1.8); Alkaline Phosphatase 94 U/L (38-126); Anion Gap 7.4 mEq/L (5-15); Aspartate Amino Transferase 26 U/L (14-36); Blood Urea Nitrogen 15 mg/dl (7-17); Calcium 8.6 mg/dl (8.4-10.2); Carbon Dioxide 34 mmol/L (22.0-30.0); Chloride 91 mmol/L (98-107); Creatinine Clearance Estimated 48 mL/min (50-200); Estimated Glomerular Filt Rate 84 ml/min (>60); GFR (African American) 102 ML/MIN (>60); Globulin 3.7 g/dL (1.3-3.2); Glucose 79 mg/dl (74-100); Magnesium 1.7 mg/dl (1.6-2.3); Potassium 4.4 mmoL/L (3.5-5.1); Sodium 128 mmol/L (136-145); Total Protein,Serum 6.5 g/dl (6.3-8.2)
[2025-01-10 08:48] LABS: Bilirubin,Total < 0.1 mg/dl (0.2-1.3)
[2025-01-10 08:51] LABS: Erythrocyte Sedimentation Rate 65 mm/hr (0-30)
[2025-01-10] MEDS: MAGNESIUM SULFATE IN WATER 2 GM/50 ML PIGGYBACK IV ×2 (10:56→12:21)
[2025-01-10 11:06] LABS: Coronavirus 19, PCR Not Detected (NotDetected); Influenza A, PCR Not Detected (NotDetected); Influenza B, PCR Not Detected (NotDetected)
--- NOTE | 2025-01-10 17:53 | PC.NURSE ---
Pt has been alert to self and time throughout most of the shift. her mentation has waxed and waned periodically this shift and has needed occasional reminders as to where she is. pt has remained stable on 6lpm/nc. pt lung sounds are diminished throughout with scattered rhonchi. pt pulses in feet are faint and ble have 2+ pitting edema. pt bowel sounds are active in all quads and pt has had a bm this shift. pt has been up to the chair and has been able to walk back and forth in the room with PT and SRNA this shift.
--- NOTE | 2025-01-10 18:47 | P.PN_ITS ---
Subjective *Date: 01/10/25 *Time: 18:47 Interval history: States she feels better today. However requiring 6 L nasal cannula. Refusing BiPAP at night likely leading to atelectasis. Encouraged to use incentive spirometer. Exam Data for Last 24 hours Vital signs and Labs for Last 24 Hours: Temp Pulse Resp BP Pulse Ox O2 Del Method O2 Flow Rate 97.6 F 80 16 145/75 H 88 L Nasal Cannula 6 01/10/25 16:11 01/10/25 16:13 01/10/25 16:11 01/10/25 16:11 01/10/25 16:57 01/10/25 17:58 01/10/25 17:58 FiO2 40 01/09/25 14:00 Laboratory Results - last 24 hr 01/09/25 07:58: POC Glucose 139 H 01/10/25 06:49: WBC 5.4, RBC 3.79 L, Hgb 9.9 L, Hct 31.1 L, MCV 82.1, MCH 26.1 L , MCHC 31.8, RDW 16.9, Plt Count 233, MPV 9.0, Neut % (Auto) 77.1, Lymph % (Auto) 14.4, [place] % (Auto) 7.4, Eos % (Auto) 0.4, Baso % (Auto) 0.0 L, Neut # (Auto) 4.2, Lymph # (Auto) 0.8, [place] # (Auto) 0.4, Eos # (Auto) 0.0, Baso # (Auto) 0.0, ESR 65 H, Sodium 128 L, Potassium 4.4, Chloride 91 L, Carbon Dioxide 34 H, Anion Gap 7.4, BUN 15, Creatinine 0.70 D, Estimated Creat Clear 48, Estimated GFR 84, Est GFR ( Amer) 102 D, Glucose 79, Calcium 8.6, Magnesium 1.7, Total Bilirubin < 0.1 L, AST 26, ALT 31, Alkaline Phosphatase 94, C-Reactive Protein 18.0 H D, Total Protein 6.5, Albumin 2.8 L, Globulin 3.7 H, Albumin/Globulin Ratio 0.8 L 01/10/25 09:29: SARS-CoV-2 (PCR) Not detected, Influenza A Untype (PCR) Not detected, Influenza Type B (PCR) Not detected I & O for Last 24 hours: Intake & Output 01/07/25 01/08/25 01/09/25 01/10/25 23:59 23:59 23:59 23:59 Intake Total 790 / 1040 1497 / 1497 1230 / 1230 952 / 952 Output Total 2870 / 3120 3175 / 3175 2925 / 2925 3910 / 3910 Balance -2080 / -2080 -1678 / -1678 -1695 / -1695 -2958 / -2958 Weight 52.845 kg 54 kg 44.622 kg Constitutional Constitutional: no acute distress *Routine HEENT Exam Head: Present normocephalic Eye: Present EOMI and PERRL ENT: Present mucous membranes moist *Routine Neck Exam Neck: Present supple; Absent lymphadenopathy *Routine Respiratory Exam Respiratory: Present CTA bilaterally *Routine Cardiovascular Exam Cardiovascular: Present RRR *Routine Abdominal Exam Abdominal: Present soft and normoactive bowel sounds; Absent tenderness *Routine Extremities Exam Extremities: Absent cyanosis, clubbing or edema *Routine Skin Exam Skin: Present warm; Absent rash *Routine Neurological Exam Neurological: Present alert and oriented X3 Assessment and Plan *Assessment and plan (1) Right lower lobe pneumonia: Status: Acute Qualifiers: Pneumonia type: due to methicillin-resistant Staphylococcus aureus (MRSA) Qualified Code(s): J15.212 - Pneumonia due to Methicillin resistant Staphylococcus aureus Category: Medical Code(s): J18.9 - Pneumonia, unspecified organism (2) Acute urinary retention: Status: Acute Category: Medical Code(s): R33.8 - Other retention of urine (3) MRSA pneumonia: Status: Acute Qualifiers: Laterality: right Lung location: lower lobe of lung Qualified Code(s): J15.212 - Pneumonia due to Methicillin resistant Staphylococcus aureus Category: Medical Code(s): J15.212 - Pneumonia due to Methicillin resistant Staphylococcus aureus (4) Acute respiratory failure with hypoxemia: Status: Acute Category: Medical Code(s): J96.01 - Acute respiratory failure with hypoxia (5) Severe protein-calorie malnutrition: Status: Acute Category: Medical Code(s): E43 - Unspecified severe protein-calorie malnutrition (6) SIADH (syndrome of inappropriate ADH production): Status: Acute Category: Medical Code(s): E22.2 - Syndrome of inappropriate secretion of antidiuretic hormone (7) Hyponatremia: Status: Acute Category: Medical Code(s): E87.1 - Hypo-osmolality and hyponatremia Plan Patient is a 64-year-old female with a medical history of COPD, hypertension, extensive smoking history, chronic hyponatremia, CAD presents with progressive functional decline, shortness of breath, productive cough. She was recently discharged about a week ago in stable condition after treatment for right lobar pneumonia. Patient states she did well for a few days at home and finished her course of Augmentin, however over the past few days she became increasingly short of breath, productive cough and profound weakness. She denies chest pain, abdominal pain. Patient at this time is not the best historian given her lethargy workup in the ED significant for WBC 8.1, sodium 125, BNP 2070. CTA revealed extensive right lower lobe pneumonia, hilar adenopathy. CT abdomen/pelvis suggestive of fluid-filled bowels, and severely distended urinary bladder. Still requiring Vapotherm. Interactive on exam today. Still requiring 100% FiO2 however showing improvement clinically. Denies any chest pain. No nausea or vomiting. Problems addressed as follows: #Acute hypoxic respiratory failure #MRSA multifocal pneumonia #Cryptogenic pneumonia #Hilar adenopathy ? Initial CTA revealed right lobar pneumonia. No leukocytosis or signs of sepsis at that time. Tachypnea improved, no signs of sepsis at this time. Confusion improved today. ? Repeat CXR 01/06/2025 shows improvement in consolidations, atelectasis, effusions. ?Requiring increased to 6 L nasal cannula today saturating 90%, likely from atelectasis. Refusing BiPAP at night. Encouraged to use incentive spirometer. ? Continue DuoNebs every 6 hours along with Pulmicort twice daily. ? Completed 10 days of Zyvox. Continue Bactrim double strength twice daily for 10 days, started on 01/02/2025. Sputum culture showing MRSA and Stenotrophomonas maltophilia, but also suggesting cryptogenic pneumonia per pulmonology. ? Continue prednisone 40 mg daily for cryptogenic pneumonia. Pulmonology r ecommends a total of 2 weeks. ? Continue diuretics with oral Lasix 40 mg daily. ? White count remains normal at 7.7. Hemoglobin 9.3. CRP, ESR significantly improving. . ? Follow-up CBC, ESR, CRP. ? Continue incentive spirometer. #HFrEF #Right heart failure #Moderate posterior pericardial effusion ? Initial BNP 1999, with 3+ pitting edema. Likely further exacerbated by protein/nutritional deficiencies. ? Repeat limited ECHO 01/06/2025 reveals LVEF 45% with global hypokinesis indicating stress-induced cardiomyopathy. There is also a moderate-sized localized posterior pericardial effusion, 1.4 cm, with no tamponade physiology. ? Cardiology consulted, agreed with starting metoprolol succinate 25 mg, Entresto, spironolactone 25 mg. ? Continue Lasix 40 mg daily. ? Monitor renal function, electrolytes. #Acute on chronic hyponatremia ? Sodium 125 on admission. Sodium stable at 128, chloride 91. Continue to fluid restrict less than 1500 cc a day. ? Consistent with SIADH based on labs earlier this month with urine sodium in the 50s. Inappropriately elevated. ? Continue sodium chloride replacement with 1000 mg twice daily p.o. #COPD exacerbation ? Current smoker. COPD seems slightly exacerbated today; continue DuoNebs, Pulmicort. Hold Trelegy. #Cognitive decline ? Per patient's brother, patient has had cognitive decline since . He believes that patient is not adequately taking care of herself at home, does not always remember to take her medications, does have boyfriend but he is not around every day. ? Patient is waxing and waning in confusion during hospitalization. Could be hospital-acquired delirium with underlying dementia. ? There is some concern for dementia given progressive cognitive changes. ? CT head 12/18/2024 shows mild atrophy. ? Patient's mentation, cognition has gradually improved during hospital course. #Physical deconditioning #Functional decline #Severe protein calorie malnutrition ? TFTs, B12, folate normal. Low vitamin D, will replete daily. ? PT/OT consulted, recommended home with home health; continue to work with patient daily. ? Will provide high-protein shakes with meals. #Anemia ? Hemoglobin stable at 9.3. No active signs of bleeding. transfusion threshold hemoglobin less than 7. #Urinary retention ? Severely distended bladder on initial CT, multiple attempts to remove Ramos. ? Ramos successfully removed this morning, having appropriate urine output. #Hypertension ? Hold home lisinopril today. #GERD ? Continue home PPI. Full code DVT prophylaxis: Lovenox 40 mg
[2025-01-10] MEDS: PANTOPRAZOLE 40MG TABLET 40 MG PO (20:28)
--- NOTE | 2025-01-10 22:40 | PC.WOUNDNOTE ---
when SRNA was bathing patient, dressing had to be removed d/t stool on dressing. At this time it was noticed that red spot on bottom had opened up. New dressing applied at this time
[2025-01-11] VITALS (13 sets, daily range): BP systolic 117–134; BP diastolic 57–73; PULSE 75–102; RESP 11–18; TEMP 36.1–36.5; O2SAT 73–96; BMI 16.9
[2025-01-11] MEDS: SULFAMETHOXAZOLE/TRIMETHOPRIM 10 ML in DEXTROSE 5 % IN WATER 250 ML 173.333 ML IV (01:38)
--- NOTE | 2025-01-11 04:14 | PC.NURSE ---
Addendum entered by Rosey Garrett RN 01/11/25 04:21: dressing also replaced on coccyx this shift, open area found underneath, picture on chart, new dressing applied Original Note: pt has sat up t/o most of shift,has been intermittently confused, remains on 6L O2, lung sounds diminished with expiratory rhonchi noted, 2+ pitting edema to BLE, pt up to BSC multiple times t/o shift with standby assist, when removing blood pressure cuff at 0400, blood soaked dressing found, dressing removed and a skin tear was noted, new dressing applied, pt reminded to not pick at skin, pt has to be redirected multiple times during shift that she cannot go smoke, bed alarm and pull safety on t/o shift
[2025-01-11] MEDS: IPRATROPIUM/ALBUTEROL 3 ML NEB IH (05:38)
[2025-01-11] MEDS: BUDESONIDE 0.5MG/2ML NEB 0.5 MG IH (05:38)
[2025-01-11] MEDS: ACETYLCYSTEINE 20% 4ML VIAL 2 ML IH (05:39)
[2025-01-11] MEDS: ACETAMINOPHEN 325MG TAB 650 MG PO (06:21)
[2025-01-11 07:15] LABS: Basophils % 0.1 % (0.1-2.0); Eosinophils % 0.1 % (0.1-12.0); Hematocrit 33.3 % (37.0-47.0); Hemoglobin 10.5 g/dL (12.2-16.2); Lymphocytes % 12.1 % (10-50); Mean Corpuscular HGB Conc 31.5 g/dL (31.8-35.4); Mean Corpuscular Hemoglobin 26.4 pg (27.0-31.2); Mean Corpuscular Volume 83.7 fl (81-99); Mean Platelet Volume 9.3 fl (7.4-10.4); Monocytes # 0.5 K/mm3 (0.1-1.0); Monocytes % 6.2 % (1.7-9.3); Neutrophils # 6.4 K/mm3 (1.8-7.8); Platelet Count 260 K/mm3 (142-424); Red Blood Count 3.98 M/mm3 (4.20-5.40); White Blood Count 7.9 K/mm3 (4.8-10.8)
[2025-01-11 07:29] LABS: Albumin Level 3.3 g/dl (3.5-5.0); Chloride 84 mmol/L (98-107); Potassium 4.2 mmoL/L (3.5-5.1); Sodium 127 mmol/L (136-145)
[2025-01-11 07:32] LABS: Alanine Aminotransferase 34 U/L (12-78); Albumin/Globulin Ratio 0.8 (1.1-1.8); Alkaline Phosphatase 107 U/L (38-126); Anion Gap 9.2 mEq/L (5-15); Aspartate Amino Transferase 29 U/L (14-36); Bilirubin,Total 0.2 mg/dl (0.2-1.3); Blood Urea Nitrogen 16 mg/dl (7-17); Calcium 8.6 mg/dl (8.4-10.2); Carbon Dioxide 38 mmol/L (22.0-30.0); Creatinine Clearance Estimated 41 mL/min (50-200); Estimated Glomerular Filt Rate 100 ml/min (>60); GFR (African American) 121 ML/MIN (>60); Globulin 4.2 g/dL (1.3-3.2); Glucose 117 mg/dl (74-100); Total Protein,Serum 7.5 g/dl (6.3-8.2)
[2025-01-11 07:33] LABS: Magnesium 2.2 mg/dl (1.6-2.3)
[2025-01-11 07:39] LABS: C-Reactive Protein 15.4 mg/L (0-4)
[2025-01-11] MEDS: NICOTINE 21MG/24HR PATCH 21 MG TD (08:03)
[2025-01-11] MEDS: SACUBITRIL/VALSARTAN 24-26MG TABLET 1 EACH PO (08:03)
[2025-01-11] MEDS: SODIUM CHLORIDE 1,000MG TABLET 1000 MG PO (08:03)
[2025-01-11] MEDS: METOPROLOL SUCCINATE XL 25MG TABLET 25 MG PO (08:03)
[2025-01-11] MEDS: NYSTATIN SUSP 500,000 UNITS/5ML UDC 500000 UNIT PO ×2 (08:03→13:39)
[2025-01-11] MEDS: FUROSEMIDE 40 MG TABLET PO (08:03)
[2025-01-11] MEDS: SPIRONOLACTONE 25MG TABLET 25 MG PO (08:03)
[2025-01-11] MEDS: predniSONE 20MG TAB 40 MG PO (08:04)
[2025-01-11] MEDS: CHOLECALCIFEROL 1,000 UNITS (25MCG) TABLET 50 MCG PO (08:04)
[2025-01-11] MEDS: ENOXAPARIN 40MG/0.4ML SYRINGE 40 MG SUBCUT (08:04)
[2025-01-11 08:10] LABS: Erythrocyte Sedimentation Rate 71 mm/hr (0-30)
--- NOTE | 2025-01-11 08:28 | XR_ITS ---
PROCEDURE INFORMATION: Exam: XR Chest Exam date and time: 01/11/2025 8:54 AM Age: 64 years old Clinical indication: Screening exam; Other screening; Additional info: F/u pnx TECHNIQUE: Imaging protocol: Radiologic exam of the chest. Views: 1 view. Total images: 1 COMPARISON: CR XR CHEST PORTABLE 01/06/2025 9:09 AM FINDINGS: Lungs: Interstitial prominence noted throughout both lungs. Pleural spaces: Apical pleural thickening noted bilaterally. Left pleural effusion. No definite evidence of pneumothorax as imaged. Further evaluation is recommended if symptoms persist. Heart/Mediastinum: The heart is not enlarged. Vasculature: Mild atherosclerotic disease. Bones/joints: Postoperative changes of the right shoulder and thoracolumbar spine. IMPRESSION: 1. Left pleural effusion. 2. No definite evidence of pneumothorax as imaged. Further evaluation is recommended if symptoms persist. 3. Interstitial prominence noted throughout both lungs.
--- NOTE | 2025-01-11 12:46 | EXP.DC.SUM ---
General Admission date:: 12/25/24 HPI HPI HPI: Marisa Kruse is a 64-year-old female with a medical history of COPD, hypertension, extensive smoking history, chronic hyponatremia, CAD presents with progressive functional decline, shortness of breath, productive cough. She was recently discharged about a week ago in stable condition after treatment for right lobar pneumonia. Patient states she did well for a few days at home and finished her course of Augmentin, however over the past few days she became increasingly short of breath, productive cough and profound weakness. She denies chest pain, abdominal pain. Patient at this time is not the best historian given her lethargy workup in the ED significant for WBC 8.1, sodium 125, BNP 2070. CTA revealed extensive right lower lobe pneumonia, hilar adenopathy. CT abdomen/pelvis suggestive of fluid-filled bowels, and severely distended urinary bladder. Ramos was placed with significant urine output. Case discussed with ED provider and decision was made to admit patient for acute hypoxic respiratory failure secondary to pneumonia, and functional decline. Hospital Course Hospital Course Hospital Course: Patient is a 64-year-old female with a medical history of COPD, hypertension, extensive smoking history, chronic hyponatremia, CAD presents with progressive functional decline, shortness of breath, productive cough and admitted for pneumonia and HFrEF. #Acute hypoxic respiratory failure #MRSA multifocal pneumonia #Cryptogenic pneumonia #Hilar adenopathy ? Initial CTA revealed right lobar pneumonia. No leukocytosis or signs of sepsis at that time. - Sputum culture showing MRSA and Stenotrophomonas maltophilia, but also suggesting cryptogenic pneumonia per pulmonology. - Gradually improved with broad spectrum antibiotics (including vancomycin, linezolid, Bactrim), prednisone, Lasix, breathing treatments. - Completed 10 of Zyvox, will continue Bactrim for a total of 10 days. - Weaned from Vapotherm to 3L nasal cannula. Saturating 73% on room air at rest. - Started Trelegy 100. - Advised to follow-up with pulmonology within 1 week. #HFrEF #Right heart failure #Moderate posterior pericardial effusion ? Initial BNP 1999, with 3+ pitting edema. Likely further exacerbated by protein/nutritional deficiencies. ? Repeat limited ECHO 01/06/2025 reveals LVEF 45% with global hypokinesis indicating stress-induced cardiomyopathy. There is also a moderate-sized localized posterior pericardial effusion, 1.4 cm, with no tamponade physiology. Stable. ? Cardiology consulted, started Lasix 40mg, metoprolol succinate 25 mg, Entresto, spironolactone 25 mg. ? Continue Lasix 40 mg daily. ? Monitor renal function, electrolytes. #Acute on chronic hyponatremia ? Sodium 125 on admission. Sodium stable at 127, chloride 84. ? Consistent with SIADH based on labs earlier this month with urine sodium in the 50s. Inappropriately elevated. ? Continue sodium chloride replacement with 1000 mg daily p.o. #COPD exacerbation ? Current smoker. Started Trelegy. #Physical deconditioning #Functional decline #Severe protein calorie malnutrition ? TFTs, B12, folate normal. Low vitamin D, will replete daily. ? PT/OT consulted, recommended home with home health. Family will assist patient at home. ? Will provide high-protein shakes with meals. #Anemia ? Hemoglobin stable at 10.5. No active signs of bleeding. transfusion threshold hemoglobin less than 7. #GERD ? Continue home PPI. Total time spent on discharge: 32 minutes on chart review, counseling, documentation, and direct care with patient. Exam Data for Last 24 hours Vital signs and Labs for Last 24 Hours: Temp Pulse Resp BP Pulse Ox O2 Del Method O2 Flow Rate 97.7 F 90 14 130/67 96 Nasal Cannula 5 01/11/25 08:12 01/11/25 08:31 01/11/25 08:12 01/11/25 08:12 01/11/25 08:12 01/11/25 09:09 01/11/25 09:09 FiO2 40 01/09/25 14:00 Laboratory Results - last 24 hr 01/11/25 06:40: WBC 7.9 D, RBC 3.98 L, Hgb 10.5 L, Hct 33.3 L, MCV 83.7, MCH 26.4 L, MCHC 31.5 L, RDW 17.0, Plt Count 260, MPV 9.3, Neut % (Auto) 81.0 H, Lymph % (Auto) 12.1, Duval % (Auto) 6.2, Eos % (Auto) 0.1, Baso % (Auto) 0.1, Neut # (Auto) 6.4, Lymph # (Auto) 1.0, Duval # (Auto) 0.5, Eos # (Auto) 0.0, Baso # (Auto) 0.0, ESR 71 H, Sodium 127 L, Potassium 4.2, Chloride 84 L, Carbon Dioxide 38 H, Anion Gap 9.2, BUN 16, Creatinine 0.60, Estimated Creat Clear 41, Estimated GFR 100, Est GFR ( Amer) 121, Glucose 117 H D, Calcium 8.6, Magnesium 2.2 D, Total Bilirubin 0.2, AST 29, ALT 34, Alkaline Phosphatase 107, C-Reactive Protein 15.4 H, Total Protein 7.5, Albumin 3.3 L D, Globulin 4.2 H, Albumin/Globulin Ratio 0.8 L I & O for Last 24 hours: Intake & Output 01/08/25 01/09/25 01/10/25 01/11/25 23:59 23:59 23:59 23:59 Intake Total 1497 / 1497 1230 / 1230 952 / 952 240 / 240 Output Total 3175 / 3175 2925 / 2925 4960 / 4960 800 / 800 Balance -1678 / -1678 -1695 / -1695 -4008 / -4008 -560 / -560 Weight 54 kg 44.622 kg 45.983 kg Constitutional Constitutional: no acute distress *Routine HEENT Exam Head: Present normocephalic Eye: Present EOMI and PERRL ENT: Present mucous membranes moist *Routine Neck Exam Neck: Present supple; Absent lymphadenopathy *Routine Respiratory Exam Respiratory: Present CTA bilaterally *Routine Cardiovascular Exam Cardiovascular: Present RRR *Routine Abdominal Exam Abdominal: Present soft and normoactive bowel sounds; Absent tenderness *Routine Extremities Exam Extremities: Absent cyanosis, clubbing or edema *Routine Skin Exam Skin: Present warm; Absent rash *Routine Neurological Exam Neurological: Present alert and oriented X3 Results Data Completed and Pending Labs on day of discharge: Labs from last 24 hours 01/11/25 06:40 WBC 7.9 D RBC 3.98 L Hgb 10.5 L Hct 33.3 L MCV 83.7 MCH 26.4 L MCHC 31.5 L RDW 17.0 Plt Count 260 MPV 9.3 Neut % (Auto) 81.0 H Lymph % (Auto) 12.1 Duval % (Auto) 6.2 Eos % (Auto) 0.1 Baso % (Auto) 0.1 Neut # (Auto) 6.4 Lymph # (Auto) 1.0 Duval # (Auto) 0.5 Eos # (Auto) 0.0 Baso # (Auto) 0.0 ESR 71 H Sodium 127 L Potassium 4.2 Chloride 84 L Carbon Dioxide 38 H Anion Gap 9.2 BUN 16 Creatinine 0.60 Estimated Creat Clear 41 Estimated GFR 100 Est GFR ( Amer) 121 Glucose 117 H D Calcium 8.6 Magnesium 2.2 D Total Bilirubin 0.2 AST 29 ALT 34 Alkaline Phosphatase 107 C-Reactive Protein 15.4 H Total Protein 7.5 Albumin 3.3 L D Globulin 4.2 H Albumin/Globulin Ratio 0.8 L DS: Diagnosis Discharge Diagnosis (1) Right lower lobe pneumonia: Status: Acute Code(s): J18.9 - Pneumonia, unspecified organism Qualifiers: Pneumonia type: due to methicillin-resistant Staphylococcus aureus (MRSA) Qualified Code(s): J15.212 - Pneumonia due to Methicillin resistant Staphylococcus aureus (2) Acute urinary retention: Status: Acute Code(s): R33.8 - Other retention of urine (3) MRSA pneumonia: Status: Acute Code(s): J15.212 - Pneumonia due to Methicillin resistant Staphylococcus aureus Qualifiers: Laterality: right Lung location: lower lobe of lung Qualified Code(s): J15.212 - Pneumonia due to Methicillin resistant Staphylococcus aureus (4) Acute respiratory failure with hypoxemia: Status: Acute Code(s): J96.01 - Acute respiratory failure with hypoxia (5) Severe protein-calorie malnutrition: Status: Acute Code(s): E43 - Unspecified severe protein-calorie malnutrition (6) SIADH (syndrome of inappropriate ADH production): Status: Acute Code(s): E22.2 - Syndrome of inappropriate secretion of antidiuretic hormone (7) Hyponatremia: Status: Acute Code(s): E87.1 - Hypo-osmolality and hyponatremia Meds Home Medications and Allergies Home Medications ?Medication ?Instructions ?Recorded ?Confirmed ?Type linaclotide 145 mcg capsule 145 mcg PO DAILY 01/16/22 12/25/24 History diclofenac sodium 75 mg 75 mg PO BIDP PRN ARTHRITIS PAIN 12/18/24 12/26/24 History tablet,delayed release fluticasone fur. 200 mcg-umeclid 1 inh inhalation DAILY 12/18/24 12/25/24 History 62.5 mcg-vilant 25 mcg inhalat.powder (Trelegy Ellipta) fluticasone propionate 50 1 spray intranasal DAILY 12/18/24 12/25/24 History mcg/actuation nasal spray,suspension omeprazole 20 mg capsule,delayed 20 mg PO DAILY 12/18/24 12/25/24 History release potassium chloride 20 mEq 20 meq PO DAILY 12/18/24 12/25/24 History tablet,extended release(part/cryst) rosuvastatin 10 mg tablet 10 mg PO HS 12/18/24 12/25/24 History nystatin 100,000 unit/mL oral 500,000 unit (5 mL) PO QID 10 days 12/19/24 12/25/24 Rx suspension #200 mL cetirizine 10 mg tablet 10 mg PO DAILY 12/26/24 12/26/24 History ergocalciferol (vitamin D2) 1,250 1,250 mcg PO WEEKLY 12/26/24 12/26/24 History mcg (50,000 unit) capsule fluticasone fur. 100 mcg-umeclid 1 inh inhalation DAILY 30 days #60 01/11/25 Rx 62.5 mcg-vilant 25 mcg ea inhalat.powder (Trelegy Ellipta) furosemide 40 mg tablet 40 mg PO DAILY 30 days #30 tabs 01/11/25 Rx ipratropium 0.5 mg-albuterol 3 mg 3 ml inhalation Q6HP PRN Shortness 01/11/25 Rx (2.5 mg base)/3 mL nebulization Of Breath 30 days #180 mL soln metoprolol succinate 25 mg 25 mg PO DAILY 30 days #30 tabs 01/11/25 Rx tablet,extended release 24 hr nicotine 21 mg/24 hr daily 21 mg transdermal DAILY 30 days 01/11/25 Rx transdermal patch #28 ea prednisone 20 mg tablet 40 mg (2 x 20 mg) PO DAILY 7 days 01/11/25 Rx #14 tabs sacubitril 24 mg-valsartan 26 mg 1 tab PO BID 30 days #60 tabs 01/11/25 Rx tablet (Entresto) sodium chloride 1,000 mg soluble 1,000 mg PO DAILY 30 days #30 tabs 01/11/25 Rx tablet spironolactone 25 mg tablet 25 mg PO DAILY 30 days #30 tabs 01/11/25 Rx New Prescriptions to Start Prescriptions: [id number] [Trelegy Ellipta] Hernesto,Simeon furosemide Hernesto,Simeon ipratropium-albuterol Hernesto,Simeon metoprolol succinate Hernesto,Simeon nicotine Pidyumiko,Simeon prednisone Pidyumiko,Simeon sacubitril-valsartan [Entresto] Hernesto,Simeon sodium chloride Hernesto,Simeon spironolactone Hernesto,Simeon Allergies Allergy/AdvReac Type Severity Reaction Status Date / Time No Known Allergies Allergy Verified 12/25/24 15:02 Discharge Plan Disposition Patient Disposition: Home Health Service Condition: Fair Discharge Order Discharge Orders: Discharge Order (Routine); Ordered 01/11/25 Ordered By: Simeon Eric Follow up Plan Follow up with: Eddie Cortes PA [Physician Produce Field Merchandiser] - 01/14/25 Melvin Aponte MD [Physician] - 01/14/25 Prescriptions/Medication Reconciliation: New furosemide 40 mg Tablet 40 mg PO DAILY 30 Days Qty: 30 0RF prednisone 20 mg Tablet 40 mg PO DAILY 7 Days Qty: 14 0RF nicotine 21 mg/24 hr Patch 24 Hour 21 mg transdermal DAILY 30 Days Qty: 28 0RF metoprolol succinate 25 mg Tablet Extended Release 24 Hr 25 mg PO DAILY 30 Days Qty: 30 0RF sacubitril-valsartan [Entresto] 24-26 mg Tablet 1 tab PO BID 30 Days Qty: 60 0RF Trelegy Ellipta 100-62.5-25 mcg Blister With Device 1 inh inhalation DAILY 30 Days Qty: 60 0RF ipratropium-albuterol 0.5 mg-3 mg(2.5 mg base)/3 mL Solution For Nebulization 3 ml inhalation Q6HP PRN (Reason: Shortness Of Breath) 30 Days Qty: 180 0RF spironolactone 25 mg Tablet 25 mg PO DAILY 30 Days Qty: 30 0RF sodium chloride 1,000 mg Tablet,Soluble 1,000 mg PO DAILY 30 Days Qty: 30 0RF Continued linaclotide 145 MCG capsule 145 mcg PO DAILY omeprazole 20 mg capsule,delayed release(DR/EC) 20 mg PO DAILY Patient Comments: TAKE 1 CAPSULE BY MOUTH ONCE DAILY AROUND THE CLOCK rosuvastatin 10 mg tablet 10 mg PO HS Patient Comments: TAKE 1 TABLET BY MOUTH ONCE DAILY Trelegy Ellipta 200-62.5-25 mcg blister with device 1 inh INHALATION DAILY Patient Comments: INHALE 1 PUFF ONCE DAILY potassium chloride 20 mEq tablet,ER particles/crystals 20 meq PO DAILY Patient Comments: TAKE 1 TABLET BY MOUTH ONCE DAILY fluticasone propionate 50 mcg/actuation spray,suspension 1 spray INTRANASAL DAILY Patient Comments: USE 1 SPRAY(S) IN EACH NOSTRIL ONCE DAILY diclofenac sodium 75 mg tablet,delayed release (DR/EC) 75 mg PO BIDP PRN (Reason: ARTHRITIS PAIN) Patient Comments: TAKE 1 TABLET BY MOUTH TWICE DAILY WITH FOOD OR MILK nystatin 100,000 unit/mL Suspension 500,000 unit PO QID 10 Days Qty: 200 0RF cetirizine 10 mg tablet 10 mg PO DAILY Patient Comments: TAKE 1 TABLET BY MOUTH ONCE DAILY ergocalciferol (vitamin D2) 1,250 mcg (50,000 unit) capsule 1,250 mcg PO WEEKLY Patient Comments: TAKE 1 CAPSULE BY MOUTH ONCE A WEEK Discontinued carvedilol 6.25 mg tablet 6.25 mg PO BID Patient Comments: TAKE 1 TABLET BY MOUTH TWICE DAILY WITH FOOD lisinopril 10 mg tablet 10 mg PO DAILY Patient Comments: TAKE 1 TABLET BY MOUTH ONCE DAILY Problem Reconciliation Problems Reviewed?: Yes Patient Discharge Instructions Patient Instructions: Methicillin-Resistant Staph Infection, DI for Pneumonia -- Adult, DI for Hyponatremia, DI for Failure to Thrive, DI for Urinary Retention in Women, DI for Multiple Drug-resistant Organism (MDRO) Infection, DI for Respiratory Failure, Catheter-Associated Urinary Tract Infection, NCM High-Calorie High-Protein Diet, WM High Calorie High Protein Diet Recipes, Tips for Adding Protein - Diet, Underweight Diet Print Language: Vietnamese Providers Primary Care Provider: Debora Mckeon Admruby Provider: Simeon Eric Attending Provider: Simeon Eric
--- NOTE | 2025-01-11 13:40 | PC.NURSE ---
pt room air sat is 73%
--- NOTE | 2025-01-11 15:17 | PC.NURSE ---
Patient discharged at this time. pt will be staying with her son. address of pt home is [address] [place] [address], [id number]
--- NOTE | 2025-01-11 15:18 | PC.NURSE ---
1246 received notification from md that pt was being discharged. spoke with patient family/SO. family states that they do not have arrangements set up for patient at this time. they were wanting to see if pt was eligible for rehab. per note from [facility] pt does not require rehab and will be able to dc home with home health. notified family of info. family to have discussion about situation with patient dc and will return call. notified family that pt is able to stand and walk without assistance from staff. pt ambulated around the nurses station 2-3 times this shift. pt 02 was weaned to 3lpm. 1250 clarified with patient if she had oxygen at home. pt states that she has a concentrator at home but no portable o2. new order to be entered by md for oxygen. 1254 called and spoke with md. notified him that pt does not have portable o2, pt family not comfortable with dc at this time as they do not have arrangements made for where she is staying and this rn is unsure if HH is set up and in place at this time. 1255 spoke with care management, clarified if HH had been consulted yet. HH will be consulted tomorrow. address to be provided by family as to where pt is staying. 1330 pt family returned call, states they will be able to take pt home today. notified md as well. 1420 [employer] delivered portable o2 for pt. 1515 pt brother arrived to take pt home. teaching provided to patient and brother. advised against smoking as o2 is flammable and pt cannot wear o2 and smoke and does not tolerate being on room air as hwer o2 sats drop into the 70's within a few minutes.
--- NOTE | 2025-01-13 11:15 | SW/DCPLANNER ---
Phoned patient x2. Patient did not answer. Left message with call back number. Martha Hussein
--- NOTE | 2025-01-15 13:00 | SW/DCPLANNER ---
Addendum entered by Linda Armenta 01/23/25 12:16: Magdalena valle/ [facility] called and requested discharge summary to [phone]. I have faxed discharge summary at this time. Addendum entered by Yazmin Giordano 01/16/25 09:14: Patient has been accepted by [facility]. They said it will be first of next week before they can start. Martha Hussein Addendum entered by Yazmin Giordano 01/15/25 13:45: [facility] does not offer pt and ot services in the [facility]. Faxed patients info to [facility]. Will update once i hear back from [facility]. Martha Hussein Original Note: Faxed patients info to [facility] for home health services. Will update once i know something back if patient has been accepted by [facility]. Martha Hussein
== END 2025-01-11 15:30 | disposition home health service (06) | DRG 166 ==
LOC: ER 17:09 → ICU 12-26 06:05 → 2ND 12-26 14:15 → ICU 01-01 14:05
PROVIDERS: Emergency Medicine; Internal Medicine Adolescent Medicine; Internal Medicine Pulmonary Disease; Nurse Practitioner Acute Care; Nurse Practitioner Family; Physician Assistant; Admitting Provider Student in an Organized Health Care Education/Training Program; Emergency Provider Emergency Medicine; PCP Nurse Practitioner Family; Visit Provider Student in an Organized Health Care Education/Training Program
PROC: 5A1945Z Respiratory Ventilation, 24-96 Consecutive Hours (ICD-10-PCS; principal; 2025-01-01 12:00)
PROC: 0BJ08ZZ Inspection of Tracheobronchial Tree, Via Natural or Artificial Opening Endoscopic (ICD-10-PCS; CPT 31622; principal; 2025-01-02 09:30)
DX: J15.212 Pneumonia due to Methicillin resistant Staphylococcus aureus (principal); E43 Unspecified severe protein-calorie malnutrition; J96.01 Acute respiratory failure with hypoxia; Z68.1 Body mass index [BMI] 19.9 or less, adult; J84.116 Cryptogenic organizing pneumonia; I50.20 Unspecified systolic (congestive) heart failure; I31.39 Other pericardial effusion (noninflammatory); J44.1 Chronic obstructive pulmonary disease with (acute) exacerbation; E22.2 Syndrome of inappropriate secretion of antidiuretic hormone; R64 Cachexia; J15.1 Pneumonia due to Pseudomonas; R33.8 Other retention of urine; F17.210 Nicotine dependence, cigarettes, uncomplicated; R59.0 Localized enlarged lymph nodes; I50.810 Right heart failure, unspecified; K21.9 Gastro-esophageal reflux disease without esophagitis; D64.9 Anemia, unspecified; Z79.51 Long term (current) use of inhaled steroids; Z79.899 Other long term (current) drug therapy; I11.0 Hypertensive heart disease with heart failure; R41.81 Age-related cognitive decline
CPT/HCPCS: 36415; 36430; 51702; 71045; 71250; 71275; 74177; 76000; 80048; 80053; 80061; 80202; 81001; 82024; 82306; 82533; 82607; 82728; 82746; 82803; 82962; 83036; 83540; 83550; 83605; 83735; 83880; 84100; 84145; 84436; 84439; 84443; 84484; 85007; 85014; 85018; 85025; 85610; 85651; 86140; 86850; 87040; 87070; 87077; 87081; 87102; 87106; 87116; 87186; 87205; 87206; 87633; 87636; 87641; 88112; 88305; 88312; 89051; 93005; 93306; 93308; 94002; 94003; 94640; 94660; 94667; 94668; 94760; 94761; 97110; 97116; 97163; 97166; 97530; 97535; 99285; J0456; J0692; J0696; J1630; J1650; J1939; J1940; J2020; J2060; J2250; J2704; J3010; J3370; J3475; J3480; J7050; J7060; J7120; J7620; P9016; Q9967

== ENCOUNTER 2025-03-04 14:43 | Outpatient (CLI) | payer MEDICARE, MEDICAID, SELFPAY ==
--- OUTSIDE RECORDS SUMMARY | 2025-03-04 14:45 | XMS_ITS | Continuity of Care Document ---
Author Organization [place] - [facility] Address [address] [place] [address] Care Team Providers Care Filenet Developer Name Role Phone LEONEL MCKEON Primary Care Provider LEONEL MCKEON Referring Provider [phone] Assessment No assessment recorded. Plan of Treatment Reminders Order Date Submit Date Provider Last Modified By Organization Details Last Modified Time Details Appointments Establish ed Visit 30 min 2024 10:30A M Leonel Mckeon NP Not available Not available Not available OV NEW 30 2024 02:00P M Wilver Martin M.D Not available Not available Not available Lab None recorded. Referral cardiolog ist referral - please set up follow-up with Dr. Breanna myers when he is in [facility] 2024 025 [email or web address] Angel Chow MD, [address], [place], [address], 03/02/2025 09:03:32 Procedures None recorded. Surgeries None recorded. Imaging None recorded. Medication Orders None recorded. Patient TargetsNo targets recorded. Patient Instructions Encounter Date Encounter Id Patient Instructions Last Modified By Organization Details Last Modified Time 01/30/2025 [id number] plan 1. Continue on antibiotics till complete. Urine looks clear and yellow so a repeat urinalysis was not completed today but will be on return visit. 2. Keep appointment with urology next week. 3. Recommended that she stay with Dr. Angel Chow since she has followed with him in the past and they are agreeable but they would like to see him in [employer] only since she is living with her daughter right now. 4. Referral to pulmonology in [place] as they requested. 5. Skin tear was cleaned and redressed. Skin care measures discussed. 6. Continue to follow with home health, physical and occupational therapies as well. 7. I will see her back in 2 weeks for follow-up, sooner if needed. 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 Angel Chow when he is in [place] Referring Physician: Leonel Mckeon, Family Medicine, Encounter Date: 01/30/2025 Results Created Date Observation Date Name Description Value Unit Range Abnormal Flag Note LastModifiedBy Organization Detail LastModifiedTime 01/06/20 25 01/06/2025 [place], doppl er echoc ardio gram No observ ation record ed. Not Available 2024 13:22:36 Result Notes None recorded. Problems Name Problem SNOMED Code Status Onset Date Resolution Date Notes Provider Name and Address Organization Details Recorded Time Congestion of nasal sinus 05198625 Active 2023 Matty jenkins [place] [facility] [place] [facility] [place] 4 14:05:24 Sore throat 498366456 Active 2023 Matty jenkins [place] [facility] [place] 4 14:05:53 Gastroesoph ageal reflux disease 301142445 Active 2023 Leonel Mckeon NP [address], [place], [address], [place] [facility] [place] 4 14:46:41 Seasonal allergic rhinitis 505946014 Active 2023 Leonel Mckeon NP [address], [place], [address], [place] [facility] [place] 4 10:54:01 Right lower zone pneumonia 922321160 Active 2023 ANY SAUCEDO [facility] [address], [place], [address], [place] [facility] [place] 4 16:25:51 Acute bronchitis 27936931 Active 2024 Leonel Mckeon, MYLA [facility] [address], [place], [address], [place] [facility] [place] 5 16:25:40 Anemia 971344995 Active 2024 Leonel Mckeon, MYLA [address], [place], [address], [place] [facility] [place] 5 13:56:28 Hypoxemia 360599030 Active 2024 ANY SAUCEDO [facility] [address] [facility],[address], [place], [address], [place] [facility] [place] 5 14:43:58 Amnesia 58913799 Active 2024 ANY SAUCEDO [facility] [address], [place], [address], [place] [facility] [place] 5 14:44:41 Open wound of left upper limb Active 2024 ANY SAUCEDO [facility] [address] [facility],[address], [place], [address], [place] [facility] [place] 5 14:57:33 Dyspnea 450098761 Active 2024 ANY SAUCEDO [facility] [address], [place], [address], [place] [facility] [place] 5 14:57:55 Chronic urinary tract infection 347050755 Active 2024 ANY SAUCEDO [facility] [address] [facility],[address], [place], [address], [place] [facility] [place] 5 14:58:17 Pneumonia 806377903 Active 2024 ANY SAUCEDO [address] [facility],[address], [place], [address], [place] [facility] [place] 5 15:11:11 Retention of urine 780792377 Active 2024 Leonel Mckeon NP [facility] [address] [facility],[address], [place], [address], [place] [facility] [place] 5 15:03:27 Adult failure to thrive syndrome 272540742 Active 2024 Leonel Mckeon NP [facility] [address] [facility],[address], [place], [address], [place] [facility] [place] 5 15:03:44 Rheumatoid arthritis 76991890 Active 2021 Leonel Mckeon NP [facility] [address] [facility],[address], [place], [address], [place] [facility] [place] 2 14:37:09 Osteoarthri tis 210397104 Active 2021 Leonel Mckeon NP [facility] [address] [facility],[address], [place], [address], [place] [facility] [place] 2 14:37:01 Spinal stenosis 14201142 Active 2021 Leonel Mckeon NP [facility] [address] [facility],[address], [place], [address], [place] [facility] [place] 2 14:37:11 Irritable bowel syndrome 76335593 Active 2021 Leonel Mckeon NP [facility] [address] [facility],[address], [place], [address], [place] [facility] [place] 2 14:37:03 Essential hypertensio n 02343120 Active 2021 Leonel Mckeon, MYLA [facility] [address], [place], [address], [place] [facility] [place] 2 14:36:45 Degenerativ e disorder 549717037 Active 2021 Leonel Mckeon, MYLA [address] [place] [address],[address], [place], [address], [place] [facility] [place] 2 14:36:43 Peripheral vascular disease 441974907 Active 2021 Leonel Mckeon, [employer]ISSI[employer]S OFFICER [facility] [address], [place], [address], [place] [facility] [place] 2 14:37:06 Chronic myelopathy [id number] 08 Active 2021 Leonel Mckeon NP [facility] [address] [facility],[address], [place], [address], [place] [facility] [place] 2 14:36:33 Polyneuropa thy 73863787 Active 2021 Leonel Mckeon NP [facility] [address] [facility],[address], [place], [address], [place] [facility] [place] 2 14:37:16 Vitamin D deficiency 45825345 Active 2021 Leonel Mckeon NP [facility] [address] [facility],[address], [place], [address], [place] [facility] [place] 2 14:37:14 Fatigue 51491448 Active 2021 Hazel jenkins, [place] [facility] [place] 2 13:39:17 Carpal tunnel syndrome 36071754 Active 2021 Leonel Mckeon NP [facility] [address] [facility],[address], [place], [address], [place] [facility] [place] 2 14:36:31 Chronic obstructive pulmonary disease 22704462 Active 2021 Leonel Mckeon NP [facility] [address] [facility],[address] [place] [address], [address], [place] [facility] [place] 2 14:36:36 Congestive heart failure 57472383 Active 2021 Leonel Mckeon NP [address] [place] [address],[address] [place] [address], [address], [place] [facility] [place] 2 14:36:40 Hyperlipide gianna 51142303 Active 2021 Leonel Mckeon NP [address] [place] [address],[address] [place] [address], [address], [place] [facility] [place] 2 14:36:58 Peripheral edema 515165210 Active 2021 Leonel Mckeon NP [address] [place] [address],[address], [place], [address], [place] [facility] [place] 2 14:36:18 Electrolyte imbalance 757192678 Active 2021 Leonel Mckeon NP [facility] [address] [facility],[address], [place], [address], [place] [facility] [place] 2 16:08:55 Benign hypertensio n 92498489 Active 2021 Hazel Cox null, [place] [facility] [place] 2 10:27:16 Cough 92514453 Active 2021 Matty null, [place] [facility] [place] 2 13:20:46 Acute exacerbatio n of chronic obstructive pulmonary disease 110694083 Active 2021 ANY SAUCEDO [facility] [address] [facility],[address], [place], [address], [place] [facility] [place] 5 15:11:28 Candidiasis of mouth 94709644 Active 2021 ANY SAUCEDO [address] [place] [address],[facility] te [address] [place] [address], [address], [place] [facility] [place] 5 16:55:32 Acute urinary tract infection 684168851 Active 2022 Leonel Mckeon NP [address] [place] [address],[facility] [address] [place] [address], [address], [place] [facility] [place] 3 09:41:45 Standard chest X-ray abnormal 095498339 Active 2022 Leonel Mckeon NP [address] [place] [address],[facility] [address] [place] [address], [address], [place] [facility] [place] 3 09:43:34 Dysfunction of bilateral eustachian tubes 5664663263420 100 Active 2022 DIONNE MENDEZ MD [address] [place] [address], [address], [place], [address], [place] [facility] [place] 3 15:41:50 Thyroid nodule 850178718 Active 2022 Leonel Mckeon NP [address] [place] [address],[facility] [address] [place] [address], [address], [place] [facility] [place] 3 10:07:23 Mixed hyperlipide gianna 868745835 Active 2022 Leonel Mckeon NP [address] [place] [address],[facility] [address] [place] [address], [address], [place] [facility] [place] 3 11:45:13 Abscess of skin of right wrist 2983062054652 9108 Active 2022 Leonel Mckeon NP [address] [place] [address],[address] [place] [address], [address], [place] [facility] [place] 3 08:44:25 Pain in throat 721053394 Active 2022 Rosey Saldaña null, [place] [facility] [place] 3 16:49:43 Streptococc al sore throat 28478528 Active 2022 Leonel Mckeon NP [facility] [facility],[address], [place], [address], [place] [facility] & [place] 3 16:51:20 Pain in throat 076398004 Active 2022 Leonel Mckeon NP [address] [place] [address],[address], [place], [address], [place] [facility] [place] [facility] & [place] 3 16:51:20 Multiple joint pain 00553714 Active 2022 Leonel Mckeon NP [address] [place] [address],[address], [place], [address], [place] [facility] [place] 3 13:20:22 Acute pharyngitis 921874330 Active 2022 Leonel Mckeon NP [address] [place] [address],[address], [place], [address], [place] [facility] [place] 3 14:07:29 Oral erythematou s candidiasis 190029863 Active 2022 Leonel Mckeon NP [address] [place] [address],[address], [place], [address], [place] [facility] [place] 3 14:19:30 Candidiasis of skin 75405835 Active 2022 ANY SAUCEDO [facility] [address] [facility],[address], [place], [address], [place] [facility] & [place] 5 16:57:02 Gastro-esop hageal reflux disease with esophagitis 152147646 Active 2022 Leonel Mckeon NP [facility] [facility],[address], [place], [address], [place] [facility] [place] [facility] & [place] 3 14:24:02 Candidiasis of vagina 67677549 Active 2022 Leonel Mckeon, MYLA [address] [place] [address],[address] [facility], [place], [address], [place] [facility] [place] 3 09:25:19 Influenza caused by Influenza B virus 72902303 Active 2023 Leonel Mckeon, MYLA [address] [place] [address],[address] [facility], [place], [address], [place] [facility] [place] 4 15:44:42 Blood glucose outside reference range 686550293 Active 2023 Leonel Mckeon, MYLA [address] [place] [address],[address] [facility], [place], [address], [place] [facility] [place] 4 10:55:01 Conductive hearing loss of right ear 9699377997 Active 2023 BEATRIZ EVANS, JACINDA [address] [place] [address],[address] [facility], [place], [address], [place] [facility] [place] 4 10:11:05 Gastroesoph ageal reflux disease without esophagitis 755548036 Active 2023 Terry Byrd MD [address] [place] [address],[address] [place] [address], [address], [place] [facility] [place] 4 06:36:24 Dysphagia 89025705 Active 2023 Terry Byrd MD [address] [place] [address],[address], [place], [address], [place] [facility] [place] 4 09:44:22 Regurgitati on of food 481687738 Active 2023 Terry Byrd MD [address] [place] [address],[address], [place], [address], [place] [facility] [place] 4 09:45:04 Folic acid deficiency 108220034 Active 2023 Leonel Mckeon NP [address] [place] [address],[address], [address], [place] [facility] [place] 4 09:31:22 Degeneratio n of lumbar interverteb ral disc 75720232 Active 2023 Leonel Mckeon NP [address] [place] [address],[address], [address], [place] [facility] [place] 4 09:24:39 Hyponatremi a 30166327 Active 2023 Leonel Mckeon NP [address] [place] [address],[address], [address], [place] [facility] [place] 4 09:21:26 Constipatio n 98720966 Active 2023 Leonel Mckeon NP [address] [place] [address],[address], [address], [place] [facility] [place] 4 10:16:23 Near syncope 056883511 Active 2023 Leonel Mckeon NP [address] [place] [address],[facility] [address] [place] [address], [address], [place] [facility] [place] 4 09:53:29 Recurrent falls 132942595 Active 2023 Leonel Mckeon NP [address] [place] [address],[address], [address], [place] [facility] [place] 4 09:55:34 Tobacco dependence syndrome 24498517 Active 2023 Terry Byrd MD [address] [place] [address],[address], [address], [place] [facility] [place] [facility] [place] 4 09:19:07 Problem Notes None recorded. Procedures Surgical History Date Name Laterality Status Provider Name and Address Organization Details Recorded Time 02/29/20 24 Medicare Annual Wellness Visit Health Risk Assessment completed Rosey Sandy [facility] & [place] 02/29/2024 09:11:32 08/15/20 23 Removal of foreign body from ear canal completed DIONNE MENDEZ MD [address] [place] [address], [address], [place], [address], [facility] & [place] 08/15/2023 09:51:17 05/31/20 23 EMG/ Nerve Conduction Study completed Milo Joseph M.D [address] [place] [address], [address], [place], [address], [facility] & [place] 06/04/2023 11:28:10 01/20/20 23 Tympanostomy with placement of tube completed DIONNE MENDEZ MD [address] [place] [address], [address], [place], [address], [facility] & [place] 01/19/2023 16:05:29 08/08/20 22 Excision and closure completed Sudheer Oro MD [address] [place] [address],[address], [place], [address], [facility] & [place] 08/08/2022 10:07:19 11/12/19 19 Joint Replacement completed Violeta Shetty [facility] & [place] 08/03/2022 09:24:22 lumbar spinal fusion completed Not Available [facility] 07/31/2022 15:53:39 prosthetic total arthroplasty of right shoulder completed Not Available [facility] 07/31/2022 15:53:39 incision and drainage of abscess completed Hazel Kenny [facility] & [place] 07/31/2022 16:17:54 Imaging Results None recorded. Procedure Notes None recorded. Medical Equipment None Reported. Allergies No known drug allergies Medications Name Sig Start Date Stop Date Status Note LastModified by Organization Details LastModified Time Prescriptio n - Clarificati on 08/28 completed Not Available Not Available Not Available Prescriptio n - New 11/01 completed Not Available Not Available Not Available cyclobenzap rine 10 mg tablet TAKE 1 TABLET BY MOUTH THREE TIMES DAILY NEEDED FOR MUSCLE SPASM 08/29 completed Not Available Not Available Not Available furosemide 40 mg tablet TAKE 1 TABLET BY MOUTH ONCE DAILY FOR 30 DAYS active Not Available Not Available No t Available fluconazole 100 mg tablet TAKE 1 TABLET BY MOUTH EVERY OTHER DAY FOR 10 DAYS active Not Available Not Available No t Available promethazin e-DM 6.25 mg-15 mg/5 mL oral syrup Take 5 mL every 4 hours by oral route. 12/02 completed Not Available Not Available Not Available nystatin 100,000 unit/mL oral suspension 5 ML 4 TIMES DAILY FOR 10 DAYS active Not Available Not Available No t Available potassium chloride ER 10 mEq capsule,ext ended release TAKE 2 CAPSULES BY MOUTH ONCE DAILY 07/26 completed Not Available Not Available Not Available carvedilol 6.25 mg tablet TAKE 1 TABLET BY MOUTH TWICE DAILY WITH FOOD 01/27 completed Not Available Not Available Not Available prednisone 10 mg tablet TAKE 4 TABLETS BY MOUTH ONCE DAILY FOR 3 DAYS THEN 3 ONCE DAILY FOR 3 DAYS THEN 2 ONCE DAILY FOR 3 DAYS THEN 1 ONCE DAILY FOR 3 DAYS THEN 1/2 (ONE-HALF ) ONCE DAILY FOR 4 DAYS 07/26 completed Not Available Not Available Not Available doxycycline hyclate 100 mg capsule TAKE 1 CAPSULE BY MOUTH TWICE DAILY 08/24 completed Not Available Not Available Not Available cefuroxime axetil 250 mg tablet TAKE 1 TABLET BY MOUTH TWICE DAILY 12/26 completed Not Available Not Available Not Available ipratropium 0.5 mg-albutero l 3 mg (2.5 mg base)/3 mL nebulizatio n soln USE 1 AMPULE IN NEBULIZER EVERY 6 HOURS NEEDED FOR SHORTNESS OF BREATH active Not Available Not Available No t Available clindamycin HCl 300 mg capsule Take 1 capsule every 6 hours by oral route for 10 days. 09/20 completed Not Available Not Available Not Available albuterol sulfate 2.5 mg/3 mL (0.083 %) solution for nebulizatio n Inhale 3 mL every 4-6 hours by nebulizat ion route for 30 days. 10/01 completed Not Available Not Available Not Available cetirizine 10 mg tablet TAKE 1 TABLET BY MOUTH ONCE DAILY 12/03 completed Not Available Not Available Not Available azithromyci n 250 mg tablet TAKE 2 TABLETS BY MOUTH ON DAY 1, AND THEN TAKE 1 TABLET BY MOUTH ONCE A DAY ON DAY 2 THROUGH DAY 5 active Not Available Not Available No t Available fluconazole 150 mg tablet TAKE ONE TABLET BY MOUTH A ONE-TIME DOSE 10/01 completed Not Available Not Available Not Available hydrocodone 5 mg-acetamin ophen 325 mg tablet TAKE 1 TABLET BY MOUTH EVERY 6 HOURS NEEDED FOR PAIN 06/03 completed Not Available Not Available Not Available prednisone 20 mg tablet TAKE 3 TABLETS FOR 2 DAYS THEN 2 TABLETS FOR 2 DAYS THEN 1 TABLET FOR 2 DAYS active Not Available Not Available No t Available gabapentin 400 mg capsule TAKE 2 CAPSULES BY MOUTH TWICE DAILY 08/24 completed Not Available Not Available Not Available prednisone 5 mg tablet TAKE 3 TABLETS BY MOUTH ONE TIME EACH DAY FOR 7 DAYS, THEN 2 TABS EVERY DAY FOR 7 DAYS, THEN 1 TAB EVERY DAY FOR 7 DAYS THEN STOP. 01/27 completed Not Available Not Available Not Available ciprofloxac in 500 mg tablet TAKE 1 TABLET BY MOUTH EVERY 12 HOURS FOR 10 DAYS 10/17 completed Not Available Not Available Not Available sulfamethox azole 800 mg-trimetho prim 160 mg tablet TAKE 1 TABLET BY MOUTH EVERY 12 HOURS FOR 14 DAYS 08/24 completed Not Available Not Available Not Available doxycycline monohydrate 100 mg tablet Take 1 tablet twice a day by oral route. 12/02 completed Not Available Not Available Not Available triamcinolo ne acetonide 0.1 % topical cream 03/21 completed Not Available Not Available Not Available spironolact one 25 mg tablet TAKE 1 TABLET BY MOUTH ONCE DAILY active Not Available Not Available No t Available carvedilol 3.125 mg tablet Take 1 tablet by mouth twice daily 01/27 completed Not Available Not Available Not Available ceftriaxone 1 gram solution for injection Take 1 g by injection route for 1 day. 01/30 completed Not Available Not Available Not Available ofloxacin 0.3 % ear drops INSTILL 5 DROPS INTO EACH EAR TWICE DAILY FOR 5 DAYS 02/28 completed Not Available Not Available Not Available amoxicillin 875 mg tablet Take 1 tablet every 12 hours by oral route. 09/10 completed Not Available Not Available Not Available potassium chloride ER 20 mEq tablet,exte nded release(par t/cryst) TAKE 1 TABLET BY MOUTH ONCE DAILY active Not Available Not Available No t Available methotrexat e sodium 2.5 mg tablet TAKE 6 TABLETS BY MOUTH ONCE A WEEK AT THE SAME TIME WITH FOOD 03/21 completed Not Available Not Available Not Available linezolid 600 mg tablet TAKE 1 TABLET BY MOUTH TWICE DAILY 11/14 completed Not Available Not Available Not Available cephalexin 500 mg capsule Take 1 capsule every 8 hours by oral route for 10 days. 10/15 completed Not Available Not Available Not Available nystatin 100,000 unit/gram topical cream APPLY CREAM TOPICALLY TO AFFECTED AREA TWICE DAILY active Not Available Not Available No t Available lisinopril 10 mg tablet TAKE 1 TABLET BY MOUTH ONCE DAILY 01/27 completed Not Available Not Available Not Available losartan 25 mg tablet 08/24 completed Not Available Not Available Not Available nystatin-tr iamcinolone 100,000 unit/g-0.1 % topical cream 02/28 completed Not Available Not Available Not Available omeprazole 20 mg capsule,del ayed release TAKE 1 CAPSULE BY MOUTH ONCE DAILY AROUND THE CLOCK active Not Available Not Available No t Available gentamicin 0.1 % topical cream APPLY 1 GRAM TOPICALLY ONCE DAILY (MIX WITH COLLAGEN POWDER) 08/24 completed Not Available Not Available Not Available Tylenol 325 mg tablet TAKE 2 TABLETS BY MOUTH EVERY 6 HOURS NEEDED 02/28 completed Not Available Not Available Not Available diclofenac sodium 75 mg tablet,sade yed release TAKE 1 TABLET BY MOUTH TWICE DAILY WITH FOOD OR MILK 2023 active Not Available Not Available Not Avai lable folic acid 1 mg tablet TAKE 1 TABLET BY MOUTH ONCE DAILY active Not Available Not Available No t Available lisinopril 5 mg tablet TAKE 1 TABLET BY MOUTH ONCE DAILY 07/26 completed Not Available Not Available Not Available furosemide 20 mg tablet TAKE 1 TABLET BY MOUTH ONCE DAILY NEEDED FOR EDEMA 08/29 completed Not Available Not Available Not Available metoprolol succinate ER 25 mg tablet,exte nded release 24 hr TAKE 1 TABLET BY MOUTH ONCE DAILY active Not Available Not Available No t Available ergocalcife rol (vitamin D2) 1,250 mcg (50,000 unit) capsule TAKE 1 CAPSULE BY MOUTH ONCE A WEEK active Not Available Not Available No t Available nystatin 100,000 unit/gram topical powder APPLY POWDER TOPICALLY TO AFFECTED AREA TWICE DAILY active Not Available Not Available No t Available dexamethaso ne sodium phosphate 4 mg/mL injection solution Inject 2 mL by intramusc ular route for 1 day. 01/30 completed Not Available Not Available Not Available vancomycin 10 gram intravenous solution 09/01 completed Not Available Not Available Not Available prednisone 5 mg tablets in a dose pack Take 1 dose pk by oral route. 10/01 completed Not Available Not Available Not Available levofloxaci n 500 mg tablet 02/28 completed Not Available Not Available Not Available oxycodone-a cetaminophe n 7.5 mg-325 mg tablet TAKE 1 TABLET BY MOUTH EVERY 4 HOURS NEEDED FOR PAIN FOR UP TO 10 DAYS . DO NOT EXCEED DAILY AMOUNT OF 6 TABLETS 08/29 completed Not Available Not Available Not Available levofloxaci n 750 mg tablet TAKE 1 TABLET BY MOUTH ONCE DAILY FOR 2 DAYS 07/26 completed Not Available Not Available Not Available methylpredn isolone 4 mg tablets in a dose pack 12/02 completed Not Available Not Available Not Available albuterol sulfate HFA 90 mcg/actuati on aerosol inhaler INHALE 2 PUFFS BY MOUTH EVERY 4 HOURS NEEDED 08/29 completed Not Available Not Available Not Available ipratropium bromide 42 mcg (0.06 %) nasal spray USE 2 SPRAY(S) IN EACH NOSTRIL THREE TIMES DAILY active Not Available Not Available No t Available cefdinir 300 mg capsule TAKE 1 CAPSULE BY MOUTH EVERY 12 HOURS active Not Available Not Available No t Available fluticasone propionate 50 mcg/actuati on nasal spray,suspe nsion USE 1 SPRAY(S) IN EACH NOSTRIL ONCE DAILY active Not Available Not Available No t Available doxycycline hyclate 100 mg tablet TAKE 1 TABLET BY MOUTH EVERY 12 HOURS 12/03 completed Not Available Not Available Not Available metoclopram fredy 10 mg tablet TAKE 1 TABLET BY MOUTH TWICE DAILY 08/29 completed Not Available Not Available Not Available amoxicillin 500 mg-potassiu m clavulanate 125 mg tablet TAKE ONE TABLET BY MOUTH THREE TIMES DAILY FOR 5 DAYS -- FINISH ALL MEDICINE -- 01/27 completed Not Available Not Available Not Available azithromyci n 500 mg tablet TAKE 1 TABLET BY MOUTH ONCE DAILY 07/26 completed Not Available Not Available Not Available cyclobenzap rine 5 mg tablet TAKE 1 TABLET BY MOUTH THREE TIMES DAILY NEEDED FOR MUSCLE SPASM 07/17 completed Not Available Not Available Not Available ciprofloxac in 0.3 %-dexametha sone 0.1 % ear drops,suspe nsion INSTILL 4 DROPS INTO LEFT EAR TWICE DAILY FOR 7 DAYS 01/27 completed Not Available Not Available Not Available rosuvastati n 10 mg tablet Take 1 tablet every day by oral route for 90 days. 2024 active Not Available Not Available Not Avai lable MAG-AL 200 mg-200 mg/5 mL oral suspension Take as directed by Dr[facility] ,11/13 in the evening on 01/03 half on 01/04 morning 01/27 completed Not Available Not Available Not Available Bactrim DS 08/18 completed Not Available Not Available Not Available sodium chloride 1,000 mg soluble tablet TAKE TABLET BY MOUTH ONCE DAILY active Not Available Not Available No t Available Symbicort 80 mcg-4.5 mcg/actuati on HFA aerosol inhaler INHALE 2 PUFFS BY MOUTH TWICE DAILY 06/20 completed Not Available Not Available Not Available peg 3350-electr olytes 236 gram-22.74 gram-6.74 gram-5.86 gram solution TAKE DIRECTED BY DR. HARRISON OFFICE 01/27 completed Not Available Not Available Not Available Stool Softener 100 mg tablet Take 1 tablet every day by oral route. 01/27 completed Not Available Not Available Not Available Mucus Relief ER 600 mg tablet, extended release TAKE 1 TABLET BY MOUTH TWICE DAILY. DO NOT CRUSH, CHEW, OR SPLIT 08/29 completed Not Available Not Available Not Available Linzess 145 mcg capsule Take 1 capsule by mouth once daily 2024 active Not Available Not Available Not Avai lable Entresto 24 mg-26 mg tablet TAKE 1 TABLET BY MOUTH TWICE DAILY active Not Available Not Available No t Available Trelegy Ellipta 100 mcg-62.5 mcg-25 mcg powder for inhalation INHALE 1 PUFF ONCE DAILY active Not Available Not Available No t Available Trelegy Ellipta 200 mcg-62.5 mcg-25 mcg powder for inhalation INHALE 1 PUFF ONCE DAILY 01/27 completed Not Available Not Available Not Available Vitals Date Recorded Body height Body mass index (BMI) Body weight Body temperature Oxygen saturation Oxygen saturation in Arterial blood by Pulse oximetry Respiratory rate Heart rate Systolic blood pressure Diastolic blood pressure Provider Name and Address Organization Details Last Updated DateTime 5 165.1 cm 16.3 kg/m2 65670.4 5 g 96.9 [degF] 92 % 92 % 16 /min 84 /min 108 mm[Hg] 70 mm[Hg] February JUAN [facility] & [place] 5 14:07:04 Social History Question Answer Notes LastModified by Organizat ion Details LastModified Time Tobacco Smoking Status Current Every Day [facility] [place] 07/26/2022 13:42:00 Do You Have An Advance Directive? No Information not available 07/31/2022 What Is Your Level Of Alcohol Consumption? None Information not available 07/31/2022 Are You Blind Or Do You Have Difficulty Seeing? No Information not available 07/31/2022 What Is Your Level Of Caffeine Consumption? Occasional [email or web address] Information not available 12/21/2023 What Type Of Diet Are You Following? REGULAR [email or web address] Information not available 03/21/2024 What Was The Date Of Your Most Recent Tobacco Screening? 07/31/2022 Information not available 07/31/2022 Are You Passively Exposed To Smoke? No Information no t available 07/31/2022 Do You Or Have You Ever Used Smokeless Tobacco? Never Used Smokeless Tobacco Information not available 07/31/2022 How Much Tobacco Do You Smoke? 1 PPD Information not available 07/31/2022 Do You Feel Stressed (tense, Restless, Nervous, Or Anxious, Or Unable To Sleep At Night)? [id number] Information not available 07/31/2022 Do You Use Any Illicit Or Recreational Drugs? No Information not available 07/31/2022 How Many Years Have You Smoked Tobacco? 20 Information not available 07/31/2022 Do You Or Have You Ever Used Any Other Forms Of Tobacco Or Nicotine? No [email or web address] Information not available 03/21/2024 Sex: Unknown Functional Status Question Answer Note LastModified by Organization D etails LastModified Time What is your exercise level? None Information not available 07/31/2022 Mental Status None recorded. Family History Relationship Description Onset Age of this Age Resolved Age Notes LastModified by Organization Details LastModified Time Mother Malignant neoplasm of brain 61 [email or web address] Not available 2024 14:00:08 Father Kidney disease 63 [email or web address] Not available 08/2024 09:33:16 Medical History Condition Response Coronary Artery Disease N Gout N None N Colon Cancer N Kidney Stones N Hyperthyroidism N Emphysema N Glaucoma N Depression N COPD Y Hypothyroidism N Diverticulitis/Diverticulosis N Anesthesia Complications N Anxiety Disorder N Muscle, Joint, or Bone Problems Y Hearing Loss N Arthritis Y Acid Reflux (GERD) N Cancer N Stroke N High Cholesterol N Liver Disease N Fibromyalgia N Headaches N Speech Delay N Kidney Disease N Allergies/Hayfever N Heart Problems N Heart Conditions N Migraines N Thyroid Problems Y Developmental Delay N Osteoporosis/Osteopenia N Anemia N Immune System Disorder N Colon Polyps N Heart Attack ([place]) N Diabetes N Bleeding Disorder N Seizures/Epilepsy N Tuberculosis N Hyperlipidemia Y Eczema Y Asthma Y Sleep Apnea N Sleep Disorder N GERD/Reflux N Hepatitis N Cirrhosis N Heart Disease Y Hypertension Y Gynecological HistoryNo gynecological history recorded. Obstetrics History GPAL:G 0 P 0 0 0 0 Immunizations Vaccine Type Date Status Note Provider Nam e and Address Organization Details Recorded Time COVID-19, mRNA, LNP-S, PF, 100 mcg/0.5mL dose or 50 mcg/0.25mL dose 1 completed Hazel Cox null, [place] [facility] [place] 08/28/2022 10:26:58 COVID-19, mRNA, LNP-S, PF, 100 mcg/0.5mL dose or 50 mcg/0.25mL dose 1 completed Rosey Saldaña null, [place] - LPNT [facility] & [place] 10/15/2023 13:59:14 COVID-19, mRNA, LNP-S, PF, 100 mcg/0.5mL dose or 50 mcg/0.25mL dose 1 completed Rosey Saldaña null, [place] - LPNT [facility] & [place] 10/15/2023 13:59:14 COVID-19, mRNA, LNP-S, PF, 100 mcg/0.5mL dose or 50 mcg/0.25mL dose 1 completed JUAN Ca LUISA [facility] & [place] 08/28/2022 10:26:58 Td (adult), 2 Lf tetanus toxoid, preservative free, adsorbed 8 completed JUAN Ca [facility] & [place] 08/28/2022 10:26:58 Past Encounters Encounter ID Performer Location Encounter Start Date Encounter Closed Date Diagnosis/Indication Diagnosis SNOMED-CT Code Diagnosis ICD10 Code Diagnosis Note [id number] Gabriela Robles MD [facility] [id number] [place] [id number] 01/14/2025 13:51:55 01/14/2025 14:46:51 Otorrhea of left ear 7108668416 935613 H92.12 Ear drainage has resolved. She does not have any evidence of otorrhea at this time. Physical deconditioning 3324812676 9102 R68.89 She needs aggressive physical therapy for recovery. [id number] Viktor Barth MD [address] [address] 01/27/2025 13:59:50 01/27/2025 15:54:53 Hypoxemia 889062030 R09.02 History of fall 31966648 9 Z91.81 skin tear cleansed and redressed Amnesia 23488379 R41.3 Open wound of left upper limb 4736611842 7106 S41.112A Dyspnea 732428944 R06.00 Chronic ur inary tract infection 112500807 N39.0 Pneumonia 147565663 J18. 9 Acute exac erbation of chronic obstructive pulmonary disease 151015943 J44.1 [id number] Leonel Mckeon NP [address] [phone] 01/30/2025 13:57:21 01/30/2025 14:32:13 Acute exacerbation of chronic obstructive pulmonary disease 836323254 J44.1 Retention of urine 13888 4002 R33.9 Open wound of left upper limb 3320494694 7106 S41.112A Adult fail ure to thrive syndrome 051920147 R62.7 Congestive heart failure 75315654 I50.9 Health Concerns Section Related Observation LastModified by Organization Detai ls LastModified Time None Recorded Concern Status LastModified by Organization Details LastModified Time None Recorded Payers Encounter Date Sequence Insurance Name Policy Number Policy Umanzor Covered Member ID Umanzor Member ID Guarantor Name 01/30/2025 1 [employer] [place] (MEDICARE REPLACEMENT/ ADVANTAGE - HMO) Marisa Kruse [id number] Marisa Kruse Notes Date Note Type Note Provider Name and Address Organization Details Recorded Time 01/30/2025 text/html 64-year-old patient presents today with daughter for a follow-up after hospital discharge. Patient was admitted in [facility] for 3 weeks and then came home for a couple of days and then readmitted in [facility] in [place] for another week with pneumonia, COPD exacerbation, UTI, and failure to thrive. Patient is on 2 sets of antibiotics for Omnicef and Zithromax. She has urinary retention and has a catheter in place. She has an upcoming appointment with Dr. Mejia, urology in [place] next . Patient states her cough and congestion is improved. She is following with home health for physical and occupational therapies as well. She does have a skin tear on her left upper extremity that we are following as well as home health redressing 2-3 times weekly. Her and her daughter state it is healing slowly. Lastly, patient was recommended upon discharge [facility] to see Cardiology as well as pulmonology. She has followed with Dr. Angel Chow in the past but she has never seen pulmonology. She is currently living with her daughter who is helping with her care at this time. Leonel Mckeon, MYLA [address], [place], [address], [facility] [place] & [place] 01/30/2025 15:08:04 OBGyn Episode No OBEpisode recorded.
--- NOTE | 2025-03-04 14:46 | MR_ITS ---
FINAL REPORT TECHNIQUE: Multiplanar and multisequence imaging of the cervical spine was obtained. CLINICAL HISTORY: bilateral HAND NUMBNESS COMPARISON: None FINDINGS: There is marked degradation of image quality secondary to motion artifact. There is reversal of the cervical lordosis, with retrolisthesis of C6 on C7. There is fusion of C4 and C5 with loss of height of the C4 vertebral body, which may be secondary to posttraumatic change, prior surgery, or osteomyelitis/discitis. Signal intensity within the substance of the spinal cord is normal, although limited by motion. No acute bone marrow edema. No acute paraspinal abnormality. C2/3: A mild annular bulge is present. There is no focal disc herniation, central stenosis or neural foraminal narrowing. C3/4: A central disc protrusion is superimposed on an annular bulge with degenerative endplate change and facet osteoarthropathy. There is mild central canal stenosis, and at least moderate right neural foraminal narrowing, with mild left neural foraminal narrowing. C4/5: This level has been fused. A posterior osteophyte presses on the anterior aspect of the thecal sac. There is bilateral facet osteoarthropathy, with likely bilateral neural foraminal narrowing. C5/6: An annular bulge is present, with endplate degenerative change and facet osteoarthropathy, slightly asymmetric to the left. There is mild to moderate central canal stenosis as well as bilateral neural foraminal narrowing. C6/7: An annular bulge is present, with degenerative endplate change and facet osteoarthropathy. There is mild to moderate canal stenosis and bilateral neural foraminal narrowing. C7/T1: An annular bulge is present with degenerative endplate change and facet osteoarthropathy. There is bilateral neural foraminal narrowing. IMPRESSION: Exam markedly limited by motion artifact. There is reversal of the cervical lordosis. Multilevel degenerative change is present with multilevel canal stenosis and neural foraminal narrowing. Reviewed, Interpreted and Dictated by Anais Raygoza MD Transcribed by Mari Meek Authenticated and . [facility]
--- OUTSIDE RECORDS SUMMARY | 2025-03-04 14:46 | XMS_ITS | Data Portability ---
Author Organization [place] - [facility] LUISA Castro ADMIN Address [address] [place] [id number] Care Team Providers Care Operations Architect Name Role Phone DEBORA MCKEON Primary Care Provider DEBORA MCKEON Referring Provider Assessment No assessment recorded. Plan of Treatment Reminders Order Date Submit Date Provider Last Modified By Organization Details Last Modified Time Details Appointments Establish ed Visit 30 min 2024 10:30A M Debora Mckeon NP Not available Not available Not available OV NEW 30 2024 02:00P M Wilver Martin M.D Not available Not available Not available Lab urinalysi s, dipstick 2024 025 [email or web address] 0 [facility], [address] [place] [address], [address], 01/27/2025 15:12:03 vitamin D, 25-hydrox y, total, serum [address] ([facility]), [address] [place] [address] [place], [address], 12/16/2024 07:01:33 anemia panel [address] ([facility]), [address] [place] [address] [place], [address], 12/16/2024 07:01:33 CMP, serum or plasma 2024 025 [facility] ([facility]), [address] [place] [address] Dr, [place], [address], 12/09/2024 18:40:56 lipid panel, serum [address] ([facility]), [address] [place] [address] , [place], [address], 12/16/2024 07:01:33 TSH, serum or plasma [address] ([facility]), [address] [facility] , [place], [address], 12/16/2024 07:01:33 Referral cardiolog ist referral - please set up follow-up with Dr. Breanna myers when he is in [facility] [address]24 [address] [place] [address] Angel Chow MD, [address], [place], [address], 03/02/2025 09:03:32 hematolog ist referral - Dr. Ziegler 2024 025 [place] [address] KirkNia Ziegler MD, [address], [facility], [place], [address], 01/13/2025 07:28:58 Procedures nebulizer treatment (PROC) - albuterol nebulizer treatment 2024 025 [place] [address] Not available 02/03/2025 07:04:57 Surgeries None recorded. Imaging None recorded. Medication Orders Zithromax Z-Danis 250 mg tablet 2024 025 [facility], [address], [place], [address], 01/27/2025 15:14:59 cefdinir 300 mg capsule 2024 025 [facility], [address], [place], [address], 01/27/2025 15:14:57 prednison e 20 mg tablet 2024 025 [facility], [address] [facility] [address], [place], [address], 01/27/2025 15:14:59 ceftriaxo ne 1 gram solution for injection [address] [facility], [address] [facility] [address], [place], [address], 01/30/2025 14:01:15 dexametha sone sodium phosphate 4 mg/mL injection solution [address] [facility], [address] [facility] [address], [place], [address], 01/30/2025 14:01:17 ergocalci ferol (vitamin D2) 1,250 mcg (50,000 unit) capsule 2024 025 [facility], [address] [facility] [address], [place], [address], 12/12/2024 13:58:44 Patient TargetsNo targets recorded. Patient Instructions Encounter Date Encounter Id Patient Instructions Last Modified By Organization Details Last Modified Time 12/09/2024 [id number] Plan 1. Patient probably does need another round of steroids, not necessarily antibiotics but since she follows up with pulmonology tomorrow we will hold off on any repeat therapy and proceed with their consult. Patient is agreeable. She was recommended to continue nebulizers every 4-6 hours. Continues oxygen at night and that was requalified on her last appointment. 2. Lab work completed today. 3. No refills needed at this time. 4. Patient's mammogram up-to-date. 5. I will call her with lab results and proceed accordingly. Asked her to follow-up with me after pulmonology. 6. I will see her back in follow up and we will proceed accordingly. [email or web address] Not available 12/09/2024 15:46:03 12/12/2024 [id number] plan 1. Patient is anemic but her other studies are stable with the exception of folic acid that is actually high. Questioned patient on colonoscopy and she states she is actually scheduled for a colonoscopy with Dr. Byrd next week. 2. Folic acid is high, asked her to go to 3 times weekly on her supplement. 3. Vitamin-D is low, started patient on weekly supplement. 4. Her sodium and chloride are also chronically low but continuing to decrease. She has not on any type of diuretic. Again I would like for her to see hematology to address this as well. 5. Patient continues to struggle with her COPD, she continues to follow with pulmonology. Highly recommended she continue to do her oxygen at home as needed and breathing treatments every 4-6 hours. 6. I will see her back after her colonoscopy and proceed accordingly. [email or web address] Not available 12/12/2024 14:00:46 01/30/2025 [id number] plan 1. Continue on antibiotics till complete. Urine looks clear and yellow so a repeat urinalysis was not completed today but will be on return visit. 2. Keep appointment with urology next week. 3. Recommended that she stay with Dr. Angel Chow since she has followed with him in the past and they are agreeable but they would like to see him in [place] only since she is living with her daughter right now. 4. Referral to pulmonology in [place] as they requested. 5. Skin tear was cleaned and redressed. Skin care measures discussed. 6. Continue to follow with home health, physical and occupational therapies as well. 7. I will see her back in 2 weeks for follow-up, sooner if needed. [email or web address] Not available 01/30/2025 15:06:[address] Ziegler Referring Physician: Debora Mckeon, Family Medicine, Encounter Date: 12/12/2024 Front Counter Attendant Referral for Co ngestive heart failure please set up follow-up with Dr. Angel Chow when he is in [place] Referring Physician: Debora Mckeon, Family Medicine, Encounter Date: 01/30/2025 Results Created Date Observation Date Name Description Value Unit Range Abnormal Flag Note LastModifiedBy Organization Detail LastModifiedTime 12/09/19 25 12/09/2024 CBC WITH AUTO DIFF WBC 8.9 10 4.5-11 .5 Not Available [facility] (Lab) [address] [facility] [place], [address], 12/09/2024 16:52:43 12/09/19 25 12/09/2024 CBC WITH AUTO DIFF RBC 3.60 10 4.00-5 .40 low Not Available [facility] (Lab) [address] [facility] [place], [address], 12/09/2024 16:52:43 12/09/19 25 12/09/2024 CBC WITH AUTO DIFF hemoglobin 9.5 g/dL 12.0-1 5.0 low Not Available [facility] (Lab) [address] [facility] [place], [address], 12/09/2024 16:52:43 12/09/19 25 12/09/2024 CBC WITH AUTO DIFF hematocrit 29.3 % 35.0-4 9.0 low Not Available [facility] (Lab) [address] [facility] [place], [address], 12/09/2024 16:52:43 12/09/19 25 12/09/2024 CBC WITH AUTO DIFF MCV 81.4 fL 80-100 Not Available [facility] (Lab) [address] [facility] [place], [address], 12/09/2024 16:52:43 12/09/19 25 12/09/2024 CBC WITH AUTO DIFF MCH 26.4 pg 26-32 Not Available [facility] (Lab) [address] [facility] [place], [address], 12/09/2024 16:52:43 12/09/19 25 12/09/2024 CBC WITH AUTO DIFF MCHC 32.4 g/dL 32-36 Not Available [facility] (Lab) [address] [facility] [place], [address], 12/09/2024 16:52:43 12/09/19 25 12/09/2024 CBC WITH AUTO DIFF RDW 17.1 % 11.5-1 4.5 high Not Available [facility] (Lab) [address] [facility] [place], [address], 12/09/2024 16:52:43 12/09/19 25 12/09/2024 CBC WITH AUTO DIFF platelet count 232 10 150-45 0 Not Available [facility] (Lab) [address] [facility] [place], [address], 12/09/2024 16:52:43 12/09/19 25 12/09/2024 CBC WITH AUTO DIFF mean platelet volume 9.1 fL 6.8-10 .2 Not Available [facility] (Lab) [address] [facility] [place], [address], 12/09/2024 16:52:43 12/09/19 25 12/09/2024 CBC WITH AUTO DIFF manual differential NOT INDICA TORREY Not Available [facility] (Lab) [address] [facility] [place], [address], 12/09/2024 16:52:43 12/09/19 25 12/09/2024 CBC WITH AUTO DIFF ne% 84.3 % 50-70 high Not Available [facility] (Lab) [address] [facility] [place], [address], 12/09/2024 16:52:43 12/09/19 25 12/09/2024 CBC WITH AUTO DIFF lymphs 9.0 % 18-42 low Not Available [facility] (Lab) [address] [facility] [place], [address], 12/09/2024 16:52:43 12/09/19 25 12/09/2024 CBC WITH AUTO DIFF MO% 5.6 % 2-11 Not Available [facility] (Lab) [address] [facility] [place], [address], 12/09/2024 16:52:43 12/09/19 25 12/09/2024 CBC WITH AUTO DIFF eo% 0.3 % 1-3 low Not Available [facility] (Lab) [address] [facility] [place], [address], 12/09/2024 16:52:43 12/09/19 25 12/09/2024 CBC WITH AUTO DIFF ba% 0.4 % 0.0-2. 0 Not Available [facility] (Lab) [address] [facility] [place], [address], 12/09/2024 16:52:43 12/09/19 25 12/09/2024 CBC WITH AUTO DIFF neutrophils (absolute) 7.5 K/uL 2.0-6. 9 high Not Available [facility] (Lab) [address] [facility] [place], [address], 12/09/2024 16:52:43 12/09/19 25 12/09/2024 CBC WITH AUTO DIFF lymphocytes (absolute) 0.8 K/uL 0.6-3. 4 Not Available [facility] (Lab) [address] [facility] [place], [address], 12/09/2024 16:52:43 12/09/19 25 12/09/2024 CBC WITH AUTO DIFF monocytes (absolute) 0.5 K/uL 0.0-0. 9 Not Available [facility] (Lab) [address] [facility] [place], [address], 12/09/2024 16:52:43 12/09/19 25 12/09/2024 CBC WITH AUTO DIFF eosinophils (absolute) 0.0 K/uL 0.0-0. 7 Not Available [facility] (Lab) [address] [facility] [place], [address], 12/09/2024 16:52:43 12/09/19 25 12/09/2024 CBC WITH AUTO DIFF basophils (absolute) 0.04 K/uL 0.0-0. 2 Not Available [facility] (Lab) [address] [facility] [place], [address], 12/09/2024 16:52:43 12/09/19 25 12/09/2024 RETIC ULOCY TE COUNT reticulocyte count 1.4 % 0.5-1. 5 Not Available [facility] (Lab) [address] [facility] [place], [address], 12/09/2024 16:52:44 12/09/19 25 12/09/2024 TSH TSH 0.95 uIU/m L 0.3600 -3.740 0 Not Available [facility] (Lab) [address] [facility] [place], [address], 12/09/2024 17:50:11 12/09/19 25 12/09/2024 IRON/ TIBC/ %SAT iron 66 ug/dL 50-175 Not Available [facility] (Lab) [address] [place] [address] [place], [address], 12/09/2024 17:50:12 12/09/19 25 12/09/2024 IRON/ TIBC/ %SAT iron binding capacity 311 mcg/d L 250-45 0 Not Available [facility] (Lab) [address] [place] [address] [place], [address], 12/09/2024 17:50:12 12/09/19 25 12/09/2024 IRON/ TIBC/ %SAT %sat 21.2 % 12.0-5 7.0 Not Available [facility] (Lab) [address] [facility] [place], [address], 12/09/2024 17:50:12 12/09/19 25 12/09/2024 VITAM IN B12 vitamin B12 857 pg/mL 193-98 6 Not Available [facility] (Lab) [address] [facility] [place], [address], 12/09/2024 17:50:13 12/09/19 25 12/09/2024 FOLIC ACID folic acid 73.6 NG/mL 8.6-58 .9 high Not Available [facility] (Lab) [address] [facility] [place], [address], 12/09/2024 17:50:14 12/09/19 25 12/09/2024 JORDI TIN ferritin 56 NG/mL 8.0-38 8.0 Not Available [facility] (Lab) [address] [facility] [place], [address], 12/09/2024 17:51:16 12/09/19 25 12/09/2024 COMPR EHENS BRAXTON METAB OLIC PANEL sodium 129 mmol/ L 136-14 5 low Not Available [facility] (Lab) [address] [facility] [place], [address], 12/09/2024 18:40:56 12/09/19 25 12/09/2024 COMPR EHENS BRAXTON METAB OLIC PANEL potassium 4.7 mmol/ L 3.5-5. 1 Not Available [facility] (Lab) [address] [facility] [place], [address], 12/09/2024 18:40:56 12/09/19 25 12/09/2024 COMPR EHENS BRAXTON METAB OLIC PANEL chloride 89 mmol/ L 98.0-1 07.0 low Not Available [facility] (Lab) [address] [place] [address] [place], [address], 12/09/2024 18:40:56 12/09/19 25 12/09/2024 COMPR EHENS BRAXTON METAB OLIC PANEL total CO2 32 mmol/ L 21-32 Not Available [facility] (Lab) [address] [facility] [place], [address], 12/09/2024 18:40:56 12/09/19 25 12/09/2024 COMPR EHENS BRAXTON METAB OLIC PANEL anion gap 12.7 mmol/ L 5.0-15 .0 Not Available [facility] (Lab) [address] [place] [address] [place], [address], 12/09/2024 18:40:56 12/09/19 25 12/09/2024 COMPR EHENS BRAXTON METAB OLIC PANEL glucose 76 mg/dL 70-120 Not Available [facility] (Lab) [address] [facility] [place], [address], 12/09/2024 18:40:56 12/09/19 25 12/09/2024 COMPR EHENS BRAXTON METAB OLIC PANEL BUN 5 mg/dL 7-18 low Not Available [facility] (Lab) [address] [facility] [place], [address], 12/09/2024 18:40:56 12/09/19 25 12/09/2024 COMPR EHENS BRAXTON METAB OLIC PANEL creatinine 0.6 mg/dL 0.6-1. 0 Not Available [facility] (Lab) [address] [facility] [place], [address], 12/09/2024 18:40:56 12/09/19 25 12/09/2024 COMPR EHENS BRAXTON METAB OLIC PANEL BUN/creatini ne ratio 8.3 ratio 9-21 low Not Available [facility] (Lab) [address] [facility] [place], [address], 12/09/2024 18:40:56 12/09/19 25 12/09/2024 COMPR EHENS BRAXTON METAB OLIC PANEL estimated glom filtration rate >60 mL/mi n 60.0- Not Available [facility] (Lab) [address] [facility] [place], [address], 12/09/2024 18:40:56 12/09/19 25 12/09/2024 COMPR EHENS BRAXTON METAB OLIC PANEL calcium 8.6 mg/dL 8.6-9. 8 Not Available [facility] (Lab) [address] [facility] [place], [address], 12/09/2024 18:40:56 12/09/19 25 12/09/2024 COMPR EHENS BRAXTON METAB OLIC PANEL bilirubin, total 0.02 mg/dL 0.2-1. 0 low USE OF THIS ASSAY IS NOT RECOM EMELY D FOR PATIE NTS UNDER GOING TREAT MENT WITH ELTRO MBOPA G DUE TO THE POTEN TIAL FOR FALSE LY ELEVA TORREY RESUL TS. Not Available [facility] (Lab) [address] [facility] [place], [address], 12/09/2024 18:40:56 12/09/19 25 12/09/2024 COMPR EHENS BRAXTON METAB OLIC PANEL AST (SGOT) 13 IU/L 15-37 low Not Available [facility] (Lab) [address] [facility] [place], [address], 12/09/2024 18:40:56 12/09/19 25 12/09/2024 COMPR EHENS BRAXTON METAB OLIC PANEL ALT (SGPT) 20 IU/L 12-78 Not Available [facility] (Lab) [address] [place] [address] [place], [address], 12/09/2024 18:40:56 12/09/19 25 12/09/2024 COMPR EHENS BRAXTON METAB OLIC PANEL alk phos 134 IU/L 54-369 Not Available [facility] (Lab) [address] [facility] [place], [address], 12/09/2024 18:40:56 12/09/19 25 12/09/2024 COMPR EHENS BRAXTON METAB OLIC PANEL total protein 6.4 g/dL 6.4-8. 2 Not Available [facility] (Lab) [address] [facility] [place], [address], 12/09/2024 18:40:56 12/09/19 25 12/09/2024 COMPR EHENS BRAXTON METAB OLIC PANEL albumin 0.6 g/dL 3.4-5. 0 low Not Available [facility] (Lab) [address] [facility] [place], [address], 12/09/2024 18:40:56 12/09/19 25 12/09/2024 COMPR EHENS BRAXTON METAB OLIC PANEL globulin 5.8 g/dL 1.3-3. 5 high Not Available [facility] (Lab) [address] [facility] [place], [address], 12/09/2024 18:40:56 12/09/19 25 12/09/2024 COMPR EHENS BRAXTON METAB OLIC PANEL alb/glob ratio 0.1 ratio 1.0-3. 9 low Not Available [facility] (Lab) [address] [facility] [place], [address], 12/09/2024 18:40:56 12/09/1912/09/2024 COMPR EHENS BRAXTON METAB OLIC PANEL osmolality, calculated 255 mOsm/ kg 272-29 5 low Not Available [facility] (Lab) [address] [facility] [place], [address], 12/09/2024 18:40:56 12/09/1912/10/2024 VITAM IN D, 25-HY DROXY vitamin D, 25-hydroxy 14.8 NG/mL 30.0-1 00.0 low Vitam in D defic iency has been defin ed by the Insti tute of Medic ine and an Endoc rine Socie ty pract ice guide line as a level of serum 25-OH vitam in D less than 20 ng/mL (1,2) . The Endoc rine Socie ty went on to replaced by [facility] anson er defin e vitam in D insuf ficie ncy as a level betwe en 21 and 29 ng/mL (2). 1. IOM (Inst itute of Medic ine). 2010. Dieta ry refer ence intak es for calci um and D. Karen do [place]: The Natio nal [facility] Press . 2. Alisa LECHUGA, Alex coulter [place], Teodoro off-F bethanie i LOPEZ, et al. Evalu ation , treat ment, and preve ntion of vitam in D defic iency : an Endoc rine Socie ty clini dany pract ice guide line. JCEM. 2010; 96(7) :1911 -30. Perfo rmed at: CB - [facility] [address] [facility], [place] [id number] Lab Direc tor: Mani mcdaniel PhD, Phone : [phone] Not Available [facility] (Lab) [address] [facility] [place], [address], 12/10/2024 09:13:13 12/09/19 25 12/10/2024 LIPID PANEL triglyceride s 43 mg/dL 1-150 Not Available [facility] (Lab) [address] [facility] [place], [address], 12/10/2024 11:30:27 12/09/19 25 12/10/2024 LIPID PANEL cholesterol 145 mg/dL 0-200 Not Available [facility] (Lab) [address] [place] [address] [place], [address], 12/10/2024 11:30:27 12/09/19 25 12/10/2024 LIPID PANEL HDL chol 84 mg/dL 35-60 high Not Available [facility] (Lab) [address] [place] [address] [place], [address], 12/10/2024 11:30:27 12/09/19 25 12/10/2024 LIPID PANEL chol/HDL ratio 2 -4.44 Not Available [facility] (Lab) [address] [place] [address] [place], [address], 12/10/2024 11:30:27 12/09/19 25 12/10/2024 LIPID PANEL LDL (calculated) 52 mg/dL -130 Not Available [facility] (Lab) [address] [facility] [place], [address], 12/10/2024 11:30:27 01/28/20 25 01/27/2025 urina lysis , dipst ick Leukocytes (reference range) small Not Available [place] [address] [facility], [place], [address], 01/27/2025 14:58:23 01/28/20 25 01/27/2025 urina lysis , dipst ick Nitrite (reference range:) negati ve Not Available [address], [address], 01/27/2025 14:58:23 01/28/20 25 01/27/2025 urina lysis , dipst ick Urobilinogen (reference range) 0.2 Not Available [address], [address], 01/27/2025 14:58:23 01/28/20 25 01/27/2025 urina lysis , dipst ick Protein (reference range) negati ve Not Available [address], [address], 01/27/2025 14:58:23 01/28/20 25 01/27/2025 urina lysis , dipst ick pH (reference range 5-8.5) 6.5 Not Available [address], [address], 01/27/2025 14:58:23 01/28/20 25 01/27/2025 urina lysis , dipst ick Blood (reference range:) small Not Available [address], [address], 01/27/2025 14:58:23 01/28/20 25 01/27/2025 urina lysis , dipst ick Specific [place] (reference range) 1.010 Not Available [address], [address], 01/27/2025 14:58:23 01/28/20 25 01/27/2025 urina lysis , dipst ick Ketone (reference range) negati ve Not Available [address], [address], 01/27/2025 14:58:23 01/28/20 25 01/27/2025 urina lysis , dipst ick Bilirubin (reference range) negati ve Not Available [address], [address], 01/27/2025 14:58:23 01/28/20 25 01/27/2025 urina lysis , dipst ick Glucose (reference range) negati ve Not Available [address], [address], 01/27/2025 14:58:23 01/28/20 25 01/27/2025 urina lysis , dipst ick Color (reference range: yellow-brown ) Yellow Not Available [address], [address], 01/27/2025 14:58:23 12/18/19 25 12/18/2024 XR, chest No observ ation record ed. [email or web address] Not Available 2024 13:10:17 12/18/19 25 12/18/2024 CT, head + brain , w/o contr ast No observ ation record ed. Not Available 2024 13:39:21 12/29/19 25 12/29/2024 CT, chest , w/o contr ast No observ ation record ed. [email or web address] Not Available 2024 13:01:17 01/01/20 25 01/01/2025 XR, chest No observ ation record ed. Not Available 2024 13:55:19 01/06/20 25 01/06/2025 US, doppl er echoc ardio gram No observ ation record ed. [email or web address] Not Available 2024 13:22:36 Result Notes None recorded. Problems Name Problem SNOMED Code Status Onset Date Resolution Date Notes Provider Name and Address Organization Details Recorded Time Congestion of nasal sinus 16191901 Active 2023 JUAN Hernandez - [facility] - [place] [facility] [place] 4 14:05:24 Sore throat 442721203 Active 2023 Matty jenkins [place] - [facility] - [place] 4 14:05:53 Gastroesoph ageal reflux disease 728684266 Active 2023 Debora Mckeon NP [address] [place] [address],Lynnette te [address] [place] [address], [address], [place] - [facility] - [place] 4 14:46:41 Seasonal allergic rhinitis 600279032 Active 2023 Debora Mckeon NP [address] [place] [address],Lynnette te [address] [place] [address], [address], [place] - [facility] - [place] 4 10:54:01 Right lower zone pneumonia 875682152 Active 2023 ANY SAUCEDO [facility] [employer] [facility],Lynnette te [address] [place] [address], [address], [place] - [facility] - [place] 4 16:25:51 Acute bronchitis 92819935 Active 2024 Debora Mckeon NP [address] [place] [address],Lynnette te [address] [place] [address], [address], [place] - [facility] - [place] 5 16:25:40 Anemia 249744141 Active 2024 Debora Mckeon NP [address] [place] [address],Lynnette te [address], [place], [address], [place] - [facility] - [place] 5 13:56:28 Hypoxemia 523547805 Active 2024 ANY SAUCEDO [facility] [employer] [facility],[address], [address], [place] - [facility] - [facility] & [place] 5 14:43:58 Amnesia 35761189 Active 2024 ANY SAUCEDO [facility] [employer] [facility] te [address] [place] [address], [address], [place] - [facility] - [facility] & [place] 5 14:44:41 Open wound of left upper limb Active 2024 ANY SAUCEDO [address] [place] [address],[address], [address], [place] - [facility] - [facility] & [place] 5 14:57:33 Dyspnea 886334533 Active 2024 ANY SAUCEDO [facility] [employer] [facility] te [address] [place] [address], [address], [place] - [facility] - [facility] & [place] 5 14:57:55 Chronic urinary tract infection 891053534 Active 2024 ANY SAUCEDO [facility] [employer] [facility] te [address] [place] [address], [address], [place] - [facility] - [facility] & [place] 5 14:58:17 Pneumonia 881902665 Active 2024 ANY SAUCEDO [address] [place] [address],[facility] te [address] [place] [address], [address], [place] - [facility] - [facility] & [place] 5 15:11:11 Retention of urine 860210099 Active 2024 Debora Mckeon NP [address] [place] [address],[address], [address], [place] - [facility] - [facility] & [place] 5 15:03:27 Adult failure to thrive syndrome 369818620 Active 2024 Debora Mckeon NP [address] [place] [address],[address], [place], [address], [place] - [facility] [place] 5 15:03:44 Rheumatoid arthritis 52657366 Active 2021 Debora Mckeon NP [facility] [employer] [facility],[address], [place], [address], [place] [facility] [place] 2 14:37:09 Osteoarthri tis 468255687 Active 2021 Debora Mckeon, MYLA [facility] [employer] [facility],[address], [place], [address], [place] [facility] [place] 2 14:37:01 Spinal stenosis 11867886 Active 2021 Debora Mckeon, MYLA [facility] [employer],[address], [place], [address], [place] [facility] [place] 2 14:37:11 Irritable bowel syndrome 52465470 Active 2021 Debora Mckeon NP [facility] [employer] [facility],[address], [place], [address], [place] [facility] [place] 2 14:37:03 Essential hypertensio n 69427941 Active 2021 Debora Mckeon NP [facility] [employer] [facility],[address], [place], [address], [place] [facility] [place] 2 14:36:45 Degenerativ e disorder 760708820 Active 2021 Debora Mckeon NP [facility] [employer] [facility],[address], [place], [address], [place] [facility] [place] 2 14:36:43 Peripheral vascular disease 264757062 Active 2021 Debora Mckeon NP [facility] [employer] [facility],[address], [place], [address], [place] [facility] [place] 2 14:37:06 Chronic myelopathy 0038068043511 08 Active 2021 Debora Mckeon NP [address] [place] [address],[address], [place], [address], [place] [facility] & [place] 2 14:36:33 Polyneuropa thy 78355299 Active 2021 Debora Mckeon, MYLA [address] [place] [address],[address], [place], [address], [place] [facility] [place] 2 14:37:16 Vitamin D deficiency 23980599 Active 2021 Debora Mckeon, MYLA [address] [place] [address],[address], [place], [address], [place] [facility] [place] 2 14:37:14 Fatigue 88456726 Active 2021 Hazel Cox g[place], [place] - [place] - [place] [facility] [place] 2 13:39:17 Carpal tunnel syndrome 94391253 Active 2021 Debora Mckeon NP [address] [place] [address],[address], [place], [address], [place] [facility] [place] 2 14:36:31 Chronic obstructive pulmonary disease 71922368 Active 2021 Debora Mckeon NP [address] [place] [address],[address], [place], [address], [place] [facility] [place] 2 14:36:36 Congestive heart failure 72298612 Active 2021 Debora Mckeon NP [address] [place] [address],[address], [place], [address], [place] [facility] [place] 2 14:36:40 Hyperlipide gianna 11543281 Active 2021 Debora Mckeon NP [address] [place] [address],[address], [place], [address], [place] [facility] [place] 2 14:36:58 Peripheral edema 651077540 Active 2021 Debora Mckeon NP [address] [place] [address],[address], [place], [address], [place] 2 14:36:18 Electrolyte imbalance 633382211 Active 2021 Debora Mckeon NP [address] [place] [address],[address], [place], [address], [place] [facility] [place] 2 16:08:55 Benign hypertensio n 03018233 Active 2021 Hazel Cox null, [place] - [place] - [place] [facility] [place] 2 10:27:16 Cough 98717690 Active 2021 Beatriz Starr null, [place] - [place] [facility] [place] 2 13:20:46 Acute exacerbatio n of chronic obstructive pulmonary disease 989842477 Active 2021 ANY SAUCEDO [address] [place] [address],[address], [place], [address], [place] [facility] [place] 5 15:11:28 Candidiasis of mouth 93459026 Active 2021 ANY SAUCEDO [address] [place] [address],[address], [place], [address], [place] [facility] [place] 5 16:55:32 Acute urinary tract infection 040211672 Active 2022 Debora Mckeon NP [address] [place] [address],[address], [place], [address], [place] [facility] [place] 3 09:41:45 Standard chest X-ray abnormal 041271848 Active 2022 Debora Mckeon NP [address] [place] [address],[address], [place], [address], [place] [facility] [place] 3 09:43:34 Dysfunction of bilateral eustachian tubes 4038995555622 100 Active 2022 DIONNE MENDEZ MD [address] [place] [address] Drive, [address], [place], [address], [place] [facility] [place] 3 15:41:50 Thyroid nodule 152004610 Active 2022 Debora Mckeon NP [address] [place] [address],[address], [place], [address], [place] [facility] [place] 3 10:07:23 Mixed hyperlipide gianna 519289162 Active 2022 Debora Mckeon NP [address] [place] [address],[address], [place], [address], [place] [facility] [place] 3 11:45:13 Abscess of skin of right wrist 7968014508598 9108 Active 2022 Debora Mckeon NP [address] [place] [address],[address], [place], [address], [place] [facility] [place] 3 08:44:25 Pain in throat 209204723 Active 2022 Rosey Saldaña null, [place] - [place] - [place] [facility] [place] 3 16:49:43 Streptococc al sore throat 72506910 Active 2022 Debora Mckeon NP [address] [place] [address],[address], [place], [address], [place] [facility] [place] 3 16:51:20 Pain in throat 446750807 Active 2022 Debora Mckeon NP [address] [place] [address],[address], [place], [address], [place] [facility] [place] 3 16:51:20 Multiple joint pain 67014295 Active 2022 Debora Mckeon NP [address] [place] [address],[address], [place], [address], [place] [facility] [place] 3 13:20:22 Acute pharyngitis 788448557 Active 2022 Debora Mckeon NP [address] [place] [address],[address], [address], [place] [facility] [place] 3 14:07:29 Oral erythematou s candidiasis 991238017 Active 2022 Debora Mckeon NP [address] [place] [address],[address], [address], [place] 3 14:19:30 Candidiasis of skin 16667169 Active 2022 ANY SAUCEDO [address] [place] [address],[address], [place], [address], [place] [facility] [place] 5 16:57:02 Gastro-esop hageal reflux disease with esophagitis 723574337 Active 2022 Debora Mckeon NP [address] [place] [address],[address], [place], [address], [place] [facility] [place] 3 14:24:02 Candidiasis of vagina 30552719 Active 2022 Debora Mckeon, MYLA [address] [place] [address],[address], [place], [address], [place] [facility] [place] 3 09:25:19 Influenza caused by Influenza B virus 28596748 Active 2023 Debora Mckeon NP [address] [place] [address],[address], [address], [place] 4 15:44:42 Blood glucose outside reference range 726961912 Active 2023 Debora Mckeon NP [address] [place] [address],[address], [place], [address], [place] [facility] [place] 4 10:55:01 Conductive hearing loss of right ear 1701733287 Active 2023 BEATRIZ EVANSJACINDA [address] [place] [address],[address] [facility], [place], [address], [place] [facility] [place] 4 10:11:05 Gastroesoph ageal reflux disease without esophagitis 203753182 Active 2023 Terry Byrd MD [address] [place] [address],[address], [address], [place] [facility] [place] 4 06:36:24 Dysphagia 75773414 Active 2023 Terry Byrd MD [address] [place] [address],[facility] te [address] [place] [address], [address], [place] 4 09:44:22 Regurgitati on of food 525915910 Active 2023 Terry Byrd MD [address] [place] [address],[facility] te [address] [place] [address], [address], [place] 4 09:45:04 Folic acid deficiency 675595755 Active 2023 Debora Mckeon NP [address] [place] [address],[address] [place] [address], [address], [place] [facility] [place] 4 09:31:22 Degeneratio n of lumbar interverteb ral disc 23118870 Active 2023 Debora Mckeon NP [address] [place] [address],[address] [place] [address], [address], [place] [facility] [place] 4 09:24:39 Hyponatremi a 84571703 Active 2023 Debora Mckeon NP [address] [place] [address],[address], [place], [address], [place] [facility] [place] 4 09:21:26 Constipatio n 28736026 Active 2023 Debora Mckeon, MYLA [address] [place] [address],[address], [place], [address], [place] [facility] [place] 4 10:16:23 Near syncope 412669164 Active 2023 Debora Mckeon NP [address] [place] [address],[address], [place], [address], [place] [facility] [place] 4 09:53:29 Recurrent falls 735419586 Active 2023 Debora Mckeon NP [address] [place] [address],[address], [place], [address], [place] [facility] [place] 4 09:55:34 Tobacco dependence syndrome 05099037 Active 2023 Terry Byrd MD [address] [place] [address],[address], [place], [address], [facility] - [place] - [place] & [place] 4 09:19:07 Problem Notes None recorded. Procedures Surgical History Date Name Laterality Status Provider Name and Address Organization Details Recorded Time 02/29/20 24 Medicare Annual Wellness Visit Health Risk Assessment completed Rosey Sandy [facility] & [place] 02/29/2024 09:11:32 08/15/20 23 Removal of foreign body from ear canal completed DIONNE MENDEZ MD [address] [place] [address], [address], [place], [address], [facility] - [facility] & [place] 08/15/2023 09:51:17 05/31/20 23 EMG/ Nerve Conduction Study completed Milo Joseph M.D [address] [place] [address], [address], [place], [address], [facility] - [facility] & [place] 06/04/2023 11:28:10 01/20/20 23 Tympanostomy with placement of tube completed DIONNE MENDEZ MD [address] [place] [address], [address], [place], [address], [facility] - [facility] & [place] 01/19/2023 16:05:29 08/08/20 22 Excision and closure completed Sudheer Oro MD [address] [facility],[address], [place], [address], [facility] & [place] 08/08/2022 10:07:19 11/12/19 19 Joint Replacement completed Violeta Shetty [facility] & [place] 08/03/2022 09:24:22 lumbar spinal fusion completed Not Available [facility] 07/31/2022 15:53:39 prosthetic total arthroplasty of right shoulder completed Not Available [facility] 07/31/2022 15:53:39 incision and drainage of abscess completed Hazel Cox [facility] & [place] 07/31/2022 16:17:54 Imaging Results Imaging Date Name Status LastModified by Organization Details LastModified Time 12/18/2024 XR, chest completed [email or web address] Information no t available 12/18/2024 13:10:17 12/18/2024 CT, head + brain, w/o contrast completed [email or web address] Information not available 12/18/2024 13:39:21 12/29/2024 CT, chest, w/o contrast completed [email or web address] Information not available 12/29/2024 13:01:17 01/01/2025 XR, chest completed [email or web address] Information no t available 01/01/2025 13:55:19 01/06/2025 US, doppler echocardiogram completed [email or web address] Information not available 01/06/2025 13:22:36 Procedure Notes None recorded. Medical Equipment None [...] Take as directed by Dr. Byrd's Office ,/ in the evening on 01/03 half on [...] 2024 active Not Available Not Available Not Tarun lable Entresto 24 mg-26 mg tablet TAKE [...] saturation in Arterial blood by Pulse oximetry Heart rate Systolic blood pressure Diastolic blood pressure Provider Name and Address Organization Details Last Updated DateTime 5 165.1 cm 17.5 kg/m2 19624.2 g 96.8 [degF] 98 % 98 % 81 /min 126 mm[Hg] 74 mm[Hg] Lyric MORAN [facility] & [place] 5 15:19:05 Date Recorded Body height Body mass index (BMI) Body weight Body temperature Oxygen saturation Oxygen saturation in Arterial blood by Pulse oximetry Heart rate Systolic blood pressure Diastolic blood pressure Provider Name and Address Organization Details Last Updated DateTime 5 165.1 cm 17.5 kg/m2 77202.2 g 96.2 [degF] 94 % 94 % 80 /min 132 mm[Hg] 72 mm[Hg] Lyric MORAN [facility] & [place] 5 13:24:03 Date Recorded Body height Body temperature Body mass index (BMI) Body weight Provider Name and Address Organization Details Last Updated DateTime 01/14/2025 165.1 cm 95.4 [degF] 17 kg/m2 82892.42 g Sofia Susanne JUAN [facility] & [place] 01/14/2025 14:38:52 Date Recorded Body height Body mass index (BMI) Body weight Body temperature Oxygen saturation Oxygen saturation in Arterial blood by Pulse oximetry Respiratory rate Heart rate Systolic blood pressure Diastolic blood pressure Provider Name and Address Organization Details Last Updated DateTime 5 165.1 cm 16.3 kg/m2 49167.4 5 g 97.1 [degF] 85 % 85 % 16 /min 85 /min 124 mm[Hg] 74 mm[Hg] February Matty MARTINEZ Akira LUISA [facility] & [place] 5 14:14:07 Date Recorded Body height Body mass index (BMI) Body weight Body temperature Oxygen saturation Oxygen saturation in Arterial blood by Pulse oximetry Respiratory rate Heart rate Systolic blood pressure Diastolic blood pressure Provider Name and Address Organization Details Last Updated DateTime 5 165.1 cm 16.3 kg/m2 91532.4 5 g 96.9 [degF] 92 % 92 % 16 /min 84 /min 108 mm[Hg] 70 mm[Hg] February Starr JUAN Akira LUISA [facility] & [place] 5 14:07:04 Social History Question Answer Notes LastModified by Organizat ion Details LastModified Time Tobacco Smoking Status Current Every Day Smoker Hazel jenkins, [place] - [place] - [place] & [place] 07/26/2022 13:42:00 Do You Have An Advance Directive? No Information not available 07/31/2022 What Is Your Level Of Alcohol Consumption? None Information not available 07/31/2022 Are You Blind Or Do You Have Difficulty Seeing? No Information not available 07/31/2022 What Is Your Level Of Caffeine Consumption? Occasional API-13 Information not available 12/21/2023 What Type Of Diet Are You Following? REGULAR Information not available 03/21/2024 What Was The [...] Anxious, Or Unable To Sleep At Night)? [id number] Information not available 07/31/2022 Do You Use Any Illicit Or Recreational Drugs? No Information not available 07/31/2022 How Many Years Have You Smoked Tobacco? 20 Information not available 07/31/2022 Do You Or Have You Ever Used Any Other Forms Of Tobacco Or Nicotine? No [email or web address] Information not available 03/21/2024 Sex: Unknown Functional [...] available 2024 14:00:08 Father Kidney disease 63 [email or web address] Not available 08/2024 09:33:16 Medical History Condition Response Coronary Artery Disease N None N Gout N Colon Cancer N Kidney Stones N [...] Disorder N Colon Polyps N Heart Attack ([place]) N Diabetes N Bleeding Disorder N Seizures/Epilepsy [...] 50 mcg/0.25mL dose 1 completed JUAN Ca - [facility] 08/28/2022 10:26:58 COVID-19, mRNA, LNP-S, PF, 100 mcg/0.5mL dose or 50 mcg/0.25mL dose 1 completed JUAN Crooks - [facility] 10/15/2023 13:59:14 COVID-19, mRNA, LNP-S, PF, 100 mcg/0.5mL dose or 50 mcg/0.25mL dose 1 completed Rosey jenkins [place] - [place] [facility] 10/15/2023 13:59:14 COVID-19, mRNA, LNP-S, PF, 100 mcg/0.5mL dose or 50 mcg/0.25mL dose 1 completed JUAN Ca - [facility] 08/28/2022 10:26:58 Td (adult), 2 Lf tetanus toxoid, preservative free, adsorbed 8 completed Hazel jenkins [place] - [place] [facility] 08/28/2022 10:26:58 Past Encounters Encounter ID Performer Location Encounter Start Date Encounter Closed Date Diagnosis/Indication Diagnosis SNOMED-CT Code Diagnosis ICD10 Code Diagnosis Note [id number] Debora Mckeon NP [facility] [address] [place] [address] 07/26/2022 13:33:20 07/26/2022 15:09:08 Cellulitis of left upper limb 0530825338 [id number] L03.114 Congestive heart failure 24772218 I50.9 Essential hypertension 06359328 I10 Chronic ob structive pulmonary disease 48657114 J44.9 [id number] Yun Mensah DO [facility] [address] [place] [address] 07/27/2022 13:43:41 07/27/2022 13:44:06 Cellulitis of left lower limb 8044560314 1599135 L03.116 [id number] Debora Mckeon NP [address] [place] [address] 07/31/2022 15:45:35 07/31/2022 16:49:30 Cellulitis of left upper limb 7897628664 0972078 L03.114 Chronic ob structive pulmonary disease 82544723 J44.9 Abscess of olecranon bursa of left elbow 5902316555 70340 M71.022 [id number] YESSY BUENO NP Adenike valle [address] [address] 08/03/2022 08:35:54 08/03/2022 10:38:23 Postoperative care [id number] Z48.89 her wound is without signs of infection. Sutures are intact. She has a large open area in the middle where the abscess was removed. drainage noted today is clear. She denies pain. She has decent motion of the elbow. I would recommend continuing to pack this. We are also going to place her in a brace to keep the elbow locked in extension. It may be possible to close the incision next week. She will also continue on Bactrim and IV vancomycin . We will see her back the beginning next week to recheck. She also has an area on her left breast that was noticed by the patient recently. We did look at it today did not appear to be acutely infected. Would recommend that she see general surgery for this. We had her set up to see Dr. rajput. It is possible if it needs an excision that both surgeries could be done together next week. [id number] MD STELLA Bonds [facility] [address] [place] [address] 08/08/2022 09:28:23 08/08/2022 10:37:07 Infection of olecranon bursa of left elbow 1126511500 738158 M71.122 her wound is appropriat anatoly healing but there is not great granulatio n tissue at this point I would recommend a wound VAC at 125 mm of mercury continuous to change every 3 days. In addition I think we need to do an irrigation debridemen t with attempted closure next week. She is going to continue her antibiotic s her wound size at this point is 3 cm x 2 cm and approximat anatoly 5 mm deep I have discussed with the patient the risks of surgery including, risk of infection, risks of stiffness, damage to nerves and vessels as well as nerve pain, continued pain, stiffness and loss of motion, and wound problems. We have discussed with the patient the importance of compliance with postoperat braxton rehabilita tion and restrictio ns. We have discussed the risk of addiction with pain medication and the importance to discontinu e pain medication as soon as possible. We have discussed with the patient the risk need for further procedures , RSD, blood clots, damage to cartilage. I have also discussed with the patient lost function and possible stiffness and need for additional surgery. I have also verbalized an discussed the risk of anesthesia and medical complicati ons with surgery including but not limited to heart attack, stroke and other medical complicati ons. The patient verbalizes understand ing and wishes to proceed. [id number] MD STELLA Guerin General Surgery [address] [facility] [address] [place] [address] 08/08/2022 08:06:18 08/08/2022 09:26:44 Abscess of breast 03355320 N61.1 Incision and drainage. Will plan for wet-to-dry saline dressing changes. She currently is on vancomycin and Bactrim. Mass of left breast 1224 942478 8871954 N63.20 biopsy pending Tobacco de pendence syndrome 82555647 F17.200 recommend abstinence Chronic ob structive pulmonary disease 10649101 J44.9 Open wound of elbow 1256 09269 S51.002D the patient is being followed by Dr. Mo Cortez. [id number] Yun Mensah DO [place] [address] 9 08/14/2022 13:51:03 08/14/2022 14:46:40 Abscess of olecranon bursa of left elbow 5315287696 52613 M71.022 Essential hypertension 29276429 I10 Peripheral edema 6120673 00 R60.9 [id number] Debora Mckeon NP [place] [address] 9 08/17/2022 15:17:28 08/17/2022 16:19:40 Congestive heart failure 84607515 I50.9 Electrolyte imbalance 10 3014733 E87.8 [id number] MYLA ORTEGA [facility] [place] [address] 08/18/2022 08:49:20 08/18/2022 09:32:58 Infection of olecranon bursa of left elbow 1938883541 647616 M71.122 [id number] MYLA ORTEGA [facility] [place] [address] 08/23/2022 14:11:25 08/23/2022 15:58:37 Infection of olecranon bursa of left elbow 9203613227 643710 M71.122 [id number] MD STELLA Guerin General Surgery [address] [place] [address] [address] [place] [address] 08/22/2022 10:18:01 08/22/2022 10:27:21 Change of dressing 37102022 Z48.01 dry dressing as needed [id number] Yun Mensah DO [address] [place] [address] 08/28/2022 10:11:07 08/28/2022 11:29:45 Benign hypertension 03081629 I10 Chronic ob structive pulmonary disease 92083522 J44.9 Essential hypertension 72296607 I10 Congestive heart failure 95634068 I50.9 Degenerative disorder 36 6011444 R69 [id number] YESSY BUENO [facility] [address] [place], [place] [address] 09/01/2022 09:19:37 09/01/2022 11:07:22 Infection of olecranon bursa of left elbow 9713388274 746803 M71.122 Postoperative care [id number] Z48.89 [id number] MD STELLA Bonds [facility] [address] [place] [address] 09/06/2022 08:54:50 09/06/2022 10:07:31 Infection of olecranon bursa of left elbow 9479170485 198777 M71.122 her wound is appropriat anatoly healing but there is not great granulatio n tissue at this point I would recommend a wound VAC at 125 mm of mercury continuous to change every 3 days. In addition I think we need to do an irrigation debridemen t with attempted closure next week. She is going to continue her antibiotic s her wound size at this point is 3 cm x 2 cm and approximat anatoly 5 mm deep I have discussed with the patient the risks of surgery including, risk of infection, risks of stiffness, damage to nerves and vessels as well as nerve pain, continued pain, stiffness and loss of motion, and wound problems. We have discussed with the patient the importance of compliance with postoperat braxton rehabilita tion and restrictio ns. We have discussed the risk of addiction with pain medication and the importance to discontinu e pain medication as soon as possible. We have discussed with the patient the risk need for further procedures , RSD, blood clots, damage to cartilage. I have also discussed with the patient lost function and possible stiffness and need for additional surgery. I have also verbalized an discussed the risk of anesthesia and medical complicati ons with surgery including but not limited to heart attack, stroke and other medical complicati ons. The patient verbalizes understand ing and wishes to proceed. [id number] MD STELLA Bonds [facility] [address] [place] [address] 9 09/13/2022 10:50:59 09/13/2022 12:02:33 Infection of olecranon bursa of right elbow 3475305442 454512 M71.121 Infection of olecranon bursa of left elbow 1355279191 116795 M71.122 [id number] MD STELLA Bonds [facility] [address] [place] [address] 9 09/20/2022 10:48:22 09/20/2022 12:45:09 Infection of olecranon bursa of left elbow 3277555054 878556 M71.122 Infection of olecranon bursa of right elbow 4913781298 379783 M71.121 [id number] Yun Mensah DO [address] [address] 09/25/2022 10:22:24 09/25/2022 11:07:41 Chronic obstructive pulmonary disease 73346853 J44.9 Essential hypertension 30076866 I10 Congestive heart failure 98770781 I50.9 [id number] MD STELLA Bonds [place] [address] 9 10/04/2022 10:39:21 10/04/2022 12:20:23 Dehiscence of surgical wound 00405601 T81.30XA [id number] MD STELLA Bonds [place] [address] 9 10/11/2022 08:52:25 10/11/2022 10:14:33 Infection of olecranon bursa of left elbow 6419228243 273222 M71.122 [id number] Debora Mckeon NP [address] [address] 10/10/2022 13:17:10 10/10/2022 14:37:54 Cough 46758862 R05.9 Acute exac erbation of chronic obstructive pulmonary disease 861867840 J44.1 [id number] Mo Cortez MD Adenike valle [facility] [address] [place] [address] 10/19/2022 09:53:32 10/19/2022 11:37:19 Infection of olecranon bursa of left elbow 0250704905 642262 M71.122 [id number] Debora Mckeon NP [facility] [address] [facility] [place] [address] 10/17/2022 09:48:04 10/17/2022 10:13:07 Chronic obstructive pulmonary disease 22700913 J44.9 Essential hypertension 42718036 I10 [id number] Debora Mckeon NP [place] [address] [place] [address] 10/26/2022 09:56:48 10/26/2022 10:57:00 Cough 26680431 R05.9 Acute exac erbation of chronic obstructive pulmonary disease 191476764 J44.1 [id number] Debora Mckeon NP [place] [address] [address] [facility] [place] [address] 11/01/2022 14:46:56 11/01/2022 14:59:54 Acute exacerbation of chronic obstructive pulmonary disease 898914228 J44.1 Chronic ob structive pulmonary disease 66288623 J44.9 Essential hypertension 83334163 I10 [id number] Yun Mensah DO [place] [address] [address] [facility] [place] [address] 11/14/2022 08:48:42 11/14/2022 09:46:46 Congestive heart failure 35197632 I50.9 Benign hypertension 1072 5009 I10 Chronic ob structive pulmonary disease 83363059 J44.9 Polyneuropathy 68384681 G62.9 [id number] Yun Mensah DO [address] [place] [address] 12/18/2022 14:44:32 12/18/2022 16:22:18 Congestive heart failure 34590396 I50.9 Essential hypertension 71277814 I10 Chronic ob structive pulmonary disease 75315474 J44.9 [id number] Debora Mckeon NP [place] [address] [place] [address] 12/26/2022 08:58:26 12/26/2022 10:03:19 Congestive heart failure 46617407 I50.9 Essential hypertension 50471399 I10 Chronic ob structive pulmonary disease 31126742 J44.9 Acute urin elizabeth tract infection 007887741 N39.0 Standard c hest X-ray abnormal 179635683 R93.89 [id number] Debora Mckeon NP [place] [address] [place] [address] 01/09/2023 09:13:31 01/09/2023 09:52:15 Chronic obstructive pulmonary disease 18144807 J44.9 Congestive heart failure 90187824 I50.9 [id number] DIONNE MENDEZ MD [facility] [address] [place] [address] 01/15/2023 15:08:54 01/15/2023 15:38:45 Dysfunction of bilateral eustachian tubes 8212847000 820810 H69.93 - Discussed diagnosis of obstructiv e eustachian tube dysfunctio n and its role in causing pain in the ears while undergoing HBO therapy - Treatment options include observatio n, medical therapy (flonase BID, zyrtec daily, ear popping (self insufflati on, otovent), myringotom y with PE tubes, balloon dilation of eustachian tube. - Bilateral myringotom y with tympanosto my tube placement was recommende d. Risks, benefits, and alternativ es were explained to the patient. Surgical risks include bleeding, infection, pain, hearing loss, persistent tympanic membrane perforatio n. She would like to think about it before proceeding .- She is currently scheduled to come back on Sunday to have the tubes placed in office in order to prevent further delay in treatment [id number] DIONNE MENDEZ MD [facility] [address] [facility] [place] [address] 01/19/2023 15:15:24 01/19/2023 15:51:22 Dysfunction of bilateral eustachian tubes 2225623117 033505 H69.93 - Patient with issues with ETD while undergoing HBO therapy- Bilateral tympanosto my tubes placed in office today- Ofloxacin drops, 5 drops BID x 5 days [id number] Debora Mckeon NP [address] [place] [address] 01/30/2023 14:31:00 01/30/2023 15:03:09 Chronic obstructive pulmonary disease 14210986 J44.9 Congestive heart failure 59414133 I50.9 [id number] DIONNE MENDEZ MD [facility] ENT [address] [facility] [place] [address] 02/16/2023 15:25:33 02/16/2023 15:48:20 Dysfunction of bilateral eustachian tubes 4798878098 523600 H69.93 - Patient with issues with ETD while undergoing HBO therapy- Tubes are in place and patent- Return to clinic in 6 months [id number] Debora Mckeon NP [place] [address] [facility] [place] [address] 02/21/2023 14:43:31 02/21/2023 15:40:11 Cough 12069155 R05.9 Acute exac erbation of chronic obstructive pulmonary disease 541034884 J44.1 [id number] Debora Mckeon NP [address] [place] [address] 02/28/2023 14:54:05 02/28/2023 15:32:05 Essential hypertension 86003115 I10 Congestive heart failure 95778127 I50.9 Chronic ob structive pulmonary disease 21124972 J44.9 Hyperlipidemia 91657798 E78.5 Vitamin D deficiency 347 63395 E55.9 Fatigue 48192010 R53.83 [id number] Debora Mckeon NP [place] [address] [address] [facility] [place] [address] 9 03/20/2023 09:09:45 03/20/2023 09:57:27 Congestive heart failure 99236387 I50.9 Polyneuropathy 36522431 G62.9 Chronic ob structive pulmonary disease 10383073 J44.9 Hyperlipidemia 74169747 E78.5 [id number] Debora Mckeon NP [place] [address] [address] [facility] [place] [address] 03/28/2023 09:43:43 03/28/2023 10:28:49 Acute exacerbation of chronic obstructive pulmonary disease 833068248 J44.1 [id number] Debora Mckeon NP [place] [address] [address] [facility] [place] [address] 03/29/2023 14:32:59 03/29/2023 15:16:04 Acute exacerbation of chronic obstructive pulmonary disease 030227340 J44.1 [id number] Debora Mckeon NP [place] [address] [address] [facility] [place] [address] 04/03/2023 14:37:32 04/03/2023 15:25:08 Acute exacerbation of chronic obstructive pulmonary disease 684785421 J44.1 [id number] Debora Mckeon NP [place] [address] [address] [facility] [place] [address] 05/22/2023 09:22:44 05/22/2023 10:23:52 Thyroid nodule 057482011 E04.1 Essential hypertension 81175005 I10 Hyperlipidemia 79291761 E78.5 Vitamin D deficiency 347 46223 E55.9 Fatigue 58436331 R53.83 [id number] Milo Joseph M.D [facility] Neurology [address],[facility] [address] [facility] [place] [address] 05/31/2023 09:50:16 05/31/2023 10:36:11 Bilateral carpal tunnel syndrome 3823756267 6182696 G56.03 Numbness of hand 3684950 04 R20.0 Sensory disorder 5360682 8 R20.8 [id number] Debora Mckeon NP [place] [address] [address] [facility] [place] [address] 06/04/2023 10:53:34 06/04/2023 11:47:37 Congestive heart failure 87592702 I50.9 Benign hypertension 1072 5009 I10 Electrolyte imbalance 10 1289182 E87.8 Mixed hyperlipidemia 267 409795 E78.2 [id number] Debora Mckeon NP [place] [address] [place] [address] 06/20/2023 15:07:14 06/20/2023 15:37:59 Polyneuropathy 64075447 G62.9 Benign hypertension 1072 5009 I10 [id number] Debora Mckeon NP [place] [address] [place] [address] 07/18/2023 08:11:06 07/18/2023 08:45:20 Abscess of skin of right wrist 0185238547 8513884 L02.413 [id number] Debora Mckeon NP [place] [address] [facility] [place] [address] 07/23/2023 16:02:25 07/23/2023 16:22:35 Abscess of skin of right wrist 1312920824 1861021 L02.413 [id number] Debora Mckeon NP [place] [address] [place] [address] 07/30/2023 09:14:47 07/30/2023 09:31:25 Abscess of skin of right wrist 1330956440 9537229 L02.413 [id number] DIONNE MENDEZ MD [facility] ENT [address] [place] [address] 08/15/2023 09:17:05 08/15/2023 09:48:09 Dysfunction of bilateral eustachian tubes 7137581656 212766 H69.93 - Bilateral tympanosto my tubes extruded- Right tympanosto my tube removed from the EAC in office today- Right TM still with perforatio n, would expect this to close on it own now that tube is out- Start flonase to help with ETD- Return to clinic in 6 months [id number] Melanie Brice PA-C [place] [address] [place] [address] 08/24/2023 15:23:33 08/24/2023 16:13:58 Cough 53439666 R05.9 Acute exac erbation of chronic obstructive pulmonary disease 738459969 J44.1 [id number] Viktor Barth MD [place] [address] [place] [address] 08/27/2023 16:11:01 08/27/2023 16:52:44 Pain in throat 584221820 R07.0 Streptococ dany sore throat 34617228 J02.0 [id number] Debora Mckeon NP [place] [address] [place] [address] 08/31/2023 13:06:35 08/31/2023 13:29:05 Multiple joint pain 91964893 M25.50 [id number] Debora Mckeon NP [place] [address] [place] [address] 09/04/2023 15:48:11 09/04/2023 16:35:17 Cough 27643459 R05.9 Acute exac erbation of chronic obstructive pulmonary disease 183868113 J44.1 Streptococ dany sore throat 77169675 J02.0 Congestive heart failure 87502166 I50.9 [id number] Viktor Barth MD [place] [address] [place] [address] 09/10/2023 14:46:50 09/10/2023 15:51:56 Chronic obstructive pulmonary disease 44694997 J44.9 Fatigue 23326038 R53.83 Congestive heart failure 24609813 I50.9 [id number] Debora Mckeon NP [facility] [address] [place] [address] 09/14/2023 13:46:06 09/14/2023 14:25:33 Chronic obstructive pulmonary disease 00767721 J44.9 Acute pharyngitis 392174 003 J02.9 Oral eryth ematous candidiasis 796419629 B37.0 [id number] Viktor Barth MD [place] [address] [place] [address] 09/17/2023 13:07:09 09/17/2023 13:28:39 Acute pharyngitis 325241886 J02.9 Acute exac erbation of chronic obstructive pulmonary disease 683516192 J44.1 Rheumatoid arthritis 698 83315 M06.9 [id number] Viktor Barth MD [address] [address] 09/24/2023 14:22:09 09/24/2023 14:53:10 Acute pharyngitis 311048685 J02.9 Chronic ob structive pulmonary disease 58799853 J44.9 [id number] Brady Alejo MD [facility] [address] [place] [address] 10/01/2023 11:04:40 10/01/2023 11:41:25 Gastroesophageal reflux disease 335658636 K21.9 [id number] Viktor Barth MD [address] [address] 10/08/2023 13:12:22 10/08/2023 14:23:49 Cough 87525602 R05.9 Candidiasis of skin 4988 3006 B37.2 Acute exac erbation of chronic obstructive pulmonary disease 031373288 J44.1 Gastro-eso phageal reflux disease with esophagitis 522641212 K21.00 [id number] Viktor Barth MD [place] [address] [place] [address] 10/15/2023 13:49:08 10/15/2023 14:21:52 Benign hypertension 98530201 I10 Acute exac erbation of chronic obstructive pulmonary disease 222117593 J44.1 [id number] Debora Mckeon NP [place] [address] [place] [address] 10/16/2023 15:00:42 10/16/2023 15:31:00 Acute exacerbation of chronic obstructive pulmonary disease 102822458 J44.1 [id number] Debora Mckeon NP [place] [address] [place] [address] 10/17/2023 14:44:04 10/17/2023 15:34:45 Acute exacerbation of chronic obstructive pulmonary disease 656651520 J44.1 [id number] Debora Mckeon NP [place] [address] [place] [address] 10/24/2023 08:48:35 10/24/2023 09:24:40 Chronic obstructive pulmonary disease 98161412 J44.9 Congestive heart failure 42768969 I50.9 [place] [address]29[address] B37.31 [id number] Brady Alejo MD [place] [address] [facility] [place] [address] 10/29/2023 11:11:13 10/29/2023 11:23:42 Gastroesophageal reflux disease 438036420 K21.9 [id number] Viktor Barth MD [place] [address] [place] [address] 10/29/2023 14:26:13 10/29/2023 14:54:29 Chronic obstructive pulmonary disease 25845848 J44.9 Congestive heart failure 38381723 I50.9 Benign hypertension 1072 5009 I10 [id number] Debora Mckeon NP [place] [address] [place] [address] 12/11/2023 14:58:03 12/11/2023 15:55:11 Cough 91363553 R05.9 Influenza caused by Influenza B virus 27441962 J10.1 Acute exac erbation of chronic obstructive pulmonary disease 719941552 J44.1 [id number] Debora Mckeon NP [place] [address] [place] [address] 12/12/2023 14:48:37 12/12/2023 15:16:07 Acute exacerbation of chronic obstructive pulmonary disease 250778540 J44.1 Influenza caused by Influenza B virus 95030071 J10.1 Congestive heart failure 41290767 I50.9 Benign hypertension 1072 5009 I10 Gastroesop hageal reflux disease 105222401 K21.9 [id number] Debora Mckeon NP [address] [place] [address] 12/21/2023 10:01:56 12/21/2023 11:01:28 Fatigue 17151523 R53.83 Chronic ob structive pulmonary disease 98932519 J44.9 Congestive heart failure 40528313 I50.9 Essential hypertension 74945643 I10 Hyperlipidemia 11575488 E78.5 Vitamin D deficiency 347 72706 E55.9 Blood gluc ose outside reference range 306841551 R73.09 [id number] Brady Alejo MD [place] [address] [facility] [place] [address] 01/28/2024 09:49:07 01/28/2024 10:22:18 Tinnitus 16870822 H93.19 Perforatio n of right tympanic membrane 6542962792 953054 H72.91 Gastroesop hageal reflux disease 799463626 K21.9 Impacted c erumen in right ear 3267181685 081923 H61.21 [id number] Brady Alejo MD [facility] [address] 03/07/2024 09:27:55 03/07/2024 09:47:39 Tinnitus 55155671 H93.19 Perforatio n of right tympanic membrane 4688841840 811801 H72.91 Gastroesop hageal reflux disease 103917757 K21.9 Impacted c erumen in right ear 4814150029 750898 H61.21 Conductive hearing loss 30193816 H90.2 [id number] Debora Mckeon NP [address] [address] 02/29/2024 08:37:20 02/29/2024 09:35:39 Adult health examination 649991157 Z00.00 Chronic ob structive pulmonary disease 36546177 J44.9 Congestive heart failure 86565087 I50.9 Rheumatoid arthritis 698 58094 M06.9 Screening mammography of bilateral breasts 5740767992 51076 Z12.31 Screening for malignant neoplasm of colon 401246691 Z12.11 [id number] JACINDA STOCKTON [facility] [address] [address] 03/07/2024 09:26:08 03/07/2024 09:39:03 Conductive hearing loss of right ear 8808186781 H90.2 [id number] Terry Byrd MD [facility] [address] [place] [address],[facility] [address] [place] [address] 03/21/2024 09:20:32 03/21/2024 10:01:26 Screening for malignant neoplasm of colon 192002259 Z12.11 Age-approp riate for screening, schedule colonoscop y Dysphagia 92569341 R13.1 0 solid food dysphagia schedule EGD for evaluation Regurgitation of food 10 0367823 R19.8 possibly is a reflux related phenomenon , continue PPI therapy, move the patient's proton pump inhibitor to the optimal timing and further recommenda tion will follow [id number] Viktor Barth MD [address] [address] 03/28/2024 09:09:56 03/28/2024 09:50:44 Essential hypertension 29008207 I10 Hyperlipidemia 27229866 E78.5 Vitamin D deficiency 347 32587 E55.9 Folic acid deficiency 19 7454555 E53.8 Fatigue 50811925 R53.83 Chronic ob structive pulmonary disease 22799744 J44.9 Spinal stenosis 04124231 M48.00 [id number] JACINDA STOCKTON ENT[address] [address] 04/23/2024 09:23:14 04/23/2024 09:38:13 Conductive hearing loss of right ear 3098082237 H90.2 [id number] Debora Mckeon NP [place] [address] [place] [address] 06/03/2024 08:59:43 06/03/2024 09:19:59 Benign hypertension 55341500 I10 Gastroesop hageal reflux disease 866487436 K21.9 Chronic ob structive pulmonary disease 34295812 J44.9 Degenerati on of lumbar intervertebral disc 64252402 M51.36 Screening for malignant neoplasm of colon 277982687 Z12.11 [id number] Debora Mckeon NP [address] [place] [address] 07/03/2024 09:05:26 07/03/2024 09:47:55 Hyponatremia 76800028 E87.1 [id number] JACINDA STOCKTON [address] [address] 07/04/2024 10:50:43 07/04/2024 11:16:18 Conductive hearing loss of right ear 5683064324 H90.2 [id number] Debora Mckeon NP [place] [address] [place] [address] 07/07/2024 08:30:33 07/07/2024 08:45:03 Hyponatremia 20646527 E87.1 [id number] Debora Mckeon NP [place] [address] [place] [address] 07/17/2024 09:42:49 07/17/2024 10:14:59 Spinal stenosis 62087756 M48.00 Peripheral edema 3209232 00 R60.9 Constipation 72070980 K5 9.00 [id number] Debora Mckeon NP [place] [address] [place] [address] 07/21/2024 09:08:46 07/21/2024 10:11:10 Essential hypertension 64456300 I10 Peripheral edema 3643102 00 R60.9 Constipation 74279860 K5 9.00 Degenerati on of lumbar intervertebral disc 51486891 M51.36 Near syncope 113206774 R 55 Recurrent falls 36483282 2 R29.6 [id number] Debora Mckeon NP [address] [place] [address] 08/01/2024 08:13:51 08/01/2024 08:43:04 Dysphagia 19212521 R13.10 [id number] Terry Byrd MD [facility] [address] [place] [address] 08/29/2024 08:41:38 08/29/2024 09:24:37 Screening for malignant neoplasm of colon 387687467 Z12.11 Age-approp riate for screening, schedule colonoscop y Dysphagia 65049658 R13.1 0 solid food dysphagia schedule EGD for evaluation Gastroesop hageal reflux disease without esophagitis 121975473 K21.9 Ongoing reflux symptomato logy, continue current PPI therapy assess endoscopic picture at EGD. Tobacco de pendence syndrome 70283850 F17.223 [id number] MD [place] [address] [place] [address] 09/09/2024 15:46:22 09/09/2024 16:33:26 Thyroid nodule 148228354 E04.1 Chronic ob structive pulmonary disease 42476233 J44.9 [id number] Debora Mckeon NP [place] [address] [place] [address] 09/16/2024 13:49:49 09/16/2024 14:50:31 Congestion of nasal sinus 49575447 R09.81 Sore throat 104895876 J0 2.9 Benign hypertension 1072 5009 I10 Gastroesop hageal reflux disease 626217941 K21.9 Acute exac erbation of chronic obstructive pulmonary disease 800224690 J44.1 Osteoarthritis 014918862 M19.90 Hyperlipidemia 62661400 E78.5 [id number] Debora Mckeon NP [place] [address] 09/17/2024 13:48:59 09/17/2024 14:16:21 Acute exacerbation of chronic obstructive pulmonary disease 796465726 J44.1 [id number] Debora Mckeon NP [address] [address] 09/18/2024 13:49:51 09/18/2024 14:20:50 Acute exacerbation of chronic obstructive pulmonary disease 587266898 J44.1 Acute pharyngitis 864124 003 J02.9 [id number] Viktor Barth MD [address] [address] 09/22/2024 10:46:28 09/22/2024 11:09:11 Acute exacerbation of chronic obstructive pulmonary disease 173781368 J44.1 Candidiasis of mouth 797 69595 B37.0 [id number] Debora Mckeon NP [address] [address] 09/26/2024 10:20:06 09/26/2024 10:48:32 Acute exacerbation of chronic obstructive pulmonary disease 976968060 J44.1 Seasonal a llergic rhinitis 194730447 J30.2 [id number] Debora Mckeon NP [address] [address] 10/03/2024 10:08:10 10/03/2024 10:36:06 Acute pharyngitis 672823122 J02.9 Chronic ob structive pulmonary disease 31268175 J44.9 [id number] Debora Mckeon NP [address] [address] 10/17/2024 10:11:55 10/17/2024 10:34:52 Chronic obstructive pulmonary disease 00354447 J44.9 Acute pharyngitis 474547 003 J02.9 [id number] ANY SAUCEDO [address] [address] 10/31/2024 15:50:54 10/31/2024 16:41:08 Right lower zone pneumonia 443227770 J18.1 Chronic ob structive pulmonary disease 49053566 J44.9 Congestive heart failure 62652238 I50.9 Essential hypertension 08911425 I10 Cough 74630583 R05.9 [id number] Debora Mckeon NP [address] [address] 11/17/2024 11:29:27 11/18/2024 12:50:07 Chronic obstructive pulmonary disease 26176118 J44.9 Congestive heart failure 83362896 I50.9 [id number] Gabriela Robles MD [facility] [facility] [place] [place] [address] 12/03/2024 14:44:56 12/03/2024 15:28:14 Candidiasis of mouth 21468796 B37.0 This is most likely from her oral steroid use. She does report that she rinses her mouth out after using her inhaler every single day we will start nystatin swish and swallow Sore throat 500768664 J0 2.9 Likely related to her steroid use. Otorrhea of left ear 413 1684895 257987 H92.12 I am concerned about a possible canal cholesteat nate on her left ear Vasomotor rhinitis 77062 03 J30.0 [id number] Viktor Barth MD [address] [address] 12/02/2024 15:51:18 12/03/2024 09:42:29 Benign hypertension 19383409 I10 Acute bronchitis 4838326 2 J20.9 Chronic ob structive pulmonary disease 75780488 J44.9 Congestive heart failure 09419294 I50.9 [id number] Terry Byrd MD [facility] [address] [facility] [place],[facility] 203 [place] [address] 12/04/2024 12:48:04 12/04/2024 13:36:25 Screening for malignant neoplasm of colon 190986869 Z12.11 Age-approp riate for screening, schedule colonoscop y Noncomplia nt with recommende d colonoscop y in March of 2024 and August of 2024, reschedule at this time however patient was told that if she continues to be noncomplia nt with follow-up we may need to discharge her from the practice Dysphagia 52305428 R13.1 0 solid food dysphagia scheduled for an EGD in March of 2024 and August of 2024 symptoms persists, will reschedule EGD for evaluation . the patient was counseled that recurrent / persistent noncomplia nce may lead to our need to terminate her from the practice so the importance of follow-up is very critical Gastroesop hageal reflux disease without esophagitis 108651929 K21.9 Ongoing reflux symptomato logy, continue current PPI therapy assess endoscopic picture at EGD. Tobacco de pendence syndrome 07207915 F17.432 [id number] Debora Mckeon NP [address] [address] 12/09/2024 15:09:00 12/09/2024 15:51:12 Chronic obstructive pulmonary disease 23708043 J44.9 Essential hypertension 06143398 I10 Hyperlipidemia 18489258 E78.5 Vitamin D deficiency 347 04941 E55.9 Fatigue 04505145 R53.83 Folic acid deficiency 19 4305206 E53.8 [id number] Debora Mckeon NP [address] [place] [address] 12/12/2024 13:16:46 12/12/2024 13:52:32 Chronic obstructive pulmonary disease 40313024 J44.9 Anemia 283505798 D64.9 Vitamin D deficiency 347 17929 E55.9 [id number] Gabriela Robles MD [facility] [facility] [place] [address] 01/14/2025 13:51:55 01/14/2025 14:46:51 Otorrhea of left ear 9578130095 200785 H92.12 Ear drainage has resolved. She does not have any evidence of otorrhea at this time. Physical deconditioning 4739297186 9102 R68.89 She needs aggressive physical therapy for recovery. [id number] Viktor Barth MD [address] [address] 01/27/2025 13:59:50 01/27/2025 15:54:53 Hypoxemia 972331459 R09.02 History of fall 44051471 9 Z91.81 skin tear cleansed and redressed Amnesia 97969184 R41.3 Open wound of left upper limb 4573280405 7106 S41.112A Dyspnea 838942518 R06.00 Chronic ur inary tract infection 626589702 N39.0 Pneumonia 085966648 J18. 9 Acute exac erbation of chronic obstructive pulmonary disease 192990772 J44.1 [id number] Debora Mckeon NP [address] [address] 01/30/2025 13:57:21 01/30/2025 14:32:13 Acute exacerbation of chronic obstructive pulmonary disease 547125937 J44.1 Retention of urine 18344 4002 R33.9 Open wound of left upper limb 3116548056 7106 S41.112A Adult fail ure to thrive syndrome 261143780 R62.7 Congestive heart failure 73621822 I50.9 Health Concerns Section Related Observation LastModified by Organization Detai ls LastModified Time None Recorded Concern Status LastModified by Organization Details LastModified Time None Recorded Advance Directives Directive N: Payers Encounter Date Sequence Insurance Name Policy Number Policy Umanzor Covered Member ID Umanzor Member ID Guarantor Name 12/09/2024 1 [employer] (MEDICARE REPLACEMENT/ ADVANTAGE - HMO) Marisa Kruse [id number] Marisa Kruse 12/12/2024 1 [employer] (MEDICARE REPLACEMENT/ ADVANTAGE - HMO) Marisa Kruse [id number] Marisa Kruse 01/14/2025 1 [employer] (MEDICARE REPLACEMENT/ ADVANTAGE - HMO) Marisa Kruse [id number] Marisa Kruse 01/27/2025 1 [employer] (MEDICARE REPLACEMENT/ ADVANTAGE - HMO) Marisa Kruse [id number] Marisa Kruse 01/30/2025 1 [employer] (MEDICARE REPLACEMENT/ ADVANTAGE - HMO) Marisa Kruse [id number] Marisa Kruse Notes Date Note Type Note Provider Name and Address Organization Details Recorded Time 12/09/2024 text/html 64-year-old ralph ent presents today for recheck on COPD exacerbation and bronchitis. Patient states she is feeling the same after injections and Z-Danis. She continues to do nebulizer at home as needed and has oxygen as necessary at home but does wear it at night. She does thankfully have an appointment with pulmonology again tomorrow as well. She is due for lab work. patient has a history of folic acid deficiency, vitamin-D deficiency, hypertension, and hyperlipidemia. Debora Mckeon NP [address] [facility],[address], [place], [address], [facility] & [place] 12/10/2024 11:07:28 12/12/2024 text/html 64-year-old ralph ent presents today lab results at my request. Debora Mckeon NP [address] [facility],[address], [place], [address], [facility] & [place] 12/12/2024 14:01:12 01/14/2025 text/html 12/03/24 - 64 yea r old female who has several ENT concerns. She has a sore throat which has been Present for many years intermittently. She has had an EGD by Dr. Byrd in [place]. She has also seen [address] Alejo in [place] and Dr. Mendez in [place]. She complains that her nose constantly drips and that her tongue is sore. She does not like the taste of water and only drinks Powerade. She is a relatively poor historian. she does not recall who her equipment coordinator is but I did look through her records and it appears that she sees Beatriz Evans for hearing aids bilaterally. 01/14/25-Patient is her for 6 week follow up,Patient states her tongue is better and her ear is no longer draining or a concern. Patient is not using the nasal spray. She has been very criticall ill since her last visit here and was in [facility] for about a month with CHF and pneumonia. She is very weak and decondition but she had not had any ear drainage. Gabriela Robles MD [id number] [facility], [place], [address], [facility] [place] & [place] 01/16/2025 14:41:02 01/27/2025 text/html patient presents the office today to follow-up after hospital discharge. She was admitted for pneumonia. She spent several days in the hospital. Discharge to home. She has oxygen but wearing the oxygen upon arrival her O2 sat was 85%. She is pushing around a large oxygen tank. She is wheelchair-bound. Recently she fell at a local store. She has a skin tear on her left upper extremity. It needs to be readdressed at today's office visit. The skin tear measures almost 4 in in length and 2 in in width. She does have minimal bleeding present. She is experiencing memory loss issues. Daughter is with her today and states that this has been worse since she was in the hospital. She is noticed that it has gotten worse with her for oxygen level. She does have a Ramos catheter in place draining to a bag. It was left in place because of a persistent UTI. She has an appointment scheduled with Urology for later on next week. She does have some urine in the bag. Yellow in color. It is hazy. Currently she has not taking any antibiotics. She is receiving home health as well as home PT and OT. She has a cardiac history. She has a history of COPD. She has history of gastroesophageal reflux disease. She also has hypokalemia and hyperlipidemia. These are all being treated ANY SAUCEDO [address] [facility],[address], [place], [address], [place] - [facility] & [place] 01/28/2025 08:00:15 01/30/2025 text/html 64-year-old ralph ent presents today with daughter for a follow-up after hospital discharge. Patient was admitted in [facility] for 3 weeks and then came home for a couple of days and then readmitted in [facility] in [place] for another week with pneumonia, COPD exacerbation, UTI, and failure to thrive. Patient is on 2 sets of antibiotics for Omnicef and Zithromax. She has urinary retention and has a catheter in place. She has an upcoming appointment with Dr. Mejia, urology in [place] next . Patient states her cough and congestion is improved. She is following with home health for physical and occupational therapies as well. She does have a skin tear on her left upper extremity that we are following as well as home health redressing 2-3 times weekly. Her and her daughter state it is healing slowly. Lastly, patient was recommended upon discharge [facility] to see Cardiology as well as pulmonology. She has followed with Dr. Angel Chow in the past but she has never seen pulmonology. She is currently living with her daughter who is helping with her care at this time. Debora Mckeon NP [address] [facility],[address], [place], [address], [place] - [facility] & [place] 01/30/2025 15:08:04 OBGyn Episode No OBEpisode recorded.
--- OUTSIDE RECORDS SUMMARY | 2025-03-04 14:46 | XMS_ITS | Data Portability ---
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 She completely emptied today. She will follow-up in 2 weeks with a PVR or sooner should she have issues. Not available 10/08/2018 11:37:34 10/14/2018 10/14/2018 Mrs. Kruse is a 58-year-old female status post L2 to iliac fusion. Her x-rays today look great. I gave her printed copy. I encouraged her to walk is much as possible. She is interested in returning to work, but I told her with such a significant lumbar intervention she really needs to stay off work another 2 months. We will see her back in follow-up at that time with repeat x-rays of the lumbar spine. She can expect to be released with no restrictions at that time. Not available 10/14/2018 15:30:40 10/28/2018 10/28/2018 1. Patient to continue her diclofenac as needed for pain as previously prescribed. 2. No lifting over 5 pounds with her right arm. 3. Patient to have an orthopedics evaluation of her right shoulder pain as she is already on diclofenac and gabapentin. 4. Patient to follow up here as needed. [email or web address] Not available 10/28/2018 17:12:11 10/29/2018 10/29/2018 History of urinary retention after spinal fusion. She is voiding well at this time. She does have some increasing nocturia. We discussed medical therapy for this but she declines at this time. She will follow-up as needed. Not available 10/29/2018 10:26:54 12/16/2018 12/16/2018 Mrs. Vick is 58-year-old female status post L2 to iliac fusion. Her x-rays today look great. I gave them a printed copy. I would be comfortable with her returning to work with a 10 pound lifting restriction over the next 3 months. Ultimately, she may need to consider disability if her job cannot accommodate her back issues. I do think that excessive bending, lifting and twisting could risk adjacent level issues at L1-2. At this point, she will follow up with me on an as needed basis. She understands she can call at any time with questions or concerns. Not available 12/16/2018 15:17:27 Plan of Treatment Reminders Order Date Submit Date Provider Last Modified By Organization Details Last Modified Time Details Appointments None recorded. Lab urinalysis, dipstick, auto 2017 018 [email or web address] Not available 8 10:27:08 Referral orthopedic referral 2017 018 radha [address] [facility], [address] [place] [address], [place], [address], 9 15:51:45 Procedures None recorded. Surgeries None recorded. Imaging None recorded. Medication Orders None recorded. Patient TargetsNo targets recorded. Patient Instructions Encounter Date Encounter Id Patient Instructions Last Modified By Organization Details Last Modified Time 10/29/2018 [id number] urinary retention: care instructions [email or web address] Not available 10/29/2018 10:27:08 Reason for Referral Orthopedic Referral for Pain of right shoulder joint Referring Physician: Ingrid Tong, Internal Medicine, Encounter Date: 10/28/2018 Results Created Date Observation Date Name Description Value Unit Range Abnormal Flag Note LastModifiedBy Organization Detail LastModifiedTime 10/29/20 18 10/29/2018 urina lysis , dipst ick, auto Unknown Analyte Yellow Not Available [facility] [address] [place], [address], 10/29/2018 10:08:02 10/29/20 18 10/29/2018 urina lysis , dipst ick, auto Unknown Analyte Clear Not Available [facility] [address] [place], [address], 10/29/2018 10:08:02 10/29/20 18 10/29/2018 urina lysis , dipst ick, auto Unknown Analyte 1.015 Not Available [facility] [address] [place], [address], 10/29/2018 10:08:02 10/29/20 18 10/29/2018 urina lysis , dipst ick, auto Unknown Analyte 5.0 Not Available [facility] [address] [place] [address], [address], 10/29/2018 10:08:02 10/29/20 18 10/29/2018 urina lysis , dipst ick, auto Unknown Analyte Negati ve Not Available [facility] [address] [place], [address], 10/29/2018 10:08:02 10/29/20 18 10/29/2018 urina lysis , dipst ick, auto Unknown Analyte Negati ve Not Available [facility] [address] [place], [address], 10/29/2018 10:08:02 10/29/20 18 10/29/2018 urina lysis , dipst ick, auto Unknown Analyte Negtiv e Not Available [facility] [address] [place], [address], 10/29/2018 10:08:02 10/29/20 18 10/29/2018 urina lysis , dipst ick, auto Unknown Analyte Normal Not Available [facility] [address] [place], [address], 10/29/2018 10:08:02 10/29/20 18 10/29/2018 urina lysis , dipst ick, auto Unknown Analyte Negati ve Not Available [facility] [address], [address], 10/29/2018 10:08:02 10/29/20 18 10/29/2018 urina lysis , dipst ick, auto Unknown Analyte Normal Not Available [facility] [address], [address], 10/29/2018 10:08:02 10/29/20 18 10/29/2018 urina lysis , dipst ick, auto Unknown Analyte Negati ve Not Available [facility] [address], [address], 10/29/2018 10:08:02 10/29/20 18 10/29/2018 urina lysis , dipst ick, auto Unknown Analyte Negati ve Not Available [facility] [address], [address], 10/29/2018 10:08:02 10/29/20 18 10/29/2018 urina lysis , dipst ick, auto Unknown Analyte Clean Catch Not Available [facility] [address], [address], 10/29/2018 10:08:02 10/29/20 18 10/29/2018 urina lysis , dipst ick, auto Unknown Analyte Automa willie Not Available [facility] [address], [address], 10/29/2018 10:08:02 10/14/20 18 10/14/2018 XR, lumbo sacra l spine , 2 or [address] [address] Patien t Name: MARISA ramirez : 959 Megan ramirez 59 Orderi ng Provid er: MATTHE W KINA EXAM DATE: 2017 EXAM: XR LUMBAR AP/LAT CLINIC AL INFORM ATION: Postop erativ e. IMAGES PROVID ED: AP, latera l, and coned- down views of the lumbar spine. COMPAR FABI: None. FINDIN GS AND IMPRES KIMBERLY: Spinal fusion is noted at L1-S2 level with pedicu lar screws and connec ting rods. Surgic al hardwa re is satisf actori ly placed . No eviden ce of loosen ing or infect ion is seen. Other levels are normal . Interp reted By: Hoang Hirsch MD Electr onical ly Signed By: Hoang Hirsch MD on 018 3:[email or web address] [facility] [address], [address], 10/14/2018 17:23:01 12/16/19 19 12/16/2018 XR, lumbo sacra l spine , 2 or [address] [address] Patien t Name: MARISA ramirez : 959 Patien t 59 Orderi ng Provid er: OBDULIO Lange KINA EXAM DATE: 2018 EXAM: XR LUMBAR AP/LAT CLINIC AL INFORM ATION: Postop erativ e. IMAGES PROVID ED: AP, latera l, and coned- down views of the lumbar spine. COMPAR FABI: None. FINDIN GS AND IMPRES KIMBERLY: Spinal fusion is noted at L2-S2 level with pedicu lar screws and connec ting rods. Surgic al hardwa re is satisf actori ly placed . No eviden ce of loosen ing or infect ion is seen. Other levels are normal . Interp reted By: Hoang Hirsch MD Electr onical ly Signed By: Hoang Hirsch MD on 12/16/19 19 3:10 PM [email or web address] [facility] [address] [place], [address], 12/19/2018 18:34:51 02/11/27/2023 XR, sacro iliac joint (s) No observ ation record ed. [email or web address] Not Available 01/10 11:40:58 05/07/20 24 05/07/2024 CT, lumba r spine , w/o contr ast No observ ation record ed. [email or web address] [facility] [address], [place], [address], 05/21/2024 08:49:00 05/07/20 24 05/07/2024 MRI, lumba r spine , w/wo contr ast No observ ation record ed. [email or web address] [facility] [address], [place], [address], 06/04/2024 13:52:14 Result Notes None recorded. Problems No Known Problems Procedures Surgical History Date Name Laterality Status Provider Name and Address Organization Details Recorded Time 8 Post Void Residual; Ultrasound completed [facility] 10/29/2018 10:07:58 8 Uroflowmetry; Complex completed [facility] 10/08/2018 11:26:56 8 Back Surgery completed Tamika Nelson [facility] 10/28/2018 14:13:30 Imaging Results Imaging Date Name Status [facility] Details LastModified Time 10/14/2018 XR, lumbosacral spine, 2 or 3 view completed [address], [address], 10/14/2018 17:23:01 12/16/2018 XR, lumbosacral spine, 2 or 3 view completed [address] [facility], [address], 12/19/2018 18:34:51 11/27/2023 XR, sacroiliac joint(s) completed [email or web address] Information not available 01/11/2024 11:40:58 05/07/2024 CT, lumbar spine, w/o contrast completed [email or web address] [facility] [address], [place], [address], 05/21/2024 08:49:00 05/07/2024 MRI, lumbar spine, w/wo contrast completed [email or web address] [facility] [address], [place], [address], 06/04/2024 13:52:14 Procedure Notes None recorded. Medical Equipment None Reported. Allergies No known drug allergies Medications Name Sig Start Date Stop Date Status Note LastModified by Organization Details LastModified Time cyclobenzap rine 10 mg tablet 10/28 completed Not Available Not Available Not Available Percocet 7.5 mg-325 mg tablet Take 1 1 by oral route. 10/28 completed Not Available Not Available Not Available bethanechol chloride 10 mg tablet 10/28 completed Not Available Not Available Not Available Levaquin 750 mg tablet 09/21 completed Not Available Not Available Not Available prednisone 20 mg tablet 10/28 completed Not Available Not Available Not Available Zantac 150 mg tablet Take 1 tablet twice a day by oral route. active Not Available Not Available No t Available prednisone 10 mg tablets in a dose pack 10/28 completed Not Available Not Available Not Available DuoNeb 0.5 mg-3 mg(2.5 mg base)/3 mL solution for nebulizatio n Inhale 3 mL by inhalatio n route. 10/28 completed Not Available Not Available Not Available cyanocobala min (vit B-12) 1,000 mcg/mL injection solution active Not Available Not Available Not Available nicotine 21 mg/24 hr daily transdermal patch Apply 1 1 by transderm . route. 10/28 completed Not Available Not Available Not Available gabapentin 300 mg capsule active Not Available Not Available Not Available diclofenac sodium 75 mg tablet,sade yed release active Not Available Not Available Not Available prednisone 5 mg tablets in a dose pack 10/28 completed Not Available Not Available Not Available polyethylen e glycol 3350 17 gram/dose oral powder 10/28 completed Not Available Not Available Not Available Vitamin D2 1,250 mcg (50,000 unit) capsule 10/28 completed Not Available Not Available Not Available piroxicam 20 mg capsule 10/28 completed Not Available Not Available Not Available amoxicillin 875 mg-potassiu m clavulanate 125 mg tablet 10/28 completed Not Available Not Available Not Available duloxetine 20 mg capsule,del ayed release 10/28 completed Not Available Not Available Not Available tizanidine 2 mg capsule 10/28 completed Not Available Not Available Not Available Linzess 145 mcg capsule active Not Available Not Available Not Available Vitals Date Recorded Body height Body mass index (BMI) Body weight Provider Name and Address Organization Details Last Updated DateTime 10/08/2018 167.64 cm 17.9 kg/m2 90487.75 g Adrienne [facility] 10/08/2018 11:15:49 Date Recorded Body height Body mass index (BMI) Body weight Systolic blood pressure Diastolic blood pressure Provider Name and Address Organization Details Last Updated DateTime 10/14/2018 167.64 cm 17.9 kg/m2 52080.75 g 122 mm[Hg] 70 mm[Hg] Rosanna Purcell [facility] 8 14:49:05 Date Recorded Body height Body mass index (BMI) Body weight Body temperature Heart rate Respiratory rate Oxygen saturation Oxygen saturation in Arterial blood by Pulse oximetry Systolic blood pressure Diastolic blood pressure Provider Name and Address Organization Details Last Updated DateTime 8 167.64 cm 17.5 kg/m2 48749.3 8 g 98.9 [degF] 90 /min 16 /min 99 % 99 % 98 mm[Hg] 60 mm[Hg] Tamika Nelson [facility] 8 14:08:41 Date Recorded Body height Body mass index (BMI) Body weight Provider Name and Address Organization Details Last Updated DateTime 10/29/2018 167.64 cm 17.4 kg/m2 43631.98 g Adrienne [facility] 10/29/2018 10:06:43 Date Recorded Body height Body mass index (BMI) Body weight Systolic blood pressure Diastolic blood pressure Provider Name and Address Organization Details Last Updated DateTime 12/16/2018 167.64 cm 17.4 kg/m2 63687.98 g 128 mm[Hg] 82 mm[Hg] Rosanna Purcell [facility] 9 15:06:04 Social History Question Answer Notes LastModified by Organizat ion Details LastModified Time Tobacco Smoking Status Current Every Day Smoker Ashley Nayeli jenkins, [facility] 06/19/2018 13:28:19 What Is Your Level Of Alcohol Consumption? None [email or web address] Information not available 10/28/2018 What Is Your Level Of Caffeine Consumption? Moderate [email or web address] Information not available 10/28/2018 How Much Tobacco Do You Chew? None [email or web address] Information not available 10/28/2018 Are You Currently Employed? Yes [email or web address] Information not available 10/28/2018 What Type Of Diet Are You Following? 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 Yes [email or web address] Information not available 10/28/2018 Hard Of Hearing Or Deaf In One Or Both Ears? No [email or web address] Information not available 10/28/2018 Legally Blind In One Or Both Eyes? No [email or web address] Information not available 10/28/2018 Live Alone Or With Others? With Others [email or web address] Information not available 10/28/2018 What Was The Date Of Your Most Recent Tobacco Screening? 12/16/2018 8 Information not available 12/30/2019 How Many Children Do You Have? 1 [email or web address] Information not available 10/28/2018 Performs Monthly Self-breast Exam? Yes Information not available 10/28/2018 Seat Belts Used Routinely Yes [email or web address] Information not available 10/28/2018 At What Age Did You Start Smoking Tobacco? 28 [email or web address] Information not available 10/28/2018 Are You Passively Exposed To Smoke? No Information not available 10/28/2018 How Much Tobacco Do You Smoke? 1 PPD Information not available 06/19/2018 General Stress Level Medium [email or web address] Information not available 10/28/2018 How Many Years Have You Smoked Tobacco? 35 Information not available 06/19/2018 Sex: Unknown Functional Status Question Answer Note LastModified by Organizat ion Details LastModified Time Are you able to care for yourself? Yes Information not available 10/28/2018 What is your exercise level? Occasional [email or web address] Information not available 10/28/2018 Mental Status None recorded. Family History Relationship Description Onset Age of this Age Resolved Age Notes LastModified by Organization Details LastModified Time Mother History of malignant neoplasm of brain paola Not available 14:13:54 Mother Hypertensive disorder paola Not available 14:14:08 Medical History Condition Response Coronary Artery Disease N Gout N Atrial Fibrillation N Kidney Stones N Hyperthyroidism N Depression N COPD N Hypothyroidism N Difficulty Swallowing N Anxiety Disorder N Meniere's disease N Obesity N Arthritis Y Mental Disorder N Cancer N Stroke N High Cholesterol N Liver Disease N Fibromyalgia N Kidney Disease N Parkinson's Disease N Alzheimer's N Anemia N MRSA exposure N Diabetes N Tuberculosis N AIDS/HIV N Congestive Heart Failure (CHF) N Diverticulitis N Asthma N Reflux/GERD N Heart Disease N Pulmonary Embolism N Chronic Ear Infections N Hypertension N Osteoporosis N Gynecological HistoryNo gynecological history recorded. Obstetrics History GPAL:G 0 P 0 0 0 0 Past Encounters Encounter ID Performer Location Encounter Start Date Encounter Closed Date Diagnosis/Indication Diagnosis SNOMED-CT Code Diagnosis ICD10 Code Diagnosis Note [id number] JANELLE LYONS JR, [facility] [address] [place] [address] 06/19/2018 13:12:16 06/21/2018 13:03:03 Spinal stenosis of lumbar region 44313934 M48.062 Mrs. Kruse is a 58 year old lady who presents with low back pain and leg pain, numbness, and tingling. Her symptoms are consistent with neurogenic claudicati on. I have personally reviewed her MRI lumbar spine without contrast which shows multilevel degenerati ve changes, with canal stenosis, worse at L2/3, L3/4, and L4/5. She has diffuse facet arthropath y with signal change within the facets. Her neurogenic claudicati on is a result of this stenosis, however would like to exhaust conservati ve management before considerin g surgery. At this time, I will send her for lumbar physical therapy and see her back in one month with flexion/ex tension films of her lumbar spine to evaluate for instabilit y and help with surgical planning. During this visit, I counseled her on the importance of smoking cessation. [id number] DARREL CASTANON MD NEUROSURG [facility] [address] [place] [address] 08/08/2018 08:51:24 08/12/2018 14:15:31 Spinal stenosis of lumbar region [id number] M48.203 [id number] CLAUDIO FRANK MD UROLOGY [facility] [address] [place] [address] 10/08/2018 10:24:36 10/08/2018 12:58:56 Postoperative retention of urine [id number] R33.8 [id number] DARREL CASTANON [facility] [address] [place] [address] 10/14/2018 14:00:16 10/15/2018 09:28:09 Postoperative care [id number] Z48.89 [id number] INGRID TONG MD INTERNAL MEDICINE [facility] CL[facility] [address],[facility] [place] [address] 10/28/2018 13:36:53 10/28/2018 14:28:59 Pain of right shoulder joint [id number] M25.511 On 10/28/18, patient reported right shoulder pain after lifting and work on 08/22/18. [id number] CLAUDIO FRANK MD UROLOGY [facility] [address] [place] [address] 10/29/2018 09:55:11 10/30/2018 07:14:57 Retention of urine 175330059 R33.9 Bladder mu scle dysfunction - overactive [id number] N32.81 [id number] DARREL CASTANON MD NEUROSURG [facility] [address] [place] [address] 12/16/2018 13:34:30 12/16/2018 15:43:34 Postoperative care [id number] Z48.89 Health Concerns Section Related Observation LastModified by Organization Detai ls LastModified Time None Recorded Concern Status LastModified by Organization Details LastModified Time None Recorded Advance Directives Directive None Recorded Payers Encounter Date Sequence Insurance Name Policy Number Policy Umanzor Covered Member ID Umanzor Member ID Guarantor Name 10/08/2018 [place] [id number] Marisa Kruse [id number] Marisa Kruse 10/14/2018 1 [place] [id number] Marisa Kruse [id number] Marisa Kruse 10/28/2018 [employer] Marisa Kruse 10/29/2018 1 [place] [id number] Marisa Kruse [id number] Marisa Kruse 12/16/2018 1 [place] [id number] Marisa Kruse [id number] Marisa Kruse Notes Date Note Type Note Provider Name and Address Organization Details Recorded Time 10/08/2018 text/html Mrs. Kruse returns today for a voiding trial. She was evaluated in the hospital for urinary retention after spinal surgery. She reports she has done well with the catheter. No bowel issues. CLAUDIO FRANK MD [address] [place] [address], [phone], [facility] 10/08/2018 11:38:38 10/14/2018 text/html Mrs. Kruse is a 58-year-old female status post L2 to iliac fusion. She had urinary retention postoperatively, requiring 2 weeks of catheterization. This has resolved. She is doing very well with good relief of pain. She has been using her brace and bone stimulator as directed. DARREL CASTANON MD [address] [place] [address], [phone], [facility] 10/14/2018 15:30:54 10/28/2018 text/html Patient is here for a workers compensation evaluation. She states that on 08/22 she was lifting [employer] and turned around and her right shoulder and elbow popped. She has experienced pain ever since. Patient presents today complaining of right shoulder pain. Patient reports the onset of right shoulder pain after lifting and work on 08/22/18. Patient is already on diclofenac as well as gabapentin. INGRID TONG MD [address] [place] [address], [phone], [facility] 10/28/2018 17:14:29 10/29/2018 text/html Mrs. Kruse returns today for follow-up. She developed urinary retention after a spinal fusion. She reports that her voiding is back to baseline with the exception of some mild increase in nocturia. She has good sensation. No sensation of incomplete emptying. CLAUDIO FRANK MD [address] [place] [address], [phone], [facility] 10/29/2018 10:27:27 12/16/2018 text/html Mrs. Marisa arthur is here for her second follow-up after an L2 to iliac fusion performed on September 10, 2018. She had some urinary issues postoperatively which have resolved. She underwent x-rays prior to this visit. DARREL CASTANON MD [address] [place] [address], [phone], [facility] 12/16/2018 15:34:50 OBGyn Episode No OBEpisode recorded.
--- OUTSIDE RECORDS SUMMARY | 2025-03-04 14:47 | XMS_ITS | Continuity of Care Document ---
Author Organization [place] - [place] [facility] Address [address] [place] [address] Care Team Providers Care Development Intern Name Role Phone LEONEL MCKEON Primary Care Provider LEONEL MCKEON Referring Provider [phone] Assessment No assessment recorded. Plan of Treatment Reminders Order Date Submit Date Provider Last Modified By Organization Details Last Modified Time Details Appointments Establish ed Visit 30 min 2024 10:30A M Leonel Mckeon NP Not available Not available Not available OV NEW 30 2024 02:00P M Wilver Martin M.D Not available Not available Not available Lab urinalysi s, dipstick 2024 025 [email or web address] 0 [facility], [address] [place] [address], [place], [address], 01/27/2025 15:12:03 Referral None recorded. Procedures nebulizer treatment (PROC) - albuterol nebulizer treatment 2024 025 [email or web address] Not available 02/03/2025 07:04:57 Surgeries None recorded. Imaging None recorded. Medication Orders Zithromax Z-Danis 250 mg tablet 2024 025 [facility], [address], [place], [address], 01/27/2025 15:14:59 cefdinir 300 mg capsule 2024 025 [facility], [address] [facility], [place], [address], 01/27/2025 15:14:57 prednison e 20 mg tablet 2024 025 [facility], [address], [place], [address], 01/27/2025 15:14:59 ceftriaxo ne 1 gram solution for injection [address] [facility], [address] [facility], [place], [address], 01/30/2025 14:01:15 dexametha sone sodium phosphate 4 mg/mL injection solution [address] [facility], [address] [facility], [place], [address], 01/30/2025 14:01:17 Patient TargetsNo targets recorded. Patient InstructionsNo instructions recorded. Reason for Referral None Reported. Results Created Date Observation Date Name Description Value Unit Range Abnormal Flag Note LastModifiedBy Organization Detail LastModifiedTime 01/28/2001/27/2025 urina lysis , dipst ick Leukocytes (reference range) small Not Available [address], [address], 01/27/2025 14:58:23 01/28/2001/27/2025 urina lysis , dipst ick Nitrite (reference range:) negati ve Not Available [address], [address], 01/27/2025 14:58:23 01/28/2001/27/2025 urina lysis , dipst ick Urobilinogen (reference range) 0.2 Not Available [address], [address], 01/27/2025 14:58:23 01/28/20 25 01/27/2025 urina lysis , dipst ick Protein (reference range) negati ve Not Available [address], [address], 01/27/2025 14:58:23 01/28/20 25 01/27/2025 urina lysis , dipst ick pH (reference range 5-8.5) 6.5 Not Available [address], [address], 01/27/2025 14:58:23 01/28/20 25 01/27/2025 urina lysis , dipst ick Blood (reference range:) small Not Available [address], [address], 01/27/2025 14:58:23 01/28/20 25 01/27/2025 urina lysis , dipst ick Specific [place] (reference range) 1.010 Not Available [address], [address], 01/27/2025 14:58:23 01/28/20 25 01/27/2025 urina lysis , dipst ick Ketone (reference range) negati ve Not Available [address], [address], 01/27/2025 14:58:23 01/28/20 25 01/27/2025 urina lysis , dipst ick Bilirubin (reference range) negati ve Not Available [address], [address], 01/27/2025 14:58:23 01/28/20 25 01/27/2025 urina lysis , dipst ick Glucose (reference range) negati ve Not Available [address], [address], 01/27/2025 14:58:23 01/28/20 25 01/27/2025 urina lysis , dipst ick Color (reference range: yellow-brown ) Yellow Not Available [address], [address], 01/27/2025 14:58:23 01/01/20 25 01/01/2025 XR, chest No observ ation record ed. [email or web address] Not Available 2024 13:55:19 01/06/20 25 01/06/2025 US, doppl er echoc ardio gram No observ ation record ed. Not Available 2024 13:22:36 Result Notes None recorded. Problems Name Problem SNOMED Code Status Onset Date Resolution Date Notes Provider Name and Address Organization Details Recorded Time Congestion of nasal sinus 94366298 Active 2023 JUAN Hernandez - [facility]NT [facility] & [place] 4 14:05:24 Sore throat 816220081 Active 2023 JUAN Hernandez LPNT [facility] & [place] 4 14:05:53 Gastroesoph ageal reflux disease 818971282 Active 2023 Leonel Mckeon NP [address] [facility],[address], [place], [address], [place] JUAN - [facility] - [place] & [place] 4 14:46:41 Seasonal allergic rhinitis 336141201 Active 2023 Leonel Mckeon NP [address] [facility], [place], [address], [place] JUAN - [facility] - [place] & [place] 4 10:54:01 Right lower zone pneumonia 379583394 Active 2023 ANY SAUCEDO [facility] [address] [facility],[address], [place], [address], [place] - [facility] [place] & [place] 4 16:25:51 Acute bronchitis 87368804 Active 2024 Leonel Mckeon, MYLA [address] [place] [address],[address] [place] [address], [address], [place] [facility] - [place] & [place] 5 16:25:40 Anemia 305811038 Active 2024 Leonel Mckeon, MYLA [address] [place] [address],[address], [place], [address], [place] [facility] & [place] 5 13:56:28 Hypoxemia 166048307 Active 2024 ANY SAUCEDO [facility] [address] [facility],[address] [place] [address], [address], [place] [facility] 5 14:43:58 Amnesia 06965247 Active 2024 ANY SAUCEDO [facility] [address] [facility],[address] [place] [address], [address], [place] [facility] & [place] 5 14:44:41 Open wound of left upper limb Active 2024 ANY SAUCEDO [facility] [address] [facility],[address], [place], [address], [place] [facility] 5 14:57:33 Dyspnea 221174401 Active 2024 ANY SAUCEDO [facility] [address] [facility],[address], [place], [address], [place] [facility] 5 14:57:55 Chronic urinary tract infection 893953233 Active 2024 ANY SAUCEDO [facility] [address] [facility],[address], [place], [address], [place] [facility] & [place] 5 14:58:17 Pneumonia 614158071 Active 2024 ANY SAUCEDO [facility] [address], [place], [address], [place] & [place] 5 15:11:11 Retention of urine 990140910 Active 2024 Leonel Mckeon NP [address] [place] [address],[address], [place], [address], [place] [facility] & [place] 5 15:03:27 Adult failure to thrive syndrome 764144130 Active 2024 Leonel Mckeon NP [address] [place] [address],[address], [place], [address], [place] [facility] & [place] 5 15:03:44 Rheumatoid arthritis 62631167 Active 2021 Leonel Mckeon NP [facility] [address], [place], [address], [place] [facility] & [place] 2 14:37:09 Osteoarthri tis 540017437 Active 2021 Leonel Mckeon NP [address] [place] [address],[address], [place], [address], [place] [facility] & [place] 2 14:37:01 Spinal stenosis 59833789 Active 2021 Leonel Mckeon NP [address] [place] [address],[address], [place], [address], [place] & [place] 2 14:37:11 Irritable bowel syndrome 95239937 Active 2021 Leonel Mckeon NP [facility] [address], [place], [address], [place] [facility] & [place] 2 14:37:03 Essential hypertensio n 10537853 Active 2021 Leonel Mckeon NP [facility] [address], [place], [address], [place] 2 14:36:45 Degenerativ e disorder 440348959 Active 2021 Leonel Mckeon, MYLA [facility] [address], [place], [address], [place] [facility] & [place] 2 14:36:43 Peripheral vascular disease 998711940 Active 2021 Leonel Mckeon, MYLA [facility] [address], [place], [address], [place] [facility] & [place] 2 14:37:06 Chronic myelopathy 1305964701466 08 Active 2021 Leonel Mckeon NP [facility] [address], [place], [address], [place] [facility] & [place] 2 14:36:33 Polyneuropa thy 36345604 Active 2021 Leonel Mckeon NP [facility] [address], [place], [address], [place] [facility] 2 14:37:16 Vitamin D deficiency 41751821 Active 2021 Leonel Mckeon NP [facility] [address], [place], [address], [place] [facility] & [place] 2 14:37:14 Fatigue 44140743 Active 2021 Hazel jenkins, [place] - [facility] - [place] & [place] 2 13:39:17 Carpal tunnel syndrome 25392596 Active 2021 Leonel Mckeon NP [facility] [address], [place], [address], [place] [facility] & [place] 2 14:36:31 Chronic obstructive pulmonary disease 11015163 Active 2021 Leonel Mckeon NP [address] [place] [address],[address] [place] [address], [address], [place] [facility] & [place] 2 14:36:36 Congestive heart failure 47167068 Active 2021 Leonel Mckeon NP [address] [place] [address],[address] [place] [address], [address], [place] [facility] 2 14:36:40 Hyperlipide gianna 90886779 Active 2021 Leonel Mckeon NP [address] [place] [address],[address] [place] [address], [address], [place] [facility] & [place] 2 14:36:58 Peripheral edema 086812298 Active 2021 Leonel Mckeon NP [address] [place] [address],[address] [place] [address], [address], [place] [facility] & [place] 2 14:36:18 Electrolyte imbalance 371165715 Active 2021 Leonel Mckeon NP [address] [place] [address],[address], [place], [address], [place] & [place] 2 16:08:55 Benign hypertensio n 35622294 Active 2021 Hazel Cox null, [place] - [facility] - [place] & [place] 2 10:27:16 Cough 91092747 Active 2021 Matty null, [place] - [facility] - [place] & [place] 2 13:20:46 Acute exacerbatio n of chronic obstructive pulmonary disease 403523755 Active 2021 ANY SAUCEDO [address] [place] [address],[address], [place], [address], [place] & [place] 5 15:11:28 Candidiasis of mouth 33008380 Active 2021 ANY SAUCEDO [address] [place] [address],[facility] te [address] [place] [address], [address], [place] [facility] 5 16:55:32 Acute urinary tract infection 448584847 Active 2022 Leonel Mckeon NP [address] [place] [address],[facility] te [address] [place] [address], [address], [place] [facility] 3 09:41:45 Standard chest X-ray abnormal 392904269 Active 2022 Leonel Mckeon NP [address] [place] [address],[facility] te [address] [place] [address], [address], [place] & [place] 3 09:43:34 Dysfunction of bilateral eustachian tubes 2976838776981 100 Active 2022 DIONNE MENDEZ MD [address] [place] [address], [address], [place], [address], [place] & [place] 3 15:41:50 Thyroid nodule 822410298 Active 2022 Leonel Mckeon NP [address] [place] [address],[facility] te [address] [place] [address], [address], [place] 3 10:07:23 Mixed hyperlipide gianna 885059673 Active 2022 Leonel Mckeon NP [address] [place] [address],[facility] te [address] [place] [address], [address], [place] [facility] 3 11:45:13 Abscess of skin of right wrist 9455110577627 9108 Active 2022 Leonel Mckeon NP [address] [place] [address],[address], [place], [address], [place] [facility] 3 08:44:25 Pain in throat 674994950 Active 2022 Rosey Saldaña null, [place] - [facility] - [facility] & [place] 3 16:49:43 Streptococc al sore throat 70389221 Active 2022 Leonel Mckeon NP [facility] [address], [place], [address], [place] [facility] - [facility] & [place] 3 16:51:20 Pain in throat 759533652 Active 2022 Leonel Mckeon NP [address] [place] [address],[address], [place], [address], [place] 3 16:51:20 Multiple joint pain 26632285 Active 2022 Leonel Mckeon NP [address] [place] [address],[address], [place], [address], [place] [facility] - [facility] & [place] 3 13:20:22 Acute pharyngitis 492104219 Active 2022 Leonel Mckeon NP [facility] [address], [place], [address], [place] 3 14:07:29 Oral erythematou s candidiasis 582445799 Active 2022 Leonel Mckeon NP [facility] [address], [place], [address], [place] 3 14:19:30 Candidiasis of skin 31254405 Active 2022 [address], [place], [address], [place] & [place] 5 16:57:02 Gastro-esop hageal reflux disease with esophagitis 902985184 Active 2022 Leonle Mckeon NP [facility] [address], [place], [address], [place] 3 14:24:02 Candidiasis of vagina 66041173 Active 2022 Leonel Mckeon, MYLA [address] [place] [address],[address] [facility], [place], [address], [place] 3 09:25:19 Influenza caused by Influenza B virus 11352346 Active 2023 Leonel Mckeon, MYLA [address] [place] [address],[address], [place], [address], [place] & [place] 4 15:44:42 Blood glucose outside reference range 494577076 Active 2023 Leonel Mckeon, MYLA [address] [place] [address],[address], [place], [address], [place] [facility] 4 10:55:01 Conductive hearing loss of right ear 9858894158 Active 2023 JACINDA STOKCTON [address] [place] [address],[address], [place], [address], [place] [facility] & [place] 4 10:11:05 Gastroesoph ageal reflux disease without esophagitis 741602573 Active 2023 Terry Byrd MD [address] [place] [address],[address] [place] [address], [address], [place] [facility] 4 06:36:24 Dysphagia 65262756 Active 2023 Terry Byrd MD [address] [place] [address],[address], [place], [address], [place] & [place] 4 09:44:22 Regurgitati on of food 918679834 Active 2023 Terry Byrd MD [address] [place] [address],[address], [place], [address], [place] 4 09:45:04 Folic acid deficiency 665137018 Active 2023 Leonel Mckeon NP [address] [place] [address],[facility] te [address] [place] [address], [address], [place] 4 09:31:22 Degeneratio n of lumbar interverteb ral disc 11840505 Active 2023 Leonel Mckeon NP [address] [place] [address],[address], [address], [place] 4 09:24:39 Hyponatremi a 06720832 Active 2023 Leonel Mckeon NP [address] [place] [address],[address], [address], [place] - [facility] - [place] & [place] 4 09:21:26 Constipatio n 25456625 Active 2023 Leonel Mckeon NP [address] [place] [address],[address], [address], [place] - [facility] - [place] & [place] 4 10:16:23 Near syncope 256986235 Active 2023 Leonel Mckeon NP [address] [place] [address],[address] [place] [address], [address], [place] [facility] 4 09:53:29 Recurrent falls 300991200 Active 2023 Leonel Mckeon NP [address] [place] [address],[address] [place] [address], [address], [place] 4 09:55:34 Tobacco dependence syndrome 49857022 Active 2023 Terry Byrd MD [address] [place] [address],[address] [place] [address], [address], [place] [facility] 4 09:19:07 Problem Notes None recorded. Procedures Surgical History Date Name Laterality Status Provider Name and Address Organization Details Recorded Time 02/29/20 24 Medicare Annual Wellness Visit Health Risk Assessment completed Rosey Sandy [facility] & [place] 02/29/2024 09:11:32 08/15/20 23 Removal of foreign body from ear canal completed DIONNE MENDEZ MD [address] [place] [address], [address], [place], [address], [facility] & [place] 08/15/2023 09:51:17 05/31/20 23 EMG/ Nerve Conduction Study completed Milo Joseph M.D [address] [place] [address] Drive, [address], [place], [address], [facility] - LPNT [facility] & [place] 06/04/2023 11:28:10 01/20/20 23 Tympanostomy with placement of tube completed DIONNE MENDEZ MD [address] [place] [address], [address], [place], [address], [facility] - [facility] & [place] 01/19/2023 16:05:29 08/08/20 22 Excision and closure completed Sudheer Oro MD [address] [place] [address],[address], [place], [address], [facility] - [facility] & [place] 08/08/2022 10:07:19 11/12/19 19 Joint Replacement completed Violeta Shetty [facility] & [place] 08/03/2022 09:24:22 lumbar spinal fusion completed Not Available [facility] 07/31/2022 15:53:39 prosthetic total arthroplasty of right shoulder completed Not Available [facility] 07/31/2022 15:53:39 incision and drainage of abscess completed Hazel Kenny [facility] & [place] 07/31/2022 16:17:54 Imaging Results None recorded. Procedure [...] Updated DateTime 5 165.1 cm 16.3 kg/m2 53429.4 5 g 97.1 [degF] 85 % 85 % 16 /min 85 /min 124 mm[Hg] 74 mm[Hg] February Matty MARTINEZ [facility] & [place] 5 14:14:07 Social History Question Answer Notes LastModified by Organizat ion Details LastModified Time Tobacco Smoking Status Current Every Day Smoker JUAN Ca [facility] & [place] 07/26/2022 13:42:00 Do You Have An Advance Directive? No Information not available 07/31/2022 What Is Your Level Of Alcohol Consumption? None Information not available 07/31/2022 Are You Blind Or Do You Have Difficulty Seeing? No Information not available 07/31/2022 What Is Your Level Of Caffeine Consumption? Occasional API-13 Information not available 12/21/2023 What Type Of Diet Are You Following? REGULAR [email or web address] Information not available 03/21/2024 What Was The [...] Anxious, Or Unable To Sleep At Night)? [id number] Information not available 07/31/2022 Do You Use Any Illicit Or Recreational Drugs? No Information not available 07/31/2022 How Many Years Have You Smoked Tobacco? 20 Information not available 07/31/2022 Do You Or Have You Ever Used Any Other Forms Of Tobacco Or Nicotine? No [email or web address] Information not available 03/21/2024 Sex: Unknown Functional [...] available 2024 14:00:08 Father Kidney disease 63 [email or web address] Not available 08/2024 09:33:16 Medical History Condition [...] Disorder N Colon Polyps N Heart Attack ([place]) N Diabetes N Bleeding Disorder N Seizures/Epilepsy [...] mcg/0.25mL dose 1 completed Hazel Cox null, [place] - [facility] 08/28/2022 10:26:58 COVID-19, mRNA, LNP-S, PF, 100 mcg/0.5mL dose or 50 mcg/0.25mL dose 1 completed Rosey Saldaña null, [place] - [facility] 10/15/2023 13:59:14 COVID-19, mRNA, LNP-S, PF, 100 mcg/0.5mL dose or 50 mcg/0.25mL dose 1 completed Rosey jenkins [place] - LP[facility] & [place] 10/15/2023 13:59:14 COVID-19, mRNA, LNP-S, PF, 100 mcg/0.5mL dose or 50 mcg/0.25mL dose 1 completed JUAN Ca [facility] & [place] 08/28/2022 10:26:58 Td (adult), 2 Lf tetanus toxoid, preservative free, adsorbed 8 completed JUAN Ca [facility] & [place] 08/28/2022 10:26:58 Past Encounters Encounter ID Performer Location Encounter Start Date Encounter Closed Date Diagnosis/Indication Diagnosis SNOMED-CT Code Diagnosis ICD10 Code Diagnosis Note [id number] Gabriela Robles MD [facility] [address] [place] [id number] 01/14/2025 13:51:55 01/14/2025 14:46:51 Otorrhea of left ear 2362025120 583956 H92.12 Ear drainage has resolved. She does not have any evidence of otorrhea at this time. Physical deconditioning 1342196509 9102 R68.89 She needs aggressive physical therapy for recovery. [id number] Viktor Barth MD [facility] [address] [address] 01/27/2025 13:59:50 01/27/2025 15:54:53 Hypoxemia 246177449 R09.02 History of fall 81643239 9 Z91.81 skin tear cleansed and redressed Amnesia 70857905 R41.3 Open wound of left upper limb 5245815848 7106 S41.112A Dyspnea 220203110 R06.00 Chronic ur inary tract infection 108598111 N39.0 Pneumonia 977254662 J18. 9 Acute exac erbation of chronic obstructive pulmonary disease 959997019 J44.1 Health Concerns Section Related Observation LastModified by Organization Detai ls LastModified Time None Recorded Concern Status LastModified by Organization Details LastModified Time None Recorded Payers Encounter Date Sequence Insurance Name Policy Number Policy Umanzor Covered Member ID Umanzor Member ID Guarantor Name 01/27/2025 1 [facility] (MEDICARE REPLACEMENT/ ADVANTAGE - HMO) Marisa Kruse [id number] Marisa Kruse Notes Date Note Type Note Provider Name and Address Organization Details Recorded Time 01/27/2025 text/html patient presents the office today [...] These are all being treated ANY SAUCEDO [address] [place] [address],[address], [place], [address], [place] - [facility] - [place] & [place] 01/28/2025 08:00:15 OBGyn Episode No OBEpisode recorded.
== END 2025-03-04 23:59 | disposition home or self-care (01) ==
LOC: RAD 14:43
PROVIDERS: PCP Nurse Practitioner Family; Visit Provider Physician Assistant
DX: R20.0 Anesthesia of skin (principal); M48.02 Spinal stenosis, cervical region
CPT/HCPCS: 72141

== ENCOUNTER 2025-06-09 21:13 | Emergency (ER) | payer MEDICARE, MEDICAID, SELFPAY ==
[2025-06-09 21:33] VITALS: BP 142/74; PULSE 120; RESP 20; TEMP 36.5; O2SAT 91; BMI 19.1
--- OUTSIDE RECORDS SUMMARY | 2025-06-09 21:42 | XMS_ITS | Encounter Summary ---
Author Organization Healthcare Address [address] [place] [address] Care Team Providers Care Field Contact Technician Name Role Phone Melanie Brice Primary Care Provider [phone] Debora Mckeon DEV OPS ENGINEER Unavailable [phone] Reason for Visit * Reason Comments Med Refill Encounter Details Date Type Department Care Team (Late st Contact Info) Description 03/16/2024 Refill [facility] [address] [place] [address] Lyly November, DEV OPS ENGINEER [address] [place] [address] Seronegative rheumatoid arthritis of multiple sites (CMS/HCC) Social History Tobacco Use Types Packs/Day Years Used Date Smoking Tobacco: Every Day Cigarettes 1 35 Smokeless Tobacco: Never Alcohol Use Standard Drinks/Week Comments Never 0 (1 standard drink = 0.6 oz pur e alcohol) PHQ-2 Answer Date Recorded Patient Health Questionnaire-2 Score 0 12/26/2023 Comments Unknown Sex and Gender Information Value Date Recorded Sex Assigned at Female 06/18/2023 9:52 AM EDT Legal Sex Female 8:33 PM EDT Gender Identity Not on file Sexual Orientation Not on file documented as of this encounter Miscellaneous Notes * Telephone Encounter - Lyly November Mar, DEV OPS ENGINEER - 03/17/2024 10:46 AM EDT She no showed last appt with fellow. documented in this encounter Plan of Treatment Not on file documented as of this encounter Visit Diagnoses Diagnosis Seronegative rheumatoid arthritis of multiple sites (CMS/HCC) documented in this encounter Additional Health Concerns Assessment Noted Time A fall risk assessment has been complete d for the patient 02/08/2024 10:34 AM EDT A Body Mass Index follow-up plan has been documented for the patient 12/26/2023 9:20 AM EST documented as of this encounter Care Teams Field Contact Technician Relationship Specialty Start Date End Date Melanie Brice [address] [place] [address] [phone] PCP - General Family Medicine 01/11/22 Debora Mckeon APRN [address] [place] [id number] Referring Physician 01/11/22 documented as of this encounter
--- OUTSIDE RECORDS SUMMARY | 2025-06-09 21:42 | XMS_ITS | Clinical Summary ---
Author Organization Healthcare Address [address] [place] [address] Care Team Providers Care Bronzer Name Role Phone Melanie Brice Primary Care Provider [phone] Debora Mckeon APRN Unavailable [phone] Allergies No known active allergies Medications diclofenac (Voltaren) 75 MG EC tablet Take 1 tablet (75 mg) by mouth 2 (two) times a day. Do not crush, chew, or split. Active linaCLOtide (Linzess) 145 MCG tablet Take 1 capsule (145 mcg) by mouth 1 (one) time each day. Active potassium chloride (Klor-Con) 20 MEQ packet Take 20 mEq by mouth 2 (two) times a day. Active Tylenol 325 MG tablet Take 2 tablets (650 mg) by mouth every 6 (six) hours if needed. Active carvedilol (Coreg) 3.125 MG tablet Take 1 tablet (3.125 mg) by mouth 2 (two) times a day. Active Trelegy Ellipta 200-62.5-25 MCG/ACT aerosol powder INHALE 1 PUFF ONCE DAILY 4 Active rosuvastatin (Crestor) 10 MG tablet Take 1 tablet (10 mg) by mouth 1 (one) time each day. Active lisinopril 10 MG tablet Take 1 tablet (10 mg) by mouth 1 (one) time each day. 3 Active azithromycin (Zithromax) 250 MG tablet TAKE 2 TABLETS BY MOUTH ON DAY 1, AND THEN TAKE 1 TABLET BY MOUTH ONCE A DAY ON DAY 2 THROUGH DAY 5 4 Active omeprazole (PriLOSEC) [address] capsule Take 1 capsule (20 mg) by mouth 1 (one) time each day. 4 Active fluticasone (Flonase) 50 MCG/ACT nasal spray USE 1 SPRAY(S) IN EACH NOSTRIL ONCE DAILY 4 Active predniSONE (Deltasone) 5 MG tablet Take 1 tablet (5 mg) by mouth 1 (one) time each day. 3 tabs x7days then 2tabs every day x7days then 1 tab every day x7days then stop 42 tablet 4 Active Additional Information Patient not taking.Reported on 06/09/2024 methotrexate 2.5 MG tabletIndicatio ns:Seronegative rheumatoid arthritis of multiple sites ([facility]/HCC) 6 tablets at the same time once weekly. Take with food 24 tablet 2 4 Active Additional Information Patient not taking.Reported on 06/09/2024 potassium chloride CR (Klor-Con M20) 20 MEQ ER tablet Take 1 tablet (20 mEq) by mouth 1 (one) time each day. 4 Active folic acid (Folvite) 1 MG tabletIndicatio ns:Seronegative rheumatoid arthritis of multiple sites ([facility]/HCC) Take 1 tablet by mouth once daily 30 tablet 5 Active Active Problems Problem Noted Date Diagnosed Date Dyspnea on exertion 06/11/2024 Lung nodule 06/11/2024 Heart murmur 06/11/2024 Pleural thickening 06/11/2024 Degeneration of lumbar intervertebral disc 06/03 Tobacco use disorder 12/07/2023 Second hand smoke exposure 12/07/2023 Candidiasis of skin 10/08/2023 Gastro-esophageal reflux disease with esophagiti s 10/08/2023 Multiple joint pain 08/31/2023 Abscess of skin of right wrist 07/18/2023 Arthritis of right wrist 04/26/2023 Arthritis of left wrist 04/26/2023 Arthritis of right hand 04/26/2023 Arthritis of left hand 04/26/2023 Acute urinary tract infection 12/26/2022 Candidiasis of mouth 10/16/2022 Acute exacerbation of chronic obstructive pulmon elizabeth disease 10/10/2022 Peripheral edema 08/14/2022 Carpal tunnel syndrome 07/26/2022 Chronic myelopathy 07/26/2022 Chronic obstructive pulmonary disease 07/26/2022 Overview (06/11/2024): States uses O2@l1 primarily at night- has started using during day also Congestive heart failure 07/26/2022 Fatigue 07/26/2022 Irritable bowel syndrome 07/26/2022 Mixed hyperlipidemia 07/26/2022 Polyneuropathy 07/26/2022 Spinal stenosis 07/26/2022 Vitamin D deficiency 07/26/2022 Hx of emphysema 01/13/2022 Adenopathy 01/13/2022 Ascending aorta dilatation 01/13/2022 HTN (hypertension) 01/12/2022 Acute postoperative pain 12/16/2019 Immunizations Immunization Administration Dates Next Due Moderna COVID-19 Vaccine (Re d Cap) 12+ years 02/21/2021,02/10/2021,01/21/2021,2020 TD (adult), 2 Lf tetanus tox oid, preservative free, adsorbed 12/21/1997 Social History Tobacco Use Types Packs/Day Years Used Date Smoking Tobacco: Every Day Cigarettes 1 36.6 Started: 1988 Passive Smoke Exposure: Current Smokeless Tobacco: Never Tobacco Cessation:Ready to Q uit: Not Asked; Counseling Given: Not Answered Alcohol Use Standard Drinks/Week Comments Never 0 (1 standard drink = 0.6 oz pur e alcohol) PHQ-2 Answer Date Recorded Patient Health Questionnaire-2 Score 0 10/20/2024 Comments Unknown Sex and Gender Information Value Date Recorded Sex Assigned at Female 06/18/2023 9:52 AM EDT Legal Sex Female 8:33 PM EDT Gender Identity Not on file Sexual Orientation Not on file Last Filed Vital Signs Vital Sign Reading Time Taken Comments Blood Pressure 122/69 10/20/2024 10:25 AM EST Pulse 80 10/20/2024 10:25 AM EST Temperature 36.3 C (97.3 F) 10/20/2024 10:25 AM EST Respiratory Rate 16 10/20/2024 10:25 AM EST Oxygen Saturation 93% 10/20/2024 10:25 AM EST Inhaled Oxygen Concentration - - Weight 48.3 kg (106 lb 7.7 oz) 10/20/2024 10:25 AM EST Height 165.1 cm (5' 5 ) 10/20/2024 10:25 AM EST Body Mass Index 17.72 10/20/2024 10:25 AM EST Plan of Treatment Health Maintenance Due Date Last Done Comments [facility]-Bone Density Scan 1959 [facility]-Medicare Annual Wellness (AWV) 1959 [facility]-Infant/Child/Adol SDOH Screenings 1959 [facility]- SDOH Screenings 1977 [facility]-Adult SDOH Screenings 1977 [facility]-Pneumococcal Vaccine: 50+ Years (1 of 2 - PCV) 1978 [facility]-Zoster Vaccines (1 of 2) 1978 [facility]-DTaP,Tdap,and Td Vaccines (1 - Tdap) 12/22/1997 12/21/1997 CT Colonography 2004 Colonoscopy 2004 FIT-DNA 2004 FIT 2004 FOBT 2004 Sigmoidoscopy 2004 [facility]-Colorectal Cancer Screening 2004 [facility]-Breast Cancer Screening 2009 [facility]-RSV Vaccine: 60+ Years or (1 - Risk 60-74 years 1-dose series) 2019 [facility]-XFEEY-80 Vaccine ( season) 2024 02/21/2021, 02/10/2021, 01/21/2021, Additional history exists [facility]-Lung Cancer Screening 06/09/20252023, 02/08/2024, 08/05/2023 [facility]-Influenza Vaccine (#1) 2025 [facility]-Depression Screening 10/20/2025 10/20/2024 [facility]-Hepatitis C Screening Completed 11/27/2023 HPV Vaccines Aged Out No longer eligi ble based on patient's age to complete this topic [facility]-HIB Vaccines Aged Out No longer e ligible based on patient's age to complete this topic [facility]-Hepatitis A Vaccines Aged Out No longer eligible based on patient's age to complete this topic [facility]-IPV Vaccines Aged Out No longer e ligible based on patient's age to complete this topic [facility]-Rotavirus Vaccines Aged Out No lo nger eligible based on patient's age to complete this topic Procedures Procedure Name Priority Date/Time Associated Diagnosis Comments CT CHEST WO IV CONTRAST Routine 06/09/2024 8:31 AM EDT Lung nodule ACUTE HEPATITIS PANEL Routine 11/27/2023 11:16 AM EST Rheumatoid arthritis of multiple sites without rheumatoid factor (CMS/HCC) Elevated rheumatoid factor from Last 3 Months or Most Recently Relevant to Health Maintenance Results * CT Chest wo IV Contrast (06/09/2024 8:31 AM EDT) Anatomical Region Laterality Modality Chest Computed Tomogra phy Impressions 06/09/2024 8:49 AM EDT Increase in groundglass and nodular opacities in the right lower lobe concerning for progression of aspiration or infection. Persistent bronchial wall thickening with some mucous plugging in the right lower lobe. Increased debris in the right lower lobe bronchus concerning for aspiration. Follow-up to resolution is recommended. Remonstration of intervertebral disc height loss with endplate erosions and increased sclerosis at likely L1-2 level which is partially imaged which probably represents a severe arthritic change or less likely sequela of discitis osteomyelitis with a posterior fusion screw which appear to terminate at the intervertebral disc space. Recommend further characterization with lumbar radiograph and CT. CRITICAL RESULT: No. COMMUNICATION: Per this written report. Drafted by Karo Workman MD on 06/09/2024 8:38 AM Final report signed by Karo Workman MD on 06/09/2024 8:49 AM Narrative 06/09/2024 8:49 AM EDT CLINICAL INDICATION: Lung nodule, > 8 mm TECHNIQUE: Multiple axial CT images were obtained from thoracic inlet through upper abdomen without the administration of IV contrast. Reformatted images of the abdomen and pelvis in the coronal and sagittal planes were generated from the axial data set to facilitate diagnostic accuracy. Total DLP (Dose-Length Product): 118.59 mGy.cm. Please note: The reported value represents the total of one or more individual components during the CT acquisition on this date and at this time, and as such, the same value may appear in more than one CT report depending on the interpreting/reporting physicians. COMPARISON: 02/08/2024 FINDINGS: Chest: Lymph Nodes and Mediastinum: Remonstration of multiple subcentimeter mediastinal lymph nodes without significant change. Partially calcified right hilar lymph nodes. No suspicious thyroid findings. Stable dilatation of the main pulmonary artery measuring about 3.5 cm indicative of pulmonary artery hypertension. Stable ectasia of the thoracic ascending aorta . Cardiovascular: The heart size is stable. The thoracic aorta and coronary arteries are atherosclerotic. Lungs and Pleura: Increased debris in the right lower lobe bronchus concerning for aspiration. Upper lung predominant emphysema with biapical pleural-parenchymal thickening and scarring. Increase in tree-in-bud and groundglass nodularities in the right lower lobe. Persistent increased bronchial wall thickening with and some mucous plugging in the right lower lobe. Thin linear scarring in the lung bases and lingula. Few tiny nodules in the lingula are also stable. No new suspicious pulmonary nodules. Centrilobular and paraseptal nodularity in the right lower lobe and to a lesser degree in the lingula. No pleural effusion. Musculoskeletal and Body Wall: Redemonstration of intervertebral disc height loss with endplate erosions and increased sclerosis at possible L1-2 level which is partially imaged with posterior fusion screw which appears to terminate at the intervertebral disc space, grossly similar to the prior examination. Right shoulder arthroplasty. Upper Abdomen: Asymmetric atrophy of the left kidney. No acute findings in the imaged upper abdomen. Procedure Note Karo Workman MD - 06/09/2024 CLINICAL INDICATION: Lung nodule, > 8 mm TECHNIQUE: Multiple axial CT images were obtained from thoracic inlet through upperabdomen without the administration of IV contrast. Reformatted images ofthe abdomen and pelvis in the coronal and sagittal planes were generatedfrom the axial data set to facilitate diagnostic accuracy. Total DLP (Dose-Length Product): 118.59 mGy.cm. Please note: The reportedvalue represents the total of one or more individual components during theCT acquisition on this date and at this time, and as such, the same valuemay appear in more than one CT report depending on theinterpreting/reporting physicians. COMPARISON: 02/08/2024 FINDINGS: Chest: Lymph Nodes and Mediastinum: Remonstration of multiple subcentimetermediastinal lymph nodes without significant change. Partially calcifiedright hilar lymph nodes. No suspicious thyroid findings. Stable dilatationof the main pulmonary artery measuring about 3.5 cm indicative ofpulmonary artery hypertension. Stable ectasia of the thoracic ascendingaorta . Cardiovascular: The heart size is stable. The thoracic aorta and coronaryarteries are atherosclerotic. Lungs and Pleura: Increased debris in the right lower lobe bronchusconcerning for aspiration. Upper lung predominant emphysema with biapicalpleural-parenchymal thickening and scarring. Increase in tree-in-bud andgroundglass nodularities in the right lower lobe. Persistent increasedbronchial wall thickening with and some mucous plugging in the right lowerlobe. Thin linear scarring in the lung bases and lingula. Few tiny nodulesin the lingula are also stable. No new suspicious pulmonary nodules.Centrilobular and paraseptal nodularity in the right lower lobe and to alesser degree in the lingula. No pleural effusion. Musculoskeletal and Body Wall: Redemonstration of intervertebral discheight loss with endplate erosions and increased sclerosis at possibleL1-2 level which is partially imaged with posterior fusion screw whichappears to terminate at the intervertebral disc space, grossly similar tothe prior examination. Right shoulder arthroplasty. Upper Abdomen: Asymmetric atrophy of the left kidney. No acute findings inthe imaged upper abdomen. IMPRESSION: Increase in groundglass and nodular opacities in the right lower lobeconcerning for progression of aspiration or infection. Persistentbronchial wall thickening with some mucous plugging in the right lowerlobe. Increased debris in the right lower lobe bronchus concerning foraspiration. Follow-up to resolution is recommended. Remonstration of intervertebral disc height loss with endplate erosionsand increased sclerosis at likely L1-2 level which is partially imagedwhich probably represents a severe arthritic change or less likely sequelaof discitis osteomyelitis with a posterior fusion screw which appear toterminate at the intervertebral disc space. Recommend furthercharacterization with lumbar radiograph and CT. CRITICAL RESULT: No. COMMUNICATION: Per this written report. Drafted by Karo Workman MD on 06/09/2024 8:38 AM Final report signed by Karo Workman MD on 06/09/2024 8:49 AM Luther Hurtado MD IM CT PROCEDURES Final Resul t * Acute Hepatitis Panel (11/27/2023 11:16 AM EST) Hepatitis B Surf Antigen Negative Negative 11/27/2023 2:16 PM EST [facility] Hepatitis C Antibody Negative Negative 11/27/2023 2:16 PM EST [facility] Hepatitis A Antibody IgM Negative Negative 11/27/2023 2:16 PM EST [facility] Hepatitis B Core Antibody IgM Negative Negative 11/27/2023 2:16 PM EST [facility] Blood Venous blood specimen / Unknown Venipuncture / Unknown 11/27/2023 11:16 AM EST 11/27/2023 11:19 AM EST November R Lyly NUNES [facility] BLOOD ORDERABLES Final Result [facility] [address] [place] [address] from Last 3 Months or Most Recently Relevant to Health Maintenance Insurance [employer] Care Teams Bronzer Relationship Specialty Start Date End Date Melanie Brice [address] [place] [address] PCP - General Family Medicine 01/11/22 Debora Mckeon APRN [address] [place] [address] Referring Physician 01/11/22
--- OUTSIDE RECORDS SUMMARY | 2025-06-09 21:42 | XMS_ITS | Data Portability ---
Author Organization [facility], [place] Address [address] [place] [address] Care Team Providers Care Respiratory Technician Name Role Phone MOHIT OHARAIA Primary Care Provider HEART SMART Referring Provider Assessment Encounter Date Assessment Date Assessment LastModified by Organization Details LastModified Time 12/03/2023 12/03/2023 Imaging Studies Reviewed *Chest CT (05/01/2023): moderate emphysema with stable scattered sub-8mm nodularity and stable scattered mediastinal and hilar lymphadenopathy, 1.3 cm low density defect right thyroid gland, borderline aneurysmal dilation of ascending aorta with mild enlargement of the pulmonary arteries, and moderate spinal stenosis L1-L2 *Chest CT (08/05/2023): mildly spiculated nodule measuring 2.4 x 1.8 cm which is suspicious for primary pulmonary neoplasm; masslike inflammatory consolidation is less likely; trace left greater than right pleural effusions with linear posterior consolidation at the lung bases consistent with basilar atelectasis. 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 indeterminate thyroid nodularity is previously described. ASSESSMENT: 1. COPD *PFT (05/08/2023): mild restriction, +midflow obstruction, +SHANNA response *PFT (10/29/2023): no restriction, +midflow obstruction, minimal SHANNA response 2. Moderate emphysema 3. Multiple nodules of the lung 4. Cough 5. Wheezing 6. Tobacco dependence, continuous PLAN: RX Prednisone 20 mg x 7 days RX Z danis to have on hand if needed 1. Continue Trelegy 200 mcg 1 puff daily; instructed to rinse the mouth after each use. *Failed/Tried Symbicort 2. Continue Albuterol HFA PRN 3. Smoking cessation 4 F/U with Dr. Shah at Interventional Pulmonology as scheduled on 12/07/2023 *Advised patient to take disc of most recent (11/20/2023) Chest CT to appointment *Will order Nodify Lung Nodule surveillance testing via home draw 5. Chest CT (08/05/2023) from [facility] requested and received during todays visit and documented above 6. Recommend Thyroid US if not already completed 6. RTO as scheduled, sooner if needed Not available 12/03/2023 16:32:51 05/08/2024 05/08/2024 Imaging Studies Reviewed *Chest CT (05/01/2023): moderate emphysema with stable scattered sub-8mm nodularity and stable scattered mediastinal and hilar lymphadenopathy, 1.3 cm low density defect right thyroid gland, borderline aneurysmal dilation of ascending aorta with mild enlargement of the pulmonary arteries, and moderate spinal stenosis L1-L2 *Chest CT (08/05/2023): mildly spiculated nodule measuring 2.4 x 1.8 cm which is suspicious for primary pulmonary neoplasm; masslike inflammatory consolidation is less likely; trace left greater than right pleural effusions with linear posterior consolidation at the lung bases consistent with basilar atelectasis. 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 indeterminate thyroid nodularity is previously described. ASSESSMENT: 1. COPD *PFT (05/08/2023): mild restriction, +midflow obstruction, +SHANNA response *PFT (10/29/2023): no restriction, +midflow obstruction, minimal SHANNA response *PFT (05/08/2024):no restriction (FVC 82), +midflow obstruction,+SHANNA response 2. Moderate emphysema 3. Multiple nodules of the lung 4. Cough 5. Wheezing 6. Tobacco dependence, continuous PLAN: 1. Continue Trelegy 200 mcg 1 puff daily; instructed to rinse the mouth after each use. (RX Renewed) *Failed/Tried Symbicort 2. Continue Albuterol HFA PRN (RX Renewed) 3. Smoking cessation 4 F/U with Dr. Shah/ Interventional Pulmonary as scheduled *Advised to contact office (number provided today) to reschedule appointment 5.RTO in 4 months, sooner if needed The patient underwent pulmonary function testing today to evaluate complaints of dyspnea. Results were discussed with the patient. Portions of this note may be dictated using voice recognition software and or use of a medical office worker. Variances in spelling and vocabulary are possible and unintentional. Not all errors are caught/corrected. Please notify the author if any discrepancies are noted or if the meaning of any statement is not clear. This is a summary discussion with the patient and in no way is intended to be a verbatum summation of everything discussed. We apologize for any inconvenience. Not available 05/08/2024 12:32:55 07/07/2024 07/07/2024 Imaging Studies Reviewed *Chest CT (05/01/2023): moderate emphysema with stable scattered sub-8mm nodularity and stable scattered mediastinal and hilar lymphadenopathy, 1.3 cm low density defect right thyroid gland, borderline aneurysmal dilation of ascending aorta with mild enlargement of the pulmonary arteries, and moderate spinal stenosis L1-L2 *Chest CT (08/05/2023): mildly spiculated nodule measuring 2.4 x 1.8 cm which is suspicious for primary pulmonary neoplasm; masslike inflammatory consolidation is less likely; trace left greater than right pleural effusions with linear posterior consolidation at the lung bases consistent with basilar atelectasis. 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 indeterminate thyroid nodularity is previously described. *Chest CT (06/09/2024): Increasing groundglass and nodular opacities in the right lower lobe concerning for progression of aspiration or infection; persistent bronchial wall thickening with some mucus plugging in the right lower lobe; increased debris in the right lower lobe bronchus concerning for aspiration ASSESSMENT: *Pulmonary Clearance 1. COPD *PFT (05/08/2023): mild restriction, +midflow obstruction, +SHANNA response *PFT (10/29/2023): no restriction, +midflow obstruction, minimal SHANNA response *PFT (05/08/2024):no restriction (FVC 82), +midflow obstruction,+SHANNA response *PFT (07/07/2024): moderate obstruction, +midflow obstruction, mild restriction (TLC 76), severely reduced DLCO/VA, no SHANNA response 2. Moderate emphysema 3. Multiple nodules of the lung 4. Cough 5. Wheezing 6. Tobacco dependence, continuous 7. Possible aspiration vs ABPA PLAN: Discussed with patient importance of maintain good respiratory health pre and post operatively. Advised early ambulation as indicated per Dr. Moreno with incentive spirometry use. 1. Continue Trelegy 200 mcg 1 puff daily; instructed to rinse the mouth after each use *Failed/Tried Symbicort 2. Continue Albuterol HFA PRN 3. Smoking cessation 4. Repeat CT Chest in 6 months -next due 11/2024 (Ordered and set to release) *spoke with Dr. Hurtado. Patient to get Chest CT locally and follow up with prn 5. Continue Oxygen 2 L n/c nightly 6. Enroll in [facility] 7.RTO as scheduled, sooner if needed Statement of pulmonary clearance: The patient is optimized from a pulmonary perspective to undergo the proposed procedure as scheduled. She should receive nebulized albuterol pre-, intra-, or post-operatively for any dyspnea/wheeze during the procedure. She was advised to continue her daily maintenance inhaler (Trelegy) including on the morning of surgery. Patient should maintain good pulmonary hygiene and incentive spirometer use. Advised smoking cessation but patient declines. Continue Oxygen 2 L n/c nightly. Monitor for hypoxia. Patient is pending lab results for possible ABPA at [facility]. Results not available during todays visit. The patient underwent pulmonary function testing today to evaluate complaints of dyspnea. Results were discussed with the patient. Portions of this note may be dictated using voice recognition software and or use of a medical office worker. Variances in spelling and vocabulary are possible and unintentional. Not all errors are caught/corrected. Please notify the author if any discrepancies are noted or if the meaning of any statement is not clear. This is a summary discussion with the patient and in no way is intended to be a verbatum summation of everything discussed. We apologize for any inconvenience. Not available 07/08/2024 10:44:17 09/09/2024 09/09/2024 Imaging Studies Reviewed *Chest CT (05/01/2023): moderate emphysema with stable scattered sub-8mm nodularity and stable scattered mediastinal and hilar lymphadenopathy, 1.3 cm low density defect right thyroid gland, borderline aneurysmal dilation of ascending aorta with mild enlargement of the pulmonary arteries, and moderate spinal stenosis L1-L2 *Chest CT (08/05/2023): mildly spiculated nodule measuring 2.4 x 1.8 cm which is suspicious for primary pulmonary neoplasm; masslike inflammatory consolidation is less likely; trace left greater than right pleural effusions with linear posterior consolidation at the lung bases consistent with basilar atelectasis. 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 indeterminate thyroid nodularity is previously described. *Chest CT (06/09/2024): Increasing groundglass and nodular opacities in the right lower lobe concerning for progression of aspiration or infection; persistent bronchial wall thickening with some mucus plugging in the right lower lobe; increased debris in the right lower lobe bronchus concerning for aspiration ASSESSMENT: 1. COPD *PFT (05/08/2023): mild restriction, +midflow obstruction, +SHANNA response *PFT (10/29/2023): no restriction, +midflow obstruction, minimal SHANNA response *PFT (05/08/2024):no restriction (FVC 82), +midflow obstruction,+SHANNA response *PFT (07/07/2024): moderate obstruction, +midflow obstruction, mild restriction (TLC 76), severely reduced DLCO/VA, no SHANNA response 2. Moderate emphysema 3. Multiple nodules of the lung 4. Cough 5. Wheezing 6. Tobacco dependence, continuous 7. Possible aspiration vs ABPA PLAN: 1. Continue Trelegy 200 mcg 1 puff daily; instructed to rinse the mouth after each use *Failed/Tried Symbicort 2. Continue Albuterol HFA PRN 3. Smoking cessation 4. Repeat CT Chest in 6 months -next due 11/2024 (Ordered and set to release) *spoke with Dr. Hurtado. Patient to get Chest CT locally and follow up with [facility] prn 5. Continue Oxygen 2 L n/c nightly 6. Enrolled in [facility] 7.RTO as scheduled, sooner if needed Portions of this note may be dictated using voice recognition software and or use of a medical office worker. Variances in spelling and vocabulary are possible and unintentional. Not all errors are caught/corrected. Please notify the author if any discrepancies are noted or if the meaning of any statement is not clear. This is a summary discussion with the patient and in no way is intended to be a verbatum summation of everything discussed. We apologize for any inconvenience. Not available 09/09/2024 11:09:45 12/24/2024 12/24/2024 Imaging Studies Reviewed *Chest CT (05/01/2023): moderate emphysema with stable scattered sub-8mm nodularity and stable scattered mediastinal and hilar lymphadenopathy, 1.3 cm low density defect right thyroid gland, borderline aneurysmal dilation of ascending aorta with mild enlargement of the pulmonary arteries, and moderate spinal stenosis L1-L2 *Chest CT (08/05/2023): mildly spiculated nodule measuring 2.4 x 1.8 cm which is suspicious for primary pulmonary neoplasm; masslike inflammatory consolidation is less likely; trace left greater than right pleural effusions with linear posterior consolidation at the lung bases consistent with basilar atelectasis. 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 indeterminate thyroid nodularity is previously described. *Chest CT (06/09/2024): Increasing groundglass and nodular opacities in the right lower lobe concerning for progression of aspiration or infection; persistent bronchial wall thickening with some mucus plugging in the right lower lobe; increased debris in the right lower lobe bronchus concerning for aspiration ASSESSMENT: 1. COPD *PFT (05/08/2023): mild restriction, +midflow obstruction, +SHANNA response *PFT (10/29/2023): no restriction, +midflow obstruction, minimal SHANNA response *PFT (05/08/2024):no restriction (FVC 82), +midflow obstruction,+SHANNA response *PFT (07/07/2024): moderate obstruction, +midflow obstruction, mild restriction (TLC 76), severely reduced DLCO/VA, no SHANNA response 2. Moderate emphysema 3. Multiple nodules of the lung 4. Cough 5. Wheezing 6. Tobacco dependence, continuous 7. Possible aspiration vs ABPA PLAN: 1. Continue Trelegy 200 mcg 1 puff daily; instructed to rinse the mouth after each use *Failed/Tried Symbicort 2. Continue Albuterol HFA PRN 3. Smoking cessation 4. Repeat CT Chest in 6 months -next due 11/2024 (Ordered and set to release)-patient advised to call and schedule *spoke with Dr. Hurtado. Patient to get Chest CT locally and follow up with [facility] (next visit 01/06/2025) 5. Continue Oxygen 2 L n/c nightly 6. Enrolled in [facility] 7.RTO in 3 months, sooner if needed Portions of this note may be dictated using voice recognition software and or use of a medical office worker. Variances in spelling and vocabulary are possible and unintentional. Not all errors are caught/corrected. Please notify the author if any discrepancies are noted or if the meaning of any statement is not clear. This is a summary discussion with the patient and in no way is intended to be a verbatum summation of everything discussed. We apologize for any inconvenience. Not available 12/24/2024 12:26:09 Plan of Treatment Reminders Order Date Submit Date Provider Last Modified By Organization Details Last Modified Time Details Appointments None recorded. Lab lung cancer multigene analysis, blood or tissue - 2.4 cm nodule RLL mildly spiculated +smoking history no known history of cancer 2023 024 [facility], [address] [place] [address], [address], 10:42:43 Referral None recorded. Procedures None recorded. Surgeries None recorded. Imaging CT, chest, w/o contrast - #[id number] 31 exp 01/25/20252023 [email or web address] 6 [facility] (Centralized Scheduling), [address] [place] [address] , [place], [address], 4 09:13:16 Medication Orders Trelegy Ellipta 200 mcg-62.5 mcg-25 mcg powder for inhalation 2023 024 [facility], [address], [place], [address], 4 12:34:15 albuterol sulfate HFA 90 mcg/actuati on aerosol inhaler 2023 024 [facility], [address], [place], [address], 4 12:34:13 Zithromax Z-Danis 250 mg tablet [address] [facility], [address], [place], [address], 5 11:04:33 prednisone 20 mg tablet [address] [email or web address] [facility], [address], [place], [address], 11:06:02 Patient TargetsNo targets recorded. Patient Instructions Encounter Date Encounter Id Patient Instructions Last Modified By Organization Details Last Modified Time 12/03/2023 [id number] Smoking cessatio n was discussed with the patient for less than 10 minutes. The detrimental effects to the patient's health of continued smoking was explained. Methods to quit smoking were also discussed to include nicotine replacement therapy and pharmacologic treatment. Not available 12/03/2023 16:33:49 05/08/2024 [id number] Smoking cessatio n was discussed with the patient for less than 10 minutes. The detrimental effects to the patient's health of continued smoking was explained. Methods to quit smoking were also discussed to include nicotine replacement therapy and pharmacologic treatment. Not available 05/08/2024 12:34:00 09/09/2024 [id number] Smoking cessatio n was discussed with the patient for less than 10 minutes. The detrimental effects to the patient's health of continued smoking was explained. Methods to quit smoking were also discussed to include nicotine replacement therapy and pharmacologic treatment. Not available 09/09/2024 11:09:58 Reason for Referral None Reported. Results Created Date Observation Date Name Description Value Unit Range Abnormal Flag Note LastModifiedBy Organization Detail LastModifiedTime 11/20/1911/20/2023 CT, chest , w/o contr ast No observ ation record ed. [email or web address] [address] [place], [address], 11/20/2023 14:48:45 05/09/20 24 05/09/2024 compl ete PFT w/ post [facility] hodil ator matti metry * No observ ation record ed. [email or web address] Not Available 2023 14:59:46 07/16/2007/16/2024 compl ete PFT* No observ ation record ed. [email or web address] Not Available 2023 10:11:13 07/25/20 24 06/09/2024 CT, chest , w/o contr ast No observ ation record ed. [email or web address] Not Available 07/28 08:24:47 12/24/1912/18/2024 XR, chest , 2 view No observ ation record ed. [email or web address] [facility] (Med Record) [address], [place], [address], 12/24/2024 14:37:17 12/25/1908/15/2024 CT, angio gram, chest , w/ contr ast No observ ation record ed. [email or web address] [address] , [place], [address], 12/25/2024 11:02:01 03/20/2008/15/2024 CT, angio gram, chest , w/ contr ast No observ ation record ed. [email or web address] [address] , [place], [address], 03/20/2025 10:49:18 Result Notes None recorded. Problems Name Problem SNOMED Code Status Onset Date Resolution Date Notes Provider Name and Address Organization Details Recorded Time Chronic obstructive pulmonary disease 21108743 Active 2022 christen jenkins [place] - [facility] 5 16:33:00 Lymphadenopath y 88739363 Active 2022 Maria De Jesus Cornell NP [address], [place], [address], [place] - [facility] 3 13:01:35 Acute exacerbation of chronic obstructive pulmonary disease 180290027 Active 2023 Maria De Jesus Cornell NP [address], [place], [address], [place] - [facility] 4 14:17:45 Problem Notes None recorded. Procedures Surgical History Date Name Laterality Status Provider Name and Address Organization Details Recorded Time Back Surgery completed dali ORTIZ - [facility] 09/09/2024 10:49:03 Shoulder joint surgery completed dali ORTIZ - [facility] 09/09/2024 10:49:15 Imaging Results None recorded. Procedure Notes None recorded. Medical Equipment None Reported. Allergies No known drug allergies Medications Name Sig Start Date Stop Date Status Note LastModified by Organization Details LastModified Time cyclobenzap rine 10 mg tablet TAKE 1 TABLET BY MOUTH THREE TIMES DAILY NEEDED FOR MUSCLE SPASM 12/24 completed Not Available Not Available Not Available furosemide 40 mg tablet TAKE 1 TABLET BY MOUTH ONCE DAILY FOR 30 DAYS active Not Available Not Available No t Available fluconazole 100 mg tablet TAKE 1 TABLET BY MOUTH EVERY OTHER DAY FOR 10 DAYS active Not Available Not Available No t Available promethazin e-DM 6.25 mg-15 mg/5 mL oral syrup TAKE 5 ML BY MOUTH EVERY 4 HOURS 12/24 completed Not Available Not Available Not Available nystatin 100,000 unit/mL oral suspension 5 ML 4 TIMES DAILY FOR 10 DAYS active Not Available Not Available No t Available carvedilol 6.25 mg tablet TAKE 1 TABLET BY MOUTH TWICE DAILY WITH FOOD active Not Available Not Available No t Available doxycycline hyclate 100 mg capsule TAKE 1 CAPSULE BY MOUTH TWICE DAILY 10/29 completed Not Available Not Available Not Available cefuroxime axetil 250 mg tablet TAKE 1 TABLET BY MOUTH TWICE DAILY 10/29 completed Not Available Not Available Not Available ipratropium 0.5 mg-albutero l 3 mg (2.5 mg base)/3 mL nebulizatio n soln USE 1 AMPULE IN NEBULIZER EVERY 6 HOURS NEEDED FOR SHORTNESS OF BREATH active Not Available Not Available No t Available clindamycin HCl 300 mg capsule 10/29 completed Not Available Not Available Not Available albuterol sulfate 2.5 mg/3 mL (0.083 %) solution for nebulizatio n active Not Available Not Available Not Available cetirizine 10 mg tablet TAKE 1 TABLET BY MOUTH ONCE DAILY 12/24 completed Not Available Not Available Not Available azithromyci n 250 mg tablet TAKE 2 TABLETS BY MOUTH ON DAY 1, AND THEN TAKE 1 TABLET BY MOUTH ONCE A DAY ON DAY 2 THROUGH DAY 5 active Not Available Not Available No t Available fluconazole 150 mg tablet TAKE ONE TABLET BY MOUTH A ONE-TIME DOSE 10/29 completed Not Available Not Available Not Available hydrocodone 5 mg-acetamin ophen 325 mg tablet TAKE 1 TABLET BY MOUTH EVERY 6 HOURS NEEDED FOR PAIN 09/09 completed Not Available Not Available Not Available prednisone 20 mg tablet TAKE 3 TABLETS FOR 2 DAYS THEN 2 TABLETS FOR 2 DAYS THEN 1 TABLET FOR 2 DAYS active Not Available Not Available No t Available gabapentin 400 mg capsule TAKE 2 CAPSULES BY MOUTH TWICE DAILY 05/08 completed Not Available Not Available Not Available prednisone 5 mg tablet TAKE 3 TABLETS BY MOUTH ONE TIME EACH DAY FOR 7 DAYS, THEN 2 TABS EVERY DAY FOR 7 DAYS, THEN 1 TAB EVERY DAY FOR 7 DAYS THEN STOP. 05/08 completed Not Available Not Available Not Available ciprofloxac in 500 mg tablet TAKE 1 TABLET BY MOUTH EVERY 12 HOURS FOR 10 DAYS 12/24 completed Not Available Not Available Not Available sulfamethox azole 800 mg-trimetho prim 160 mg tablet TAKE 1 TABLET BY MOUTH EVERY 12 HOURS FOR 14 DAYS 10/29 completed Not Available Not Available Not Available doxycycline monohydrate 100 mg tablet TAKE 1 TABLET BY MOUTH TWICE DAILY FOR 10 DAYS 10/29 completed Not Available Not Available Not Available triamcinolo ne acetonide 0.1 % topical cream 09/09 completed Not Available Not Available Not Available spironolact one 25 mg tablet TAKE 1 TABLET BY MOUTH ONCE DAILY active Not Available Not Available No t Available carvedilol 3.125 mg tablet TAKE 1 TABLET BY MOUTH TWICE DAILY 12/24 completed Not Available Not Available Not Available ofloxacin 0.3 % ear drops INSTILL 5 DROPS INTO EACH EAR TWICE DAILY FOR 5 DAYS 10/29 completed Not Available Not Available Not Available amoxicillin 875 mg tablet 10/29 completed Not Available Not Available Not Available potassium chloride ER 20 mEq tablet,exte nded release(par t/cryst) TAKE 1 TABLET BY MOUTH ONCE DAILY active Not Available Not Available No t Available methotrexat e sodium 2.5 mg tablet TAKE 6 TABLETS BY MOUTH ONCE A WEEK AT THE SAME TIME WITH FOOD 09/09 completed Not Available Not Available Not Available linezolid 600 mg tablet TAKE 1 TABLET BY MOUTH TWICE DAILY 12/03 completed Not Available Not Available Not Available cephalexin 500 mg capsule TAKE 1 CAPSULE BY MOUTH EVERY 6 HOURS FOR 7 DAYS 10/29 completed Not Available Not Available Not Available nystatin 100,000 unit/gram topical cream APPLY CREAM TOPICALLY TO AFFECTED AREA TWICE DAILY active Not Available Not Available No t Available lisinopril 10 mg tablet TAKE 1 TABLET BY MOUTH ONCE DAILY active Not Available Not Available No t Available losartan 25 mg tablet TAKE 1 TABLET BY MOUTH ONCE DAILY 05/08 completed Not Available Not Available Not Available omeprazole 20 mg capsule,del ayed release TAKE 1 CAPSULE BY MOUTH ONCE DAILY AROUND THE CLOCK active Not Available Not Available No t Available gentamicin 0.1 % topical cream APPLY 1 GRAM TOPICALLY ONCE DAILY (MIX WITH COLLAGEN POWDER) 10/29 completed Not Available Not Available Not Available Tylenol 325 mg tablet TAKE 2 TABLETS BY MOUTH EVERY 6 HOURS NEEDED 09/09 completed Not Available Not Available Not Available diclofenac sodium 75 mg tablet,sade yed release TAKE 1 TABLET BY MOUTH TWICE DAILY WITH FOOD OR MILK active Not Available Not Available No t Available folic acid 1 mg tablet TAKE 1 TABLET BY MOUTH ONCE DAILY active Not Available Not Available No t Available furosemide 20 mg tablet TAKE 1 TABLET BY MOUTH ONCE DAILY NEEDED FOR EDEMA active Not Available Not Available No t Available metoprolol succinate ER 25 mg tablet,exte [...] Not Available Not Available No t Available vancomycin 10 gram intravenous solution 10/29 completed Not Available Not Available Not Available prednisone 5 mg tablets in a dose pack TAKE 6 TABLETS ON DAY 1 THEN TAKE 5 TABLETS ON DAY 2 THEN TAKE 4 TABLETS ON DAY 3 THEN TAKE 3 TABLETS ON DAY 4 THEN TAKE 2 TABLETS ON DAY 5 THEN TAKE 1 TABLET ON DAY 6. TAKE ALL DOSES WITH FOOD. 10/29 completed Not Available Not Available Not Available levofloxaci n 500 mg tablet TAKE 1 TABLET BY MOUTH ONCE DAILY FOR 7 DAYS 10/29 completed Not Available Not Available Not Available oxycodone-a cetaminophe n 7.5 mg-325 mg tablet TAKE 1 TABLET BY MOUTH EVERY 4 HOURS NEEDED FOR PAIN FOR UP TO 10 DAYS . DO NOT EXCEED DAILY AMOUNT OF 6 TABLETS 12/24 completed Not Available Not Available Not Available methylpredn isolone 4 mg tablets in a dose pack TAKE BY MOUTH DIRECTED ON INSIDE OF PACKAGE 12/24 completed Not Available Not Available Not Available albuterol sulfate HFA 90 mcg/actuati on aerosol inhaler INHALE 2 PUFFS BY MOUTH EVERY 4 HOURS NEEDED active Not Available Not Available No t Available ipratropium bromide 42 mcg (0.06 %) nasal spray USE 2 SPRAY(S) IN EACH NOSTRIL THREE TIMES DAILY active Not Available Not Available No t Available cefdinir 300 mg capsule TAKE 1 CAPSULE BY MOUTH EVERY 12 HOURS active Not Available Not Available No t Available fluticasone propionate 50 mcg/actuati on nasal spray,suspe nsion USE 1 SPRAY(S) IN EACH NOSTRIL ONCE DAILY 12/24 completed Not Available Not Available Not Available doxycycline hyclate 100 mg tablet TAKE 1 TABLET BY MOUTH EVERY 12 HOURS 12/24 completed Not Available Not Available Not Available metoclopram fredy 10 mg tablet TAKE 1 TABLET BY MOUTH TWICE DAILY 12/24 completed Not Available Not Available Not Available amoxicillin 500 mg-potassiu m clavulanate 125 mg tablet TAKE ONE TABLET BY MOUTH THREE TIMES DAILY FOR 5 DAYS -- FINISH ALL MEDICINE -- active Not Available Not Available No t Available cyclobenzap rine 5 mg tablet TAKE 1 TABLET BY MOUTH THREE TIMES DAILY NEEDED FOR MUSCLE SPASM 09/09 completed Not Available Not Available Not Available ciprofloxac in 0.3 %-dexametha sone 0.1 % ear drops,suspe nsion INSTILL 4 DROPS INTO LEFT EAR TWICE DAILY FOR 7 DAYS 12/24 completed Not Available Not Available Not Available rosuvastati n 10 mg tablet TAKE 1 TABLET BY MOUTH ONCE DAILY 12/24 completed Not Available Not Available Not Available sodium chloride 1,000 mg soluble tablet TAKE TABLET BY MOUTH ONCE DAILY active Not Available Not Available No t Available Symbicort 80 mcg-4.5 mcg/actuati on HFA aerosol inhaler INHALE 2 PUFFS BY MOUTH TWICE DAILY 10/29 completed Not Available Not Available Not Available peg 3350-electr olytes 236 gram-22.74 gram-6.74 gram-5.86 gram solution TAKE DIRECTED BY DR. [facility] OFFICE active Not Available Not Available No t Available Mucus Relief ER 600 mg tablet, extended release TAKE 1 TABLET BY MOUTH TWICE DAILY. DO NOT CRUSH, CHEW, OR SPLIT 12/24 completed Not Available Not Available Not Available Linzess 145 mcg capsule TAKE 1 CAPSULE BY MOUTH ONCE DAILY active Not Available Not Available No t Available Entresto 24 mg-26 mg tablet TAKE 1 TABLET BY MOUTH TWICE DAILY active Not Available Not Available No t Available Trelegy Ellipta 100 mcg-62.5 mcg-25 mcg powder for inhalation INHALE 1 PUFF ONCE DAILY active Not Available Not Available No t Available Trelegy Ellipta 200 mcg-62.5 mcg-25 mcg powder for inhalation INHALE 1 PUFF ONCE DAILY 2024 active Not Available Not Available Not Avai lable Vitals Date Recorded Body height Body mass index (BMI) Body weight Oxygen saturation Oxygen saturation in Arterial blood by Pulse oximetry Heart rate Body temperature Systolic And Diastolic Provider Name and Address Organization Details Last Updated DateTime 4 167.64 cm 17.8 kg/m2 29916.1 6 g 95 % 95 % 78 /min 98.2 [degF] 156/84 mm[Hg] radha hernandez [facility] 4 13:53:07 Date Recorded Body height Body mass index (BMI) Body weight Oxygen saturation Oxygen saturation in Arterial blood by Pulse oximetry Heart rate Respiratory rate Body temperature Systolic And Diastolic Provider Name and Address Organization Details Last Updated DateTime 5 167.64 cm 16.5 kg/m2 00754.4 2 g 91 % 91 % 69 /min 18 /min 98.5 [degF] 104/64 mm[Hg] christen acevedo [facility] 5 11:02:54 Date Recorded Body height Body mass index (BMI) Body weight Oxygen saturation Oxygen saturation in Arterial blood by Pulse oximetry Heart rate Respiratory rate Body temperature Systolic And Diastolic Provider Name and Address Organization Details Last Updated DateTime 4 167.64 cm 17.8 kg/m2 98642.1 6 g 93 % 93 % 62 /min 18 /min 98 [degF] 138/70 mm[Hg] radha hernandez [facility] 4 10:32:07 Date Recorded Body height Body mass index (BMI) Body weight Oxygen saturation Oxygen saturation in Arterial blood by Pulse oximetry Heart rate Respiratory rate Body temperature Systolic And Diastolic Provider Name and Address Organization Details Last Updated DateTime 4 167.64 cm 17.8 kg/m2 89553.1 6 g 86 % 86 % 86 /min 18 /min 99.1 [degF] 102/64 mm[Hg] radha hernandez [facility] 4 12:05:57 Date Recorded Body height Body mass index (BMI) Body weight Respiratory rate Systolic And Diastolic Provider Name and Address Organization Details Last Updated DateTime 09/09/2024 167.64 cm 16.9 kg/m2 59243.2 g 18 /min 128/78 mm[Hg] dali radha [facility] 4 10:44:54 Social History Question Answer Notes LastModified by Organizat ion Details LastModified Time Tobacco Smoking Status Current Every Day Smoker christen jenkins [facility] 10/29/2023 09:40:43 Do You Have An Advance Directive? No Information not available 10/29/2023 Is Your Home Air Conditioned? Yes [email or web address] Information not available 10/29/2023 Where Do You Live? [facility] [email or web address] Information not available 09/09/2024 Do You Have A Medical Power Of Concrete Bucket Hooker? No [email or web address] Information not available 10/29/2023 What Was The Date Of Your Most Recent Tobacco Screening? 12/24/2024 [email or web address] Information not available 12/24/2024 What Is Your Current Pack Years? 30ormorepackyears [email or web address] Information no t available 10/29/2023 Do You Have Any Pets? No [email or web address] Information not available 10/29/2023 What Is Your Relationship Status? [email or web address] Information not available 09/09/2024 At What Age Did You Start Smoking Tobacco? 34 [email or web address] Information not available 10/29/2023 Are There Any Smokers In Your House? Yes Information not available 10/29/2023 How Much Tobacco Do You Smoke? 1 PPD [email or web address] Information not available 10/29/2023 Has Tobacco Cessation Counseling Been Provided? Yes Information not available 10/29/2023 On What Date Was Tobacco Cessation Counseling Provided? 12/24/2024 Information not available 12/24/2024 How Many Years Have You Smoked Tobacco? 28 [email or web address] Information not available 10/29/2023 Have You Recently Traveled Abroad? No [email or web address] Information not available 10/29/2023 Are You Currently In School? No [email or web address] Information not available 10/29/2023 Sex: Unknown Functional Status Question Answer Note LastModified by Organizat ion Details LastModified Time Do you or have you ever used any other forms of tobacco or nicotine? No [email or web address] Information not available 10/29/2023 Are you currently employed? 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 Family History Relationship Description Onset Age of this Age Resolved Age Notes LastModified by Organization Details LastModified Time Father Kidney disease [email or web address] Not available 09/09 10:47:21 Father Chronic obstructive pulmonary disease [email or web address] Not available 09/09 10:47:26 Mother Malignant neoplasm of brain [email or web address] Not available 09/09 10:47:37 Mother Hypertensive disorder [email or web address] Not available 09/09 10:47:43 Medical History No medical history recorded. Gynecological HistoryNo gynecological history recorded. Obstetrics History GPAL:G 0 P 0 0 0 0 Past Encounters Encounter ID Performer Location Encounter Start Date Encounter Closed Date Diagnosis/Indication Diagnosis SNOMED-CT Code Diagnosis ICD10 Code Diagnosis Note [id number] Maria De Jesus Cornell NP [facility] [facility] [address] [place] [address] [place] [address] 05/08/2023 14:35:45 05/08/2023 16:05:54 Chronic obstructive pulmonary disease 31423605 J44.9 Pulmonary emphysema 8743 3001 J43.9 Multiple n odules of lung 234712499 R91.8 Cough 72162905 R05.9 Wheezing 22470520 R06.2 Tobacco de pendence, continuous 866402730 F17.290 [id number] Maria De Jesus Cornell NP [address] [phone] 06/05/2023 09:47:09 06/05/2023 14:27:38 Chronic obstructive pulmonary disease 14564175 J44.9 Pulmonary emphysema 8743 3001 J43.9 Multiple n odules of lung 411673211 R91.8 Cough 45392389 R05.9 Wheezing 72743853 R06.2 Tobacco de pendence, continuous 737818768 F17.290 [id number] Maria De Jesus Cornell NP [address] [id number] 10/29/2023 09:10:24 10/29/2023 09:56:42 Chronic obstructive pulmonary disease 74926399 J44.9 Pulmonary emphysema 8743 3001 J43.9 Multiple n odules of lung 850582929 R91.8 Cough 81851070 R05.9 Wheezing 10607217 R06.2 Tobacco de pendence, continuous 684517501 F17.290 Lymphadenopathy 36129431 R59.9 [id number] Maria De Jesus Cornell NP [address] [address] 12/03/2023 13:44:30 12/03/2023 14:53:40 Chronic obstructive pulmonary disease 36501159 J44.9 Pulmonary emphysema 8743 3001 J43.9 Multiple n odules of lung 625236237 R91.8 Cough 94690405 R05.9 Wheezing 41373593 R06.2 Tobacco de pendence, continuous 722081873 F17.290 Lymphadenopathy 73207197 R59.9 Acute exac erbation of chronic obstructive pulmonary disease 317364946 J44.1 [id number] Maria De Jesus Cornell NP [address] [address] 05/08/2024 10:22:00 05/08/2024 10:56:03 Chronic obstructive pulmonary disease 07603848 J44.9 Pulmonary emphysema 8743 3001 J43.9 Multiple n odules of lung 711253003 R91.8 Cough 54303693 R05.9 Wheezing 33900657 R06.2 Tobacco de pendence, continuous 831426826 F17.290 Lymphadenopathy 89680919 R59.9 Acute exac erbation of chronic obstructive pulmonary disease 709772096 J44.1 [id number] Emigdio Medina [facility] [address] [place] [address] DR [address] [place] [id number] 07/07/2024 11:30:52 07/07/2024 13:13:16 Chronic obstructive pulmonary disease 91208911 J44.9 Pulmonary emphysema 8743 3001 J43.9 Multiple n odules of lung 072909827 R91.8 Cough 82955219 R05.9 Wheezing 04996271 R06.2 Tobacco de pendence, continuous 040532010 F17.290 Lymphadenopathy 66309734 R59.9 Acute exac erbation of chronic obstructive pulmonary disease 961502616 J44.1 [id number] Emigdio Medina [facility] [address] [place] [address] DR [address] [place] [id number] 09/09/2024 10:32:11 09/09/2024 11:01:43 Chronic obstructive pulmonary disease 88541702 J44.9 Pulmonary emphysema 8743 3001 J43.9 Multiple n odules of lung 792343554 R91.8 Cough 48267682 R05.9 Wheezing 71575816 R06.2 Tobacco de pendence, continuous 992821512 F17.290 Lymphadenopathy 88986497 R59.9 Acute exac erbation of chronic obstructive pulmonary disease 830359081 J44.1 [id number] Emigdio Medina [address] [place] [id number] 12/24/2024 10:49:08 12/24/2024 12:07:44 Chronic obstructive pulmonary disease 21142438 J44.9 Pulmonary emphysema 8743 3001 J43.9 Multiple n odules of lung 923207821 R91.8 Cough 30512166 R05.9 Wheezing 80570422 R06.2 Tobacco de pendence, continuous 328841988 F17.290 Lymphadenopathy 27004984 R59.9 Acute exac erbation of chronic obstructive pulmonary disease 196835327 J44.1 Health Concerns Section Related Observation LastModified by Organization Detai ls LastModified Time None Recorded Concern Status LastModified by Organization Details LastModified Time None Recorded Advance Directives Directive N: Payers Insurance Date Sequence Insurance Name Policy Number Policy Umanzor Covered Member ID Umanzor Member ID Guarantor Name 03/20/2025 2 [place] [facility] CHOICES - FFS/TRADITION AL Marisa Kruse [id number] Marisa Kruse 03/20/2025 1 [employer] - DUAL ELIGIBLE (MEDICARE REPLACEMENT/A DVANTAGE - HMO) Marisa Kruse [id number] Marisa Kruse 07/07/2024 1 [employer] [place] (MEDICAID HMO) Marisa Kruse [id number] Marisa Kruse 07/07/2024 1 PASSP[employer] BY [employer] (MEDICAID REPLACEMENT - HMO) Marisa Kruse [id number] Marisa Kruse OBGyn Episode No OBEpisode recorded.
--- OUTSIDE RECORDS SUMMARY | 2025-06-09 21:42 | XMS_ITS | Clinical Summary ---
Author Organization [facility] Address [address] [facility] [address] [place] [address] Care Team Providers Care Broadband Technician Name Role Phone Unavailable Primary Care Provider Unavailabl e Social History Tobacco Use Types Packs/Day Years Used Date Smoking Tobacco: Never Assessed Comments Unknown Sex and Gender Information Value Date Recorded Sex Assigned at Not on file Legal Sex Female 10:42 AM EDT Gender Identity Not on file Sexual Orientation Not on file Plan of Treatment Health Maintenance Due Date Last Done Comments Bone Density Scan 1959 CT Colonography 1959 Colonoscopy 1959 Colorectal Cancer Screening 1959 FIT-DNA (Cologuard) 1959 FIT 1959 FOBT 1959 Hepatitis C Screening 1959 Sigmoidoscopy 1959 Hepatitis B Screening 1977 DTaP/Tdap/Td Vaccines (1 - Tdap) 1978 Mammogram 1999 Pneumococcal Vaccine: 50+ Ye ars (1 of 1 - PCV) 2009 Zoster Vaccines (1 of 2) 2009 COVID-19 Vaccine (1 - 2023-2 5 season) 2024 Depression Risk Screening 11/12/2024 Fall Risk Screening 11/12/2024 SDOH Screening 11/12/2024 Influenza Vaccine (#1) 2025 HIB Vaccines Aged Out No longer eligi ble based on patient's age to complete this topic HPV Vaccines Aged Out No longer eligi ble based on patient's age to complete this topic Hepatitis A Vaccines Aged Out No long er eligible based on patient's age to complete this topic Hepatitis B Vaccines Aged Out No long er eligible based on patient's age to complete this topic IPV Vaccines Aged Out No longer eligi ble based on patient's age to complete this topic Meningococcal B Vaccine Aged Out No l onger eligible based on patient's age to complete this topic Meningococcal Vaccine Aged Out No divya valentin eligible based on patient's age to complete this topic Rotavirus Vaccines Aged Out No longer eligible based on patient's age to complete this topic
--- OUTSIDE RECORDS SUMMARY | 2025-06-09 21:43 | XMS_ITS | Encounter Summary ---
Author Organization [facility] Address [address] [place] [address] Care Team Providers Care Wet Pour Mixer Name Role Phone Melanie Brice Primary Care Provider [phone] Debora Mckeon BRICK PAVER Unavailable [phone] Reason for Referral * Consultation (Routine) - Closed Specialty Diagnoses / Procedures Referred By Joanna t Referred To Contact Rheumatology Diagnoses Rheumatoid arthritis of multiple sites without rheumatoid factor (CMS/HCC) Debora Mckeon APRN [address] [place] [address] Phone: tel: fax: Referral ID Status Reason Start Date Expiration Date V isits Requested Visits Authorized [id number] Closed Specialty Services Required 10/17/2023 04/17/2025 1 1 Encounter Details Date Type Department Care Team (Late st Contact Info) Description 10/17/2023 Community [facility] [address] [place] [address] Debora Mckeon APRN [address] [place] [address] Rheumatoid arthritis of multiple sites without rheumatoid factor (CMS/HCC) (Primary Dx) Social History Tobacco Use Types Packs/Day Years Used Date Smoking Tobacco: Every Day Smokeless Tobacco: Never Alcohol Use Standard Drinks/Week Comments Never 0 (1 standard drink = 0.6 oz pur e alcohol) Comments Unknown Sex and Gender Information Value Date Recorded Sex Assigned at Female 06/18/2023 9:52 AM EDT Legal Sex Female 8:33 PM EDT Gender Identity Not on file Sexual Orientation Not on file documented as of this encounter Plan of Treatment Scheduled Referrals Name Type Priority Associated Diagnoses Order Schedule Ambulatory referral to Rheumatology Outpatient Referral Routine Rheumatoid arthritis of multiple sites without rheumatoid factor (CMS/HCC) Expected: 10/17/2023 (Approximate), Expires: 04/17/2025 documented as of this encounter Visit Diagnoses Diagnosis Rheumatoid arthritis of multiple sites without rheumatoid factor (CMS/HCC)- Primary documented in this encounter Additional Health Concerns Assessment Noted Time A fall risk assessment has been complete d for the patient 06/18/2023 10:04 AM EDT documented as of this encounter Care Teams Wet Pour Mixer Relationship Specialty Start Date End Date Melanie Brice [address] [place] [id number] PCP - General Family Medicine 01/11/22 Debora Mckeon APRN [address] [place] [id number] Referring Physician 01/11/22 documented as of this encounter
--- OUTSIDE RECORDS SUMMARY | 2025-06-09 21:43 | XMS_ITS | Clinical Summary ---
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 T84.59xD (ICD-10-CM ) 01/08 Active 01/08 Anushka W Infection and inflammatory reaction due to other internal joint prosthesis, subsequent encounter Serratia marcescens infection B96.89 (ICD-10-CM ) 01/08 Active 01/08 Lloyd Campbell MD Other specified bacterial agents as the cause of diseases classified elsewhere cellulitis, shoulder, right 15410060 (SNOMED CT) 01/08 Active 01/08 Teresita Sawyer Cellulitis of shoulder Infection and 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 7 SULFAMETHOXAZO LE-TRIMETHOPRI M [id number] Lloyd Campbell MD ERTAPENEM SODIUM 1 GM SOLR 1 gm IV Q 24 hrs/OPAT 7 ERTAPENEM SODIUM [id number] Marium Medina RN DICLOFENAC POTASSIUM TABS Take by mouth twice a day 7 DICLOFENAC POTASSIUM TABS 20432168280 Gricelda Nigel GABAPENTIN 300 MG CAPS 7 GABAPENTIN [id number] Claire Kathy LINZESS 145 MCG CAPS 7 LINACLOTIDE [id number] Claire [place] Medications Administered No information available. Allergies, Adverse Reactions, Alerts No information available. Results Date Name Value Unit Range Flag Description Lab Report: COMPREHENSIVE ME TABOLIC PANEL, SED RATE BY MODIFIED ANDREWERGR ... BASOPHIL % 0.5 % N Basophils/ 100 leukocytes in Blood by Manual count EOSINOPHIL % 0.0 % N Eosinoph ils/100 leukocytes in Blood by Manual count LYMPHS % 19.8 % N Lymphocytes/ 100 leukocytes in Blood by Automated count PMN % 71 % N Neutrophils/1 00 leukocytes in Blood by Automated count MPV 11.7 fL 7.5-12.5 N Platelet cailin n volume [Entitic volume] in Blood by Favian A/G RATIO 1.3 (calc) 1.0-2.5 N Albumin/ Globulin [Mass Ratio] in Serum or Plasma GLOBULIN 2.8 1.9-3.7 N Globulin [Mass/volume] in Serum EGFR IF AFA 63 mL/min/1 .73m2 > OR = 60 N Glomerular filtration rate/1.73 sq M.predicted among blacks [Volume Rate/Area] in Serum, Plasma or Blood by Creatinine-based formula (MDRD) EGFR 55 mL/min/1 .73m2 > OR = 60 L Glomerular filtration rate/1.73 sq M.predicted [Volume Rate/Area] in Serum, Plasma or Blood by Creatinine-based formula (MDRD) Lab Report: CBC WITH AUTO DI FFERENTIAL RDW 19.7 % 12.3-15.4 H Erythrocyte distribution width [Ratio] by Automated count Office Visit: Room 1 MEDS REVIEW Done Documenta tion of current medications (procedure) ORALTOBACUSE Never Tobacco smoking status CIGARET SMKG yes Tobacco smoking status SMOK STATUS Current every day smoker Tobacco smoking status Lab Report: CBC WITH AUTO DI FFERENTIAL ZZ-GE-[id number] 0.0 /100 WBC 0.0-0.2 GE use only - for [employer] import when terms are not otherwise specified IMMATUREGRAN 0.01 10*3/MM3 0.00-0.05 Immature granulocytes [#/volume] in Blood BASO# 0.03 10*3/mm3 0.00-0.20 Basophils [#/vol ume] in Blood EOS ABSLT 0.04 10*3/uL 0.00-0.40 Eosinophi ls [#/volume] in Blood MONOSCT AUTO 0.47 10*3/uL 0.10-0.90 Monocy kalpana [#/volume] in Blood by Automated count LYMPHCT AUTO 0.98 10*3/mm3 0.70-3.10 Lymph ocytes [#/volume] in Blood by Automated count ABS NEUTROPH 3.04 10*3/uL 1.70-7.00 Neutro phils [#/volume] in Blood IMM GRANU % 0.2 % 0.0-0.5 Immature granulocytes/100 leukocytes in Blood % EOS AUTO 0.9 % 0.3-6.2 Eosinophil s/100 leukocytes in Blood by Automated count MONOCYTE % 10.3 % 5.0-12.0 Monocytes /100 leukocytes in Blood by Automated count LYMPHOCY BF 21.4 % 19.6-45.3 lymphoc ytes as percent of body fluid leukocytes NEUTROP BF 66.5 % 42.7-76.0 Neutroph ils/100 leukocytes in Body fluid PLATELETS 159 10*3/mm3 140-450 Platelets [#/volume] in Blood by Automated count RDW_ 17.2 12.3-15.4 H RDW, no uni ts MCHC 31.5 G/DL 31.5-35.7 MCHC [Mass/ volume] by Automated count MCH 29.1 pg 26.6-33.0 MCH [Entiti c mass] by Automated count MCV 92.6 fL 79.0-97.0 MCV [Entiti c volume] by Automated count HCT 37.5 % 34.0-46.6 Hematocrit [Volume Fraction] of Blood by Automated count HGB 11.8 g/dL 12.0-15.9 L Hemoglobin [Mass/volume] in Blood RBC 4.05 10*6/mm3 3.77-5.28 Erythrocyt es [#/volume] in Blood by Automated count WBC 4.57 10*3/mm3 3.40-10.8 0 Leukocytes [#/volume] in Blood by Automated count Lab Report: SEDIMENTATION RA TE ESR 12 mm/h 0-30 Erythrocyte sedimentation rate by Westergren method Lab Report: COMPREHENSIVE ME TABOLIC PANEL ANIONGAP 8.0 mmol/L 5.0-15.0 anion gap, serum BUN/CREAT 11.3 7.0-25.0 Urea nitrogen/Creatinine [Mass Ratio] in Serum or Plasma GFRC 53 mL/min/1 .73m2 >60 L Glomerular Filtration Rate Calculation BILI TOTAL 0.2 mg/dL 0.0-1.2 Bilirubin. total [Mass/volume] in Serum or Plasma ALK PHOS 95 U/L 39-117 Alkaline yg sphatase [Enzymatic activity/volume] in Blood SGOT (AST) 15 U/L 1-32 Aspartate aminotransferase [Enzymatic activity/volume] in Serum or Plasma SGPT (ALT) 13 U/L 1-33 Alanine aminotransferase [Enzymatic activity/volume] in Serum or Plasma ALBUMIN 4.20 g/dL 3.50-5.20 Albumin [Mass/volume] in Serum or Plasma PROTEIN, TOT 6.8 g/dL 6.0-8.5 Protein [Mass/volume] in Serum or Plasma CALCIUM 8.9 mg/dL 8.6-10.5 Calcium [Moles/volume] in Serum or Plasma CO2 29.0 mmol/L 22.0-29.0 Carbon diox fredy, total [Moles/volume] in Venous blood CHLORIDE 94 mmol/L 98-107 L Chloride [Moles/volume] in Serum or Plasma POTASSIUM 5.1 mmol/L 3.5-5.2 Potassium [Moles/volume] in Serum or Plasma SODIUM 131 mmol/L 136-145 L Sodium [Moles/volume] in Serum or Plasma CREATININE 1.06 mg/dL 0.57-1.00 H Creatini ne [Mass/volume] in Serum or Plasma BUN 12 mg/dL 8-23 Urea nitrogen [Mass/volume] in Serum or Plasma GLUCOSE SER 89 mg/dL 65-99 Glucose [Mass/volume] in Serum or Plasma Lab Report: C-REACTIVE PROTE IN CRP 0.16 mg/dL 0.00-0.50 C reactive protein [Mass/volume] in Serum or Plasma Plan of Care Type Date Detail Pending order Labs Pending order Labs Pending Order exclud ed from report: Pending order STAT Labs Pending order CMP Pending order CBC with Differe ntial Pending order C- reactive prot ein Pending order Sedimentation Ra te (ESR) Pending order Other Pending order Continue oral an tibiotics Pending order CBC with Differe ntial Pending order CMP Pending order Sedimentation Ra te (ESR) Pending order C- reactive prot ein Pending order Continue oral an tibiotics Pending order CBC with Differe ntial Pending order CMP Pending order Sedimentation Ra te (ESR) Pending order C- reactive prot ein Pending order STAT Labs Pending order Continue oral an tibiotics Pending order CBC with Differe ntial Pending order CMP Pending order Sedimentation Ra te (ESR) Pending order C- reactive prot ein Pending order STAT Labs Pending order Continue IV anti biotics Pending order CBC with Differe ntial Pending order CMP Pending order Sedimentation Ra te (ESR) Pending order C- reactive prot ein Pending order New Oral Antibio tic Pending order STAT Labs Pending order CMP Pending order CBC with Differe ntial Pending order C- reactive prot ein Pending order Sedimentation Ra te (ESR) Pending order Stat Weekly Labs Pending order STAT Labs Pending order CMP Pending order CBC with Differe ntial Pending order C- reactive prot ein Pending order Sedimentation Ra te (ESR) Pending order STAT Labs Pending order CMP Pending order CBC with Differe ntial Pending order C- reactive prot ein Pending order Sedimentation Ra te (ESR) Pending order STAT Labs Pending order CMP Pending order CBC with Differe ntial Pending order C- reactive prot ein Pending order Sedimentation Ra te (ESR) Pending order STAT Labs Pending order PICC Line Insert ion Pending order STAT Labs Pending order CMP Pending order CBC with Differe ntial Pending order C- reactive prot ein Pending order Sedimentation Ra te (ESR) Pending order Stat Weekly Labs Patient education Medications Patient education Medications Patient education Medications Procedures Code Procedure Name Date Entry Date CPT-labs Labs CPT-sl STAT Labs CPT-42023 CMP [id number] CBC with Differential 2019 CPT-55182 C- reactive protein CPT-27918 Sedimentation Rate (ESR) 202 CPT-LAB Other CPT-Cooral Continue oral antibiotics 20 31/03/19 [id number] CBC with Differential 2019 CPT-91915 CMP CPT-83408 Sedimentation Rate (ESR) 202 CPT-42100 C- reactive protein CPT-Cooral Continue oral antibiotics 20 31/03/05 [id number] CBC with Differential 2019 CPT-85343 CMP CPT-99674 Sedimentation Rate (ESR) 202 CPT-96962 C- reactive protein CPT-sl STAT Labs CPT-Cooral Continue oral antibiotics 20 01/03/21 [id number] CBC with Differential 2019 CPT-59534 CMP CPT-51989 Sedimentation Rate (ESR) 202 CPT-27871 C- reactive protein CPT-sl STAT Labs CPT-ca Continue IV antibiotics 2019 [id number] CBC with Differential 2019 CPT-25344 CMP CPT-41214 Sedimentation Rate (ESR) 202 CPT-16597 C- reactive protein CPT-kathie New Oral Antibiotic CPT-sl STAT Labs CPT-32479 CMP [id number] CBC with Differential 2019 CPT-40114 C- reactive protein CPT-13250 Sedimentation Rate (ESR) 202 CPT- stat weekly Stat Weekly Labs CPT-sl STAT Labs CPT-97906 CMP [id number] CBC with Differential 2019 CPT-68943 C- reactive protein CPT-48716 Sedimentation Rate (ESR) 202 CPT-sl STAT Labs CPT-64387 CMP [id number] CBC with Differential 2019 CPT-08267 C- reactive protein CPT-76419 Sedimentation Rate (ESR) 202 CPT-sl STAT Labs CPT-14810 CMP [id number] CBC with Differential 2019 CPT-47802 C- reactive protein CPT-23703 Sedimentation Rate (ESR) 202 CPT-sl STAT Labs CPT-59113 PICC Line Insertion CPT-sl STAT Labs CPT-13225 CMP [id number] CBC with Differential 2019 CPT-61378 C- reactive protein CPT-86957 Sedimentation Rate (ESR) 202 CPT- stat weekly Stat Weekly Labs Vital Signs Date Name Value Unit Description BMI (Body Mass Index) 17.62 kg/m2 Bod y Mass Index (Ratio) Body Temperature 98.2 [degF] temperat ure E&M BP Diastolic 62 mm[Hg] blood pressu re, diastolic BP Systolic 138 mm[Hg] blood pressur e, systolic Heart Rate 76 /min pulse rate Respiratory Rate 16 /min respirat ory rate E&M Weight Measured 109.2 [lb_av] weight E& M Weight Measured 109.2 [lb_av] weight E& M Height 66 [in_us] height E&M Immunizations No information available. Advance Directives Directive Description Start Date NO ADVANCED DIRECTIVES ESTABLISHED AT IS TIME
--- OUTSIDE RECORDS SUMMARY | 2025-06-09 21:43 | XMS_ITS | Encounter Summary ---
Author Organization [facility] Address [address] [place] [address] Care Team Providers Care History Tutor Name Role Phone Unavailable Primary Care Provider Unavailabl e Encounter Details Date Type Department Care Team (Late st Contact Info) Description 08/13/2023 Telephone [facility] Physicians - Pulmonary Medicine, [facility] [address] [place] [phone] Dong Ruth DO [address] [place] [address]. [address] [place], [place] [id number] Social History Tobacco Use Types Packs/Day Years Used Date Smoking Tobacco: Never Assessed Comments Unknown Sex and Gender Information Value Date Recorded Sex Assigned at Not on file Legal Sex Female 1:23 PM EDT Gender Identity Not on file Sexual Orientation Not on file documented as of this encounter Miscellaneous Notes * Telephone Encounter - Shavon Frey - 08/13/2023 9:57 AM EDT Patient seen in [facility]. Please send any medical records pertaining to pulmonology to her painter spray, Dr Kelsey Cornell. [phone] FX [phone] documented in this encounter Plan of Treatment Not on file documented as of this encounter Visit Diagnoses Not on filedocumented in this encounter
--- OUTSIDE RECORDS SUMMARY | 2025-06-09 21:43 | XMS_ITS | Data Portability ---
Author Organization [place] - [facility] [address] ADMIN Address [address] [place] [address] Care Team Providers Care Mail Sorter And Delivery Name Role Phone LEONEL MCKEON Primary Care Provider LEONEL MCKEON Referring Provider Assessment No assessment recorded. Plan of Treatment Reminders Order Date Submit Date Provider Last Modified By Organization Details Last Modified Time Details Appointments OV NEW 30 2024 02:00P Kenya Martin M.D Not available Not available Not available Lab urinalysi s, dipstick 2024 025 [email or web address] [facility], [address] [place] [address], [address], 04/20/2025 17:04:38 urinalysi s, dipstick 2024 025 [email or web address] 0 [facility], [address] [place] [address], [address], 01/27/2025 15:12:03 Referral home health referral - [facility] nursing and pt -- [place] [address], [address], 04/21/2025 07:14:42 physical therapist referral - Home pt -- [place] now [address] [place], [address], 04/21/2025 07:14:42 cardiolog ist referral - please set up [facility] [email or web address] Angel Chow MD, [address], [place], [address], 03/02/2025 09:03:32 Procedures nebulizer treatment (PROC) - albuterol nebulizer treatment 2024 025 [email or web address] Not available 02/03/2025 07:04:57 Surgeries None recorded. Imaging None recorded. Medication Orders Diflucan 100 mg tablet 2024 025 [facility], [address], [place], [address], 04/20/2025 17:04:47 ketoconaz ole 2 % topical cream 2024 025 [facility], [address], [place], [address], 04/20/2025 17:04:45 Zithromax Z-Danis 250 mg tablet 2024 025 [facility], [address], [place], [address], 03/05/2025 11:46:56 cefdinir 300 mg capsule 2024 025 [facility], [address], [place], [address], 03/05/2025 11:47:07 prednison e 20 mg tablet 2024 025 [facility], [address], [place], [address], 03/05/2025 11:47:14 ceftriaxo ne 1 gram solution for injection 2024 [facility], [address], [place], [address], 01/30/2025 14:01:15 dexametha sone sodium phosphate 4 mg/mL injection solution 2024 025 [facility], [address], [place], [address], 01/30/2025 14:01:17 Patient TargetsNo targets recorded. Patient Instructions Encounter Date Encounter Id Patient Instructions Last Modified By Organization Details Last Modified Time 01/30/2025 [id number] plan 1. Continue on antibiotics till complete. Urine looks clear and yellow so a repeat urinalysis was not completed today but will be on return visit. 2. Keep appointment with urology next week. 3. Recommended that she stay with Dr. Angel Chow since she has followed with him in the past and they are agreeable but they would like to see him in [place] only since she is living with her daughter right now. 4. Referral to pulmonology in [place] as they requested. 5. Skin tear was cleaned and redressed. Skin care measures discussed. 6. Continue to follow with home health, physical and occupational therapies as well. 7. I will see her back in 2 weeks for follow-up, sooner if needed. [email or web address] Not available 01/30/2025 15:06:28 03/05/2025 [id number] plan Recommended that patient go back to the hospital for re-evaluation, admit, and stay for swing bed evaluation. I called [facility] and spoke to the ER provider and he is willing to consider her for this. I spoke to the hospitalist and they were in agreement. I spoke to case management and they are going to check with her insurance for swing bed coverage. Patient and her boyfriend are in agreement with plan. Records from all her recent hospitalizations including records from here were printed to give to patient. I will see her upon discharge. [email or web address] Not available 03/05/2025 13:35:57 04/01/2025 [id number] PLAN 1. I was ab le to get her discharge summary after she had already left. They want for us to continue to watch her skin as well as repeat lab work for an anemia panel when she was placed on iron and we will see her back in 2 weeks to do so. 2. Set up physical therapy and home health services for her. 3. I will see her back in 2 weeks for lab work and recheck, sooner if needed. [email or web address] Not available 04/01/2025 14:41:43 04/20/2025 [id number] plan 1. Discussed the importance of changing her depends often and keeping the area clean and dry. Once she is better we need to give her a nystatin powder for prevention. 2. Started her on Diflucan 100 daily for 14 days. 3. Ketoconazole cream given to apply to the area daily. 4. I will see her back in follow-up in 2 weeks, sooner if necessary. 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 Angel Chow when he is in [place] Referring Physician: [facility], Encounter Date: 01/30/2025 Home Health Referral for Gene lt failure to thrive syndrome [facility] nursing and pt -- [place] Referring Physician: [facility], Encounter Date: 04/01/2025 Physical Therapist Referral for Adult failure to thrive syndrome Home pt -- pt [place] living [place] for now Referring Physician: [facility], Encounter Date: 04/01/2025 Results Created Date Observation Date Name Description Value Unit Range Abnormal Flag Note LastModifiedBy Organization Detail LastModifiedTime 01/28/2001/27/2025 urina lysis , dipst ick Leukocytes (reference range) small Not Available [address], [place], [address], 01/27/2025 14:58:23 01/28/20 25 01/27/2025 urina lysis , dipst ick Nitrite (reference range:) negati ve Not Available [address], [address], 01/27/2025 14:58:23 01/28/20 25 01/27/2025 urina lysis , dipst ick Urobilinogen (reference range) 0.[address] Not Available [address], [address], 01/27/2025 14:58:23 01/28/20 25 01/27/2025 urina lysis , dipst ick Protein (reference range) negati ve Not Available [address], [address], 01/27/2025 14:58:23 01/28/20 25 01/27/2025 urina lysis , dipst ick pH (reference range 5-8.5) 6.5 Not Available [address], [address], 01/27/2025 14:58:23 01/28/20 25 01/27/2025 urina lysis , dipst ick Blood (reference range:) small Not Available [address], [address], 01/27/2025 14:58:23 01/28/20 25 01/27/2025 urina lysis , dipst ick Specific [place] (reference range) 1.010 Not Available [address], [address], 01/27/2025 14:58:23 01/28/20 25 01/27/2025 urina lysis , dipst ick Ketone (reference range) negati ve Not Available [address], [address], 01/27/2025 14:58:23 01/28/20 25 01/27/2025 urina lysis , dipst ick Bilirubin (reference range) negati ve Not Available [address], [address], 01/27/2025 14:58:23 01/28/20 25 01/27/2025 urina lysis , dipst ick Glucose (reference range) negati ve Not Available [address], [address], 01/27/2025 14:58:23 01/28/20 25 01/27/2025 urina lysis , dipst ick Color (reference range: yellow-brown ) Yellow Not Available [address], [address], 01/27/2025 14:58:23 04/20/20 25 04/20/2025 urina lysis , dipst ick Leukocytes (reference range) trace Not Available [address], [address], 04/20/2025 16:01:31 04/20/20 25 04/20/2025 urina lysis , dipst ick Nitrite (reference range:) negati ve Not Available [address], [address], 04/20/2025 16:01:31 04/20/20 25 04/20/2025 urina lysis , dipst ick Urobilinogen (reference range) 0.2 Not Available [address], [address], 04/20/2025 16:01:04/20/2004/20/2025 urina lysis , dipst ick Protein (reference range) negati ve Not Available [address], [address], 04/20/2025 16:01:04/20/2004/20/2025 urina lysis , dipst ick pH (reference range 5-8.5) 6.0 Not Available [address], [address], 04/20/2025 16:01:04/20/2004/20/2025 urina lysis , dipst ick Blood (reference range:) negati ve Not Available [address], [address], 04/20/2025 16:01:04/20/2004/20/2025 urina lysis , dipst ick Specific [place] (reference range) 1.010 Not Available [address], [address], 04/20/2025 16:01:04/20/2004/20/2025 urina lysis , dipst ick Ketone (reference range) negati ve Not Available [address], [address], 04/20/2025 16:01:04/20/2004/20/2025 urina lysis , dipst ick Bilirubin (reference range) negati ve Not Available [address], [address], 04/20/2025 16:01:31 04/20/20 25 04/20/2025 urina lysis , dipst ick Glucose (reference range) negati ve Not Available [address], [place], [address], 04/20/2025 16:01:31 01/01/20 25 01/01/2025 XR, chest No observ ation record ed. [email or web address] Not Available 2024 13:55:19 01/06/20 25 01/06/2025 US, doppl er echoc ardio gram No observ ation record ed. [email or web address] Not Available 2024 13:22:36 03/06/20 25 03/04/2025 MRI, cervi dnay spine , w/o contr ast No observ ation record ed. [email or web address] Not Available 2024 14:48:26 Result Notes None recorded. Problems Name Problem SNOMED Code Status Onset Date Resolution Date Notes Provider Name and Address Organization Details Recorded Time Rheumatoid arthritis 02536691 Active 2021 Leonel Mckeon NP [facility],[address] [place] [address], [address], [place] - [facility] - [place] & [place] 2 14:37:09 Osteoarthri tis 031634965 Active 2021 Leonel Mckeon NP [facility],[address], [place], [address], [place] [facility] [place] & [place] 2 14:37:01 Spinal stenosis 19339262 Active 2021 Leonel Mckeon NP [facility],[address], [place], [address], [place] - [facility] - [place] & [place] 2 14:37:11 Irritable bowel syndrome 79766316 Active 2021 Leonel Mckeon NP [address] [place] [address],[address], [place], [address], [place] [facility] [place] & [place] 2 14:37:03 Essential hypertensio n 51694422 Active 2021 Beatriz jenkins, [place] - [facility] - [place] & [place] 5 10:34:51 Degenerativ e disorder 815979693 Active 2021 Leonel Mckeon NP [facility],[address], [place], [address], [place] [facility] [place] & [place] 2 14:36:43 Peripheral vascular disease 958941046 Active 2021 Leonel Mckeon NP [facility],[address], [place], [address], [place] [facility] [place] & [place] 2 14:37:06 Chronic myelopathy 7134176948368 08 Active 2021 Leonel Mckeon NP [facility],[address], [place], [address], [place] [facility] [place] & [place] 2 14:36:33 Polyneuropa thy 93243144 Active 2021 Leonel Mckeon NP [facility],[address], [place], [address], [place] [facility] [place] 2 14:37:16 Vitamin D deficiency 37670490 Active 2021 Leonel Mckeon NP [facility],[address], [place], [address], [place] [facility] [place] 2 14:37:14 Fatigue 78660040 Active 2021 Hazel jenkins, [place] - [facility] [place] & [place] 2 13:39:17 Carpal tunnel syndrome 58053344 Active 2021 Leonel Mckeon NP [facility],[address], [place], [address], [place] [facility] [place] 2 14:36:31 Chronic obstructive pulmonary disease 95247866 Active 2021 Leonel Mckeon, MYLA [address] [place] [address],[address], [place], [address], [place] [facility] [place] 2 14:36:36 Congestive heart failure 50011346 Active 2021 Leonel Mckeon, MYLA [address] [place] [address],[address], [place], [address], [place] [facility] & [place] 2 14:36:40 Hyperlipide gianna 85593779 Active 2021 Leonel Mckeon, MYLA [address] [place] [address],[address], [place], [address], [place] [facility] [place] 2 14:36:58 Peripheral edema 032353090 Active 2021 Leonel Mckeon NP [address] [place] [address],[address], [place], [address], [place] [facility] [place] 2 14:36:18 Electrolyte imbalance 845616493 Active 2021 eLonel Mckeon NP [address] [place] [address],[address], [place], [address], [place] [facility] [place] 2 16:08:55 Benign hypertensio n 32342082 Active 2021 Hazel Cox null, [place] - [facility] [place] & [place] 2 10:27:16 Cough 14588627 Active 2021 Beatriz Starr null, [place] [facility] [place] 2 13:20:46 Acute exacerbatio n of chronic obstructive pulmonary disease 875991234 Active 2021 ANY SAUCEDO [address] [place] [address],[address], [place], [address], [place] [facility] [place] 5 15:11:28 Candidiasis of mouth 91685613 Active 2021 ANY SAUCEDO [address] [place] [address],[address], [address], [place] [facility] [place] 5 16:55:32 Acute urinary tract infection 896845012 Active 2022 Leonel Mckeon NP [address] [place] [address],[facility] te [address] [place] [address], [address], [place] [facility] [place] 3 09:41:45 Standard chest X-ray abnormal 049264280 Active 2022 Leonel Mckeon NP [address] [place] [address],[facility] te [address] [place] [address], [address], [place] [facility] [place] 3 09:43:34 Dysfunction of bilateral eustachian tubes 6771163414540 100 Active 2022 DIONNE MENDEZ MD [address] [place] [address] Drive, [address], [place], [address], [place] [facility] 3 15:41:50 Thyroid nodule 214608399 Active 2022 Leonel Mckeon NP [address] [place] [address],[facility] te [address] [place] [address], [address], [place] [facility] [place] 3 10:07:23 Mixed hyperlipide gianna 661999538 Active 2022 Leonel Mckeon NP [address] [place] [address],[address] [place] [address], [address], [place] [facility] 3 11:45:13 Abscess of skin of right wrist 6950068503491 9108 Active 2022 Leonel Mckeon NP [address] [place] [address],[facility] te [address] [place] [address], [address], [place] [facility] [place] 3 08:44:25 Pain in throat 422037138 Active 2022 Rosey Saldaña null, [place] [facility] [place] 3 16:49:43 Streptococc al sore throat 30448297 Active 2022 Leonel Mckeon NP [facility],[address], [address], [place] [facility] 3 16:51:20 Pain in throat 819660094 Active 2022 Leonel Mckeon NP [facility],[address], [place], [address], [place] 3 16:51:20 Pain of multiple joints 15848659 Active 2022 Leonel Mckeon NP [facility],[address], [address], [place] 3 13:20:22 Acute pharyngitis 666105078 Active 2022 Leonel Mckeon NP [facility],[address], [address], [place] 3 14:07:29 Oral erythematou s candidiasis 761465478 Active 2022 Leonel Mckeon NP [facility],[address], [address], [place] [facility] 3 14:19:30 Candidiasis of skin 54850497 Active 2022 ANY SAUCEDO [facility],[address], [place], [address], [place] [facility] 5 16:57:02 Gastro-esop hageal reflux disease with esophagitis 502551796 Active 2022 Leonel Mckeon NP [facility],[address], [place], [address], [place] 3 14:24:02 Candidiasis of vagina 61497246 Active 2022 Leonel Mckeon, PREDATORY HUNTER [address] [place] [address],[address], [place], [address], [place] 3 09:25:19 Influenza caused by Influenza B virus 95834812 Active 2023 Leonel Mckeon, PREDATORY HUNTER [address] [place] [address],[address], [place], [address], [place] 4 15:44:42 Blood glucose outside reference range 152518723 Active 2023 Leonel Mckeon, MYLA [address] [place] [address],[address], [address], [place] 4 10:55:01 Conductive hearing loss of right ear 1318197050 Active 2023 BEATRIZ EVANS, JACINDA [address] [place] [address],[address], [address], [place] 4 10:11:05 Gastroesoph ageal reflux disease without esophagitis 629667039 Active 2023 Terry Byrd MD [address] [place] [address],[address], [address], [place] 4 06:36:24 Dysphagia 02257324 Active 2023 Terry Byrd MD [address] [place] [address],[address], [address], [place] 4 09:44:22 Regurgitati on of food 897658886 Active 2023 Terry Byrd MD [address] [place] [address],[address], [address], [place] 4 09:45:04 Folic acid deficiency 450304057 Active 2023 Leonel Mckeon NP [address] [place] [address],[address], [place], [address], [place] 4 09:31:22 Degeneratio n of lumbar interverteb ral disc 47134420 Active 2023 Leonel Mckeon NP [address] [place] [address],[address], [place], [address], [place] 4 09:24:39 Hyponatremi a 33433009 Active 2023 Leonel Mckeon NP [address] [place] [address],[address], [place], [address], [place] 4 09:21:26 Constipatio n 93862496 Active 2023 Leonel Mckeon NP [address] [place] [address],[address], [place], [address], [place] 4 10:16:23 Near syncope 056714252 Active 2023 Leonel Mckeon NP [address] [place] [address],[address], [place], [address], [place] 4 09:53:29 Recurrent falls 742105673 Active 2023 Leonel Mckeon NP [address] [place] [address],[address], [place], [address], [place] 4 09:55:34 Tobacco dependence syndrome 34903712 Active 2023 Terry Byrd MD [address] [place] [address],[address], [place], [address], [place] 4 09:19:07 Congestion of nasal sinus 08137068 Active 2023 Matty jenkins, [place] [facility] 4 14:05:24 Sore throat 865147899 Active 2023 Matty null, [place] [facility] & [place] 4 14:05:53 Gastroesoph ageal reflux disease 682642565 Active 2023 Leonel Mckeon NP [address] [place] [address],[address] [place] [address], [address], [place] [facility] & [place] 4 14:46:41 Seasonal allergic rhinitis 005420569 Active 2023 Leonel Mckeon NP [address] [place] [address],[address] [place] [address], [address], [place] 4 10:54:01 Right lower zone pneumonia 430176851 Active 2023 ANY SAUCEDO [address] [place] [address],[address], [address], [place] 4 16:25:51 Acute bronchitis 12626530 Active 2024 Leonel Mckeon NP [address] [place] [address],[address], [place], [address], [place] 5 16:25:40 Anemia 865336893 Active 2024 Leonel Mckeon NP [address] [place] [address],[address], [address], [place] 5 13:56:28 Hypoxemia 402596410 Active 2024 ANY SAUCEDO [address] [place] [address],[address], [address], [place] [facility] & [place] 5 14:43:58 Amnesia 15576395 Active 2024 ANY SAUCEDO [address], [place], [address], [place] 5 14:44:41 Open wound of left upper limb Active 2024 ANY SAUCEDO [facility] [address], [place], [address], [place] 5 14:57:33 Dyspnea 659866696 Active 2024 ANY SAUCEDO [facility] [address], [place], [address], [place] 5 14:57:55 Chronic urinary tract infection 281824509 Active 2024 ANY SAUCEDO [facility] [address], [place], [address], [place] 5 14:58:17 Pneumonia 870230198 Active 2024 ANY SAUCEDO [facility] [address], [place], [address], [place] 5 15:11:11 Retention of urine 374382745 Active 2024 Leonel Mckeon NP [facility],[address], [place], [address], [place] 5 15:03:27 Adult failure to thrive syndrome 837214072 Active 2024 Leonel Mckeon NP [facility],[address], [place], [address], [place] [facility] & [place] 5 15:03:44 Dysuria 68987339 Active 2024 Leonel Mckeon NP [facility],[address], [place], [address], [place] [facility] & [place] 5 15:48:30 Problem Notes None recorded. Procedures Surgical History Date Name Laterality Status Provider Name and Address Organization Details Recorded Time 02/29/20 24 Medicare Annual Wellness Visit Health Risk Assessment completed Rosey Sandy [facility] & [place] 02/29/2024 09:11:32 08/15/20 23 Removal of foreign body from ear canal completed DIONNE MENDEZ MD [address] [place] [address], [address], [place], [address], [facility] & [place] 08/15/2023 09:51:17 05/31/20 23 EMG/ Nerve Conduction Study completed Milo Joseph M.D [address] [place] [address], [address], [place], [address], [facility] & [place] 06/04/2023 11:28:10 01/20/20 23 Tympanostomy with placement of tube completed DIONNE MENDEZ MD [address] [place] [address], [address], [place], [address], [facility] & [place] 01/19/2023 16:05:29 08/08/20 22 Excision and closure completed Sudheer Oro MD [address] [place] [address],[address], [place], [address], [facility] & [place] 08/08/2022 10:07:19 11/12/19 19 Joint Replacement completed Violeta Shetty [facility] & [place] 08/03/2022 09:24:22 lumbar spinal fusion completed Not Available [facility] 07/31/2022 15:53:39 prosthetic total arthroplasty of right shoulder completed Not Available [facility] 07/31/2022 15:53:39 incision and drainage of abscess completed Hazel Cox [facility] & [place] 07/31/2022 16:17:54 Imaging Results None recorded. Procedure [...] 1 TABLET BY MOUTH ONCE DAILY FOR 14 DAYS active Not Available Not Available No t Available promethazin e-DM 6.25 mg-15 mg/5 mL oral syrup Take 5 mL every 4 hours by oral route. 12/02 completed Not Available Not Available Not Available nystatin 100,000 unit/mL oral suspension 5 ML 4 TIMES DAILY FOR 10 DAYS 03/05 completed Not Available Not Available Not Available potassium chloride ER 10 mEq capsule,ext [...] DAY ON DAY 2 THROUGH DAY 5 03/05 completed Not Available Not Available Not Available fluconazole 150 mg tablet TAKE ONE [...] DAYS THEN 1 TABLET FOR 2 DAYS 03/05 completed Not Available Not Available Not Available gabapentin 400 mg capsule TAKE 2 [...] CREAM TOPICALLY TO AFFECTED AREA TWICE DAILY 04/20 completed Not Available Not Available Not Available lisinopril 10 mg tablet TAKE 1 [...] mg tablet,exte nded release 24 hr TAKE 1/2 (ONE-HALF ) TABLET BY MOUTH ONCE DAILY active Not Available Not Available No t Available ergocalcife rol (vitamin D2) 1,250 mcg (50,000 unit) capsule TAKE 1 CAPSULE BY MOUTH ONCE A WEEK active Not Available Not Available No t Available nystatin 100,000 unit/gram topical powder APPLY POWDER TOPICALLY TO AFFECTED AREA TWICE DAILY 04/20 completed Not Available Not Available Not Available dexamethaso ne sodium phosphate 4 mg/mL [...] Not Available Not Available No t Available ketoconazol e 2 % topical cream APPLY 2 GRAMS TOPICALLY ONCE DAILY TO GROIN AREA active Not Available Not Available No t Available cefdinir 300 mg capsule TAKE 1 CAPSULE BY MOUTH EVERY 12 HOURS 03/05 completed Not Available Not Available Not Available fluticasone propionate 50 mcg/actuati on nasal spray,suspe nsion USE 1 SPRAY(S) IN EACH NOSTRIL ONCE DAILY 04/20 completed Not Available Not Available Not Available doxycycline hyclate 100 mg tablet TAKE 1 TABLET BY MOUTH EVERY 12 HOURS 12/03 completed Not Available Not Available Not Available metoclopram fredy 10 mg tablet TAKE 1 TABLET BY MOUTH TWICE DAILY 08/29 completed Not Available Not Available Not Available amoxicillin 500 mg-rochelle vidales clavulanate 125 mg tablet TAKE ONE TABLET [...] Take as directed by Dr[facility] ,1/2 in the evening on 01/03 half on 01/04 morning 01/27 completed Not Available Not Available Not Available Bactrim DS 08/18 completed Not Available Not Available Not Available sodium chloride 1,000 mg soluble tablet TAKE 1 TABLET BY MOUTH ONCE [...] Avai lable Entresto 24 mg-26 mg tablet Take 1 tablet by mouth twice daily 2024 active Not Available Not Available Not Avai lable Trelegy Ellipta 100 mcg-62.5 mcg-25 mcg powder for inhalation INHALE 1 PUFF ONCE DAILY active Not Available Not Available No t Available Trelegy Ellipta 200 mcg-62.5 mcg-25 mcg powder for inhalation INHALE 1 PUFF ONCE DAILY active Not Available Not Available No t Available Vitals Date Recorded Body height Body mass index (BMI) Body weight Body temperature Oxygen saturation Oxygen saturation in Arterial blood by Pulse oximetry Respiratory rate Heart rate Systolic And Diastolic Provider Name and Address Organization Details Last Updated DateTime 5 165.1 cm 16.3 kg/m2 95776.4 5 g 97.1 [degF] 85 % 85 % 16 /min 85 /min 124/74 mm[Hg] Beatirz [facility] & [place] 5 14:14:07 Date Recorded Body height Body mass index (BMI) Body weight Body temperature Oxygen saturation Oxygen saturation in Arterial blood by Pulse oximetry Respiratory rate Heart rate Systolic And Diastolic Provider Name and Address Organization Details Last Updated DateTime 5 165.1 cm 16.3 kg/m2 78663.4 5 g 96.9 [degF] 92 % 92 % 16 /min 84 /min 108/70 mm[Hg] Beatriz [facility] [place] [facility] [place] 5 14:07:04 Date Recorded Body height Body mass index (BMI) Body weight Body temperature Oxygen saturation Oxygen saturation in Arterial blood by Pulse oximetry Heart rate Systolic And Diastolic Provider Name and Address Organization Details Last Updated DateTime 5 165.1 cm 17.4 kg/m2 59197.7 1 g 97.3 [degF] 93 % 93 % 87 /min 110/72 mm[Hg] Lyric Cronin [facility] & [place] 5 10:30:26 Date Recorded Body height Body mass index (BMI) Body weight Body temperature Oxygen saturation Oxygen saturation in Arterial blood by Pulse oximetry Heart rate Systolic And Diastolic Provider Name and Address Organization Details Last Updated DateTime 5 165.1 cm 17.3 kg/m2 17047.6 1 g 97.1 [degF] 93 % 93 % 88 /min 116/70 mm[Hg] Rosey MORAN [facility] & [place] 5 13:36:30 Date Recorded Body height Body mass index (BMI) Body weight Oxygen saturation Oxygen saturation in Arterial blood by Pulse oximetry Heart rate Systolic And Diastolic Provider Name and Address Organization Details Last Updated DateTime 5 165.1 cm 17.3 kg/m2 27026.6 1 g 99 % 99 % 90 /min 120/74 mm[Hg] Rosey MORAN [facility] & [place] 5 15:45:50 Social History Question Answer Notes LastModified by Organizat ion Details LastModified Time Tobacco Smoking Status Current Every Day Smoker [facility] [place] 07/26/2022 13:42:00 Do You Have An Advance Directive? No Information not available 07/31/2022 Are You Blind Or Do You Have Difficulty Seeing? No Information not available 07/31/2022 What Is Your Level Of Caffeine Consumption? Occasional [email or web address] Information not available 12/21/2023 What Type Of Diet Are You Following? REGULAR [email or web address] Information not available 03/21/2024 What Was The Date Of Your Most Recent Tobacco Screening? 07/31/2022 Information not available 07/31/2022 Are You Passively Exposed To Smoke? No Information not available 07/31/2022 How Much Tobacco Do You Smoke? 1 PPD Information not available 07/31/2022 How Many Years Have You Smoked Tobacco? 20 Information not available 07/31/2022 Sex: Unknown Functional Status Question Answer Note LastModified by Organizat ion Details LastModified Time Do you use any illicit or recreational drugs? No Information not available 07/31/2022 Do you or have you ever used any other forms of tobacco or nicotine? No [email or web address] Information not available 03/21/2024 What is your level of alcohol consumption? None Information not available 07/31/2022 Do you or have you ever used smokeless tobacco? Never used smokeless tobacco Information not available 07/31/2022 What is your exercise level? None Information not available 07/31/2022 Mental Status Question Answer Note LastModified by Organization D etails LastModified Time Do you feel stressed (tense, restless, nervous, or anxious, or unable to sleep at night)? [id number] [facility] Information not available 07/31/2022 Family History Relationship Description Onset Age of this Age Resolved Age Notes LastModified by Organization Details LastModified Time Mother Malignant neoplasm of brain 61 [email or web address] Not available 2024 15:42:07 Father Kidney disease 63 [email or web address] Not available 08/2024 09:33:16 Medical History Condition Response Coronary Artery Disease N None N Gout N Colon Cancer N Kidney Stones N Hyperthyroidism N Emphysema N COPD Y Depression N Glaucoma N Hypothyroidism N Diverticulitis/Diverticulosis N Anesthesia Complications N Anxiety Disorder N Muscle, Joint, or Bone Problems Y Arthritis Y Hearing Loss N Acid Reflux (GERD) N Cancer N Stroke N High Cholesterol N Liver Disease N Fibromyalgia N Headaches N Speech Delay N Kidney Disease N Allergies/Hayfever N Heart Problems N Heart Conditions N Migraines N Thyroid Problems Y Developmental Delay N Osteoporosis/Osteopenia N Anemia N Immune System Disorder N Colon Polyps N Heart Attack (ND) N Diabetes N Bleeding Disorder N Seizures/Epilepsy [...] 50 mcg/0.25mL dose 1 completed Hazel Cox [facility] [place] [facility] & [place] 08/28/2022 10:26:58 COVID-19, mRNA, LNP-S, PF, 100 mcg/0.5mL dose or 50 mcg/0.25mL dose 1 completed Rosey Saldaña [facility], [place] - [facility]NT [facility] & [place] 10/15/2023 13:59:14 COVID-19, mRNA, LNP-S, PF, 100 mcg/0.5mL dose or 50 mcg/0.25mL dose 1 completed Rosey Saldaña null, JUAN - LPNT [facility] & [place] 10/15/2023 13:59:14 COVID-19, mRNA, LNP-S, PF, 100 mcg/0.5mL dose or 50 mcg/0.25mL dose 1 completed Hazel Cox null, JUAN - LPNT [facility] & [place] 08/28/2022 10:26:58 Td (adult), 2 Lf tetanus toxoid, preservative free, adsorbed 8 completed Hazel jenkins, JUAN - LPNT [facility] & [place] 08/28/2022 10:26:58 Past Encounters Encounter ID Performer Location Encounter Start Date Encounter Closed Date Diagnosis/Indication Diagnosis SNOMED-CT Code Diagnosis ICD10 Code Diagnosis Note [id number] Leonel Mckeon NP [address] [address] 07/26/2022 13:33:20 07/26/2022 15:09:08 Cellulitis of left upper limb 5666901878 7664825 L03.114 Congestive heart failure 16752639 I50.9 Essential hypertension 70806529 I10 Chronic ob structive pulmonary disease 81397132 J44.9 [id number] Yun Mensah DO [address] [address] 07/27/2022 13:43:41 07/27/2022 13:44:06 Cellulitis of left lower limb 5367600528 6743838 L03.116 [id number] Leonel Mckeon NP [address] [address] 07/31/2022 15:45:35 07/31/2022 16:49:30 Cellulitis of left upper limb 6066290408 2128463 L03.114 Chronic ob structive pulmonary disease 83766726 J44.9 Abscess of olecranon bursa of left elbow 6433847873 43967 M71.022 [id number] MD STELLA Bnods [place] [address] 08/03/2022 08:35:54 08/03/2022 10:38:23 Postoperative care 913453481 Z48.89 her wound is without signs of [...] surgeries could be done together next week. [id number] Mo Cortez MD Adenike lange [facility] [address] [place] [address] 08/08/2022 09:28:23 08/08/2022 10:37:07 Infection of olecranon bursa of left elbow 9316290851 952520 M71.122 her wound is appropriat anatoly healing [...] patient the importance of compliance with postoperat rosario rehabilita tion and restrictio ns. We have [...] verbalizes understand ing and wishes to proceed. [id number] MD STELLA Guerin [facility] [address] [place] [address] [address] [place] [address] 08/08/2022 08:06:18 08/08/2022 09:26:44 Abscess of breast 26557143 N61.1 Incision and drainage. Will plan for wet-to-dry saline dressing changes. She currently is on vancomycin and Bactrim. Mass of left breast 1224 038987 1127643 N63.20 biopsy pending Tobacco de pendence syndrome 39341018 F17.200 recommend abstinence Chronic ob structive pulmonary disease 73026044 J44.9 Open wound of elbow 1256 99934 S51.002D the patient is being followed by Dr. Mo Cortez. [id number] Leonel Mckeon NP [place] [address] 9 08/14/2022 13:51:03 08/14/2022 14:46:40 Abscess of olecranon bursa of left elbow 8886644964 64536 M71.022 Essential hypertension 51828310 I10 Peripheral edema 6886684 00 R60.9 [id number] Leonel Mckeon NP [place] [address] 08/17/2022 15:17:28 08/17/2022 16:19:40 Congestive heart failure 70452026 I50.9 Electrolyte imbalance 10 5000720 E87.8 [id number] MD STELLA Bonds [facility] [address] [place] [address] 08/18/2022 08:49:20 08/18/2022 09:32:58 Infection of olecranon bursa of left elbow 9769367223 363682 M71.122 [id number] MD STELLA Bonds [facility] [address] [place] [address] 08/23/2022 14:11:25 08/23/2022 15:58:37 Infection of olecranon bursa of left elbow 9323617104 591628 M71.122 [id number] MD STELLA Guerin General Surgery [address] [place] [address],Lynnette te [address] [place] [address] 08/22/2022 10:18:01 08/22/2022 10:27:21 Change of dressing 54415522 Z48.01 dry dressing as needed [id number] Leonel Mckeon NP [facility] [address] [address] 08/28/2022 10:11:07 08/28/2022 11:29:45 Benign hypertension 35068576 I10 Chronic ob structive pulmonary disease 10427616 J44.9 Essential hypertension 82279905 I10 Congestive heart failure 97392231 I50.9 Degenerative disorder 36 6787171 R69 [id number] YESSY BUENO NP [facility] [address] [place], [place] [address] 09/01/2022 09:19:37 09/01/2022 11:07:22 Infection of olecranon bursa of left elbow 2111957758 779828 M71.122 Postoperative care 25313 9007 Z48.89 [id number] MD STELLA Bonds [facility] [address] [place] [address] 09/06/2022 08:54:50 09/06/2022 10:07:31 Infection of olecranon bursa of left elbow 6496831824 074913 M71.122 her wound is appropriat anatoly healing [...] patient the importance of compliance with postoperat rosario rehabilita tion and restrictio ns. We have [...] verbalizes understand ing and wishes to proceed. [id number] MD STELLA Bonds [place] [address] 9 09/13/2022 10:50:59 09/13/2022 12:02:33 Infection of olecranon bursa of right elbow 6640231634 072643 M71.121 Infection of olecranon bursa of left elbow 1997691992 775050 M71.122 [id number] MD STELLA Bonds [place] [address] 9 09/20/2022 10:48:22 09/20/2022 12:45:09 Infection of olecranon bursa of left elbow 7175601932 033689 M71.122 Infection of olecranon bursa of right elbow 6935996118 429448 M71.121 [id number] Leonel Mckeon NP [place] [address]772 [place] [address] 09/25/2022 10:22:24 09/25/2022 11:07:41 Chronic obstructive pulmonary disease 34413282 J44.9 Essential hypertension 26259528 I10 Congestive heart failure 81243200 I50.9 [id number] MD STELLA Bonds [place] [address] 10/04/2022 10:39:21 10/04/2022 12:20:23 Dehiscence of surgical wound 67863023 T81.30XA [id number] [facility]ez [facility] [place] [address] 10/11/2022 08:52:25 10/11/2022 10:14:33 Infection of olecranon bursa of left elbow 1676557866 802573 M71.122 [id number] [facility] [address] [employer] [place] [address] 10/10/2022 13:17:10 10/10/2022 14:37:54 Cough 64528738 R05.9 Acute exac erbation of chronic obstructive pulmonary disease 427824385 J44.1 [id number] Mo Cortez [facility] [address] [address] 10/19/2022 09:53:32 10/19/2022 11:37:19 Infection of olecranon bursa of left elbow 3907127638 508364 M71.122 [id number] [place]LA [place] [address] [address] [employer] [place] [address] 10/17/2022 09:48:04 10/17/2022 10:13:07 Chronic obstructive pulmonary disease 01620107 J44.9 Essential hypertension 84911123 I10 [id number] MYLA [facility] [place] [address] [address] [employer] [facility] [place] [address] 10/26/2022 09:56:48 10/26/2022 10:57:00 Cough 65933707 R05.9 Acute exac erbation of chronic obstructive pulmonary disease 751704334 J44.1 [id number] Leonel Mckeon NP [place] [address] [address] [employer] [facility] [place] [address] 11/01/2022 14:46:56 11/01/2022 14:59:54 Acute exacerbation of chronic obstructive pulmonary disease 280718283 J44.1 Chronic ob structive pulmonary disease 55601971 J44.9 Essential hypertension 05861770 I10 [id number] Leonel Mckeon NP [facility] [address] [place] [address] 11/14/2022 08:48:42 11/14/2022 09:46:46 Congestive heart failure 74952429 I50.9 Benign hypertension 1072 5009 I10 Chronic ob structive pulmonary disease 23754338 J44.9 Polyneuropathy 12685660 G62.9 [id number] Yun [place] [address] [place] [address] 12/18/2022 14:44:32 12/18/2022 16:22:18 Congestive heart failure 22256575 I50.9 Essential hypertension 36437035 I10 Chronic ob structive pulmonary disease 62975507 J44.9 [id number] Yun DO [place] [address] [facility] [place] [address] 12/26/2022 08:58:26 12/26/2022 10:03:19 Congestive heart failure 24296338 I50.9 Essential hypertension 30036220 I10 Chronic ob structive pulmonary disease 74171350 J44.9 Acute urin elizabeth tract infection 120742750 N39.0 Standard c hest X-ray abnormal 353147731 R93.89 [id number] Yun Mensah [place] [address] [facility] [place] [address] 01/09/2023 09:13:31 01/09/2023 09:52:15 Chronic obstructive pulmonary disease 30909600 J44.9 Congestive heart failure 53024006 I50.9 [id number] DIONNE MENDEZ MD [facility] [address] [facility] [place] [address] 01/15/2023 15:08:54 01/15/2023 15:38:45 Dysfunction of bilateral eustachian tubes 5869444502 123919 H69.93 - Discussed diagnosis of obstructiv e eustachian tube dysfunctio n and its role in causing pain in the ears while undergoing HBO therapy - Treatment options include observatio n, medical therapy (flonase BID, zyrtec daily, ear popping (self insufflati on, otovent), myringotom y with PE tubes, balloon dilation of eustachian tube. - Bilateral myringotom y with tympanosto my tube placement was lilliana loza. Risks, benefits, and alternativ es were explained to the patient. Surgical risks include bleeding, infection, pain, hearing loss, persistent tympanic membrane perforatio n. She would like to think about it before proceeding .- She is currently scheduled to come back on Sunday to have the tubes placed in office in order to prevent further delay in treatment [id number] DIONNE MENDEZ MD [facility] [address] [facility] [place] [address] 01/19/2023 15:15:24 01/19/2023 15:51:22 Dysfunction of bilateral eustachian tubes 8879639528 110305 H69.93 - Patient with issues with ETD while undergoing HBO therapy- Bilateral tympanosto my tubes placed in office today- Ofloxacin drops, 5 drops BID x 5 days [id number] Yun Mensah DO [facility] [address] [facility] [place] [address] 01/30/2023 14:31:00 01/30/2023 15:03:09 Chronic obstructive pulmonary disease 08220186 J44.9 Congestive heart failure 99346826 I50.9 [id number] DIONNE MENDEZ MD [facility] [address] [place] [facility] [employer] [address] 02/16/2023 15:25:33 02/16/2023 15:48:20 Dysfunction of bilateral eustachian tubes 8441726885 109233 H69.93 - Patient with issues with ETD while undergoing HBO therapy- Tubes are in place and patent- Return to clinic in 6 months [id number] Yun Mensah DO [facility] [address] [place] [address] [place] [address] 02/21/2023 14:43:31 02/21/2023 15:40:11 Cough 04105436 R05.9 Acute exac erbation of chronic obstructive pulmonary disease 114203628 J44.1 [id number] Yun Mensah DO [place] [address] [address] [facility] [place] [address] 02/28/2023 14:54:05 02/28/2023 15:32:05 Essential hypertension 16130631 I10 Congestive heart failure 28086748 I50.9 Chronic ob structive pulmonary disease 99587023 J44.9 Hyperlipidemia 54498103 E78.5 Vitamin D deficiency 347 90028 E55.9 Fatigue 20192741 R53.83 [id number] Yun Mensah DO [place] [address] [facility] [place] [address] 03/20/2023 09:09:45 03/20/2023 09:57:27 Congestive heart failure 04093483 I50.9 Polyneuropathy 53879212 G62.9 Chronic ob structive pulmonary disease 36356108 J44.9 Hyperlipidemia 74282244 E78.5 [id number] DO [place] [address] [address] [facility] [place] [address] 03/28/2023 09:43:43 03/28/2023 10:28:49 Acute exacerbation of chronic obstructive pulmonary disease 333292361 J44.1 [id number] Yun Mensah DO [place] [address] [address] [facility] [place] [address] 03/29/2023 14:32:59 03/29/2023 15:16:04 Acute exacerbation of chronic obstructive pulmonary disease 073873519 J44.1 [id number] Yun Mensah [place] [address] [address] [facility] [place] [address] 04/03/2023 14:37:32 04/03/2023 15:25:08 Acute exacerbation of chronic obstructive pulmonary disease 533288062 J44.1 [id number] DO Babar [place] [address] [address] A[address] [place] [address] 05/22/2023 09:22:44 05/22/2023 10:23:52 Thyroid nodule 795770779 E04.1 Essential hypertension 40143793 I10 Hyperlipidemia 16417534 E78.5 Vitamin D deficiency 347 22834 E55.9 Fatigue 66123592 R53.83 [id number] Milo Joseph M.D [facility] [address],[facility] [address] [place] [address] 05/31/2023 09:50:16 05/31/2023 10:36:11 Bilateral carpal tunnel syndrome 7983690880 6766842 G56.03 Numbness of hand 0652398 04 R20.0 Sensory disorder 0624668 8 R20.8 [id number] DO [place]ar [place] [address] [address] SPIVEY [facility] [place] [address] 06/04/2023 10:53:34 06/04/2023 11:47:37 Congestive heart failure 76862846 I50.9 Benign hypertension 1072 5009 I10 Electrolyte imbalance 10 7152201 E87.8 Mixed hyperlipidemia 267 732563 E78.2 [id number] DO [place]ar [place] [address] [address] [facility] [place] [address] 06/20/2023 15:07:14 06/20/2023 15:37:59 Polyneuropathy 47127537 G62.9 Benign hypertension 1072 5009 I10 [id number] DO [place]ar [place] [address] [address] [facility] [place] [address] 07/18/2023 08:11:06 07/18/2023 08:45:20 Abscess of skin of right wrist 0120412266 2386697 L02.413 [id number] DO [place] [address] [address] [facility] [place] [address] 07/23/2023 16:02:25 07/23/2023 16:22:35 Abscess of skin of right wrist 5015313690 4786303 L02.413 [id number] Yun Mensah DO [place] [address] [place] [address] 07/30/2023 09:14:47 07/30/2023 09:31:25 Abscess of skin of right wrist 4963029306 0257257 L02.413 [id number] DIONNE MENDEZ MD [facility] [address], [place] [address] 08/15/2023 09:17:05 08/15/2023 09:48:09 Dysfunction of bilateral eustachian tubes 5827602093 753290 H69.93 - Bilateral tympanosto my tubes extruded- Right tympanosto my tube removed from the EAC in office today- Right TM still with perforatio n, would expect this to close on it own now that tube is out- Start flonase to help with ETD- Return to clinic in 6 months [id number] Viktor Barth MD [place] [address] [address] [facility] [place] [address] 08/24/2023 15:23:33 08/24/2023 16:13:58 Cough 75479263 R05.9 Acute exac erbation of chronic obstructive pulmonary disease 068173773 J44.1 [id number] Viktor Barth MD [place] [address] [address] [facility] [place] [address] 08/27/2023 16:11:01 08/27/2023 16:52:44 Pain in throat 796028524 R07.0 Streptococ dany sore throat 85339458 J02.0 [id number] Viktor Barth MD [place] [address] [place] [address] 08/31/2023 13:06:35 08/31/2023 13:29:05 Pain of multiple joints 43959366 M25.50 [id number] Viktor Barth MD [place] [address] [place] [address] 09/04/2023 15:48:11 09/04/2023 16:35:17 Cough 71163256 R05.9 Acute exac erbation of chronic obstructive pulmonary disease 435162564 J44.1 Streptococ dany sore throat 83839573 J02.0 Congestive heart failure 38566910 I50.9 [id number] Viktor Barth MD [place] [address] 09/10/2023 14:46:50 09/10/2023 15:51:56 Chronic obstructive pulmonary disease 91170774 J44.9 Fatigue 81102211 R53.83 Congestive heart failure 52289615 I50.9 [id number] Viktor Barth MD [place] [address] 09/14/2023 13:46:06 09/14/2023 14:25:33 Chronic obstructive pulmonary disease 30584664 J44.9 Acute pharyngitis 779943 003 J02.9 Oral eryth ematous candidiasis 906950654 B37.0 [id number] Viktor Barth MD [place] [address] [place] [address] 09/17/2023 13:07:09 09/17/2023 13:28:39 Acute pharyngitis 193975309 J02.9 Acute exac erbation of chronic obstructive pulmonary disease 795799487 J44.1 Rheumatoid arthritis 698 52284 M06.9 [id number] Viktor Barth MD [place] [address] [place] [address] 09/24/2023 14:22:09 09/24/2023 14:53:10 Acute pharyngitis 360718395 J02.9 Chronic ob structive pulmonary disease 19954785 J44.9 [id number] Brady Alejo MD [address] [address] 10/01/2023 11:04:40 10/01/2023 11:41:25 Gastroesophageal reflux disease 588428065 K21.9 [id number] Viktor Barth MD [place] [address] [place] [address] 10/08/2023 13:12:22 10/08/2023 14:23:49 Cough 26296591 R05.9 Candidiasis of skin 4988 3006 B37.2 Acute exac erbation of chronic obstructive pulmonary disease 515608992 J44.1 Gastro-eso phageal reflux disease with esophagitis 843463584 K21.00 [id number] Viktor Barth MD [address] [address] 10/15/2023 13:49:08 10/15/2023 14:21:52 Benign hypertension 03878343 I10 Acute exac erbation of chronic obstructive pulmonary disease 329693901 J44.1 [id number] Viktor Barth MD [place] [address] [place] [address] 10/16/2023 15:00:42 10/16/2023 15:31:00 Acute exacerbation of chronic obstructive pulmonary disease 386321178 J44.1 [id number] Viktor Barth MD [place] [address] [place] [address] 10/17/2023 14:44:04 10/17/2023 15:34:45 Acute exacerbation of chronic obstructive pulmonary disease 176270992 J44.1 [id number] Viktor Barth MD [place] [address] [place] [address] 10/24/2023 08:48:35 10/24/2023 09:24:40 Chronic obstructive pulmonary disease 30465359 J44.9 Congestive heart failure 98486527 I50.9 Candidiasis of vagina 72 822631 B37.31 [id number] Brady Alejo MD [address] [address] 10/29/2023 11:11:13 10/29/2023 11:23:42 Gastroesophageal reflux disease 977441481 K21.9 [id number] Viktor Barth MD [address] [address] 10/29/2023 14:26:13 10/29/2023 14:54:29 Chronic obstructive pulmonary disease 93175031 J44.9 Congestive heart failure 98056982 I50.9 Benign hypertension 1072 5009 I10 [id number] Viktor Barth MD [address] [address] 12/11/2023 14:58:03 12/11/2023 15:55:11 Cough 91704178 R05.9 Influenza caused by Influenza B virus 46137672 J10.1 Acute exac erbation of chronic obstructive pulmonary disease 555362944 J44.1 [id number] Viktor Barth MD [address] [address] 12/12/2023 14:48:37 12/12/2023 15:16:07 Acute exacerbation of chronic obstructive pulmonary disease 369145144 J44.1 Influenza caused by Influenza B virus 71763245 J10.1 Congestive heart failure 43746647 I50.9 Benign hypertension 1072 5009 I10 Gastroesop hageal reflux disease 997393801 K21.9 [id number] Viktor Barth MD [address] [address] 12/21/2023 10:01:56 12/21/2023 11:01:28 Fatigue 95574814 R53.83 Chronic ob structive pulmonary disease 54924017 J44.9 Congestive heart failure 89222003 I50.9 Essential hypertension 55529697 I10 Hyperlipidemia 43295476 E78.5 Vitamin D deficiency 347 47914 E55.9 Blood gluc ose outside reference range 406081770 R73.09 [id number] Brady Alejo MD [facility] [address] [place] [address] 01/28/2024 09:49:07 01/28/2024 10:22:18 Tinnitus 71140612 H93.19 Perforatio n of right tympanic membrane 6709809121 325979 H72.91 Gastroesop hageal reflux disease 630517467 K21.9 Impacted c erumen in right ear 0896881219 548058 H61.21 [id number] Brady Alejo MD [address] [place] [address] 03/07/2024 09:27:55 03/07/2024 09:47:39 Tinnitus 18751980 H93.19 Perforatio n of right tympanic membrane 5449039105 960501 H72.91 Gastroesop hageal reflux disease 549332887 K21.9 Impacted c erumen in right ear 0984668163 385722 H61.21 Conductive hearing loss 90415576 H90.2 [id number] Viktor Barth MD [facility] [address] [address] 02/29/2024 08:37:20 02/29/2024 09:35:39 Adult health examination 363495637 Z00.00 Chronic ob structive pulmonary disease 88737896 J44.9 Congestive heart failure 71204517 I50.9 Rheumatoid arthritis 698 22160 M06.9 Screening mammography of bilateral breasts 8921761689 90690 Z12.31 Screening for malignant neoplasm of colon 039727200 Z12.11 [id number] JACINDA STOCKTON [address] YANN [address] [place] [address] 03/07/2024 09:26:08 03/07/2024 09:39:03 Conductive hearing loss of right ear 4829474777 H90.2 [id number] Terry Byrd MD [facility] [address] [place] [address],[address] [place] [address] 03/21/2024 09:20:32 03/21/2024 10:01:26 Screening for malignant neoplasm of colon 318788783 Z12.11 Age-approp riate for screening, schedule colonoscop y Dysphagia 11991468 R13.1 0 solid food dysphagia schedule EGD for evaluation Regurgitation of food 10 6297014 R19.8 possibly is a reflux related phenomenon , continue PPI therapy, move the patient's proton pump inhibitor to the optimal timing and further recommenda tion will follow [id number] Viktor Barth MD [address] [address] 03/28/2024 09:09:56 03/28/2024 09:50:44 Essential hypertension 77568941 I10 Hyperlipidemia 94504095 E78.5 Vitamin D deficiency 347 04644 E55.9 Folic acid deficiency 19 7511541 E53.8 Fatigue 37720646 R53.83 Chronic ob structive pulmonary disease 45327014 J44.9 Spinal stenosis 35777356 M48.00 [id number] JACINDA STOCKTON ENT[address] [place] [address] 04/23/2024 09:23:14 04/23/2024 09:38:13 Conductive hearing loss of right ear 2154386794 H90.2 [id number] Viktor Barth MD [address] [address] 06/03/2024 08:59:43 06/03/2024 09:19:59 Benign hypertension 96114315 I10 Gastroesop hageal reflux disease 540048494 K21.9 Chronic ob structive pulmonary disease 79057433 J44.9 Degenerati on of lumbar intervertebral disc 21565872 M51.36 Screening for malignant neoplasm of colon 964912694 Z12.11 [id number] Viktor Barth MD [address] [address] 07/03/2024 09:05:26 07/03/2024 09:47:55 Hyponatremia 66236735 E87.1 [id number] JACINDA STOCKTON ENT[address] [place] [address] 07/04/2024 10:50:43 07/04/2024 11:16:18 Conductive hearing loss of right ear 4644196059 H90.2 [id number] Viktor Barth MD [address] [address] 07/07/2024 08:30:33 07/07/2024 08:45:03 Hyponatremia 68407895 E87.1 [id number] Viktor Barth MD [address] [address] 07/17/2024 09:42:49 07/17/2024 10:14:59 Spinal stenosis 44977865 M48.00 Peripheral edema 0359710 00 R60.9 Constipation 32746612 K5 9.00 [id number] Viktor Barth MD [address] [address] 07/21/2024 09:08:46 07/21/2024 10:11:10 Essential hypertension 39977681 I10 Peripheral edema 8818332 00 R60.9 Constipation 19012528 K5 9.00 Degenerati on of lumbar intervertebral disc 75516178 M51.36 Near syncope 383317518 R 55 Recurrent falls 34185909 2 R29.6 [id number] Viktor Barth MD [address] [address] 08/01/2024 08:13:51 08/01/2024 08:43:04 Dysphagia 71319114 R13.10 [id number] Terry Byrd MD [facility] [address] [facility],[address] [address] 08/29/2024 08:41:38 08/29/2024 09:24:37 Screening for malignant neoplasm of colon 391648247 Z12.11 Age-approp riate for screening, schedule colonoscop y Dysphagia 59297642 R13.1 0 solid food dysphagia schedule EGD for evaluation Gastroesop hageal reflux disease without esophagitis 089666486 K21.9 Ongoing reflux symptomato logy, continue current PPI therapy assess endoscopic picture at EGD. Tobacco de pendence syndrome 74300558 F17.676 [id number] Viktor Barth MD [address] [address] 09/09/2024 15:46:22 09/09/2024 16:33:26 Thyroid nodule 876279702 E04.1 Chronic ob structive pulmonary disease 70318188 J44.9 [id number] Viktor Barth MD [address] [address] 09/16/2024 13:49:49 09/16/2024 14:50:31 Congestion of nasal sinus 83463212 R09.81 Sore throat 306333388 J0 2.9 Benign hypertension 1072 5009 I10 Gastroesop hageal reflux disease 259354404 K21.9 Acute exac erbation of chronic obstructive pulmonary disease 972299458 J44.1 Osteoarthritis 675186965 M19.90 Hyperlipidemia 75876425 E78.5 [id number] Viktor Barth MD [address] [address] 09/17/2024 13:48:59 09/17/2024 14:16:21 Acute exacerbation of chronic obstructive pulmonary disease 325454579 J44.1 [id number] Viktor Barth MD [address] [address] 09/18/2024 13:49:51 09/18/2024 14:20:50 Acute exacerbation of chronic obstructive pulmonary disease 029429808 J44.1 Acute pharyngitis 796298 003 J02.9 [id number] Viktor Barth MD [address] [address] 09/22/2024 10:46:28 09/22/2024 11:09:11 Acute exacerbation of chronic obstructive pulmonary disease 003395188 J44.1 Candidiasis of mouth 797 97659 B37.0 [id number] Viktor Barth MD [address] [address] [place] [address] 09/26/2024 10:20:06 09/26/2024 10:48:32 Acute exacerbation of chronic obstructive pulmonary disease 420671683 J44.1 Seasonal a llergic rhinitis 442037896 J30.2 [id number] Viktor Barth MD [address] [address] [place] [address] 10/03/2024 10:08:10 10/03/2024 10:36:06 Acute pharyngitis 287537060 J02.9 Chronic ob structive pulmonary disease 44789400 J44.9 [id number] Viktor Barth MD [address] [address] [place] [address] 10/17/2024 10:11:55 10/17/2024 10:34:52 Chronic obstructive pulmonary disease 73574384 J44.9 Acute pharyngitis 298352 003 J02.9 [id number] Viktor Barth MD [address] [address] [place] [address] 10/31/2024 15:50:54 10/31/2024 16:41:08 Right lower zone pneumonia 892769123 J18.1 Chronic ob structive pulmonary disease 95281474 J44.9 Congestive heart failure 38276189 I50.9 Essential hypertension 93342340 I10 Cough 08283266 R05.9 [id number] Viktor Barth MD [address] [address] [place] [address] 11/17/2024 11:29:27 11/18/2024 12:50:07 Chronic obstructive pulmonary disease 16636234 J44.9 Congestive heart failure 78962896 I50.9 [id number] Gabriela Robles MD [facility] [facility] [place] [address] 12/03/2024 14:44:56 12/03/2024 15:28:14 Candidiasis of mouth 32067892 B37.0 This is most likely from her oral steroid use. She does report that she rinses her mouth out after using her inhaler every single day we will start nystatin swish and swallow Sore throat 657333782 J0 2.9 Likely related to her steroid use. Otorrhea of left ear 950 8757981 473794 H92.12 I am concerned about a possible canal cholesteat nate on her left ear Vasomotor rhinitis 03108 03 J30.0 [id number] Viktor Barth MD [address] [address] 12/02/2024 15:51:18 12/03/2024 09:42:29 Benign hypertension 41325932 I10 Acute bronchitis 1062834 2 J20.9 Chronic ob structive pulmonary disease 16673463 J44.9 Congestive heart failure 64526745 I50.9 [id number] Terry Byrd MD [facility] [address] [place] [address] 12/04/2024 12:48:04 12/04/2024 13:36:25 Screening for malignant neoplasm of colon 545603440 Z12.11 Age-approp riate for screening, schedule colonoscop y Noncomplia nt with recommende d colonoscop y in March of 2024 and August of 2024, reschedule at this time however patient was told that if she continues to be noncomplia nt with follow-up we may need to discharge her from the practice Dysphagia 08979491 R13.1 0 solid food dysphagia scheduled for an EGD in March of 2024 and August of 2024 symptoms persists, will reschedule EGD for evaluation . the patient was counseled that recurrent / persistent noncomplia nce may lead to our need to terminate her from the practice so the importance of follow-up is very critical Gastroesop hageal reflux disease without esophagitis 805303306 K21.9 Ongoing reflux symptomato logy, continue current PPI therapy assess endoscopic picture at EGD. Tobacco de pendence syndrome 25446627 F17.143 [id number] Viktor Barth MD [address] [place] [address] 12/09/2024 15:09:00 12/09/2024 15:51:12 Chronic obstructive pulmonary disease 64415309 J44.9 Essential hypertension 49320703 I10 Hyperlipidemia 60706431 E78.5 Vitamin D deficiency 347 52303 E55.9 Fatigue 43826951 R53.83 Folic acid deficiency 19 2600203 E53.8 [id number] Viktor Barth MD [address] [address] 12/12/2024 13:16:46 12/12/2024 13:52:32 Chronic obstructive pulmonary disease 74294200 J44.9 Anemia 449151512 D64.9 Vitamin D deficiency 347 08748 E55.9 [id number] Gabriela Robles MD [facility] [place] [address] 01/14/2025 13:51:55 01/14/2025 14:46:51 Otorrhea of left ear 4121060954 803357 H92.12 Ear drainage has resolved. She does not have any evidence of otorrhea at this time. Physical deconditioning 8055618325 9102 R68.89 She needs aggressive physical therapy for recovery. [id number] Viktor Barth MD [address] [address] 01/27/2025 13:59:50 01/27/2025 15:54:53 Hypoxemia 202786202 R09.02 History of fall 32654053 9 Z91.81 skin tear cleansed and redressed Amnesia 48950272 R41.3 Open wound of left upper limb 8496772569 7106 S41.112A Dyspnea 106131609 R06.00 Chronic ur inary tract infection 831474632 N39.0 Pneumonia 841452342 J18. 9 Acute exac erbation of chronic obstructive pulmonary disease 675833431 J44.1 [id number] Viktor Barth MD [address] [place] [address] 01/30/2025 13:57:21 01/30/2025 14:32:13 Acute exacerbation of chronic obstructive pulmonary disease 289437122 J44.1 Retention of urine 91554 4002 R33.9 Open wound of left upper limb 3079515006 7106 S41.112A Adult fail ure to thrive syndrome 808918135 R62.7 Congestive heart failure 38682013 I50.9 [id number] Leonel Mckeon NP [address] [place] [address] 03/05/2025 10:20:59 03/05/2025 11:25:12 Chronic obstructive pulmonary disease 22169137 J44.9 Congestive heart failure 15319833 I50.9 Adult fail ure to thrive syndrome 990003007 R62.7 [id number] Leonel Mckeon NP [address] [place] [address] 04/01/2025 13:26:18 04/01/2025 14:46:14 Chronic obstructive pulmonary disease 17865988 J44.9 Congestive heart failure 23550472 I50.9 Adult fail ure to thrive syndrome 652012056 R62.7 [id number] Leonel Mckeon NP [address] [place] [address] 04/20/2025 15:39:13 04/20/2025 16:25:22 Dysuria 54240335 R30.0 Candidiasis of skin 4988 3006 B37.2 Health Concerns Section Related Observation LastModified by Organization Detai ls LastModified Time None Recorded Concern Status LastModified by Organization Details LastModified Time None Recorded Advance Directives Directive N: Payers Insurance Date Sequence Insurance Name Policy Number Policy Umanzor Covered Member ID Umanzor Member ID Guarantor Name 07/03/2024 3 [place]MEDICARE [place]ACEMENT HMO) [id number] Marisa Lange Uriah [id number] Marisa Kruse 05/18/2025 1 [employer] [place] (MEDICARE REPLACEMENT/A DVANTAGE - HMO) Marisa Kruse [id number] Marisa Kruse 07/03/2024 2 PASSPORT BY [employer] (MEDICAID REPLACEMENT - HMO) [id number] Marisa Kruse [id number] Marisa Kruse 07/03/2024 2 [place] [facility] - FFS/TRADITION AL Marisa Kruse [id number] Marisa Kruse 01/27/2025 [employer] Marisa Kruse 07/03/2024 1 [place] [employer] - [facility] Marisa Kruse [id number] Marisa Kruse 07/03/2024 2 [place] Marisa Kurse [id number] Marisa Krsue OBGyn Episode No OBEpisode recorded.
--- OUTSIDE RECORDS SUMMARY | 2025-06-09 21:43 | XMS_ITS | Encounter Summary ---
Author Organization Healthcare Address [address] [place] [address] Care Team Providers Care Wood Panel Inspector Name Role Phone Melanie Brice Primary Care Provider Debora Mckeon APRN Unavailable Encounter Details Date Type Department Care Team (Late st Contact Info) Description 08/05/2023 Orders Only External Location [address] [place] [address] Provider, External Social History Tobacco Use Types Packs/Day Years [...] as of this encounter Plan of Treatment Not on file documented as of this encounter Procedures Procedure Name Priority Date/Time Associated Diagnosis Comments CT THORACIC OUTSIDE IMAGES 08/05/2023 1:00 PM EDT documented in this encounter Results * CT THORACIC OUTSIDE IMAGES (08/05/2023 1:00 PM EDT) Anatomical Region Laterality Modality Computed Tomogra phy 08/05/2023 1:00 PM EDT us External Provider IMG CT PROCEDURES Final Result documented in this encounter Visit Diagnoses Not on filedocumented in this encounter Additional Health Concerns Assessment Noted Time A fall risk assessment has been complete d for the patient 06/18/2023 10:04 AM EDT documented as of this encounter Care Teams Wood Panel Inspector Relationship Specialty Start Date End Date Melanie Brice [address] [place], [place] [id number] PCP - General Family Medicine 01/11/22 Debora Mckeon APRN [address] [place] [address] Referring Physician 01/11/22 documented as of this encounter
--- OUTSIDE RECORDS SUMMARY | 2025-06-09 21:43 | XMS_ITS | Patient Health Record ---
Author Organization [facility] Address [address] [address] Care Team Providers Care Curb Setter Name Role Phone MATEUS MONCADAARABELLAAnthony Primary Care Provider Reason For Referral No Information Medications Medication SIG (Take, Route, Frequency, Duration) Notes Start Date End Date Status Zithromax Z-Danis 250 mg 1 (one) tablet(s) or oral once a day for five 03/27/2012 Active Medrol (Danis) 4 mg 1 (one) pack oral on oral once a day for one 10/13/2016 Active Combivent 90 mcg-18 mcg/inh 2 (two) puffs inhala inhalation every 6 hours for thirty 03/27/2012 Active Flexeril 10 mg 1 (one) tablet(s) or oral 3 times a day for one 10/13/2016 Active Plan Of Treatment No Information Insurance Providers Payer Name Payer Address Payer Phone Subscriber Number Group Number Insured Name Patient Relationship to Insured Coverage Start Date Coverage End Date [facility] [address] [place] [address] [id number] Marisa Martino Self - patient is the insured
--- OUTSIDE RECORDS SUMMARY | 2025-06-09 21:43 | XMS_ITS | Clinical Summary ---
Author Organization [facility] Address [facility] [place] [address] Care Team Providers Care Senior Storage Engineer Name Role Phone Unavailable Primary Care Provider Unavailabl e Allergies No known active allergies Medications No known medications Active Problems Problem Noted Date Diagnosed Date Hypotension 08/04/2023 Shock 08/04/2023 Social History Tobacco Use Types Packs/Day Years Used Date Smoking Tobacco: Never Assessed Comments Unknown Sex and Gender Information Value Date Recorded Sex Assigned at Not on file Legal Sex Female 1:23 PM EDT Gender Identity Not on file Sexual Orientation Not on file Last Filed Vital Signs Vital Sign Reading Time Taken Comments Blood Pressure 124/47 08/09/2023 8:06 AM EDT RN (Geovanny) notified Pulse 84 08/09/2023 8:28 AM EDT Temperature 37 C (98.6 F) 08/09/2023 8:06 AM EDT Respiratory Rate 18 08/09/2023 8:28 AM EDT Oxygen Saturation 89% 08/09/2023 8:2 8 AM EDT Normal. Per pt Inhaled Oxygen Concentration - - Weight 49.5 kg (109 lb 1.6 oz) 08/09/2023 5:45 AM EDT Height 165.1 cm (5' 5 ) 08/08/2023 6:35 PM EDT Body Mass Index 18.16 08/08/2023 6:35 PM EDT Plan of Treatment Health Maintenance Due Date Last Done Comments Cologuard 1959 Colonoscopy 1959 Colorectal Cancer Screening 1959 FIT 1959 Lipid Monitoring 1976 Tetanus Vaccination (Every 10 Years) 1977 Pneumococcal Vaccine: 50+ Years (1 of 2 - PCV) 978 Hepatitis C Virus (HCV) Screening 1980 Breast Cancer Screening 2009 Zoster-RZV(Shingrix) (1 of 2) 2009 RSV Vaccines (1 - Risk 60-74 years 1-dose series) 05/12 Fall Risk Assessment 2024 Osteoporosis Screening 2024 COVID-19 Vaccine ( season) 2024 Advance Care Planning 11/12/2024 Depression Screening 11/12/2024 Influenza Vaccination (#1) 2025 Insurance [facility] [place] MEDICARE Advance Directives For more information, please contact: [phone] * Full Code (Latest Code Status on File) Date Activated Date Inactivated Comments 08/04/2023 1:58 PM No automated c hest compression devices for VAD Patients
--- OUTSIDE RECORDS SUMMARY | 2025-06-09 21:43 | XMS_ITS | Continuity of Care Document ---
Author Organization [place] [facility] Address [address] [place] [address] Care Team Providers Care Lead Oxide Mill Tender Name Role Phone LEONEL MCKEON Primary Care Provider LEONEL MCKEON Referring Provider [phone] Assessment No assessment recorded. Plan of Treatment Reminders Order Date Submit Date Provider Last Modified By Organization Details Last Modified Time Details Appointments OV NEW 30 2024 02:00P Kenya Martin M.D Not available Not available Not available Lab urinalysi s, dipstick 2024 025 [email or web address] [facility], [address] [place] [address], [address], 04/20/2025 17:04:38 Referral None recorded. Procedures None recorded. Surgeries None recorded. Imaging None recorded. Medication Orders Diflucan 100 mg tablet 2024 025 [facility], [address], [place], [address], 04/20/2025 17:04:47 ketoconaz ole 2 % topical cream 2024 025 [facility], [address], [place], [address], 04/20/2025 17:04:45 Patient TargetsNo targets recorded. Patient Instructions Encounter Date Encounter Id Patient Instructions Last Modified By Organization Details Last Modified Time 04/20/2025 [id number] plan 1. Discussed the importance of changing [...] follow-up in 2 weeks, sooner if necessary. [email or web address] Not available 04/20/2025 17:05:31 Reason for Referral None Reported. Results Created Date Observation Date Name Description Value Unit Range Abnormal Flag Note LastModifiedBy Organization Detail LastModifiedTime 04/20/2004/20/2025 urina lysis , dipst ick Leukocytes (reference range) trace Not Available [address], [address], 04/20/2025 16:01:31 04/20/20 25 04/20/2025 urina lysis , dipst ick Nitrite (reference range:) negati ve Not Available [address], [address], 04/20/2025 16:01:31 04/20/2004/20/2025 urina lysis , dipst ick Urobilinogen (reference range) 0.2 Not Available [address], [address], 04/20/2025 16:01:31 04/20/2004/20/2025 urina lysis , dipst ick Protein (reference range) negati ve Not Available [address], [address], 04/20/2025 16:01:31 04/20/20 25 04/20/2025 urina lysis , dipst ick pH (reference range 5-8.5) 6.0 Not Available [address] [place], [address], 04/20/2025 16:01:04/20/2004/20/2025 urina lysis , dipst ick Blood (reference range:) negati ve Not Available [address], [address], 04/20/2025 16:01:31 04/20/20 25 04/20/2025 urina lysis , dipst ick Specific [place] (reference range) 1.010 Not Available [address], [address], 04/20/2025 16:01:04/20/20 25 04/20/2025 urina lysis , dipst ick Ketone (reference range) negati ve Not Available [address], [address], 04/20/2025 16:01:31 04/20/20 25 04/20/2025 urina lysis , dipst ick Bilirubin (reference range) negati ve Not Available [address], [address], 04/20/2025 16:01:31 04/20/20 25 04/20/2025 urina lysis , dipst ick Glucose (reference range) negati ve Not Available [address], [address], 04/20/2025 16:01:31 Result Notes None recorded. Problems Name Problem SNOMED Code Status Onset Date Resolution Date Notes Provider Name and Address Organization Details Recorded Time Rheumatoid arthritis 96973110 Active 2021 Leonel Mckeon NP [address] [place] [address], [address], [place] [facility] & [place] 2 14:37:09 Osteoarthri tis 849513293 Active 2021 Leonel Mckeon NP [address] [place] [address],[address], [place], [address], [place] [facility] [facility] & [place] 2 14:37:01 Spinal stenosis 98274056 Active 2021 Leonel Mckeon NP [address] [place] [address],[address], [place], [address], [place] [facility] [facility] & [place] 2 14:37:11 Irritable bowel syndrome 71013331 Active 2021 Leonel Mckeon NP [address] [place] [address],[address], [place], [address], [place] 2 14:37:03 Essential hypertensio n 05667265 Active 2021 [facility], [place] [facility] [place] & [place] 5 10:34:51 Degenerativ e disorder 506767050 Active 2021 Leonel Mckeon NP [address] [place] [address],[address], [place], [address], [place] 2 14:36:43 Peripheral vascular disease 795381701 Active 2021 Leonel Mckeon NP [address] [place] [address],[address], [place], [address], [place] 2 14:37:06 Chronic myelopathy 0846250933562 08 Active 2021 Leonel Mckeon NP [address] [place] [address],[address], [place], [address], [place] 2 14:36:33 Polyneuropa thy 22661607 Active 2021 Leonel Mckeon NP [address] [place] [address],[address], [place], [address], [place] 2 14:37:16 Vitamin D deficiency 39316462 Active 2021 Leonel Mckeon, MYLA [address] [place] [address],[address], [place], [address], [place] 2 14:37:14 Fatigue 99284907 Active 2021 Hazel jenkins, [place] 2 13:39:17 Carpal tunnel syndrome 37659417 Active 2021 Leonel Mckeon NP [address] [place] [address],[address], [place], [address], [place] 2 14:36:31 Chronic obstructive pulmonary disease 47690940 Active 2021 Leonel Mckeon NP [address] [place] [address],[address], [place], [address], [place] 2 14:36:36 Congestive heart failure 37860588 Active 2021 Leonel Mckeon, MYLA [address] [place] [address],[address], [place], [address], [place] 2 14:36:40 Hyperlipide gianna 16992036 Active 2021 Leonel Mckeon NP [address] [place] [address],[address], [place], [address], [place] 2 14:36:58 Peripheral edema 967610654 Active 2021 Leonel Mckeon NP [address] [place] [address],[address], [place], [address], [place] 2 14:36:18 Electrolyte imbalance 243917167 Active 2021 Leonel Mckeon NP [address] [place] [address],[address] [place] [address], [address], [place] [facility] [facility] & [place] 2 16:08:55 Benign hypertensio n 40152719 Active 2021 Hazel Cox null, [place] [facility] & [place] 2 10:27:16 Cough 44750447 Active 2021 Beatriz Starr null, [place] [facility] [place] 2 13:20:46 Acute exacerbatio n of chronic obstructive pulmonary disease 995880668 Active 2021 ANY SAUCEDO [address] [place] [address],[address] [place] [address], [address], [place] [facility] [facility] & [place] 5 15:11:28 Candidiasis of mouth 20198859 Active 2021 ANY SAUCEDO [address] [place] [address],[address] [facility], [place], [address], [place] [facility] & [place] 5 16:55:32 Acute urinary tract infection 240975757 Active 2022 Leonel Mckeon NP [address] [place] [address],[address], [place], [address], [place] [facility] [facility] & [place] 3 09:41:45 Standard chest X-ray abnormal 715016968 Active 2022 Leonel Mckeon NP [address] [place] [address],[address] [place] [address], [address], [place] [facility] [facility] [place] 3 09:43:34 Dysfunction of bilateral eustachian tubes 8145578914351 100 Active 2022 DIONNE MENDEZ MD [address] [place] [address], [address], [place], [address], [place] [facility] [facility] [place] 3 15:41:50 Thyroid nodule 045483505 Active 2022 Leonel Mckeon, MYLA [address] [facility],[address], [place], [address], [place] 3 10:07:23 Mixed hyperlipide gianna 483884505 Active 2022 Leonel Mckeon, MYLA [address] [place] [address],[address], [place], [address], [place] 3 11:45:13 Abscess of skin of right wrist 1385455356698 9108 Active 2022 Leonel Mckeon, MYLA [address] [place] [address],[address], [place], [address], [place] 3 08:44:25 Pain in throat 508648357 Active 2022 Rosey jenkins, [place] [facility] 3 16:49:43 Streptococc al sore throat 39904119 Active 2022 Leonel Mckeon, MYLA [facility],[address], [place], [address], [place] 3 16:51:20 Pain in throat 266496626 Active 2022 Leonel Mckeon NP [facility],[address], [place], [address], [place] 3 16:51:20 Pain of multiple joints 73845424 Active 2022 Leonel Mckeon, MYLA [address] [facility],[address], [place], [address], [place] 3 13:20:22 Acute pharyngitis 931897500 Active 2022 Leonel Mckeon NP [address] [facility],[address], [place], [address], [place] 3 14:07:29 Oral erythematou s candidiasis 594564437 Active 2022 Leonel Mckeon, MYLA [address] [place] [address],[address], [place], [address], [place] 3 14:19:30 Candidiasis of skin 86283066 Active 2022 ANY SAUCEDO [address] [place] [address],[address], [place], [address], [place] 5 16:57:02 Gastro-esop hageal reflux disease with esophagitis 758982376 Active 2022 Leonel Mckeon, MYLA [address] [place] [address],[address], [place], [address], [place] 3 14:24:02 Candidiasis of vagina 58648773 Active 2022 Leonel Mckeon, MYLA [address] [place] [address],[address], [place], [address], [place] 3 09:25:19 Influenza caused by Influenza B virus 84857411 Active 2023 Leonel Mckeon NP [address] [place] [address],[address], [place], [address], [place] 4 15:44:42 Blood glucose outside reference range 635718816 Active 2023 Leonel Mckeon NP [address] [place] [address],[address], [place], [address], [place] 4 10:55:01 Conductive hearing loss of right ear 4667507434 Active 2023 BEATRIZ EVANS, JACINDA [address] [place] [address] Drive,[address], [place], [address], [place] 4 10:11:05 Gastroesoph ageal reflux disease without esophagitis 320410047 Active 2023 Terry Byrd MD [address] [place] [address],[address] [place] [address], [address], [place] 4 06:36:24 Dysphagia 45815821 Active 2023 Terry Byrd MD [address] [place] [address],[address] [place] [address], [address], [place] 4 09:44:22 Regurgitati on of food 153530366 Active 2023 Terry Byrd MD [address] [place] [address],[address] [place] [address], [address], [place] 4 09:45:04 Folic acid deficiency 580804342 Active 2023 Leonel Mckeon NP [address] [place] [address],[address] [place] [address], [address], [place] 4 09:31:22 Degeneratio n of lumbar interverteb ral disc 67822897 Active 2023 Leonel Mckeon NP [address] [place] [address],[address] [facility], [place], [address], [place] 4 09:24:39 Hyponatremi a 30500420 Active 2023 Leonel Mckeon NP [address] [place] [address],[address], [place], [address], [place] 4 09:21:26 Constipatio n 48477591 Active 2023 Leonel Mckeon NP [address] [place] [address],[address], [place], [address], [place] 4 10:16:23 Near syncope 744050162 Active 2023 Leonel Mckeon NP [address] [place] [address],[address], [place], [address], [place] 4 09:53:29 Recurrent falls 961167189 Active 2023 Leoenl Mckeon NP [address] [place] [address],[address] [place] [address], [address], [place] 4 09:55:34 Tobacco dependence syndrome 54815009 Active 2023 Terry Byrd MD [address] [place] [address],[address] [place] [address], [address], [place] 4 09:19:07 Congestion of nasal sinus 74539749 Active 2023 Matty null, [place] [facility] 4 14:05:24 Sore throat 529987039 Active 2023 Starr null, [place] [facility] 4 14:05:53 Gastroesoph ageal reflux disease 634976642 Active 2023 Leonel Mckeon NP [address] [place] [address],[address] [facility], [place], [address], [place] [facility] 4 14:46:41 Seasonal allergic rhinitis 728707857 Active 2023 Leonel Mckeon NP [address] [place] [address],[address], [place], [address], [place] 4 10:54:01 Right lower zone pneumonia 131911564 Active 2023 ANY SAUCEDO [address] [place] [address],[address], [place], [address], [place] 4 16:25:51 Acute bronchitis 21823537 Active 2024 Leonel Mckeon NP [facility] [address], [place], [address], [place] 5 16:25:40 Anemia 028469553 Active 2024 Leonel Mckeon, VIRTUALIZATION ENGINEER [facility],[address], [place], [address], [place] 5 13:56:28 Hypoxemia 562790668 Active 2024 ANY SACUEDO [facility] [address], [place], [address], [place] 5 14:43:58 Amnesia 23624737 Active 2024 ANY SAUCEDO [facility],[address], [place], [address], [place] 5 14:44:41 Open wound of left upper limb Active 2024 ANY SAUCEDO [facility],[address], [place], [address], [place] 5 14:57:33 Dyspnea 734579454 Active 2024 ANY SAUCEDO [facility],[address], [place], [address], [place] 5 14:57:55 Chronic urinary tract infection 282992057 Active 2024 ANY SAUCEDO [facility] [address], [place], [address], [place] 5 14:58:17 Pneumonia 533656007 Active 2024 ANY SAUCEDO [facility],[address], [place], [address], [place] 5 15:11:11 Retention of urine 649788103 Active 2024 Leonel Mckeon NP [address] [place] [address],[address], [place], [address], [facility] - [facility] - [place] & [place] 5 15:03:27 Adult failure to thrive syndrome 337687034 Active 2024 Leonel Mckeon NP [address] [place] [address],[address], [place], [address], [place] [facility] 5 15:03:44 Dysuria 58254793 Active 2024 Leonel Mckeon NP [address] [place] [address],[address], [place], [address], [place] [facility] [place] 5 15:48:30 Problem Notes None recorded. Procedures Surgical History Date Name Laterality Status Provider Name and Address Organization Details Recorded Time 02/29/20 24 Medicare Annual Wellness Visit Health Risk Assessment completed Rosey Sandy [facility] & [place] 02/29/2024 09:11:32 08/15/20 23 Removal of foreign body from ear canal completed DIONNE MENDEZ MD [address] [place] [address], [address], [place], [address], [facility] - [facility] & [place] 08/15/2023 09:51:17 05/31/20 23 EMG/ Nerve Conduction Study completed Milo Joseph M.D [address] [place] [address], [address], [address], [facility] - [facility] & [place] 06/04/2023 11:28:10 01/20/20 23 Tympanostomy with placement of tube completed DIONNE MENDEZ MD [address] [place] [address], [address], [address], [facility] - [facility] & [place] 01/19/2023 16:05:29 08/08/20 22 Excision and closure completed Sudheer Oro MD [address] [place] [address],[address], [place], [address], [facility] - [facility] & [place] 08/08/2022 10:07:19 11/12/19 19 Joint Replacement completed Violeta MARTINEZ - [facility] & [place] 08/03/2022 09:24:22 lumbar spinal fusion completed Not Available [facility] 07/31/2022 15:53:39 prosthetic total arthroplasty of right shoulder completed Not Available [facility] 07/31/2022 15:53:39 incision and drainage of abscess completed Hazel MARTINEZ - [facility] & [place] 07/31/2022 16:17:54 Imaging Results None recorded. Procedure [...] MOUTH EVERY 12 HOURS FOR 14 DAYS 10/13 /2023 completed Not Available Not Available Not Available [...] Take as directed by Dr. Byrd's [facility] ,1/ in the evening on 01/03 half on [...] Updated DateTime 5 165.1 cm 17.3 kg/m2 62402.6 1 g 99 % 99 % 90 /min 120/74 mm[Hg] Rosey Sandy JUAN [facility] & [place] 5 15:45:50 Social History Question Answer Notes LastModified by Organizat ion Details LastModified Time Tobacco Smoking Status Current Every Day Smoker Hazel JUAN [place] [facility] & [place] 07/26/2022 13:42:00 Do You Have An Advance Directive? No Information not available 07/31/2022 Are You Blind Or Do You Have Difficulty Seeing? No Information not available 07/31/2022 What Is Your Level Of Caffeine Consumption? Occasional [email or web address] Information not available 12/21/2023 What Type Of Diet Are You Following? REGULAR [email or web address] Information not available 03/21/2024 What Was The [...] other forms of tobacco or nicotine? No [email or web address] Information not available 03/21/2024 What is your [...] anxious, or unable to sleep at night)? [id number] [email or web address] Information not available 07/31/2022 Family History Relationship Description Onset Age of this Age Resolved Age Notes LastModified by Organization Details LastModified Time Mother Malignant neoplasm of brain 61 API-13 Not available 2024 15:42:07 Father Kidney disease 63 [email or web address] Not available 08/2024 09:33:16 Medical History Condition Response Coronary Artery Disease N Gout N None N Colon Cancer N Kidney Stones N Hyperthyroidism N Emphysema N Depression N COPD Y Glaucoma N Hypothyroidism N Diverticulitis/Diverticulosis N Anesthesia [...] Disorder N Colon Polyps N Heart Attack ([place]) N Diabetes N Bleeding Disorder N Seizures/Epilepsy [...] mcg/0.25mL dose 1 completed Hazel Cox null, [place] [facility] [facility] & [place] 08/28/2022 10:26:58 COVID-19, mRNA, LNP-S, PF, 100 mcg/0.5mL dose or 50 mcg/0.25mL dose 1 completed Rosey Saldaña null, [place] [facility] [facility] & [place] 10/15/2023 13:59:14 COVID-19, mRNA, LNP-S, PF, 100 mcg/0.5mL dose or 50 mcg/0.25mL dose 1 completed Rosey Saldaña null, [place] [facility] [facility] & [place] 10/15/2023 13:59:14 COVID-19, mRNA, LNP-S, PF, 100 mcg/0.5mL dose or 50 mcg/0.25mL dose 1 completed Hazel Cox null, [place] [facility] [facility] & [place] 08/28/2022 10:26:58 Td (adult), 2 Lf tetanus toxoid, preservative free, adsorbed 8 completed Hzael Cox null, [place] [facility] [facility] & [place] 08/28/2022 10:26:58 Past Encounters Encounter ID Performer Location Encounter Start Date Encounter Closed Date Diagnosis/Indication Diagnosis SNOMED-CT Code Diagnosis ICD10 Code Diagnosis Note [id number] Leonel Mckeon NP [facility] [address] [place] [address] 04/01/2025 13:26:18 04/01/2025 14:46:14 Chronic obstructive pulmonary disease 01222213 J44.9 Congestive heart failure 31736113 I50.9 Adult fail ure to thrive syndrome 547741527 R62.7 [id number] Leonel Mckeon NP [facility] [address] [facility] [place] [address] 04/20/2025 15:39:13 04/20/2025 16:25:22 Dysuria 83965241 R30.0 Candidiasis of skin 4988 3006 B37.2 Health Concerns Section Related Observation LastModified by Organization Detai ls LastModified Time None Recorded Concern Status LastModified by Organization Details LastModified Time None Recorded Payers Encounter Date Sequence Insurance Name Policy Number Policy Umanzor Covered Member ID Umanzor Member ID Guarantor Name 04/20/2025 1 [employer] [place] (MEDICARE REPLACEMENT/ ADVANTAGE - HMO) Marisa Kruse [id number] Marisa Kruse OBGyn Episode No OBEpisode recorded.
--- OUTSIDE RECORDS SUMMARY | 2025-06-09 21:43 | XMS_ITS | Encounter Summary ---
Author Organization Healthcare Address [address] [place] [address] Care Team Providers Care Sales Representative [employer] Name Role Phone Melanie Brice Primary Care Provider [phone] Debora Mckeon APRN Unavailable [phone] Encounter Details Date Type Department Care Team (Late st Contact Info) Description 11/20/2023 Orders Only External Location [address] [place] [address] Provider, External Social History Tobacco Use Types [...] Associated Diagnosis Comments CT THORACIC OUTSIDE IMAGES 11/20/2023 10:31 AM EST documented in this encounter Results * CT THORACIC OUTSIDE IMAGES (11/20/2023 10:31 AM EST) Anatomical Region Laterality Modality Computed Tomogra phy 11/20/2023 10:3 1 AM EST us External Provider IMG CT PROCEDURES Final Result documented in this encounter Visit Diagnoses Not on filedocumented in this encounter Additional Health Concerns Assessment Noted Time A fall risk assessment has been complete d for the patient 06/18/2023 10:04 AM EDT documented as of this encounter Care Teams Sales Representative [employer] Relationship Specialty Start Date End Date Melanie Brice [address] [place] [address] PCP - General Family Medicine 01/11/22 Debora Mckeon APRN [address] [place], [place] [id number] Referring Physician 01/11/22 documented as of this encounter
--- OUTSIDE RECORDS SUMMARY | 2025-06-09 21:43 | XMS_ITS | Encounter Summary ---
Author Organization Healthcare Address [address] [place] [address] Care Team Providers Care Oil Recovery Unit Operator Name Role Phone Melanie Brice Primary Care Provider [phone] Debora Mckeon OIL FIELD RIG BUILDER Unavailable [phone] Encounter Details Date Type Department Care Team (Late st Contact Info) Description 01/04/2022 [facility] [address] [place] [address] Debora Mckeon APRN [address] [place] [address] Hemoptysis (Primary Dx) Social History Tobacco Use Types [...] as of this encounter Visit Diagnoses Diagnosis Hemoptysis- Primary documented in this encounter Care Teams Oil Recovery Unit Operator Relationship Specialty Start Date End Date Melanie Brice [address] [place] [address] PCP - General Family Medicine 01/11/22 Debora Mckeon APRN [address] [place] [address] Referring Physician 01/11/22 documented as of this encounter
--- OUTSIDE RECORDS SUMMARY | 2025-06-09 21:43 | XMS_ITS | Clinical Summary ---
Author Organization [facility] Address [address] [place] [address] Care Team Providers Care Vial Gauger Name Role Phone Melanie Brice Primary Care Provider [phone] Allergies No known active allergies Medications linaclotide (LINZESS) 145 MCG capsule capsule Take 145 mcg by mouth Every Morning Before Breakfast. Active gabapentin (NEURONTIN) 600 MG tablet Take 600 mg by mouth 3 (Three) Times a Day. Active DICLOFENAC PO Take 1 tablet by mouth 2 (Two) Times a Day. 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 Not on file 10/2023 Does Anyone Keep You from Co ntacting Others or Doint Things Outside the Home? Not on file 08/23/2023 Physical Sign of Abuse Present Not on file 1 Housing Stability Answer Date Recorded Current Living Arrangements Not on file 08/12 Potentially Unsafe Housing Conditions Not on otilio e 08/23/2023 Family and Community Support Answer Ashwin e Recorded Help with Day-to-Day Activities Not on file 08/23/2023 Lonely or Isolated Not on file 08/23/2023 Employment Answer Date Recorded Do you want help finding or keeping work or a eulogio b? Not on file 08/23/2023 Disabilities Answer Date Recorded Concentrating, Remembering, or Making Decisions Difficulty Not on file 08/23/2023 Doing Errands Independently Difficulty Not on fi le 08/23/2023 Education Answer Date Recorded Help with school or training? Not on file Preferred Language Not on file 08/23/2023 Comments No Sex and Gender Information Value Date Recorded Sex Assigned at Not on file Legal Sex Female 11:31 AM EDT Gender Identity Not on file Sexual Orientation Not on file Last Filed Vital Signs Vital Sign Reading Time Taken Comments Blood Pressure 161/89 01/08/2020 3:21 PM EST Pulse 80 01/08/2020 3:21 PM EST Temperature 36.6 C (97.9 F) 01/08/2020 2:47 PM EST Respiratory Rate 18 01/08/2020 3:21 PM EST Oxygen Saturation 93% 01/08/2020 2:47 PM EST Inhaled Oxygen Concentration - - Weight 52.2 kg (115 lb) 01/08/2020 2:47 PM EST Height 165.1 cm (5' 5 ) 01/05/2020 1:39 PM EST Body Mass Index 19.14 01/05/2020 1:39 PM EST Plan of Treatment Health Maintenance Due Date Last Done Comments DXA SCAN 1959 MAMMOGRAM 1999 COLOGUARD 2004 COLON CANCER SCREENING 5 YEA R SIGMOIDOSCOPY 2004 COLONOSCOPY 2004 COL[address]AL CANCER SCREENING 2004 CT COLONOGRAPHY 2004 FECAL OCCULT BLOOD TEST 2004 FIT Testing (1 year) 2004 TDAP/TD VACCINES (2 - Tdap) 12/21/2007 12/21/1997 Pneumococcal Vaccine 50+ (1 of 1 - PCV) 2009 ZOSTER VACCINE (1 of 2) 2009 ANNUAL PHYSICAL 08/30/2018 HEPATITIS C SCREENING 08/30/2018 PT PLAN OF CARE 04/13/2020 01/14/2020 COVID-19 Vaccine ( season) 2024 INFLUENZA VACCINE 08/12/2025 LUNG CANCER SCREENING Discontinued 06/09/2024, 024 Medical Devices Implanted Type Area Pesticide Use Medical Coordinator Device Identifier Shelf Expiration Date Model / Serial / Lot Stem Hum Liz Equinoxe Pressfit 6mm Sht - [id number] - [id number] Implanted:Qty : 1 on 12/15/2019 by Nemesio Ku MD at [facility] Implant Right: Shoulder EXACTECH 06/23/2029 [id number] / [id number] / N/A Liner Hum Equinoxe Rev Shldr 38 Pls0 - [id number] - [id number] Implanted:Qty : 1 on 12/15/2019 by Nemesio Ku MD at [facility] Implant Right: Shoulder EXACTECH 08/31/2024 [id number] / [id number] / N/A Try Hum Equinoxe Adpt Rev Shldr Pls0 - [id number] - [id number] Implanted:Qty : 1 on 12/15/2019 by Nemesio Ku MD at [facility] Implant Right: Shoulder EXACTECH 10/22/2029 [id number] / [id number] / N/A Totl Shldr Aug Plt Arthroplasty Upchrg - [id number] Implanted:Qty : 1 on 12/15/2019 by Nemesio Ku MD at [facility] Implant Right: Shoulder EXACTECH CAPSHOULTOTUPCHR GEXA C / / Totl Shldr Rev Ttl Exactech - [id number] Implanted:Qty : 1 on 12/15/2019 by Nemesio Ku MD at [facility] Implant Right: Shoulder EXACTECH CAPSHOUDREVEXACT TL / / Plt/Jnt Khurram Equinoxe Aug/Superior 10d - [id number] - [id number] Implanted:Qty : 1 on 12/15/2019 by Nemesio Ku MD at [facility] Implant Right: Shoulder EXACTECH 08/19/2029 [id number] / [id number] / N/A Scrw Compr Equinoxe Lk 4.5x26mm - [id number] - [id number] Implanted:Qty : 1 on 12/15/2019 by Nemesio Ku MD at [facility] Implant Right: Shoulder EXACTECH 10/02/2024 [id number] / [id number] / N/A Scrw Compr Equinoxe Lk 4.5x18mm - [id number] - [id number] Implanted:Qty : 1 on 12/15/2019 by Nemesio Ku MD at [facility] Implant Right: Shoulder EXACTECH 07/05/2024 [id number] / [id number] / N/A Scrw Compr Equinoxe Lk 4.5x26mm - [id number] - [id number] Implanted:Qty : 1 on 12/15/2019 by Nemesio Ku MD at [facility] Implant Right: Shoulder EXACTECH 05/06/2024 [id number] / [id number] / N/A Scrw Compr Equinoxe Lk 4.5x26mm - [id number] - [id number] Implanted:Qty : 1 on 12/15/2019 by Nemesio Ku MD at [facility] Implant Right: Shoulder EXACTECH 03/31/2024 [id number] / [id number] / N/A Scrw Equinx Glenosphere Lk - [id number] - [id number] Implanted:Qty : 1 on 12/15/2019 by Nemesio Ku MD at [facility] Implant Right: Shoulder EXACTECH 05/21/2024 [id number] / [id number] / N/A Glenosphere Equinx Rev Shldr 38mm - [id number] - [id number] Implanted:Qty : 1 on 12/15/2019 by Nemesio Ku MD at [facility] Implant Right: Shoulder EXACTECH 09/15/2029 [id number] / [id number] / N/A Scrw Equinoxe Torq Define Rev Shldr Kt - [id number] - [id number] Implanted:Qty : 1 on 12/15/2019 by Nemesio Ku MD at [facility] Implant Right: Shoulder EXACTECH 10/19/2024 [id number] / [id number] / N/A Liner Hum Equinoxe Rev Shldr 38 Pls0 - [id number] Implanted:Qty : 1 on 01/05/2020 by Nemesio Ku MD at [facility] Implant Right: Shoulder EXACTECH 12/11/2024 [id number] / / [id number] Insurance TRAVELERS WORK COMP [facility] TRAVELERS WORK COMP Advance Directives * CPR (Attempt to Resuscitate) (Latest Code Status on File) Date Activated Date Inactivated Comments 01/05/2020 11:33 PM 01/06/2020 2:25 PM Question Answer Comments Code Status (Patient has no pulse and is not breathing): CPR (Attempt to Resuscitate) Medical Interventions (Patie nt has pulse or is breathing): Full * CPR (Attempt to Resuscitate) Date Activated Date Inactivated Comments 12/15/2019 11:19 AM 12/16/2019 3:20 PM Question Answer Comments Code Status (Patient has no pulse and is not breathing): CPR (Attempt to Resuscitate) Medical Interventions (Patie nt has pulse or is breathing): Full Care Teams Vial Gauger Relationship Specialty Start Date End Date Melanie Brice PA [address] [facility] [address] [place] [address] PCP - General Physician System Admin 08/01/18
--- OUTSIDE RECORDS SUMMARY | 2025-06-09 21:44 | XMS_ITS | Clinical Summary ---
Author Organization [facility] ([place], [place], [place], [place]) Address [address] [place] [address] Care Team Providers Care Gunite Nozzle Operator Name Role Phone Debora Mckeon APRN Primary Care Provider Allergies No known active allergies Medications carvediloL (COREG) 3.125 MG tablet Take 1 tablet (3.125 mg total) by mouth 2 (two) times daily. Active folic acid (FOLVITE) 1 MG tablet Take 1 tablet (1 mg total) by mouth daily. 4 Active omeprazole (PriLOSEC) 20 MG capsule Take 1 capsule (20 mg total) by mouth daily. 4 Active potassium chloride SA (K-DUR,KLOR-CON -M) 20 MEQ tablet Take 1 tablet (20 mEq total) by mouth daily. 4 Active rosuvastatin (CRESTOR) 10 MG tablet Take 1 tablet (10 mg total) by mouth nightly. 4 Active lisinopriL (PRINIVIL,ZESTR IL) 10 MG tablet Take 1 tablet (10 mg total) by mouth daily. Active sodium chloride 1,000 mg TbSO Take 1 tablet (1 g total) by mouth daily. Active fluticasone propionate (FLONASE) 50 mcg/actuation nasal spray 2 sprays by intraNASAL route daily as needed for rhinitis. Active fluticasone-ume clidin-vilanter (Trelegy Ellipta) 200-62.5-25 mcg DsDv Inhale 1 puff by mouth via inhaler daily. Active guaiFENesin (mucINEX) 600 mg 12 hr tablet Take 2 tablets (1,200 mg total) by mouth 2 (two) times daily as needed for congestion. Active linaCLOtide (Linzess) 145 mcg Cap Take 1 capsule (145 mcg total) by mouth every morning before breakfast. Active albuterol HFA (VENTOLIN HFA) 90 mcg/actuation inhaler Inhale 2 puffs by mouth via inhaler daily as needed for wheezing. Active ergocalciferol (DRISDOL) 1,250 mcg (50,000 unit) capsule Take 1 capsule (50,000 Units total) by mouth once a week. Active furosemide (LASIX) 40 MG tablet Take 1 tablet (40 mg total) by mouth daily. Active ipratropium-alb uteroL (DUO-NEB) 0.5 mg-3 mg(2.5 mg base)/3 mL nebulizer solution USE 1 AMPULE IN NEBULIZER EVERY 6 HOURS NEEDED FOR SHORTNESS OF BREATH Active Entresto 24-26 mg tablet Take 1 tablet by mouth 2 (two) times daily. Active spironolactone (ALDACTONE) 25 MG tablet Take 1 tablet (25 mg total) by mouth daily. Active metoprolol succinate (TOPROL-XL) 25 MG 24 hr tablet Take 1 tablet (25 mg total) by mouth daily. Active Active Problems Problem Noted Date Diagnosed Date Spinal instabilities of lumbar region 07/09/2024 Acid reflux 07/02/2024 Aneurysm of ascending aorta 07/02/2024 CHF (congestive heart failure) 07/02/2024 COPD (chronic obstructive pulmonary disease) Hyperlipidemia 07/02/2024 Hypertension 07/02/2024 Polyneuropathy 07/02/2024 Raynaud's phenomenon 07/02/2024 Arthritis of left wrist 04/26/2023 Arthritis of right wrist 04/26/2023 Arthritis of right hand 04/26/2023 Arthritis of left hand 04/26/2023 Encounters Date Type Department Care Team Description 04/08/2025 Telephone [facility] Neurology - [address] [id number] Jong Moreno MD Appointment from Last 3 Months Family History Medical History Relation Name Comments Cancer Other Hypertension Other Kidney disease Other Relation Name Status Comments Other Social History Tobacco Use Types Packs/Day Years Used Date Smoking Tobacco: Every Day Cigarettes Smokeless Tobacco: Never Tobacco Cessation:Ready to Q uit: Not Asked; Counseling Given: Not Answered Alcohol Use Standard Drinks/Week Comments Not Currently 0 (1 standard drink = 0.6 oz pur e alcohol) [facility] - Mental Health Answer Date Recorde d Little interest or pleasure in doing things Not at all 07/02/2024 Feeling down, depressed, or hopeless Not at all 07/02/2024 Feeling of Stress Not on file 07/02/2024 [facility] Intimate Partner Violence Answer Da te Recorded Within the last year, have y ou been afraid of your partner or ex-partner? No 07/02/2024 Within the last year, have y ou been humiliated or emotionally abused in other ways by your partner or ex-partner? No Within the last year, have y ou been kicked, hit, slapped, or otherwise physically hurt by your partner or ex-partner? No 07/02/2024 Within the last year, have y ou been raped or forced to have any kind of sexual activity by your partner or ex-partner? No 07/02/2024 Utilities Answer Date Recorded In the past 12 months, has t he electric, gas, oil, or water company threatened to shut off services in your home? No 07/10/2024 Interpersonal Safety Answer Date Record ed How often does anyone, marlee perry family and friends, physically hurt you? Never 07/10/2024 How often does anyone, marlee prery family and friends, insult or talk down to you? Never 07/10/2024 How often does anyone, marlee perry family and friends, threaten you with harm? Never 07/10/2024 How often does anyone, marlonrafael vicky family and friends, scream or curse at you? Never 07/10/2024 Housing Stability Answer Date Recorded What is your living situation today? I have a st shi place to live 07/10/[address] you li ve. Do you have problems with any of the following? None of the above 07/10/2024 Food Insecurity Answer Date Recorded Within the past 12 months, y ou worried that your food would run out before you got money to buy more. Never true 07/10/2024 Within the past 12 months, t he food you bought just didn't last and you didn't have money to get more. Never true 07/10/2024 Transportation Needs Answer Date Record ed In the past 12 months, has l ack of reliable transportation kept you from medical appointments, meetings, work or from getting things needed for daily living? No 07/10/2024 Financial Resource Strain Answer Date R ecorded How hard is it for you to pa y for the very basics like food, housing, medical care, and heating? Would you say it is: Somewhat hard 07/10/2024 Employment Answer Date Recorded Do you want help finding or keeping work or a job? I do not need or want help 07/10/2024 Family and Community Support Answer Ashwin e Recorded If for any reason you need h elp with day-to-day activities such as bathing, preparing meals, shopping, managing finances, etc., do you get the help you need? I get all the help I need 07/10/2024 Feeling Lonely or Isolated 0 07/10 Educational Attainment Answer Date Chance rded Do you speak a language other than Thai at [facility]? No 07/10/2024 Do you want help with school or training? For example, starting or completing job training or getting a high school diploma, GED or equivalent. No 07/10/2024 Physical Activity Answer Date Recorded Number of minutes of exercise per week 40 07/10/2024 Self Management Answer Date Recorded Because of a physical, menta l, or emotional condition, do you have serious difficulty concentrating, remembering, or making decisions? (5 years or older) No 07/10/2024 Because of a physical, menta l, or emotional condition, do you have difficulty doing errands alone such as visiting a doctor's office or shopping? (15 years or older) No 07/10/2024 Substance Use Answer Date Recorded How many times in the past y ear have you used prescription drugs for non-medical reasons? Never 07/10/2024 How many times in the past year have you used il legal drugs? Never 07/10/2024 Mental Health Answer Date Recorded Calculation of above two rows 0 Comments No Sex and Gender Information Value Date Recorded Sex Assigned at Not on file Legal Sex Female 5:39 PM CDT Gender Identity Not on file Sexual Orientation Not on file Last Filed Vital Signs Vital Sign Reading Time Taken Comments Blood Pressure 102/62 02/12/2025 1:26 PM EDT Pulse 77 02/12/2025 1:26 PM EDT Temperature 36.6 C (97.8 F) 07/16/2024 11:29 AM EDT Respiratory Rate 18 07/16/2024 11:29 AM EDT Oxygen Saturation 98% 02/12/2025 1:26 PM EDT Inhaled Oxygen Concentration - - Weight 44.5 kg (98 lb) 02/12/2025 1:26 PM EDT Height 165.1 cm (5' 5 ) 02/12/2025 1:26 PM EDT Body Mass Index 16.31 02/12/2025 1:26 PM EDT Plan of Treatment Health Maintenance Due Date Last Done Comments CT Colonography 1959 Colonoscopy 1959 Colorectal Cancer Screening 1959 DXA SCAN 1959 FOBT/FIT 1959 Fit-DNA (Cologuard) 1959 Sigmoidoscopy 1959 Tobacco Cessation Counseling and Screening (12+) 1971 Hepatitis C Screening 1977 Pneumococcal 50+ years (1 of 2 - PCV) 1978 Breast Cancer Screening 1999 DTAP/TDAP/TD VACCINES (2 - T d or Tdap) 12/21/2007 12/21/1997 Shingles Vaccine (Zoster) (1 of 2) 2009 Respiratory Syncytial Virus (RSV) Adult or (1 - Risk 60-74 years 1-dose series) 2019 Medicare Initial AWV G0438 11/13/2023 COVID-19 VACCINE (5 - 2023-2 5 season) 2024 02/21/2021, 02/10/2021, 01/21/2021, Additional history exists Depression Screening (12+) 07/02/2025 07/02/2024 Influenza Vaccine (#1) 2025 Falls Risk Screening Completed 02/12/2025 Medical Devices Implanted Type Area Candy Packer Device Identifier Shelf Expiration Date Model / Serial / Lot Bone Putty Stimulan 10 620-010 - [id number] Implanted:Qty : 1 on 07/09/2024 by Jong Moreno MD at [facility] IMPLANTS N/A: Spine Lumbar BIOCOMPOSITES [id number] 05/11/2026 620-010 / / [id number] Bone Vivigen Frmble Cell 10[facility]-1600-003 - [id number] Implanted:Qty : 1 on 07/09/2024 by Jong Moreno MD at [facility] IMPLANTS N/A: Spine Lumbar LIFENET:LIFENET TRANSPLANT SRV 03/17/2025 -1600- 003 / [id number] / Scr Spne Meño Fix Fen 5x45mm - [id number] Implanted:Qty : 4 on 07/09/2024 by Jong Moreno MD at [facility] IMPLANTS N/A: Spine Lumbar J &J:DEPUY:DEPUY SPINE / / Mis Markus Ply Scrw Set Ti - [id number] Implanted:Qty : 16 on 07/09/2024 by Jong Moreon MD at [facility] IMPLANTS N/A: Spine Lumbar J &J:DEPUY:DEPUY SPINE / / Scr Spne Meño Fix Fen 5x50mm - [id number] Implanted:Qty : 2 on 07/09/2024 by Jong Moreno MD at [facility] IMPLANTS N/A: Spine Lumbar J &J:DEPUY:DEPUY SPINE / / Dave Spinal 5.5x80mm Ti [id number] - [id number] Implanted:Qty : 2 on 07/09/2024 by Jong Moreno MD at [facility] IMPLANTS N/A: Spine Lumbar J &J:DEPUY:DEPUY SPINE [id number] 85 / [id number] / Cement Spinal Confidence 2839-10-000 - [id number] Implanted:Qty : 1 on 07/09/2024 by Jong Moreno MD at [facility] IMPLANTS N/A: Spine Lumbar J &J:DEPUY:DEPUY SPINE 02/09/2026 2839-10- 000 / / [id number] Insurance [facility] ADV Advance Directives For more information, please contact: [phone] * Full Code (Latest Code Status on File) Date Activated Date Inactivated Comments 07/09/2024 6:43 PM 07/14/2024 9:07 AM Care Teams Gunite Nozzle Operator Relationship Specialty Start Date End Date Debora Mckeon APRN [address] [place] [id number] PCP - General Nurse Practitioner 04/26/23
--- OUTSIDE RECORDS SUMMARY | 2025-06-09 21:44 | XMS_ITS | Data Portability ---
Author Organization [place] [facility] Address [address] [facility] [address] [place] [address] Care Team Providers Care Associate Professor Of Art Name Role Phone CLAUDIO FRANK Urologist LEONEL OHARA Primary Care Provider Assessment Encounter Date Assessment Date Assessment LastModified by Organization Details LastModified Time 10/08/2018 10/08/2018 Neurogenic bladder status post successful voiding trial. She completely emptied today. She will follow-up in 2 weeks with a PVR or sooner should she have issues. Not available 10/08/2018 11:37:34 10/14/2018 10/14/2018 Mrs. Andrea is a 58-year-old female status post L2 [...] recorded. Lab urinalysis, dipstick, auto 2017 018 [email or web address] Not available 8 10:27:08 Referral orthopedic referral 2017 018 [email or web address] 18 [facility], [facility], [place], [address], 9 15:51:45 Procedures None recorded. Surgeries None recorded. Imaging None recorded. Medication Orders None recorded. Patient TargetsNo targets recorded. Patient Instructions Encounter Date Encounter Id Patient Instructions Last Modified By Organization Details Last Modified Time 10/29/2018 [id number] urinary retention: care instructions Not available 10/29/2018 10:27:08 Reason for Referral Orthopedic Referral for Pain of right shoulder joint Referring Physician: Ingrid Tong, Internal Medicine, Encounter Date: 10/28/2018 Results Created Date Observation Date Name Description Value Unit Range Abnormal Flag Note LastModifiedBy Organization Detail LastModifiedTime 10/29/20 18 10/29/2018 urina lysis , dipst ick, auto Unknown Analyte Yellow Not Available [facility] [address] [place], [address], 10/29/2018 10:08:02 10/29/20 18 10/29/2018 urina lysis , dipst ick, auto Unknown Analyte Clear Not Available [facility] [address] [place], [address], 10/29/2018 10:08:02 10/29/20 18 10/29/2018 urina lysis , dipst ick, auto Unknown Analyte 1.015 Not Available [facility] [address] [place], [address], 10/29/2018 10:08:02 10/29/20 18 10/29/2018 urina lysis , dipst ick, auto Unknown Analyte 5.0 Not Available [facility] [address] [place], [address], 10/29/2018 10:08:02 10/29/20 18 10/29/2018 urina lysis , dipst ick, auto Unknown Analyte Negati ve Not Available [facility] [address] [place], [address], 10/29/2018 10:08:02 10/29/20 18 10/29/2018 urina lysis , dipst ick, auto Unknown Analyte Negati ve Not Available [facility] [address] [place], [address], 10/29/2018 10:08:02 10/29/20 18 10/29/2018 urina lysis , dipst ick, auto Unknown Analyte Negtiv e Not Available [facility] [address] [place], [address], 10/29/2018 10:08:02 10/29/20 18 10/29/2018 urina lysis , dipst ick, auto Unknown Analyte Normal Not Available [facility] [address] [place], [address], 10/29/2018 10:08:02 10/29/20 18 10/29/2018 urina lysis , dipst ick, auto Unknown Analyte Negati ve Not Available [facility] [address] [place] [address], [address], 10/29/2018 10:08:02 10/29/20 18 10/29/2018 urina lysis , dipst ick, auto Unknown Analyte Normal Not Available [facility] [address], [address], 10/29/2018 10:08:02 10/29/20 18 10/29/2018 urina lysis , dipst ick, auto Unknown Analyte Negati ve Not Available [facility] [address], [address], 10/29/2018 10:08:02 10/29/20 18 10/29/2018 urina lysis , dipst ick, auto Unknown Analyte Negati ve Not Available [facility] [address], [address], 10/29/2018 10:08:02 10/29/20 18 10/29/2018 urina lysis , dipst ick, auto Unknown Analyte Clean Catch Not Available [facility] [address], [address], 10/29/2018 10:08:02 10/29/20 18 10/29/2018 urina lysis , dipst ick, auto Unknown Analyte Automa willie Not Available [facility] [address], [address], 10/29/2018 10:08:02 10/14/20 18 10/14/2018 XR, lumbo sacra l spine , 2 or [address] [address] Patien t Name: MARISA ramirez : 959 Megan t 59 Orderi ng Provid er: OBDULIO Lange KINA EXAM DATE: 2017 EXAM: XR LUMBAR [...] Hoang Hirsch MD on 018 3:[email or web address] [facility] [address], [address], 10/14/2018 17:23:01 12/16/19 19 12/16/2018 XR, lumbo sacra l spine , 2 or [address] [address] Patien t Name: MARISA ramirez : 958 Patidanielle ramirez 59 Orderi ng Provid er: OBDULIO Lange [...] MD on 12/16/19 19 3:10 PM [email or web address] [facility] [address] [place] [address], [address], 12/19/2018 18:34:51 01/01/20 24 11/27/2023 XR, sacro iliac joint (s) No observ ation record ed. [email or web address] Not Available 01/10 11:40:58 05/07/20 24 05/07/2024 CT, lumba r spine , w/o contr ast No observ ation record ed. [email or web address] [facility] [address], [place], [address], 05/21/2024 08:49:00 05/07/20 24 05/07/2024 MRI, lumba r spine , w/wo contr ast No observ ation record ed. [email or web address] [facility] [address], [place], [address], 06/04/2024 13:52:14 Result Notes Documentation Provider Name and Address Organization Details Recorded Time Xr, Lumbosacral Spine, 2 Or 3 View : [address] [address] Patient Name: MARISA ANDREA Patient : 1960 Patient Ordering Provider: DARREL CASTANON EXAM DATE: 10/14/2018 EXAM: XR LUMBAR AP/LAT CLINICAL INFORMATION: Postoperative. IMAGES PROVIDED: AP, lateral, and coned-down views of the lumbar spine. COMPARISON: None. FINDINGS AND IMPRESSION: Spinal fusion is noted at L1-S2 level with pedicular screws and connecting rods. Surgical hardware is satisfactorily placed. No evidence of loosening or infection is seen. Other levels are normal. Interpreted By: Edward Hirsch MD EL CASTANON MD [address] [place] [address], [address], [facility] 10/14/2018 17:23:01 Xr, Lumbosacral Spine, 2 Or 3 View : [address] [address] Patient Name: MARISA ANDREA Patient : 1960 Patient Ordering Provider: DARREL CASTANON EXAM DATE: 12/16/2018 EXAM: XR LUMBAR AP/LAT CLINICAL INFORMATION: Postoperative. IMAGES PROVIDED: AP, lateral, and coned-down views of the lumbar spine. COMPARISON: None. FINDINGS AND IMPRESSION: Spinal fusion is noted at L2-S2 level with pedicular screws and connecting rods. Surgical hardware is satisfactorily placed. No evidence of loosening or infection is seen. Other levels are normal. Interpreted By: Edward Hirsch MD EL CASTANON MD [address] [place] [address], [phone] 12/19/2018 18:34:51 Problems No Known Problems Procedures Surgical History Date Name Laterality Status Provider Name and Address Organization Details Recorded Time 8 Post Void Residual; Ultrasound completed [facility] 10/29/2018 10:07:58 8 Uroflowmetry; Complex completed [facility] 10/08/2018 11:26:56 8 Back Surgery completed Tamika Nelson [facility] 10/28/2018 14:13:30 Imaging Results None recorded. Procedure Notes None [...] Body mass index (BMI) Body weight Systolic And Diastolic Provider Name and Address Organization Details Last Updated DateTime 12/16/2018 167.64 cm 17.4 kg/m2 15460.98 g 128/82 mm[Hg] [facility] 12/16/2018 15:06:04 Date Recorded Body height Body mass index (BMI) Body weight Provider Name and Address Organization Details Last Updated DateTime 10/08/2018 167.64 cm 17.9 kg/m2 50505.75 g Adrienne Cheek [facility] 10/08/2018 11:15:49 Date Recorded Body height Body mass index (BMI) Body weight Systolic And Diastolic Provider Name and Address Organization Details Last Updated DateTime 10/14/2018 167.64 cm 17.9 kg/m2 30743.75 g 122/70 mm[Hg] [facility] 10/14/2018 14:49:05 Date Recorded Body height Body mass index (BMI) Body weight Body temperature Heart rate Respiratory rate Oxygen saturation Oxygen saturation in Arterial blood by Pulse oximetry Systolic And Diastolic Provider Name and Address Organization Details Last Updated DateTime 8 167.64 cm 17.5 kg/m2 74494.3 8 g 98.9 [degF] 90 /min 16 /min 99 % 99 % 98/60 mm[Hg] Tamika Nelson [facility] 8 14:08:41 Date Recorded Body height Body mass index (BMI) Body weight Provider Name and Address Organization Details Last Updated DateTime 10/29/2018 167.64 cm 17.4 kg/m2 26360.98 g Adrienne Piña [facility] 10/29/2018 10:06:43 Social History Question Answer Notes LastModified by Organizat ion Details LastModified Time Tobacco Smoking Status Current [facility] 13:28:19 What Is Your Level Of Caffeine Consumption? Moderate [email or web address] Information not available 10/28/2018 How Much Tobacco Do You Chew? None [email or web address] Information not available 10/28/2018 What Type Of Diet Are You Following? REGULAR [email or web address] Information not available 10/28/2018 Education 12 [email or web address] Information not available 10/28/2018 Are There Any Guns Present In Your Home? Yes [email or web address] Information not available 10/28/2018 Hard Of Hearing Or Deaf In One Or Both Ears? No [email or web address] Information not available 10/28/2018 Legally Blind In One Or Both Eyes? No [email or web address] Information not available 10/28/2018 Live Alone Or With Others? With Others [email or web address] Information not available 10/28/2018 What Was The Date Of Your Most Recent Tobacco Screening? 12/16/2018 Information not available 12/30/2019 How Many Children Do You Have? 1 [email or web address] Information not available 10/28/2018 Performs Monthly Self-breast Exam? Yes [email or web address] Information not available 10/28/2018 Seat Belts Used Routinely Yes [email or web address] Information not available 10/28/2018 At What Age Did You Start Smoking Tobacco? 28 [email or web address] Information not available 10/28/2018 Are You Passively Exposed To Smoke? No [email or web address] Information not available 10/28/2018 How Much Tobacco Do You Smoke? 1 PPD Information not available 06/19/2018 General Stress Level Medium [email or web address] Information not available 10/28/2018 How Many Years Have You Smoked Tobacco? 35 Information not available 06/19/2018 Sex: Unknown Functional Status Question Answer Note LastModified by Organizat ion Details LastModified Time What is your level of alcohol consumption? None [email or web address] Information not available 10/28/2018 Are you currently employed? Yes Information not available 10/28/2018 Are you able to care for yourself independently? 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 Occasional [email or web address] Information not available 10/28/2018 Mental Status None recorded. Family History Relationship Description Onset Age of this Age Resolved Age Notes LastModified by Organization Details LastModified Time Mother History of malignant neoplasm of brain [email or web address] Not available 14:13:54 Mother Hypertensive disorder [email or web address] Not available 14:14:08 Medical History Condition Response Coronary Artery Disease N Gout N Atrial Fibrillation N Kidney Stones N Parkinson's Disease N Hyperthyroidism N Alzheimer's N Hypothyroidism N Depression N COPD N Anemia N Difficulty Swallowing N MRSA exposure N Anxiety Disorder N Meniere's disease N Diabetes N Obesity N Arthritis Y Mental Disorder N Tuberculosis N AIDS/HIV N Congestive Heart Failure (CHF) N Cancer N Stroke N Diverticulitis N Asthma N Reflux/GERD N High Cholesterol N Liver Disease N Heart Disease N Pulmonary Embolism N Fibromyalgia N Hypertension N Chronic Ear Infections N Osteoporosis N Kidney Disease N Gynecological HistoryNo gynecological history recorded. Obstetrics History GPAL:G 0 P 0 0 0 0 Past Encounters Encounter ID Performer Location Encounter Start Date Encounter Closed Date Diagnosis/Indication Diagnosis SNOMED-CT Code Diagnosis ICD10 Code Diagnosis Note [id number] JANELLE LYONS JR, MD [facility]G [facility] [address] [place] [address] 06/19/2018 13:12:16 06/21/2018 13:03:03 Spinal stenosis of lumbar region 32776453 M48.062 Mrs. Andrea is a 58 year old lady who [...] her on the importance of smoking cessation. [id number] NEPTALI BHATTI PA-C [facility] [address] [place] [address] 08/08/2018 08:51:24 08/12/2018 14:15:31 Spinal stenosis of lumbar region 10848773 M48.096 [id number] CLAUDIO FRANK MD UROLOGY [facility] [address] [place], [place] [address] 10/08/2018 10:24:36 10/08/2018 12:58:56 Postoperative retention of urine 842517506 R33.8 [id number] DARREL CASTANON MD [facility] [address] [facility] [address] 10/14/2018 14:00:16 10/15/2018 09:28:09 Postoperative care 008494819 Z48.89 [id number] INGRID TONG MD INTERNAL MEDICINE [facility] CL[facility]ED [address] [facility] [address] 10/28/2018 13:36:53 10/28/2018 14:28:59 Pain of right shoulder joint 2770486684 5504485 M25.511 On 10/28/18, patient reported right shoulder pain after lifting and work on 08/22/18. [id number] CLAUDIO FRANK MD UROLOGY [facility] [address] [place] [address] 10/29/2018 09:55:11 10/30/2018 07:14:57 Retention of urine 318716736 R33.9 Bladder mu scle dysfunction - overactive 045724890 N32.81 [id number] DARREL CASTANON MD NEUROSURG [facility] [address] [place] [address] 12/16/2018 13:34:30 12/16/2018 15:43:34 Postoperative care 098810803 Z48.89 Health Concerns Section Related Observation LastModified by Organization Detai ls LastModified Time None Recorded Concern Status LastModified by Organization Details LastModified Time None Recorded Advance Directives Directive None Recorded Payers Insurance Date Sequence Insurance Name Policy Number Policy Umanzor Covered Member ID Umanzor Member ID Guarantor Name 07/21/2024 1 [place] Marisa Uriah [id number] Marisa Andrea 10/28/2018 [employer] Marisa Uriah 07/21/2024 1 [place] [id number] Marisa Pizano Uriah [id number] Marisa Uriah 07/21/2024 WELL[employer] (MEDICARE REPLACEMENT/ ADVANTAGE - HMO) Marisa Andrea [id number] Marisa Andrea 10/23/2024 1 [place] (MEDICARE REPLACEMENT/ ADVANTAGE - HMO) Marisa Andrea [id number] Marisa Andrea OBGyn Episode No OBEpisode recorded.
--- OUTSIDE RECORDS SUMMARY | 2025-06-09 21:44 | XMS_ITS | Referral Summary ---
Author Organization [facility] ([place], [place], [place], [place]) Address [address] [place] [address] Care Team Providers Care Drug Abuse Worker Name Role Phone Debora Mckeon APRN Primary Care Provider Encounters Date Type Department Care Team Description 04/08/2025 [facility] [address] [place] [address] Jong Moreno MD Appointment from Last 3 Months Allergies No known active allergies Medications carvediloL [...] hand 04/26/2023 Arthritis of left hand 04/26/2023 Social History Tobacco Use Types Packs/Day Years Used Date Smoking Tobacco: Every Day Cigarettes Smokeless Tobacco: Never Tobacco Cessation:Ready to Q uit: Not Asked; Counseling Given: Not Answered Alcohol Use Standard Drinks/Week Comments Not Currently 0 (1 standard drink = 0.6 oz pur e alcohol) [facility] - Mental Health Answer Date Recorde [...] does anyone, marlee [place] family and friends, insult or talk down to you? Never 07/10/2024 How often does anyone, marlee [place]ry family and friends, threaten you with harm? Never 07/10/2024 How often does anyone, marlee perry family and friends, scream or curse at [...] Do you speak a language other than Polish at [facility]? No 07/10/2024 Do you want help with [...] 02/12/2025 1:26 PM EDT Plan of Treatment Not on file Medical Devices Implanted Type Area Lard Renderer Device Identifier Shelf Expiration Date Model / Serial / Lot Bone Putty Stimulan 10 620-010 - [id number] Implanted:Qty : 1 on 07/09/2024 by Jong Moreno MD at [facility] IMPLANTS N/A: Spine Lumbar [employer] [id number] 05/11/2026 620-010 / / [id number] Bone Vivigen Frmble Cell [address] [place] [address] - [id number] Implanted:Qty : 1 on 07/09/2024 by Jong Moreno MD at [facility] IMPLANTS N/A: Spine Lumbar LIFENET:LIFENET TRANSPLANT SRV 03/17/2025 -1600- 003 / [id number] / Scr Spne Meño Fix Fen 5x45mm - [id number] Implanted:Qty : 4 on 07/09/2024 by Jong Moreno MD at [facility] IMPLANTS N/A: Spine Lumbar J &J:DEPUY:DEPUY SPINE / / Mis Markus Ply Scrw Set Ti - [id number] Implanted:Qty : 16 on 07/09/2024 by Jnog Moreno MD at [facility] IMPLANTS N/A: Spine Lumbar J &J:DEPUY:DEPUY SPINE / / Scr Spne Meño Fix Fen 5x50mm - [id number] Implanted:Qty : 2 on 07/09/2024 by Jong Moreno MD at [facility] IMPLANTS N/A: Spine Lumbar J &J:DEPUY:DEPUY SPINE / / Dave Spinal 5.5x80mm Ti - [id number] Implanted:Qty : 2 on 07/09/2024 by Jong Moreno MD at [facility] IMPLANTS N/A: Spine Lumbar J &J:DEPUY:DEPUY SPINE . 85 / .1 85 / Cement Spinal Confidence 283 - [id number] Implanted:Qty : 1 on 07/09/2024 by Jong Moreno MD at [facility] IMPLANTS N/A: Spine Lumbar J &J:DEPUY:DEPUY SPINE 02/09/2026 283 / / [id number] Insurance [facility] ADV Advance Directives For more information, please contact: [phone] * Full Code (Latest Code Status on File) Date Activated Date Inactivated Comments 07/09/2024 6:43 PM 07/14/2024 9:07 AM Care Teams Drug Abuse Worker Relationship Specialty Start Date End Date Debora Mckeon, [employer] HELPER [address] [place] [address] PCP - General Nurse Practitioner 04/26/23
--- NOTE | 2025-06-09 21:54 | HMH.EDGENADL ---
Discharge Plan Disposition Patient Disposition: Left Against Medical Advice Condition: Good Prescriptions Prescriptions: New cefdinir 300 mg capsule 300 mg PO BID 7 Days Qty: 14 0RF No Action linaclotide 145 MCG capsule 145 mcg PO DAILY omeprazole 20 mg capsule,delayed release(DR/EC) 20 mg PO DAILY Patient Comments: TAKE 1 CAPSULE BY MOUTH ONCE DAILY AROUND THE CLOCK rosuvastatin 10 mg tablet 10 mg PO HS Patient Comments: TAKE 1 TABLET BY MOUTH ONCE DAILY Trelegy Ellipta 200-62.5-25 mcg blister with device 1 inh INHALATION DAILY Patient Comments: INHALE 1 PUFF ONCE DAILY potassium chloride 20 mEq tablet,ER particles/crystals 20 meq PO DAILY Patient Comments: TAKE 1 TABLET BY MOUTH ONCE DAILY fluticasone propionate 50 mcg/actuation spray,suspension 1 spray INTRANASAL DAILY Patient Comments: USE 1 SPRAY(S) IN EACH NOSTRIL ONCE DAILY diclofenac sodium 75 mg tablet,delayed release (DR/EC) 75 mg PO BIDP PRN (Reason: ARTHRITIS PAIN) Patient Comments: TAKE 1 TABLET BY MOUTH TWICE DAILY WITH FOOD OR MILK nystatin 100,000 unit/mL Suspension 500,000 unit PO QID 10 Days Qty: 200 0RF cetirizine 10 mg tablet 10 mg PO DAILY Patient Comments: TAKE 1 TABLET BY MOUTH ONCE DAILY ergocalciferol (vitamin D2) 1,250 mcg (50,000 unit) capsule 1,250 mcg PO WEEKLY Patient Comments: TAKE 1 CAPSULE BY MOUTH ONCE A WEEK furosemide 40 mg Tablet 40 mg PO DAILY 30 Days Qty: 30 0RF prednisone 20 mg Tablet 40 mg PO DAILY 7 Days Qty: 14 0RF nicotine 21 mg/24 hr Patch 24 Hour 21 mg transdermal DAILY 30 Days Qty: 28 0RF metoprolol succinate 25 mg Tablet Extended Release 24 Hr 25 mg PO DAILY 30 Days Qty: 30 0RF sacubitril-valsartan [Entresto] 24-26 mg Tablet 1 tab PO BID 30 Days Qty: 60 0RF Trelegy Ellipta 100-62.5-25 mcg Blister With Device 1 inh inhalation DAILY 30 Days Qty: 60 0RF ipratropium-albuterol 0.5 mg-3 mg(2.5 mg base)/3 mL Solution For Nebulization 3 ml inhalation Q6HP PRN (Reason: Shortness Of Breath) 30 Days Qty: 180 0RF spironolactone 25 mg Tablet 25 mg PO DAILY 30 Days Qty: 30 0RF sodium chloride 1,000 mg Tablet,Soluble 1,000 mg PO DAILY 30 Days Qty: 30 0RF Referrals Follow up/Referrals: Debora Mckeon [Primary Care Provider, Medical] - See instructions Activity Restrictions/Add. Instructions Additional Instructions/Restrictions: Please take Cefdinir twice per day for the next 7 days. If you have any new or worsening symptoms please return to the ER for further evaluation. Clinical Impressions Clinical Impression: Pyelonephritis Instructions Patient Instructions: Kidney Infection Print Language Print Language: Macedonian Discharge ED Provider: Fabian Nuno General Adult HPI General Chief complaint: PAIN Stated complaint: Left side kidney swollen Time Seen by Provider: 06/09/25 21:54 Mode of Arrival: Wheelchair Source of Information: Patient Description of Symptoms (Recalled from ER Triage Doc. by RN): my kidney is swollen and painful It happens all the time History of Present Illness HPI narrative: This is a 65-year-old female patient, with past medical history of hypertension, chronic hyponatremia, CAD, heart failure, COPD on 2 L at baseline, and tobacco abuse, who is presenting to the emergency department today for evaluation of left flank pain. The patient states in her own words that her left kidney feels swollen. She has had no pain in her anterior abdomen or her chest. No shortness of breath or production of phlegm. She has had no fevers. She denies urinary symptoms including dysuria, hematuria, and increased urinary frequency. She is passing stools normally and is not experiencing hematochezia or melena. Related Data Home Medications ?Medication ?Instructions ?Recorded ?Confirmed linaclotide 145 mcg capsule 145 mcg PO DAILY 01/16/22 12/25/24 diclofenac sodium 75 mg 75 mg PO BIDP PRN ARTHRITIS PAIN 12/18/24 12/26/24 tablet,delayed release fluticasone fur. 200 mcg-umeclid 1 inh inhalation DAILY 12/18/24 12/25/24 62.5 mcg-vilant 25 mcg inhalat.powder (Trelegy Ellipta) fluticasone propionate 50 1 spray intranasal DAILY 12/18/24 12/25/24 mcg/actuation nasal spray,suspension omeprazole 20 mg capsule,delayed 20 mg PO DAILY 12/18/24 12/25/24 release potassium chloride 20 mEq 20 meq PO DAILY 12/18/24 12/25/24 tablet,extended release(part/cryst) rosuvastatin 10 mg tablet 10 mg PO HS 12/18/24 12/25/24 cetirizine 10 mg tablet 10 mg PO DAILY 12/26/24 12/26/24 ergocalciferol (vitamin D2) 1,250 1,250 mcg PO WEEKLY 12/26/24 12/26/24 mcg (50,000 unit) capsule Previous Rx's ?Medication ?Instructions ?Recorded nystatin 100,000 unit/mL oral 500,000 unit (5 mL) PO QID 10 days 12/19/24 suspension #200 mL fluticasone fur. 100 mcg-umeclid 1 inh inhalation DAILY 30 days #60 01/11/25 62.5 mcg-vilant 25 mcg ea inhalat.powder (Trelegy Ellipta) furosemide 40 mg tablet 40 mg PO DAILY 30 days #30 tabs 01/11/25 ipratropium 0.5 mg-albuterol 3 mg 3 ml inhalation Q6HP PRN Shortness 01/11/25 (2.5 mg base)/3 mL nebulization Of Breath 30 days #180 mL soln metoprolol succinate 25 mg 25 mg PO DAILY 30 days #30 tabs 01/11/25 tablet,extended release 24 hr nicotine 21 mg/24 hr daily 21 mg transdermal DAILY 30 days 01/11/25 transdermal patch #28 ea prednisone 20 mg tablet 40 mg (2 x 20 mg) PO DAILY 7 days 01/11/25 #14 tabs sacubitril 24 mg-valsartan 26 mg 1 tab PO BID 30 days #60 tabs 01/11/25 tablet (Entresto) sodium chloride 1,000 mg soluble 1,000 mg PO DAILY 30 days #30 tabs 01/11/25 tablet spironolactone 25 mg tablet 25 mg PO DAILY 30 days #30 tabs 01/11/25 cefdinir 300 mg capsule 300 mg PO BID 7 days #14 caps 06/10/25 Allergies Allergy/AdvReac Type Severity Reaction Status Date / Time No Known Allergies Allergy Verified 12/25/24 15:02 [facility] Disclaimer: The information contained in this section may have been updated after the patient was seen, as this information can be updated by other users. Medical History (Updated 06/10/25 @ 00:01 by Niels Arce RN) Pericardial effusion Acute urinary retention Right lower lobe pneumonia Adult failure to thrive Acute on chronic hypoxic respiratory failure Confusion COPD exacerbation Pneumonia MRSA pneumonia Unresolved pneumonia Pseudomonas pneumonia Acute respiratory failure with hypoxemia Encounter for screening for malignant neoplasm of lung in current smoker with 30 pack year history or greater Pleural thickening Lung nodule Tobacco abuse disorder Tobacco abuse counseling COPD (chronic obstructive pulmonary disease) Smoking greater than 30 pack years Dyspnea on exertion Surgical History Previous back surgery Family History Other No significant family history Social History (Updated 01/01/25 @ 12:13 by Anthony Green CRNA) Smoking Status: Current every day smoker tobacco type: cigarettes packs per day: 3 alcohol intake: never substance use type: denies use current occupational status: disabled Travel in the last 8 weeks?: None household members: significant other housing: house caffeine: Yes Have you lived/traveled outside [place] in past 30 days?: No Contact w/someone who lives/traveled outside [place] past 30 days?: No Exposure to someone with infectious disease in past 14 days?: No Do you have a fever (greater than 100.4 F or 38 C)?: No Have you tested positive for COVID-19?: No Exposed to someone with COVID-19 in past 14 days?: No Do you have a sore throat?: No Do you have a cough?: No Do you have any weakness?: No Do you have any diarrhea?: No Are you experiencing any unusual bleeding?: No Do you have any muscle aches/pain?: No Do you have any abdominal pain?: No Are you experiencing loss of taste or smell?: No Other Medical History Have you received the Flu Vaccine for this season: No Have you received the Pneumonia Vaccine: No ROS Obtained: Yes Systems reviewed as appropriate & no additional complaints except as documented Physical Exam General General appearance: alert and in no apparent distress Head Head exam: atraumatic and normocephalic Eye Eye exam: Present PERRL and EOMI ENT ENT exam: Present normal oropharynx and mucous membranes moist Neck Neck exam: Present full ROM and trachea midline Respiratory Respiratory exam: Present normal lung sounds bilaterally; Absent respiratory distress Cardiovascular Cardiovascular exam: Present regular rate and normal rhythm Abdominal Exam Abdominal exam: Present soft Extremities Exam Extremities exam: Present normal inspection; Absent tenderness Back Exam Back exam: Absent vertebral tenderness Neurological Exam Neurological exam: Present alert and oriented X3 Skin Skin exam: Present warm and dry Medical Decision Making Medical Records Medical records reviewed: Yes I reviewed the patient's medical records. Screening: Per USPSTF and CDC recommendations, given the prevalence of disease in our region, it is our hospital?s policy to screen for HIV and viral Hepatitis for all patients aged 18 and over and those with ongoing risk factors. [place] Inquiry Pt receiving controlled substance: No [place] was queried for this patient: No Vital Signs: 06/09/25 21:33 06/09/25 22:45 06/09/25 23:50 Temperature 97.7 F 98 F Temperature Source Oral Pulse Rate 101 H 95 H Pulse Rate [Left Radial] 120 H Respiratory Rate 20 16 19 Blood Pressure 140/89 144/72 H Blood Pressure [Right Radial Artery] 142/74 H Blood Pressure Mean [Right Radial Artery] 96 Blood Pressure Source [Right Radial Artery] Automatic Cuff Blood Pressure Position [Right Radial Artery] Sitting 02 Sat by Pulse Oximetry 91 L 96 Oxygen Delivery Method Room Air Nasal Cannula Nasal Cannula Oxygen Flow Rate (LPM) 2 2 Lab Data Lab Results 06/09/25 20:06: WBC 7.9, RBC 3.80 L, Hgb 9.8 L, Hct 30.5 L, MCV 80.3 L, MCH 25.8 L, MCHC 32.1, RDW 15.4, Plt Count 253, MPV 9.4, Neut % (Auto) 68.0, Lymph % (Auto) 21.5, [place] % (Auto) 8.9, Eos % (Auto) 0.5, Baso % (Auto) 0.8, Neut # (Auto) 5.4, Lymph # (Auto) 1.7, [place] # (Auto) 0.7, Eos # (Auto) 0.0, Baso # (Auto) 0.1, Sodium 125 L, Potassium 5.1, Chloride 88 L, Carbon Dioxide 29, Anion Gap 13.1, BUN 19 H, Creatinine 0.90, Estimated Creat Clear 46, Estimated GFR 63, Est GFR ( Amer) 76, Glucose 92, Calcium 10.0, Total Bilirubin 0.2, AST 26, ALT 15, Alkaline Phosphatase 141 H, Troponin I 0.02, Total Protein 8.0, Albumin 4.5, Globulin 3.5 H, Albumin/Globulin Ratio 1.3, Lipase 267 06/09/25 22:00: Urine Color Yellow, Urine Appearance Clear, Urine pH 6.5, Ur Specific [place] 1.010, Urine Protein Negative, Urine Glucose (UA) Negative, Urine Ketones Negative, Urine Blood Trace-i, Urine Nitrate Positive A, Urine Bilirubin Negative, Urine Urobilinogen 0.2, Ur Leukocyte Esterase 1+ A, Urine RBC 3-5, Urine WBC 5-10, Ur Squamous Epith Cells 3-5, Urine Bacteria 4+ 06/09/25 20:06 06/09/25 20:06 Orders (Tests/Meds): ED MEDICATIONS Discontinued Medications Generic Name Dose Route Start Last Admin Trade Name Freq PRN Reason Stop Dose Admin Iopamidol 75 ml 06/09/25 23:05 06/09/25 23:05 Iopamidol-370 (76%);100ml Bottle IV 06/09/25 23:06 75 ml ONCE ONE Administration Sodium Chloride 10 ml 06/09/25 23:05 06/09/25 23:05 Sodium Chloride 0.9% 10ml Syr (Rad Only) IV 07/09/25 23:04 10 ml NEEDED PRN Administration Maintain IV Site ORDERS Category Date Time Status CT abdomen pelvis w con Stat Cat Scan 06/09/25 22:31 Completed CBC w/Auto Diff [Complete Blood Count Auto Diff] Stat Lab 06/09/25 20:06 Completed CMP [Comprehensive Metabolic Panel] Stat Lab 06/09/25 20:06 Completed Lipase Stat Lab 06/09/25 20:06 Completed Troponin I Stat Lab 06/09/25 20:06 Completed UA [Urinalysis and Microscopic] Stat Lab 06/09/25 22:00 Completed Urine Culture Stat Micro 06/09/25 22:00 Received Medical Decision Narrative: This is a 65-year-old female patient who is presenting to the emergency department today for evaluation of a left swollen kidney which she infers to be left flank pain. Comorbidities include COPD, CHF, hypertension, and chronic hyponatremia as well as CAD. On initial evaluation of the patient they were resting comfortably in no acute distress and nontoxic in appearance. They are hemodynamically stable, saturating well on her baseline 2 L, and are neurologically intact. On physical examination of the patient has no abnormalities on auscultation of her chest bilaterally. She is moving air well bilaterally and is not experiencing wheezes. She does have mild upper abdominal tenderness in the epigastrium. There is no left upper quadrant or right upper quadrant tenderness. I have thoroughly palpated the patient's flanks and she does not demonstrate any evidence of CVA tenderness. Differential diagnosis to include pyelonephritis, ureterolithiasis, cystitis, pancreatitis, ACS/CO, acute kidney injury, hydronephrosis, among others. Workup was initiated with hematologic labs as well as urinalysis and a CT scan of the abdomen and pelvis with contrast. Labs were personally interpreted by me and demonstrates anemia that is stable from prior. No evidence of acute kidney injury or profound electrolyte derangement. She does seem to have chronic hypochloremia and chronic hyponatremia that is still present. Otherwise her urine does have nitrates, leukocyte esterase, 4+ bacteria, and 5-10 white blood cells which is consistent with urinary tract infection. CT scan was personally interpreted by me and demonstrates no evidence of pneumoperitoneum. Official radiology read is in agreement and states that there is interval development of significant right-sided hydronephrosis without urinary stricture or stone present. On repeat assessment of the patient she is resting comfortably and is in no acute distress. I have informed her of her results as well as the fact that we are still waiting on her second troponin to return as it could be possible that her left flank pain could be an atypical presentation of acute coronary syndrome, and her first troponin was 0.02. Upon informing the patient of this, she stated that she did not want to remain in the hospital any longer to follow-up her heart enzymes. She acknowledged the risks of leaving before the result of her second troponin including acute coronary syndrome, heart failure, and . She ultimately elected to sign an AGAINST MEDICAL ADVICE form and leave from the emergency department. Given that she does have evidence of urinary tract infection I have transmitted cefdinir 300 mg to be taken twice per day for the next 7 days to the pharmacy of her choosing. Patient was allowed to leave the emergency department in stable condition. Critical Care Critical Care Time Critical Care Time: No
[2025-06-09 22:15] LABS: Microscopic, Urine URINE MICROSCOPIC (MICROSCOPIC)
[2025-06-09 22:18] LABS: Hematocrit 30.5 % (37.0-47.0); Hemoglobin 9.8 g/dL (12.2-16.2); Immature Granulocytes % 0.3 %; Mean Corpuscular HGB Conc 32.1 g/dL (31.8-35.4); Mean Corpuscular Hemoglobin 25.8 pg (27.0-31.2); Mean Corpuscular Volume 80.3 fl (81-99); Nucleated Red Blood Cells % 0 %; Platelet Count 253 K/mm3 (142-424); Red Blood Count 3.80 M/mm3 (4.20-5.40); Red Cell Distribution Width-SD 44.5 fL; White Blood Count 7.9 K/mm3 (4.8-10.8)
[2025-06-09 22:26] LABS: Bilirubin,Urine Negative (Negative); Color,Urine YELLOW (Yellow); Glucose,Urine (UA) Negative (Negative); Ketones,Urine Negative (Negative); Leukocyte Esterase,Urine 1+ (Negative); PH,Urine 6.5 (5.0-8.5); Protein,Urine Negative (Negative); Specific Gravity, Urine 1.010 (1.005-1.030); Urobilinogen,Urine 0.2 EU/dl (0.2)
[2025-06-09 22:30] LABS: Alanine Aminotransferase 15 U/L (12-78); Albumin Level 4.5 g/dl (3.5-5.0); Albumin/Globulin Ratio 1.3 (1.1-1.8); Alkaline Phosphatase 141 U/L (38-126); Anion Gap 13.1 mEq/L (5-15); Aspartate Amino Transferase 26 U/L (14-36); Bilirubin,Total 0.2 mg/dl (0.2-1.3); Blood Urea Nitrogen 19 mg/dl (7-17); Calcium 10.0 mg/dl (8.4-10.2); Carbon Dioxide 29 mmol/L (22.0-30.0); Chloride 88 mmol/L (98-107); Creatinine Clearance Estimated 46 mL/min (50-200); Creatinine,Serum 0.90 mg/dl (0.52-1.04); Estimated Glomerular Filt Rate 63 ml/min (>60); GFR (African American) 76 ML/MIN (>60); Globulin 3.5 g/dL (1.3-3.2); Glucose 92 mg/dl (74-100); Potassium 5.1 mmoL/L (3.5-5.1); Sodium 125 mmol/L (136-145); Total Protein,Serum 8.0 g/dl (6.3-8.2)
--- NOTE | 2025-06-09 22:31 | CT_ITS ---
PROCEDURE INFORMATION: Exam: CT Abdomen And Pelvis With Contrast Exam date and time: 06/09/2025 10:58 PM Age: 65 years old Clinical indication: Abdominal pain TECHNIQUE: Imaging protocol: Computed tomography of the abdomen and pelvis with contrast. Radiation optimization: All CT scans at this facility use at least one of these dose optimization techniques: automated exposure control; mA and/or kV adjustment per patient size (includes targeted exams where dose is matched to clinical indication); or iterative reconstruction. Contrast material: ISOVUE; Contrast volume: 75 ml; Contrast route: IV; COMPARISON: 1. CT ANGIO CHEST PE PROTOCOL 01/05/2025 12:[address] ABDOMEN PELVIS W CON 12/25/2024 3:24 PM FINDINGS: Lungs: No acute finding. Liver: Persistent segment 7 hepatic lesion having the appearance of an hemangioma. Gallbladder and biliary ducts: Normal. No calcified stones. No ductal dilation. Pancreas: Normal. No ductal dilation. Spleen: Normal. No splenomegaly. Adrenal glands: Normal. No mass. Kidneys and ureters: There is diffuse atrophy of the left kidney. There is severe right hydronephrosis without ureteral dilation. Stomach and bowel: Unremarkable. No obstruction. No mucosal thickening. Appendix: No evidence of appendicitis. Intraperitoneal space: Unremarkable. No free air. No significant fluid collection. Vasculature: Unremarkable. No abdominal aortic aneurysm. Lymph nodes: Unremarkable. No enlarged lymph nodes. Urinary bladder: Unremarkable as visualized. Reproductive: There is a 15 mm partially calcified uterine fibroid. Bones/joints: There is extensive hardware fusion of the imaged thoracic and lumbar spine. There has been a vertebroplasty at several lower thoracic levels. Posterior decompression is noted throughout the lumbar region. No acute fracture. Soft tissues: Unremarkable. IMPRESSION: New severe right hydronephrosis without ureteral dilation or obstructing calculus. Further evaluation with retrograde pyelogram is recommended.
[2025-06-09 22:45] VITALS: BP 140/89; PULSE 101; RESP 16; O2SAT 96
[2025-06-09 23:02] LABS: Lipase 267 U/L (23-300)
[2025-06-09 23:03] LABS: Bacteria,Urine 4+ /lpf
[2025-06-09] MEDS: SODIUM CHLORIDE 0.9% 10ML SYR (RAD ONLY) 10 ML IV (23:05)
[2025-06-09] MEDS: IOPAMIDOL-370 (76%);100ML BOTTLE 75 ML IV (23:05)
[2025-06-09 23:15] LABS: Troponin I 0.02 ng/ml (0.00-0.034)
--- NOTE | 2025-06-09 23:49 | PC.NURSE ---
Report given to MONO Bowser.
[2025-06-09 23:50] VITALS: BP 144/72; PULSE 95; RESP 19; TEMP 36.6; O2SAT 93
--- NOTE | 2025-06-11 08:20 | PC.NURSE ---
Urine culture results reviewed by Dr. Canales. No new orders received.
--- NOTE | 2025-06-13 18:15 | PC.NURSE ---
I discussed the pts final urine culture with . NO change needed in treatment plan at this time.
== END 2025-06-10 00:01 | disposition left against medical advice (07) ==
PROVIDERS: Emergency Provider Student in an Organized Health Care Education/Training Program; PCP Nurse Practitioner Family
DX: N12 Tubulo-interstitial nephritis, not specified as acute or chronic (principal); E87.1 Hypo-osmolality and hyponatremia; J44.9 Chronic obstructive pulmonary disease, unspecified; F17.210 Nicotine dependence, cigarettes, uncomplicated
CPT/HCPCS: 74177; 80053; 81001; 83690; 84484; 85025; 87086; 87088; 87186; 99284; Q9967

== ENCOUNTER 2025-07-04 12:21 | Emergency (ER) | payer MEDICARE, MEDICAID, SELFPAY ==
[2025-07-04 13:12] VITALS: BP 120/54; PULSE 88; O2SAT 93
--- NOTE | 2025-07-04 13:14 | ED_ITS ---
<Statement entered by Eddie Canales MD - 07/04/25 17:38> I was consulted by the SENTHIL, and we discussed the complexity of the problems being addressed. I approve the treatment and management plan for this patient's care in the emergency department, thus performing a substantive portion of the medical decision making. Eddie Canales MD Discharge Plan Disposition Patient Disposition: Home, Self-Care Condition: Good Prescriptions Prescriptions: No Action linaclotide 145 MCG capsule 145 mcg PO DAILY omeprazole 20 mg capsule,delayed release(DR/EC) 20 mg PO DAILY Patient Comments: TAKE 1 CAPSULE BY MOUTH ONCE DAILY AROUND THE CLOCK rosuvastatin 10 mg tablet 10 mg PO HS Patient Comments: TAKE 1 TABLET BY MOUTH ONCE DAILY Trelegy Ellipta 200-62.5-25 mcg blister with device 1 inh INHALATION DAILY Patient Comments: INHALE 1 PUFF ONCE DAILY potassium chloride 20 mEq tablet,ER particles/crystals 20 meq PO DAILY Patient Comments: TAKE 1 TABLET BY MOUTH ONCE DAILY fluticasone propionate 50 mcg/actuation spray,suspension 1 spray INTRANASAL DAILY Patient Comments: USE 1 SPRAY(S) IN EACH NOSTRIL ONCE DAILY diclofenac sodium 75 mg tablet,delayed release (DR/EC) 75 mg PO BIDP PRN (Reason: ARTHRITIS PAIN) Patient Comments: TAKE 1 TABLET BY MOUTH TWICE DAILY WITH FOOD OR MILK nystatin 100,000 unit/mL Suspension 500,000 unit PO QID 10 Days Qty: 200 0RF cefdinir 300 mg capsule 300 mg PO BID 7 Days Qty: 14 0RF cetirizine 10 mg tablet 10 mg PO DAILY Patient Comments: TAKE 1 TABLET BY MOUTH ONCE DAILY ergocalciferol (vitamin D2) 1,250 mcg (50,000 unit) capsule 1,250 mcg PO WEEKLY Patient Comments: TAKE 1 CAPSULE BY MOUTH ONCE A WEEK furosemide 40 mg Tablet 40 mg PO DAILY 30 Days Qty: 30 0RF prednisone 20 mg Tablet 40 mg PO DAILY 7 Days Qty: 14 0RF nicotine 21 mg/24 hr Patch 24 Hour 21 mg transdermal DAILY 30 Days Qty: 28 0RF metoprolol succinate 25 mg Tablet Extended Release 24 Hr 25 mg PO DAILY 30 Days Qty: 30 0RF sacubitril-valsartan [Entresto] 24-26 mg Tablet 1 tab PO BID 30 Days Qty: 60 0RF Trelegy Ellipta 100-62.5-25 mcg Blister With Device 1 inh inhalation DAILY 30 Days Qty: 60 0RF ipratropium-albuterol 0.5 mg-3 mg(2.5 mg base)/3 mL Solution For Nebulization 3 ml inhalation Q6HP PRN (Reason: Shortness Of Breath) 30 Days Qty: 180 0RF spironolactone 25 mg Tablet 25 mg PO DAILY 30 Days Qty: 30 0RF sodium chloride 1,000 mg Tablet,Soluble 1,000 mg PO DAILY 30 Days Qty: 30 0RF Referrals Follow up/Referrals: Provider,Referral, MD [Referring, Medical] - See instructions Activity Restrictions/Add. Instructions Additional Instructions/Restrictions: Please return back to the emergency department in 7 to 10 days to have sutures removed or to your family doctor's office, please utilize Vaseline or antibiotic ointment around the wound, keep the area clean and dry and covered, please monitor for any signs of infection. Clinical Impressions Clinical Impression: Laceration of right calf Instructions Patient Instructions: DI for Abrasion, DI for Laceration Repair -- Complex Print Language Print Language: French Discharge ED Provider: Eddie Canales General Adult HPI General Chief complaint: Extremity Injury, Lower Stated complaint: rt calf laceration Time Seen by Provider: 07/04/25 13:09 Mode of Arrival: Ambulatory Source of Information: Patient and Relative Limitations: No Limitations History of Present Illness HPI narrative: 65 yr-old female presents emergency department accompanied by her brother for a right leg calf laceration, patient states that she slipped and fell back on her my walker , cutting her leg, patient has any fever chills chest pain shortness of breath nausea vomiting constipation diarrhea, no urinary symptomatology, patient is a current everyday smoker, denies any alcohol or drug use, presyncopal or syncopal event, denies completely falling striking the head as her walker , caught her. Initial triage vitals are unremarkable. Other past medical history is consistent with SIADH, COPD, IBS, GERD, hyperlipidemia, CHF, COPD. Please note that above description of symptoms, in this electronic medical record under categorization of recalled from ER triage doctor by RN are reflective of an initial nursing assessment, however, is not reflective of my full history and physical exam that was personally taken and clarified. Consequentially, this preceding description of symptoms, which may include the patient's categorized chief complaint in the EMR, do not reflect my personal clinical impression, and the ultimate description of history of present illness and patient stated complaints should be deferred to this section of the note. Unless stated otherwise or congruent with this section of the note, additional signs, symptoms, or incongruence should be interpreted as inaccurate with my clinical impression. Onset (ago): hour(s) Related Data Home Medications ?Medication ?Instructions ?Recorded ?Confirmed linaclotide 145 mcg capsule 145 mcg PO DAILY 01/16/22 12/25/24 diclofenac sodium 75 mg 75 mg PO BIDP PRN ARTHRITIS PAIN 12/18/24 12/26/24 tablet,delayed release fluticasone fur. 200 mcg-umeclid 1 inh inhalation RAKLE Y 12/18/24 12/25/24 62.5 mcg-vilant 25 mcg inhalat.powder (Trelegy Ellipta) fluticasone propionate 50 1 spray intranasal DAILY 05/0612/25/24 mcg/actuation nasal spray,suspension omeprazole 20 mg capsule,delayed 20 mg PO DAILY 12/25/24 release potassium chloride 20 mEq 20 meq PO DAILY 12/18/24 tablet,extended release(part/cryst) rosuvastatin 10 mg tablet 10 mg PO HS 12/18/24 5 cetirizine 10 mg tablet 10 mg PO DAILY 12/26/2412/13 ergocalciferol (vitamin D2) 1,250 1,250 mcg PO WEEKLY 12/26/24 12/26/24 mcg (50,000 unit) capsule Previous Rx's ?Medication ?Instructions ?Recorded nystatin 100,000 unit/mL oral 500,000 unit (5 mL) PO Q ID 10 days 12/19/24 suspension #200 mL fluticasone fur. 100 mcg-umeclid 1 inh inhalation RAKEL Y 30 days #60 01/11/25 62.5 mcg-vilant 25 mcg ea inhalat.powder (Trelegy Ellipta) furosemide 40 mg tablet 40 mg PO DAILY 30 days #30 t abs 01/11/25 ipratropium 0.5 mg-albuterol 3 mg 3 ml inhalation Q6HP PRN Shortness 01/11/25 (2.5 mg base)/3 mL nebulization Of Breath 30 days #180 mL soln metoprolol succinate 25 mg 25 mg PO DAILY 30 days #30 tabs 01/11/25 tablet,extended release 24 hr nicotine 21 mg/24 hr daily 21 mg transdermal DAILY 30 days 01/11/25 transdermal patch #28 ea prednisone 20 mg tablet 40 mg (2 x 20 mg) PO DAILY 7 days 01/11/25 #14 tabs sacubitril 24 mg-valsartan 26 mg 1 tab PO BID 30 days #60 tabs 01/11/25 tablet (Entresto) sodium chloride 1,000 mg soluble 1,000 mg PO DAILY 30 days #30 tabs 01/11/25 tablet spironolactone 25 mg tablet 25 mg PO DAILY 30 days #30 tabs 01/11/25 cefdinir 300 mg capsule 300 mg PO BID 7 days #14 cap s 06/10/25 Allergies Allergy/AdvReac Type Severity Reaction Status Date / Time No Known Allergies Allergy Verified 12/25/24 15:02 [facility] Disclaimer: The information contained in this section may have been updated after the patient was seen, as this information can be updated by other users. Medical History (Updated 07/04/25 @ 14:12 by ANY Agarwal) Pericardial effusion Acute urinary retention Right lower lobe pneumonia Adult failure to thrive Acute on chronic hypoxic respiratory failure Confusion COPD exacerbation Pneumonia MRSA pneumonia Unresolved pneumonia Pseudomonas pneumonia Acute respiratory failure with hypoxemia Encounter for screening for malignant neoplasm of lung in current smoker with 30 pack year history or greater Pleural thickening Lung nodule Tobacco abuse disorder Tobacco abuse counseling COPD (chronic obstructive pulmonary disease) Smoking greater than 30 pack years Dyspnea on exertion Surgical History Previous back surgery Family History Other No significant family history Social History (Updated 01/01/25 @ 12:13 by Anthnoy Green CRNA) Smoking Status: Current every day smoker tobacco type: cigarettes packs per day: 3 alcohol intake: never substance use type: denies use current occupational status: disabled Travel in the last 8 weeks?: None household members: significant other housing: house caffeine: Yes Have you lived/traveled outside US in past 30 days?: No Contact w/someone who lives/traveled outside US past 30 days?: No Exposure to someone with infectious disease in past 14 days?: No Do you have a fever (greater than 100.4 F or 38 C)?: No Have you tested positive for COVID-19?: No Exposed to someone with COVID-19 in past 14 days?: No Do you have a sore throat?: No Do you have a cough?: No Do you have any weakness?: No Do you have any diarrhea?: No Are you experiencing any unusual bleeding?: No Do you have any muscle aches/pain?: No Do you have any abdominal pain?: No Are you experiencing loss of taste or smell?: No Other Medical History Have you received the Flu Vaccine for this season: No Have you received the Pneumonia Vaccine: No ROS Obtained: Yes All systems reviewed & no additional complaints except as documented Physical Exam General General appearance: alert and in no apparent distress Head Head exam: atraumatic and normocephalic Eye Eye exam: Present PERRL and EOMI ENT ENT exam: Present mucous membranes moist Neck Neck exam: Present normal inspection Chest Chest inspection: Present normal inspection and symmetric chest wall rise Respiratory Respiratory exam: Present normal lung sounds bilaterally; Absent respiratory distress Cardiovascular Cardiovascular exam: Present regular rate and normal rhythm Abdominal Exam Abdominal exam: Present soft; Absent tenderness, guarding or rebound Extremities Exam Extremities exam: Present normal inspection Neurological Exam Neurological exam: Present alert and oriented X3 Psychiatric Psychiatric exam: Present normal affect Skin Skin exam: Present warm, dry and other (There is a skin tear/avulsion to the posterior aspect of the right calf, with a small laceration, that is approximately 2 to 3 cm in diameter.) Medical Decision Making Medical Records Medical records reviewed: Yes I reviewed the patient's medical records. Screening: Per USPSTF and CDC recommendations, given the prevalence of disease in our region, it is our hospital?s policy to screen for HIV and viral Hepatitis for all patients aged 18 and over and those with ongoing risk factors. Kayden Inquiry Pt receiving controlled substance: No Kayden was queried for this patient: No Vital Signs: 07/04/25 13:12 07/04/25 13:20 07/04/25 13:30 Temperature 97.7 F Temperature Source Oral Pulse Rate 88 79 Pulse Rate [Right] 83 Respiratory Rate 18 Blood Pressure 120/54 L 101/50 L Blood Pressure [Right Arm] 120/54 L Blood Pressure Mean [Right Arm] 76 02 Sat by Pulse Oximetry 93 L 94 L 93 L Oxygen Delivery Method Room Air Room Air Room Air Lab Data Lab results reviewed: Yes I reviewed the patient's lab results. Orders (Tests/Meds): ED MEDICATIONS Discontinued Medications Generic Name Dose Route Start Last Admin Trade Name Joyce PRN Reason Stop Dose Admin Lidocaine HCl 5 ml 07/04/25 13:14 Lidocaine 1% 5ml Pf Vial IJ 07/04/25 13:15 ONCE ONE Tetanus/Reduced Diphtheria/Acell Pertussis 0.5 ml 07/04/25 13:15 Tet/Diphth/Pert-Adult 0.5ml Syringe IM 07/04/25 13:16 .ONCE ONE Medical Decision Narrative: 65-year-old female presents the emergency department with a right leg injury/laceration, differential diagnosis include but not limited to, avulsion injury, laceration, abrasion among others. I discussed this patient's case with the attending physician Patient is unsure of his tetanus prophylaxis, will utilize Hibiclens and normal saline to copiously irrigate the wound, will update patient's tetanus prophylaxis here in the emergency department, I utilized 10 mL lidocaine 1% without epi, local, around the edges of the patient's wound, patient has irregular skin flap, with abrasion, and subcutaneous fat showing, wound edges/margins revitalize after five 4-0 nylon sutures, patient tolerated proc edure well, dressing was applied, skin tear/suture and wound precautions given to the patient at the bedside patient will need to present back to the emergency department within 7 to 10 days or PCPs office to remove the sutures. Patient was given strict ED return precautions, monitor for any worsening signs or symptoms of infection. Patient family voiced understanding and agreed with the treatment plan/discharge plan. Procedures Laceration Laceration 1: Site: lower extremity Side (If applicable): right Size (cm): 3 Description: flap and irregular Depth: involves subcutaneous layer Local Anesthetic: lidocaine 1% Amount of anesthesia used (mL): 10 Pre-repair: irrigated extensively, deep structures intact and wound margins revised Skin layer closed with: nylon Size (cm): 4-0 Number of sutures: 5 Technique: simple, interrupted and running Critical Care Critical Care Time Critical Care Time: No
--- OUTSIDE RECORDS SUMMARY | 2025-07-04 13:15 | XMS_ITS | Clinical Summary ---
Author Organization [facility] Address [address] [place] [address] Phone Care Team Providers Care Property Insurance Inspector Name Role Phone Concepción Campbella Unavailable [ ] Conditions or Problems Problem Name Problem Code Onset Date Status Entry Date Provider Comment Standard Description Annotate Drug rash 60308342 (SNOMED CT) 03/16 Active 03/16 Lloyd Campbell [...] of diseases classified elsewhere cellulitis, shoulder, right 43802309 (SNOMED CT) 01/08 Active 01/08 Teresita Sawyer [...] twice a day 0 SULFAMETHOXAZO LE-TRIMETHOPRI M [id number] Lloyd Campbell MD ERTAPENEM SODIUM 1 GM SOLR 1 gm IV Q 24 hrs/OPAT 7 ERTAPENEM SODIUM [id number] Danielle Hanson RN BACTRIM DS 800-160 MG TABS Take on pill twice daily. 7 SULFAMETHOXAZO LE-TRIMETHOPRI M [id number] Lloyd Campbell MD ERTAPENEM SODIUM 1 GM SOLR 1 gm IV Q 24 hrs/OPAT 7 ERTAPENEM SODIUM [id number] Marium Medina RN DICLOFENAC POTASSIUM TABS Take by mouth twice a day 7 DICLOFENAC POTASSIUM TABS [id number] Gricelda Nigel GABAPENTIN 300 MG CAPS 7 GABAPENTIN [id number] Claire Kathy LINZESS 145 MCG CAPS 7 LINACLOTIDE [id number] Claire Donie Medications Administered No information available. Allergies, Adverse [...] Entry Date CPT-labs Labs CPT-sl STAT Labs CPT-06681 CMP [id number] CBC with Differential 2019 CPT-88931 C- reactive protein CPT-76034 Sedimentation Rate (ESR) 202 CPT-LAB Other CPT-Cooral Continue oral antibiotics 20 31/03/19 [id number] CBC with Differential 2019 CPT-65814 CMP CPT-20432 Sedimentation Rate (ESR) 202 CPT-36362 C- reactive protein CPT-Cooral Continue oral antibiotics 20 31/03/05 [id number] CBC with Differential 2019 CPT-42882 CMP CPT-72697 Sedimentation Rate (ESR) 202 CPT-19091 C- reactive protein CPT-sl STAT Labs CPT-Cooral Continue oral antibiotics 20 01/03/21 [id number] CBC with Differential 2019 CPT-41426 CMP CPT-07197 Sedimentation Rate (ESR) 202 CPT-38457 C- reactive protein CPT-sl STAT Labs CPT-ca Continue IV antibiotics 2019 [id number] CBC with Differential 2019 CPT-17733 CMP CPT-91664 Sedimentation Rate (ESR) 202 CPT-34386 C- reactive protein CPT-kathie New Oral Antibiotic CPT-sl STAT Labs CPT-40095 CMP [id number] CBC with Differential 2019 CPT-73406 C- reactive protein CPT-28167 Sedimentation Rate (ESR) 202 CPT- stat weekly Stat Weekly Labs CPT-sl STAT Labs CPT-81160 CMP [id number] CBC with Differential 2019 CPT-13611 C- reactive protein CPT-84129 Sedimentation Rate (ESR) 202 CPT-sl STAT Labs CPT-19757 CMP [id number] CBC with Differential 2019 CPT-60533 C- reactive protein CPT-32175 Sedimentation Rate (ESR) 202 CPT-sl STAT Labs CPT-46686 CMP [id number] CBC with Differential 2019 CPT-73876 C- reactive protein CPT-47338 Sedimentation Rate (ESR) 202 CPT-sl STAT Labs CPT-85839 PICC Line Insertion CPT-sl STAT Labs CPT-94459 CMP [id number] CBC with Differential 2019 CPT-47601 C- reactive protein CPT-88934 Sedimentation Rate (ESR) 202 CPT- stat weekly [...]
--- OUTSIDE RECORDS SUMMARY | 2025-07-04 13:16 | XMS_ITS | Encounter Summary ---
Author Organization Healthcare Address [address] [place] [address] Care Team Providers Care Copywriting Intern Name Role Phone Melanie Brice Primary Care Provider [phone] Debora Mckeon APRN Unavailable [phone] Encounter Details Date Type Department Care Team (Late st Contact Info) Description 08/05/2023 Orders Only External Location [address] [place] [address] Provider, External Social History Tobacco Use Types [...] documented as of this encounter Care Teams Copywriting Intern Relationship Specialty Start Date End Date Melanie Brice [address] [place], [place] [id number] PCP - General Family Medicine 01/11/22 Debora Mckeon APRN [address] [place] [address] Referring Physician 01/11/22 documented as of this encounter
--- OUTSIDE RECORDS SUMMARY | 2025-07-04 13:16 | XMS_ITS | Referral Summary ---
Author Organization [facility] ([place], [place], [place], [place]) Address [address] [place] [address] Care Team Providers Care Cashier Supervisor Name Role Phone Debora Mckeon APRN Primary Care Provider Encounters Date Type Department Care Team Description 04/08/[address] [facility] [address] [facility] [address] [place] [address] Jong Moreno MD Appointment from [...] drink = 0.6 oz pur e alcohol) [facility] - Mental Health Answer Date Recorde d [...] Do you speak a language other than Bahamian at [facility]? No 07/10/2024 Do you want help [...] on file Medical Devices Implanted Type Area Plant Technician/Control Room Operator Device Identifier Shelf Expiration Date Model / Serial / Lot Bone Putty Stimulan 10 620-010 - [id number] Implanted:Qty : 1 on 07/09/2024 by Jong Moreno MD at [facility] IMPLANTS N/A: Spine Lumbar [employer] [id number] 05/11/2026 620-010 / / [id number] Bone Vivigen Frmble Cell [address] [place] [address]003 - [id number] Implanted:Qty : 1 on 07/09/2024 by Jong Moreno MD at [facility] IMPLANTS N/A: Spine Lumbar LIFENET:LIFENET TRANSPLANT SRV 03/17/2025 -1600- 003 / [id number] / Scr Spne Meño Fix Fen 5x45mm - [id number] Implanted:Qty : 4 on 07/09/2024 by Jong Moreno MD at [facility] IMPLANTS N/A: Spine Lumbar J &J:DEPUY:DEPUY SPINE / / Mis Markus Ply Scrw Set Ti - [id number] Implanted:Qty : 16 on 07/09/2024 by Jong Moreno MD at [facility] IMPLANTS N/A: Spine Lumbar J &J:DEPUY:DEPUY SPINE / / Scr Spne Meño Fix Fen 5x50mm - [id number] Implanted:Qty : 2 on 07/09/2024 by Jong Moreno MD at [facility] IMPLANTS N/A: Spine Lumbar J &J:DEPUY:DEPUY SPINE / / Dave Spinal 5.5x80mm Ti - [id number] Implanted:Qty : 2 on 07/09/2024 by Jong Moreno MD at [facility] IMPLANTS N/A: Spine Lumbar J &J:DEPUY:DEPUY SPINE . 85 / .1 85 / Cement Spinal Confidence 283 - [id number] Implanted:Qty : 1 on 07/09/2024 by Jong Moreno MD at [facility] IMPLANTS N/A: Spine Lumbar J &J:DEPUY:DEPUY SPINE 02/09/2026 283 / / [id number] Insurance [facility] ADV Advance Directives For more information, please contact: [phone] * Full Code (Latest Code Status on File) Date Activated Date Inactivated Comments 07/09/2024 6:43 PM 07/14/2024 9:07 AM Care Teams Cashier Supervisor Relationship Specialty Start Date End Date Debora Mckeon, TEACHER [employer]ARLY CHILDHOOD DEVELOPMENT [address] [place] [address] PCP - General Nurse Practitioner 04/26/23
--- OUTSIDE RECORDS SUMMARY | 2025-07-04 13:16 | XMS_ITS | Encounter Summary ---
Author Organization Healthcare Address [address] [place] [address] Care Team Providers Care Clinical Fellow Name Role Phone Melanie Brice Primary Care Provider [phone] Debora Mckeon MOPHEAD TRIMMER AND WRAPPER Unavailable [phone] Reason for Visit * Reason Comments Med Refill Encounter Details Date Type Department Care Team (Late st Contact Info) Description 03/16/2024 Refill [facility] [address] [place] [address] Lyly November, MOPHEAD TRIMMER AND WRAPPER [address] [place] [address] Seronegative rheumatoid arthritis of multiple [...] * Telephone Encounter - Lyly November Mar, MOPHEAD TRIMMER AND WRAPPER - 03/17/2024 10:46 AM EDT She no [...] documented as of this encounter Care Teams Clinical Fellow Relationship Specialty Start Date End Date Melanie Brice [address] [place] [id number] PCP - General Family Medicine 01/11/22 Debora Mckeon APRN [address] [place] [address] Referring Physician 01/11/22 documented as of this encounter
--- OUTSIDE RECORDS SUMMARY | 2025-07-04 13:16 | XMS_ITS | Clinical Summary ---
Author Organization [facility] Address [address] [place] [address] Care Team Providers Care Solid Fiber Paster Operator Name Role Phone Melanie Brice Primary Care Provider [phone] Allergies No known active allergies Medications linaclotide [...] 06/09/2024, 024 Medical Devices Implanted Type Area Art Display Maker Device Identifier Shelf Expiration Date Model / Serial / Lot Stem Hum Liz Equinoxe Pressfit 6mm Sht - [id number] - [id number] Implanted:Qty : 1 on 12/15/2019 by Nemesio Ku MD at [facility] Implant Right: Shoulder EXACTECH 06/23/2029 [id number] / [id number] / N/A Liner Hum Equinoxe Rev Shldr 38 Pls0 - [id number] - [id number] Implanted:Qty : 1 on 12/15/2019 by Nemesio Ku MD at [facility] Implant Right: Shoulder EXACTECH 08/31/2024 [id number] / [id number] / N/A Try Hum Equinoxe Adpt Rev Shldr Pls0 - [id number] - [id number] Implanted:Qty : 1 on 12/15/2019 by Nemesio Ku MD at [facility] Implant Right: Shoulder EXACTECH 10/22/2029 [id number] / [id number] / N/A Totl Shldr Aug Plt Arthroplasty Upchrg - [id number] Implanted:Qty : 1 on 12/15/2019 by Nemesio Ku MD at [facility] Implant Right: Shoulder EXACTECH CAPSHOULTOTUPCHR GEXA C / / Totl Shldr Rev Ttl Exactech - [id number] Implanted:Qty : 1 on 12/15/2019 by Nemesio Ku MD at [facility] Implant Right: Shoulder EXACTECH CAPSHOUDREVEXACT TL / / Plt/Jnt Khurram Equinoxe Aug/Superior 10d - [id number] - [id number] Implanted:Qty : 1 on 12/15/2019 by Nemesio Ku MD at [facility] Implant Right: Shoulder EXACTECH 08/19/2029 [id number] / [id number] / N/A Scrw Compr Equinoxe Lk 4.5x26mm - [id number] - [id number] Implanted:Qty : 1 on 12/15/2019 by Nemesio Ku MD at [facility] Implant Right: Shoulder EXACTECH 10/02/2024 [id number] / [id number] / N/A Scrw Compr Equinoxe Lk 4.5x18mm - [id number] - [id number] Implanted:Qty : 1 on 12/15/2019 by Nemesio Ku MD at [facility] Implant Right: Shoulder EXACTECH 07/05/2024 [id number] / [id number] / N/A Scrw Compr Equinoxe Lk 4.5x26mm - [id number] - [id number] Implanted:Qty : 1 on 12/15/2019 by Nemesio Ku MD at [facility] Implant Right: Shoulder EXACTECH 05/06/2024 [id number] / [id number] / N/A Scrw Compr Equinoxe Lk 4.5x26mm - [id number] - [id number] Implanted:Qty : 1 on 12/15/2019 by Nemesio Ku MD at [facility] Implant Right: Shoulder EXACTECH 03/31/2024 [id number] / [id number] / N/A Scrw Equinx Glenosphere Lk - [id number] - [id number] Implanted:Qty : 1 on 12/15/2019 by Nemesio Ku MD at [facility] Implant Right: Shoulder EXACTECH 05/21/2024 [id number] / [id number] / N/A Glenosphere Equinx Rev Shldr 38mm - [id number] - [id number] Implanted:Qty : 1 on 12/15/2019 by Nemesio Ku MD at [facility] Implant Right: Shoulder EXACTECH 09/15/2029 [id number] / [id number] / N/A Scrw Equinoxe Torq Define Rev Shldr Kt - [id number] - [id number] Implanted:Qty : 1 on 12/15/2019 by Nemesio Ku MD at [facility] Implant Right: Shoulder EXACTECH 10/19/2024 [id number] / [id number] / N/A Liner Hum Equinoxe Rev Shldr 38 Pls0 - [id number] Implanted:Qty : 1 on 01/05/2020 by Nemesio Ku MD at [facility] Implant Right: Shoulder EXACTECH 12/11/2024 [id number] / / [id number] Insurance [employer] [facility] [employer] WORK [employer] Advance Directives * CPR [...] pulse or is breathing): Full Care Teams Solid Fiber Paster Operator Relationship Specialty Start Date End Date Melanie Brice PA [address] [facility] [address] [place] [address] PCP - General Physician Artillery Maintenance Supervisor 08/01/18
--- OUTSIDE RECORDS SUMMARY | 2025-07-04 13:16 | XMS_ITS | Encounter Summary ---
Author Organization [facility] Address [address] [place] [address] Care Team Providers Care Sales Communications Manager Name Role Phone Mleanie Brice Primary Care Provider [phone] Debora Mckeon CIRCUS LABORER Unavailable [phone] Reason for Referral * Consultation (Routine) - Closed Specialty Diagnoses / Procedures Referred By Joanna t Referred To Contact Rheumatology Diagnoses Rheumatoid arthritis of multiple sites without rheumatoid factor (CMS/HCC) Debora Mckeon APRN [address] [place] [address] Phone: tel: fax: Referral ID Status Reason Start Date Expiration Date V isits Requested Visits Authorized [id number] Closed Specialty Services Required 10/17/2023 04/17/2025 1 1 Encounter Details Date Type Department Care Team (Late st Contact Info) Description 10/17/2023 Community [facility] Community Practice [address] [place] [address] Debora Mckeon APRN [address] [place] [address] Rheumatoid arthritis of multiple sites [...] as of this encounter Care Teams Sales Communications Manager Relationship Specialty Start Date End Date Melanie Brice [address] [place] [address] PCP - General Family Medicine 01/11/22 Debora Mckeon APRN [address] [place] [address] Referring Physician 01/11/22 documented as of this encounter
--- OUTSIDE RECORDS SUMMARY | 2025-07-04 13:16 | XMS_ITS | Clinical Summary ---
Author Organization [facility] Address [facility] [place] [address] Care Team Providers Care House Detective Name Role Phone Unavailable Primary Care Provider [...] Screening 11/12/2024 Influenza Vaccination (#1) 2025 Insurance [facility] [employer] [place] MEDICARE Advance Directives For more information, please contact: [phone] * Full Code (Latest Code Status on File) Date Activated Date Inactivated Comments 08/04/2023 1:58 PM No automated c hest compression devices for VAD Patients
--- OUTSIDE RECORDS SUMMARY | 2025-07-04 13:16 | XMS_ITS | Encounter Summary ---
Author Organization [facility] Address [address] [place] [address] Care Team Providers Care Building Trades Teacher Name Role Phone Melanie Brice Primary Care Provider [phone] Debora Mckeon WATER QUALITY ASSISTANT Unavailable [phone] Encounter Details Date Type Department Care Team (Late st Contact Info) Description 01/04/2022 Community [facility] Community Practice [address] [place] [address] Debora Mckeon APRN [address] [place] [address] Hemoptysis (Primary Dx) Social History [...] Primary documented in this encounter Care Teams Building Trades Teacher Relationship Specialty Start Date End Date Melanie Brice [address] [place] [address] PCP - General Family Medicine 01/11/22 Debora Mckeon APRN [address] [place] [address] Referring Physician 01/11/22 documented as of this encounter
--- OUTSIDE RECORDS SUMMARY | 2025-07-04 13:16 | XMS_ITS | Clinical Summary ---
Author Organization [facility] Address [address] [place] [address] Care Team Providers Care Master Control Operator Name Role Phone Melanie Brice Primary Care Provider [phone] Debora Mckeon APRN Unavailable [phone] Allergies No known active allergies Medications diclofenac [...] tabletIndicatio ns:Seronegative rheumatoid arthritis of multiple sites ([facility]/HCC) 6 tablets at the same time once weekly. Take with food 24 tablet 2 4 Active Additional Information Patient not taking.Reported on 06/09/2024 potassium chloride CR (Klor-Con M20) 20 MEQ ER tablet Take 1 tablet (20 mEq) by mouth 1 (one) time each day. 4 Active folic acid (Folvite) 1 MG tabletIndicatio ns:Seronegative rheumatoid arthritis of multiple sites ([facility]/HCC) Take 1 tablet by mouth once daily [...] Scan 1959 [facility]-Medicare Annual Wellness (AWV) 1959 [facility]-/Child/Adol SDOH Screenings 1959 [facility]- SDOH Screenings 1977 [...] - Risk 60-74 years 1-dose series) 2019 [facility]-KBPOY-45 Vaccine ( season) 2024 02/21/2021, 02/10/2021, 01/21/2021, [...] Antigen Negative Negative 11/27/2023 2:16 PM EST [facility] Hepatitis C Antibody Negative Negative 11/27/2023 2:16 PM EST [facility] Hepatitis A Antibody IgM Negative Negative 11/27/2023 2:16 PM EST [facility] Hepatitis B Core Antibody IgM Negative Negative 11/27/2023 2:16 PM EST [facility] Blood Venous blood specimen / Unknown Venipuncture / Unknown 11/27/2023 11:16 AM EST 11/27/2023 11:19 AM EST November [facility] BLOOD ORDERABLES Final Result [facility] [address] [place] [address] from Last 3 Months or Most Recently Relevant to Health Maintenance Insurance [employer] Care Teams Master Control Operator Relationship Specialty Start Date End Date Melanie Brice [address] [place] [address] PCP - General Family Medicine 01/11/22 Debora Mckeon APRN [address] [place] [address] Referring Physician 01/11/22
--- OUTSIDE RECORDS SUMMARY | 2025-07-04 13:16 | XMS_ITS | Encounter Summary ---
Author Organization [facility] Address [address] [place] [address] Care Team Providers Care Wing Coverer Name Role Phone Unavailable Primary Care Provider Unavailabl e Encounter Details Date Type Department Care Team (Late st Contact Info) Description 08/13/2023 Telephone [facility] Physicians - Pulmonary Medicine, [facility] [address] [facility] [address] [place] [id number] Dong Ruth DO [address] [place] [address]. [address] [place], [place] [id number] Social History Tobacco Use Types Packs/Day Years [...] 08/13/2023 9:57 AM EDT Patient seen in [facility]. Please send any medical records pertaining to pulmonology to her hotel yardperson, Dr Kelsey Cornell. [phone] FX [phone] documented in this encounter Plan of Treatment Not on file documented as of this encounter Visit Diagnoses Not on filedocumented in this encounter
--- OUTSIDE RECORDS SUMMARY | 2025-07-04 13:16 | XMS_ITS | Clinical Summary ---
Author Organization [facility] ([place], [place], [place], [place]) Address [address] [place] [address] Care Team Providers Care Business Transformation Analyst Name Role Phone Debora Mckeon APRN Primary [...] Type Department Care Team Description 04/08/2025 Telephone [facility] Neurology - [address] [address] Jong Moreno MD Appointment from [...] drink = 0.6 oz pur e alcohol) [facility] - Mental Health Answer Date Recorde d [...] Do you speak a language other than Irish at [facility]? No 07/10/2024 Do you want help with [...] Additional history exists Depression Screening (12+) 07/02/2025 Influenza Vaccine (#1) 2025 Falls Risk Screening Completed 02/12/2025 Medical Devices Implanted Type Area Success Coach Device Identifier Shelf Expiration Date Model / Serial / Lot Bone Putty Stimulan 10 620-010 - [id number] Implanted:Qty : 1 on 07/09/2024 by Jong Moreno MD at [facility] IMPLANTS N/A: Spine Lumbar BIOCOMPOSITES [id number] 05/11/2026 620-010 / / [id number] Bone Vivigen Frmble Cell [address] [place], [place] [id number] - [id number] Implanted:Qty : 1 on 07/09/2024 by Jong Moreno MD at [facility] IMPLANTS N/A: Spine Lumbar LIFENET:LIFENET TRANSPLANT SRV 03/17/2025 -1600- 003 / [id number] / Scr Spne Meño Fix Fen 5x45mm - [id number] Implanted:Qty : 4 on 07/09/2024 by Jong Moreno MD at [facility] IMPLANTS N/A: Spine Lumbar J &J:DEPUY:DEPUY SPINE 5 / / Mis Markus Ply Scrw Set Ti - Implanted:Qty : 16 on 07/09/2024 by Jong Moreno MD at [facility] IMPLANTS N/A: Spine Lumbar J &J:DEPUY:DEPUY SPINE / / Scr Spne Meño Fix Fen 5x50mm - [id number] Implanted:Qty : 2 on 07/09/2024 by Jong Moreno MD at [facility] IMPLANTS N/A: Spine Lumbar J &J:DEPUY:DEPUY SPINE / / Dave Spinal 5.5x80mm Ti 185 - [id number] Implanted:Qty : 2 on 07/09/2024 by Jong Moreno MD at [facility] IMPLANTS N/A: Spine Lumbar J &J:DEPUY:DEPUY SPINE 633.1 85 / [id number] / Cement Spinal Confidence 2839-10-000 - [id number] Implanted:Qty : 1 on 07/09/2024 by Jong Moreno MD at [facility] IMPLANTS N/A: Spine Lumbar J &J:DEPUY:DEPUY SPINE 02/09/2026 2839-10- 000 / / [id number] Insurance [facility] Advance Directives For more information, please contact: [phone] * Full Code (Latest Code Status on File) Date Activated Date Inactivated Comments 07/09/2024 6:43 PM 07/14/2024 9:07 AM Care Teams Business Transformation Analyst Relationship Specialty Start Date End Date Debora Mckeon, MANJU [address] [place] [address] PCP - General Nurse Practitioner 04/26/23
--- OUTSIDE RECORDS SUMMARY | 2025-07-04 13:16 | XMS_ITS | Clinical Summary ---
Author Organization [facility] Address [address] [facility] [address] [place] [address] Care Team Providers Care Continuous Process Machine Operator Name Role Phone Unavailable Primary Care Provider [...]
--- OUTSIDE RECORDS SUMMARY | 2025-07-04 13:16 | XMS_ITS | Encounter Summary ---
Author Organization [facility] Address [address] [place] [address] Care Team Providers Care Fan Installer Name Role Phone Melanie Brice Primary Care Provider [phone] Debora Mckeon APRN Unavailable Encounter Details Date Type Department Care Team (Late st Contact Info) Description 11/20/2023 Orders Only External Location [address] [place] [address] Provider, External Social History Tobacco Use Types [...] documented as of this encounter Care Teams Fan Installer Relationship Specialty Start Date End Date Melanie Brice [address] [place] [address] PCP - General Family Medicine 01/11/22 Debora Mckeon APRN [address] [place], [place] [address] Referring Physician 01/11/22 documented as of this encounter
--- OUTSIDE RECORDS SUMMARY | 2025-07-04 13:16 | XMS_ITS | Patient Health Record ---
Author Organization [facility] Address [address] [place] [address] Care Team Providers Care Fiberglass Product Tester Name Role Phone RAMON MONCADA Primary Care Provider Reason For Referral No Information Medications Medication SIG (Take, Route, Frequency, Duration) Notes Start Date End Date Status Zithromax Z-Danis 250 mg 1 (one) tablet(s) or oral once a day; Duration: five 03/27/2012 Active Medrol (Danis) 4 mg 1 (one) pack oral on oral once a day; Duration: one 10/13/2016 Active Combivent 90 mcg-18 mcg/inh 2 (two) puffs inhala inhalation every 6 hours; Duration: thirty 03/27/2012 Active Flexeril 10 mg 1 (one) tablet(s) or oral 3 times a day; Duration: one 10/13/2016 Active Plan Of Treatment No Information Insurance Providers Payer Name Payer Address Payer Phone Subscriber Number Group Number Insured Name Patient Relationship to Insured Coverage Start Date Coverage End Date [employer] [facility] [address] [place] [address] [id number] Marisa Martino Self - patient is the insured
[2025-07-04 13:20] VITALS: BP 120/54; PULSE 83; RESP 18; TEMP 36.5; O2SAT 94; BMI 19.1
[2025-07-04 13:30] VITALS: BP 101/50; PULSE 79; O2SAT 93
[2025-07-04] MEDS: TET/DIPHTH/PERT-ADULT 0.5ML SYRINGE 0.5 ML IM (14:16)
[2025-07-04 14:29] VITALS: BP 107/54; PULSE 77; RESP 18; TEMP 36.7; O2SAT 94
== END 2025-07-04 14:30 | disposition home or self-care (01) ==
PROVIDERS: Emergency Provider Student in an Organized Health Care Education/Training Program; PCP Nurse Practitioner Family
DX: S81.811A Laceration without foreign body, right lower leg, initial encounter (principal); F17.210 Nicotine dependence, cigarettes, uncomplicated; W01.10XA Fall on same level from slipping, tripping and stumbling with subsequent striking against unspecified object, initial encounter
CPT/HCPCS: 12032; 90471; 90715; 99283

== ENCOUNTER 2025-08-15 07:51 | Emergency (ER) | payer MEDICARE, MEDICAID, SELFPAY ==
[2025-08-15] VITALS (9 sets, daily range): BP systolic 95–119; BP diastolic 51–68; PULSE 74–94; RESP 16–20; TEMP 36.4–36.8; O2SAT 91–98; BMI 20.1
--- OUTSIDE RECORDS SUMMARY | 2025-08-15 08:02 | XMS_ITS | Patient Health Record ---
Author Organization [facility] Address [address] [place] [address] [address] [place] [place] [address] Care Team Providers Care Cost Estimating Manager Name Role Phone RAMON MONCADA Primary Care Provider [phone] Reason For Referral No Information Medications Medication [...] Insured Coverage Start Date Coverage End Date [employer] [facility] [address] [place] [address] [id number] Marisa Martino Self - patient is the insured
--- OUTSIDE RECORDS SUMMARY | 2025-08-15 08:02 | XMS_ITS | Clinical Summary ---
Author Organization [facility] Address [address] [place] [address] Phone Care Team Providers Care Explosive Ordnance Specialist Name Role Phone Concepción Campbella Unavailable [ ] Conditions or Problems Problem Name Problem Code Onset Date Status Entry Date Provider Comment Standard Description Annotate Drug rash 37679414 (SNOMED CT) 03/16 Active 03/16 Lloyd Campbell [...] of diseases classified elsewhere cellulitis, shoulder, right [id number] (SNOMED CT) 01/08 Active 01/08 Teresita Sawyer [...] twice a day 0 SULFAMETHOXAZO LE-TRIMETHOPRI M [id number] Lloyd Campbell MD ERTAPENEM SODIUM 1 GM SOLR 1 gm IV Q 24 hrs/OPAT 7 ERTAPENEM SODIUM [id number] Danielle Hanson RN BACTRIM DS 800-160 MG TABS Take on pill twice daily. 7 SULFAMETHOXAZO LE-TRIMETHOPRI M [id number] Lloyd Campbell MD ERTAPENEM SODIUM 1 GM SOLR 1 gm IV Q 24 hrs/OPAT 7 ERTAPENEM SODIUM 80528384069 Marium Medina RN DICLOFENAC POTASSIUM TABS Take by mouth twice a day 7 DICLOFENAC POTASSIUM TABS 52871276286 Gricelda Nigel GABAPENTIN 300 MG CAPS 7 GABAPENTIN 01480352750 Claire Kathy LINZESS 145 MCG CAPS 7 LINACLOTIDE [id number] Claire Boise Medications Administered No information available. Allergies, Adverse [...] Entry Date CPT-labs Labs CPT-sl STAT Labs CPT-65819 CMP [id number] CBC with Differential 2019 CPT-33165 C- reactive protein CPT-45641 Sedimentation Rate (ESR) 202 CPT-LAB Other CPT-Cooral Continue oral antibiotics 20 31/03/19 [id number] CBC with Differential 2019 CPT-13929 CMP CPT-13813 Sedimentation Rate (ESR) 202 CPT-13629 C- reactive protein CPT-Cooral Continue oral antibiotics 20 31/03/05 [id number] CBC with Differential 2019 CPT-76998 CMP CPT-38484 Sedimentation Rate (ESR) 202 CPT-41305 C- reactive protein CPT-sl STAT Labs CPT-Cooral Continue oral antibiotics 20 01/03/21 [id number] CBC with Differential 2019 CPT-33358 CMP CPT-74865 Sedimentation Rate (ESR) 202 CPT-48947 C- reactive protein CPT-sl STAT Labs CPT-ca Continue IV antibiotics 2019 [id number] CBC with Differential 2019 CPT-80411 CMP CPT-86347 Sedimentation Rate (ESR) 202 CPT-89879 C- reactive protein CPT-kathie New Oral Antibiotic CPT-sl STAT Labs CPT-45174 CMP [id number] CBC with Differential 2019 CPT-09612 C- reactive protein CPT-22636 Sedimentation Rate (ESR) 202 CPT- stat weekly Stat Weekly Labs CPT-sl STAT Labs CPT-02065 CMP [id number] CBC with Differential 2019 CPT-93252 C- reactive protein CPT-54372 Sedimentation Rate (ESR) 202 CPT-sl STAT Labs CPT-99076 CMP [id number] CBC with Differential 2019 CPT-73069 C- reactive protein CPT-07553 Sedimentation Rate (ESR) 202 CPT-sl STAT Labs CPT-37408 CMP [id number] CBC with Differential 2019 CPT-64956 C- reactive protein CPT-74881 Sedimentation Rate (ESR) 202 CPT-sl STAT Labs CPT-24746 PICC Line Insertion CPT-sl STAT Labs CPT-52155 CMP [id number] CBC with Differential 2019 CPT-92986 C- reactive protein CPT-75053 Sedimentation Rate (ESR) 202 CPT- stat weekly [...]
--- OUTSIDE RECORDS SUMMARY | 2025-08-15 08:02 | XMS_ITS | Encounter Summary ---
Author Organization [facility] Address [address] [place] [address] Care Team Providers Care Lien Searcher Name Role Phone Melanie Brice Primary Care Provider [phone] Debora Mckoen APRN Unavailable [phone] Encounter Details Date Type Department Care Team (Late st Contact Info) Description 08/05/2023 Orders Only External Location [address] [place] [address] Provider, External Social History Tobacco Use Types [...] documented as of this encounter Care Teams Lien Searcher Relationship Specialty Start Date End Date Melanie Brice [address] [place], [place] [address] PCP - General Family Medicine 01/11/22 Debora Mckeon APRN [address] [place] [address] Referring Physician 01/11/22 documented as of this encounter
--- OUTSIDE RECORDS SUMMARY | 2025-08-15 08:02 | XMS_ITS | Clinical Summary ---
Author Organization [facility] Address [address] [facility] [address] [place] [address] Care Team Providers Care Hourly Sign Language Interpreter Name Role Phone Unavailable Primary Care Provider Unavailabl e Social History Tobacco Use Types Packs/Day Years Used Date Smoking Tobacco: Never Assessed Comments Unknown Sex and Gender Information Value Date Recorded Sex Assigned at Not on file Legal Sex Female 10:42 AM EDT Gender Identity Not on file Sexual Orientation Not on file Plan of Treatment Not on file
--- OUTSIDE RECORDS SUMMARY | 2025-08-15 08:02 | XMS_ITS | Encounter Summary ---
Author Organization [facility] Address [address] [place] [address] Care Team Providers Care Field Support Representative Name Role Phone Melanie Brice Primary Care Provider [phone] Debora Mckeon EARLY CHILDHOOD SPECIALIST Unavailable [phone] Reason for Referral * Consultation (Routine) - Closed Specialty Diagnoses / Procedures Referred By Joanna t Referred To Contact Rheumatology Diagnoses Rheumatoid arthritis of multiple sites without rheumatoid factor (CMS/HCC) Debora Mckeon APRN [address] [place] [address] Phone: tel: fax: Referral ID Status Reason Start Date Expiration Date V isits Requested Visits Authorized [id number] Closed Specialty Services Required 10/17/2023 04/17/2025 1 1 Encounter Details Date Type Department Care Team (Late st Contact Info) Description 10/17/2023 Community [facility] Community Practice [address] [place] [address] Debora Mckeon APRN [address] [place] [address] Rheumatoid arthritis of multiple sites [...] as of this encounter Care Teams Field Support Representative Relationship Specialty Start Date End Date Melanie Brice [address] [place] [address] PCP - General Family Medicine 01/11/22 Debora Mckeon APRN [address] [place] [address] Referring Physician 01/11/22 documented as of this encounter
--- OUTSIDE RECORDS SUMMARY | 2025-08-15 08:02 | XMS_ITS | Clinical Summary ---
Author Organization Healthcare Address [address] [place] [address] Care Team Providers Care Radiosonde Operator Name Role Phone Melanie Brice Primary Care Provider [phone] Debora Mckeon APRN Unavailable [phone] Allergies No known active allergies Medications diclofenac [...] tabletIndicatio ns:Seronegative rheumatoid arthritis of multiple sites ([facility]) 6 tablets at the same time once weekly. Take with food 24 tablet 2 4 Active Additional Information Patient not taking.Reported on 06/09/2024 potassium chloride CR (Klor-Con M20) 20 MEQ ER tablet Take 1 tablet (20 mEq) by mouth 1 (one) time each day. 4 Active folic acid (Folvite) 1 MG tabletIndicatio ns:Seronegative rheumatoid arthritis of multiple sites ([facility]) Take 1 tablet by mouth once daily 30 tablet 5 Active Active Problems Problem Noted Date Diagnosed Date Dyspnea on exertion 06/11/2024 Lung nodule 06/11/2024 Heart murmur 06/11/2024 Pleural thickening 06/11/2024 Degeneration of lumbar intervertebral disc 06/03 Tobacco use disorder 12/07/2023 Candidiasis of skin 10/08/2023 Gastro-esophageal reflux disease with esophagiti s 10/08/2023 Multiple joint pain 08/31/2023 Abscess of skin of right wrist 07/18/2023 Arthritis of right wrist 04/26/2023 Arthritis of left wrist 04/26/2023 Arthritis of right hand 04/26/2023 Arthritis of left hand 04/26/2023 Candidiasis of mouth 10/16/2022 Acute exacerbation of chronic obstructive pulmon elizabeth disease 10/10/2022 Carpal tunnel syndrome 07/26/2022 Chronic myelopathy 07/26/2022 Chronic obstructive pulmonary disease 07/26/2022 Overview (06/11/2024): States uses O2@l1 primarily at night- has started using during day also Congestive heart failure 07/26/2022 Irritable bowel syndrome 07/26/2022 Mixed hyperlipidemia 07/26/2022 Polyneuropathy 07/26/2022 Spinal stenosis 07/26/2022 Vitamin D deficiency 07/26/2022 Hx of emphysema 01/13/2022 Adenopathy 01/13/2022 Ascending aorta dilatation 01/13/2022 HTN (hypertension) 01/12/2022 Resolved Problems Problem Noted Date Diagnosed Date Resolved Date Second hand smoke exposure 12/07/2023 0 08/02/2025 Acute urinary tract infection 12/26/2022 08/02/2025 Peripheral edema 08/14/2022 08/02/2025 Fatigue 07/26/2022 08/02/2025 Acute postoperative pain 12/16/2019 Immunizations Immunization Administration Dates Next Due Moderna COVID-19 Vaccine (Re d Cap) 12+ years 02/21/2021,02/10/2021,01/21/2021,2020 TD (adult), 2 Lf tetanus tox oid, preservative free, adsorbed 12/21/1997 Social History Tobacco Use Types Packs/Day Years Used Date Smoking Tobacco: Every Day Cigarettes 1 36.8 Started: 1988 Passive Smoke Exposure: Current Smokeless [...] - Risk 60-74 years 1-dose series) 2019 [facility]-Lung Cancer Screening 06/09/20252023, 02/08/2024, 08/05/2023 [id number] Vaccine ( season) 2025 02/21/2021, 02/10/2021, 01/21/2021, Additional history exists [facility]-Influenza Vaccine (#1) 2025 [facility]-Depression Screening 10/20/2025 [...] 06/09/2024 8:38 AM Final report signed by Krao Workman MD on 06/09/2024 8:49 AM Narrative [...] Karo Workman MD on 06/09/2024 8:49 AM us Luther Hurtado MD IMG CT PROCEDURES Final Resul t * Acute Hepatitis Panel (11/27/2023 11:16 AM EST) Hepatitis B Surf Antigen Negative Negative 11/27/2023 2:16 PM EST [facility] Hepatitis C Antibody Negative Negative 11/27/2023 2:16 PM EST [facility] Hepatitis A Antibody IgM Negative Negative 11/27/2023 2:16 PM EST [facility] Hepatitis B Core Antibody IgM Negative Negative 11/27/2023 2:16 PM EST [facility] Blood Venous blood specimen / Unknown Venipuncture / Unknown 11/27/2023 11:16 AM EST 11/27/2023 11:19 AM EST november R Lyly NUNES [facility] BLOOD ORDERABLES Final Result [facility] [address] [place] [address] from Last 3 Months or Most Recently Relevant to Health Maintenance Insurance [employer] Care Teams Radiosonde Operator Relationship Specialty Start Date End Date Melanie Brice [address] [place] [address] PCP - General Family Medicine 01/11/22 Debora Mckeon APRN [address] [place] [address] Referring Physician 01/11/22
--- OUTSIDE RECORDS SUMMARY | 2025-08-15 08:02 | XMS_ITS | Clinical Summary ---
Author Organization [facility] Address [address] [place] [address] Care Team Providers Care Field Director Name Role Phone Melanie Brice Primary Care Provider [phone] Allergies No known active allergies Medications linaclotide [...] 08/30/2018 PT PLAN OF CARE 04/13/2020 01/14/2020 INFLUENZA VACCINE 06/12/2025 COVID-19 Vaccine ( season) 2025 LUNG CANCER SCREENING Discontinued 06/09/2024, 024 Medical Devices Implanted Type Area Watcher Automat Long Goods Device Identifier Shelf Expiration Date Model / Serial / Lot Stem Hum Liz Equinoxe Pressfit 6mm Sht - [id number] - [id number] Implanted:Qty : 1 on 12/15/2019 by Nemesio Ku MD at [facility] Implant Right: Shoulder EXACTECH 06/23/2029 [id number] / [id number] / N/A Liner Hum Equinoxe Rev Shldr 38 Pls0 - [id number] - [id number] Implanted:Qty : 1 on 12/15/2019 by Nemesio Ku MD at [facility] Implant Right: Shoulder EXACTECH 08/31/2024 [id number] / [id number] / N/A Try Hum Equinoxe Adpt Rev Shldr Pls0 - [id number] - [id number] Implanted:Qty : 1 on 12/15/2019 by Nemesio Ku MD at [facility] Implant Right: Shoulder EXACTECH 10/22/2029 [id number] / [id number] / N/A Totl Shldr Aug Plt Arthroplasty Upchrg - [id number] Implanted:Qty : 1 on 12/15/2019 by Nemesio Ku MD at [facility] Implant Right: Shoulder EXACTECH CAPSHOULTOTUPCHR GEXA C / / Totl Shldr Rev Ttl Exactech - [id number] Implanted:Qty : 1 on 12/15/2019 by Nemesio Ku MD at [facility] Implant Right: Shoulder EXACTECH CAPSHOUDREVEXACT TL / / Plt/Jnt Khurram Equinoxe Aug/Superior 10d - [id number] - [id number] Implanted:Qty : 1 on 12/15/2019 by Nemesio Ku MD at [facility] Implant Right: Shoulder EXACTECH 08/19/2029 [id number] / [id number] / N/A Scrw Compr Equinoxe Lk 4.5x26mm - [id number] - [id number] Implanted:Qty : 1 on 12/15/2019 by Nemesio Ku MD at [facility] Implant Right: Shoulder EXACTECH 10/02/2024 [id number] / [id number] / N/A Scrw Compr Equinoxe Lk 4.5x18mm - [id number] - [id number] Implanted:Qty : 1 on 12/15/2019 by Nemesio Ku MD at [facility] Implant Right: Shoulder EXACTECH 07/05/2024 [id number] / [id number] / N/A Scrw Compr Equinoxe Lk 4.5x26mm - [id number] - [id number] Implanted:Qty : 1 on 12/15/2019 by Nemesio Ku MD at [facility] Implant Right: Shoulder EXACTECH 05/06/2024 [id number] / [id number] / N/A Scrw Compr Equinoxe Lk 4.5x26mm - [id number] - [id number] Implanted:Qty : 1 on 12/15/2019 by Nemesio Ku MD at [facility] Implant Right: Shoulder EXACTECH 03/31/2024 [id number] / [id number] / N/A Scrw Equinx Glenosphere Lk - [id number] - [id number] Implanted:Qty : 1 on 12/15/2019 by Nemesio Ku MD at [facility] Implant Right: Shoulder EXACTECH 05/21/2024 [id number] / [id number] / N/A Glenosphere Equinx Rev Shldr 38mm - [id number] - [id number] Implanted:Qty : 1 on 12/15/2019 by Nemesio Ku MD at [facility] Implant Right: Shoulder EXACTECH 09/15/2029 [id number] / [id number] / N/A Scrw Equinoxe Torq Define Rev Shldr Kt - [id number] - [id number] Implanted:Qty : 1 on 12/15/2019 by Nemesio Ku MD at [facility] Implant Right: Shoulder EXACTECH 10/19/2024 [id number] / [id number] / N/A Liner Hum Equinoxe Rev Shldr 38 Pls0 - [id number] Implanted:Qty : 1 on 01/05/2020 by Nemesio Ku MD at [facility] Implant Right: Shoulder EXACTECH 12/11/2024 [id number] / / [id number] Insurance [employer] [facility] [employer] Advance Directives * [...] pulse or is breathing): Full Care Teams Field Director Relationship Specialty Start Date End Date Melanie Brice PA [address] [facility] [address] [place] [address] PCP - General Physician Overhead Crane Truck Loader 08/01/18
--- OUTSIDE RECORDS SUMMARY | 2025-08-15 08:02 | XMS_ITS | Encounter Summary ---
Author Organization Healthcare Address [address] [place] [address] Care Team Providers Care Interpreter Translator Name Role Phone Melanie Brice Primary Care Provider [phone] Debora Mckeon APRN Unavailable [phone] Encounter Details Date Type Department Care Team (Late st Contact Info) Description 11/20/2023 Orders Only External Location [address] [place] [address] Provider, External Social History Tobacco Use Types [...] documented as of this encounter Care Teams Interpreter Translator Relationship Specialty Start Date End Date Melanie Brice [address] [place] [address] PCP - General Family Medicine 01/11/22 Debora Mckeon APRN [address] [place], [place] [id number] Referring Physician 01/11/22 documented as of this encounter
--- OUTSIDE RECORDS SUMMARY | 2025-08-15 08:02 | XMS_ITS | Encounter Summary ---
Author Organization Healthcare Address [address] [place] [address] Care Team Providers Care Peoplesoft Functional Analyst Name Role Phone Melanie Brice Primary Care Provider [phone] Debora Mckeon CRATE BUILDER Unavailable [phone] Reason for Visit * Reason Comments Med Refill Encounter Details Date Type Department Care Team (Late st Contact Info) Description 03/16/2024 [facility]ill [facility] [address] [place] [address] Lyly November, CRATE BUILDER [address] [place] [address] Seronegative rheumatoid arthritis of multiple [...] * Telephone Encounter - Lyly November Mar, CRATE BUILDER - 03/17/2024 10:46 AM EDT She no [...] documented as of this encounter Care Teams Peoplesoft Functional Analyst Relationship Specialty Start Date End Date Melanie Brice [address] [place] [id number] PCP - General Family Medicine 01/11/22 Debora Mckeon APRN [address] [place] [address] Referring Physician 01/11/22 documented as of this encounter
--- OUTSIDE RECORDS SUMMARY | 2025-08-15 08:02 | XMS_ITS | Encounter Summary ---
Author Organization Healthcare Address [address] [place] [address] Care Team Providers Care Customer Expert Name Role Phone Melanie Brice Primary Care Provider [phone] Debora Mckeon STAGE BUILDER Unavailable [phone] Encounter Details Date Type Department Care Team (Late st Contact Info) Description 01/04/2022 Community [facility] [address] [place] [address] Debora Mckeon APRN [address] [place] [address] Hemoptysis (Primary Dx) Social History [...] Primary documented in this encounter Care Teams Customer Expert Relationship Specialty Start Date End Date Melanie Brice [address] [place] [address] PCP - General Family Medicine 01/11/22 Debora Mckeon APRN [address] [place] [address] Referring Physician 01/11/22 documented as of this encounter
--- OUTSIDE RECORDS SUMMARY | 2025-08-15 08:02 | XMS_ITS | Encounter Summary ---
Author Organization [facility] Address [address] [place] [address] Care Team Providers Care Rod Drawer Name Role Phone Unavailable Primary Care Provider Unavailabl e Encounter Details Date Type Department Care Team (Late st Contact Info) Description 08/13/2023 Telephone [facility] Physicians - Pulmonary Medicine, [facility] [address] [facility] [address] [place] [phone] Dong Ruth DO [address] [place] [address] [address] [place], [place] [id number] Social History Tobacco Use Types Packs/Day Years [...] medical records pertaining to pulmonology to her enterprise application administrator, Dr Kelsey Cornell. PH [phone] FX [phone] documented in this encounter Plan of Treatment Not on file documented as of this encounter Visit Diagnoses Not on filedocumented in this encounter
--- OUTSIDE RECORDS SUMMARY | 2025-08-15 08:02 | XMS_ITS | Clinical Summary ---
Author Organization [facility] Address [facility] [place] [address] Care Team Providers Care Watch Hairspring Assembler Name Role Phone Unavailable Primary Care Provider [...] Fall Risk Assessment 2024 Osteoporosis Screening 2024 Advance Care Planning 11/12/2024 Depression Screening 11/12/2024 COVID-19 Vaccine ( season) 2025 Influenza Vaccination (#1) 2025 Insurance [facility] [employer] [place] MEDICARE Advance Directives For more information, please contact: [phone] * Full Code (Latest Code Status on File) Date Activated Date Inactivated Comments 08/04/2023 1:58 PM No automated c hest compression devices for VAD Patients
--- OUTSIDE RECORDS SUMMARY | 2025-08-15 08:03 | XMS_ITS | Referral Summary ---
Author Organization [facility] ([place], [place], [place], [place]) Address [address] [place] [address] Care Team Providers Care Mold Chipper Name Role Phone Debora Mckeon APRN Primary Care Provider [phone] Allergies No known active allergies Medications carvediloL [...] drink = 0.6 oz pur e alcohol) [facility] Intimate Partner Violence Answer Da te [...] your living situation today? I have a [facility] place to live 07/10/2024 Think about the [...] Do you speak a language other than Salvadorean at [facility]? No 07/10/2024 Do you want help with [...] you used [place] legal drugs? Never 07/10/2024 Comments No Sex and Gender Information Value [...] on file Medical Devices Implanted Type Area It Application Development Manager Device Identifier Shelf Expiration Date Model / Serial / Lot Bone Putty Stimulan 10cc 620-010 - [id number] Implanted:Qty : 1 on 07/09/2024 by Jong Moreno MD at [facility] IMPLANTS N/A: Spine Lumbar BIOCOMPOSITES [id number] 05/11/2026 620-010 / / [id number] Bone Vivigen Frmble Cell [address] [place] [address] - [id number] Implanted:Qty : 1 on 07/09/2024 by Jong Moreno MD at [facility] IMPLANTS N/A: Spine Lumbar LIFENET:LIFENET TRANSPLANT SRV 03/17/2025 BL-1600- 003 / [id number] / Scr Spne Meño Fix Fen 5x45mm 5 - [id number] Implanted:Qty : 4 on 07/09/2024 by Jong Moreno MD at [facility] IMPLANTS N/A: Spine Lumbar J &J:DEPUY:DEPUY SPINE / / Mis Markus Ply Scrw Set Ti - [id number] Implanted:Qty : 16 on 07/09/2024 by Jong Moreno MD at [facility] IMPLANTS N/A: Spine Lumbar J &J:DEPUY:DEPUY SPINE / / Scr Spne Meño Fix Fen 5x50mm - [id number] Implanted:Qty : 2 on 07/09/2024 by Jong Moreno MD at [facility] IMPLANTS N/A: Spine Lumbar J &J:DEPUY:DEPUY SPINE / / Dave Spinal 5.5x80mm Ti 04.633.185 - [id number] Implanted:Qty : 2 on 07/09/2024 by Jong Moreno MD at [facility] IMPLANTS N/A: Spine Lumbar J &J:DEPUY:DEPUY SPINE 633. 85 / . 85 / Cement Spinal Confidence 2839-10-000 - [id number] Implanted:Qty : 1 on 07/09/2024 by Jong Moreno MD at [facility] IMPLANTS N/A: Spine Lumbar J &J:DEPUY:DEPUY SPINE 02/09/2026 2839- 000 / / [id number] Insurance [facility] AD[facility] Advance Directives For more information, please contact: [phone] * Full Code (Latest Code Status on File) Date Activated Date Inactivated Comments 07/09/2024 6:43 PM 07/14/2024 9:07 AM Care Teams Mold Chipper Relationship Specialty Start Date End Date Debora Mckeon, MANJU [address] [place] [address] PCP - General Nurse Practitioner 04/26/23
--- OUTSIDE RECORDS SUMMARY | 2025-08-15 08:03 | XMS_ITS | Clinical Summary ---
Author Organization [facility] ([place], [place], [place], [place]) Address [address] [place] [address] Care Team Providers Care Enrollment Services Vice President Name Role Phone Debora Mckeon APRN Primary [...] hand 04/26/2023 Arthritis of left hand 04/26/2023 Family History Medical History Relation Name Comments [...] living situation today? I have a [facility] place to live 07/10/2024 Think about the [...] Do you speak a language other than [place]kinan at [facility]? No 07/10/2024 Do you want help with [...] FOBT/FIT 1959 Fit-DNA (Cologuard) 1959 Sigmoidoscopy 1959 Depression Screening (12+) 1971 Tobacco Cessation Counseling and Screening (12+) 1971 [...] AWV G0438 11/13/2023 COVID-19 VACCINE (5 - 2024-2 6 season) 2025 02/21/2021, 02/10/2021, 01/21/2021, Additional history exists Influenza Vaccine (#1) 2025 Falls Risk Screening Completed 02/12/2025 Medical Devices Implanted Type Area Supervisor Dog License Officer Device Identifier Shelf Expiration Date Model / Serial / Lot Bone Putty Stimulan 10 620-010 - [id number] Implanted:Qty : 1 on 07/09/2024 by Jong Moreno MD at [facility] IMPLANTS N/A: Spine Lumbar BIOCOMPOSITES [id number] 05/11/2026 620-010 / / [id number] Bone Vivigen Frmble Cell 10 Bl-1600-003 - [id number] Implanted:Qty : 1 on 07/09/2024 by Jong Moreno MD at [facility] IMPLANTS N/A: Spine Lumbar LIFENET:LIFENET TRANSPLANT SRV 03/17/2025 BL-1600- 003 / [id number] / Scr Spne Meño Fix Fen 5x45mm 5 - [id number] Implanted:Qty : 4 on 07/09/2024 by Jong Moreno MD at [facility] IMPLANTS N/A: Spine Lumbar J &J:DEPUY:DEPUY SPINE 5 / / Mis Markus Ply Scrw Set Ti - Implanted:Qty : 16 on 07/09/2024 by Jong Moreno MD at [facility] IMPLANTS N/A: Spine Lumbar J &J:DEPUY:DEPUY SPINE / / Scr Spne Meño Fix Fen 5x50mm - [id number] Implanted:Qty : 2 on 07/09/2024 by Jong Moreno MD at [facility] IMPLANTS N/A: Spine Lumbar J &J:DEPUY:DEPUY SPINE / / Dave Spinal 5.5x80mm Ti 04.633.185 - [id number] Implanted:Qty : 2 on 07/09/2024 by Jong Moreno MD at [facility] IMPLANTS N/A: Spine Lumbar J &J:DEPUY:DEPUY SPINE 04633.1 85 / 04.633.1 85 / Cement Spinal Confidence 2839-10-000 - [id number] Implanted:Qty : 1 on 07/09/2024 by Jong Moreno MD at [facility] IMPLANTS N/A: Spine Lumbar J &J:DEPUY:DEPUY SPINE 02/09/2026 2839-10- 000 / / [id number] Insurance [facility] ADV Advance Directives For more information, please contact: [phone] * Full Code (Latest Code Status on File) Date Activated Date Inactivated Comments 07/09/2024 6:43 PM 07/14/2024 9:07 AM Care Teams Enrollment Services Vice President Relationship Specialty Start Date End Date Debora Mckeon, MODELING ANALYST [address] [place] [id number] PCP - General Nurse Practitioner 04/26/23
--- NOTE | 2025-08-15 08:09 | XR_ITS ---
PROCEDURE INFORMATION: Exam: XR Chest Exam date and time: 08/15/2025 8:08 AM Age: 65 years old Clinical indication: Other: Right sided crackles TECHNIQUE: Imaging protocol: Radiologic exam of the chest. Views: 2 views. COMPARISON: CR XR CHEST PORTABLE 01/11/2025 8:54 AM FINDINGS: Lungs: Subtle 15 mm nodular density of the superior right lung on the frontal projection. Stable emphysematous changes of the lungs with mildly prominent interstitial markings diffusely. Pleural spaces: Unremarkable. No gross pleural effusion. No pneumothorax. Heart/Mediastinum: The cardiomediastinal silhouette is unremarkable. No cardiomegaly. Bones/joints: Thoracolumbar fusion hardware is partially visible. Right total shoulder replacement is partially visible. Soft tissues: The soft tissues are unremarkable. IMPRESSION: 1. Possible new 15 mm nodule of the superior right lung. Correlation with noncontrast CT chest is recommended. 2. Otherwise no acute findings.
--- NOTE | 2025-08-15 08:17 | PC.NURSE ---
pt going for xrays at this time
[2025-08-15 08:25] LABS: Hematocrit 29.9 % (37.0-47.0); Hemoglobin 9.4 g/dL (12.2-16.2); Immature Granulocytes % 0.4 %; Mean Corpuscular HGB Conc 31.4 g/dL (31.8-35.4); Mean Corpuscular Hemoglobin 24.4 pg (27.0-31.2); Mean Corpuscular Volume 77.5 fl (81-99); Nucleated Red Blood Cells % 0 %; Platelet Count 217 K/mm3 (142-424); Red Blood Count 3.86 M/mm3 (4.20-5.40); Red Cell Distribution Width-SD 47.5 fL; White Blood Count 7.8 K/mm3 (4.8-10.8)
[2025-08-15] MEDS: METHOCARBAMOL 500MG TABLET 1000 MG PO (08:26)
[2025-08-15] MEDS: METHYLPREDNISOLONE SOD SUCC 125MG VIAL 125 MG IV (08:26)
[2025-08-15 08:33] LABS: Albumin Level 3.6 g/dl (3.5-5.0); Chloride 89 mmol/L (98-107); Potassium 5.0 mmoL/L (3.5-5.1); Sodium 127 mmol/L (136-145)
[2025-08-15 08:35] LABS: Coronavirus 19, PCR Not Detected (NotDetected); Influenza A, PCR Not Detected (NotDetected); Influenza B, PCR Not Detected (NotDetected)
[2025-08-15 08:36] LABS: Alanine Aminotransferase 15 U/L (12-78); Albumin/Globulin Ratio 1.0 (1.1-1.8); Alkaline Phosphatase 109 U/L (38-126); Anion Gap 10.0 mEq/L (5-15); Aspartate Amino Transferase 22 U/L (14-36); Blood Urea Nitrogen 9 mg/dl (7-17); Carbon Dioxide 33 mmol/L (22.0-30.0); Creatinine Clearance Estimated 48 mL/min (50-200); Creatinine,Serum 0.70 mg/dl (0.52-1.04); Estimated Glomerular Filt Rate 84 ml/min (>60); GFR (African American) 101 ML/MIN (>60); Globulin 3.5 g/dL (1.3-3.2); Lipase 195 U/L (23-300); Total Protein,Serum 7.1 g/dl (6.3-8.2)
[2025-08-15 08:37] LABS: Calcium 9.5 mg/dl (8.4-10.2); Glucose 90 mg/dl (74-100)
[2025-08-15 08:48] LABS: Bilirubin,Total 0.1 mg/dl (0.2-1.3)
[2025-08-15 08:52] LABS: Troponin I < 0.01 ng/ml (0.00-0.034)
--- NOTE | 2025-08-15 08:53 | HMH.EDGENADL ---
Discharge Plan Disposition Patient Disposition: Home, Self-Care Condition: Good Prescriptions Prescriptions: New prednisone 20 mg tablet 40 mg PO DAILY 5 Days Qty: 10 0RF azithromycin [Zithromax Z-Danis] 250 mg tablet 250 mg PO DAILY 5 Days Qty: 5 0RF methocarbamol 750 mg tablet 750 mg PO TID PRN (Reason: muscle spasm) 7 Days Qty: 21 0RF No Action cephalexin 500 mg capsule 500 mg PO TID 5 Days Qty: 15 0RF linaclotide 145 MCG capsule 145 mcg PO DAILY omeprazole 20 mg capsule,delayed release(DR/EC) 20 mg PO DAILY Patient Comments: TAKE 1 CAPSULE BY MOUTH ONCE DAILY AROUND THE CLOCK rosuvastatin 10 mg tablet 10 mg PO HS Patient Comments: TAKE 1 TABLET BY MOUTH ONCE DAILY Trelegy Ellipta 200-62.5-25 mcg blister with device 1 inh INHALATION DAILY Patient Comments: INHALE 1 PUFF ONCE DAILY potassium chloride 20 mEq tablet,ER particles/crystals 20 meq PO DAILY Patient Comments: TAKE 1 TABLET BY MOUTH ONCE DAILY fluticasone propionate 50 mcg/actuation spray,suspension 1 spray INTRANASAL DAILY Patient Comments: USE 1 SPRAY(S) IN EACH NOSTRIL ONCE DAILY diclofenac sodium 75 mg tablet,delayed release (DR/EC) 75 mg PO BIDP PRN (Reason: ARTHRITIS PAIN) Patient Comments: TAKE 1 TABLET BY MOUTH TWICE DAILY WITH FOOD OR MILK nystatin 100,000 unit/mL Suspension 500,000 unit PO QID 10 Days Qty: 200 0RF cefdinir 300 mg capsule 300 mg PO BID 7 Days Qty: 14 0RF cetirizine 10 mg tablet 10 mg PO DAILY Patient Comments: TAKE 1 TABLET BY MOUTH ONCE DAILY ergocalciferol (vitamin D2) 1,250 mcg (50,000 unit) capsule 1,250 mcg PO WEEKLY Patient Comments: TAKE 1 CAPSULE BY MOUTH ONCE A WEEK furosemide 40 mg Tablet 40 mg PO DAILY 30 Days Qty: 30 0RF prednisone 20 mg Tablet 40 mg PO DAILY 7 Days Qty: 14 0RF nicotine 21 mg/24 hr Patch 24 Hour 21 mg transdermal DAILY 30 Days Qty: 28 0RF metoprolol succinate 25 mg Tablet Extended Release 24 Hr 25 mg PO DAILY 30 Days Qty: 30 0RF sacubitril-valsartan [Entresto] 24-26 mg Tablet 1 tab PO BID 30 Days Qty: 60 0RF Trelegy Ellipta 100-62.5-25 mcg Blister With Device 1 inh inhalation DAILY 30 Days Qty: 60 0RF ipratropium-albuterol 0.5 mg-3 mg(2.5 mg base)/3 mL Solution For Nebulization 3 ml inhalation Q6HP PRN (Reason: Shortness Of Breath) 30 Days Qty: 180 0RF spironolactone 25 mg Tablet 25 mg PO DAILY 30 Days Qty: 30 0RF sodium chloride 1,000 mg Tablet,Soluble 1,000 mg PO DAILY 30 Days Qty: 30 0RF Referrals Follow up/Referrals: Debora Mckeon [Primary Care Provider, Medical] - See instructions Activity Restrictions/Add. Instructions Additional Instructions/Restrictions: I want you to take prednisone 40 mg once daily for the next 5 days. You will also take azithromycin for the next 5 days as well. You can take anti-inflammatories at home for spasms in your back as well as Robaxin for muscle relaxation. if you have any new or worsening symptoms please return to the emergency department for further evaluation. Please follow up with your primary care doctor abou the nodule in your lung on XR. Clinical Impressions Clinical Impression: COPD exacerbation, Muscle spasm, Lung nodule Print Language Print Language: German Discharge ED Provider: Fabian Nuno Adult HPI General Chief complaint: PAIN Stated complaint: R Shoulder Pain/Previous Shoulder Replacement Time Seen by Provider: 08/15/25 08:00 Mode of Arrival: Wheelchair Source of Information: Patient Description of Symptoms (Recalled from ER Triage Doc. by RN): Patient presents to ED with right shoulder pain that has gotten worse over the last 2 weeks. Patient denies any recent injury to shoulder. Patient reports shoulder replacement 8 years ago. Patient has taken Tylenol for the pain last dose 0500. History of Present Illness HPI narrative: This is a 65-year-old female patient, with past medical history of tobacco abuse, COPD, and recurrent pneumonia, who is presenting to the emergency department today for evaluation of thoracic pain. Patient initially arrived to the emergency department with concerns of right shoulder pain stating that she had a reverse arthroplasty of the right shoulder about 8 years ago and she was concerned about her shoulder. After obtaining further history the patient is actually pinpointing her pain to the region of her rhomboid muscles and trapezius muscles along the right posterior thorax. She has had no difficulty with range of motion of the right shoulder itself and has not had a true glenohumeral pain. She additionally tells me that she has been experiencing cough and production of phlegm that is yellow in Discoloration over the course of the last 1 to 2 weeks. She states that since the onset of this cough and production of phlegm her posterior thoracic pain has significantly worsened and has been present for the last 1 week. No numbness or tingling in the right upper extremity. No anterior chest pain. Related Data Home Medications ?Medication ?Instructions ?Recorded ?Confirmed linaclotide 145 mcg capsule 145 mcg PO DAILY 01/16/22 07/18/25 diclofenac sodium 75 mg 75 mg PO BIDP PRN ARTHRITIS PAIN 12/18/24 07/18/25 tablet,delayed release fluticasone fur. 200 mcg-umeclid 1 inh inhalation DAILY 12/18/24 07/18/25 62.5 mcg-vilant 25 mcg inhalat.powder (Trelegy Ellipta) fluticasone propionate 50 1 spray intranasal DAILY 12/18/24 07/18/25 mcg/actuation nasal spray,suspension omeprazole 20 mg capsule,delayed 20 mg PO DAILY 12/18/24 07/18/25 release potassium chloride 20 mEq 20 meq PO DAILY 12/18/24 07/18/25 tablet,extended release(part/cryst) rosuvastatin 10 mg tablet 10 mg PO HS 12/18/24 07/18/25 cetirizine 10 mg tablet 10 mg PO DAILY 12/26/24 07/18/25 ergocalciferol (vitamin D2) 1,250 1,250 mcg PO WEEKLY 12/26/24 07/18/25 mcg (50,000 unit) capsule Previous Rx's ?Medication ?Instructions ?Recorded nystatin 100,000 unit/mL oral 500,000 unit (5 mL) PO QID 10 days 12/19/24 suspension #200 mL fluticasone fur. 100 mcg-umeclid 1 inh inhalation DAILY 30 days #60 01/11/25 62.5 mcg-vilant 25 mcg ea inhalat.powder (Trelegy Ellipta) furosemide 40 mg tablet 40 mg PO DAILY 30 days #30 tabs 01/11/25 ipratropium 0.5 mg-albuterol 3 mg 3 ml inhalation Q6HP PRN Shortness 01/11/25 (2.5 mg base)/3 mL nebulization Of Breath 30 days #180 mL soln metoprolol succinate 25 mg 25 mg PO DAILY 30 days #30 tabs 01/11/25 tablet,extended release 24 hr nicotine 21 mg/24 hr daily 21 mg transdermal DAILY 30 days 01/11/25 transdermal patch #28 ea prednisone 20 mg tablet 40 mg (2 x 20 mg) PO DAILY 7 days 01/11/25 #14 tabs sacubitril 24 mg-valsartan 26 mg 1 tab PO BID 30 days #60 tabs 01/11/25 tablet (Entresto) sodium chloride 1,000 mg soluble 1,000 mg PO DAILY 30 days #30 tabs 01/11/25 tablet spironolactone 25 mg tablet 25 mg PO DAILY 30 days #30 tabs 01/11/25 cefdinir 300 mg capsule 300 mg PO BID 7 days #14 caps 06/10/25 cephalexin 500 mg capsule 500 mg PO TID 5 days #15 caps 07/14/25 azithromycin 250 mg tablet 250 mg PO DAILY 5 days #5 tabs 08/15/25 (Zithromax Z-Danis) methocarbamol 750 mg tablet 750 mg PO TID PRN muscle spasm 7 08/15/25 days #21 tabs prednisone 20 mg tablet 40 mg (2 x 20 mg) PO DAILY 5 days 08/15/25 #10 tabs Allergies Allergy/AdvReac Type Severity Reaction Status Date / Time No Known Allergies Allergy Verified 07/18/25 14:45 [facility] Disclaimer: The information contained in this section may have been updated after the patient was seen, as this information can be updated by other users. Medical History Pericardial effusion Acute urinary retention Right lower lobe pneumonia Adult failure to thrive Acute on chronic hypoxic respiratory failure Confusion COPD exacerbation Pneumonia MRSA pneumonia Unresolved pneumonia Pseudomonas pneumonia Acute respiratory failure with hypoxemia Encounter for screening for malignant neoplasm of lung in current smoker with 30 pack year history or greater Pleural thickening Lung nodule Tobacco abuse disorder Tobacco abuse counseling COPD (chronic obstructive pulmonary disease) Smoking greater than 30 pack years Dyspnea on exertion Surgical History Previous back surgery Family History Other No significant family history Social History Smoking Status: Current every day smoker tobacco type: cigarettes packs per day: 3 alcohol intake: never substance use type: denies use current occupational status: disabled Travel in the last 8 weeks?: None household members: significant other housing: house caffeine: Yes Have you lived/traveled outside US in past 30 days?: No Contact w/someone who lives/traveled outside US past 30 days?: No Exposure to someone with infectious disease in past 14 days?: No Do you have a fever (greater than 100.4 F or 38 C)?: No Have you tested positive for COVID-19?: No Exposed to someone with COVID-19 in past 14 days?: No Do you have a sore throat?: No Do you have a cough?: No Do you have any weakness?: No Do you have any diarrhea?: No Are you experiencing any unusual bleeding?: No Do you have any muscle aches/pain?: No Do you have any abdominal pain?: No Are you experiencing loss of taste or smell?: No Other Medical History Have you received the Flu Vaccine for this season: No Have you received the Pneumonia Vaccine: No ROS Obtained: Yes Systems reviewed as appropriate & no additional complaints except as documented Physical Exam General General appearance: other (See MDM) Respiratory Respiratory exam: Present other (See MDM) Cardiovascular Cardiovascular exam: Present other (See MDM) Neurological Exam Neurological exam: Present other (See MDM) Medical Decision Making Medical Records Medical records reviewed: Yes I reviewed the patient's medical records. Screening: Per USPSTF and CDC recommendations, given the prevalence of disease in our region, it is our hospital?s policy to screen for HIV and viral Hepatitis for all patients aged 18 and over and those with ongoing risk factors. Kayden Inquiry Pt receiving controlled substance: No Kayden was queried for this patient: No Vital Signs: 08/15/25 07:57 08/15/25 08:00 08/15/25 08:01 Temperature 97.6 F Temperature Source Oral Pulse Rate 92 H 89 Pulse Rate [Left Brachial] 92 H Respiratory Rate 20 Blood Pressure 119/66 113/62 Blood Pressure [Left Arm] 119/66 Blood Pressure Mean Blood Pressure Mean [Left Arm] 83 Blood Pressure Source [Left Arm] Automatic Cuff Blood Pressure Position [Left Arm] Supine 02 Sat by Pulse Oximetry 98 91 L 95 Oxygen Delivery Method Room Air Room Air Room Air 08/15/25 08:30 08/15/25 09:00 08/15/25 09:30 Temperature Temperature Source Pulse Rate 94 H 76 76 Pulse Rate [Left Brachial] Respiratory Rate 18 Blood Pressure 107/52 L 95/52 L 103/51 L Blood Pressure [Left Arm] Blood Pressure Mean 72 Blood Pressure Mean [Left Arm] Blood Pressure Source [Left Arm] Blood Pressure Position [Left Arm] 02 Sat by Pulse Oximetry 93 L 92 L 92 L Oxygen Delivery Method Room Air Room Air 08/15/25 10:00 08/15/25 10:30 Temperature Temperature Source Pulse Rate 74 79 Pulse Rate [Left Brachial] Respiratory Rate 16 Blood Pressure 107/57 L 101/68 L Blood Pressure [Left Arm] Blood Pressure Mean 74 Blood Pressure Mean [Left Arm] Blood Pressure Source [Left Arm] Blood Pressure Position [Left Arm] 02 Sat by Pulse Oximetry 91 L 91 L Oxygen Delivery Method Room Air Lab Data Lab Results 08/15/25 08:16: WBC 7.8, RBC 3.86 L, Hgb 9.4 L, Hct 29.9 L, MCV 77.5 L, MCH 24.4 L, MCHC 31.4 L, RDW 17.1, Plt Count 217, MPV 9.5, Neut % (Auto) 75.7, Lymph % (Auto) 14.7, Guthrie % (Auto) 8.4, Eos % (Auto) 0.3, Baso % (Auto) 0.5, Neut # (Auto) 5.9, Lymph # (Auto) 1.1, Guthrie # (Auto) 0.7, Eos # (Auto) 0.0, Baso # (Auto) 0.0, Sodium 127 L, Potassium 5.0, Chloride 89 L, Carbon Dioxide 33 H, Anion Gap 10.0, BUN 9, Creatinine 0.70, Estimated Creat Clear 48, Estimated GFR 84, Est GFR ( Amer) 101, Glucose 90, Calcium 9.5, Total Bilirubin 0.1 L, AST 22, ALT 15, Alkaline Phosphatase 109, Troponin I < 0.01, Total Protein 7.1, Albumin 3.6, Globulin 3.5 H, Albumin/Globulin Ratio 1.0 L, Lipase 195, HCV Ab VEGA w/Rflx PCR Qn Negative, HIV Ag/Ab Combo Qual Negative 08/15/25 08:33: SARS-CoV-2 (PCR) Not detected, Influenza Type A (PCR) Not detected, Influenza Type B (PCR) Not detected, RSV (PCR) Not detected, Rhinovirus (PCR) Not detected 08/15/25 08:16 08/15/25 08:16 Orders (Tests/Meds): ED MEDICATIONS Discontinued Medications Generic Name Dose Route Start Last Admin Trade Name Freq PRN Reason Stop Dose Admin Ketorolac Tromethamine 15 mg 08/15/25 08:53 08/15/25 09:05 Ketorolac 15mg/Ml Vial IV 08/15/25 08:54 15 mg ONCE ONE Administration Methocarbamol 1,000 mg 08/15/25 08:11 08/15/25 08:26 Methocarbamol 500mg Tablet PO 08/15/25 08:12 1,000 mg ONCE ONE Administration Methylprednisolone Sodium Succinate 125 mg 08/15/25 08:09 08/15/25 08:26 Methylprednisolone Sod Succ 125mg Vial IV 08/15/25 08:10 125 mg ONCE ONE Administration ORDERS Category Date Time Status CXR 2 view (NOT portable) [XR chest 2V] Stat Exams 08/15/25 08:09 Completed CBC w/Auto Diff [Complete Blood Count Auto Diff] Stat Lab 08/15/25 08:16 Completed CMP [Comprehensive Metabolic Panel] Stat Lab 08/15/25 08:16 Completed HIV Combo Stat Lab 08/15/25 08:16 Completed Hepatitis C Ab Qual. W/ RFX Stat Lab 08/15/25 08:16 Completed Lipase Stat Lab 08/15/25 08:16 Completed Mini Respiratory Panel Stat Lab 08/15/25 08:33 Completed Troponin I Q3H Lab 08/15/25 11:15 Ordered Troponin I Q3H Lab 08/15/25 14:15 Ordered Troponin I Stat Lab 08/15/25 08:16 Completed Medical Decision Narrative: In summary, this is a 65-year-old female patient who is presenting to the emergency department today for evaluation of posterior thoracic pain along the right trapezius and right rhomboid region in the setting of a 2-week history of cough with increasing production of yellow phlegm. Comorbidities include a history of tobacco abuse as well as COPD for which she is on no oxygen at home. On initial evaluation of the patient they were resting comfortably in no acute distress and nontoxic in appearance. They are hemodynamically stable, saturating well room air, and are neurologically intact. On physical examination the patient she is appropriately alert and interactive. She has crackles appreciated in her right lung base on exam. She has no increased work of breathing and is not requiring oxygen here. She has significant spasm of the right trapezius and right rhomboid muscles. She has full range of motion of the right glenohumeral joint. She has no tenderness about this joint. There is no swelling or overlying erythema. She has no lower extremity erythema or edema. Differential diagnosis includes atypical pneumonia, lobar pneumonia, COPD exacerbation, ACS/SC, muscle spasm, among others. Labs were obtained and personally interpreted by me. There is no evidence of leukocytosis. No actionable anemia. H&H is stable from prior. She has stable hyponatremia from prior. No evidence of acute kidney injury. LFTs are normal. Chest x-ray was personally interpreted by me and demonstrates no lobar consolidation or pleural effusion. Official radiology read is in agreement and notes that the patient may have a new 15 mm nodule in the superior right lung. I have informed the patient of this and recommended follow-up with her primary care physician Given that the patient has crackles appreciated on exam and she is having cough with increased production of phlegm we will treat her for COPD exacerbation with steroids and azithromycin. Additionally, the patient has received resolution of symptoms in her posterior thorax with Toradol and Robaxin. We will send her home with a short course of Robaxin to take for muscle spasms. At this time all questions have been answered and all parties are agreeable with the decision discharge home Critical Care Critical Care Time Critical Care Time: No
[2025-08-15] MEDS: KETOROLAC 15MG/ML VIAL 15 MG IV (09:05)
[2025-08-15 10:24] LABS: Hepatitis C Ab Qual. W/ RFX NEGATIVE (Negative)
== END 2025-08-15 11:12 | disposition home or self-care (01) ==
PROVIDERS: Emergency Provider Student in an Organized Health Care Education/Training Program; PCP Nurse Practitioner Family
DX: J44.1 Chronic obstructive pulmonary disease with (acute) exacerbation (principal); M25.511 Pain in right shoulder; M62.838 Other muscle spasm; E87.1 Hypo-osmolality and hyponatremia; F17.210 Nicotine dependence, cigarettes, uncomplicated
CPT/HCPCS: 71046; 80053; 83690; 84484; 85025; 86803; 87389; 87631; 96374; 96375; 99284; J1885; J2919

== ENCOUNTER 2025-08-23 00:58 | Emergency (ER) | payer MEDICARE, MEDICAID, SELFPAY ==
--- OUTSIDE RECORDS SUMMARY | 2025-08-23 01:04 | XMS_ITS | Encounter Summary ---
Author Organization Healthcare Address [address] [place] [address] Care Team Providers Care Drier Attendant Name Role Phone Melanie Brice Primary Care Provider [phone] Debora Mckeon LINUX SOLARIS ADMINISTRATOR Unavailable [phone] Reason for Visit * Reason Comments Med Refill Encounter Details Date Type Department Care Team (Late st Contact Info) Description 03/16/2024 Refill [facility] [address] [place] [address] Lyly November, LINUX SOLARIS ADMINISTRATOR [address] [place] [address] Seronegative rheumatoid arthritis of multiple [...] * Telephone Encounter - Lyly November Mar, LINUX SOLARIS ADMINISTRATOR - 03/17/2024 10:46 AM EDT She no [...] documented as of this encounter Care Teams Drier Attendant Relationship Specialty Start Date End Date Melanie Brice [address] [place] [address] [id number] PCP - General Family Medicine 01/11/22 Debora Mckeon APRN [address] [place] [id number] Referring Physician 01/11/22 documented as of this encounter
--- OUTSIDE RECORDS SUMMARY | 2025-08-23 01:04 | XMS_ITS | Clinical Summary ---
Author Organization [facility] Address [address] [place] [address] Care Team Providers Care Reimbursement Liaison Name Role Phone Melanie Brice Primary Care Provider [phone] Allergies No known active allergies Medications linaclotide [...] 06/09/2024, 024 Medical Devices Implanted Type Area Director Of Compliance Device Identifier Shelf Expiration Date Model / Serial / Lot Stem Hum Liz Equinoxe Pressfit 6mm Sht - [id number] - [id number] Implanted:Qty : 1 on 12/15/2019 by Nemesio Ku MD at [facility] Implant Right: Shoulder EXACTECH 06/23/2029 [id number] / [id number] / N/A Liner Hum Equinoxe Rev Shldr 38 Pls0 - [id number] - [id number] Implanted:Qty : 1 on 12/15/2019 by Nemesio Ku MD at [facility] Implant Right: Shoulder EXACTECH 08/31/2024 [id number] / [id number] / N/A Try Hum Equinoxe Adpt Rev Shldr Pls0 - [id number] - [id number] Implanted:Qty : 1 on 12/15/2019 by Nemesio Ku MD at [facility] Implant Right: Shoulder EXACTECH 10/22/2029 [id number] / [id number] / N/A Totl Shldr Aug Plt Arthroplasty Upchrg - [id number] Implanted:Qty : 1 on 12/15/2019 by Nemesio Ku MD at [facility] Implant Right: Shoulder EXACTECH CAPSHOULTOTUPCHR GEXA C / / Totl Shldr Rev Ttl Exactech - [id number] Implanted:Qty : 1 on 12/15/2019 by Nemesio Ku MD at [facility] Implant Right: Shoulder EXACTECH CAPSHOUDREVEXACT TL / / Plt/Jnt Khurram Equinoxe Aug/Superior 10d - [id number] - [id number] Implanted:Qty : 1 on 12/15/2019 by Nemesio Ku MD at [facility] Implant Right: Shoulder EXACTECH 08/19/2029 [id number] / [id number] / N/A Scrw Compr Equinoxe Lk 4.5x26mm - [id number] - [id number] Implanted:Qty : 1 on 12/15/2019 by Nemesio Ku MD at [facility] Implant Right: Shoulder EXACTECH 10/02/2024 [id number] / [id number] / N/A Scrw Compr Equinoxe Lk 4.5x18mm - [id number] - [id number] Implanted:Qty : 1 on 12/15/2019 by Nemesio Ku MD at [facility] Implant Right: Shoulder EXACTECH 07/05/2024 [id number] / [id number] / N/A Scrw Compr Equinoxe Lk 4.5x26mm - [id number] - [id number] Implanted:Qty : 1 on 12/15/2019 by Nemesio Ku MD at [facility] Implant Right: Shoulder EXACTECH 05/06/2024 [id number] / [id number] / N/A Scrw Compr Equinoxe Lk 4.5x26mm - [id number] - [id number] Implanted:Qty : 1 on 12/15/2019 by Nemesio Ku MD at [facility] Implant Right: Shoulder EXACTECH 03/31/2024 [id number] / [id number] / N/A Scrw Equinx Glenosphere Lk - [id number] - [id number] Implanted:Qty : 1 on 12/15/2019 by Nemesio Ku MD at [facility] Implant Right: Shoulder EXACTECH 05/21/2024 [id number] / [id number] / N/A Glenosphere Equinx Rev Shldr 38mm - [id number] - [id number] Implanted:Qty : 1 on 12/15/2019 by Nemesio Ku MD at [facility] Implant Right: Shoulder EXACTECH 09/15/2029 [id number] / [id number] / N/A Scrw Equinoxe Torq Define Rev Shldr Kt - [id number] - [id number] Implanted:Qty : 1 on 12/15/2019 by Nemesio Ku MD at [facility] Implant Right: Shoulder EXACTECH 10/19/2024 [id number] / [id number] / N/A Liner Hum Equinoxe Rev Shldr 38 Pls0 - [id number] Implanted:Qty : 1 on 01/05/2020 by Nemesio Ku MD at [facility] Implant Right: Shoulder EXACTECH 12/11/2024 [id number] / / [id number] Insurance TRAV[employer]ERS WORK [employer] [facility] [employer] WORK COMP Advance Directives [...] pulse or is breathing): Full Care Teams Reimbursement Liaison Relationship Specialty Start Date End Date Melanie Brice PA [address] [facility] [address] [place] [address] PCP - General Physician Senior Director Insight 08/01/18
--- OUTSIDE RECORDS SUMMARY | 2025-08-23 01:04 | XMS_ITS | Encounter Summary ---
Author Organization Healthcare Address [address] [place] [address] Care Team Providers Care Sales Agent Pest Control Service Name Role Phone Melanie Brice Primary Care Provider Debora Mckeon APRN Unavailable [phone] Encounter Details Date Type Department Care Team (Late st Contact Info) Description 11/20/2023 Orders Only External Location [address] [place] [address] Provider, External Social History Tobacco Use Types [...] as of this encounter Care Teams Sales Agent Pest Control Service Relationship Specialty Start Date End Date Melanie Brice [address] [place] [address] PCP - General Family Medicine 01/11/22 Debora Mckeon APRN [address] [place], [place] [id number] Referring Physician 01/11/22 documented as of this encounter
--- OUTSIDE RECORDS SUMMARY | 2025-08-23 01:04 | XMS_ITS | Clinical Summary ---
Author Organization [facility] Address [address] [facility] [address] [place] [address] Care Team Providers Care Linter Operator Name Role Phone Unavailable Primary Care [...]
--- OUTSIDE RECORDS SUMMARY | 2025-08-23 01:04 | XMS_ITS | Encounter Summary ---
Author Organization Healthcare Address [address] [place] [address] Care Team Providers Care Evp Strategy Name Role Phone Melanie Brice Primary Care Provider [phone] Debora Mckeon GOLF BALL INSPECTOR Unavailable [phone] Encounter Details Date Type Department Care Team (Late st Contact Info) Description 01/04/2022 [facility] [address] [place] [address] Debora Mckeon APRN [address] [place] [address] Hemoptysis (Primary Dx) Social History [...] Primary documented in this encounter Care Teams Evp Strategy Relationship Specialty Start Date End Date Melanie Brice [address] [place] [address] PCP - General Family Medicine 01/11/22 Debora Mckeon APRN [address] [place] [address] Referring Physician 01/11/22 documented as of this encounter
--- OUTSIDE RECORDS SUMMARY | 2025-08-23 01:04 | XMS_ITS | Clinical Summary ---
Author Organization [facility] Address [facility] [place] [address] Care Team Providers Care Leadership Program Associate Name Role Phone Unavailable Primary Care Provider [...] 1976 Tetanus Vaccination (Every 10 Years) 1977 Hepatitis C Virus (HCV) Screening 1980 Breast Cancer Screening 2009 Pneumococcal Vaccine: 50+ Years (1 of 1 - PCV) 009 Zoster-RZV(Shingrix) (1 of 2) 2009 Fall Risk Assessment 2024 Osteoporosis Screening 2024 Advance Care Planning 11/12/2024 Depression Screening 11/12/2024 COVID-19 Vaccine ( - 2024- season) 2025 Influenza Vaccination (#1) 2025 RSV Vaccines (1 - 1-dose 75+ series) 2034 Insurance [facility] [place] MEDICARE Advance Directives For more information, please contact: [phone] * Full Code (Latest Code Status on File) Date Activated Date Inactivated Comments 08/04/2023 1:58 PM No automated c hest compression devices for VAD Patients
--- OUTSIDE RECORDS SUMMARY | 2025-08-23 01:04 | XMS_ITS | Encounter Summary ---
Author Organization [facility] Address [address] [place] [address] Care Team Providers Care Manager Of Corporate Name Role Phone Melanie Brice Primary Care Provider [phone] Debora Mckeon ASSISTANT EDUCATION DIRECTOR Unavailable [phone] Reason for Referral * Consultation (Routine) - Closed Specialty Diagnoses / Procedures Referred By Joanna t Referred To Contact Rheumatology Diagnoses Rheumatoid arthritis of multiple sites without rheumatoid factor (CMS/HCC) Debora Mckeon APRN [address] [place] [address] Phone: tel: fax: Referral ID Status Reason Start Date Expiration Date V isits Requested Visits Authorized [id number] Closed Specialty Services Required 10/17/2023 04/17/2025 1 1 Encounter Details Date Type Department Care Team (Late st Contact Info) Description 10/17/2023 Community [facility] [address] [place] [address] Debora Mckeon APRN [address] [place] [address] Rheumatoid arthritis of multiple sites [...] documented as of this encounter Care Teams Manager Of Corporate Relationship Specialty Start Date End Date Melanie Brice [address] [place] [address] PCP - General Family Medicine 01/11/22 Debora Mckeon APRN [address] [place] [address] Referring Physician 01/11/22 documented as of this encounter
--- OUTSIDE RECORDS SUMMARY | 2025-08-23 01:04 | XMS_ITS | Encounter Summary ---
Author Organization [facility] Address [address] [place] [address] Care Team Providers Care Footwear Sales Coordinator Name Role Phone Unavailable Primary Care Provider Unavailabl e Encounter Details Date Type Department Care Team (Late st Contact Info) Description 08/13/2023 Telephone [facility] Physicians - Pulmonary Medicine, [facility] [address] [facility] Medical Office Building [address] [place] [phone] Dong Ruth DO [address] [place] [address] [address] [place], [place] [id number] Social History Tobacco Use Types Packs/Day Years [...] 08/13/2023 9:57 AM EDT Patient seen in [facility]. Please send any medical records pertaining to pulmonology to her city carrier assistant, Dr Kelsey Cornell. PH [phone] FX [phone] documented in this encounter Plan of Treatment Not on file documented as of this encounter Visit Diagnoses Not on filedocumented in this encounter
--- OUTSIDE RECORDS SUMMARY | 2025-08-23 01:04 | XMS_ITS | Encounter Summary ---
Author Organization [facility] Address [address] [place] [address] Care Team Providers Care Marine Electronics Repairer Name Role Phone Melanie Brice Primary Care Provider [phone] Debora Mckeon APRN Unavailable [phone] Encounter Details Date Type Department Care Team (Late st Contact Info) Description 08/05/2023 Orders Only External Location [address] [place] [address] Provider, External Social History Tobacco Use Types [...] documented as of this encounter Care Teams Marine Electronics Repairer Relationship Specialty Start Date End Date Melanie Brice [address] [place], [place] [phone] PCP - General Family Medicine 01/11/22 Debora Mckeon APRN [address] [place] [address] Referring Physician 01/11/22 documented as of this encounter
--- OUTSIDE RECORDS SUMMARY | 2025-08-23 01:04 | XMS_ITS | Clinical Summary ---
Author Organization [facility] Address [address] [place] [address] Care Team Providers Care Mandarin Chinese Teacher Name Role Phone Melanie Brice Primary Care Provider [phone] Debora Mckeon APRN Unavailable [phone] Allergies No known active allergies Medications diclofenac [...] tabletIndicatio ns:Seronegative rheumatoid arthritis of multiple sites ([facility]) 6 tablets at the same time once weekly. Take with food 24 tablet 2 4 Active Additional Information Patient not taking.Reported on 06/09/2024 potassium chloride CR (Klor-Con M20) 20 MEQ ER tablet Take 1 tablet (20 mEq) by mouth 1 (one) time each day. 4 Active folic acid (Folvite) 1 MG tabletIndicatio ns:Seronegative rheumatoid arthritis of multiple sites ([facility]) Take 1 tablet by mouth once daily [...] 2019 [facility]-Lung Cancer Screening 06/09/20252023, 02/08/2024, 08/05/2023 [id number] Vaccine ( season) 2025 02/21/2021, 02/10/2021, 01/21/2021, [...] in the imaged upper abdomen. Procedure Note Kaor Workman MD - 06/09/2024 CLINICAL INDICATION: Lung [...] IgM Negative Negative 11/27/2023 2:16 PM EST [facility] Blood Venous blood specimen / Unknown Venipuncture / Unknown 11/27/2023 11:16 AM EST 11/27/2023 11:19 AM EST november R Lyly [facility] BLOOD ORDERABLES Final Result [facility] [address] [place] [address] from Last 3 Months or Most Recently Relevant to Health Maintenance Insurance [employer] Care Teams Mandarin Chinese Teacher Relationship Specialty Start Date End Date Melanie Brice [address] [place] [address] PCP - General Family Medicine 01/11/22 Debora Mckeon APRN [address] [place] [address] Referring Physician 01/11/22
[2025-08-23 01:05] VITALS: BP 134/65; PULSE 96; RESP 16; TEMP 36.4; O2SAT 94; BMI 18.6
--- OUTSIDE RECORDS SUMMARY | 2025-08-23 01:05 | XMS_ITS | Referral Summary ---
Author Organization [employer] ([place], [place], [place], [place]) Address [address] [place] [address] Care Team Providers Care Broaching Machine Set Up Operator Name Role Phone Debora Mckeon APRN [...] your living situation today? I have a [facility] place to live 07/10/2024 Think [...] Do you speak a language other than [place] at [facility]? No 07/10/2024 Do you want help [...] on file Medical Devices Implanted Type Area Head Of Precision Targeting Device Identifier Shelf Expiration Date Model / Serial / Lot Bone Putty Stimulan 10cc 620-010 - [id number] Implanted:Qty : 1 on 07/09/2024 by Jong Moreno MD at [facility] IMPLANTS N/A: Spine Lumbar [employer] [id number] 05/11/2026 620-010 / / [id number] Bone Vivigen Frmble Cell [address] [place] [address] - [id number] Implanted:Qty : 1 on 07/09/2024 by Jong Moreno MD at [facility] IMPLANTS N/A: Spine Lumbar LIFENET:LIFENET TRANSPLANT SRV 03/17/2025 BL-1600- 003 / [id number] / Scr Spne Meño Fix Fen 5x45mm 5 - [id number] Implanted:Qty : 4 on 07/09/2024 by Jong Moreno MD at [facility] IMPLANTS N/A: Spine Lumbar J &J:DEPUY:DEPUY SPINE / / Mis Markus Ply Scrw Set Ti - [id number] Implanted:Qty : 16 on 07/09/2024 by Jong Moreno MD at [facility] IMPLANTS N/A: Spine Lumbar J &J:DEPUY:DEPUY SPINE / / Scr Spne Meño Fix Fen 5x50mm - [id number] Implanted:Qty : 2 on 07/09/2024 by Jong Moreno MD at [facility] IMPLANTS N/A: Spine Lumbar J &J:DEPUY:DEPUY SPINE / / Dave Spinal 5.5x80mm Ti 04.633.185 - [id number] Implanted:Qty : 2 on 07/09/2024 by Jong Moreno MD at [facility] IMPLANTS N/A: Spine Lumbar J &J:DEPUY:DEPUY SPINE 633. 85 / . 85 / Cement Spinal Confidence 2839-10-000 - [id number] Implanted:Qty : 1 on 07/09/2024 by Jong Moreno MD at [facility] IMPLANTS N/A: Spine Lumbar J &J:DEPUY:DEPUY SPINE 02/09/2026 2839- 000 / / [id number] Insurance [facility] ADV Advance Directives For more information, please contact: [phone] * Full Code (Latest Code Status on File) Date Activated Date Inactivated Comments 07/09/2024 6:43 PM 07/14/2024 9:07 AM Care Teams Broaching Machine Set Up Operator Relationship Specialty Start Date End Date Debora Mckeon, MANJU [address] [place] [address] PCP - General Nurse Practitioner 04/26/23
--- OUTSIDE RECORDS SUMMARY | 2025-08-23 01:05 | XMS_ITS | Patient Health Record ---
Author Organization [facility] Address [address] [place] [address] Care Team Providers Care Compliance Vice President Name Role Phone RAMON MONCADA Primary Care [...] Insured Coverage Start Date Coverage End Date [employer] [facility] [address] [place] [address] [id number] Marisa Martino Self - patient is the insured
--- OUTSIDE RECORDS SUMMARY | 2025-08-23 01:05 | XMS_ITS | Clinical Summary ---
Author Organization [employer] ([place], [place], [place], [place]) Address [address] [place] [address] Care Team Providers Care Home Economics Extension Worker Name Role Phone Debora Mckeon APRN [...] your living situation today? I have a [facility] place to live 07/10/2024 Think [...] Do you speak a language other than [place] at [facility]? No 07/10/2024 Do you want help with [...] Completed 02/12/2025 Medical Devices Implanted Type Area Student Specialist Device Identifier Shelf Expiration Date Model / Serial / Lot Bone Putty Stimulan 10 620-010 - [id number] Implanted:Qty : 1 on 07/09/2024 by Jong Moreno MD at [facility] IMPLANTS N/A: Spine Lumbar BIOCOMPOSITES [id number] 05/11/2026 620-010 / / [id number] Bone Vivigen Frmble Cell 10 Bl-1600-003 - [id number] Implanted:Qty : 1 on 07/09/2024 by Jong Moreno MD at [facility] IMPLANTS N/A: Spine Lumbar LIFENET:LIFENET TRANSPLANT SRV 03/17/2025 BL-1600- 003 / [id number] / Scr Spne Meño Fix Fen 5x45mm 5 - [id number] Implanted:Qty : 4 on 07/09/2024 by Jong Moreno MD at [facility] IMPLANTS N/A: Spine Lumbar J &J:DEPUY:DEPUY SPINE 5 / / Mis Markus Ply Scrw Set Ti - Implanted:Qty : 16 on 07/09/2024 by Jong Moreno MD at [facility] IMPLANTS N/A: Spine Lumbar J &J:DEPUY:DEPUY SPINE / / Scr Spne Meño Fix Fen 5x50mm - [id number] Implanted:Qty : 2 on 07/09/2024 by Jong Moreno MD at [facility] IMPLANTS N/A: Spine Lumbar J &J:DEPUY:DEPUY SPINE / / Dave Spinal 5.5x80mm Ti 04.633.185 - [id number] Implanted:Qty : 2 on 07/09/2024 by Jong Moreno MD at [facility] IMPLANTS N/A: Spine Lumbar J &J:DEPUY:DEPUY SPINE 04633.1 85 / 04.633.1 85 / Cement Spinal Confidence 2839-10-000 - [id number] Implanted:Qty : 1 on 07/09/2024 by Jong Moreno MD at [facility] IMPLANTS N/A: Spine Lumbar J &J:DEPUY:DEPUY SPINE 02/09/2026 2839-10- 000 / / [id number] Insurance [facility] ADV Advance Directives For more information, please contact: [phone] * Full Code (Latest Code Status on File) Date Activated Date Inactivated Comments 07/09/2024 6:43 PM 07/14/2024 9:07 AM Care Teams Home Economics Extension Worker Relationship Specialty Start Date End Date Debora Mckeon, RELIEF DOCKING MASTER [address] [phone] PCP - General Nurse Practitioner 04/26/23
--- NOTE | 2025-08-23 01:15 | PC.NURSE ---
ed provider at the bedside.
--- NOTE | 2025-08-23 01:20 | XR_ITS ---
PROCEDURE INFORMATION: Exam: XR Left Hand Exam date and time: 08/23/2025 1:34 AM Age: 65 years old Clinical indication: Pain; Hand; Left; Additional info: Palmar pain, ttp/nodule along 4th metacarp TECHNIQUE: Imaging protocol: Radiologic exam of the left hand. Views: 3 or more views. COMPARISON: No relevant prior studies available. FINDINGS: Bones/joints: Widening of the scapholunate interval. Diffuse demineralized bones. Diffuse degenerative change of the visualized osseous structures. Periarticular bone formation is seen at the distal interphalangeal joints of the 2nd and 3rd digits. Carpectomy of the 1st metacarpophalangeal joint. 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 Soft tissues: Normal. IMPRESSION: 1. Advanced degenerative change. 2. Superimposed periarticular bone formation of the 2nd and 3rd distal interphalangeal joints which can be due to underlying inflammatory condition or posttraumatic findings. 3. 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 4. Corpectomy of the 1st metacarpal joint. 5. No acute findings of the 4th metacarpal bone as queried by the study indication.
[2025-08-23] MEDS: OXYCODONE 5MG IMMEDIATE RELEASE TABLET 5 MG PO (01:24)
--- NOTE | 2025-08-23 01:48 | HMH.EDGENADL ---
Discharge Plan Disposition Patient Disposition: Home, Self-Care Condition: Good Prescriptions Prescriptions: No Action cephalexin 500 mg capsule 500 mg PO TID 5 Days Qty: 15 0RF linaclotide 145 MCG capsule 145 mcg PO DAILY omeprazole 20 mg capsule,delayed release(DR/EC) 20 mg PO DAILY Patient Comments: TAKE 1 CAPSULE BY MOUTH ONCE DAILY AROUND THE CLOCK rosuvastatin 10 mg tablet 10 mg PO HS Patient Comments: TAKE 1 TABLET BY MOUTH ONCE DAILY Trelegy Ellipta 200-62.5-25 mcg blister with device 1 inh INHALATION DAILY Patient Comments: INHALE 1 PUFF ONCE DAILY potassium chloride 20 mEq tablet,ER particles/crystals 20 meq PO DAILY Patient Comments: TAKE 1 TABLET BY MOUTH ONCE DAILY fluticasone propionate 50 mcg/actuation spray,suspension 1 spray INTRANASAL DAILY Patient Comments: USE 1 SPRAY(S) IN EACH NOSTRIL ONCE DAILY diclofenac sodium 75 mg tablet,delayed release (DR/EC) 75 mg PO BIDP PRN (Reason: ARTHRITIS PAIN) Patient Comments: TAKE 1 TABLET BY MOUTH TWICE DAILY WITH FOOD OR MILK nystatin 100,000 unit/mL Suspension 500,000 unit PO QID 10 Days Qty: 200 0RF cefdinir 300 mg capsule 300 mg PO BID 7 Days Qty: 14 0RF prednisone 20 mg tablet 40 mg PO DAILY 5 Days Qty: 10 0RF azithromycin [Zithromax Z-Danis] 250 mg tablet 250 mg PO DAILY 5 Days Qty: 5 0RF methocarbamol 750 mg tablet 750 mg PO TID PRN (Reason: muscle spasm) 7 Days Qty: 21 0RF cetirizine 10 mg tablet 10 mg PO DAILY Patient Comments: TAKE 1 TABLET BY MOUTH ONCE DAILY ergocalciferol (vitamin D2) 1,250 mcg (50,000 unit) capsule 1,250 mcg PO WEEKLY Patient Comments: TAKE 1 CAPSULE BY MOUTH ONCE A WEEK furosemide 40 mg Tablet 40 mg PO DAILY 30 Days Qty: 30 0RF prednisone 20 mg Tablet 40 mg PO DAILY 7 Days Qty: 14 0RF nicotine 21 mg/24 hr Patch 24 Hour 21 mg transdermal DAILY 30 Days Qty: 28 0RF metoprolol succinate 25 mg Tablet Extended Release 24 Hr 25 mg PO DAILY 30 Days Qty: 30 0RF sacubitril-valsartan [Entresto] 24-26 mg Tablet 1 tab PO BID 30 Days Qty: 60 0RF Trelegy Ellipta 100-62.5-25 mcg Blister With Device 1 inh inhalation DAILY 30 Days Qty: 60 0RF ipratropium-albuterol 0.5 mg-3 mg(2.5 mg base)/3 mL Solution For Nebulization 3 ml inhalation Q6HP PRN (Reason: Shortness Of Breath) 30 Days Qty: 180 0RF spironolactone 25 mg Tablet 25 mg PO DAILY 30 Days Qty: 30 0RF sodium chloride 1,000 mg Tablet,Soluble 1,000 mg PO DAILY 30 Days Qty: 30 0RF Referrals Follow up/Referrals: Debora Mckeon [Primary Care Provider, Medical] - See instructions Armaan Landin DO [Staff Physician, Orthopedics] - See instructions Referral Note: Significant degenerative changes left hand with evidence of ganglion cysts Activity Restrictions/Add. Instructions Additional Instructions/Restrictions: You were evaluated in the ER and are believed to be appropriate for discharge at this time. Take Tylenol and ibuprofen together to have the best pain control. Do not take ibuprofen for more than 5 days in a row. Make sure to drink a full glass of water and eat a small snack each time you take these medications to protect your kidneys and avoid side effects. Alternate ice and heat for 15 to 20 minutes at a time. Elevate the hand to help with swelling and pain. Call your primary care doctor first thing Sunday. Make an appointment to be seen on Sunday or Sunday. I want her to reevaluate your hand and make sure you are not having any new redness or heat that could indicate infection. I also want her to check your kidney labs and to give you a referral to rheumatology and to a hand surgeon. I placed a referral to Dr. Landin, our orthopedic doctor. Please call his office first thing Sunday to make an appointment for reevaluation. Return to the ER with any new, worsening, or otherwise concerning symptoms including but not limited to redness, swelling, worsening pain, fevers, chills, or anything else you are concerned about. Clinical Impressions Clinical Impression: Hand pain, left, Arthritis, Ganglion cyst Print Language Print Language: [place] Discharge ED Provider: Yahaira Melo Adult HPI General Chief complaint: PAIN Stated complaint: issue with L hand Time Seen by Provider: 08/23/25 01:10 Mode of Arrival: Ambulatory Source of Information: Patient and Relative Description of Symptoms (Recalled from ER Triage Doc. by RN): pt presents with c/o pain and swelling to left hand that is somewhat chronic in nature due to her RA, with pain becoming significantly worse for approx 2 days. Pt reports no relief from OTC medications at home with last medication being motrin 400mg approx 1 hour ago. Radial pulse present, cms intact. History of Present Illness HPI narrative: 65-year-old female with history of arthritis and hand pain presents to the ER with concerns of left hand pain. She states the hand is generally slightly more swollen than normal and the pain is characteristic of her pre-existing conditions but worse in nature. She reports she has been told she does not have rheumatoid arthritis but is highly suspicious that she does. She states she has a large cyst on the palm side of her left wrist which has been there for years and seems slightly bigger but she is also having pain in the palm of the hand and points to a small nodule type area in the palmar segment of the flexor tendon of the fourth finger. Patient has no history of IV drug use, no recent wounds, she states she does not have redness or heat in this area, she is not having fevers or chills. She denies systemic signs of illness. No numbness, tingling, or weakness. She denies any other complaints or concerns on full review of systems. She does report she took ibuprofen prior to arrival without improvement of symptoms. Related Data Home Medications ?Medication ?Instructions ?Recorded ?Confirmed linaclotide 145 mcg capsule 145 mcg PO DAILY 01/16/22 07/18/25 diclofenac sodium 75 mg 75 mg PO BIDP PRN ARTHRITIS PAIN 12/18/24 07/18/25 tablet,delayed release fluticasone fur. 200 mcg-umeclid 1 inh inhalation DAILY 12/18/24 07/18/25 62.5 mcg-vilant 25 mcg inhalat.powder (Trelegy Ellipta) fluticasone propionate 50 1 spray intranasal DAILY 12/18/24 07/18/25 mcg/actuation nasal spray,suspension omeprazole 20 mg capsule,delayed 20 mg PO DAILY 12/18/24 07/18/25 release potassium chloride 20 mEq 20 meq PO DAILY 12/18/24 07/18/25 tablet,extended release(part/cryst) rosuvastatin 10 mg tablet 10 mg PO HS 12/18/24 07/18/25 cetirizine 10 mg tablet 10 mg PO DAILY 12/26/24 07/18/25 ergocalciferol (vitamin D2) 1,250 1,250 mcg PO WEEKLY 12/26/24 07/18/25 mcg (50,000 unit) capsule Previous Rx's ?Medication ?Instructions ?Recorded nystatin 100,000 unit/mL oral 500,000 unit (5 mL) PO QID 10 days 12/19/24 suspension #200 mL fluticasone fur. 100 mcg-umeclid 1 inh inhalation DAILY 30 days #60 01/11/25 62.5 mcg-vilant 25 mcg ea inhalat.powder (Trelegy Ellipta) furosemide 40 mg tablet 40 mg PO DAILY 30 days #30 tabs 01/11/25 ipratropium 0.5 mg-albuterol 3 mg 3 ml inhalation Q6HP PRN Shortness 01/11/25 (2.5 mg base)/3 mL nebulization Of Breath 30 days #180 mL soln metoprolol succinate 25 mg 25 mg PO DAILY 30 days #30 tabs 01/11/25 tablet,extended release 24 hr nicotine 21 mg/24 hr daily 21 mg transdermal DAILY 30 days 01/11/25 transdermal patch #28 ea prednisone 20 mg tablet 40 mg (2 x 20 mg) PO DAILY 7 days 01/11/25 #14 tabs sacubitril 24 mg-valsartan 26 mg 1 tab PO BID 30 days #60 tabs 01/11/25 tablet (Entresto) sodium chloride 1,000 mg soluble 1,000 mg PO DAILY 30 days #30 tabs 01/11/25 tablet spironolactone 25 mg tablet 25 mg PO DAILY 30 days #30 tabs 01/11/25 cefdinir 300 mg capsule 300 mg PO BID 7 days #14 caps 06/10/25 cephalexin 500 mg capsule 500 mg PO TID 5 days #15 caps 07/14/25 azithromycin 250 mg tablet 250 mg PO DAILY 5 days #5 tabs 08/15/25 (Zithromax Z-Danis) methocarbamol 750 mg tablet 750 mg PO TID PRN muscle spasm 7 08/15/25 days #21 tabs prednisone 20 mg tablet 40 mg (2 x 20 mg) PO DAILY 5 days 08/15/25 #10 tabs Allergies Allergy/AdvReac Type Severity Reaction Status Date / Time No Known Allergies Allergy Verified 07/18/25 14:45 [facility] Disclaimer: The information contained in this section may have been updated after the patient was seen, as this information can be updated by other users. Medical History Pericardial effusion Acute urinary retention Right lower lobe pneumonia Adult failure to thrive Acute on chronic hypoxic respiratory failure Confusion COPD exacerbation Pneumonia MRSA pneumonia Unresolved pneumonia Pseudomonas pneumonia Acute respiratory failure with hypoxemia Encounter for screening for malignant neoplasm of lung in current smoker with 30 pack year history or greater Pleural thickening Lung nodule Tobacco abuse disorder Tobacco abuse counseling COPD (chronic obstructive pulmonary disease) Smoking greater than 30 pack years Dyspnea on exertion Surgical History Previous back surgery Family History Other No significant family history Social History Smoking Status: Current every day smoker tobacco type: cigarettes packs per day: 3 alcohol intake: never substance use type: denies use current occupational status: disabled Travel in the last 8 weeks?: None household members: significant other housing: house caffeine: Yes Have you lived/traveled outside [place] in past 30 days?: No Contact w/someone who lives/traveled outside [place] past 30 days?: No Exposure to someone with infectious disease in past 14 days?: No Do you have a fever (greater than 100.4 F or 38 C)?: No Have you tested positive for COVID-19?: No Exposed to someone with COVID-19 in past 14 days?: No Do you have a sore throat?: No Do you have a cough?: No Do you have any weakness?: No Do you have any diarrhea?: No Are you experiencing any unusual bleeding?: No Do you have any muscle aches/pain?: No Do you have any abdominal pain?: No Are you experiencing loss of taste or smell?: No Other Medical History Have you received the Flu Vaccine for this season: No Have you received the Pneumonia Vaccine: No ROS Obtained: Yes Systems reviewed as appropriate & no additional complaints except as documented per HPI Physical Exam General General appearance: alert and in no apparent distress Comment: Chronically ill-appearing, appears older than stated age Head Head exam: atraumatic and normocephalic Eye Eye exam: Present PERRL and EOMI ENT ENT exam: Present mucous membranes moist Neck Neck exam: Present normal inspection and full ROM Chest Chest inspection: Present symmetric chest wall rise Respiratory Respiratory exam: Absent respiratory distress or stridor Cardiovascular Cardiovascular exam: Present regular rate, normal rhythm and other (2+ pulses in all extremities, brisk capillary refill) Extremities Exam Extremities exam: Present full ROM (Patient has full range of motion in all extremities though range of motion of the left hand flexion and extension of the fingers is uncomfortable), tenderness, normal capillary refill, joint swelling (Swelling of the MTP joints of bilateral hands with obvious degenerative changes throughout the joints of the hands and fingers. ) and other (Ulnar deviation of the fingers bilaterally); Absent edema Expanded Upper Extremity Exam Left: Forearm/Wrist exam: Present other (Approximately 2 to 3 cm ganglion cyst on the palmar aspect of left wrist, no erythema or fluctuance, no induration, wounds, or evidence of infection) Hand L/R front image:  1. other (Palpable cystic-like structure in the ED flexor tendon of the fourth finger. TTP but no erythema, fluctuance, or induration) Comment: Neurovascularly intact throughout Neurological Exam Neurological exam: Present alert and oriented X3; Absent motor sensory deficit Psychiatric Psychiatric exam: Present normal affect and normal mood Skin Skin exam: Present warm and dry Medical Decision Making Medical Records Medical records reviewed: Yes I reviewed the patient's medical records. Screening: Per USPSTF and CDC recommendations, given the prevalence of disease in our region, it is our hospital?s policy to screen for HIV and viral Hepatitis for all patients aged 18 and over and those with ongoing risk factors. [place] Inquiry Pt receiving controlled substance: No Vital Signs: 08/23/25 01:05 Temperature 97.6 F Temperature Source Oral Pulse Rate [Radial] 96 H Respiratory Rate 16 Blood Pressure [Right Arm] 134/65 Blood Pressure Mean [Right Arm] 88 Blood Pressure Position [Right Arm] Sitting 02 Sat by Pulse Oximetry 94 L Oxygen Delivery Method Room Air Orders (Tests/Meds): ED MEDICATIONS Discontinued Medications Generic Name Dose Route Start Last Admin Trade Name Freq PRN Reason Stop Dose Admin Oxycodone HCl 5 mg 08/23/25 01:22 08/23/25 01:24 Oxycodone 5mg Immediate Release Tablet PO 08/23/25 01:23 5 mg ONCE ONE Administration ORDERS Category Date Time Status Hand XR left minimum 3 views [XR hand LT min 3V] Stat Exams 08/23/25 01:20 Taken POCUS Point of Care (ER Only) Stat Exams 08/23/25 01:22 Ordered Medical Decision Narrative: In summary, this 65-year-old female with history of COPD, tobacco use, arthritis presents to the emergency department today with chronic left hand pain and exacerbation. On initial evaluation patient is hemodynamically stable, afebrile, nontoxic-appearing, not in extremis, patient is a GCS 15, no neurologic deficits, physical exam is notable for large ganglion cyst on the palmar aspect of the left wrist as well as nodularity of the palmar segment of the left fourth digit flexor tendon. There is no erythema, induration, or fluctuance. Patient is neurovascularly intact throughout. No evidence of wound. Patient has ulnar deviation of the fingers with obvious evidence of degenerative changes. I suspect underlying rheumatoid arthritis. Differential diagnosis includes but is not limited to degenerative changes, rheumatoid arthritis flare, ganglion cyst, tendon rupture, fracture, dislocation, or broken osteophyte were also considered but considered to be much less likely since patient has not had a traumatic injury. I did briefly consider the possibility of flexor tenosynovitis but patient has had no wounds, she does not use IV drugs, she has no fevers or systemic symptoms, no heat, redness, fluctuance, or induration or associated with the nodularity on the palm of the hand. Additionally, hand is not held in flexion, she does have some discomfort with passive movement but this is consistent across all fingers in both hands. She does not have fusiform swelling or redness. Findings are by far most consistent with degenerative changes and possible ganglion/tendon sheath cyst. Based on these concerns, I ordered x-ray left hand and performed [id number] ultrasound. I do not believe patient requires labs at this time. See procedure note for details of [id number] ultrasound which demonstrates ganglion cysts of the hand and fourth digit flexor tendon in the palmar segment. These fluid collections appear cystic in nature and within the tendon sheath with no surrounding inflammatory changes reassuring against infection. I personally interpreted x-ray of the left hand which does not demonstrate acute osseous injury but there are significant degenerative changes, see radiology read for final interpretation. Patient received single dose of oxycodone in the ER in an attempt to gain control of her pain. I explained I would not be prescribing this medication but was helping to break the cycle of her pain so that she could continue taking Tylenol and ibuprofen at home with improved pain management. She understands this. On reassessment after receiving this medication she has had improvement of symptoms. I reviewed results with her and she is reassured. Patient has never seen a hand surgeon or fbi investigator. I instructed her to follow-up closely with her primary care doctor early this week to reassess her symptoms and check labs, I also provided a referral to Dr. Landin with the orthopedic team in our system. I recommended that the patient request rheumatology and hand surgery referrals from her PCP. She was given instructions on continued symptomatic monitoring and management with [id number] medications, ice, heat, and elevation. She was also given instructions on follow-up and strict return precautions for the ER including but not limited to any signs of infection. Patient was agreeable and indicated understanding to all verbal and written instructions. She was discharged in stable condition. Procedures Miscellaneous Procedure Procedure Performed: NDK ultrasound Performed by: Yahaira Melo MD A focused ultrasound of the soft tissue was performed to evaluate for musculoskeletal abnormality including joint effusion, tendon injury, ligament injury, cyst, muscle injury, or fractured bone. Indication: Pain, tenderness over palm Location: Left hand Identified structures: Soft tissues of palmar aspect of left hand and left wrist Findings: Exam of the above structures revealed the following findings: No obvious tendon disruption Ganglion cyst of left wrist Tendon sheath/ganglion cyst of palmar segment of left fourth finger flexor tendon No evidence of surrounding edema, no evidence of abscess or cellulitis No evidence of fracture Impression: Large ganglion cyst of left wrist and palmar segment of flexor tendon of the fourth finger on the left hand with no evidence of infection or rupture of the tendon The images were saved saved for permanent archive The study was technically adequate CPT 36782 Critical Care Critical Care Time Critical Care Time: No
[2025-08-23 02:06] VITALS: BP 138/72; PULSE 94; RESP 16; TEMP 36.1; O2SAT 95
== END 2025-08-23 02:07 | disposition home or self-care (01) ==
PROVIDERS: Emergency Provider Emergency Medicine; PCP Nurse Practitioner Family
DX: M79.642 Pain in left hand (principal); R22.32 Localized swelling, mass and lump, left upper limb; M67.442 Ganglion, left hand; M19.042 Primary osteoarthritis, left hand
CPT/HCPCS: 73130; 99282; 99284

== ENCOUNTER 2025-09-10 07:17 | Outpatient (CLI) | payer MEDICARE, MEDICAID, SELFPAY ==
--- OUTSIDE RECORDS SUMMARY | 2025-08-29 00:14 | XMS_ITS | Continuity of Care Document ---
Author Organization [facility] Phone Care Team Providers Care Custom Miller Name Role Phone LEONEL OHARA Primary Attending LEONEL OHARA Admitting LEONEL OHARA Primary Care LEONEL OHARA Unavailable ALLERGIES AND ADVERSE REACTIONS ALLERGIES AND ADVERSE REACTIONS Code System Allergy Substance Adverse Reaction Date Reaction (Severity) Comment Status Reported By Updated By No Known Allergies [email or web address] on March 10, 2025 6:27:35 PM UT FAMILY HISTORY RELATION: Father Status: Cause of : Kidney disease Age at : 61 SNOMED-CT Diagnosis Age At Onset Information not available RELATION: Mother Status: Cause of : Primary malignant neoplasm of brain Age at : 62 SNOMED-CT Diagnosis Age At Onset Information not available RESULTS Patient: ZULLY MCMANUS Date of : 1960 7 LABORATORY RESULTS ORDER 100: CBC WITH AUTO DIF F (LOINC: 47822-4) ORDER DATE: August 27, 2025 8:43:00 PM UT Specimen Source: WHOLE BLOOD Specimen Type: Whole blood s ample PERFORMING LAB: [address] [id number] Result Comment: Final Result Date: August 27, 2025 8:54:00 PM UT (TECH: EMERITA) LOINC TEST FLAG [place] [address]-6 Leukocytes [#/volume] in Blood N 9.2 10^3/ul 4.5 10^3/ul - 11.5 10^3/ul August 27, 2025 8:54:00 PM UT (TECH: EMERITA) 16901-2 Erythrocytes [#/volume] in Blood N 4.04 10^6/ul 4.00 10^6/ul - 5.40 10^6/ul August 27, 2025 8:54:00 PM UTC (TECH: MDQ) 718-7 Hemoglobin [Mass/volume] in Blood L 9.9 g/dL 12.0 g/dL - 15.0 g/dL August 27, 2025 8:54:00 PM UTC (TECH: MDQ) 03591-6 Hematocrit [Volume Fraction] of Blood L 31.3 % 35.0 % - 49.0 % August 27, 2025 8:54:00 PM UTC (TECH: MDQ) 11475-0 MCV [Entitic volume] L 77.5 fL 80 fL - 100 fL August 27, 2025 8:54:00 PM UTC (TECH: MDQ) 91838-6 MCH [Entitic mass] L 24.5 pg 26 pg - 32 pg August 27, 2025 8:54:00 PM UTC (TECH: MDQ) 37148-5 MCHC [Mass/volume] L 31.6 g/dl 32 g/d l - 36 g/dl August 27, 2025 8:54:00 PM UTC (TECH: MDQ) 80832-2 Erythrocyte distribution width [Entitic volume] H 17.4 % 11.5 % - 14.5 % August 27, 2025 8:54:00 PM UTC (TECH: MDQ) 777-3 Platelets [#/volume] in Blood by Automated count N 262 10^3/ul 150 10^3/ul - 450 10^3/ul August 27, 2025 8:54:00 PM UTC (TECH: MDQ) 54274-1 Mean platelet component [Mass/volume] in Blood by calculation N 9.5 fL 6.8 fL - 10.2 fL August 27, 2025 8:54:00 PM UTC (TECH: MDQ) 60206-2 Manual Differential panel - Blood N NOT INDICATED August 27, 2025 8:54:00 PM UTC (TECH: MDQ) 52881-3 Neutrophils [#/volume] in Blood H 77.8 % 50 % - 70 % August 27, 2025 8:54:00 PM UTC (TECH: MDQ) 65250-3 Lymphocytes [#/volume] in Blood L 13.0 % 18 % - 42 % August 27, 2025 8:54:00 PM UTC (TECH: MDQ) 01119-6 Monocytes [#/volume] in Blood N 8.2 % 2 % - 11 % August 27, 2025 8:54:00 PM UTC (TECH: MDQ) 43799-7 Eosinophils [#/volume] in Blood L 0.2 % 1 % - 3 % August 27, 2025 8:54:00 PM UTC (TECH: MDQ) 70235-5 Basophils/100 leukocytes in Blood N 0.5 % 0.0 % - 2.0 % August 27, 2025 8:54:00 PM UTC (TECH: MDQ) 762-5 Neutrophils [#/volume] in Urine by Manual count H 7.2 K/uL 2.0 K/uL - 6.9 K/uL August 27, 2025 8:54:00 PM UTC (TECH: MDQ) 07298-5 Variant lymphocytes [#/volume] in Blood N 1.2 K/uL 0.6 K/uL - 3.4 K/uL August 27, 2025 8:54:00 PM UTC (TECH: MDQ) 14669-3 Monocytes [#/volume] in Blood N 0.8 K/uL 0.0 K/uL - 0.9 K/uL August 27, 2025 8:54:00 PM UTC (TECH: MDQ) 33046-5 Eosinophils [#/volume] in Blood N 0.0 K/ul 0.0 K/ul - 0.7 K/ul August 27, 2025 8:54:00 PM UTC (TECH: MDQ) 87122-4 Basophils [#/volume] in Blood N 0.05 K/uL 0.0 K/uL - 0.2 K/uL August 27, 2025 8:54:00 PM UTC (TECH: MDQ) ORDER 200: COMPREHENSIVE MET ABOLIC PANEL (LOINC: 36824-5) ORDER DATE: August 27, 2025 8:43:00 PM UTC Specimen Source: PLASMA Specimen Type: Plasma specim en PERFORMING LAB: [address] [id number] Result Comment: Final Result Date: August 27, 2025 9:14:00 PM UTC (TECH: MDQ) LOINC TEST FLAG RESULT REFERENCE RANGE UPDA TORREY BY 2947-0 Sodium [Moles/volume ] in Blood L 129 mmol/L 136 mmol/L - 145 mmol/L August 27, 2025 9:14:00 PM UTC (TECH: MDQ) 6298-4 Potassium [Moles/volume] in Blood N 4.8 mmol/L 3.5 mmol/L - 5.1 mmol/L August 27, 2025 9:14:00 PM UTC (TECH: MDQ) 9-3 Chloride [Moles/volu me] in Blood L 89 mmol/L 98.0 mmol/L - 107.0 mmol/L August 27, 2025 9:14:00 PM UTC (TECH: MDQ) 96749-1 Carbon dioxide, tota l [Moles/volume] in Blood N 29 mmol/L 21 mmol/L - 32 mmol/L August 27, 2025 9:14:00 PM UTC (TECH: MDQ) 78563-9 Anion gap 3 in Serum or Plasma H 15.8 mmol/L 5.0 mmol/L - 15.0 mmol/L August 27, 2025 9:14:00 PM UTC (TECH: MDQ) 2339-0 Glucose [Mass/volume ] in Blood N 78 mg/dL 70 mg/dL - 120 mg/dL August 27, 2025 9:14:00 PM UTC (TECH: MDQ) 3094-0 Urea nitrogen [Mass/volume] in Serum or Plasma H 25 mg/dl 7 mg/dl - 18 mg/dl August 27, 2025 9:14:00 PM UTC (TECH: MDQ) 26398-2 Creatinine [Moles/volume] in Serum or Plasma N 1.0 mg/dL 0.6 mg/dL - 1.0 mg/dL August 27, 2025 9:14:00 PM UTC (TECH: MDQ) 3097-3 Urea nitrogen/Creatinine [Mass Ratio] in Serum or Plasma H 25.0 Ratio 9 Ratio - 21 Ratio August 27, 2025 9:14:00 PM UTC (TECH: MDQ) 87256-1 Glomerular filtratio n rate/1.73 sq M.predicted [Volume Rate/Area] in Serum or Plasma by Creatinine-based formula (MDRD) L 55 mL/min 60.0 mL/min August 27, 2025 9:14:00 PM UT (TECH: MDQ) 06988-3 Calcium [Mass/volume ] in Blood N 9.1 mg/dL 8.6 mg/dL - 9.8 mg/dL August 27, 2025 9:14:00 PM UTC (TECH: MDQ) 28180-4 Bilirubin direct and total panel [Mass/volume] - Serum or Plasma N 0.4 mg/dL 0.2 mg/dL - 1.0 mg/dL August 27, 2025 9:14:00 PM UTC (TECH: MDQ) 1920-8 Aspartate aminotransferase [Enzymatic activity/volume] in Serum or Plasma N 18 IU/L 15 IU/L - 37 IU/L August 27, 2025 9:14:00 PM UT (TECH: MDQ) 1742-6 Alanine aminotransferase [Enzymatic activity/volume] in Serum or Plasma N 20 IU/L 12 IU/L - 78 IU/L August 27, 2025 9:14:00 PM UTC (TECH: MDQ) 6768-6 Alkaline phosphatase [Enzymatic activity/volume] in Serum or Plasma N 108 IU/L 54 IU/L - 369 IU/L August 27, 2025 9:14:00 PM UTC (TECH: MDQ) 2885-2 Protein [Mass/volume ] in Serum or Plasma N 6.5 g/dL 6.4 g/dL - 8.2 g/dL August 27, 2025 9:14:00 PM UT (TECH: MDQ) 1751-7 Albumin [Mass/volume ] in Serum or Plasma L 3.1 g/dl 3.4 g/dl - 5.0 g/dl August 27, 2025 9:14:00 PM UTC (TECH: MDQ) 2336-6 Globulin [Mass/volum e] in Serum N 3.4 g/dl 1.3 g/dl - 3.5 g/dl August 27, 2025 9:14:00 PM UT (TECH: MDQ) 02966-3 Albumin/Globulin [Ma ss Ratio] in Pleural fluid L 0.9 Ratio 1.0 Ratio - 3.9 Ratio August 27, 2025 9:14:00 PM UTC (TECH: MDQ) 38969-3 Osmolality of Urine by calculation L 262 mOsm/kg 272 mOsm/kg - 295 mOsm/kg August 27, 2025 9:14:00 PM UT (TECH: MDQ) ORDER 300: NT-PRO BNP (LOINC : 40482-3) ORDER DATE: August 27, 2025 8:43:00 PM UT Specimen Source: PLASMA Specimen Type: Plasma specim en PERFORMING LAB: [address] [id number] Result Comment: Final Result Date: August 27, 2025 9:14:00 PM UT (TECH: MDQ) LOINC TEST FLAG RESULT [place] [address]-2 Natriuretic peptide B [Mass/volume] in Blood H 1144 pg/ml 5 pg/ml - 100 pg/ml Octob er 2024 9:14:00 PM UT (TECH: MDQ) LABORATORY NARRATIVE RESULTS Information is not available RADIOLOGY RESULTS Information is not available PATHOLOGY NARRATIVE RESULTS Information is not available MICROBIOLOGY RESULTS No Micro Labs/Results Exist for Patient BLOOD ADMIN RESULTS Information is not available MEDICATIONS HOME MEDICATIONS Status RXNORM NDC Medication Dose Route Frequency Dates Comments Reported By Updated By Drug Treatment Unknown DISCHARGE MEDICATIONS Status RXNORM NDC Medication Dose Route Frequency Dates Dis pense Data Comments Physician Updated By No Discharge Medication Info rmation Available INPATIENT MEDICATIONS Status RXNORM NDC Medication Dose Route Frequency Rat e Quantity Dates Indication Dispense Data Comments Physician Updated By No Inpatient Medication Info rmation Available SOCIAL HISTORY SOCIAL HISTORY - Smoking Status SNOMED-CT Social History Element Description Effective Dates Offered Cessation Comment Updated By [id number] Historical Tobacco smoking status Current Every Day Smoker [id number] on March 05, 2025 4:14:40 PM [facility] SOCIAL HISTORY - Gender Sex: Female SOCIAL HISTORY - Status : status i nformation is not available Intention in Next Year: intention information is not available SOCIAL HISTORY - Assessments Code System Description Status Date Value of Assessment Updated By Comment Assessment Information is no t available SOCIAL HISTORY - Chevak Affiliation Chevak information is not av ailable SOCIAL HISTORY - Legal Sex Legal Sex information is not available SOCIAL HISTORY - Sexual Behavior Sexual Orientation Gender Identity SNOMED-CT Description SNO MED -CT Description Activity Level No of Partners Partner Type UpdatedBy Information is not available SOCIAL HISTORY - Occupation Occupation information is no t available HEALTH CONCERNS Problems Concern Status Health Concern problem infor mation not available. Smoking Status Status Years Used Consumed packs p er day Health Concern smoking histo ry information not available. Family History Concern Status Health Concern family histor y information not available. ENCOUNTERS ENCOUNTER INFORMATION Reason for Visit HYPO OSMOLALITY AND HYPONATREMIA Admission August 27, 2025 6:58:[address] [address] Discharge August 27, 2025 6:58:00 PM UT DISCHARGED TO HOME OR SELF CARE ENCOUNTER DIAGNOSES Notes information is not shashank ilable. Code System Diagnosis Onset Date Diagnosis information is not available. ABSTRACT DIAGNOSES Code System Diagnosis Updated By Abatement Date E87.1 ICD10 HYPO-OSMOLALITY AND HYPONATREMIA [id number] on August 29, 2025 4:14:25 AM UT E87.1 ICD10 HYPO-OSMOLALITY AND HYPONATREMIA [id number] on August 29, 2025 4:14:25 AM [facility] CARE TEAM Care Custom Miller Role LEONEL OHARA Primary Attending LEONEL OHARA Admitting LEONEL OHARA Primary Care LEONEL OHARA Referring CARE TEAM CARE program evaluation consultant Role on Team Location Telecom Status Start Date End Ashwin e Updated By MAYDA JASSO APRN PCP normal August 27, 2025 4:00:00 AM [facility] August 27, 2025 6:58:00 PM UT [id number] on August 27, 2025 7:30:14 PM [facility] MAYDA JASSO APRN Referring normal August 27, 2025 4:00:00 AM [facility] August 27, 2025 6:58:00 PM UT [id number] on August 27, 2025 7:30:14 PM [facility] MAYDA JASSO APRN Attending normal August 27, 2025 4:00:00 AM [facility] August 27, 2025 6:58:00 PM UT [id number] on August 27, 2025 7:30:14 PM [facility] MAYDA JASSO APRN Admitting normal August 27, 2025 4:00:00 AM [facility] August 27, 2025 6:58:00 PM UT [id number] on August 27, 2025 7:30:14 PM [facility]
--- OUTSIDE RECORDS SUMMARY | 2025-09-10 07:21 | XMS_ITS | Clinical Summary ---
Author Organization [facility] Address [address] [place] [address] Phone Care Team Providers Care Rehab Director Name Role Phone Concepción Campbella Unavailable [ ] Conditions or Problems Problem Name Problem Code Onset Date Status Entry Date Provider Comment Standard Description Annotate Drug rash [id number] (SNOMED CT) 03/16 Active 03/16 Lloyd Campbell [...] of diseases classified elsewhere cellulitis, shoulder, right [id number] (SNOMED CT) 01/08 Active 01/08 Teresita Sawyer [...] twice a day 0 SULFAMETHOXAZO LE-TRIMETHOPRI M [id number] Lloyd Campbell MD ERTAPENEM SODIUM 1 GM SOLR 1 gm IV Q 24 hrs/OPAT 7 ERTAPENEM SODIUM [id number] Danielle Hanson RN BACTRIM DS 800-160 MG TABS Take on pill twice daily. 7 SULFAMETHOXAZO LE-TRIMETHOPRI M [id number] Lloyd Campbell MD ERTAPENEM SODIUM 1 GM SOLR 1 gm IV Q 24 hrs/OPAT 7 ERTAPENEM SODIUM 00185921087 Marium Medina RN DICLOFENAC POTASSIUM TABS Take by mouth twice a day 7 DICLOFENAC POTASSIUM TABS 21285031679 Gricelda Nigel GABAPENTIN 300 MG CAPS 7 GABAPENTIN [id number] Claire Wexford LINZESS 145 MCG CAPS 7 LINACLOTIDE [id number] Claire Wexford Medications Administered No information available. Allergies, Adverse [...] Entry Date CPT-labs Labs CPT-sl STAT Labs CPT-70329 CMP [id number] CBC with Differential 2019 CPT-75846 C- reactive protein CPT-95063 Sedimentation Rate (ESR) 202 CPT-LAB Other CPT-Cooral Continue oral antibiotics 20 31/03/19 [id number] CBC with Differential 2019 CPT-65133 CMP CPT-12535 Sedimentation Rate (ESR) 202 CPT-90401 C- reactive protein CPT-Cooral Continue oral antibiotics 20 31/03/05 [id number] CBC with Differential 2019 CPT-90119 CMP CPT-15319 Sedimentation Rate (ESR) 202 CPT-20472 C- reactive protein CPT-sl STAT Labs CPT-Cooral Continue oral antibiotics 20 01/03/21 [id number] CBC with Differential 2019 CPT-44254 CMP CPT-13120 Sedimentation Rate (ESR) 202 CPT-91607 C- reactive protein CPT-sl STAT Labs CPT-ca Continue IV antibiotics 2019 [id number] CBC with Differential 2019 CPT-92297 CMP CPT-09396 Sedimentation Rate (ESR) 202 CPT-44272 C- reactive protein CPT-kathie New Oral Antibiotic CPT-sl STAT Labs CPT-96317 CMP [id number] CBC with Differential 2019 CPT-15751 C- reactive protein CPT-97086 Sedimentation Rate (ESR) 202 CPT- stat weekly Stat Weekly Labs CPT-sl STAT Labs CPT-74393 CMP [id number] CBC with Differential 2019 CPT-14393 C- reactive protein CPT-39246 Sedimentation Rate (ESR) 202 CPT-sl STAT Labs CPT-73353 CMP [id number] CBC with Differential 2019 CPT-32618 C- reactive protein CPT-11235 Sedimentation Rate (ESR) 202 CPT-sl STAT Labs CPT-75142 CMP [id number] CBC with Differential 2019 CPT-15127 C- reactive protein CPT-27839 Sedimentation Rate (ESR) 202 CPT-sl STAT Labs CPT-24809 PICC Line Insertion CPT-sl STAT Labs CPT-74246 CMP [id number] CBC with Differential 2019 CPT-54803 C- reactive protein CPT-70731 Sedimentation Rate (ESR) 202 CPT- stat weekly [...]
--- OUTSIDE RECORDS SUMMARY | 2025-09-10 07:22 | XMS_ITS | Patient Health Record ---
Author Organization [facility] Address [address] [place] [address] Care Team Providers Care Small Lot Operator Name Role Phone RAMON MONCADA Primary Care [...] Insured Coverage Start Date Coverage End Date [employer] [facility] [address] [place] [address] [id number] Marisa Martino Self - patient is the insured
--- NOTE | 2025-09-10 07:25 | CT_ITS ---
FINAL REPORT TECHNIQUE: Routine axial images were obtained from the lung apices to below the diaphragm following IV contrast administration. Individualized dose reduction techniques using automated exposure control or adjustment of the mA and/or kV according to the patient size were employed. CLINICAL HISTORY: f/u PULM NODULE priors sent 75 ml isovue 370 COMPARISON: 01/05/2025 FINDINGS: CT CHEST WITH CONTRAST: The ascending aorta measures up to 38 mm in diameter and no mediastinal or hilar adenopathy is identified. There is streak artifact noted on multiple images secondary to the patient's known prior lumbar fusion with fixation screws. There are widespread changes of advanced centrilobular emphysema. Biapical pleural and parenchymal scarring is identified. There were diffuse interstitial and ground glass opacities on the prior examination of 01/05/2025, that appear to be less prominent than seen on the prior exam. There is an ovoid nodule in the right upper lobe, perihilar, measuring 1.6 x 0.9 cm in size, best seen on image #30 of series 2. There is a nodule in the posteromedial right upper lobe, best seen on image #33 of series 2 that measures 8 mm in size. There are several posterior right lower lobe nodules, as well as a left posterior nodule measuring up to 7 mm. These are of uncertain etiology but may represent postinflammatory change or new nodules secondary to neoplasm. IMPRESSION: The diffuse interstitial and ground glass opacities noted in the lung feng bilaterally on the prior exam have resolved. There are, however, multiple subcentimeter nodules and nodular opacities identified, that may reflect inflammatory change, although neoplasm is not excluded. Recommend follow-up CT of the chest with contrast in 1 month. If many of these nodular opacities are persistent, recommend PET/CT for further evaluation. Reviewed, Interpreted and Dictated by Skyler Mills MD Transcribed by Mari Meek Authenticated and [facility]
[2025-09-10] MEDS: IOPAMIDOL-370 (76%);100ML BOTTLE 75 ML IV (08:18)
[2025-09-10] MEDS: SODIUM CHLORIDE 0.9% 10ML SYR (RAD ONLY) 10 ML IV (08:18)
== END 2025-09-10 23:59 | disposition home or self-care (01) ==
LOC: RAD 07:20
PROVIDERS: PCP Nurse Practitioner Family; Visit Provider Nurse Practitioner Family
DX: R91.8 Other nonspecific abnormal finding of lung field (principal)
CPT/HCPCS: 71260; Q9967

== ENCOUNTER 2025-10-21 17:39 | Emergency (ER) | payer MEDICARE, MEDICAID, SELFPAY ==
[2025-10-21 18:06] VITALS: BP 87/46; PULSE 91; RESP 16; TEMP 36.4; O2SAT 100; BMI 18.6
--- NOTE | 2025-10-21 18:43 | ED_ITS ---
<Statement entered by Fabian Nuno DO - 10/22/25 00:15> I was consulted by the SENTHIL, and we discussed the complexity of problems being addressed. I approved the treatment and management plan for this patient's care in the emergency department, thus performing a substantive portion of the medical decision making. Fabian Nuno DO Is Dr. Nuno. I did independently evaluate this patient as well. Patient tells me that she was recently admitted to the hospital for community-acquired pneumonia as well as pancreatitis. She tells me that she was treated with antibiotics for few days but was discharged without any antibiotics at all. She states that since that time she has had worsening cough and production of phlegm as well as constitutional symptoms and malaise. On arrival to the emergency department the patient was acutely hypotensive with a mean arterial pressure in the 40s and relative tachycardia. We did administer 1 L IV fluids to the patient, but we did not follow her usual sepsis following of 30 cc/kg as the patient has a history of heart failure and I felt that the risk of volume overload outweighed the benefit of additional fluid administration. Therefore we started the patient on Levophed. We also obtained blood cultures and a lactic acid level. On tissue reperfusion assessment the patient's capillary refill did improve and her mean arterial pressure has improved as well. In addition to this we started the patient on broad-spectrum antibiotic therapy with vancomycin and Zosyn. We proceeded with hematologic labs as well as a CT scan of the abdomen pelvis and a chest x-ray. Labs were personally turbid by me and demonstrated leukocytosis of 13.8 which further supports my suspicions of septic shock. She has no Transfusable anemia. She does have a neutrophilic shift. On her CMP she had relative hyponatremia with a sodium of 129, hyperkalemia with a potassium of 7, she also had an acute kidney injury with a creatinine of 2.2. We treated the patient with albuterol, IV calcium gluconate, as well as 5 units of insulin and IV dextrose. We monitored the patient on continuous telemetry and did not observe any evidence of cardiac arrhythmia. We also obtained an EKG that showed normal sinus rhythm and no evidence of peaked T waves or changes in her intervals that would reflect her hyperkalemia. Chest x-ray was personally interpreted by me and demonstrates multifocal opacities within the right lung consistent with pneumonia. Official radiology read is in agreement with my interpretation. We did also obtain a CT scan of the abdomen pelvis that was personally interpreted by me and demonstrates redemonstrated findings of pneumonia within the right lung and no evidence of pneumoperitoneum. Official radiology read additionally notes that there is findings of enteritis with a mild ileus. Ultimately, we do not have dialysis capabilities here at our hospital. Given the fact that the patient has an acute kidney injury with hyperkalemia she may end up developing and need for dialysis. Therefore we elected to proceed with transfer to [facility]. Patient was transferred in quasi stable condition on a Levophed drip. This patient did receive 47 minutes of critical care which consisted of injury of the patient, corroborating history with family, reviewing prior records, charting, obtaining IV access, administering vasoactive medications, and monitoring continuous telemetry. Limited Ultrasound Indication:: Ultrasound-guided line placement Indication: - Difficult IV access, numerous unsuccessful sticks Identified structures: - Right median vein Location/access site: - Right upper extremity Vessel patency: - Patent Direct visualization? - Yes Impression: Successful placement of 20-gauge IV catheter in the left upper extremity median vein CPT Codes: Venipuncture: 90744-28 Age <3 yo: 49968-99 Age >3yo: 01089-53 Central line <5 yo: 74341-26 Central line >5 yo: 49288-77 Discharge Plan Disposition Chief Complaint: Abdominal Pain Prescriptions Prescriptions: No Action cephalexin 500 mg capsule 500 mg PO TID 5 Days Qty: 15 0RF linaclotide 145 MCG capsule 145 mcg PO DAILY omeprazole 20 mg capsule,delayed release(DR/EC) 20 mg PO DAILY Patient Comments: TAKE 1 CAPSULE BY MOUTH ONCE DAILY AROUND THE CLOCK rosuvastatin 10 mg tablet 10 mg PO HS Patient Comments: TAKE 1 TABLET BY MOUTH ONCE DAILY Trelegy Ellipta 200-62.5-25 mcg blister with device 1 inh INHALATION DAILY Patient Comments: INHALE 1 PUFF ONCE DAILY potassium chloride 20 mEq tablet,ER particles/crystals 20 meq PO DAILY Patient Comments: TAKE 1 TABLET BY MOUTH ONCE DAILY fluticasone propionate 50 mcg/actuation spray,suspension 1 spray INTRANASAL DAILY Patient Comments: USE 1 SPRAY(S) IN EACH NOSTRIL ONCE DAILY diclofenac sodium 75 mg tablet,delayed release (DR/EC) 75 mg PO BIDP PRN (Reason: ARTHRITIS PAIN) Patient Comments: TAKE 1 TABLET BY MOUTH TWICE DAILY WITH FOOD OR MILK nystatin 100,000 unit/mL Suspension 500,000 unit PO QID 10 Days Qty: 200 0RF cefdinir 300 mg capsule 300 mg PO BID 7 Days Qty: 14 0RF prednisone 20 mg tablet 40 mg PO DAILY 5 Days Qty: 10 0RF azithromycin [Zithromax Z-Danis] 250 mg tablet 250 mg PO DAILY 5 Days Qty: 5 0RF methocarbamol 750 mg tablet 750 mg PO TID PRN (Reason: muscle spasm) 7 Days Qty: 21 0RF cetirizine 10 mg tablet 10 mg PO DAILY Patient Comments: TAKE 1 TABLET BY MOUTH ONCE DAILY ergocalciferol (vitamin D2) 1,250 mcg (50,000 unit) capsule 1,250 mcg PO WEEKLY Patient Comments: TAKE 1 CAPSULE BY MOUTH ONCE A WEEK furosemide 40 mg Tablet 40 mg PO DAILY 30 Days Qty: 30 0RF prednisone 20 mg Tablet 40 mg PO DAILY 7 Days Qty: 14 0RF nicotine 21 mg/24 hr Patch 24 Hour 21 mg transdermal DAILY 30 Days Qty: 28 0RF metoprolol succinate 25 mg Tablet Extended Release 24 Hr 25 mg PO DAILY 30 Days Qty: 30 0RF sacubitril-valsartan [Entresto] 24-26 mg Tablet 1 tab PO BID 30 Days Qty: 60 0RF Trelegy Ellipta 100-62.5-25 mcg Blister With Device 1 inh inhalation DAILY 30 Days Qty: 60 0RF ipratropium-albuterol 0.5 mg-3 mg(2.5 mg base)/3 mL Solution For Nebulization 3 ml inhalation Q6HP PRN (Reason: Shortness Of Breath) 30 Days Qty: 180 0RF spironolactone 25 mg Tablet 25 mg PO DAILY 30 Days Qty: 30 0RF sodium chloride 1,000 mg Tablet,Soluble 1,000 mg PO DAILY 30 Days Qty: 30 0RF Referrals Follow up/Referrals: Debora Mckeon [Primary Care Provider, Medical] - See instructions Stand Alone Forms Stand Alone Forms: Transfer Record - ED Instructions Patient Instructions: DI for Acute Abdominal Pain Print Language Print Language: Maori Discharge ED Provider: Fabian Nuno Adult HPI <ANY Brower - Last Filed: 10/21/25 21:28> General Chief complaint: Abdominal Pain Stated complaint: diarrhea for 2 days non eating Time Seen by Provider: 10/21/25 18:16 Mode of Arrival: Ambulatory Source of Information: Patient Description of Symptoms (Recalled from ER Triage Doc. by RN): patient presents to the ED for abdominal pain that started Sunday. she has has n/v/d that started that day and has progressed since Sunday. she stated it hurts all over and she rates the pain 8/10. History of Present Illness HPI narrative: Patient presents complaining of diarrhea since Sunday. She has had decreased appetite as well. She is drinking Sprite and water. She reports generalized abdominal aching. Denies any blood in the stool. Denies any nausea or vomiting. Denies any fevers. MD complaint: Diarrhea, abdominal pain Onset (ago): day(s) Location: abdomen Radiation: non-radiation Severity: moderate Quality: aching Consistency: constant Relieving factors: none Exacerbating factors: none Associated symptoms: other (Diarrhea); negative fever/chills Treatments prior to arrival: none Related Data Home Medications ?Medication ?Instructions ?Recorded ?Confirmed linaclotide 145 mcg capsule 145 mcg PO DAILY 01/16/22 08/26/25 diclofenac sodium 75 mg 75 mg PO BIDP PRN ARTHRITIS PAIN 12/18/24 08/26/25 tablet,delayed release fluticasone fur. 200 mcg-umeclid 1 inh inhalation RAKEL Y 12/18/24 08/26/25 62.5 mcg-vilant 25 mcg inhalat.powder (Trelegy Ellipta) fluticasone propionate 50 1 spray intranasal DAILY 05/0608/26/25 mcg/actuation nasal spray,suspension omeprazole 20 mg capsule,delayed 20 mg PO DAILY 08/26/25 release potassium chloride 20 mEq 20 meq PO DAILY 12/18/24 tablet,extended release(part/cryst) rosuvastatin 10 mg tablet 10 mg PO HS 12/18/24 cetirizine 10 mg tablet 10 mg PO DAILY 12/26/2408/12 ergocalciferol (vitamin D2) 1,250 1,250 mcg PO WEEKLY 12/26/24 08/26/25 mcg (50,000 unit) capsule Previous Rx's ?Medication ?Instructions ?Recorded nystatin 100,000 unit/mL oral 500,000 unit (5 mL) PO Q ID 10 days 12/19/24 suspension #200 mL fluticasone fur. 100 mcg-umeclid 1 inh inhalation RAKEL Y 30 days #60 01/11/25 62.5 mcg-vilant 25 mcg ea inhalat.powder (Trelegy Ellipta) furosemide 40 mg tablet 40 mg PO DAILY 30 days #30 t abs 01/11/25 ipratropium 0.5 mg-albuterol 3 mg 3 ml inhalation Q6HP PRN Shortness 01/11/25 (2.5 mg base)/3 mL nebulization Of Breath 30 days #180 mL soln metoprolol succinate 25 mg 25 mg PO DAILY 30 days #30 tabs 01/11/25 tablet,extended release 24 hr nicotine 21 mg/24 hr daily 21 mg transdermal DAILY 30 days 01/11/25 transdermal patch #28 ea prednisone 20 mg tablet 40 mg (2 x 20 mg) PO DAILY 7 days 01/11/25 #14 tabs sacubitril 24 mg-valsartan 26 mg 1 tab PO BID 30 days #60 tabs 01/11/25 tablet (Entresto) sodium chloride 1,000 mg soluble 1,000 mg PO DAILY 30 days #30 tabs 01/11/25 tablet spironolactone 25 mg tablet 25 mg PO DAILY 30 days #30 tabs 01/11/25 cefdinir 300 mg capsule 300 mg PO BID 7 days #14 cap s 06/10/25 cephalexin 500 mg capsule 500 mg PO TID 5 days #15 cap s 07/14/25 azithromycin 250 mg tablet 250 mg PO DAILY 5 days #5 t abs 08/15/25 (Zithromax Z-Danis) methocarbamol 750 mg tablet 750 mg PO TID PRN muscle s pasm 7 08/15/25 days #21 tabs prednisone 20 mg tablet 40 mg (2 x 20 mg) PO DAILY 5 days 08/15/25 #10 tabs Allergies Allergy/AdvReac Type Severity Reaction Status Date / Time No Known Allergies Allergy Verified 08/26/25 11:29 [facility] <NAY Brower - Last Filed: 10/21/25 21:28> [facility] Disclaimer: The information contained in this section may have been updated after the patient was seen, as this information can be updated by other users. Medical History (Reviewed 08/26/25 @ 11: by America Rivera MA) Pericardial effusion Acute urinary retention Right lower lobe pneumonia Adult failure to thrive Acute on chronic hypoxic respiratory failure Confusion COPD exacerbation Pneumonia MRSA pneumonia Unresolved pneumonia Pseudomonas pneumonia Acute respiratory failure with hypoxemia Encounter for screening for malignant neoplasm of lung in current smoker with 30 pack year history or greater Pleural thickening Lung nodule Tobacco abuse disorder Tobacco abuse counseling COPD (chronic obstructive pulmonary disease) Smoking greater than 30 pack years Dyspnea on exertion Surgical History (Reviewed 08/26/25 @ 11: by America Rivera MA) Previous back surgery Family History (Reviewed 08/26/25 @ 11: by America Rivera MA) Other No significant family history Social History (Reviewed 08/26/25 @ : by America Rivera MA) Smoking Status: Current every day smoker tobacco type: cigarettes packs per day: 3 alcohol intake: never substance use type: denies use current occupational status: disabled Travel in the last 8 weeks?: None household members: significant other housing: house caffeine: Yes Have you lived/traveled outside [place] in past 30 days?: No Contact w/someone who lives/traveled outside [place] past 30 days?: No Exposure to someone with infectious disease in past 14 days?: No Do you have a fever (greater than 100.4 F or 38 C)?: No Have you tested positive for COVID-19?: No Exposed to someone with COVID-19 in past 14 days?: No Do you have a sore throat?: No Do you have a cough?: No Do you have any weakness?: No Do you have any diarrhea?: No Are you experiencing any unusual bleeding?: No Do you have any muscle aches/pain?: No Do you have any abdominal pain?: No Are you experiencing loss of taste or smell?: No Other Medical History Have you received the Flu Vaccine for this season: No Have you received the Pneumonia Vaccine: No <ANY Brower - Last Filed: 10/21/25 21:28> ROS Obtained: Yes Systems reviewed as appropriate & no additional complaints except as documented Physical Exam <ANY Brower - Last Filed: 10/21/25 21:28> General General appearance: alert and in no apparent distress Head Head exam: atraumatic and normocephalic Eye Eye exam: Present normal appearance and EOMI Chest Chest inspection: Present symmetric chest wall rise Respiratory Respiratory exam: Present normal lung sounds bilaterally; Absent wheezes or stridor Cardiovascular Cardiovascular exam: Present regular rate and normal rhythm; Absent systolic murmur Abdominal Exam Abdominal exam: Present soft; Absent distention Abdominal tenderness: Present RLQ and LLQ Extremities Exam Extremities exam: Present full ROM Neurological Exam Neurological exam: Present alert and oriented X3 Psychiatric Psychiatric exam: Present normal affect and normal mood Skin Skin exam: Present warm, dry and intact Medical Decision Making <ANY Brower - Last Filed: 10/21/25 21:28> Medical Records Screening: Per USPSTF and CDC recommendations, given the prevalence of disease in our region, it is our hospital?s policy to screen for HIV and viral Hepatitis for all patients aged 18 and over and those with ongoing risk factors. Kayden Inquiry Pt receiving controlled substance: No Vital Signs: 10/21/25 18:06 Temperature 97.6 F Temperature Source Oral Pulse Rate [Right Radial] 91 H Respiratory Rate 16 Blood Pressure [Right Arm] 87/46 L Blood Pressure Mean [Right Arm] 59 Blood Pressure Source [Right Arm] Automatic Cuff Blood Pressure Position [Right Arm] Sitting 02 Sat by Pulse Oximetry 100 Oxygen Delivery Method Room Air Lab Data Lab Results 10/21/25 18:47: WBC 13.8 H, RBC 3.94 L, Hgb 10.0 L, Hct 31.7 L, MCV 80.5 L, MCH 25.4 L, MCHC 31.5 L, RDW 20.4 H, Plt Count 196, MPV 10.2, Neut % (Auto) 91.5 H, Lymph % (Auto) 3.5 L, Taylor % (Auto) 3.9, Eos % (Auto) 0.2, Baso % (Auto) 0.2, N eut # (Auto) 12.6 H, Lymph # (Auto) 0.5 L, Taylor # (Auto) 0.5, Eos # (Auto) 0.0, Baso # (Auto) 0.0, Total Counted 100, Neutrophils % (Manual) 95 H, Lymphocytes % (Manual) 3 L, Monocytes % (Manual) 2, Toxic Granulation 1+, Platelet Estimate Normal, Polychromasia 1+, Hypochromasia 1+, Poikilocytosis 1+, Anisocytosis 1+, Microcytosis 1+, Macrocytosis 1+, Tear Drop Cells 1+, Ovalocytes 1+, Elliptocytes 1+, Sodium 129 L, Potassium 7.0 H*, Chloride 101, Carbon Dioxide 14 L, Anion Gap 21.0 H, BUN 73 H, Creatinine 2.20 H, Estimated Creat Clear 20, E stimated GFR 22 L, Est GFR ( Amer) 27 L, Glucose 70 L, Lactate 0.9, Calcium 9.0, Total Bilirubin 0.5, AST 24, ALT 15, Alkaline Phosphatase 88, Total Protein 6.9, Albumin 3.5, Globulin 3.4 H, Albumin/Globulin Ratio 1.0 L, Lipase 432 H 10/21/25 20:12: Urine Color Yellow, Urine Appearance Clear, Urine pH 6.0, Ur Specific [place] 1.010, Urine Protein Negative, Urine Glucose (UA) Trace, Urine Ketones Negative, Urine Blood Negative, Urine Nitrate Negative, Urine Bilirubin Negative, Urine Urobilinogen 0.2, Ur Leukocyte Esterase Negative, Urine RBC 3-5, Urine WBC 3-5, Ur Squamous Epith Cells 5-10, Urine Bacteria 1+ 10/21/25 20:18: Lactate 0.7 10/21/25 20:53: Sodium 129 L, Potassium 6.0 H, Chloride 102, Carbon Dioxide 17 L , Anion Gap 16.0 H, BUN 69 H, Creatinine 2.00 H, Estimated Creat Clear 22, E stimated GFR 25 L, Est GFR ( Amer) 30 L, Glucose 192 H D, Calcium 9.0 10/21/25 18:47 10/21/25 20:53 Orders (Tests/Meds): ED MEDICATIONS Generic Name Dose Route Start Last Admin Trade Name Freq PRN Reason Stop Dose Admin Norepinephrine/Dextrose 8 mg in 250 mls @ 3.75 mls/hr 10/21/25 19:14 10/21/25 21:50 Levophed 8mg/250ml-D5w Premix IV 11/20/25 19:13 8 mcg/min .Q24H ROMULO 15 mls/hr Protocol Administration 2 MCG/MIN Piperacillin Sod/Tazobactam 100 mls @ 200 mls/hr 10/21/25 19:15 10/21/25 20:48 Sod 4.5 gm/ Sodium Chloride IV 10/31/25 19:14 Infused Q8H ROMULO Infusion Calcium Gluconate/Sodium Chloride 1 gm in 50 mls @ 50 mls/hr 10/21/25 21:37 Calcium Gluconate 1,000mg/50ml Nacl Premix IV 10/21/25 22:36 ONCE ONE Miscellaneous 1 each 10/21/25 19:15 Vancomycin Consult Request NOTAPPLIC 11/20/25 19:14 CONSULT PHARMACY ROMULO Sodium Chloride 10 ml 10/21/25 18:24 Sodium Chloride 0.9% 10ml Flush Syringe IV 11/20/25 18:23 NEEDED PRN Maintain IV Site Discontinued Medications Generic Name Dose Route Start Last Admin Trade Name Freq PRN Reason Stop Dose Admin Albuterol Sulfate 20 mg 10/21/25 19:26 10/21/25 20:26 Albuterol 0.083% 2.5 Mg/3 Ml Neb IH 10/21/25 19:27 20 mg ONCE ONE Administration Calcium Gluconate 1,000 mg 10/21/25 20:15 10/21/25 20:32 Calcium Gluconate 1gm/10ml (10%) Vial IV 10/21/25 20:16 1,000 mg ONCE ONE Administration Dextrose 50 ml 10/21/25 19:32 10/21/25 19:50 Dextrose 50% 50ml Syringe (Crash Cart) IVP 10/21/25 19:33 50 ml ONCE ONE Administration Sodium Chloride 1,000 mls @ 999 mls/hr 10/21/25 18:52 10/21/25 20:55 Sod Chlor 0.9% 1000ml Bag IV 10/21/25 19:52 Infused .Q1H1M ONE Infusion Vancomycin HCl 1,000 mg/ 250 mls @ 125 mls/hr 10/21/25 19:30 10/21/25 19:50 Sodium Chloride IV 10/21/25 21:29 125 mls/hr ONCE ONE Administration Insulin Human Regular 5 unit 10/21/25 19:26 10/21/25 20:22 Insulin Human Regular 100 Units/Ml 10ml Vial IVP 10/21/25 19:27 5 unit ONCE ONE Administration ORDERS Category Date Time Status CT abdomen pelvis wo con Stat Cat Scan 10/21/25 19:37 Completed CXR --portable [XR chest portable] Stat Exams 10/21/25 19:33 Completed BMP [Basic Metabolic Panel] Stat Lab 10/21/25 20:53 Completed CBC w/Auto Diff [Complete Blood Count Auto Diff] Stat Lab 10/21/25 18:47 Completed CMP [Comprehensive Metabolic Panel] Stat Lab 10/21/25 18:47 Completed Lactic Acid Stat Lab 10/21/25 18:47 Completed Lactic Acid Stat Lab 10/21/25 20:18 Completed Lipase Stat Lab 10/21/25 18:47 Completed Urinalysis and Microscopic Stat Lab 10/21/25 20:12 Completed Blood Culture Stat Micro 10/21/25 19:31 Received Medical Decision Narrative: In summary patient is a 65-year-old who presents the emergency department for evaluation of abdominal pain and diarrhea. Patient is hypotensive upon upon arrival, afebrile. Lower abdominal tenderness on exam. Differential diagnosis includes dehydration, sepsis, THUAN, electrolyte abnormality, diverticulitis, pneumonia, urinary tract infection. Initial workup will be conducted with labs, urinalysis, CT, chest x-ray. Initial inventions include IV fluid. Hypotension did worsen during her stay and patient was started on pressors. Initial workup reviewed by me significant hyperkalemia at 7, no significant EKG changes. She also has pneumonia on chest x-ray and CT abdomen pelvis. Given Vanco and Zosyn. Patient has an acute kidney injury and leukocytosis. patient was given albuterol, insulin and D50 as well as calcium gluconate. Upon repeat evaluation patient had significant improvement in her blood pressure with norepinephrine and IV fluids. Given this patient transferred to [facility] for admission for her THUAN, hypotension, pneumonia, hyperkalemia. <Fabian Nuno DO - Last Filed: 10/21/25 22:00> Medical Records Medical records reviewed: Yes I reviewed the patient's medical records. Vital Signs: 10/21/25 18:06 Temperature 97.6 F Temperature Source Oral Pulse Rate [Right Radial] 91 H Respiratory Rate 16 Blood Pressure [Right Arm] 87/46 L Blood Pressure Mean [Right Arm] 59 Blood Pressure Source [Right Arm] Automatic Cuff Blood Pressure Position [Right Arm] Sitting 02 Sat by Pulse Oximetry 100 Oxygen Delivery Method Room Air Lab Data Lab Results 10/21/25 18:47: WBC 13.8 H, RBC 3.94 L, Hgb 10.0 L, Hct 31.7 L, MCV 80.5 L, MCH 25.4 L, MCHC 31.5 L, RDW 20.4 H, Plt Count 196, MPV 10.2, Neut % (Auto) 91.5 H, Lymph % (Auto) 3.5 L, Taylor % (Auto) 3.9, Eos % (Auto) 0.2, Baso % (Auto) 0.2, N eut # (Auto) 12.6 H, Lymph # (Auto) 0.5 L, Taylor # (Auto) 0.5, Eos # (Auto) 0.0, Baso # (Auto) 0.0, Total Counted 100, Neutrophils % (Manual) 95 H, Lymphocytes % (Manual) 3 L, Monocytes % (Manual) 2, Toxic Granulation 1+, Platelet Estimate Normal, Polychromasia 1+, Hypochromasia 1+, Poikilocytosis 1+, Anisocytosis 1+, Microcytosis 1+, Macrocytosis 1+, Tear Drop Cells 1+, Ovalocytes 1+, Elliptocytes 1+, Sodium 129 L, Potassium 7.0 H*, Chloride 101, Carbon Dioxide 14 L, Anion Gap 21.0 H, BUN 73 H, Creatinine 2.20 H, Estimated Creat Clear 20, E stimated GFR 22 L, Est GFR ( Amer) 27 L, Glucose 70 L, Lactate 0.9, Calcium 9.0, Total Bilirubin 0.5, AST 24, ALT 15, Alkaline Phosphatase 88, Total Protein 6.9, Albumin 3.5, Globulin 3.4 H, Albumin/Globulin Ratio 1.0 L, Lipase 432 H 10/21/25 20:12: Urine Color Yellow, Urine Appearance Clear, Urine pH 6.0, Ur Specific [place] 1.010, Urine Protein Negative, Urine Glucose (UA) Trace, Urine Ketones Negative, Urine Blood Negative, Urine Nitrate Negative, Urine Bilirubin Negative, Urine Urobilinogen 0.2, Ur Leukocyte Esterase Negative, Urine RBC 3-5, Urine WBC 3-5, Ur Squamous Epith Cells 5-10, Urine Bacteria 1+ 10/21/25 20:18: Lactate 0.7 10/21/25 20:53: Sodium 129 L, Potassium 6.0 H, Chloride 102, Carbon Dioxide 17 L , Anion Gap 16.0 H, BUN 69 H, Creatinine 2.00 H, Estimated Creat Clear 22, E stimated GFR 25 L, Est GFR ( Amer) 30 L, Glucose 192 H D, Calcium 9.0 Orders (Tests/Meds): ED MEDICATIONS Generic Name Dose Route Start Last Admin Trade Name Joyce PRN Reason Stop Dose Admin Norepinephrine/Dextrose 8 mg in 250 mls @ 3.75 mls/hr 10/21/25 19:14 10/21/25 21:50 Levophed 8mg/250ml-D5w Premix IV 11/20/25 19:13 8 mcg/min .Q24H ROMULO 15 mls/hr Protocol Administration 2 MCG/MIN Piperacillin Sod/Tazobactam 100 mls @ 200 mls/hr 10/21/25 19:15 10/21/25 20:48 Sod 4.5 gm/ Sodium Chloride IV 10/31/25 19:14 Infused Q8H ROMULO Infusion Calcium Gluconate/Sodium Chloride 1 gm in 50 mls @ 50 mls/hr 10/21/25 21:37 Calcium Gluconate 1,000mg/50ml Nacl Premix IV 10/21/25 22:36 ONCE ONE Miscellaneous 1 each 10/21/25 19:15 Vancomycin Consult Request NOTAPPLIC 11/20/25 19:14 CONSULT PHARMACY ROMULO Sodium Chloride 10 ml 10/21/25 18:24 Sodium Chloride 0.9% 10ml Flush Syringe IV 11/20/25 18:23 NEEDED PRN Maintain IV Site Discontinued Medications Generic Name Dose Route Start Last Admin Trade Name Joyce PRN Reason Stop Dose Admin Albuterol Sulfate 20 mg 10/21/25 19:26 10/21/25 20:26 Albuterol 0.083% 2.5 Mg/3 Ml Neb IH 10/21/25 19:27 20 mg ONCE ONE Administration Calcium Gluconate 1,000 mg 10/21/25 20:15 10/21/25 20:32 Calcium Gluconate 1gm/10ml (10%) Vial IV 10/21/25 20:16 1,000 mg ONCE ONE Administration Dextrose 50 ml 10/21/25 19:32 10/21/25 19:50 Dextrose 50% 50ml Syringe (Crash Cart) IVP 10/21/25 19:33 50 ml ONCE ONE Administration Sodium Chloride 1,000 mls @ 999 mls/hr 10/21/25 18:52 10/21/25 20:55 Sod Chlor 0.9% 1000ml Bag IV 10/21/25 19:52 Infused .Q1H1M ONE Infusion Vancomycin HCl 1,000 mg/ 250 mls @ 125 mls/hr 10/21/25 19:30 10/21/25 19:50 Sodium Chloride IV 10/21/25 21:29 125 mls/hr ONCE ONE Administration Insulin Human Regular 5 unit 10/21/25 19:26 10/21/25 20:22 Insulin Human Regular 100 Units/Ml 10ml Vial IVP 10/21/25 19:27 5 unit ONCE ONE Administration ORDERS Category Date Time Status CT abdomen pelvis wo con Stat Cat Scan 10/21/25 19:37 Completed CXR --portable [XR chest portable] Stat Exams 10/21/25 19:33 Completed BMP [Basic Metabolic Panel] Stat Lab 10/21/25 20:53 Completed CBC w/Auto Diff [Complete Blood Count Auto Diff] Stat Lab 10/21/25 18:47 Completed CMP [Comprehensive Metabolic Panel] Stat Lab 10/21/25 18:47 Completed Lactic Acid Stat Lab 10/21/25 18:47 Completed Lactic Acid Stat Lab 10/21/25 20:18 Completed Lipase Stat Lab 10/21/25 18:47 Completed Urinalysis and Microscopic Stat Lab 10/21/25 20:12 Completed Blood Culture Stat Micro 10/21/25 19:31 Received ECG Data Tracing #1: I reviewed this ECG and interpreted as documented below: EKG personally turbid by me demonstrates normal sinus rhythm at a rate of 90 bpm, normal axis, no WI prolongation, narrow QRS, no QTc prolongation. No ST elevation or depression. No overt signs of ischemia or arrhythmia. Critical Care <ANY Brower - Last Filed: 10/21/25 21:28> Critical Care Time Critical Care Time: Yes Attestation: On 10/21/25, the high probability of a clinically significant, sudden or life threatening deterioration of the following system(s) required my full and direct attention, intervention and personal management. The time I documented below is in addition to time spent performing reported procedures but includes the following listed in this critical care notation. Total Time Total Critical Care Time: 30 <Fabian Nuno DO - Last Filed: 10/21/25 22:00> Total Time Total Critical Care Time: 47
[2025-10-21 19:03] LABS: Hematocrit 31.7 % (37.0-47.0); Hemoglobin 10.0 g/dL (12.2-16.2); Immature Granulocytes % 0.7 %; Mean Corpuscular HGB Conc 31.5 g/dL (31.8-35.4); Mean Corpuscular Hemoglobin 25.4 pg (27.0-31.2); Mean Corpuscular Volume 80.5 fl (81-99); Nucleated Red Blood Cells % 0 %; Platelet Count 196 K/mm3 (142-424); Red Blood Count 3.94 M/mm3 (4.20-5.40); Red Cell Distribution Width-SD 59.4 fL; White Blood Count 13.8 K/mm3 (4.8-10.8)
[2025-10-21 19:07] LABS: Albumin Level 3.5 g/dl (3.5-5.0); Chloride 101 mmol/L (98-107); Sodium 129 mmol/L (136-145)
[2025-10-21 19:10] LABS: Alanine Aminotransferase 15 U/L (12-78); Albumin/Globulin Ratio 1.0 (1.1-1.8); Alkaline Phosphatase 88 U/L (38-126); Anion Gap 21.0 mEq/L (5-15); Aspartate Amino Transferase 24 U/L (14-36); Bilirubin,Total 0.5 mg/dl (0.2-1.3); Blood Urea Nitrogen 73 mg/dl (7-17); Calcium 9.0 mg/dl (8.4-10.2); Carbon Dioxide 14 mmol/L (22.0-30.0); Creatinine Clearance Estimated 20 mL/min (50-200); Creatinine,Serum 2.20 mg/dl (0.52-1.04); Estimated Glomerular Filt Rate 22 ml/min (>60); GFR (African American) 27 ML/MIN (>60); Globulin 3.4 g/dL (1.3-3.2); Glucose 70 mg/dl (74-100); Lipase 432 U/L (23-300); Total Protein,Serum 6.9 g/dl (6.3-8.2)
[2025-10-21 19:11] LABS: Potassium 7.0 mmoL/L (3.5-5.1)
--- NOTE | 2025-10-21 19:16 | ECG_ITS ---
APPROVED REPORT Exam: Resting ECG HR:90 bpm ECG Measurements Heart Rate 90 AXES AK 195 P 25 QRSd 90 QRS 14 QT 351 T 83 QTc 399 Conclusion Normal sinus rhythm Normal axis Normal intervals No STEMI Electronically signed by : Fabian Nuno, 10/22/2025 23:21:06
--- NOTE | 2025-10-21 19:22 | PC.NURSE ---
at bedside doing US IV
[2025-10-21] MEDS: 0.9 % SODIUM CHLORIDE 1000ML 1,000 ML 999 ML IV (19:23)
[2025-10-21] MEDS: PIPERACILLIN/TAZO 4.5 GM in 0.9 % SODIUM CHLORIDE 100 ML IV (19:33)
--- NOTE | 2025-10-21 19:33 | XR_ITS ---
PROCEDURE INFORMATION: Exam: XR Chest Exam date and time: 10/21/2025 7:53 PM Age: 65 years old Clinical indication: Pain; Chest pressure; Additional info: Concern for sepsis TECHNIQUE: Imaging protocol: Radiologic exam of the chest. Views: 1 view. COMPARISON: CT CHEST W CON 09/10/2025 8:04 AM FINDINGS: Lungs: Right lung airspace disease is worrisome for pneumonia. Pleural spaces: Unremarkable. No pleural effusion. No pneumothorax. Heart/Mediastinum: Cardiomegaly. Vasculature: Vascular calcifications. Bones/joints: Postsurgical changes of the right shoulder. Postsurgical changes of the thoracolumbar spine. IMPRESSION: 1. Right lung airspace disease is worrisome for pneumonia. Recommend imaging follow-up to resolution to exclude underlying malignancy/metastatic disease. 2. THIS REPORT CONTAINS FINDINGS THAT MAY BE CRITICAL TO PATIENT CARE. The findings were verbally communicated via telephone conference with Azul Nix at 8:27 PM EST on 10/21/2025. The findings were acknowledged and understood.
--- NOTE | 2025-10-21 19:37 | CT_ITS ---
PROCEDURE INFORMATION: Exam: CT Abdomen And Pelvis Without Contrast Exam date and time: 10/21/2025 7:48 PM Age: 65 years old Clinical indication: Abdominal pain; Additional info: Abd pain, diarrhea TECHNIQUE: Imaging protocol: Computed tomography of the abdomen and pelvis without contrast. Radiation optimization: All CT scans at this facility use at least one of these dose optimization techniques: automated exposure control; mA and/or kV adjustment per patient size (includes targeted exams where dose is matched to clinical indication); or iterative reconstruction. COMPARISON: CT ABDOMEN PELVIS W CON 06/09/2025 10:58 PM FINDINGS: Lungs: Bibasilar nodular airspace disease worrisome for aspiration pneumonitis versus pneumonia. Heart: Cardiomegaly. Mitral and aortic valve calcifications. Coronary arteries: Coronary artery calcifications. Liver: Normal. No mass. Gallbladder and biliary ducts: Normal. No calcified stones. No ductal dilation. Pancreas: Normal. No ductal dilation. Spleen: Normal. No splenomegaly. Adrenal glands: Normal. No mass. Kidneys and ureters: Left renal atrophy with compensatory hypertrophy of the right kidney. Stomach and bowel: Liquid fecal contents in the colon, which could correlate with diarrhea clinically. Distended segments of small bowel without a transition point. Appendix: No evidence of appendicitis. Intraperitoneal space: Unremarkable. No free air. No significant fluid collection. Vasculature: The arteries demonstrate severe atherosclerotic disease. Lymph nodes: Unremarkable. No enlarged lymph nodes. Urinary bladder: Unremarkable as visualized. Reproductive: Unremarkable as visualized. Bones/joints: Chronic left rib fractures. Postsurgical changes of the sacroiliac joints and of the spine from the thoracic to sacral spine. The hardware appears intact. Soft tissues: There is a healed anterior abdominal wall incision. IMPRESSION: 1. Nonspecific findings that suggest enteritis with mild ileus. 2. Bibasilar nodular airspace disease worrisome for aspiration pneumonitis versus pneumonia. Recommend imaging follow-up to resolution to exclude underlying malignancy/metastatic disease.
--- NOTE | 2025-10-21 19:40 | PC.NURSE ---
per Azul AGARWAL provider, verbal orders given to administer D50 first due to acute hypoglycemia, wait a bit, check glucose and then proceed with insulin for the hyperkalemia protocol. verbal orders repeated and correct.
--- NOTE | 2025-10-21 19:46 | PC.NURSE ---
Call out to [facility] for possible transfer to [place]
[2025-10-21] MEDS: DEXTROSE 50% 50ML SYRINGE (CRASH CART) 50 ML IVP (19:50)
[2025-10-21] MEDS: VANCOMYCIN HCL 1,000 MG in 0.9 % SODIUM CHLORIDE 250 ML 125 MG IV (19:50)
--- NOTE | 2025-10-21 19:52 | PC.NURSE ---
Azul speaking with [facility] for possible trasnfer
[2025-10-21 20:04] LABS: Anisocytosis 1+; Macrocytosis 1+; Ovalocytes 1+; Poikilocytosis 1+; Polychromasia 1+; Tear Drop Cells 1+; Total Cells Counted 100
[2025-10-21 20:05] LABS: Microcytosis 1+
[2025-10-21 20:06] LABS: Hypochromasia 1+; Toxic Granulation 1+
[2025-10-21 20:19] LABS: Microscopic, Urine URINE MICROSCOPIC (MICROSCOPIC)
--- NOTE | 2025-10-21 20:19 | PC.NURSE ---
pt placed on bearhugger; pts rectal temp was 96.1 pt has a temp sense foly in and temp at this time is 95.7
[2025-10-21] MEDS: INSULIN HUMAN REGULAR 100 UNITS/ML 10ML VIAL 5 UNIT IVP (20:22)
--- NOTE | 2025-10-21 20:23 | PC.NURSE ---
Contacted OB r/t Calcium Gluc. being sent down
--- NOTE | 2025-10-21 20:25 | PC.NURSE ---
ANY Alvarenga speaking with [facility]
[2025-10-21] MEDS: ALBUTEROL 0.083% 2.5 MG/3 ML NEB 20 MG IH (20:26)
[2025-10-21 20:32] LABS: Bilirubin,Urine Negative (Negative); Color,Urine YELLOW (Yellow); Glucose,Urine (UA) TRACE (Negative); Ketones,Urine Negative (Negative); Leukocyte Esterase,Urine Negative (Negative); PH,Urine 6.0 (5.0-8.5); Protein,Urine Negative (Negative); Specific Gravity, Urine 1.010 (1.005-1.030); Urobilinogen,Urine 0.2 EU/dl (0.2)
[2025-10-21] MEDS: CALCIUM GLUCONATE 1000 MG IV (20:32)
--- NOTE | 2025-10-21 20:37 | PC.NURSE ---
glucose 231 prior to insulin admin
--- NOTE | 2025-10-21 20:52 | PC.NURSE ---
Tigre Nix speaking with the [facility] provider following up with scans
[2025-10-21 21:11] LABS: Chloride 102 mmol/L (98-107); Sodium 129 mmol/L (136-145)
[2025-10-21 21:14] LABS: Anion Gap 16.0 mEq/L (5-15); Blood Urea Nitrogen 69 mg/dl (7-17); Calcium 9.0 mg/dl (8.4-10.2); Carbon Dioxide 17 mmol/L (22.0-30.0); Creatinine Clearance Estimated 22 mL/min (50-200); Creatinine,Serum 2.00 mg/dl (0.52-1.04); Estimated Glomerular Filt Rate 25 ml/min (>60); GFR (African American) 30 ML/MIN (>60); Glucose 192 mg/dl (74-100)
[2025-10-21 21:35] LABS: Potassium 6.0 mmoL/L (3.5-5.1)
--- NOTE | 2025-10-21 21:41 | PC.NURSE ---
report called to [facility], spoke with Alo VILLAREAL
[2025-10-21 21:49] LABS: Bacteria,Urine 1+ /lpf
[2025-10-21] MEDS: NOREPINEPHRINE BITARTRATE/D5W 8 MG/250 ML PLAST..BAG 15 MG IV (21:50)
--- NOTE | 2025-10-21 23:15 | PC.NURSE ---
Pt transported to [facility] via ambulance IV infusion contunued during transport
[2025-10-21 23:19] VITALS: BP 106/61; PULSE 114; RESP 20; TEMP 36.1; O2SAT 98
== END 2025-10-21 23:21 ==
PROVIDERS: Physician Assistant; Emergency Provider Student in an Organized Health Care Education/Training Program; PCP Nurse Practitioner Family
DX: A41.89 Other specified sepsis (principal); R65.21 Severe sepsis with septic shock; J96.01 Acute respiratory failure with hypoxia; I95.9 Hypotension, unspecified; J18.9 Pneumonia, unspecified organism; E87.5 Hyperkalemia; E87.1 Hypo-osmolality and hyponatremia; N17.9 Acute kidney failure, unspecified; J44.0 Chronic obstructive pulmonary disease with (acute) lower respiratory infection; F17.210 Nicotine dependence, cigarettes, uncomplicated
CPT/HCPCS: 51702; 71045; 74176; 76942; 80048; 80053; 81001; 83605; 83690; 85007; 85025; 87040; 93005; 96365; 96366; 96375; 99285; 99291; J0612; J2543; J3373; J7030; J7050